=== PATIENT | male | born 1955 | race African-American/Black ===

== ENCOUNTER 2016-09-28 18:57 | Inpatient (IN) | payer OTHER ==
[~2016-09-28] VITALS: Ht 162.6 cm; Wt 55.2 kg
[~2016-09-28 18:57] MED LIST changes: -ACET-1047 PO; -AMLO10TA2 PO; -BUME1TAB PO; -CRG125 PO; -ELVI1TAB6 PO; -ESTR0.1D16 TOP; -FRRS300 PO; -GLC/500 PO; -INSDGIPEN SC; -INSHRIE SQ; -LEVO-366 PO; -LOSA50TA6 PO; -LSN40 PO; -METO50TA16 PO; -MULT-506 PO; -ONDA8TAB6 PO; -POTA10CA28 PO; -[UNRECOGNIZED DRUG - CODE] PO
[2016-09-28 19:09] VITALS: Ht 162.6 cm; Wt 55.2 kg
[2016-09-28] MEDS ORDERED: SODIUM CHLORIDE 0.9% 1000ML 1,000 ML IV STA (19:18)
--- NOTE | 2016-09-28 19:22 | EMERGENCY ROOM VISIT NOTE ---
History Report prepared by Alber: Devon Mcgee Under the Supervision of: Dr. Bruce Martin M.D. First contact with patient: 19:14 Chief Complaint: ABNORMAL LABS Stated Complaint: CRITICAL LABS History of Present Illness The patient is a 60 year old male who presents to the Emergency Room due to abnormal lab results. The patient was sent to the ED to evaluate her renal function. The patient has never had this before. She is experiencing some flank pain that began two weeks ago when she had her cold. She was placed onto antibiotics. Her cold symptoms are gone, but the pain is not. The patient is HIV positive. 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 A total of 10 systems reviewed and were otherwise negative. Past Medical & Surgical Medical Problems: (1) CKD (chronic kidney disease), stage III (2) CVA (cerebral vascular accident) (3) DM type 2 (diabetes mellitus, type 2) (4) G-6-PD deficiency (5) HIV (human immunodeficiency virus infection) (6) HTN (hypertension) (7) Rxur-kr-ufqrpr transgender person Family History No pertinent family history stated Social History Smoking Status: Never Smoker Smokeless Tobacco Use: Unknown Housing Status: other Occupation Status: unemployed Current/Historical Medications Scheduled Aspirin (Aspirin EC Low Dose), 81 MG PO QAM Atorvastatin (Atorvastatin Calcium), 40 MG PO QAM Darunavir Ethanolate (Prezista), 800 MG PO HS Rjltygtppphr-Ychtoiawrr-Yaaiwd (Genvoya [phone] mg), 1 TAB PO DAILY Estradiol (Estradiol), 1 MG PO DAILY Finasteride (Proscar), 5 MG PO DAILY Insulin Human Regular (Humulin R), 1 DOSE SQ SLIDING SCALE Latanoprost 0.005% Oph (Xalatan 0.005% Oph), 1 DROP OPB HS Levofloxacin (Levaquin), 500 MG PO DAILY Lisinopril (Lisinopril), 40 MG PO DAILY Losartan Potassium (Cozaar), 50 MG PO DAILY Metformin Hcl (Glucophage), 500 MG PO BID Allergies Coded Allergies: Penicillins (Verified Allergy, Intermediate, UNKNOWN, 03/20/16) Physical Exam Vital Signs Date Time Temp Pulse Resp B/P Pulse Ox O2 Delivery O2 Flow Rate FiO2 09/28/16 20:16 99 Room Air 09/28/16 20:16 61 18 135/70 99 Room Air 09/28/16 19:09 36.5 64 18 147/80 97 Room Air Physical Exam GENERAL: Patient is a healthy-appearing well-nourished HEAD: Normocephalic atraumatic EYES: Ocular movements intact pupils equal and react to light OROPHARYNX mucous membranes are moist no exudates present no erythema or edema present NECK: Supple no nuchal rigidity CHEST: Good equal expansion LUNGS: Clear and equal to auscultation CARDIAC: Normal S1 and S2 ABDOMEN: Soft nontender no guarding BACK: No CVA tenderness EXTREMITIES: No pain upon palpation normal muscle strength in all groups no clubbing cyanosis or edema NEURO: Patient is following commands is answering questions appropriately. Alert and oriented x3 Cranial Nerves 2-12 grossly intact Medical Decision & Procedures ER Provider Diagnostic Interpretation: Radiology results are stated below per my review and radiologist interpretation: CHEST ONE VIEW PORTABLE CLINICAL HISTORY: Pt c/o cough dyspnea COMPARISON STUDY: 03/20/2016 FINDINGS: The bones soft tissues and hemidiaphragms are normal. The cardiomediastinal silhouette is normal. The lungs are clear. The pulmonary vasculature is normal. IMPRESSION: Negative chest. Electronically signed by: Davion Lopez M.D. 09/28/2016 7:54 PM Dictated Date/Time: 09/28/2016 7:53 PM RENAL ULTRASOUND HISTORY: Renal insufficiency Pt c/o ARF COMPARISON: 12/20/2015 FINDINGS: Right kidney: Maximum dimension 9.2 cm. No evidence for hydronephrosis. Moderate increase in cortical echogenicity Left kidney: Maximum dimension 10.0 cm. No evidence for hydronephrosis. Mild increase in cortical echogenicity Bladder: No bladder wall thickening. The bilateral ureteral jets were identified. IMPRESSION: No evidence for renal hydronephrosis. Mild increase in cortical echogenicity consistent with a component of nonobstructive renal insufficiency. No major change from the prior study Electronically signed by: Davion Lopez M.D. 09/28/2016 8:54 PM Dictated Date/Time: 09/28/2016 8:53 PM Laboratory Results 09/28/16 19:50 Red Blood Count 3.18, Mean Corpuscular Volume 94.7, Mean Corpuscular Hemoglobin 32.4, Mean Corpuscular Hemoglobin Concent 34.2, Mean Platelet Volume 9.1, Neutrophils (%) (Auto) 75.2, Lymphocytes (%) (Auto) 17.2, Monocytes (%) (Auto) 6.0, Eosinophils (%) (Auto) 1.0, Basophils (%) (Auto) 0.1, Neutrophils # (Auto) 6.60, Lymphocytes # (Auto) 1.51, Monocytes # (Auto) 0.53, Eosinophils # (Auto) 0.09, Basophils # (Auto) 0.01 09/28/16 19:50 Test 09/28/16 19:50 White Blood Count 8.78 K/uL (4.8-10.8) Red Blood Count 3.18 M/uL (4.7-6.1) Hemoglobin 10.3 g/dL (14.0-18.0) Hematocrit 30.1 % (42-52) Mean Corpuscular Volume 94.7 fL (80-100) Mean Corpuscular Hemoglobin 32.4 pg (25-34) Mean Corpuscular Hemoglobin Concent 34.2 g/dl (32-36) Platelet Count 381 K/uL (130-400) Mean Platelet Volume 9.1 fL (7.4-10.4) Neutrophils (%) (Auto) 75.2 % Lymphocytes (%) (Auto) 17.2 % Monocytes (%) (Auto) 6.0 % Eosinophils (%) (Auto) 1.0 % Basophils (%) (Auto) 0.1 % Neutrophils # (Auto) 6.60 K/uL (1.4-6.5) Lymphocytes # (Auto) 1.51 K/uL (1.2-3.4) Monocytes # (Auto) 0.53 K/uL (0.11-0.59) Eosinophils # (Auto) 0.09 K/uL (0-0.5) Basophils # (Auto) 0.01 K/uL (0-0.2) RDW Standard Deviation 43.6 fL (36.4-46.3) RDW Coefficient of Variation 12.5 % (11.5-14.5) Immature Granulocyte % (Auto) 0.5 % Immature Granulocyte # (Auto) 0.04 K/uL (0.00-0.02) Anion Gap 11.0 mmol/L (3-11) Est Creatinine Clear Calc Drug Dose 15.3 ml/min Estimated GFR () 18.0 Estimated GFR (Non- 15.5 BUN/Creatinine Ratio 19.4 (10-20) Calcium Level 9.1 mg/dl (8.5-10.1) Total Bilirubin 0.4 mg/dl (0.2-1) Direct Bilirubin 0.2 mg/dl (0-0.2) Aspartate Amino Transf (AST/SGOT) 18 U/L (15-37) Alanine Aminotransferase (ALT/SGPT) 24 U/L (12-78) Alkaline Phosphatase 69 U/L (45-117) Total Protein 9.0 gm/dl (6.4-8.2) Albumin 2.7 gm/dl (3.4-5.0) Medications Administered Medications (Trade) Dose Ordered Sig/Carlin Route Start Time Stop Time Status Last Admin Dose Admin Sodium Chloride (Nss 1000ml) 1,000 ml @ 999 mls/hr Q1H1M STAT IV 09/28/16 19:18 09/28/16 20:18 DC 09/28/16 19:18 999 MLS/HR Calcium Gluconate (Calcium Gluconate 10%) 1,000 mg NOW STAT IV 09/28/16 20:46 09/28/16 20:48 DC 09/28/16 21:39 1,000 MG Dextrose (Dextrose 50% 50ML Syringe) 50 ml NOW STAT IV 09/28/16 20:46 09/28/16 20:48 DC 09/28/16 21:23 50 ML Insulin Human Regular (novoLIN-R U-100 PER UNIT) 10 units NOW STAT IV 09/28/16 20:46 09/28/16 20:48 DC 09/28/16 20:46 10 UNITS Sodium Bicarbonate 50 ml 50 ml NOW STAT IV 09/28/16 20:46 09/28/16 20:48 DC 09/28/16 21:23 50 ML Calcium Gluconate/ Sodium Chloride (Calcium Gluconate 10%/Nss 50ml) 60 ml @ 240 mls/hr NOW STAT IV 09/28/16 20:58 09/28/16 21:12 DC 09/28/16 21:24 240 MLS/HR ECG Indication: back/shoulder pain Rate (beats per minute): 57 Rhythm: sinus bradycardia Findings: RBBB, no acute ischemic change, no ectopy ED Course 1913: Past medical records reviewed. The patient was evaluated in room B7. A complete history and physical examination was performed. 1917: Sodium Chloride 1000 ml @ 999 mls/hr IV 2045: Sodium Bicarbonate 50 ml IV, Insulin Human Regular 10 units IV, Dextrose 50 ml IV, Calcium Gluconate 1000 mg IV. 2049: Upon reexamination the patient is resting. I discussed results and treatment plan with the patient. She verbalizes agreement and understanding. I spoke with Dr. Hernandez from the [facility] Hospitalist Service. The patient will be evaluated by him for further management. Medical Decision Etiologies such as metabolic, infection, hypo/hyperglycemia, electrolyte abnormalities, cardiac sources, intracerebral event, toxicologic, neurologic, as well as others were entertained. This is a 60-year-old patient that presents emergency department with HIV and is on the drug cocktail. He reports with acute renal failure. His potassium is also elevated. For this reason the patient was given normal saline bolus, bicarbonate, calcium, dextrose and insulin. Repeat examination revealed improvement patient's symptoms. Patient was sent for an ultrasound of his kidneys and I did discuss the case with the hospitalist service who agreed to admit the patient. Patient was in agreement with the treatment plan. Consults Time Called: 2044 Consulting Physician: Dr. Hernandez - [facility] Returned Call: 2049 He will be evaluating the patient for further management. Impression Primary Impression: Acute renal failure Critical Care I have personally spent greater than 30 minutes of critical care time in the direct management of this patient. This includes bedside care, interpretation of diagnostic studies, and testing, discussion with consultants, patient, and family members, and other required patient management activities. This 30 minutes is in excess of all separately billable procedures. Scribe Attestation The scribe's documentation has been prepared under my direction and personally reviewed by me in its entirety. I confirm that the note above accurately reflects all work, treatment, procedures, and medical decision making performed by me. Departure Information Dispostion Being Evaluated By Hospitalist Referrals Mike SIMMONS (PCP) Patient Instructions My [facility] Problem Qualifiers Primary Impression: Acute renal failure Acute renal failure type: unspecified Qualified Codes: N17.9 - Acute kidney failure, unspecified
--- NOTE | 2016-09-28 19:55 | DIAGNOSTIC IMAGING REPORT ---
CHEST ONE VIEW PORTABLE CLINICAL HISTORY: Pt c/o cough dyspnea COMPARISON STUDY: 03/20/2016 FINDINGS: The bones soft tissues and hemidiaphragms are normal. The cardiomediastinal silhouette is normal. The lungs are clear. The pulmonary vasculature is normal. IMPRESSION: Negative chest. Electronically signed by: Davion Lopez M.D. 09/28/2016 7:54 PM Dictated Date/Time: 09/28/2016 7:53 PM
[2016-09-28 19:57] LABS: HEMATOCRIT 30.1 % (42-52); MEAN CELL VOLUME 94.7 fL (80-100); MEAN CORPUSCULAR HEMOGLOBIN 32.4 pg (25-34); MEAN CORPUSCULAR HGB CONC 34.2 g/dl (32-36); MEAN PLATELET VOLUME 9.1 fL (7.4-10.4); PLATELET COUNT 381 K/uL (130-400); RED BLOOD COUNT 3.18 M/uL (4.7-6.1); WHITE BLOOD COUNT 8.78 K/uL (4.8-10.8)
[2016-09-28] MEDS ORDERED: ELVI1TAB6 PO (20:03)
[2016-09-28] MEDS ORDERED: INSHRIE SQ (20:03)
[2016-09-28] MEDS ORDERED: LSN40 PO (20:03)
[2016-09-28] MEDS ORDERED: LOSA50TA6 PO (20:03)
[2016-09-28] MEDS ORDERED: LEVO-366 PO (20:03)
[2016-09-28] MEDS ORDERED: GLC/500 PO (20:03)
[2016-09-28 20:14] LABS: BUN/CREATININE RATIO 19.4 (10-20); CALCIUM 9.1 mg/dl (8.5-10.1); CREATININE 3.9 mg/dl (0.60-1.40); POTASSIUM 5.9 mmol/L (3.5-5.1)
[2016-09-28 20:42] LABS: BASO % 0.1 %; BASO ABS # 0.01 K/uL (0-0.2); COMPLETE YES; IG% 0.5 %; LYMPH % 17.2 %; LYMPH ABS # 1.51 K/uL (1.2-3.4); NEUT % 75.2 %
[2016-09-28] MEDS ORDERED: CALCIUM GLUCONATE 10% 10 ML VIAL IV STA (20:46)
[2016-09-28] MEDS ORDERED: SODIUM BICARB 8.4% INJ 50 MEQ/50 ML SYR IV STA (20:46)
[2016-09-28] MEDS ORDERED: NovoLIN-R INSULIN PER UNIT CHARGE IV STA (20:46)
[2016-09-28] MEDS ORDERED: DEXTROSE 50% 50 ML SYR IV STA (20:46)
--- NOTE | 2016-09-28 20:55 | DIAGNOSTIC IMAGING REPORT ---
RENAL ULTRASOUND HISTORY: Renal insufficiency Pt c/o ARF COMPARISON: 12/20/2015 FINDINGS: Right kidney: Maximum dimension 9.2 cm. No evidence for hydronephrosis. Moderate increase in cortical echogenicity Left kidney: Maximum dimension 10.0 cm. No evidence for hydronephrosis. Mild increase in cortical echogenicity Bladder: No bladder wall thickening. The bilateral ureteral jets were identified. IMPRESSION: No evidence for renal hydronephrosis. Mild increase in cortical echogenicity consistent with a component of nonobstructive renal insufficiency. No major change from the prior study Electronically signed by: Davion Lopez M.D. 09/28/2016 8:54 PM Dictated Date/Time: 09/28/2016 8:53 PM
[2016-09-28] MEDS ORDERED: CALCIUM GLUCONATE 10% 1,000 MG in SODIUM CHLORIDE 0.9% 50ML 50 ML IV STA (20:58)
[2016-09-28] MEDS ORDERED: ACETAMINOPHEN 325 MG TAB PO PRN (21:30)
[2016-09-28] MEDS ORDERED: DiphenhydrAMINE HCL 50 MG/ML VIAL IV PRN (21:30)
[2016-09-28] MEDS ORDERED: ALUMINUM/MAGNESIUM/SIMETH (MAALOX MAX) 30 ML UDC PO PRN (21:30)
[2016-09-28] MEDS ORDERED: PROMETHAZINE HCL INJ 12.5 MG in SODIUM CHLORIDE 0.9% 50ML 50 ML IV PRN (21:30)
[2016-09-28] MEDS ORDERED: ZOLPIDEM TARTRATE 5 MG TAB PO PRN (21:30)
[2016-09-28] MEDS ORDERED: MAGNESIUM HYDROXIDE SUSP 30 ML UDC PO PRN (21:30)
[2016-09-28] MEDS ORDERED: ONDANSETRON INJ 2 MG/ML 2 ML VIAL IV PRN ×2 (21:30)
[2016-09-28] MEDS ORDERED: LORAZEPAM 2 MG/ML 1 ML VIAL IV PRN (21:30)
[2016-09-28 22:20] VITALS: BP 164/82; PULSE 69; TEMP 36.5; O2SAT 98
[2016-09-28] MEDS: SODIUM CHLORIDE 0.9% 1000ML 1,000 ML IV SCH (23:17)
--- NOTE | 2016-09-29 02:12 | History and Physical ---
History & Physical Date & Time of Service: Sep 29, 2016 at 01:59 Chief Complaint: Acute Renal Failure, Hyperalemia Primary Care Physician: Mike SIMMONS History of Present Illness Source: patient The patient is a 60-year-old transgender male resident of [facility], who presents to the emergency department due to abnormal kidney function tests performed at that facility. The patient had an upper respiratory infection a few weeks ago, those to with antibiotics, and did have resolution of the symptoms, however, the patient felt that dehydration was an issue. The patient is HIV positive on medication. Past Medical/Surgical History Medical Problems: (1) CKD (chronic kidney disease), stage III Status: Chronic (2) CVA (cerebral vascular accident) Status: Chronic (3) DM type 2 (diabetes mellitus, type 2) Status: Chronic (4) G-6-PD deficiency Status: Chronic (5) HIV (human immunodeficiency virus infection) Status: Chronic (6) HTN (hypertension) Status: Chronic (7) Vzbq-zu-rocgsn transgender person Status: Chronic Family History No pertinent family history stated Social History Smoking Status: Current Every Day Smoker Smokeless Tobacco Use: No Alcohol Use: none Drug Use: none Housing status: other ([facility] Occupational Status: unemployed Multi-Drug Resistant Organisms History of MDRO: No Allergies Coded Allergies: Penicillins (Verified Allergy, Intermediate, UNKNOWN, 03/20/16) Home Medications Scheduled Aspirin (Aspirin EC Low Dose), 81 MG PO QAM Atorvastatin (Atorvastatin Calcium), 40 MG PO QAM Darunavir Ethanolate (Prezista), 800 MG PO HS Ibahbfrvzflo-Ibdjtdcaid-Xpvtkz (Genvoya [phone] mg), 1 TAB PO DAILY Estradiol (Estradiol), 1 MG PO DAILY Finasteride (Proscar), 5 MG PO DAILY Insulin Human Regular (Humulin R), 1 DOSE SQ SLIDING SCALE Latanoprost 0.005% Oph (Xalatan 0.005% Oph), 1 DROP OPB HS Levofloxacin (Levaquin), 500 MG PO DAILY Lisinopril (Lisinopril), 40 MG PO DAILY Losartan Potassium (Cozaar), 50 MG PO DAILY Metformin Hcl (Glucophage), 500 MG PO BID Review of Systems The patient denies chest pain, palpitations, shortness of breath, cough, lower extremity swelling, vision change, hearing change, sore throat, fevers, chills, sweats, weight change, fatigue, nausea, vomiting, abdominal pain, pelvic pain, blood in urine or stool, dysuria, urinary frequency or urgency, lightheadedness , dizziness, headache, memory loss, rash, abnormal bruising or bleeding, imbalance, focal or generalized weakness, numbness or tingling in arms or legs, arthralgias or myalgias, back or neck pain, night sweats, or allergy symptoms. The review of systems is otherwise negative other than for that already noted above, and at least 10 systems have been reviewed. Physical Exam Vital Signs Date Time Temp Pulse Resp B/P Pulse Ox O2 Delivery O2 Flow Rate FiO2 09/29/16 00:00 Room Air 09/28/16 22:20 36.5 69 14 164/82 98 Room Air 09/28/16 21:58 68 16 143/80 97 Room Air 09/28/16 20:16 99 Room Air 09/28/16 20:16 61 18 135/70 99 Room Air 09/28/16 19:09 36.5 64 18 147/80 97 Room Air The patient is awake, well-developed and adequately nourished, alert and oriented 3, normocephalic and atraumatic, lying in bed and in no acute distress. HEENT--PERRL, EOMI, mucous membranes and oropharynx dry. Neck--supple, no JVD or bruits, thyroid normal, trachea midline, no adenopathy. Heart--normal S1 and S2, no extra beats, no murmurs, rubs or gallops. Lungs--clear bilaterally with good air movement, no respiratory distress, no accessory muscle use. Abdomen--normal bowel sounds and soft, nontender and nondistended, no hernias or masses, no organomegaly. Extremities--no cyanosis, clubbing or edema. There are good distal pulses b/l. Dermatologic--normal skin turgor, normal color, warm and dry, no abnormal lymph nodes, no rash. Neurologic--cranial nerves II through XII grossly intact, motor and sensory examination normal. Rheumatologic--normal range of motion, nontender, muscles and joints. Psychiatric--normal affect. Diagnostics Laboratory Results Results Past 24 Hours Test 09/28/16 19:50 2/21/17 00:15 Range/Units White Blood Count 8.78 4.8-10.8 K/uL Red Blood Count 3.18 4.7-6.1 M/uL Hemoglobin 10.3 14.0-18.0 g/dL Hematocrit 30.1 42-52 % Mean Corpuscular Volume 94.7 80-100 fL Mean Corpuscular Hemoglobin 32.4 25-34 pg Mean Corpuscular Hemoglobin Concent 34.2 32-36 g/dl Platelet Count 381 130-400 K/uL Mean Platelet Volume 9.1 7.4-10.4 fL Neutrophils (%) (Auto) 75.2 % Lymphocytes (%) (Auto) 17.2 % Monocytes (%) (Auto) 6.0 % Eosinophils (%) (Auto) 1.0 % Basophils (%) (Auto) 0.1 % Neutrophils # (Auto) 6.60 1.4-6.5 K/uL Lymphocytes # (Auto) 1.51 1.2-3.4 K/uL Monocytes # (Auto) 0.53 0.11-0.59 K/uL Eosinophils # (Auto) 0.09 0-0.5 K/uL Basophils # (Auto) 0.01 0-0.2 K/uL RDW Standard Deviation 43.6 36.4-46.3 fL RDW Coefficient of Variation 12.5 11.5-14.5 % Immature Granulocyte % (Auto) 0.5 % Immature Granulocyte # (Auto) 0.04 0.00-0.02 K/uL Sodium Level 137 136-145 mmol/L Potassium Level 5.9 3.5-5.1 mmol/L Chloride Level 109 98-107 mmol/L Carbon Dioxide Level 17 21-32 mmol/L Anion Gap 11.0 3-11 mmol/L Blood Urea Nitrogen 76 7-18 mg/dl Creatinine 3.90 0.60-1.40 mg/dl Est Creatinine Clear Calc Drug Dose 15.3 ml/min Estimated GFR () 18.0 Estimated GFR (Non- 15.5 BUN/Creatinine Ratio 19.4 10-20 Random Glucose 123 70-99 mg/dl Calcium Level 9.1 8.5-10.1 mg/dl Total Bilirubin 0.4 0.2-1 mg/dl Direct Bilirubin 0.2 0-0.2 mg/dl Aspartate Amino Transf (AST/SGOT) 18 15-37 U/L Alanine Aminotransferase (ALT/SGPT) 24 12-78 U/L Alkaline Phosphatase 69 45-117 U/L Total Protein 9.0 6.4-8.2 gm/dl Albumin 2.7 3.4-5.0 gm/dl Microbiology Results 09/29/16 MRSA DNA Surveillance Screen, Received Pending Diagnostic Radiology Patient Name: CHAUNCEY CHAU [id number] Unit Number: [id number] Dictated: 09/28/162052 Transcribed: 09/28/162052 MS Printed Date/Time: [~ rep prt dt]/[~ rep prt tm] [~ rep ct labl] - [~ rep ct ivnm] [facility] Radiology Department [place] [id number] Dictated: 09/28/162052 Transcribed: 09/28/162052 MS Printed Date/Time: [~ rep prt dt]/[~ rep prt tm] [~ rep ct labl] - [~ rep ct ivnm] RENAL ULTRASOUND HISTORY: Renal insufficiency Pt c/o ARF COMPARISON: 12/20/2015 FINDINGS: Right kidney: Maximum dimension 9.2 cm. No evidence for hydronephrosis. Moderate increase in cortical echogenicity Left kidney: Maximum dimension 10.0 cm. No evidence for hydronephrosis. Mild increase in cortical echogenicity Bladder: No bladder wall thickening. The bilateral ureteral jets were identified. IMPRESSION: No evidence for renal hydronephrosis. Mild increase in cortical echogenicity consistent with a component of nonobstructive renal insufficiency. No major change from the prior study Electronically signed by: Davion Lopez M.D. 09/28/2016 8:54 PM Dictated Date/Time: 09/28/2016 8:53 PM The status of this report is Signed. Draft = Not yet reviewed or approved by Radiologist. Signed = Reviewed and approved by Radiologist. <AttendingPhy></AttendingPhy> <FamilyPhy>Mike SIMMONS</FamilyPhy> <PrimaryPhy> Mike SIMMONS</PrimaryPhy> <UnitNumber>[id number]</UnitNumber> <VisitNumber> [id number]</VisitNumber> <PatientName>CHAUNCEY CHAU [id number]</PatientName> < DateOfBirth>1955</DateOfBirth> <Location>C[facility]B</Location> <ServiceDate></ServiceDate> <MNE>ESINDI</MNE> <OrderingPhy>Bruce Martin MD</ OrderingPhy> <OrderingPhyMNE>f rep ord dr murry</OrderingPhyMNE> <DictatingPhyMNE> f rep dict dr murry</DictatingPhyMNE> <CCListMNE>f rep ct mne</CCListMNE> < AdmittingPhyMNE>f pt admit dr murry</AdmittingPhyMNE> <AttendingPhyMNE>f pt attend dr murry</AttendingPhyMNE> <ConsultingPhyMNE>f pt consult dr murry</ConsultingPhyMNE> <FamilyPhyMNE>f pt fam dr murry</FamilyPhyMNE> <OtherPhyMNE>f pt other dr murry</OtherPhyMNE> < PrimaryPhyMNE>f pt prim care dr murry</PrimaryPhyMNE> <ReferringPhyMNE>f pt referring dr murry</ReferringPhyMNE> Patient Name: CHAUNCEY CHAU [id number] Unit Number: [id number] Dictated: 09/28/161952 Transcribed: 09/28/161952 MA Printed Date/Time: [~ rep prt dt]/[~ rep prt tm] [~ rep ct labl] - [~ rep ct ivnm] [facility] [place] [place] [address] Dictated: 09/28/161952 Transcribed: 09/28/161952 MS Printed Date/Time: [~ rep prt dt]/[~ rep prt tm] [~ rep ct labl] - [~ rep ct ivnm] [~ rep ct add3]] CHEST ONE VIEW PORTABLE CLINICAL HISTORY: Pt c/o cough dyspnea COMPARISON STUDY: 03/20/2016 FINDINGS: The bones soft tissues and hemidiaphragms are normal. The cardiomediastinal silhouette is normal. The lungs are clear. The pulmonary vasculature is normal. IMPRESSION: Negative chest. Electronically signed by: Davion Lopez M.D. 09/28/2016 7:54 PM Dictated Date/Time: 09/28/2016 7:53 PM The status of this report is Signed. Draft = Not yet reviewed or approved by Radiologist. Signed = Reviewed and approved by Radiologist. <AttendingPhy></AttendingPhy> <FamilyPhy>Mike SIMMONS</FamilyPhy> <PrimaryPhy> Mike SIMMONS</PrimaryPhy> <UnitNumber>[id number]</UnitNumber> <VisitNumber> [id number]</VisitNumber> <PatientName>CHAUNCEY CHAU [id number]</PatientName> < DateOfBirth>1955</DateOfBirth> <Location>C.EDB</Location> <ServiceDate></ServiceDate> <MNE>ESINDI</MNE> <OrderingPhy>Bruce Martin MD</ OrderingPhy> <OrderingPhyMNE>f rep ord dr murry</OrderingPhyMNE> <DictatingPhyMNE> f rep dict dr murry</DictatingPhyMNE> <CCListMNE>f rep ct mne</CCListMNE> < AdmittingPhyMNE>f pt admit dr murry</AdmittingPhyMNE> <AttendingPhyMNE>f pt attend dr murry</AttendingPhyMNE> <ConsultingPhyMNE>f pt consult dr murry</ConsultingPhyMNE> <FamilyPhyMNE>f pt fam dr murry</FamilyPhyMNE> <OtherPhyMNE>f pt other dr murry</OtherPhyMNE> < PrimaryPhyMNE>f pt prim care dr murry</PrimaryPhyMNE> <ReferringPhyMNE>f pt referring dr murry</ReferringPhyMNE> EKG EKG shows sinus bradycardia at 57 bpm, right bundle branch block, LVH. Right bundle branch block is new compared to last EKG of 03/21/2016 Impression Assessment and Plan Acute renal failure with mild hyperkalemia--the patient will be admitted to the medical floor. He did receive an amp of D50 followed by 10 units of regular insulin by emergency department personnel. He'll be placed on normal saline at 150 ML's per hour, will hold lisinopril 40 mg by mouth daily and losartan potassium 50 mg by mouth daily. We'll repeat BMP and magnesium levels in the a.m. His renal ultrasound showed mild cortical hypoechogenicity. Continue enteric-coated aspirin 81 mg by mouth every morning. Hypertension--hold lisinopril and losartan as noted above due to acute renal failure. We'll place on amlodipine 5 mg by mouth twice a day with hold parameters. HIV--continue all current medications: Prezista 800mg po hs,, Genvoya 150/150/ 200/10 one by mouth daily. 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 Diabetes mellitus--hold metformin until creatinine is less than 1.4. Hold regular insulin sliding scale. Place on Accu-Cheks before meals and at bedtime with NovoLog coverage. Hypercholesterolemia--continue atorvastatin 40 mg by mouth every morning. BPH--continue Proscar 5 mg by mouth daily. Glaucoma--continue Xalatan 0.005%, solution, 1 drop OPB at bedtime Level of Care Med/Surg Advanced Directives Existing Advance Directive: No Existing Living Will: No Existing Power of Literacy Education Professor: No Resuscitation Status FULL RESUSCITATION VTE Prophylaxis VTE Risk Assessment Done? Y/N: Yes Risk Level: Moderate Given or contraindicated: SCD's
[2016-09-29] MEDS: SODIUM CHLORIDE 0.9% 1000ML 1,000 ML IV SCH ×3 (05:14→21:31)
[2016-09-29 06:33] LABS: BASO % 0.1 %; BASO ABS # 0.01 K/uL (0-0.2); EOS % 1.3 %; HEMATOCRIT 25.8 % (42-52); IG% 0.3 %; LYMPH % 22.8 %; LYMPH ABS # 1.64 K/uL (1.2-3.4); MEAN CELL VOLUME 92.1 fL (80-100); MEAN CORPUSCULAR HEMOGLOBIN 31.4 pg (25-34); MEAN CORPUSCULAR HGB CONC 34.1 g/dl (32-36); MONO % 4.9 %; NEUT % 70.6 %; PLATELET COUNT 336 K/uL (130-400)
[2016-09-29 07:01] LABS: COMPLETE YES; HYPERSEGMENTED POLYS 1+
[2016-09-29 07:09] LABS: CALCIUM 8.5 mg/dl (8.5-10.1); CREATININE 2.8 mg/dl (0.60-1.40); MAGNESIUM 2.3 mg/dl (1.8-2.4); POTASSIUM 5.8 mmol/L (3.5-5.1)
[2016-09-29] MEDS: [UNRECOGNIZED DRUG - REMARK] SCH ×3 (07:36→16:00)
[2016-09-29 07:46] VITALS: BP 176/81; PULSE 69; TEMP 36.7; O2SAT 97
[2016-09-29] MEDS: ATORVASTATIN 40 MG TAB PO SCH (07:48)
[2016-09-29] MEDS: ESTRADIOL 1 MG TAB PO SCH (07:48)
[2016-09-29] MEDS: FINASTERIDE 5 MG TAB PO SCH (07:48)
[2016-09-29] MEDS: AMLODIPINE BESYLATE 5 MG TAB PO SCH ×2 (07:49→21:31)
[2016-09-29] MEDS ORDERED: SODIUM POLYST. SULF SUSP 15G/60ML PO ONE (08:00)
[2016-09-29] MEDS: ASPIRIN 81 MG ECTAB PO SCH (09:12)
[2016-09-29 16:00] VITALS: BP 136/75; PULSE 68; TEMP 36.9; O2SAT 98
[2016-09-29 16:25] VITALS: O2SAT 98
[2016-09-29] MEDS ORDERED: DEXTROSE 50% 50 ML SYR IV PRN (17:45)
[2016-09-29] MEDS ORDERED: GLUCOSE 10 TABS/TUBE PO PRN (17:45)
[2016-09-29] MEDS ORDERED: GLUCAGON FOR INJ 1 MG VIAL SQ PRN (17:45)
[2016-09-29] MEDS ORDERED: GLUCOSE 40% GEL 15 GM TUBE PO PRN (17:45)
[2016-09-29] MEDS ORDERED: LATANOPROST 0.005% OP SOLN 2.5 ML BTL OPB SCH (21:00)
[2016-09-29] MEDS: INSULIN ASPART 100 UNITS/ML 3 ML PEN SC SCH (21:00)
[2016-09-29 23:37] VITALS: BP 162/78; PULSE 71; TEMP 36.8; O2SAT 98
[2016-09-30] MEDS: SODIUM CHLORIDE 0.9% 1000ML 1,000 ML IV SCH ×2 (01:48→08:18)
[2016-09-30 06:54] LABS: BASO % 0.2 %; BASO ABS # 0.01 K/uL (0-0.2); EOS % 1.6 %; HEMATOCRIT 24.5 % (42-52); IG% 0.5 %; LYMPH % 22.4 %; LYMPH ABS # 1.44 K/uL (1.2-3.4); MEAN CORPUSCULAR HEMOGLOBIN 31.8 pg (25-34); MEAN CORPUSCULAR HGB CONC 33.5 g/dl (32-36); MEAN PLATELET VOLUME 9.2 fL (7.4-10.4); MONO % 7.3 %; PLATELET COUNT 346 K/uL (130-400); RED BLOOD COUNT 2.58 M/uL (4.7-6.1); WHITE BLOOD COUNT 6.43 K/uL (4.8-10.8)
[2016-09-30 07:22] LABS: COMPLETE YES; EOSINOPHIL % 0.9 %; HYPERSEGMENTED POLYS 1+; LYMPH ABS # 0.79 K/uL (1.2-3.4); LYMPHOCYTE % 12.3 %; NEUTROPHILS % 82.4 %
[2016-09-30 07:35] VITALS: BP 163/82; PULSE 68; TEMP 36.9; O2SAT 98
[2016-09-30 07:47] LABS: BUN/CREATININE RATIO 18.8 (10-20); CALCIUM 7.5 mg/dl (8.5-10.1); CREATININE 1.9 mg/dl (0.60-1.40); MAGNESIUM 1.8 mg/dl (1.8-2.4); POTASSIUM 5.1 mmol/L (3.5-5.1)
[2016-09-30] MEDS: [UNRECOGNIZED DRUG - REMARK] SCH ×2 (08:00)
[2016-09-30] MEDS: ESTRADIOL 1 MG TAB PO SCH (08:17)
[2016-09-30] MEDS: AMLODIPINE BESYLATE 5 MG TAB PO SCH (08:17)
[2016-09-30] MEDS: FINASTERIDE 5 MG TAB PO SCH (08:17)
[2016-09-30] MEDS: INSULIN ASPART 100 UNITS/ML 3 ML PEN SC SCH (08:17)
[2016-09-30] MEDS: ASPIRIN 81 MG ECTAB PO SCH (08:18)
[2016-09-30] MEDS: ATORVASTATIN 40 MG TAB PO SCH (08:18)
--- NOTE | 2016-09-30 11:06 | Discharge Instructions ---
Discharge Instructions Admission Reason for Admission: Acute Renal Failure, Hyperalemia Discharge Discharge Diagnosis / Problem: Acute kidney injury, hyperkalemia Discharge Goals Goal(s): Decrease discomfort, Improve function, Increase independence, Improve disease control, Diagnostic testing, Therapeutic intervention Activity Recommendations Activity Limitations: resume your previous activity Exercise/Sports Limitations: none Shower/Bathe: no limitations Driving or Machine Use: no limitations . Instructions / Follow-Up Instructions / Follow-Up Patient to be discharged back to correctional facility Please continue to hold lisinopril, losartan and metformin Can take norvasc 10 mg daily for blood pressure and please utilize sliding scale insulin or another replacement pill for hyperglycemia Will need repeat BMP in 2 days to assess kidney function Current Hospital Diet Patient's current hospital diet: Renal Diet, Diabetes Type 2 Diet Discharge Diet Recommended Diet: Diabetes Type 2 Diet Fluid Restriction: None Pending Studies Studies pending at discharge: no Medical Emergencies . Who to Call and When: Medical Emergencies: If at any time you feel your situation is an emergency, please call 911 immediately. . Non-Emergent Contact Non-Emergency issues call your: Primary Care Provider Call Non-Emergent contact if: you have a fever, your pain is worsening . . "Provider Documentation" section prepared by Guillermo Swanson. VTE Core Measure Inpt VTE Proph given/why not?: SCD's
[2016-09-30] MEDS ORDERED: AMLO10TA2 PO (11:07)
[2016-09-30 11:25] VITALS: BP 163/82; PULSE 68; TEMP 36.9; O2SAT 98
[2016-09-30] MEDS ORDERED: BENZONATATE 100MG CAP PO ONE (11:45)
--- NOTE | 2016-09-30 14:29 | Discharge Summary ---
Discharge Summary Date of Service Sep 30, 2016. Discharge Summary Admission Date: Sep 28, 2016 at 21:25 Discharge Date: Sep 30, 2016 Discharge Disposition: Home ([facility]rection[facility] facility) Principal Diagnosis: Acute kidney injury, hyperkalemia Medication Reconciliation New Medications: Amlodipine Besylate (Norvasc) 10 Mg Tab 1 TAB PO DAILY for 30 Days, #30 TAB 5 Refills Continued Medications: Aspirin (Aspirin EC Low Dose) 81 Mg Ectab 81 MG PO QAM for 30 Days Atorvastatin (Atorvastatin Calcium) 40 Mg Tab 40 MG PO QAM for 30 Days, #30 TAB Darunavir Ethanolate (Prezista) 800 Mg Tab 800 MG PO HS Kwqnmzekyutu-Gsqcupyptw-Dntxpv (Genvoya [phone] mg) 1 Tab Tab 1 TAB PO DAILY Estradiol (Estradiol) 2 Mg Tab 1 MG PO DAILY for 90 Days, #45 TAB 3 Refills Finasteride (Proscar) 5 Mg Tab 5 MG PO DAILY, TAB Insulin Human Regular (Humulin R) 100 Units/Ml Susp 1 DOSE SQ SLIDING SCALE 201-250= 2 UNITS 251-300= 4 UNITS 301-350= 6 UNITS 351-400= 8 UNITS 401-450= 10 UNITS 451-500= 12 UNITS Latanoprost 0.005% Oph (Xalatan 0.005% Oph) Soln 1 DROP OPB HS Discontinued Medications: Levofloxacin (Levaquin) 500 Mg Tab 500 MG PO DAILY for 7 Days, TAB Lisinopril (Lisinopril) 40 Mg Tab 40 MG PO DAILY Losartan Potassium (Cozaar) 50 Mg Tab 50 MG PO DAILY, TAB Metformin Hcl (Glucophage) 500 Mg Tab 500 MG PO BID, TAB Discharge Exam Review of Systems: Constitutional: No chills, No fever ENT: No nasal symptoms, No sore throat, No unusual epistaxis Respiratory: + cough, No sputum Cardiovascular: No chest pain, No claudication, No edema, No orthopnea Abdomen: No diarrhea, No nausea, No pain, No vomiting Musculoskeletal: No joint pain, No muscle pain Genitourinary - Female: No dysuria, No urinary frequency, No urinary incontinence, No urinary urgency Neurologic: No paralysis, No weakness Physical Exam: General Appearance: WD/WN, no apparent distress Neck: supple, thyroid normal Respiratory/Chest: chest non-tender, lungs clear Cardiovascular: no gallop, no JVD Abdomen / GI: non tender, soft Neurologic/Psychiatric: alert, oriented x 3 Hospital Course Acute renal failure with mild hyperkalemia--the patient was admitted to the medical floor. He did receive an amp of D50 followed by 10 units of regular insulin by emergency department personnel. He'll be placed on normal saline at 150 ML's per hour, will hold lisinopril 40 mg by mouth daily and losartan potassium 50 mg by mouth daily. Renal ultrasound showed mild cortical hypoechogenicity but no hydronephrosis. Cr 3.9 --> 2.8 --> 1.9. Will recheck in 2 more days on discharge. Cont to hold lisinopril, losartan and metformin till then. Hypertension--hold lisinopril and losartan as noted above due to acute renal failure. We'll place on amlodipine 10 mg PO daily and continue on discharge HIV--continue all current medications: Prezista 800mg PO HS, Genvoya 150/150/200 /10 one by mouth daily. 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 Diabetes mellitus--hold metformin until creatinine is less than 1.4. Hold regular insulin sliding scale. Place on Accu-Cheks before meals and at bedtime with NovoLog coverage. Hypercholesterolemia--continue atorvastatin 40 mg by mouth every morning. BPH--continue Proscar 5 mg by mouth daily. Glaucoma--continue Xalatan 0.005%, solution, 1 drop OPB at bedtime Total Time Spent: Greater than 30 minutes This includes examination of the patient, discharge planning, medication reconciliation, and communication with other providers. Discharge Instructions Please refer to the electronic Patient Visit Report (Discharge Instructions) for additional information.
[2017-04-25] MEDS ORDERED: FRRS300 PO (18:23)
[2017-04-25] MEDS ORDERED: INSDGIPEN SC (18:23)
[2017-04-25] MEDS ORDERED: BUME1TAB PO (18:23)
[2017-04-25] MEDS ORDERED: POTA10CA28 PO (18:23)
[2017-04-25] MEDS ORDERED: ACET-1047 PO (18:23)
[2017-04-25] MEDS ORDERED: CRG125 PO (18:23)
== END 2016-09-30 13:08 | disposition home or self-care (01) | DRG 684 ==
LOC: ENRESERVDT → ENRESERVTM → C.EDB 18:58 → C.4E 21:25
PROVIDERS: ADMIT Hospitalist; ATTEND Hospitalist
DX: N17.9 Acute kidney failure, unspecified (principal); E87.5 Hyperkalemia; N18.3 Chronic kidney disease, stage 3 (moderate); F17.210 Nicotine dependence, cigarettes, uncomplicated; N40.0 Benign prostatic hyperplasia without lower urinary tract symptoms; I12.9 Hypertensive chronic kidney disease with stage 1 through stage 4 chronic kidney disease, or unspecified chronic kidney disease; D55.0 Anemia due to glucose-6-phosphate dehydrogenase [G6PD] deficiency; H40.9 Unspecified glaucoma; E78.00 Pure hypercholesterolemia, unspecified; E11.22 Type 2 diabetes mellitus with diabetic chronic kidney disease; Z21 Asymptomatic human immunodeficiency virus [HIV] infection status; Z87.890 Personal history of sex reassignment; Z86.73 Personal history of transient ischemic attack (TIA), and cerebral infarction without residual deficits; Z79.899 Other long term (current) drug therapy; Z79.82 Long term (current) use of aspirin; Z79.4 Long term (current) use of insulin

== ENCOUNTER → 2016-09-28 | Outpatient (CLI) | payer OTHER ==
[~2016-09-28] MED LIST: ACET-1047 PO; AMLO10TA2 PO; APR25 PO; ASPEC81 PO; BUME1TAB PO; CRG125 PO; CYCL10TA6 PO; DARU1TAB5 PO; DOLU1TAB PO; ELVI1TAB6 PO; ESTR0.1D16 TOP; ESTR2TAB PO; FINA5TAB PO; FRRS300 PO; GLC/500 PO; INSDGIPEN SC; INSHRIE SQ; LATA0.009 OPB; LEVO-366 PO; LOSA50TA6 PO; LPT40 PO; LSN40 PO; METO50TA16 PO; MULT-477 PO; MULT-506 PO; NRV5 PO; ONDA8TAB6 PO; POTA10CA28 PO; RTN100 PO; [UNRECOGNIZED DRUG - CODE] PO; [UNRECOGNIZED DRUG - CODE] PO
[2016-09-28 16:06] LABS: BLOOD UREA NITROGEN 75 mg/dl (7-18); BUN/CREATININE RATIO 19.6 (10-20); CALCIUM 8.7 mg/dl (8.5-10.1); CARBON DIOXIDE 17 mmol/L (21-32); CHLORIDE 113 mmol/L (98-107); GLUCOSE 94 mg/dl (70-99); SODIUM 141 mmol/L (136-145)
[2016-09-28 16:08] LABS: POTASSIUM 6.4 mmol/L (3.5-5.1)
== END ==
LOC: C.LABSPEC 14:54
DX: N17.9 Acute kidney failure, unspecified (principal)

== ENCOUNTER 2017-04-16 10:00 | Inpatient (IN) | payer OTHER ==
[2017-04-16] VITALS (37 sets, daily range): BP systolic 74–154; BP diastolic 52–78; PULSE 33–71; TEMP 30.6–34.6; O2SAT 70–100; BMI 22.9
[~2017-04-16] VITALS: Ht 177.8 cm; Wt 66.5 kg
[~2017-04-16 10:00] MED LIST changes: +AMLO10TA2 PO; -APR25 PO; -CYCL10TA6 PO; -DOLU1TAB PO; +ELVI1TAB6 PO; +INSHRIE SQ; -MULT-477 PO; -NRV5 PO; -RTN100 PO; -[UNRECOGNIZED DRUG - CODE] PO
[2017-04-16] MEDS ORDERED: RAPID SEQUENCE INDUCTION BAG ONE (10:04)
[2017-04-16] MEDS ORDERED: ONDA8TAB6 PO (10:12)
[2017-04-16] MEDS ORDERED: BUME1TAB PO (10:12)
[2017-04-16] MEDS ORDERED: MULT-506 PO (10:12)
[2017-04-16] MEDS ORDERED: METO50TA16 PO (10:12)
[2017-04-16] MEDS ORDERED: ESTR0.1D16 TOP (10:12)
[2017-04-16] MEDS ORDERED: POTA10CA28 PO (10:12)
[2017-04-16] MEDS ORDERED: [UNRECOGNIZED DRUG - CODE] PO (10:12)
[2017-04-16] MEDS ORDERED: VECURONIUM BROMIDE 10 MG VIAL IV STA (10:13)
[2017-04-16] MEDS ORDERED: PROPOFOL IV EMULSION 10 MG/ML 100 ML VIAL IV ONE (10:15)
[2017-04-16] MEDS ORDERED: PROPOFOL IV EMULSION 10 MG/ML 100 ML VIAL IV PRN (10:15)
[2017-04-16] MEDS ORDERED: MAGNESIUM SULFATE 1GM / D5W 1 GM BAG IV STA (10:16)
[2017-04-16] MEDS ORDERED: METOPROLOL TARTRATE 1 MG/ML VIAL IV STA (10:17)
--- NOTE | 2017-04-16 10:26 | DIAGNOSTIC IMAGING REPORT ---
CHEST ONE VIEW PORTABLE HISTORY: 61 years-old Male CHEST PAIN acute atypical chest pain with CODE BLUE. COMPARISON: Chest radiograph 09/28/2016 TECHNIQUE: Portable supine AP view of the chest FINDINGS: Endotracheal tube is present terminating 3 mm superior to the mil coursing towards the right mainstem bronchus. Cardiac silhouette is moderately enlarged. Lungs are hypoinflated with bronchovascular crowding and pulmonary vascular congestion. No pneumothorax, pleural effusion or focal airspace consolidation. The bones are grossly intact. IMPRESSION: 1. Low-lying endotracheal tube. Recommend retraction of approximately 2.5 to 3 cm. 2. Cardiomegaly with hypoinflation, bronchovascular crowding and mild pulmonary vascular congestion. The above report was generated using voice recognition software. It may contain grammatical, syntax or spelling errors. Electronically signed by: Dickson Tate M.D. 04/16/2017 10:24 AM Dictated Date/Time: 04/16/2017 10:22 AM
--- NOTE | 2017-04-16 10:31 | EMERGENCY ROOM VISIT NOTE ---
History Report prepared by Alber: Eulalia Latham Under the Supervision of: Dr. Bruce Martin M.D. First contact with patient: 10:01 Stated Complaint: RESPIRATORY DIFFICULTY History of Present Illness The patient is a 61 year old male who presents to the Emergency Room for cardiac arrest. The patient is currently incarcerated at [facility]. Per EMS he has been short of breath for the past two days with bilateral leg swelling. The patient went asystolic in the ambulance and compressions were performed. A code blue was called in the ED prior to the patient's arrival. The history is limited secondary to cardiac arrest. Source of History: EMS History Limited By: cardiac arrest Onset: 2 days CLASSIFICATION CLERK Position: chest Timing: constant Associated Symptoms: + SOB Note: Pt has bilateral leg swelling. Review of Systems ROS is limited secondary to cardiac arrest. Past Medical & Surgical Medical Problems: (1) Cardiac arrest (2) CKD (chronic kidney disease), stage III (3) CVA (cerebral vascular accident) (4) DM type 2 (diabetes mellitus, type 2) (5) G-6-PD deficiency (6) HIV (human immunodeficiency virus infection) (7) HTN (hypertension) (8) Egus-ua-uqtahb transgender person Family History No pertinent family history stated Social History Smoking Status: Current Every Day Smoker Drug Use: none Housing Status: other Occupation Status: unemployed Current/Historical Medications Scheduled Amlodipine Besylate (Norvasc), 1 TAB PO DAILY Aspirin (Aspirin EC Low Dose), 81 MG PO QAM Atorvastatin (Atorvastatin Calcium), 40 MG PO QAM Bumetanide (Bumex), 1 MG PO DIRECTED Darunavir Ethanolate (Prezista), 800 MG PO HS Emsmrbwvaipo-Pcugzxoufu-Orojqz (Genvoya [phone] mg), 1 TAB PO DAILY Estradiol (Estradiol), 1 MG PO DAILY Estradiol (Climara), 0.1 MG TOP DAILY Finasteride (Proscar), 5 MG PO DAILY Insulin Human Regular (Humulin R), 1 DOSE SQ SLIDING SCALE Latanoprost 0.005% Oph (Xalatan 0.005% Oph), 1 DROP OPB HS Metoprolol Tartrate (Lopressor) (Lopressor), 50 MG PO BID Multivitamin (Multivitamin), 1 TAB PO DAILY Potassium Chloride (Micro-K Ext Rel), 10 MEQ PO DAILY Scheduled PRN Glucose (Bd Glucose), 4 MG PO QID PRN for PRN Ondansetron Hcl (Zofran), 8 MG PO BID PRN for Nausea Allergies Coded Allergies: Penicillins (Verified Allergy, Intermediate, UNKNOWN, 04/16/17) Physical Exam Vital Signs Date Time Temp Pulse Resp B/P (MAP) Pulse Ox O2 Delivery O2 Flow Rate FiO2 04/16/17 11:50 77 12 04/16/17 11:39 121/57 04/16/17 11:36 122/59 04/16/17 11:35 43 12 100 04/16/17 11:34 123/58 04/16/17 11:32 122/59 04/16/17 11:30 45 12 120/59 100 04/16/17 11:28 123/61 04/16/17 11:26 118/60 04/16/17 11:25 46 12 100 04/16/17 11:24 123/61 04/16/17 11:20 48 12 100 04/16/17 11:19 124/55 04/16/17 11:16 125/61 04/16/17 11:15 48 12 100 04/16/17 11:14 125/62 04/16/17 11:12 132/64 04/16/17 11:10 50 12 131/60 100 04/16/17 11:05 55 12 100 Mechanical Ventilator 100 04/16/17 11:04 149/68 04/16/17 11:02 177/75 04/16/17 11:01 223/91 04/16/17 11:00 88 12 100 04/16/17 10:58 122/85 04/16/17 10:56 117/62 04/16/17 10:55 40 12 130/63 100 04/16/17 10:54 129/59 04/16/17 10:52 126/61 04/16/17 10:50 40 12 128/61 100 04/16/17 10:48 127/61 04/16/17 10:46 130/61 04/16/17 10:45 43 12 100 04/16/17 10:44 140/64 04/16/17 10:42 126/65 04/16/17 10:40 43 7 120/71 100 04/16/17 10:35 0 04/16/17 10:30 0 04/16/17 10:25 0 04/16/17 10:22 141/63 04/16/17 10:20 48 12 100 04/16/17 10:19 47 04/16/17 10:15 59 100 04/16/17 10:12 227/90 04/16/17 10:11 88 04/16/17 10:10 94 200/113 88 04/16/17 10:08 89 04/16/17 10:08 200/113 04/16/17 10:07 104 04/16/17 10:06 82 04/16/17 10:04 36.4 0 0 137/116 94 Ambu-Bag 100 04/16/17 10:04 97 04/16/17 10:00 100 Physical Exam GENERAL: Patient is in acute distress. CPR is in progress. HEAD: Normocephalic atraumatic EYES: Pupils are fixed and dilated. OROPHARYNX mucous membranes are moist no exudates present no erythema or edema present NECK: Supple no nuchal rigidity CHEST: Good equal expansion LUNGS: Agonal respirations CARDIAC: Normal S1 and S2 ABDOMEN: Soft RECTAL: Heme negative BACK: No bruising noted EXTREMITIES: No pain upon palpation normal muscle strength in all groups no clubbing cyanosis or edema NEURO: GCS 3. Does not respond to painful stimuli. Medical Decision & Procedures ER Provider Diagnostic Interpretation: Radiology results as stated below per my review and radiologist interpretation: CHEST ONE VIEW PORTABLE HISTORY: 61 years-old Male CHEST PAIN acute atypical chest pain with CODE BLUE. COMPARISON: Chest radiograph 09/28/2016 TECHNIQUE: Portable supine AP view of the chest FINDINGS: Endotracheal tube is present terminating 3 mm superior to the mil coursing towards the right mainstem bronchus. Cardiac silhouette is moderately enlarged. Lungs are hypoinflated with bronchovascular crowding and pulmonary vascular congestion. No pneumothorax, pleural effusion or focal airspace consolidation. The bones are grossly intact. IMPRESSION: 1. Low-lying endotracheal tube. Recommend retraction of approximately 2.5 to 3 cm. 2. Cardiomegaly with hypoinflation, bronchovascular crowding and mild pulmonary vascular congestion. The above report was generated using voice recognition software. It may contain grammatical, syntax or spelling errors. Electronically signed by: Dickson Tate M.D. 04/16/2017 10:24 AM Dictated Date/Time: 04/16/2017 10:[address] HEAD WITHOUT CONTRAST (CT) CLINICAL HISTORY: Cardiac arrest COMPARISON STUDY: 03/20/2016 TECHNIQUE: Axial CT of the brain is performed from the vertex to the skull base. IV contrast was not administered for this examination. A dose lowering technique was utilized adhering to the principles of ALARA. CT DOSE: 638.56 mGycm FINDINGS: No intra or extra-axial mass lesions are visualized. There is no CT evidence of acute cortical infarction. There is no evidence of midline shift. There is no acute hemorrhage. No calvarial fractures are visualized. There are moderate white matter hypodensities likely on a small vessel basis. There is an old right thalamic lacunar infarct. There is no evidence of pathologic ventricular dilatation. There is no evidence of acute sinusitis IMPRESSION: 1. No acute intracranial findings 2. Moderate white matter disease likely on a small vessel basis. This appears slightly progressive 3. Old right thalamic infarct 4. Given the clinical history of a cardiac arrest, if the patient's neurological status does not improve then an MRI should be considered in follow-up. Electronically signed by: Barron Alonso M.D. 04/16/2017 10:41 AM Dictated Date/Time: 04/16/2017 10:[address] ANGIOGRAM OF THE CHEST CLINICAL HISTORY: Cardiac arrest COMPARISON STUDY: Chest x-ray dated 04/16/2017 TECHNIQUE: Following the IV administration of 94 mL of Optiray-320, CT angiogram of the thorax was performed from the thoracic inlet to the lung bases utilizing the pulmonary embolus protocol. Images are reviewed in the axial, sagittal, and coronal planes. IV contrast was administered without complication. MIP imaging was performed. A dose lowering technique was utilized adhering to the principles of ALARA. CT DOSE: 497.97 mGycm FINDINGS: No pathologically enlarged axillary mediastinal or hilar lymph nodes were visualized. The ascending thoracic aorta measures 37 mm in diameter. There is mild motion artifact. There are no pulmonary artery filling defects to indicate acute pulmonary embolism. There is a small right pleural effusion There are bilateral lower lobe pulmonary airspace opacities. There is mild septal edema. There is a 6 mm right upper lobe subsolid pulmonary nodule as visualized in image #[id number]. There is a 5.5 mm groundglass pulmonary nodule within the right middle lobe as visualized on image #[id number]. There is a small amount of venous air likely iatrogenic. There is an endotracheal tube, the tip of which extends into the proximal right mainstem bronchus. IMPRESSION: 1. Study mildly compromised due to patient motion artifact. No evidence of acute pulmonary embolism 2. Endotracheal tube positioned with its tip in the proximal right mainstem bronchus 3. Cardiomegaly, interstitial edema, and small right pleural effusion 4. Dependent bibasal airspace opacities. While likely atelectatic, aspiration or a bilateral pneumonia could appear similar 5. 5.5 mm right middle lobe groundglass pulmonary nodule, and 6 mm subsolid right upper lobe pulmonary nodule. 3-[address] follow-up is recommended. Please refer to below summary of Fleischner criteria recommendations for follow-up of incidental CT nodules (Mary Rose, Guidelines for management of small pulmonary nodules detected on CT scans: A statement from the Fleischner Society, Radiology 237: [phone].) SOLID NODULES Solitary nodule size: <6 mm * low risk patients: no follow-up needed * high risk patients: optional CT at 12 months Solitary nodule size: 6-8 mm * low risk patients: follow-up at 6-12 months, then consider further follow-up at 18-24 months * high risk patients: initial follow-up CT at 6-12 months and then at 18-24 months if no change Solitary nodule size: >8 mm * either low or high risk patients - consider follow-up CT at 3 months, and/or CT-PET, and/or biopsy Multiple nodules size: <6 mm * low risk patients: no routine follow-up * high risk patients: optional CT at 12 months Multiple nodules size: 6-8 mm * low risk patients: follow-up at 3-6 months, then consider further follow-up at 18-24 months * high risk patients: follow-up at 3-6 months, then at 18-24 months if no change Multiple nodules size: >8 mm * low risk patients: follow-up at 3-6 months, then consider further follow-up at 18-24 months * high risk patients: follow-up at 3-6 months, then at 18-24 months if no change Note: newly detected indeterminate nodule in persons 35 years of age or older. * low risk patients: minimal or absent history of smoking and/or other known risk factors * high risk patients: history of smoking or of other known risk factors (e.g. first degree relative with lung cancer, or exposure to asbestos, radon, uranium) * if a nodule up to 8 mm is partly solid or is ground glass further follow-up is required after 24 months to exclude possible slow growing adenocarcinoma (OSCAR) SUBSOLID NODULES Solitary pure ground-glass nodule * nodule size <6 mm - no CT follow-up required * nodule size >=6 mm - follow-up CT at 6-12 months, then every 2 years until 5 years Solitary part-solid nodule * nodule size <6 mm - no CT follow-up required * nodule size >=6 mm - follow-up CT at 3-6 months. If unchanged, and solid component remains <6 mm, then annual follow-up for 5 years Multiple subsolid nodules * nodule size <6 mm - follow-up CT at 3-6 months, consider further follow-up at 2 and 4 years if stable * nodule size >=6 mm - follow-up CT at 3-6 months, subsequent management based on the most suspicious nodule(s) Electronically signed by: Barron Alonso M.D. 04/16/2017 10:56 AM Dictated Date/Time: 04/16/2017 10:41 AM Laboratory Results Test 04/16/17 10:10 04/16/17 10:16 04/16/17 10:22 04/16/17 11:25 Pro-B-Type Natriuretic Peptide pg/ml (0-900) Bedside Hemoglobin 9.5 g/dl (14.0-18.0) Bedside Hematocrit 28 % (42-52) Bedside Sodium 141 mEq/L (135-144) Bedside Potassium 3.9 mEq/L (3.3-5.0) Bedside Chloride 115 mEq/L (101-112) Bedside Total CO2 14 mEq/l (24-31) Bedside Blood Urea Nitrogen 40 mg/dl (7-18) Bedside Creatinine 2.5 mg/dl (0.6-1.3) Bedside Glucose (other) 212 mg/dl (70-99) Bedside Ionized Calcium (Raffy) 0.96 mmol/l (1.12-1.32) Bedside Lactic Acid Venous 3.19 mmol/L (0.90-1.70) Immature Granulocyte % (Auto) 0.6 % White Blood Count 10.57 K/uL (4.8-10.8) Red Blood Count 3.28 M/uL (4.7-6.1) Hemoglobin 9.9 g/dL (14.0-18.0) Hematocrit 30.3 % (42-52) Mean Corpuscular Volume 92.4 fL (80-100) Mean Corpuscular Hemoglobin 30.2 pg (25-34) Mean Corpuscular Hemoglobin Concent 32.7 g/dl (32-36) Platelet Count 228 K/uL (130-400) Mean Platelet Volume 10.7 fL (7.4-10.4) Neutrophils (%) (Auto) 71.9 % Lymphocytes (%) (Auto) 21.6 % Monocytes (%) (Auto) 5.3 % Eosinophils (%) (Auto) 0.4 % Basophils (%) (Auto) 0.2 % Neutrophils # (Auto) 7.61 K/uL (1.4-6.5) Lymphocytes # (Auto) 2.28 K/uL (1.2-3.4) Monocytes # (Auto) 0.56 K/uL (0.11-0.59) Eosinophils # (Auto) 0.04 K/uL (0-0.5) Basophils # (Auto) 0.02 K/uL (0-0.2) Immature Granulocyte # (Auto) 0.06 K/uL (0.00-0.02) Direct Bilirubin 0.4 mg/dl (0-0.2) Total Creatine Kinase 96 U/L (39-308) Creatine Kinase MB 0.7 ng/ml (0.5-3.6) Creatine Kinase MB Ratio 0.7 (0-3.0) Lipase 600 U/L (73-393) Labs reviewed by ED physician. Medications Administered Medications (Trade) Dose Ordered Sig/Carlin Route Start Time Stop Time Status Last Admin Dose Admin Miscellaneous (Rapid Sequence Induction Bag) 1 ea STK-MED ONCE N/A 04/16/17 10:04 04/16/17 10:05 DC 04/16/17 11:40 1 EA Vecuronium Bly (Vecuronium Bly Inj) 10 mg NOW STAT IV 04/16/17 10:13 04/16/17 10:15 DC 04/16/17 10:15 10 MG Propofol (Diprivan Iv Emulsion 100ml Vial) 1 dose UD PRN IV 04/16/17 10:15 04/16/17 13:17 DC 04/16/17 11:37 1 DOSE Potassium Chloride 10 meq/ Prmx 100 ml @ 100 mls/hr NOW STAT IV 04/16/17 10:57 04/16/17 11:56 DC 04/16/17 11:38 100 MLS/HR Daptomycin 432 mg/ Sodium Chloride 58.64 ml @ 100 mls/hr NOW STAT IV 04/16/17 11:01 04/16/17 11:36 DC 04/16/17 11:38 100 MLS/HR Sodium Chloride 1,000 ml @ 0 mls/hr Q0M ONCE IV 04/16/17 11:03 04/16/17 11:06 DC 04/16/17 11:04 999 MLS/HR Pantoprazole Sodium 80 mg/ Dextrose 120 ml @ 480 mls/hr NOW ONCE IV 04/16/17 11:30 04/16/17 11:44 DC 04/16/17 11:36 480 MLS/HR Pantoprazole Sodium 40 mg/ Dextrose 100 ml @ 20 mls/hr Q5H IV 04/16/17 11:45 04/16/17 16:44 04/16/17 11:36 20 MLS/HR Procedure Endotracheal Intubation Indication cardiac arrest. The patient was on 100% oxygen via NRB prior to the procedure. Suction, airway equipment, RSI drugs, respiratory equipment, and appropriate personnel were prepared prior to the initiation of the procedure. A time out was taken. Induction was performed with succinylcholine. After observing the clinical benefit of the medications, the airway was easily visualized utilizing a 4 GlideScope. A 7.5 size ETT tube was placed atraumatically to 24 cm using standard technique. The cuff inflated without signs of malfunction. There were bilateral breath sounds, positive colormetric change, no gastric sounds, a good capnography waveform, and post procedure pulse oximetry was 100%. Post intubation sedation and paralysis was administered using vecuronium and propofol. There were no complications. ED Course 09: A code blue was called prior to the patient's arrival in the ED. 1001: Past medical records reviewed. The patient was evaluated in room B1. A complete history and physical examination was performed. The patient was intubated. Please see procedure note above for further details. 1013: Vecuronium bromide 10 mg IV 1015: Propofol 1 dose IV PRN 1016: Magnesium sulfate 2 gm IV 1057: Potassium Chloride 10 meq 100ml @ 100 mls/hr IV, Potassium Chloride 10 meq IV 1059: Potassium Chloride 80 meq PO 1101: Daptomycin 432 mg/Sodium Chloride 58.64 ml @ 100 mls/hr IV, Levofloxacin 750 mg IV, Rocephin 1 gm IV 1103: NSS 1000 ml IV 1106: Protonix IV bolus/drip 1109: I spoke with Dr. Skinner of GI. We discussed the patient's results and treatment plan. 1115: Octreotide Acetate 500 mcg/Sodium Chloride 105 ml @ 10 mls/hr IV, Octreotide Acetate 100 mcg 10 ml @ 3 mls/min IV, Ultram 50 mg NG PRN, Demerol 25 mg IV - PRN , Buspar 60 mg NG PRN 1123: I spoke with Dr. Saldaña. We discussed the patient's case. The patient will be evaluated by the [facility] for further management. 1130: Pantoprazole Sodium 80 mg/Dextrose 120 ml @ 480 mls/hr IV 1131: I spoke with Dr. Tobin, the tool lapper hand. We discussed the patient's case and the patient will be moved to the ICU for further management. 1145: Pantoprazole Sodium 40 mg/Dextrose 100 ml @ 20 mls/hr IV 1148: The patient coded again. A code blue was called in the ED. Compressions were performed. A pulse returned. The patient was immediately taken to the ICU for further care. Medical Decision Differential diagnosis: Etiologies such as cardiac ischemia, aortic dissection, pulmonary embolism, pneumonia, pneumothorax, musculoskeletal, infections, pericarditis, myocarditis , esophageal rupture, gastrointestinal, as well as others were entertained. This is a 61-year-old male who presents emergency department complaining of cardiac arrest. Upon arrival to emergency department the patient is in cardiac arrest and CPR is in progress. He had compressions for 5 minutes however had spontaneous return of circulation after epinephrine. The patient was then intubated as above. The patient appeared to be anemic according to blood work and after NG tube was placed a large amount of blood was aspirated out of the stomach. Based on this finding I was concerned that the patient had a GI bleed and started him on a Protonix bolus and drip along with a octreotide bolus and drip. In addition the patient also appears to have pneumonia on chest x-ray therefore he was pancultured and started on antibiotics. Repeat hemoglobin actually revealed the patient's hemoglobin a be stable. The patient again code in the emergency department however had a spontaneous return of circulation after receiving epi-. I did discuss the case with both gastroenterology as well as the hospitalist as well as the tool lapper hand service. The patient was transferred to the ICU. Medication Reconcilliation Current Medication List: was personally reviewed by me Consults Time Called: 1104 Consulting Physician: Dr. Skinner Returned Call: [phone] Skinner of GI. We discussed the patient's results and treatment plan. Additional Consults: Time Called: 1120 Consulted Physician: Dr. Saldaña Returned Call: [phone] Additional Comments: I spoke with Dr. Saldaña. We discussed the patient's case. The patient will be evaluated by the [facility] for further management. Time Called: 1120 Consulted Physician: Dr. Tobin Returned Call: [phone] Additional Comments: I spoke with Dr. Tobin, the tool lapper hand. We discussed the patient's case and the patient will be moved to the ICU for further management. Impression Primary Impression: GI bleed Additional Impression: Cardiac arrest Critical Care I have personally spent greater than 120 minutes of critical care time in the direct management of this patient. This includes bedside care, interpretation of diagnostic studies, and testing, discussion with consultants, patient, and family members, and other required patient management activities. This 120 minutes is in excess of all separately billable procedures. Scribe Attestation The scribe's documentation has been prepared under my direction and personally reviewed by me in its entirety. I confirm that the note above accurately reflects all work, treatment, procedures, and medical decision making performed by me. Departure Information Dispostion Being Evaluated By Hospitalist Referrals Mike SIMMONS (PCP) Problem Qualifiers Primary Impression: GI bleed GI bleed type/associated pathology: unspecified gastrointestinal hemorrhage type Qualified Codes: K92.2 - Gastrointestinal hemorrhage, unspecified
[2017-04-16 10:35] LABS: ISTAT CREATININE 2.5 mg/dl (0.6-1.3); ISTAT HEMOGLOBIN 9.5 g/dl (14.0-18.0); ISTAT IONIZED CALCIUM 0.96 mmol/l (1.12-1.32)
--- NOTE | 2017-04-16 10:42 | DIAGNOSTIC IMAGING REPORT ---
CT HEAD WITHOUT CONTRAST (CT) CLINICAL HISTORY: Cardiac arrest COMPARISON STUDY: 03/20/2016 TECHNIQUE: Axial CT of the brain is performed from the vertex to the skull base. IV contrast was not administered for this examination. A dose lowering technique was utilized adhering to the principles of ALARA. CT DOSE: 638.56 mGycm FINDINGS: No intra or extra-axial mass lesions are visualized. There is no CT evidence of acute cortical infarction. There is no evidence of midline shift. There is no acute hemorrhage. No calvarial fractures are visualized. There are moderate white matter hypodensities likely on a small vessel basis. There is an old right thalamic lacunar infarct. There is no evidence of pathologic ventricular dilatation. There is no evidence of acute sinusitis IMPRESSION: 1. No acute intracranial findings 2. Moderate white matter disease likely on a small vessel basis. This appears slightly progressive 3. Old right thalamic infarct 4. Given the clinical history of a cardiac arrest, if the patient's neurological status does not improve then an MRI should be considered in follow-up. Electronically signed by: Barron Alonso M.D. 04/16/2017 10:41 AM Dictated Date/Time: 04/16/2017 10:39 AM
[2017-04-16] MEDS ORDERED: POTASSIUM CHLORIDE 10 MEQ / 100ML WTR IV STA (10:57)
[2017-04-16] MEDS ORDERED: POTASSIUM CHLR 10 MEQ / WTR 10 MEQ in PREMIXED WATER 100 ML IV STA (10:57)
--- NOTE | 2017-04-16 10:58 | DIAGNOSTIC IMAGING REPORT ---
CT ANGIOGRAM OF THE CHEST CLINICAL HISTORY: Cardiac arrest COMPARISON STUDY: Chest x-ray dated 04/16/2017 TECHNIQUE: Following the IV administration of 94 mL of Optiray-320, CT angiogram of the thorax was performed from the thoracic inlet to the lung bases utilizing the pulmonary embolus protocol. Images are reviewed in the axial, sagittal, and coronal planes. IV contrast was administered without complication. MIP imaging was performed. A dose lowering technique was utilized adhering to the principles of ALARA. CT DOSE: 497.97 mGycm FINDINGS: No pathologically enlarged axillary mediastinal or hilar lymph nodes were visualized. The ascending thoracic aorta measures 37 mm in diameter. There is mild motion artifact. There are no pulmonary artery filling defects to indicate acute pulmonary embolism. There is a small right pleural effusion There are bilateral lower lobe pulmonary airspace opacities. There is mild septal edema. There is a 6 mm right upper lobe subsolid pulmonary nodule as visualized in image #[id number]. There is a 5.5 mm groundglass pulmonary nodule within the right middle lobe as visualized on image #[id number]. There is a small amount of venous air likely iatrogenic. There is an endotracheal tube, the tip of which extends into the proximal right mainstem bronchus. IMPRESSION: 1. Study mildly compromised due to patient motion artifact. No evidence of acute pulmonary embolism 2. Endotracheal tube positioned with its tip in the proximal right mainstem bronchus 3. Cardiomegaly, interstitial edema, and small right pleural effusion 4. Dependent bibasal airspace opacities. While likely atelectatic, aspiration or a bilateral pneumonia could appear similar 5. 5.5 mm right middle lobe groundglass pulmonary nodule, and 6 mm subsolid right upper lobe pulmonary nodule. 3-[address] follow-up is recommended. Please refer to below summary of Fleischner criteria recommendations for follow-up of incidental CT nodules (Mary Rose, Guidelines for management of small pulmonary nodules detected on CT scans: A statement from the Fleischner Society, Radiology 237: [phone].) SOLID NODULES Solitary nodule size: <6 mm * low risk patients: no follow-up needed * high risk patients: optional CT at 12 months Solitary nodule size: 6-8 mm * low risk patients: follow-up at 6-12 months, then consider further follow-up at 18-24 months * high risk patients: initial follow-up CT at 6-12 months and then at 18-24 months if no change Solitary nodule size: >8 mm * either low or high risk patients - consider follow-up CT at 3 months, and/or CT-PET, and/or biopsy Multiple nodules size: <6 mm * low risk patients: no routine follow-up * high risk patients: optional CT at 12 months Multiple nodules size: 6-8 mm * low risk patients: follow-up at 3-6 months, then consider further follow-up at 18-24 months * high risk patients: follow-up at 3-6 months, then at 18-24 months if no change Multiple nodules size: >8 mm * low risk patients: follow-up at 3-6 months, then consider further follow-up at 18-24 months * high risk patients: follow-up at 3-6 months, then at 18-24 months if no change Note: newly detected indeterminate nodule in persons 35 years of age or older. * low risk patients: minimal or absent history of smoking and/or other known risk factors * high risk patients: history of smoking or of other known risk factors (e.g. first degree relative with lung cancer, or exposure to asbestos, radon, uranium) * if a nodule up to 8 mm is partly solid or is ground glass further follow-up is required after 24 months to exclude possible slow growing adenocarcinoma (OSCAR) SUBSOLID NODULES Solitary pure ground-glass nodule * nodule size <6 mm - no CT follow-up required * nodule size >=6 mm - follow-up CT at 6-12 months, then every 2 years until 5 years Solitary part-solid nodule * nodule size <6 mm - no CT follow-up required * nodule size >=6 mm - follow-up CT at 3-6 months. If unchanged, and solid component remains <6 mm, then annual follow-up for 5 years Multiple subsolid nodules * nodule size <6 mm - follow-up CT at 3-6 months, consider further follow-up at 2 and 4 years if stable * nodule size >=6 mm - follow-up CT at 3-6 months, subsequent management based on the most suspicious nodule(s) Electronically signed by: Barron Alonso M.D. 04/16/2017 10:56 AM Dictated Date/Time: 04/16/2017 10:41 AM
[2017-04-16] MEDS ORDERED: POTASSIUM CHLORIDE 20 MEQ/15 ML UDC PO STA (10:59)
[2017-04-16] MEDS ORDERED: DAPTOMYCIN IV STA (11:01)
[2017-04-16] MEDS ORDERED: LEVAQUIN 750MG / 150ML D5W IV STA (11:01)
[2017-04-16] MEDS ORDERED: CEFTRIAXONE SOD INJ 1 GM ADDVIAL IV STA (11:01)
[2017-04-16] MEDS ORDERED: SODIUM CHLORIDE 0.9% IV STA (11:01)
[2017-04-16] MEDS ORDERED: SODIUM CHLORIDE 0.9% 1000ML 1,000 ML IV ONE (11:03)
[2017-04-16] MEDS ORDERED: MEPERIDINE HCL 25 MG/ML CARP IV PRN (11:15)
[2017-04-16] MEDS ORDERED: BusPIRone 15 MG TAB NG PRN (11:15)
[2017-04-16] MEDS ORDERED: OCTREOTIDE ACETATE INJ 500 MCG in NSS 100ML IV ONE (11:15)
[2017-04-16] MEDS ORDERED: OCTREOTIDE ACETATE INJ 100 MCG in SYRINGE 9 ML IV ONE (11:15)
[2017-04-16] MEDS ORDERED: TRAMADOL HCL 50 MG TAB NG PRN (11:15)
[2017-04-16] MEDS ORDERED: PANTOprazole INJ 80 MG in DEXTROSE 5% 100ML IV ONE (11:30)
[2017-04-16 11:38] LABS: BASO % 0.2 %; BASO ABS # 0.02 K/uL (0-0.2); COMPLETE YES; EOS % 0.4 %; HEMATOCRIT 30.3 % (42-52); IG% 0.6 %; LYMPH % 21.6 %; LYMPH ABS # 2.28 K/uL (1.2-3.4); MEAN CELL VOLUME 92.4 fL (80-100); MEAN CORPUSCULAR HEMOGLOBIN 30.2 pg (25-34); MEAN CORPUSCULAR HGB CONC 32.7 g/dl (32-36); MEAN PLATELET VOLUME 10.7 fL (7.4-10.4); MONO % 5.3 %; NEUT % 71.9 %; PLATELET COUNT 228 K/uL (130-400); RED BLOOD COUNT 3.28 M/uL (4.7-6.1); WHITE BLOOD COUNT 10.57 K/uL (4.8-10.8)
[2017-04-16] MEDS ORDERED: PANTOprazole INJ 40 MG in DEXTROSE 5% 100ML IV SCH (11:45)
[2017-04-16 11:56] LABS: ALT/SGPT 122 U/L (12-78); AST/SGOT 166 U/L (15-37); BLOOD UREA NITROGEN 55 mg/dl (7-18); BUN/CREATININE RATIO 17.2 (10-20); CALCIUM 7.4 mg/dl (8.5-10.1); CARBON DIOXIDE 18 mmol/L (21-32); CHLORIDE 107 mmol/L (98-107); GLUCOSE 263 mg/dl (70-99); POTASSIUM 5.2 mmol/L (3.5-5.1); SODIUM 133 mmol/L (136-145)
[2017-04-16 12:01] LABS: ALKALINE PHOSPHATASE 93 U/L (45-117); CKMB/CK RATIO 0.7 (0-3.0)
[2017-04-16] MEDS ORDERED: AZTREONAM IV 1,000 MG in DEXTROSE 5% 100ML 100 ML IV ONE (12:45)
[2017-04-16 13:33] LABS: COMPLETE YES
--- NOTE | 2017-04-16 14:02 | History and Physical ---
History & Physical Date & Time of Service: Apr 16, 2017 at 13:18 Chief Complaint: Cardiac Arrest Primary Care Physician: Mike SIMMONS History of Present Illness Source: hospital records 61 y/o M who was admitted after going into asystole en route from [facility] to [facility]. Compressions were started in the ambulance and there were multiple codes called during pt's time in the ED. He was given epi and started on a cooling protocol. Apparently pt had been complaining of SOB and b/l LE swelling for two days [employer] per ED physician note. Pt is currently intubated and sedated, therefore unable to gather further information. Unable to obtain full ROS due to above. Past Medical/Surgical History Medical Problems: (1) CKD (chronic kidney disease), stage III Status: Chronic (2) CVA (cerebral vascular accident) Status: Chronic (3) DM type 2 (diabetes mellitus, type 2) Status: Chronic (4) G-6-PD deficiency Status: Chronic (5) HIV (human immunodeficiency virus infection) Status: Chronic (6) HTN (hypertension) Status: Chronic (7) [id number]-uu-[id number] transgender person Status: Chronic Family History No pertinent family history stated Unable to obtain Social History Smoking Status: Current Every Day Smoker Alcohol Use: none Drug Use: none Housing status: other Occupational Status: unemployed Multi-Drug Resistant Organisms History of MDRO: No Allergies Coded Allergies: Penicillins (Verified Allergy, Intermediate, UNKNOWN, 04/16/17) Home Medications Scheduled Amlodipine Besylate (Norvasc), 1 TAB PO DAILY Aspirin (Aspirin EC Low Dose), 81 MG PO QAM Atorvastatin (Atorvastatin Calcium), 40 MG PO QAM Bumetanide (Bumex), 1 MG PO DIRECTED Darunavir Ethanolate (Prezista), 800 MG PO HS Xrahyuyrihhg-Hbqyauavfc-Uhsmpb (Genvoya [id number] mg), 1 TAB PO DAILY Estradiol (Estradiol), 1 MG PO DAILY Estradiol (Climara), 0.1 MG TOP DAILY Finasteride (Proscar), 5 MG PO DAILY Insulin Human Regular (Humulin R), 1 DOSE SQ SLIDING SCALE Latanoprost 0.005% Oph (Xalatan 0.005% Oph), 1 DROP OPB HS Metoprolol Tartrate (Lopressor) (Lopressor), 50 MG PO BID Multivitamin (Multivitamin), 1 TAB PO DAILY Potassium Chloride (Micro-K Ext Rel), 10 MEQ PO DAILY Scheduled PRN Glucose (Bd Glucose), 4 MG PO QID PRN for PRN Ondansetron Hcl (Zofran), 8 MG PO BID PRN for Nausea Physical Exam Vital Signs Date Time Temp Pulse Resp B/P (MAP) Pulse Ox O2 Delivery O2 Flow Rate FiO2 04/16/17 11:55 77 12 167/70 96 04/16/17 11:50 77 12 04/16/17 11:39 121/57 04/16/17 11:36 122/59 04/16/17 11:35 43 12 100 04/16/17 11:34 123/58 04/16/17 11:32 122/59 04/16/17 11:30 45 12 120/59 100 04/16/17 11:28 123/61 04/16/17 11:26 118/60 04/16/17 11:25 46 12 100 04/16/17 11:24 123/61 04/16/17 11:20 48 12 100 04/16/17 11:19 124/55 04/16/17 11:16 125/61 04/16/17 11:15 48 12 100 04/16/17 11:14 125/62 04/16/17 11:12 132/64 04/16/17 11:10 50 12 131/60 100 04/16/17 11:05 55 12 100 Mechanical Ventilator 100 04/16/17 11:04 149/68 04/16/17 11:02 177/75 04/16/17 11:01 223/91 04/16/17 11:00 88 12 100 04/16/17 10:58 122/85 04/16/17 10:56 117/62 04/16/17 10:55 40 12 130/63 100 04/16/17 10:54 129/59 04/16/17 10:52 126/61 04/16/17 10:50 40 12 128/61 100 04/16/17 10:48 127/61 04/16/17 10:46 130/61 04/16/17 10:45 43 12 100 04/16/17 10:44 140/64 04/16/17 10:42 126/65 04/16/17 10:40 43 7 120/71 100 04/16/17 10:35 0 04/16/17 10:30 0 04/16/17 10:25 0 04/16/17 10:22 141/63 04/16/17 10:20 48 12 100 04/16/17 10:19 47 04/16/17 10:15 59 100 04/16/17 10:12 227/90 04/16/17 10:11 88 04/16/17 10:10 94 200/113 88 04/16/17 10:08 89 04/16/17 10:08 200/113 04/16/17 10:07 104 04/16/17 10:06 82 04/16/17 10:04 36.4 0 0 137/116 94 Ambu-Bag 100 04/16/17 10:04 97 04/16/17 10:00 100 General Appearance: WD/WN, no apparent distress Head: normocephalic, atraumatic Eyes: normal inspection Respiratory/Chest: no respiratory distress, + pertinent finding (coarse lung sounds on vent) Cardiovascular: no edema, + bradycardia Abdomen/GI: non tender, soft Extremities/Musculoskelatal: no calf tenderness, no pedal edema Neurologic/Psych: + pertinent finding (intubated and sedated, no response to verbal or physical stimuli) Skin: normal color, warm/dry Diagnostics Laboratory Results Results Past 24 Hours Test 04/16/17 10:10 04/16/17 10:14 04/16/17 10:16 04/16/17 10:22 Range/Units White Blood Count 7.88 4.8-10.8 K/uL Red Blood Count 2.11 4.7-6.1 M/uL Hemoglobin 6.5 14.0-18.0 g/dL Hematocrit 19.4 42-52 % Mean Corpuscular Volume 91.9 80-100 fL Mean Corpuscular Hemoglobin 30.8 25-34 pg Mean Corpuscular Hemoglobin Concent 33.5 32-36 g/dl Platelet Count 144 130-400 K/uL Mean Platelet Volume 10.8 7.4-10.4 fL RDW Standard Deviation 38.6 36.4-46.3 fL RDW Coefficient of Variation 11.6 11.5-14.5 % Sodium Level 136-145 mmol/L Potassium Level 3.5-5.1 mmol/L Chloride Level 98-107 mmol/L Carbon Dioxide Level 21-32 mmol/L Anion Gap 18.0 16-25 mmol/L Blood Urea Nitrogen 7-18 mg/dl Creatinine 0.60-1.40 mg/dl Estimated GFR () Estimated GFR (Non- BUN/Creatinine Ratio 10-20 Random Glucose 70-99 mg/dl Calcium Level 8.5-10.1 mg/dl Total Bilirubin 0.2-1 mg/dl Direct Bilirubin 0-0.2 mg/dl Aspartate Amino Transf (AST/SGOT) 15-37 U/L Alanine Aminotransferase (ALT/SGPT) 12-78 U/L Alkaline Phosphatase 45-117 U/L Total Creatine Kinase 39-308 U/L Creatine Kinase MB 0.5-3.6 ng/ml Creatine Kinase MB Ratio 0-3.0 Troponin I 0-0.045 ng/ml Pro-B-Type Natriuretic Peptide 0-900 pg/ml Total Protein 6.4-8.2 gm/dl Albumin 3.4-5.0 gm/dl Lipase 73-393 U/L Bedside Glucose 215 70-99 mg/dl Bedside Hemoglobin 9.5 14.0-18.0 g/dl Bedside Hematocrit 28 42-52 % Bedside Sodium 141 135-144 mEq/L Bedside Potassium 3.9 3.3-5.0 mEq/L Bedside Chloride 115 101-112 mEq/L Bedside Total CO2 14 24-31 mEq/l Bedside Blood Urea Nitrogen 40 7-18 mg/dl Bedside Creatinine 2.5 0.6-1.3 mg/dl Bedside Glucose (other) 212 70-99 mg/dl Bedside Ionized Calcium (Raffy) 0.96 1.12-1.32 mmol/l Bedside Lactic Acid Venous 3.19 0.90-1.70 mmol/L Test 04/16/17 11:25 04/16/17 12:37 04/16/17 12:58 Range/Units White Blood Count 10.57 4.8-10.8 K/uL Red Blood Count 3.28 4.7-6.1 M/uL Hemoglobin 9.9 14.0-18.0 g/dL Hematocrit 30.3 42-52 % Mean Corpuscular Volume 92.4 80-100 fL Mean Corpuscular Hemoglobin 30.2 25-34 pg Mean Corpuscular Hemoglobin Concent 32.7 32-36 g/dl Platelet Count 228 130-400 K/uL Mean Platelet Volume 10.7 7.4-10.4 fL Neutrophils (%) (Auto) 71.9 % Lymphocytes (%) (Auto) 21.6 % Monocytes (%) (Auto) 5.3 % Eosinophils (%) (Auto) 0.4 % Basophils (%) (Auto) 0.2 % Neutrophils # (Auto) 7.61 1.4-6.5 K/uL Lymphocytes # (Auto) 2.28 1.2-3.4 K/uL Monocytes # (Auto) 0.56 0.11-0.59 K/uL Eosinophils # (Auto) 0.04 0-0.5 K/uL Basophils # (Auto) 0.02 0-0.2 K/uL RDW Standard Deviation 38.7 36.4-46.3 fL RDW Coefficient of Variation 11.5 11.5-14.5 % Immature Granulocyte % (Auto) 0.6 % Immature Granulocyte # (Auto) 0.06 0.00-0.02 K/uL Sodium Level 133 136-145 mmol/L Potassium Level 5.2 3.5-5.1 mmol/L Chloride Level 107 98-107 mmol/L Carbon Dioxide Level 18 21-32 mmol/L Anion Gap 8.0 3-11 mmol/L Blood Urea Nitrogen 55 7-18 mg/dl Creatinine 3.20 0.60-1.40 mg/dl Estimated GFR () 22.7 Estimated GFR (Non- 19.5 BUN/Creatinine Ratio 17.2 10-20 Random Glucose 263 70-99 mg/dl Calcium Level 7.4 8.5-10.1 mg/dl Total Bilirubin 0.7 0.2-1 mg/dl Direct Bilirubin 0.4 0-0.2 mg/dl Aspartate Amino Transf (AST/SGOT) 166 15-37 U/L Alanine Aminotransferase (ALT/SGPT) 122 12-78 U/L Alkaline Phosphatase 93 45-117 U/L Total Creatine Kinase 96 39-308 U/L Creatine Kinase MB 0.7 0.5-3.6 ng/ml Creatine Kinase MB Ratio 0.7 0-3.0 Troponin I 0.028 0-0.045 ng/ml Total Protein 6.4 6.4-8.2 gm/dl Albumin 2.7 3.4-5.0 gm/dl Lipase 600 73-393 U/L Stool Occult Blood NEGATIVE NEGATIVE Microbiology Results 04/16/17 Blood Culture, Ordered Pending 04/16/17 Blood Culture, Ordered Pending 04/16/17 MRSA DNA Surveillance Screen, Received Pending Diagnostic Radiology CTA: IMPRESSION: 1. Study mildly compromised due to patient motion artifact. No evidence of acute pulmonary embolism 2. Endotracheal tube positioned with its tip in the proximal right mainstem bronchus 3. Cardiomegaly, interstitial edema, and small right pleural effusion 4. Dependent bibasal airspace opacities. While likely atelectatic, aspiration or a bilateral pneumonia could appear similar 5. 5.5 mm right middle lobe groundglass pulmonary nodule, and 6 mm subsolid right upper lobe pulmonary nodule. 3-[address] follow-up is recommended. CT head neg for acute Impression Assessment and Plan 61 y/o M who was admitted to the ICU s/p asystolic and cardiac arrest with multiple rounds of compressions. Cardiac arrest: intubated and sedated Unclear etiology, however possible GIB given Hb on arrival PNA noted on CT chest Neg for PE Abx as per ICU Planning for lines CT head neg for acute Initial trop neg WBC WNL, blood cx pending Anemia: awaiting transfusion GI is aware of pt H/H serials Hemoccult pending ARF: in the setting of cardiac arrest Pt with hx of CKD III, baseline cr is around 1.8 Monitor Electrolyte WNL Elevated lipase: question of pancreatitis HIV: tx as per ICU team Hx of transgender with hormone use Other: Code status unknown NPO Intubated and sedated DVT proph as per ICU Level of Care Critical Care VTE Prophylaxis VTE Risk Assessment Done? Y/N: Yes Risk Level: Low
--- NOTE | 2017-04-16 14:04 | DIAGNOSTIC IMAGING REPORT ---
CHEST ONE VIEW PORTABLE CLINICAL HISTORY: Right central line/pacemaker placement. COMPARISON STUDY: Chest radiograph and chest CT performed earlier today. FINDINGS: The tip of the endotracheal tube is 3.1 cm above the mil. Tip of nasogastric tube is below lower aspect of this image but at least within the proximal stomach. Note is made of interval placement of a right internal jugular central line. Transvenous pacer lead is within the right atrium. There is no pneumothorax. There are trace bilateral pleural effusions. Bibasilar opacities persist. Interstitial thickening suggests pulmonary edema. The findings have slightly progressed. IMPRESSION: 1. Interval placement of a right internal jugular central line with transvenous pacer. Lead tip is within the right atrium. No pneumothorax. 2. Satisfactory positioning of the endotracheal tube. 3. Slight progression of pulmonary edema and bibasilar opacities. Electronically signed by: Gustavo Kathleen M.D. 04/16/2017 2:03 PM Dictated Date/Time: 04/16/2017 1:58 PM
[2017-04-16 14:11] LABS: HEMATOCRIT 29.9 % (42-52); MEAN CELL VOLUME 91.4 fL (80-100); MEAN CORPUSCULAR HEMOGLOBIN 31.8 pg (25-34); MEAN PLATELET VOLUME 11.2 fL (7.4-10.4); PLATELET COUNT 232 K/uL (130-400); RED BLOOD COUNT 3.27 M/uL (4.7-6.1); WHITE BLOOD COUNT 16.42 K/uL (4.8-10.8)
[2017-04-16 14:13] LABS: MEAN CORPUSCULAR HGB CONC 34.8 g/dl (32-36)
[2017-04-16 14:21] LABS: PARTIAL THROMBOPLASTIN RATIO 0.8; PROTHROMBIN TIME (PATIENT) 11.1 SECONDS (9.0-12.0)
--- NOTE | 2017-04-16 14:25 | Gastrointestinal Consultation ---
Gastrointestinal Consultation Date of Consultation: Apr 16, 2017 History of Present Illness Patient is a 61 year old male whom we were asked to see today for questionable GI bleed after he presented to the emergency room from a correctional institution today dyspnea and profound shortness of breath. Upon transport via EMS into the emergency room he was known to lose his pulse. He was resuscitated with 1 round of epinephrine the rhythm at that time was reportedly asystole. He was intubated in the emergency room and the placements of an oral gastric tube that was noted to have about 10-20 mL of red blood. Hemoglobin was noted to be less than 7, however repeat hemoglobin has been 9.9. There is no history of GI bleeding prior to presenting to the emergency room or previously. In review of his imaging and labs it does not appear that he has overt evidence of chronic liver disease and/or portal hypertension after reviewing the CT scan with radiology. Since his admission his he has had coded with bradycardic code another 2 times with flushing of his OG tube that does not reveal any evidence of bleeding. He' s had no bowel movements, and no melena. He has required the placement of transvenous pacing wires to help augment his heart rate. He cannot provide any history and/or review of systems given his status of intubation. Past Medical/Surgical History Medical Problems: (1) Acute renal failure Status: Acute (2) Bradycardia Status: Acute (3) Cardiopulmonary arrest Status: Acute (4) GI bleed Status: Acute (5) Heart block Status: Acute (6) Renal failure Status: Acute Family History No pertinent family history stated Social History Smoking Status: Current Every Day Smoker Drug Use: none Housing Status: other Occupation Status: unemployed Allergies Coded Allergies: Penicillins (Verified Allergy, Intermediate, UNKNOWN, 04/16/17) Current Medications Home Meds and Scripts Medications Dose Route/Sig Max Daily Dose Days Date Category Dose Instructions Climara (Estradiol) 0.1 Mg/24 Hr Dis 0.1 Mg TOP DAILY 04/16/17 Reported Multivitamin (Multivitamins) Tab 1 Tab PO DAILY 04/16/17 Reported Micro-K Ext Rel (Potassium Chloride) 10 Meq Capcr 10 Meq PO DAILY 04/16/17 Reported Zofran (Ondansetron HCl) 8 Mg Tab 8 Mg PO BID PRN 04/16/17 Reported Lopressor (Metoprolol Tartrate) 50 Mg Tab 50 Mg PO BID 04/16/17 Reported Bd Glucose (Glucose) 1 Tab Chew 4 Mg PO QID PRN 04/16/17 Reported Bumex (Bumetanide) 1 Mg Tab 1 Mg PO DIRECTED 04/16/17 Reported Norvasc (Amlodipine Besylate) 10 Mg Tab 1 Tab PO DAILY 30 09/30/16 Rx Humulin R (Insulin Human Regular) 100 Units/Ml Susp 1 Dose SQ SLIDING SCALE 09/28/16 Reported 201-250= 2 UNITS 251-300= 4 UNITS 301-350= 6 UNITS 351-400= 8 UNITS 401-450= 10 UNITS 451-500= 12 UNITS Genvoya [phone] mg (Yeqdsohqvivu-Pxmguzedsm-Rwuuhw) 1 Tab Tab 1 Tab PO DAILY 09/28/16 Reported Estradiol 2 Mg Tab 1 Mg PO DAILY 90 03/20/16 Reported Aspirin EC Low Dose (Aspirin) 81 Mg Ectab 81 Mg PO QAM 30 01/08/16 Rx Atorvastatin Calcium (Atorvastatin) 40 Mg Tab 40 Mg PO QAM 30 01/08/16 Rx Prezista (Darunavir Ethanolate) 800 Mg Tab 800 Mg PO HS 01/06/16 Reported Xalatan 0.005% Oph (Latanoprost) Soln 1 Drop OPB HS 01/06/16 Reported Proscar (Finasteride) 5 Mg Tab 5 Mg PO DAILY 01/06/16 Reported Physical Exam Date Time Temp Pulse Resp B/P (MAP) Pulse Ox O2 Delivery O2 Flow Rate FiO2 04/16/17 11:55 77 12 167/70 96 04/16/17 11:50 77 12 04/16/17 11:39 121/57 04/16/17 11:36 122/59 04/16/17 11:35 43 12 100 04/16/17 11:34 123/58 04/16/17 11:32 122/59 04/16/17 11:30 45 12 120/59 100 04/16/17 11:28 123/61 04/16/17 11:26 118/60 04/16/17 11:25 46 12 100 04/16/17 11:24 123/61 04/16/17 11:20 48 12 100 04/16/17 11:19 124/55 04/16/17 11:16 125/61 04/16/17 11:15 48 12 100 04/16/17 11:14 125/62 04/16/17 11:12 132/64 04/16/17 11:10 50 12 131/60 100 04/16/17 11:05 55 12 100 Mechanical Ventilator 100 04/16/17 11:04 149/68 04/16/17 11:02 177/75 04/16/17 11:01 223/91 04/16/17 11:00 88 12 100 04/16/17 10:58 122/85 04/16/17 10:56 117/62 04/16/17 10:55 40 12 130/63 100 04/16/17 10:54 129/59 04/16/17 10:52 126/61 04/16/17 10:50 40 12 128/61 100 04/16/17 10:48 127/61 04/16/17 10:46 130/61 04/16/17 10:45 43 12 100 04/16/17 10:44 140/64 04/16/17 10:42 126/65 04/16/17 10:40 43 7 120/71 100 04/16/17 10:35 0 04/16/17 10:30 0 04/16/17 10:25 0 04/16/17 10:22 141/63 04/16/17 10:20 48 12 100 04/16/17 10:19 47 04/16/17 10:15 59 100 04/16/17 10:12 227/90 04/16/17 10:11 88 04/16/17 10:10 94 200/113 88 04/16/17 10:08 89 04/16/17 10:08 200/113 04/16/17 10:07 104 04/16/17 10:06 82 04/16/17 10:04 36.4 0 0 137/116 94 Ambu-Bag 100 04/16/17 10:04 97 04/16/17 10:00 100 General Appearance: WD/WN, + pertinent finding (intubated and sedated) Eyes: normal inspection ENT: normal ENT inspection Respiratory/Chest: + pertinent finding (coarse rhonchi bilateral bases right greater than left. Diminished sounds left) Cardiovascular: regular rate, rhythm, no edema, + normal peripheral pulses ( bradycardic no murmur) Abdomen: normal bowel sounds, non tender, soft, no organomegaly, + pertinent finding (no cutaneous findings of liver disease) Extremities: normal range of motion Laboratory Results Last 24 Hours Test 04/16/17 10:10 04/16/17 10:14 04/16/17 10:16 04/16/17 10:22 White Blood Count K/uL Red Blood Count M/uL Hemoglobin g/dL Hematocrit % Mean Corpuscular Volume fL Mean Corpuscular Hemoglobin pg Mean Corpuscular Hemoglobin Concent g/dl Platelet Count K/uL Mean Platelet Volume fL RDW Standard Deviation fL RDW Coefficient of Variation % Sodium Level mmol/L Potassium Level mmol/L Chloride Level mmol/L Carbon Dioxide Level mmol/L Anion Gap mmol/L 18.0 mmol/L Blood Urea Nitrogen mg/dl Creatinine mg/dl Estimated GFR () Estimated GFR (Non- BUN/Creatinine Ratio Random Glucose mg/dl Calcium Level mg/dl Total Bilirubin mg/dl Direct Bilirubin mg/dl Aspartate Amino Transf (AST/SGOT) U/L Alanine Aminotransferase (ALT/SGPT) U/L Alkaline Phosphatase U/L Total Creatine Kinase U/L Creatine Kinase MB ng/ml Creatine Kinase MB Ratio Troponin I ng/ml Pro-B-Type Natriuretic Peptide pg/ml Total Protein gm/dl Albumin gm/dl Lipase U/L Bedside Glucose 215 mg/dl Bedside Hemoglobin 9.5 g/dl Bedside Hematocrit 28 % Bedside Sodium 141 mEq/L Bedside Potassium 3.9 mEq/L Bedside Chloride 115 mEq/L Bedside Total CO2 14 mEq/l Bedside Blood Urea Nitrogen 40 mg/dl Bedside Creatinine 2.5 mg/dl Bedside Glucose (other) 212 mg/dl Bedside Ionized Calcium (Raffy) 0.96 mmol/l Bedside Lactic Acid Venous 3.19 mmol/L Test 04/16/17 11:25 04/16/17 12:37 04/16/17 13:50 04/16/17 14:01 White Blood Count 10.57 K/uL Red Blood Count 3.28 M/uL Hemoglobin 9.9 g/dL Hematocrit 30.3 % Mean Corpuscular Volume 92.4 fL Mean Corpuscular Hemoglobin 30.2 pg Mean Corpuscular Hemoglobin Concent 32.7 g/dl Platelet Count 228 K/uL Mean Platelet Volume 10.7 fL Neutrophils (%) (Auto) 71.9 % Lymphocytes (%) (Auto) 21.6 % Monocytes (%) (Auto) 5.3 % Eosinophils (%) (Auto) 0.4 % Basophils (%) (Auto) 0.2 % Neutrophils # (Auto) 7.61 K/uL Lymphocytes # (Auto) 2.28 K/uL Monocytes # (Auto) 0.56 K/uL Eosinophils # (Auto) 0.04 K/uL Basophils # (Auto) 0.02 K/uL RDW Standard Deviation 38.7 fL RDW Coefficient of Variation 11.5 % Immature Granulocyte % (Auto) 0.6 % Immature Granulocyte # (Auto) 0.06 K/uL Sodium Level 133 mmol/L Potassium Level 5.2 mmol/L Chloride Level 107 mmol/L Carbon Dioxide Level 18 mmol/L Anion Gap 8.0 mmol/L Blood Urea Nitrogen 55 mg/dl Creatinine 3.20 mg/dl Estimated GFR () 22.7 Estimated GFR (Non- 19.5 BUN/Creatinine Ratio 17.2 Random Glucose 263 mg/dl Calcium Level 7.4 mg/dl Total Bilirubin 0.7 mg/dl Direct Bilirubin 0.4 mg/dl Aspartate Amino Transf (AST/SGOT) 166 U/L Alanine Aminotransferase (ALT/SGPT) 122 U/L Alkaline Phosphatase 93 U/L Total Creatine Kinase 96 U/L Creatine Kinase MB 0.7 ng/ml Creatine Kinase MB Ratio 0.7 Troponin I 0.028 ng/ml Total Protein 6.4 gm/dl Albumin 2.7 gm/dl Lipase 600 U/L Stool Occult Blood NEGATIVE Impression Patient is a 61 year old male presenting with cardiopulmonary arrest of an unknown etiology servings of GI bleed. He is no evidence of any chronic liver disease and/or pre-hospital presentation of GI bleeding. His repeat hemoglobin is 9.9. His platelets are normal. He has no evidence of ongoing active bleeding at this time. Agree with PPI PUD prophylaxis, Call with any change clinical status and/or evidence of GI bleeding.
[2017-04-16] MEDS ORDERED: SUCCINYLCHOLINE CHLORIDE 20 MG/ML 10 ML VIAL IV ONE (14:40)
[2017-04-16] MEDS ORDERED: VECURONIUM BROMIDE 10 MG VIAL IV ONE (14:40)
[2017-04-16 14:45] LABS: ALB/GLOB RATIO 0.7 (0.9-2); ALKALINE PHOSPHATASE 110 U/L (45-117); ALT/SGPT 184 U/L (12-78); AMYLASE 82 U/L (25-115); AST/SGOT 268 U/L (15-37); BLOOD UREA NITROGEN 57 mg/dl (7-18); BUN/CREATININE RATIO 17.3 (10-20); CALCIUM 8.1 mg/dl (8.5-10.1); CARBON DIOXIDE 21 mmol/L (21-32); CHLORIDE 107 mmol/L (98-107); GLUCOSE 356 mg/dl (70-99); MAGNESIUM 2.6 mg/dl (1.8-2.4); PHOSPHORUS 4.9 mg/dl (2.5-4.9); POTASSIUM 6.4 mmol/L (3.5-5.1); SODIUM 134 mmol/L (136-145)
[2017-04-16] MEDS ORDERED: SODIUM BICARB 8.4% INJ 50 MEQ/50 ML SYR IV ONE ×2 (14:52→15:32)
[2017-04-16] MEDS ORDERED: PHARMACY GLYCEMIC MGMT CONSULT PRN (15:00)
[2017-04-16] MEDS ORDERED: INSULIN IV INFUSION PROTOCOL SCH (15:00)
[2017-04-16] MEDS ORDERED: NovoLIN-R INSULIN PER UNIT CHARGE ONE (15:02)
[2017-04-16 15:03] LABS: BETA-HYDROXYBUTYRATE 2.29 mg/dL (0.2-2.81)
--- NOTE | 2017-04-16 15:11 | Pharmacy Progress Note ---
Glycemic Control Intl Consult Date of Service Apr 16, 2017. Scope Glycemic Pharmacist consulted by Dr Tobin on 04/16/17 for glycemic control and to write orders per [facility] ED inpatient glycemic control protocol Objective Weight (Kilograms): 72.400 Accuchecks BSG (last 24hrs): Test 04/16/17 10:10 04/16/17 10:14 04/16/17 11:25 04/16/17 12:44 Random Glucose mg/dl (70-99) 263 mg/dl (70-99) Bedside Glucose 215 mg/dl (70-99) 276 mg/dl (70-99) Test 04/16/17 14:01 Random Glucose 356 mg/dl (70-99) Laboratory Data (last 24hrs) Test 04/16/17 10:10 04/16/17 10:16 04/16/17 11:25 04/16/17 14:01 Anion Gap mmol/L 18.0 mmol/L 8.0 mmol/L 5.0 mmol/L BUN/Creatinine Ratio 17.2 17.3 Blood Urea Nitrogen mg/dl 55 mg/dl 57 mg/dl Creatinine mg/dl 3.20 mg/dl 3.30 mg/dl Potassium Level mmol/L 5.2 mmol/L 6.4 mmol/L Sodium Level mmol/L 133 mmol/L 134 mmol/L White Blood Count K/uL 10.57 K/uL 16.42 K/uL Red Blood Count M/uL 3.28 M/uL Hemoglobin g/dL 9.9 g/dL Hematocrit % 30.3 % Mean Corpuscular Volume fL 92.4 fL Mean Corpuscular Hemoglobin pg 30.2 pg Mean Corpuscular Hemoglobin Concent g/dl 32.7 g/dl Platelet Count K/uL 228 K/uL Mean Platelet Volume fL 10.7 fL Neutrophils (%) (Auto) 71.9 % Lymphocytes (%) (Auto) 21.6 % Monocytes (%) (Auto) 5.3 % Eosinophils (%) (Auto) 0.4 % Basophils (%) (Auto) 0.2 % Neutrophils # (Auto) 7.61 K/uL Lymphocytes # (Auto) 2.28 K/uL Monocytes # (Auto) 0.56 K/uL Eosinophils # (Auto) 0.04 K/uL Basophils # (Auto) 0.02 K/uL Recent Pertinent Medications Outpatient Anti-diabetic Regimen: * Humulin R sliding scale * A1c = 9.5 % 03/2016 Risk Factors for Insulin Resistance: * IV fluids: sandostatin, Protonix * Mechanical Ventilation: yes, s/p multiple codes Assessment & Plan ASSESSMENT: * ADA & AACE recommend a goal blood sugar range 140-180 mg/dl for the majority of critically ill & non-critically ill patients. However, more stringent targets may be selected in individual cases. * Mr Dash is a 61 y/o M with a PMH of CDK stage III, h/o CVA, and HIV admitted with multiple codes and asystole. He is admitted to the ICU and currently undergoing cooling protocol. He has a PMH of diabetes and insulin infusion begun. PLAN FOR INPATIENT GLYCEMIC CONTROL: * Starting IV insulin infusion per moderate (moderate/severe) stress protocol * Goal Range 140 - 180 mg/dl * In the critical care setting, continuous IV insulin infusion has been shown to be the best method for achieving glycemic targets. * Please note that the plan above was derived based on current level of insulin resistance and hospital stress. These recommendations are appropriate for inpatient admission only. Plan of care upon discharge will need to be reassessed to avoid potential outpatient hypo/hyperglycemia. Thank you.
[2017-04-16] MEDS ORDERED: DEXTROSE 5% 100 ML BAG IV ONE (15:32)
[2017-04-16] MEDS ORDERED: SODIUM CHLORIDE 0.9% 10ML FLUSH IV ONE ×2 (15:32→15:35)
[2017-04-16] MEDS ORDERED: AMIODARONE HCL INJ 50 MG/ML 3 ML VIAL IV ONE (15:32)
[2017-04-16] MEDS ORDERED: ATROPINE SULFATE 0.1 MG/ML 10 ML SYR IV ONE ×2 (15:32→15:35)
[2017-04-16] MEDS ORDERED: CALCIUM CHLORIDE 10% 10 ML SYR IV ONE (15:35)
[2017-04-16] MEDS: AZTREONAM IV 1,000 MG in DEXTROSE 5% 100ML 100 ML IV SCH ×2 (15:42→22:52)
[2017-04-16] MEDS ORDERED: GLUCAGON FOR INJ 1 MG VIAL SQ PRN (15:45)
[2017-04-16] MEDS ORDERED: GLUCOSE 40% GEL 15 GM TUBE PO PRN (15:45)
[2017-04-16] MEDS ORDERED: GLUCOSE 10 TABS/TUBE PO PRN (15:45)
[2017-04-16] MEDS ORDERED: INSULIN REGULAR 250 UNITS in SODIUM CHLORIDE 0.9% 250ML 250 ML IV SCH (16:00)
[2017-04-16] MEDS ORDERED: CONSULT PHARMACY STA (16:06)
--- NOTE | 2017-04-16 16:06 | Critical Care Consultation ---
Critical Care Consultation Date of Consultation: Apr 16, 2017. Attending Physician: Viji Saldaña DO Reason for Consultation: asystole cardiopulmonary arrest History of Present Illness This is a 61 yo transgender male to female patient who is known to have HIV disease on antiretrovirals. She is incarcerated at the [facility] and was complaining of SOB. EMS was called in route to the ED she had bradycardia and asystole. She went on to develop at least 2 such episodes where CPR would be started and she recieves epinephrine and there is return of circulation within minutes. She was intubated and an arctic protocol was started. The patient had no documented shockable rhythm V tach or V fib. She was brought to the ICU where she continued to have episodes of asystole. We placed in a cardiac pacemaker and it initially was capturing but then we lost capture. She was placed on a dopamine drip and that restarted HR. Given the arrhytmia and together with her K derangement (known side effects of cooling) and absence of shockable rhythm which is the established indication for arctic code I elected to end her arctic code. An A line was placed and cardiology was consulted when we lost the capture. Cardiology repositioned the catheter in the RV with good capture. The patient remains non responsive. Past Medical/Surgical History Medical Problems: (1) CKD (chronic kidney disease), stage III Status: Chronic (2) CVA (cerebral vascular accident) Status: Chronic (3) DM type 2 (diabetes mellitus, type 2) Status: Chronic (4) G-6-PD deficiency Status: Chronic (5) HIV (human immunodeficiency virus infection) Status: Chronic (6) HTN (hypertension) Status: Chronic (7) [id number]-[id number] transgender person Status: Chronic Family History No pertinent family history stated Unable to obtain Family History No pertinent family history stated non contributory at this point Social History Smoking Status: Current Every Day Smoker Alcohol Use: none Drug Use: none Housing Status: other Occupation Status: unemployed Allergies Coded Allergies: Penicillins (Verified Allergy, Intermediate, UNKNOWN, 04/16/17) Home Medications Scheduled Amlodipine Besylate (Norvasc), 1 TAB PO DAILY Aspirin (Aspirin EC Low Dose), 81 MG PO QAM Atorvastatin (Atorvastatin Calcium), 40 MG PO QAM Bumetanide (Bumex), 1 MG PO DIRECTED Darunavir Ethanolate (Prezista), 800 MG PO HS Afqitunaykol-Rgzpvwnxfq-Vgesvq (Genvoya [phone] mg), 1 TAB PO DAILY Estradiol (Estradiol), 1 MG PO DAILY Estradiol (Climara), 0.1 MG TOP DAILY Finasteride (Proscar), 5 MG PO DAILY Insulin Human Regular (Humulin R), 1 DOSE SQ SLIDING SCALE Latanoprost 0.005% Oph (Xalatan 0.005% Oph), 1 DROP OPB HS Metoprolol Tartrate (Lopressor) (Lopressor), 50 MG PO BID Multivitamin (Multivitamin), 1 TAB PO DAILY Potassium Chloride (Micro-K Ext Rel), 10 MEQ PO DAILY Scheduled PRN Glucose (Bd Glucose), 4 MG PO QID PRN for PRN Ondansetron Hcl (Zofran), 8 MG PO BID PRN for Nausea Current Inpatient Medications Current Inpatient Medications Medications (Trade) Dose Ordered Sig/Carlin Route Start Time Stop Time Status Last Admin Dose Admin Buspirone HCl (BusPAR TAB) 60 mg ONE PRN NG 04/16/17 11:15 05/16/17 11:14 Meperidine HCl (Demerol Inj) 25 mg Q2H PRN IV 04/16/17 11:15 04/30/17 11:14 Tramadol HCl (Ultram Tab) 50 mg Q6H PRN NG 04/16/17 11:15 05/16/17 11:14 Pantoprazole Sodium 40 mg/ Dextrose 100 ml @ 20 mls/hr Q5H IV 04/16/17 11:45 04/16/17 16:44 04/16/17 11:36 20 MLS/HR Octreotide Acetate 500 mcg/ Sodium Chloride 105 ml @ 10 mls/hr [id number] ONCE IV 04/16/17 11:15 04/16/17 21:44 Aztreonam 1000 mg/ Dextrose 110 ml @ 100 mls/hr Q8H IV 04/16/17 14:00 04/23/17 13:59 Insulin Human Regular (Insulin IV Infusion Protocol) 1 ea STOP! USE ORDER SET N/A 04/16/17 15:00 05/16/17 14:59 UNV Miscellaneous Information (Consult Glycemic Management Pharmacy) 1 ea UD PRN N/A 04/16/17 15:00 05/16/17 14:59 Review of Systems ROS is not obtainable from this patient. She is not responsive and intubated Physical Exam Date Time Temp Pulse Resp B/P (MAP) Pulse Ox O2 Delivery O2 Flow Rate FiO2 04/16/17 15:02 61 16 143/64 04/16/17 14:10 50 04/16/17 14:00 70 16 133/71 (87) 98 04/16/17 13:00 33 100 04/16/17 12:35 52 100 04/16/17 11:55 77 12 167/70 96 04/16/17 11:50 77 12 04/16/17 11:39 121/57 04/16/17 11:36 122/59 04/16/17 11:35 43 12 100 04/16/17 11:34 123/58 04/16/17 11:32 122/59 04/16/17 11:30 45 12 120/59 100 04/16/17 11:28 123/61 04/16/17 11:26 118/60 04/16/17 11:25 46 12 100 04/16/17 11:24 123/61 04/16/17 11:20 48 12 100 04/16/17 11:19 124/55 04/16/17 11:16 125/61 04/16/17 11:15 48 12 100 04/16/17 11:14 125/62 04/16/17 11:12 132/64 04/16/17 11:10 50 12 131/60 100 04/16/17 11:05 55 12 100 Mechanical Ventilator 100 04/16/17 11:04 149/68 04/16/17 11:02 177/75 04/16/17 11:01 223/91 04/16/17 11:00 88 12 100 04/16/17 10:58 122/85 04/16/17 10:56 117/62 04/16/17 10:55 40 12 130/63 100 04/16/17 10:54 129/59 04/16/17 10:52 126/61 04/16/17 10:50 40 12 128/61 100 04/16/17 10:48 127/61 04/16/17 10:46 130/61 04/16/17 10:45 43 12 100 04/16/17 10:44 140/64 04/16/17 10:42 126/65 04/16/17 10:40 43 7 120/71 100 04/16/17 10:35 0 04/16/17 10:30 0 04/16/17 10:25 0 04/16/17 10:22 141/63 04/16/17 10:20 48 12 100 04/16/17 10:19 47 04/16/17 10:15 59 100 04/16/17 10:12 227/90 04/16/17 10:11 88 04/16/17 10:10 94 200/113 88 04/16/17 10:08 89 04/16/17 10:08 200/113 04/16/17 10:07 104 04/16/17 10:06 82 04/16/17 10:04 36.4 0 0 137/116 94 Ambu-Bag 100 04/16/17 10:04 97 04/16/17 10:00 100 patient is intubated and non responsive T 33.1 when I examined her. She was not withdrawing to pain lungs bilateral air entry heart nl s1 s2 no murmurs. when not in asystole abdomen soft non tender BS are diminished ext + LE edema no UEE neurologic no response to pain and no spontaneous movement of extremities Laboratory Results Last 24 Hours Test 04/16/17 10:10 04/16/17 10:14 04/16/17 10:16 04/16/17 10:22 White Blood Count K/uL Red Blood Count M/uL Hemoglobin g/dL Hematocrit % Mean Corpuscular Volume fL Mean Corpuscular Hemoglobin pg Mean Corpuscular Hemoglobin Concent g/dl Platelet Count K/uL Mean Platelet Volume fL RDW Standard Deviation fL RDW Coefficient of Variation % Sodium Level mmol/L Potassium Level mmol/L Chloride Level mmol/L Carbon Dioxide Level mmol/L Anion Gap mmol/L 18.0 mmol/L Blood Urea Nitrogen mg/dl Creatinine mg/dl Estimated GFR () Estimated GFR (Non- BUN/Creatinine Ratio Random Glucose mg/dl Calcium Level mg/dl Total Bilirubin mg/dl Direct Bilirubin mg/dl Aspartate Amino Transf (AST/SGOT) U/L Alanine Aminotransferase (ALT/SGPT) U/L Alkaline Phosphatase U/L Total Creatine Kinase U/L Creatine Kinase MB ng/ml Creatine Kinase MB Ratio Troponin I ng/ml Pro-B-Type Natriuretic Peptide pg/ml Total Protein gm/dl Albumin gm/dl Lipase U/L Bedside Glucose 215 mg/dl Bedside Hemoglobin 9.5 g/dl Bedside Hematocrit 28 % Bedside Sodium 141 mEq/L Bedside Potassium 3.9 mEq/L Bedside Chloride 115 mEq/L Bedside Total CO2 14 mEq/l Bedside Blood Urea Nitrogen 40 mg/dl Bedside Creatinine 2.5 mg/dl Bedside Glucose (other) 212 mg/dl Bedside Ionized Calcium (Raffy) 0.96 mmol/l Bedside Lactic Acid Venous 3.19 mmol/L Test 04/16/17 11:25 04/16/17 12:37 04/16/17 12:44 04/16/17 13:50 White Blood Count 10.57 K/uL Red Blood Count 3.28 M/uL Hemoglobin 9.9 g/dL Hematocrit 30.3 % Mean Corpuscular Volume 92.4 fL Mean Corpuscular Hemoglobin 30.2 pg Mean Corpuscular Hemoglobin Concent 32.7 g/dl Platelet Count 228 K/uL Mean Platelet Volume 10.7 fL Neutrophils (%) (Auto) 71.9 % Lymphocytes (%) (Auto) 21.6 % Monocytes (%) (Auto) 5.3 % Eosinophils (%) (Auto) 0.4 % Basophils (%) (Auto) 0.2 % Neutrophils # (Auto) 7.61 K/uL Lymphocytes # (Auto) 2.28 K/uL Monocytes # (Auto) 0.56 K/uL Eosinophils # (Auto) 0.04 K/uL Basophils # (Auto) 0.02 K/uL RDW Standard Deviation 38.7 fL RDW Coefficient of Variation 11.5 % Immature Granulocyte % (Auto) 0.6 % Immature Granulocyte # (Auto) 0.06 K/uL Sodium Level 133 mmol/L Potassium Level 5.2 mmol/L Chloride Level 107 mmol/L Carbon Dioxide Level 18 mmol/L Anion Gap 8.0 mmol/L Blood Urea Nitrogen 55 mg/dl Creatinine 3.20 mg/dl Estimated GFR () 22.7 Estimated GFR (Non- 19.5 BUN/Creatinine Ratio 17.2 Random Glucose 263 mg/dl Calcium Level 7.4 mg/dl Total Bilirubin 0.7 mg/dl Direct Bilirubin 0.4 mg/dl Aspartate Amino Transf (AST/SGOT) 166 U/L Alanine Aminotransferase (ALT/SGPT) 122 U/L Alkaline Phosphatase 93 U/L Total Creatine Kinase 96 U/L Creatine Kinase MB 0.7 ng/ml Creatine Kinase MB Ratio 0.7 Troponin I 0.028 ng/ml Total Protein 6.4 gm/dl Albumin 2.7 gm/dl Lipase 600 U/L Stool Occult Blood NEGATIVE Bedside Glucose 276 mg/dl Prothrombin Time 11.1 SECONDS Prothromb Time International Ratio 1.0 Activated Partial Thromboplast Time 22.0 SECONDS Partial Thromboplastin Ratio 0.8 Ionized Calcium 1.19 mmol/l Test 04/16/17 14:01 04/16/17 14:21 White Blood Count 16.42 K/uL Red Blood Count 3.27 M/uL Hemoglobin 10.4 g/dL Hematocrit 29.9 % Mean Corpuscular Volume 91.4 fL Mean Corpuscular Hemoglobin 31.8 pg Mean Corpuscular Hemoglobin Concent 34.8 g/dl RDW Standard Deviation 38.2 fL RDW Coefficient of Variation 11.6 % Platelet Count 232 K/uL Mean Platelet Volume 11.2 fL Sodium Level 134 mmol/L Potassium Level 6.4 mmol/L Chloride Level 107 mmol/L Carbon Dioxide Level 21 mmol/L Anion Gap 5.0 mmol/L Blood Urea Nitrogen 57 mg/dl Creatinine 3.30 mg/dl Estimated GFR () 21.8 Estimated GFR (Non- 18.8 BUN/Creatinine Ratio 17.3 Random Glucose 356 mg/dl Calcium Level 8.1 mg/dl Phosphorus Level 4.9 mg/dl Magnesium Level 2.6 mg/dl Total Bilirubin 1.0 mg/dl Aspartate Amino Transf (AST/SGOT) 268 U/L Alanine Aminotransferase (ALT/SGPT) 184 U/L Alkaline Phosphatase 110 U/L Troponin I 0.078 ng/ml Total Protein 6.7 gm/dl Albumin 2.7 gm/dl Globulin 4.0 gm/dl Albumin/Globulin Ratio 0.7 Amylase Level 82 U/L Beta-Hydroxybutyric Acid 2.29 mg/dL Diagnostic Results ECG showed no ST-T changes It showed RBB configuration as she was capturing the pacer Assessment & Plan 61 yo transgender female patient who is admitted with recurrent asystole. known to have HIV, HTN and above medical comorbidities. The patient has had a similar episode in 2016 ma. Back then it was blamed on cardizem and the medication was stopped with resolution of symptoms. She was not given a permanent pacemaker no sedation warm up to 36 levophed for MAP >65 mmHg PPM 10 mA rate 70 appreciate cardiology input trend troponin daily ECG ventilator setting at 500 RR 16 PEEP 5 FIO2 70% FU ABG and adjust accordingly aztreonam vancomycin and levaquin for possible sepsis procalcitonin level Albumin and lasix to initiate UO FU and replete lytes use bicarbonate and insulin for K control insulin drip to control sugar 140-180 heparin SC 5000 DVT prophylaxis hold antiretrovirals FU lipase appreciate GI input. pantoprazole for GI prophylaxis patient is critically ill and I spent a total of 75 minutes of CC time managing her today exclusive of procedural time
[2017-04-16] MEDS ORDERED: ALBUMIN HUMAN 25% 12.5 GM/50 ML VIAL IV ONE (16:30)
[2017-04-16] MEDS ORDERED: FUROSEMIDE INJ 80 MG in SYRINGE 0 ML IV ONE (16:30)
[2017-04-16] MEDS ORDERED: NOREPINEPHRINE BIT INJ 8 MG in DEXTROSE 5% 500ML 500 ML IV PRN (16:30)
[2017-04-16 16:37] LABS: ACT87 HEP C IGG SCREEN** NEG (NEG)
[2017-04-16 16:48] LABS: ISTAT ARTERIAL BLOOD GAS HCO3 20 meq/L (19-24); ISTAT ARTERIAL BLOOD GAS PCO2 46 mmHg (35-46); ISTAT ARTERIAL BLOOD GAS PO2 155 mmHg (80-95); ISTAT ARTERIAL BLOOD GAS pH 7.21 (7.35-7.45); ISTAT CARBON DIOXIDE 22 mEq/l (24-31); ISTAT DELIVERY SYSTEM Ventilator; ISTAT FIO2 100 %; ISTAT PEEP 10; ISTAT RATE 12; ISTAT SITE Art Line; VE 5.3; Vt 500
[2017-04-16 16:48] LABS: ISTAT ARTERIAL BLOOD GAS HCO3 19 meq/L (19-24); ISTAT ARTERIAL BLOOD GAS PCO2 53 mmHg (35-46); ISTAT ARTERIAL BLOOD GAS PO2 209 mmHg (80-95); ISTAT ARTERIAL BLOOD GAS pH 7.16 (7.35-7.45); ISTAT CARBON DIOXIDE 20 mEq/l (24-31); ISTAT HEMATOCRIT 31 % (42-52); ISTAT HEMOGLOBIN 10.5 g/dl (14.0-18.0); ISTAT SODIUM 131 mEq/L (135-144)
[2017-04-16 16:48] LABS: ISTAT ARTERIAL BLOOD GAS HCO3 19 meq/L (19-24); ISTAT ARTERIAL BLOOD GAS PCO2 42 mmHg (35-46); ISTAT ARTERIAL BLOOD GAS PO2 187 mmHg (80-95); ISTAT ARTERIAL BLOOD GAS pH 7.23 (7.35-7.45); ISTAT CARBON DIOXIDE 20 mEq/l (24-31); ISTAT DELIVERY SYSTEM Ventilator; ISTAT FIO2 70 %; ISTAT PEEP 10; ISTAT RATE 16; ISTAT SITE Art Line; VE 7; Vt 500
[2017-04-16] MEDS ORDERED: VANCOMYCIN INJ 1,500 MG in SODIUM CHLORIDE 0.9% 500ML 500 ML IV ONE (17:00)
[2017-04-16] MEDS ORDERED: AZTREONAM CONSULT ACTIVE PRN ×2 (17:15)
[2017-04-16] MEDS ORDERED: VANCOMYCIN CONSULT ACTIVE PRN (17:15)
[2017-04-16] MEDS ORDERED: LEVOFLOXACIN CONSULT ACTIVE PRN (17:15)
[2017-04-16] MEDS: INSULIN ASPART 100 UNITS/ML 3 ML PEN SC SCH ×2 (17:15→19:17)
[2017-04-16] MEDS ORDERED: SODIUM BICARB 8.4% INJ 50 MEQ/50 ML SYR IV STA (17:23)
[2017-04-16] MEDS: PANTOprazole INJ 40 MG in SYRINGE 0 ML IV SCH (17:28)
[2017-04-16] MEDS ORDERED: LEVOFLOXACIN / D5W 500 MG in PREMIXED IN D5W 100 ML IV SCH (18:00)
[2017-04-16 18:08] LABS: INR 1.1 (0.9-1.1); PARTIAL THROMBOPLASTIN RATIO 0.9; PROTHROMBIN TIME (PATIENT) 11.4 SECONDS (9.0-12.0)
--- NOTE | 2017-04-16 18:25 | CARDIOLOGY CONSULTATION ---
DATE OF CONSULTATION: 04/16/2017 TIME: 17:15. CONSULTING PHYSICIAN: Dr. Tobin. REASON FOR CONSULTATION: Asystole/cardiac arrest, evaluate for pacemaker. HISTORY OF PRESENT ILLNESS: Ms. Dash is a 61-year-old transgendered male to female, with a history significant for hypertension, HIV and reported diet controlled diabetes, who presented to [facility] today as a cardiac arrest. History is limited due to the patient's intubated state and was obtained by talking the nursing staff, the ICU critical care team, and reviewing records. She apparently arrested en route to the hospital and chest compressions were started in the ambulance. According to report, asystole occurred en route to the hospital. Besides chest compressions, epinephrine and atropine were also reported as being given. She has undergone cardiac arrest 2-3 times during this hospitalization thus far according to other medical personnel caring for her. There was no ventricular arrhythmia reported, but rather asystole and long pauses. At the bedside, critical care team placed in the right internal jugular sheath and through the sheath, placed a temporary intravenous pacemaker. They stated that it was initially capturing, but then lost capture. Dopamine infusion was started and titrated upward and they were able to maintain a heart rate in the 40s. An arterial line was placed in the right radial artery and blood pressure monitoring was performed and systolic blood pressure was in the 80s-100s. It is not clear if she was having any symptoms at this time prior to presentation, but according to EMS, she was short of breath for the past 2 days with bilateral swelling in her lower extremities. Dr. Tobin following another code blue situation asked if her temporary intravenous pacemaker could be adjusted or replaced. REVIEW OF SYSTEMS: As above and review of systems are otherwise unobtainable due to patient's current mental status and intubated state. PAST MEDICAL HISTORY: 1. Hypertension. 2. HIV. 3. Reported diet controlled diabetes. 4. Stroke. 5. CKD. 6. G6PD deficiency. 7. Male to female transgender. 8. Brief temporary transvenous pacemaker for heart block in December of 2015 when she was profoundly bradycardic with reported transient cardiac arrest. Diltiazem was discontinued during that hospitalization and temporary venous pacemaker was discontinued without placement of a permanent pacemaker. CURRENT MEDICATIONS: Include aztreonam, levofloxacin, dopamine, Protonix 40 mg IV daily, and vancomycin. She also received a dose of daptomycin. Lasix 80 mg IV x1. ALLERGIES: PENICILLIN. SOCIAL HISTORY: As per prior records. No children. Incarcerated at [facility]. No tobacco, alcohol or drug abuse; however, this cannot be obtained due to the patient's current mental status. FAMILY HISTORY: Unobtainable. PHYSICAL EXAMINATION: VITAL SIGNS: Temperature 36.4 degrees, heart rate in the 40s, respiratory rate 14, blood pressure 110/55 mmHg, and oxygen saturation 100% on mechanical ventilation. GENERAL: She is intubated and unresponsive. NECK: Cannot assess JVD as the patient is lying flat with IJ sheath in place. CARDIAC EXAM: No ventricular heave. Regular, bradycardic in the 40s. Normal S1 and S2. There were no audible murmurs, rubs or gallops. LUNGS: Coarse breath sounds bilaterally. ABDOMEN: Soft and nondistended. EXTREMITIES: 1+ bilateral lower extremity edema. No cyanosis. No palpable cords. 1+ dorsalis pedis pulse bilaterally. Right radial arterial line in place. LABORATORY DATA: White blood cell count 16.42, hemoglobin 10.4, and platelets 232. Sodium 134, potassium 6.4, BUN 57, creatinine 3.3, glucose 356, and magnesium 2.6. AST 268 up from 166 and ALT 184. Troponin 0.078 up from 0.028. Albumin 2.7. Lipase 600. ABG, pH 7.23, pCO2 of 42, and pO2 of 187. The pH was 7.16 at one time. INR 1. Tox screen is pending. Stool occult blood negative. Hepatitis C negative. CTA of the chest, no evidence of acute pulmonary embolism per radiology. Cardiomegaly reported by radiology with interstitial edema and small right pleural effusion. Dependent bibasilar airspace opacities. A 5.5-mm right middle lobe ground-glass pulmonary nodule and a 6-mm upper lobe pulmonary nodule. Head CT report reviewed. No acute intracranial findings. Moderate white matter disease likely on a small vessel basis, slightly progressive per radiology. Old right thalamic infarct. ICU clinical course: I was called to the bedside and due to recurrent cardiac arrest and long pauses noted on telemetry, the decision was made to take her to the laboratory manager to evaluate her pacemaker placement with fluoroscopy, try to reposition, and possibly place a new transvenous temporary pacemaker. She was taken to the laboratory manager and under fluoroscopy, it was noted that the catheter tip was likely advanced into intrahepatic vein. It was withdrawn and repositioned within the right ventricle with good capture. It remains capturing well at 10 milliamps. There was no significant change in her blood pressure on the arterial line with improvement in heart rate. The transvenous pacemaker was left in place at approximately 30-35 cm and secured in typical fashion with loops of the catheter. The sheath was already secured in place by the critical care team. She was then returned to the ICU and Dr. Tobin was contacted to update the repositioning of the transvenous pacemaker. Also noted during the repositioning was the fact that she was more profoundly hyperkalemic. One amp of sodium bicarbonate was ordered and administered and 10 units of insulin were also given. Tan Funk PA-C of critical care team, also presented to the laboratory manager to inform us that an insulin drip was also being initiated due to hyperglycemia and hyperkalemia. ECGs personally reviewed. ECG 04/16/2017 at 10:21, sinus bradycardia at 48 beats per minute. Right bundle branch block. Inferolateral T-wave abnormality. ECG on 04/16/2017 at 13:38 demonstrated electronic atrial pacing with a right bundle branch block pattern. ASSESSMENT AND PLAN: 1. Cardiac arrest: She appeared to have asystole and then also sinus pauses noted on telemetry here. Because she was not capturing with the temporary transvenous pacer placed in the ICU setting by the critical care team, she was taken to the laboratory manager and fortunately, the temporary pacemaker was able to be repositioned into the right ventricle with capture. Continue temporary pacemaker for now. This is the second hospitalization where she required transvenous pacemaker. If she has any meaningful recovery, would consider a dual chamber pacemaker. Electrophysiology, Dr. Yañez, will follow her over the weekend and help assist with this over time. 2. Hyperkalemia: This was treated acutely in the laboratory manager setting and following bicarbonate administration and insulin, further treatment and followup will be performed by the critical care team, who will be started an insulin drip and is managing repeat labs. With correction of her potassium, hopefully, arrhythmia issues will improve; however, her potassium has significantly elevated upon presentation with an initial potassium recorded as 5.2. 3. Elevated troponins: Troponins are minimally elevated and not diagnostic of myocardial infarction. She apparently has been symptomatic for a couple days with shortness of breath, but no reported chest pain; however, full review systems is unobtainable due to the patient's mental status. Can trend troponins until peak. This is not likely represent acute coronary syndrome. Echocardiogram ordered and is currently pending. 4. Acute renal failure: She has a history of chronic kidney disease per report and does have elevated creatinine now as well as elevated transaminase levels. This is at least in part due to the fact that she has been hypoperfusing during the cardiac arrest, but she has also been hospitalized on more than one occasion with acute renal failure. Can consider nephrology consultation if no improvement with better blood pressure support and better perfusion. 5. Hypotension: As per critical care team. It appears as though they have since started Levophed. Overall etiology of her shortness of breath on presentation is not yet known; however, she is being covered with broad spectrum antibiotics for concern of infection. 6. Disposition: I will be away from the hospital for the next [address] Yañez will be covering from a cardiology standpoint and his expertise will be useful given the fact that from a cardiac perspective, her main issue appears to be electrical issues with what appears to be sinus node dysfunction. Her presentation and the patient's care will be discussed with him. The patient's care has been discussed with the critical care team, Dr. Tobin as well as Tan Funk, physician assistant professor of biochemistry as well as nursing staff. Greater than 60 minutes critical care time was spent managing her sinus node dysfunction and asystole issues including the repositioning of her transvenous pacemaker. There were no other billable services performed in regards to procedures by myself in regards to her transvenous pacemaker, but rather a repositioning and management of the temporary transvenous pacemaker. Thank you for allowing me to participate in care of Ms. Dash. Sincerely, GILSON
[2017-04-16 18:29] LABS: ISTAT ARTERIAL BLOOD GAS HCO3 18 meq/L (19-24); ISTAT ARTERIAL BLOOD GAS PCO2 32 mmHg (35-46); ISTAT ARTERIAL BLOOD GAS PO2 63 mmHg (80-95); ISTAT ARTERIAL BLOOD GAS pH 7.31 (7.35-7.45); ISTAT CARBON DIOXIDE 19 mEq/l (24-31); ISTAT DELIVERY SYSTEM Ventilator; ISTAT FIO2 50 %; ISTAT PEEP 18; ISTAT RATE 20; ISTAT SITE Art Line; VE 9.2; Vt 500
--- NOTE | 2017-04-16 19:10 | ECHOCARDIOGRAM REPORT ---
*NOTICE TO RECEIVING [employer] This information is strictly Confidential and protected under [place] law. [place] law prohibits you from making any further disclosure of this information unless further disclosure is expressly permitted by the written consent of the person to whom it pertains or is authorized by law. A general authorization for the release of medical or other information is not sufficient for this purpose. Hospital accepts no responsibility if the information is made available to any other person, INCLUDING THE PATIENT. Interpretation Summary * Name: CHAUNCEY CHAU [id number] Study Date: 04/16/2017 04:47 PM BP: 143/64 mmHg * Patient Location: .MSICU\S\E111\S\1 HR: 61 * : 1955 (M/d/yyyy) Gender: Male Height: 70 in * Age: 61 yrs Ethnicity: AA Weight: 160 lb * Ordering Physician: Hever Ward * Referring Physician: Mike SIMMONS * Performed By: Kimmy Archuleta RDCS * * Reason For Study: Cardiac arrest * BSA: 1.9 m2 * -- Conclusions -- * 1. Normal left ventricular size and systolic function. EF 60-65%. No regional wall motion abnormalities. Moderate concentric left ventricular hypertrophy. * 2. Mild biatrial dilation. * 3. Trace pericardial effusion without echocardiographic evidence of tamponade physiology. * 4. There is mild to moderate mitral regurgitation. * 5. Normal estimated right ventricular systolic pressure; 29mmHg. * 6. Compared to prior study on 03/20/2016, there now appears to be [id number] mitral regurgitation and there is a trace pericardial effusion. Procedure Details * A complete two-dimensional transthoracic echocardiogram was performed (2D, M-mode, Doppler and color flow Doppler). Left Ventricle * Normal left ventricular size and systolic function. EF 60-65%. No regional wall motion abnormalities. Moderate concentric left ventricular hypertrophy. Right Ventricle * The right ventricle is normal in size and function. * There is a pacemaker lead in the right ventricle. Atria * The left atrium is mildly dilated. * The right atrium is mildly dilated. * There is no evidence of atrial septal defect, but resolution does not allow assessment for a patent foramen ovale. Mitral Valve * The mitral valve is grossly normal. * There is no mitral valve stenosis. * There is mild to moderate mitral regurgitation. Tricuspid Valve * The tricuspid valve is not well visualized, but is grossly normal. * There is no tricuspid stenosis. * There is mild tricuspid regurgitation. Aortic Valve * The aortic valve is trileaflet. * Aortic valve sclerosis mild, without significant aortic valvular stenosis. * No hemodynamically significant valvular aortic stenosis. * There is no significant aortic regurgitation. Pulmonic Valve * The pulmonary valve is inadequately visualized, but the Doppler data is adequate for interpretation. * There is no pulmonic valvular stenosis. * There is no significant pulmonary regurgitation. Great Vessels * The aortic root is normal size. * Ascending aorta of normal dimension Pericardium/Pleural * Trace pericardial effusion without echocardiographic evidence of tamponade physiology. Great Vessels * Mildly dilated IVC. MMode 2D Measurements and Calculations IVSd 1.5 cm LVIDd 4.5 cm LVIDs 3.1 cm LVPWd 1.4 cm IVS/LVPW 1.1 FS 30.7 % EDV(Teich) 90.7 ml ESV(Teich) 37.7 ml EF(Teich) 58.4 % EDV(cubed) 88.9 ml ESV(cubed) 29.6 ml EF(cubed) 66.7 % LV mass(C)d 247.5 grams LV mass(C)dI 130.3 grams/m\S\2 SV(Teich) 53.0 ml SI(Teich) 27.9 ml/m\S\2 SV(cubed) 59.3 ml SI(cubed) 31.3 ml/m\S\2 Ao root diam 3.4 cm Ao root area 8.9 cm\S\2 ACS 2.4 cm LA dimension 3.2 cm asc Aorta Diam 3.2 cm LA/Ao 0.96 LVOT diam 2.1 cm LVOT area 3.4 cm\S\2 LVAd ap4 24.5 cm\S\2 LVLd ap4 7.0 cm EDV(MOD-sp4) 71.1 ml EDV(sp4-el) 73.5 ml LVAs ap4 15.1 cm\S\2 LVLs ap4 5.9 cm ESV(MOD-sp4) 33.5 ml ESV(sp4-el) 32.7 ml EF(MOD-sp4) 52.8 % EF(sp4-el) 55.4 % LVAd ap2 33.1 cm\S\2 LVLd ap2 8.3 cm EDV(MOD-sp2) 111.6 ml EDV(sp2-el) 111.7 ml LVAs ap2 16.7 cm\S\2 LVLs ap2 6.3 cm ESV(MOD-sp2) 37.5 ml ESV(sp2-el) 37.4 ml EF(MOD-sp2) 66.4 % EF(sp2-el) 66.5 % LVLd %diff 16.6 % EDV(MOD-bp) 97.0 ml LVLs %diff 5.8 % ESV(MOD-bp) 37.6 ml EF(MOD-bp) 61.2 % SV(MOD-sp4) 37.5 ml SI(MOD-sp4) 19.8 ml/m\S\2 SV(MOD-sp2) 74.1 ml SI(MOD-sp2) 39.1 ml/m\S\2 SV(MOD-bp) 59.4 ml SI(MOD-bp) 31.3 ml/m\S\2 SV(sp4-el) 40.7 ml SI(sp4-el) 21.5 ml/m\S\2 SV(sp2-el) 74.3 ml SI(sp2-el) 39.2 ml/m\S\2 Doppler Measurements and Calculations MV E max robert 74.7 cm/sec MV dec time 0.20 sec Ao V2 max 106.3 cm/sec Ao max PG 4.5 mmHg Ao max PG (full) 1.8 mmHg ANA(V,A) 2.6 cm\S\2 ANA(V,D) 2.6 cm\S\2 LV V1 max PG 2.7 mmHg LV V1 max 82.5 cm/sec TV E max robert 58.2 cm/sec PA V2 max 100.4 cm/sec PA max PG 4.0 mmHg PA acc slope 732.6 cm/sec\S\2 PA acc time 0.08 sec TR max robert 230.8 cm/sec RVSP(TR) 29.3 mmHg RAP systole 8.0 mmHg PA pr(Accel) 44.1 mmHg
[2017-04-16] MEDS: NITROGLYCERIN OINT 2% 1GM PACKET EXT SCH (20:16)
[2017-04-16 20:45] LABS: INR 1.1 (0.9-1.1); PROTHROMBIN TIME (PATIENT) 11.7 SECONDS (9.0-12.0)
[2017-04-16 21:00] LABS: BUN/CREATININE RATIO 17.3 (10-20); CALCIUM 8.2 mg/dl (8.5-10.1); CREATININE 3.6 mg/dl (0.60-1.40); MAGNESIUM 2.4 mg/dl (1.8-2.4); POTASSIUM 5.1 mmol/L (3.5-5.1)
[2017-04-16 21:16] LABS: BETA-HYDROXYBUTYRATE 1.35 mg/dL (0.2-2.81)
[2017-04-16] MEDS ORDERED: MIDAZOLAM HCL 1 MG/ML 2ML VIAL IV PRN (23:45)
[2017-04-16] MEDS ORDERED: NURSING VERBAL MED ORDER ONE (23:45)
[2017-04-16] MEDS ORDERED: PROPOFOL IV EMULSION 10 MG/ML 100 ML VIAL IV SCH (23:45)
[2017-04-17] VITALS (39 sets, daily range): BP systolic 98–183; BP diastolic 46–75; PULSE 69–85; TEMP 34.7–38; O2SAT 89–99
[2017-04-17 00:01] LABS: BENZODIAZEPINE, URINE NEG (NEG); COCAINE,URINE NEG (NEG); PHENCYCLIDINE, URINE NEG (NEG)
[2017-04-17] MEDS: DEXTROSE 50% 50 ML SYR IV PRN ×3 (00:17→03:25)
[2017-04-17 00:23] LABS: INR 1.1 (0.9-1.1); PROTHROMBIN TIME (PATIENT) 11.8 SECONDS (9.0-12.0)
[2017-04-17 00:34] LABS: BUN/CREATININE RATIO 16.6 (10-20); CALCIUM 8.1 mg/dl (8.5-10.1); CREATININE 3.6 mg/dl (0.60-1.40); MAGNESIUM 2.3 mg/dl (1.8-2.4); POTASSIUM 4.8 mmol/L (3.5-5.1)
--- NOTE | 2017-04-17 01:41 | Procedure Note ---
Procedure Note Procedure Date Apr 16, 2017. This was done around 1230 pm Procedure Description Procedure Name: pacemaker insertion through the R IJ Procedure time out: side/site verified, patient ID confirmed, correct procedure Consent obtained: emergent consent implied (she is incarcerated. Dr Saldaña and myself had to issue administrative conset due to the fact that the [facility]dc authority did not have POA over him and no other NOK listed) Performed by: attending Indications: therapeutic (The patient was in asystole and needed pacemaker insertion emergently) Description: The right aspect of the neck was draped and preped with chlorhexidine as is customary. The vascular ultrasound probe was ensheathed within the sterile jacket and used to identify the IJ vein on the right side. Local anesthesia with 1% lidocaine was applied. Introducer needle was then inserted under US guidance aiming to the R IJ. Blood flow back was achieved from the first stick. The guidewire was then inserted through the introducer needle. The tract was dilated then the pacemaker sheath was inserted over the guidewire in the usual sildinger technique. The sheath was then sutured to the skin. The pacemaker catheter was inserted through the sheath and ensheathed in the sterile jacket. It was advanced with 10 mA current VVI moder until there was capture. THe introducer sheath was then dressed in the usual sterile fashion Post procedure CXR confirmed the sheath in the IVC and pacemaker catheter in the RV next to lateral wall. about 45 minutes later the capture was lost. The patient was started on dopamine with adequate response of HR and cardiology was consulted. THey took the patient to the research laboratory technician and under fluoroscopy Dr Ward found the tip in the hepati vein and reintroduced it into the RV. patient was sent back with adequate capture at 70/min 10 mA. Complications: none
--- NOTE | 2017-04-17 01:50 | Procedure Note ---
Procedure Note Procedure Date Apr 16, 2017. Done about 2 pm Procedure Description Procedure Name: right radial arterial line Procedure time out: side/site verified, patient ID confirmed, correct procedure Consent obtained: emergent consent implied Performed by: attending Indications: diagnostic Contraindications: none Description: The patient was in asystole dependent on pacemaker and having an arctic protocol. The right wrist was prepared and draped in the usual sterile fashion using chlorhexidine prep. The right radial artery was palpated and the introducer needle inserted. It took 3 sticks to cannulate the artery but on the third time blood flashback was obtained and the guidewire was threaded. THen the catheter was inserted over the guidewire in the usual seldinger fashion. The catheter was then connected to the pressure transducer and proper arterial waveforms were identified. The line was then secured in place ad dressed in the usual sterile fashion. no complications EBL <5 ml
[2017-04-17] MEDS: NITROGLYCERIN OINT 2% 1GM PACKET EXT SCH ×4 (01:51→19:38)
[2017-04-17 03:48] LABS: HEMATOCRIT 23.5 % (42-52); IG% 0.4 %; LYMPH % 8.2 %; LYMPH ABS # 0.64 K/uL (1.2-3.4); MEAN CELL VOLUME 88.7 fL (80-100); MEAN CORPUSCULAR HEMOGLOBIN 31.7 pg (25-34); MEAN CORPUSCULAR HGB CONC 35.7 g/dl (32-36); MEAN PLATELET VOLUME 10.5 fL (7.4-10.4); MONO % 6.2 %; NEUT % 85.2 %; PLATELET COUNT 166 K/uL (130-400); RED BLOOD COUNT 2.65 M/uL (4.7-6.1); WHITE BLOOD COUNT 7.79 K/uL (4.8-10.8)
[2017-04-17 04:03] LABS: INR 1.1 (0.9-1.1); PARTIAL THROMBOPLASTIN RATIO 0.9
[2017-04-17 04:07] LABS: BUN/CREATININE RATIO 18.9 (10-20); CREATININE 3.3 mg/dl (0.60-1.40); POTASSIUM 4.9 mmol/L (3.5-5.1)
[2017-04-17 04:17] LABS: COMPLETE YES; PHOSPHORUS 3.4 mg/dl (2.5-4.9); POLYCHROMASIA 1+; TEAR DROP CELLS 1+
[2017-04-17] MEDS ORDERED: GLUCOSE 40% GEL 15 GM TUBE PO PRN (05:00)
[2017-04-17] MEDS ORDERED: DEXTROSE 50% 50 ML SYR IV PRN (05:00)
[2017-04-17] MEDS ORDERED: GLUCOSE 10 TABS/TUBE PO PRN (05:00)
[2017-04-17] MEDS ORDERED: GLUCAGON FOR INJ 1 MG VIAL SQ PRN (05:00)
[2017-04-17] MEDS: AZTREONAM IV 1,000 MG in DEXTROSE 5% 100ML 100 ML IV SCH ×3 (06:04→21:13)
[2017-04-17] MEDS: INSULIN ASPART 100 UNITS/ML 3 ML PEN SC SCH ×4 (06:40→21:05)
--- NOTE | 2017-04-17 07:13 | DIAGNOSTIC IMAGING REPORT ---
CHEST ONE VIEW PORTABLE CLINICAL HISTORY: intubated tube position. Dyspnea. COMPARISON STUDY: 04/16/2017 FINDINGS: Endotracheal tube 3.5 cm both mil. Central catheter remains this. Cava. This is been pulled back somewhat. Unchanging bibasilar parenchymal infiltrative change. Possible small left effusion. IMPRESSION: Tubes/lines positioned appropriately as noted. Slightly progressive components of congestive failure versus basilar infiltrates. The above report was generated using voice recognition software. It may contain grammatical, syntax or spelling errors. Electronically signed by: Davion Lopez M.D. 04/17/2017 7:11 AM Dictated Date/Time: 04/17/2017 7:10 AM
[2017-04-17 08:26] LABS: INR 1.1 (0.9-1.1); PARTIAL THROMBOPLASTIN RATIO 0.9
[2017-04-17 08:48] LABS: BUN/CREATININE RATIO 19.5 (10-20); CALCIUM 8.4 mg/dl (8.5-10.1); CREATININE 3.3 mg/dl (0.60-1.40); MAGNESIUM 1.9 mg/dl (1.8-2.4); POTASSIUM 5.2 mmol/L (3.5-5.1)
[2017-04-17] MEDS ORDERED: VANCOMYCIN INJ 1,000 MG in SODIUM CHLORIDE 0.9% 250ML 250 ML IV SCH (09:00)
--- NOTE | 2017-04-17 09:12 | Pharmacy Progress Note ---
Pharmacy Antibiotic Consult Date of Service: Apr 17, 2017. Pharmacy Dosing Scope Pharmacy is consulted to initiate vancomycin, levaquin, and aztreonam IV dosing therapy, order appropriate labs and adjust drug dose/frequency. Subjective The patient is a 61 year old male admitted on Apr 16, 2017 at 11:53. Objective Height (Feet): 5 Height (Inches): 10.00 Weight (Kilograms): 72.400 Lab Results (24hrs): Item Value Date Time Random Vancomycin Level 16.8 mcg/ml 04/17/17 0337 Test 04/16/17 10:10 04/16/17 10:16 04/16/17 10:22 04/16/17 11:25 Total Creatine Kinase U/L (39-308) 96 U/L (39-308) Creatine Kinase MB ng/ml (0.5-3.6) 0.7 ng/ml (0.5-3.6) Creatine Kinase MB Ratio (0-3.0) 0.7 (0-3.0) Pro-B-Type Natriuretic Peptide pg/ml (0-900) Lipase U/L (73-393) 600 U/L (73-393) Procalcitonin 0.10 ng/ml (0-0.5) Bedside Hemoglobin 9.5 g/dl (14.0-18.0) Bedside Hematocrit 28 % (42-52) Bedside Sodium 141 mEq/L (135-144) Bedside Potassium 3.9 mEq/L (3.3-5.0) Bedside Chloride 115 mEq/L (101-112) Bedside Total CO2 14 mEq/l (24-31) Bedside Blood Urea Nitrogen 40 mg/dl (7-18) Bedside Creatinine 2.5 mg/dl (0.6-1.3) Bedside Ionized Calcium (Raffy) 0.96 mmol/l (1.12-1.32) Bedside Lactic Acid Venous 3.19 mmol/L (0.90-1.70) Immature Granulocyte % (Auto) 0.6 % White Blood Count 10.57 K/uL (4.8-10.8) Red Blood Count 3.28 M/uL (4.7-6.1) Hemoglobin 9.9 g/dL (14.0-18.0) Hematocrit 30.3 % (42-52) Mean Corpuscular Volume 92.4 fL (80-100) Mean Corpuscular Hemoglobin 30.2 pg (25-34) Mean Corpuscular Hemoglobin Concent 32.7 g/dl (32-36) Platelet Count 228 K/uL (130-400) Mean Platelet Volume 10.7 fL (7.4-10.4) Neutrophils (%) (Auto) 71.9 % Lymphocytes (%) (Auto) 21.6 % Monocytes (%) (Auto) 5.3 % Eosinophils (%) (Auto) 0.4 % Basophils (%) (Auto) 0.2 % Neutrophils # (Auto) 7.61 K/uL (1.4-6.5) Lymphocytes # (Auto) 2.28 K/uL (1.2-3.4) Monocytes # (Auto) 0.56 K/uL (0.11-0.59) Eosinophils # (Auto) 0.04 K/uL (0-0.5) Basophils # (Auto) 0.02 K/uL (0-0.2) Immature Granulocyte # (Auto) 0.06 K/uL (0.00-0.02) Direct Bilirubin 0.4 mg/dl (0-0.2) Test 04/16/17 12:37 04/16/17 14:01 04/16/17 14:21 04/16/17 16:25 Stool Occult Blood NEGATIVE (NEGATIVE) White Blood Count 16.42 K/uL (4.8-10.8) Red Blood Count 3.27 M/uL (4.7-6.1) Hemoglobin 10.4 g/dL (14.0-18.0) Hematocrit 29.9 % (42-52) Mean Corpuscular Volume 91.4 fL (80-100) Mean Corpuscular Hemoglobin 31.8 pg (25-34) Mean Corpuscular Hemoglobin Concent 34.8 g/dl (32-36) RDW Standard Deviation 38.2 fL (36.4-46.3) RDW Coefficient of Variation 11.6 % (11.5-14.5) Platelet Count 232 K/uL (130-400) Mean Platelet Volume 11.2 fL (7.4-10.4) Phosphorus Level 4.9 mg/dl (2.5-4.9) Total Bilirubin 1.0 mg/dl (0.2-1) Aspartate Amino Transf (AST/SGOT) 268 U/L (15-37) Alanine Aminotransferase (ALT/SGPT) 184 U/L (12-78) Alkaline Phosphatase 110 U/L (45-117) Total Protein 6.7 gm/dl (6.4-8.2) Albumin 2.7 gm/dl (3.4-5.0) Globulin 4.0 gm/dl (2.5-4.0) Albumin/Globulin Ratio 0.7 (0.9-2) Amylase Level 82 U/L (25-115) Beta-Hydroxybutyric Acid 2.29 mg/dL (0.2-2.81) Hepatitis C Antibody Screen NEG (NEG) Hepatitis C Antibody NEG (NEG) Bedside Hemoglobin 10.5 g/dl (14.0-18.0) Bedside Hematocrit 31 % (42-52) Bedside Sodium 131 mEq/L (135-144) Bedside Potassium 6.7 mEq/L (3.3-5.0) Test 04/16/17 16:35 04/16/17 18:17 04/16/17 19:57 04/16/17 22:05 Blood Gas Sample Site Art Line Art Line Bedside Blood Gas pH (LAB) 7.23 (7.35-7.45) 7.31 (7.35-7.45) Bedside Blood Gas pCO2 (LAB) 42 mmHg (35-46) 32 mmHg (35-46) Bedside Blood Gas pO2 (LAB) 187 mmHg (80-95) 63 mmHg (80-95) Bedside Blood Gas HCO3 (LAB) 19 meq/L (19-24) 18 meq/L (19-24) Bedside Blood Gas Total CO2 20 mEq/l (24-31) 19 mEq/l (24-31) Bedside Blood Gas Base Excess (LAB) -10.0 meq/L (-9-1.8) -10.0 meq/L (-9-1.8) Bedside Blood Gas O2 Saturation 99.0 % (90-95) 95.0 % (90-95) Epi Test NA NA Oxygen Delivery Device Ventilator Ventilator Bedside Oxygen Rate (breaths/min) 16 20 Blood Gas Minute Ventilation 7 9.2 Bedside FiO2 70 % 50 % Blood Gas Tidal Volume 500 500 Blood Gas PEEP 10 18 Troponin I 0.169 ng/ml (0-0.045) Beta-Hydroxybutyric Acid 1.35 mg/dL (0.2-2.81) Urine Opiates Screen NEG (NEG) Urine Methadone, Qualitative NEG (NEG) Urine Barbiturates NEG (NEG) Urine Phencyclidine (PCP) Level NEG (NEG) Ur Amphetamine/Methamphetamine NEG (NEG) MDMA (Ecstasy) Screen NEG (NEG) Urine Benzodiazepines Screen NEG (NEG) Urine Cocaine Metabolite NEG (NEG) Urine Marijuana (THC) NEG (NEG) Test 04/17/17 00:02 04/17/17 00:37 04/17/17 03:37 04/17/17 04:39 Bedside Glucose (other) 104 mg/dl (70-99) 157 mg/dl (70-99) White Blood Count 7.79 K/uL (4.8-10.8) Red Blood Count 2.65 M/uL (4.7-6.1) Hemoglobin 8.4 g/dL (14.0-18.0) Hematocrit 23.5 % (42-52) Mean Corpuscular Volume 88.7 fL (80-100) Mean Corpuscular Hemoglobin 31.7 pg (25-34) Mean Corpuscular Hemoglobin Concent 35.7 g/dl (32-36) Platelet Count 166 K/uL (130-400) Mean Platelet Volume 10.5 fL (7.4-10.4) Neutrophils (%) (Auto) 85.2 % Lymphocytes (%) (Auto) 8.2 % Monocytes (%) (Auto) 6.2 % Eosinophils (%) (Auto) 0.0 % Basophils (%) (Auto) 0.0 % Neutrophils # (Auto) 6.64 K/uL (1.4-6.5) Lymphocytes # (Auto) 0.64 K/uL (1.2-3.4) Monocytes # (Auto) 0.48 K/uL (0.11-0.59) Eosinophils # (Auto) 0.00 K/uL (0-0.5) Basophils # (Auto) 0.00 K/uL (0-0.2) RDW Standard Deviation 37.6 fL (36.4-46.3) RDW Coefficient of Variation 11.6 % (11.5-14.5) Immature Granulocyte % (Auto) 0.4 % Immature Granulocyte # (Auto) 0.03 K/uL (0.00-0.02) Polychromasia 1+ Tear Drop Cells 1+ Prothrombin Time 12.0 SECONDS (9.0-12.0) Prothromb Time International Ratio 1.1 (0.9-1.1) Activated Partial Thromboplast Time 24.5 SECONDS (21.0-31.0) Partial Thromboplastin Ratio 0.9 Sodium Level 140 mmol/L (136-145) Potassium Level 4.9 mmol/L (3.5-5.1) Chloride Level 110 mmol/L (98-107) Carbon Dioxide Level 21 mmol/L (21-32) Anion Gap 9.0 mmol/L (3-11) Blood Urea Nitrogen 62 mg/dl (7-18) Creatinine 3.30 mg/dl (0.60-1.40) Est Creatinine Clear Calc Drug Dose 23.5 ml/min Estimated GFR () 21.8 Estimated GFR (Non- 18.8 BUN/Creatinine Ratio 18.9 (10-20) Random Glucose 132 mg/dl (70-99) Calcium Level 8.0 mg/dl (8.5-10.1) Ionized Calcium 1.08 mmol/l (1.12-1.32) Phosphorus Level 3.4 mg/dl (2.5-4.9) Magnesium Level 2.0 mg/dl (1.8-2.4) Total Bilirubin 0.4 mg/dl (0.2-1) Direct Bilirubin 0.2 mg/dl (0-0.2) Aspartate Amino Transf (AST/SGOT) 127 U/L (15-37) Alanine Aminotransferase (ALT/SGPT) 133 U/L (12-78) Alkaline Phosphatase 79 U/L (45-117) Troponin I 0.385 ng/ml (0-0.045) Total Protein 5.8 gm/dl (6.4-8.2) Albumin 2.5 gm/dl (3.4-5.0) Random Vancomycin Level 16.8 mcg/ml Bedside Glucose 80 mg/dl (70-99) Test 04/17/17 06:34 04/17/17 07:42 Bedside Glucose 106 mg/dl (70-99) Prothrombin Time 12.0 SECONDS (9.0-12.0) Prothromb Time International Ratio 1.1 (0.9-1.1) Activated Partial Thromboplast Time 24.3 SECONDS (21.0-31.0) Partial Thromboplastin Ratio 0.9 Sodium Level 137 mmol/L (136-145) Potassium Level 5.2 mmol/L (3.5-5.1) Chloride Level 108 mmol/L (98-107) Carbon Dioxide Level 20 mmol/L (21-32) Anion Gap 9.0 mmol/L (3-11) Blood Urea Nitrogen 65 mg/dl (7-18) Creatinine 3.30 mg/dl (0.60-1.40) Est Creatinine Clear Calc Drug Dose 23.5 ml/min Estimated GFR () 21.8 Estimated GFR (Non- 18.8 BUN/Creatinine Ratio 19.5 (10-20) Random Glucose 118 mg/dl (70-99) Calcium Level 8.4 mg/dl (8.5-10.1) Ionized Calcium 1.05 mmol/l (1.12-1.32) Magnesium Level 1.9 mg/dl (1.8-2.4) Micro Results: Item Value Date Time Blood Culture Received 04/16/17 1539 Blood Pending Blood Culture Received 04/16/17 1350 Blood Pending MRSA DNA Surveillance Screen - Final Complete 04/16/17 1237 Nasal Specimen Negative for MRSA by DNA Probe Assessment & Plan Patient started on vancomycin, aztreonam, and levaquin for possible pna/sepsis. BC x 2 are pending. Vancomycin: * LD of vancomycin 1500 mg (~21mg/kg) given last evening * Random level this am was ~16.8 mcg/ml (goal 15-20 mcg/ml for pna/sepsis) * Will start MD of vancomycin 1000 mg (~14mg/kg) q24 hr ; anticipate Scr to improve * Estimated kinetics: t1/2~28 hrs, ke~0.024, CrCl ~23 ml/min * Will order a trough prior to the 1000 dose on 04/19 to ensure therapeutic ( note this will be before steady state) Levaquin: * 750 mg iv q 48 hrs - appropriate for CrCl 20-49 ml/min Azactam: * 1 gm iv q 8 hrs - CrCl 10-30 ml/min, recommended to reduce dose by 50% ( target dose 2 gm iv q 8 hr) Pharmacy will continue to follow and will adjust dose/frequency as necessary. Thank you
--- NOTE | 2017-04-17 10:13 | Critical Care Progress Note ---
Critical Care Progress Note Date of Service Apr 17, 2017. Attending Dr. Tobin Subjective 61 yo female to male transgender with HIV on HAART admitted with complete heart block. We placed a temporary transvenous pacemaker while administering dopamine and atropine until the pacemaker captured. This was complicated with some extravasation and skin necrosis on the right forearm. finance manager, Dr Ward, took the patient to lab scientist and repositioned her pacer with good capture. 2 D echo showed trace pericardial effusion. Will repeat limited echo today. troponin rising 0.36 but considering multiple ACLS protocols run and Cr 3.3 it is unlikely this is NSTEMI but rather due to CPR and demand ischemia with decreased renal clearance. At bedside she is awake responds adequately to verbal stimuli. Moves all 4 extremities and cooperated with attempts of SBT which is ongoing. Denies complaints of pain or SOB but is tender in the right forearm. Urine output picked up AND Is out of the oliguric range. (0.53 ml/hr-Kg BW so far) Objective HENT no JVD no LN ET tube in place but she is ready to be extubated. Temporary pacemaker in the R IJ lungs b/l CTA heart reg S1 S2 no murmurs. She is at 72/min abdomen soft non tender BS heard extremities 7x5 cm area of skin necrosis on the dorsum of the right hand. Nitropaste on top. no pedal edema; shackles on 2 limbs; A line in right radial area no hematoma. neurologic no focal motor deficits A A Ox3. answers appropriately Current SOFA Score SOFA Score Response (Comments) Value PaO2/FiO2 (mmHg) < 400 1 SaO2 / FIO2 221 - 301 1 Platelets (x10) > 150 0 Bilirubin (mg/dL) < 1.2 0 Selene Coma Score 15 0 Level of Hypotension No Hypotension 0 Creatinine (mg/dL) 2.0 - 3.4 2 Total 4 Previous SOFA Scores NA Assessment & Plan 61 yo transgender female patient who is admitted with recurrent asystole. known to have HIV, HTN and above medical comorbidities. The patient has had a similar episode in 2016 ma. Back then it was blamed on cardizem and the medication was stopped with resolution of symptoms. She was not given a permanent pacemaker. At this time it may very well be a sick sinus syndrome She received a pacemaker and is now having salamatof NSR >70/min. Tox screen so far negative no sedatives no pressors on board PPM 10 mA rate 70/min VVI in place appreciate cardiology input trend troponin until it peaks daily ECG Pacemaker implantation in am Respiratory Off MV on O2 NC Will get ABG Will get CXR GI pantoprazole for GI prophylaxis advanced diet to heart healthy 2 gm Na and DM lipase increased. ID No foci of infection hold vancomycin and levaquin for possible sepsis. doses adjusted by pharmacy for renal clearance procalcitonin level 0.11. Since she is going for a pacemaker implantation Will keep vancomycin and will complete a levaquin course renal She has a UO of 1.49 ml/Kg BW This may be the polyuric phase of ATN recovery. Will check urine Na and I creatinine to decide on fluid resuscitation or not FU and replete lytes K slightly elevated at 5.2 insulin drip to control sugar 140-180 heparin SC 5000 DVT prophylaxis hold antiretrovirals until awake and lipase normalized. COnsider ID consult FU lipase appreciate GI input. appreciate cardiology help needs velazquez catheter pacemaker patient is critically ill and I spent a total of 50 minutes of CC time managing her today exclusive of procedural time Consults & Procedures Consultants: cardiology Procedures: pacemaker insertion R IJ VVI transvenoue intubated arctic protocol R Radial A line velazquez Data Medications: Current Inpatient Medications Medications (Trade) Dose Ordered Sig/Carlin Route Start Time Stop Time Status Last Admin Dose Admin Aztreonam 1000 mg/ Dextrose 110 ml @ 100 mls/hr Q8H IV 04/16/17 14:00 04/23/17 13:59 04/17/17 06:04 100 MLS/HR Miscellaneous Information (Consult Glycemic Management Pharmacy) 1 ea UD PRN N/A 04/16/17 15:00 05/16/17 14:59 Norepinephrine Bitartrate 8 mg/ Dextrose 508 ml @ 0 mls/hr Q0M PRN IV 04/16/17 16:30 05/16/17 16:29 04/16/17 17:07 2.7 MLS/HR Pantoprazole Sodium 40 mg/ Syringe 10 ml @ 5 mls/min DAILY@11 IV 04/16/17 18:00 05/16/17 17:59 04/16/17 17:28 5 MLS/MIN Vancomycin HCl (Consult) 1 ea UD PRN N/A 04/16/17 17:15 05/16/17 17:14 Aztreonam (Consult) 1 ea UD PRN N/A 04/16/17 17:15 05/16/17 17:14 Levofloxacin (Consult) 1 ea UD PRN N/A 04/16/17 17:15 05/16/17 17:14 Nitroglycerin (Nitroglycerin 2% Oint) 2 inch Q6H EXT 04/16/17 19:30 05/16/17 19:29 04/17/17 07:53 2 INCH Midazolam HCl (Versed Inj) 2 mg Q1H PRN IV 04/16/17 23:45 05/16/17 23:44 Propofol (Diprivan Iv Emulsion 100ml Vial) 1 dose UD IV 04/16/17 23:45 04/19/17 23:44 04/17/17 00:06 1 DOSE Heparin Sodium (Porcine) (Heparin 10 Unit/ ml 5 ml Flush) 5 ml PRN PRN FLUSH 04/17/17 00:30 05/17/17 00:29 Insulin Aspart (novoLOG ASPART) SLIDING SCALE If C... ACHS SC 04/17/17 06:45 05/17/17 06:44 Glucose (Glucose 40% Gel) UD PRN PO 04/17/17 05:00 05/17/17 04:59 Glucose (Glucose Chew Tab) 1 tabs UD PRN PO 04/17/17 05:00 05/17/17 04:59 Dextrose (Dextrose 50% 50ML Syringe) 50 ml UD PRN IV 04/17/17 05:00 05/17/17 04:59 Glucagon (Glucagon Inj) 1 mg UD PRN SQ 04/17/17 05:00 05/17/17 04:59 Levofloxacin 750 mg/Prmx 100 ml @ 100 mls/hr Q2D@1800 IV 04/18/17 18:00 04/23/17 17:59 Vancomycin HCl 1000 mg/Sodium Chloride 270 ml @ 125 mls/hr Q24H IV 04/17/17 10:00 04/23/17 09:59 Vital Signs: Date Time Temp Pulse Resp B/P (MAP) Pulse Ox O2 Delivery O2 Flow Rate FiO2 04/17/17 08:00 50 04/17/17 08:00 97 Mechanical Ventilator 50 04/17/17 08:00 37.4 70 20 108/70 (83) 98 137/53 (81) 04/17/17 07:20 50 04/17/17 06:15 37.0 70 20 124/64 (79) 97 129/54 (73) 04/17/17 06:00 36.9 70 24 128/68 (75) 98 132/56 (75) 04/17/17 05:45 36.8 70 18 115/70 (79) 97 126/53 (67) 04/17/17 05:30 36.7 70 19 124/75 (87) 97 129/59 (78) 04/17/17 05:17 50 04/17/17 05:15 36.7 71 22 121/69 (76) 98 129/57 (74) 04/17/17 05:00 36.7 70 25 121/63 (86) 97 132/58 (77) 04/17/17 04:52 36.7 70 14 137/67 (85) 97 138/65 (88) 04/17/17 04:30 36.6 70 16 120/68 (80) 99 138/60 (81) 04/17/17 04:15 36.5 70 24 125/75 (82) 99 143/62 (81) 04/17/17 04:00 36.4 70 25 123/74 (85) 98 150/65 (84) 04/17/17 04:00 99 Mechanical Ventilator 50 04/17/17 04:00 50 04/17/17 03:45 36.3 70 22 112/67 (74) 99 125/58 (74) 04/17/17 03:30 36.3 72 20 98/70 (76) 97 118/55 (72) 04/17/17 03:15 36.3 70 22 114/65 (70) 98 119/54 (72) 04/17/17 03:00 36.2 70 23 121/72 (77) 98 132/58 (73) 04/17/17 02:45 36.1 71 21 107/68 (73) 98 122/55 (72) 04/17/17 02:30 36.0 70 24 124/67 (75) 99 127/57 (79) 04/17/17 02:15 35.9 70 21 118/74 (78) 98 133/59 (78) 04/17/17 02:00 35.8 70 17 139/69 (69) 95 99/58 (65) 04/17/17 01:50 50 04/17/17 01:45 35.7 70 23 121/72 (82) 95 139/61 (82) 04/17/17 01:30 35.5 70 22 122/69 (78) 131/59 (78) 04/17/17 01:15 35.4 70 26 122/71 (82) 97 142/61 (83) 04/17/17 01:00 35.2 69 24 119/72 (79) 98 135/60 (80) 04/17/17 00:45 35.1 70 20 126/71 (81) 98 142/60 (82) 04/17/17 00:30 35.0 70 22 125/71 (85) 168/61 (82) 04/17/17 00:15 34.8 69 36 138/66 (75) 94 132/57 (78) 04/17/17 00:01 99 Mechanical Ventilator 50 04/17/17 00:01 50 04/17/17 00:00 34.7 70 18 131/71 (80) 139/59 (81) 04/16/17 23:45 34.6 69 16 131/73 (81) 97 143/59 (81) 04/16/17 23:30 34.4 70 23 126/72 (81) 98 146/60 (82) 04/16/17 23:15 34.2 70 14 124/70 (78) 97 142/57 (80) 04/16/17 23:00 33.9 70 16 132/74 (91) 146/59 (81) 04/16/17 22:45 33.5 69 23 121/68 (78) 96 133/57 (78) 04/16/17 22:30 33.2 70 13 118/73 (74) 97 124/55 (76) 04/16/17 22:15 32.9 69 22 125/66 (75) 97 123/55 (75) 04/16/17 22:10 50 04/16/17 22:01 32.5 70 29 127/61 (73) 96 113/54 (75) 04/16/17 21:45 32.2 70 25 114/68 (76) 98 108/57 (73) 04/16/17 21:30 31.9 70 23 115/66 (93) 103/56 (72) 04/16/17 21:15 31.6 70 24 127/74 (76) 94 108/56 (82) 04/16/17 21:10 31.5 70 27 116/66 (88) 120/56 (72) 04/16/17 21:00 31.3 69 24 130/70 (91) 89 109/59 (77) 04/16/17 20:45 31.1 70 23 130/71 (81) 96 111/61 (82) 04/16/17 20:36 50 04/16/17 20:30 31.0 70 20 116/66 (77) 99 111/57 (77) 04/16/17 20:15 30.9 69 21 116/67 (78) 97 112/58 (78) 04/16/17 20:00 50 04/16/17 20:00 99 Mechanical Ventilator 50 04/16/17 20:00 30.8 70 21 118/68 (76) 99 103/56 (75) 04/16/17 19:45 30.8 69 21 126/71 (82) 100 106/64 (83) 04/16/17 19:30 30.7 69 36 117/69 (82) 100 113/62 (82) 04/16/17 19:15 30.7 66 32 116/70 (83) 100 114/63 (83) 04/16/17 19:00 30.6 70 22 127/70 (85) 100 119/65 (86) 04/16/17 18:30 30.6 69 20 124/74 (86) 98 123/65 04/16/17 18:20 50 04/16/17 18:00 30.6 70 20 128/73 (86) 132/64 04/16/17 17:45 30.7 70 22 144/78 (85) 97 110/66 04/16/17 17:15 30.8 70 20 127/73 (84) 04/16/17 16:47 50 04/16/17 16:45 30.9 70 20 (64) 95 74/55 04/16/17 16:15 31.0 71 16 (72) 90 85/63 04/16/17 16:00 100 Mechanical Ventilator 70 04/16/17 15:50 70 04/16/17 15:50 31.2 70 18 (62) 99 75/52 04/16/17 15:30 100 04/16/17 15:02 61 16 143/64 70 Mechanical Ventilator 94 04/16/17 14:10 50 04/16/17 14:00 70 16 133/71 (87) 98 04/16/17 13:06 110/55 (73) 04/16/17 13:00 33 100 04/16/17 12:54 45 143/64 (90) 04/16/17 12:35 52 100 04/16/17 12:34 53 154/68 (96) 04/16/17 12:32 42 14 135/64 (87) 100 Mechanical Ventilator 40 04/16/17 11:55 77 12 167/70 96 04/16/17 11:50 77 12 04/16/17 11:39 121/57 04/16/17 11:36 122/59 04/16/17 11:35 43 12 100 04/16/17 11:34 123/58 04/16/17 11:32 122/59 04/16/17 11:30 45 12 120/59 100 04/16/17 11:28 123/61 04/16/17 11:26 118/60 04/16/17 11:25 46 12 100 04/16/17 11:24 123/61 04/16/17 11:20 48 12 100 04/16/17 11:19 124/55 04/16/17 11:16 125/61 04/16/17 11:15 48 12 100 04/16/17 11:14 125/62 04/16/17 11:12 132/64 04/16/17 11:10 50 12 131/60 100 04/16/17 11:05 55 12 100 Mechanical Ventilator 100 04/16/17 11:04 149/68 04/16/17 11:02 177/75 04/16/17 11:01 223/91 04/16/17 11:00 88 12 100 04/16/17 10:58 122/85 04/16/17 10:56 117/62 04/16/17 10:55 40 12 130/63 100 04/16/17 10:54 129/59 04/16/17 10:52 126/61 04/16/17 10:50 40 12 128/61 100 04/16/17 10:48 127/61 04/16/17 10:46 130/61 04/16/17 10:45 43 12 100 04/16/17 10:44 140/64 04/16/17 10:42 126/65 04/16/17 10:40 43 7 120/71 100 04/16/17 10:35 0 04/16/17 10:30 0 04/16/17 10:25 0 04/16/17 10:22 141/63 04/16/17 10:20 48 12 100 04/16/17 10:19 47 04/16/17 10:15 59 100 04/16/17 10:12 227/90 04/16/17 10:11 88 04/16/17 10:10 94 200/113 88 04/16/17 10:08 89 04/16/17 10:08 200/113 04/16/17 10:07 104 04/16/17 10:06 82 04/16/17 10:04 36.4 0 0 137/116 94 Ambu-Bag 100 04/16/17 10:04 97 04/16/17 10:00 100 Laboratory Results: Last 24 Hours Test 04/16/17 10:10 04/16/17 10:14 04/16/17 10:16 04/16/17 10:22 White Blood Count K/uL Red Blood Count M/uL Hemoglobin g/dL Hematocrit % Mean Corpuscular Volume fL Mean Corpuscular Hemoglobin pg Mean Corpuscular Hemoglobin Concent g/dl Platelet Count K/uL Mean Platelet Volume fL RDW Standard Deviation fL RDW Coefficient of Variation % Sodium Level mmol/L Potassium Level mmol/L Chloride Level mmol/L Carbon Dioxide Level mmol/L Anion Gap mmol/L 18.0 mmol/L Blood Urea Nitrogen mg/dl Creatinine mg/dl Estimated GFR () Estimated GFR (Non- BUN/Creatinine Ratio Random Glucose mg/dl Calcium Level mg/dl Total Bilirubin mg/dl Direct Bilirubin mg/dl Aspartate Amino Transf (AST/SGOT) U/L Alanine Aminotransferase (ALT/SGPT) U/L Alkaline Phosphatase U/L Total Creatine Kinase U/L Creatine Kinase MB ng/ml Creatine Kinase MB Ratio Troponin I ng/ml Pro-B-Type Natriuretic Peptide pg/ml Total Protein gm/dl Albumin gm/dl Lipase U/L Procalcitonin 0.10 ng/ml Bedside Glucose 215 mg/dl Bedside Hemoglobin 9.5 g/dl Bedside Hematocrit 28 % Bedside Sodium 141 mEq/L Bedside Potassium 3.9 mEq/L Bedside Chloride 115 mEq/L Bedside Total CO2 14 mEq/l Bedside Blood Urea Nitrogen 40 mg/dl Bedside Creatinine 2.5 mg/dl Bedside Glucose (other) 212 mg/dl Bedside Ionized Calcium (Raffy) 0.96 mmol/l Bedside Lactic Acid Venous 3.19 mmol/L Test 04/16/17 11:25 04/16/17 12:37 04/16/17 12:44 04/16/17 13:50 White Blood Count 10.57 K/uL Red Blood Count 3.28 M/uL Hemoglobin 9.9 g/dL Hematocrit 30.3 % Mean Corpuscular Volume 92.4 fL Mean Corpuscular Hemoglobin 30.2 pg Mean Corpuscular Hemoglobin Concent 32.7 g/dl Platelet Count 228 K/uL Mean Platelet Volume 10.7 fL Neutrophils (%) (Auto) 71.9 % Lymphocytes (%) (Auto) 21.6 % Monocytes (%) (Auto) 5.3 % Eosinophils (%) (Auto) 0.4 % Basophils (%) (Auto) 0.2 % Neutrophils # (Auto) 7.61 K/uL Lymphocytes # (Auto) 2.28 K/uL Monocytes # (Auto) 0.56 K/uL Eosinophils # (Auto) 0.04 K/uL Basophils # (Auto) 0.02 K/uL RDW Standard Deviation 38.7 fL RDW Coefficient of Variation 11.5 % Immature Granulocyte % (Auto) 0.6 % Immature Granulocyte # (Auto) 0.06 K/uL Prothrombin Time 11.4 SECONDS 11.1 SECONDS Prothromb Time International Ratio 1.1 1.0 Activated Partial Thromboplast Time 24.0 SECONDS 22.0 SECONDS Partial Thromboplastin Ratio 0.9 0.8 Sodium Level 133 mmol/L Potassium Level 5.2 mmol/L Chloride Level 107 mmol/L Carbon Dioxide Level 18 mmol/L Anion Gap 8.0 mmol/L Blood Urea Nitrogen 55 mg/dl Creatinine 3.20 mg/dl Estimated GFR () 22.7 Estimated GFR (Non- 19.5 BUN/Creatinine Ratio 17.2 Random Glucose 263 mg/dl Calcium Level 7.4 mg/dl Total Bilirubin 0.7 mg/dl Direct Bilirubin 0.4 mg/dl Aspartate Amino Transf (AST/SGOT) 166 U/L Alanine Aminotransferase (ALT/SGPT) 122 U/L Alkaline Phosphatase 93 U/L Total Creatine Kinase 96 U/L Creatine Kinase MB 0.7 ng/ml Creatine Kinase MB Ratio 0.7 Troponin I 0.028 ng/ml Total Protein 6.4 gm/dl Albumin 2.7 gm/dl Lipase 600 U/L Stool Occult Blood NEGATIVE Bedside Glucose 276 mg/dl Ionized Calcium 1.19 mmol/l Test 04/16/17 14:01 04/16/17 14:21 04/16/17 15:43 04/16/17 15:51 White Blood Count 16.42 K/uL Red Blood Count 3.27 M/uL Hemoglobin 10.4 g/dL Hematocrit 29.9 % Mean Corpuscular Volume 91.4 fL Mean Corpuscular Hemoglobin 31.8 pg Mean Corpuscular Hemoglobin Concent 34.8 g/dl RDW Standard Deviation 38.2 fL RDW Coefficient of Variation 11.6 % Platelet Count 232 K/uL Mean Platelet Volume 11.2 fL Sodium Level 134 mmol/L Potassium Level 6.4 mmol/L Chloride Level 107 mmol/L Carbon Dioxide Level 21 mmol/L Anion Gap 5.0 mmol/L Blood Urea Nitrogen 57 mg/dl Creatinine 3.30 mg/dl Estimated GFR () 21.8 Estimated GFR (Non- 18.8 BUN/Creatinine Ratio 17.3 Random Glucose 356 mg/dl Calcium Level 8.1 mg/dl Phosphorus Level 4.9 mg/dl Magnesium Level 2.6 mg/dl Total Bilirubin 1.0 mg/dl Aspartate Amino Transf (AST/SGOT) 268 U/L Alanine Aminotransferase (ALT/SGPT) 184 U/L Alkaline Phosphatase 110 U/L Troponin I 0.078 ng/ml Total Protein 6.7 gm/dl Albumin 2.7 gm/dl Globulin 4.0 gm/dl Albumin/Globulin Ratio 0.7 Amylase Level 82 U/L Beta-Hydroxybutyric Acid 2.29 mg/dL Hepatitis C Antibody Screen NEG Hepatitis C Antibody NEG Blood Gas Sample Site Art Line Bedside Blood Gas pH (LAB) 7.21 Bedside Blood Gas pCO2 (LAB) 46 mmHg Bedside Blood Gas pO2 (LAB) 155 mmHg Bedside Blood Gas HCO3 (LAB) 20 meq/L Bedside Blood Gas Total CO2 22 mEq/l Bedside Blood Gas Base Excess (LAB) -9.0 meq/L Bedside Blood Gas O2 Saturation 99.0 % Epi Test NA Oxygen Delivery Device Ventilator Bedside Oxygen Rate (breaths/min) 12 Blood Gas Minute Ventilation 5.3 Bedside FiO2 100 % Blood Gas Tidal Volume 500 Blood Gas PEEP 10 Bedside Glucose (other) 393 mg/dl Test 04/16/17 16:25 04/16/17 16:35 04/16/17 17:19 04/16/17 17:52 Bedside Hemoglobin 10.5 g/dl Bedside Hematocrit 31 % Bedside Blood Gas pH (LAB) 7.16 7.23 Bedside Blood Gas pCO2 (LAB) 53 mmHg 42 mmHg Bedside Blood Gas pO2 (LAB) 209 mmHg 187 mmHg Bedside Blood Gas HCO3 (LAB) 19 meq/L 19 meq/L Bedside Blood Gas Total CO2 20 mEq/l 20 mEq/l Bedside Blood Gas Base Excess (LAB) -10.0 meq/L -10.0 meq/L Bedside Blood Gas O2 Saturation 99.0 % 99.0 % Bedside Sodium 131 mEq/L Bedside Potassium 6.7 mEq/L Blood Gas Sample Site Art Line Epi Test NA Oxygen Delivery Device Ventilator Bedside Oxygen Rate (breaths/min) 16 Blood Gas Minute Ventilation 7 Bedside FiO2 70 % Blood Gas Tidal Volume 500 Blood Gas PEEP 10 Bedside Glucose (other) 379 mg/dl Potassium Level 5.7 mmol/L Ionized Calcium 1.03 mmol/l Test 04/16/17 18:03 04/16/17 18:17 04/16/17 19:07 04/16/17 19:57 Bedside Glucose 345 mg/dl Blood Gas Sample Site Art Line Bedside Blood Gas pH (LAB) 7.31 Bedside Blood Gas pCO2 (LAB) 32 mmHg Bedside Blood Gas pO2 (LAB) 63 mmHg Bedside Blood Gas HCO3 (LAB) 18 meq/L Bedside Blood Gas Total CO2 19 mEq/l Bedside Blood Gas Base Excess (LAB) -10.0 meq/L Bedside Blood Gas O2 Saturation 95.0 % Epi Test NA Oxygen Delivery Device Ventilator Bedside Oxygen Rate (breaths/min) 20 Blood Gas Minute Ventilation 9.2 Bedside FiO2 50 % Blood Gas Tidal Volume 500 Blood Gas PEEP 18 Bedside Glucose (other) 361 mg/dl Prothrombin Time 11.7 SECONDS Prothromb Time International Ratio 1.1 Activated Partial Thromboplast Time 25.0 SECONDS Partial Thromboplastin Ratio 1.0 Sodium Level 135 mmol/L Potassium Level 5.1 mmol/L Chloride Level 106 mmol/L Carbon Dioxide Level 17 mmol/L Anion Gap 12.0 mmol/L Blood Urea Nitrogen 62 mg/dl Creatinine 3.60 mg/dl Est Creatinine Clear Calc Drug Dose 21.5 ml/min Estimated GFR () 19.6 Estimated GFR (Non- 16.9 BUN/Creatinine Ratio 17.3 Random Glucose 321 mg/dl Calcium Level 8.2 mg/dl Ionized Calcium 1.07 mmol/l Magnesium Level 2.4 mg/dl Troponin I 0.169 ng/ml Beta-Hydroxybutyric Acid 1.35 mg/dL Test 04/16/17 20:16 04/16/17 21:14 04/16/17 22:05 04/16/17 22:07 Bedside Glucose (other) 317 mg/dl 279 mg/dl 227 mg/dl Urine Opiates Screen NEG Urine Methadone, Qualitative NEG Urine Barbiturates NEG Urine Phencyclidine (PCP) Level NEG Ur Amphetamine/Methamphetamine NEG MDMA (Ecstasy) Screen NEG Urine Benzodiazepines Screen NEG Urine Cocaine Metabolite NEG Urine Marijuana (THC) NEG Test 04/16/17 23:02 04/16/17 23:53 04/17/17 00:02 04/17/17 00:37 Bedside Glucose (other) 147 mg/dl 104 mg/dl 157 mg/dl Prothrombin Time 11.8 SECONDS Prothromb Time International Ratio 1.1 Activated Partial Thromboplast Time 24.7 SECONDS Partial Thromboplastin Ratio 1.0 Sodium Level 140 mmol/L Potassium Level 4.8 mmol/L Chloride Level 110 mmol/L Carbon Dioxide Level 19 mmol/L Anion Gap 11.0 mmol/L Blood Urea Nitrogen 60 mg/dl Creatinine 3.60 mg/dl Est Creatinine Clear Calc Drug Dose 21.5 ml/min Estimated GFR () 19.6 Estimated GFR (Non- 16.9 BUN/Creatinine Ratio 16.6 Random Glucose 105 mg/dl Calcium Level 8.1 mg/dl Ionized Calcium 1.07 mmol/l Magnesium Level 2.3 mg/dl Test 04/17/17 01:22 04/17/17 01:46 04/17/17 02:13 04/17/17 03:19 Bedside Glucose 108 mg/dl 83 mg/dl 198 mg/dl 88 mg/dl Test 04/17/17 03:37 04/17/17 03:38 04/17/17 04:39 04/17/17 06:34 White Blood Count 7.79 K/uL Red Blood Count 2.65 M/uL Hemoglobin 8.4 g/dL Hematocrit 23.5 % Mean Corpuscular Volume 88.7 fL Mean Corpuscular Hemoglobin 31.7 pg Mean Corpuscular Hemoglobin Concent 35.7 g/dl Platelet Count 166 K/uL Mean Platelet Volume 10.5 fL Neutrophils (%) (Auto) 85.2 % Lymphocytes (%) (Auto) 8.2 % Monocytes (%) (Auto) 6.2 % Eosinophils (%) (Auto) 0.0 % Basophils (%) (Auto) 0.0 % Neutrophils # (Auto) 6.64 K/uL Lymphocytes # (Auto) 0.64 K/uL Monocytes # (Auto) 0.48 K/uL Eosinophils # (Auto) 0.00 K/uL Basophils # (Auto) 0.00 K/uL RDW Standard Deviation 37.6 fL RDW Coefficient of Variation 11.6 % Immature Granulocyte % (Auto) 0.4 % Immature Granulocyte # (Auto) 0.03 K/uL Polychromasia 1+ Tear Drop Cells 1+ Prothrombin Time 12.0 SECONDS Prothromb Time International Ratio 1.1 Activated Partial Thromboplast Time 24.5 SECONDS Partial Thromboplastin Ratio 0.9 Sodium Level 140 mmol/L Potassium Level 4.9 mmol/L Chloride Level 110 mmol/L Carbon Dioxide Level 21 mmol/L Anion Gap 9.0 mmol/L Blood Urea Nitrogen 62 mg/dl Creatinine 3.30 mg/dl Est Creatinine Clear Calc Drug Dose 23.5 ml/min Estimated GFR () 21.8 Estimated GFR (Non- 18.8 BUN/Creatinine Ratio 18.9 Random Glucose 132 mg/dl Calcium Level 8.0 mg/dl Ionized Calcium 1.08 mmol/l Phosphorus Level 3.4 mg/dl Magnesium Level 2.0 mg/dl Total Bilirubin 0.4 mg/dl Direct Bilirubin 0.2 mg/dl Aspartate Amino Transf (AST/SGOT) 127 U/L Alanine Aminotransferase (ALT/SGPT) 133 U/L Alkaline Phosphatase 79 U/L Troponin I 0.385 ng/ml Total Protein 5.8 gm/dl Albumin 2.5 gm/dl Random Vancomycin Level 16.8 mcg/ml Bedside Glucose 145 mg/dl 80 mg/dl 106 mg/dl Test 04/17/17 07:42 Prothrombin Time 12.0 SECONDS Prothromb Time International Ratio 1.1 Activated Partial Thromboplast Time 24.3 SECONDS Partial Thromboplastin Ratio 0.9 Sodium Level 137 mmol/L Potassium Level 5.2 mmol/L Chloride Level 108 mmol/L Carbon Dioxide Level 20 mmol/L Anion Gap 9.0 mmol/L Blood Urea Nitrogen 65 mg/dl Creatinine 3.30 mg/dl Est Creatinine Clear Calc Drug Dose 23.5 ml/min Estimated GFR () 21.8 Estimated GFR (Non- 18.8 BUN/Creatinine Ratio 19.5 Random Glucose 118 mg/dl Calcium Level 8.4 mg/dl Ionized Calcium 1.05 mmol/l Magnesium Level 1.9 mg/dl
[2017-04-17] MEDS: VANCOMYCIN INJ 1,000 MG in SODIUM CHLORIDE 0.9% 250ML 250 ML IV SCH (10:29)
[2017-04-17] MEDS: PANTOprazole INJ 40 MG in SYRINGE 0 ML IV SCH ×2 (10:30→10:32)
[2017-04-17] MEDS ORDERED: MAGNESIUM SULFATE 1GM / D5W 1 GM in PREMIXED IN D5W 100 ML IV ONE (10:30)
[2017-04-17] MEDS ORDERED: CALCIUM GLUCONATE 10% 1,000 MG in SODIUM CHLORIDE 0.9% 50ML 50 ML IV ONE (10:30)
[2017-04-17 10:42] LABS: ISTAT ARTERIAL BLOOD GAS HCO3 19 meq/L (19-24); ISTAT ARTERIAL BLOOD GAS PCO2 29 mmHg (35-46); ISTAT ARTERIAL BLOOD GAS PO2 67 mmHg (80-95); ISTAT ARTERIAL BLOOD GAS pH 7.44 (7.35-7.45); ISTAT CARBON DIOXIDE 20 mEq/l (24-31); ISTAT DELIVERY SYSTEM Ventilator; ISTAT FIO2 40 %; ISTAT PEEP 5; ISTAT SITE Art Line
[2017-04-17 11:18] LABS: INR 1.1 (0.9-1.1)
[2017-04-17 11:33] LABS: BUN/CREATININE RATIO 17.9 (10-20); CREATININE 3.4 mg/dl (0.60-1.40); MAGNESIUM 1.9 mg/dl (1.8-2.4); POTASSIUM 4.8 mmol/L (3.5-5.1)
[2017-04-17] MEDS ORDERED: HydrALAZINE HCL 20 MG/ML VIAL IV. PRN (11:45)
--- NOTE | 2017-04-17 11:53 | Cardiology Follow-Up ---
Subjective Date of Service: Apr 17, 2017. Pt evaluation today including: conversation w/ patient, physical exam, lab review, review of studies, review of inpatient medication list, conversation w/ attending History of Present Illness Events of her presentation reviewed. She had clear documentation of atrial asystole, no evidence of heart block although she does have conduction abnormalities. She is now extubated and conversational, with no specific cardiovascular complaints. Social History Smoking Status: Current Every Day Smoker History of Alcohol Use: No Review of Systems Respiratory: No shortness of breath Cardiac: No chest pain Objective Vital Signs Past 12 Hours Date Time Temp Pulse Resp B/P (MAP) Pulse Ox O2 Delivery O2 Flow Rate FiO2 04/17/17 10:45 37.4 70 20 147/63 (91) 98 155/52 (86) 04/17/17 08:00 50 04/17/17 08:00 97 Mechanical Ventilator 50 04/17/17 08:00 37.4 70 20 108/70 (83) 98 137/53 (81) 04/17/17 07:20 50 04/17/17 06:15 37.0 70 20 124/64 (79) 97 129/54 (73) 04/17/17 06:00 36.9 70 24 128/68 (75) 98 132/56 (75) 04/17/17 05:45 36.8 70 18 115/70 (79) 97 126/53 (67) 04/17/17 05:30 36.7 70 19 124/75 (87) 97 129/59 (78) 04/17/17 05:17 50 04/17/17 05:15 36.7 71 22 121/69 (76) 98 129/57 (74) 04/17/17 05:00 36.7 70 25 121/63 (86) 97 132/58 (77) 04/17/17 04:52 36.7 70 14 137/67 (85) 97 138/65 (88) 04/17/17 04:30 36.6 70 16 120/68 (80) 99 138/60 (81) 04/17/17 04:15 36.5 70 24 125/75 (82) 99 143/62 (81) 04/17/17 04:00 36.4 70 25 123/74 (85) 98 150/65 (84) 04/17/17 04:00 99 Mechanical Ventilator 50 04/17/17 04:00 50 04/17/17 03:45 36.3 70 22 112/67 (74) 99 125/58 (74) 04/17/17 03:30 36.3 72 20 98/70 (76) 97 118/55 (72) 04/17/17 03:15 36.3 70 22 114/65 (70) 98 119/54 (72) 04/17/17 03:00 36.2 70 23 121/72 (77) 98 132/58 (73) 04/17/17 02:45 36.1 71 21 107/68 (73) 98 122/55 (72) 04/17/17 02:30 36.0 70 24 124/67 (75) 99 127/57 (79) 04/17/17 02:15 35.9 70 21 118/74 (78) 98 133/59 (78) 04/17/17 02:00 35.8 70 17 139/69 (69) 95 99/58 (65) 04/17/17 01:50 50 04/17/17 01:45 35.7 70 23 121/72 (82) 95 139/61 (82) 04/17/17 01:30 35.5 70 22 122/69 (78) 131/59 (78) 04/17/17 01:15 35.4 70 26 122/71 (82) 97 142/61 (83) 04/17/17 01:00 35.2 69 24 119/72 (79) 98 135/60 (80) 04/17/17 00:45 35.1 70 20 126/71 (81) 98 142/60 (82) 04/17/17 00:30 35.0 70 22 125/71 (85) 168/61 (82) 04/17/17 00:15 34.8 69 36 138/66 (75) 94 132/57 (78) 04/17/17 00:01 99 Mechanical Ventilator 50 04/17/17 00:01 50 04/17/17 00:00 34.7 70 18 131/71 (80) 139/59 (81) Last Recorded Weight-Kilograms: 72.400 Physical Exam Constitutional: Level of Distress: NAD Lungs: Auscultation: breath sounds normal Cardiovascular: Heart Auscultation: RRR, no murmurs, no rubs Extremities: no edema Data Laboratory Results: Last 24 Hours Test 04/16/17 12:37 04/16/17 12:44 04/16/17 13:50 04/16/17 14:01 Stool Occult Blood NEGATIVE Bedside Glucose 276 mg/dl Prothrombin Time 11.1 SECONDS Prothromb Time International Ratio 1.0 Activated Partial Thromboplast Time 22.0 SECONDS Partial Thromboplastin Ratio 0.8 Ionized Calcium 1.19 mmol/l White Blood Count 16.42 K/uL Red Blood Count 3.27 M/uL Hemoglobin 10.4 g/dL Hematocrit 29.9 % Mean Corpuscular Volume 91.4 fL Mean Corpuscular Hemoglobin 31.8 pg Mean Corpuscular Hemoglobin Concent 34.8 g/dl RDW Standard Deviation 38.2 fL RDW Coefficient of Variation 11.6 % Platelet Count 232 K/uL Mean Platelet Volume 11.2 fL Sodium Level 134 mmol/L Potassium Level 6.4 mmol/L Chloride Level 107 mmol/L Carbon Dioxide Level 21 mmol/L Anion Gap 5.0 mmol/L Blood Urea Nitrogen 57 mg/dl Creatinine 3.30 mg/dl Estimated GFR () 21.8 Estimated GFR (Non- 18.8 BUN/Creatinine Ratio 17.3 Random Glucose 356 mg/dl Calcium Level 8.1 mg/dl Phosphorus Level 4.9 mg/dl Magnesium Level 2.6 mg/dl Total Bilirubin 1.0 mg/dl Aspartate Amino Transf (AST/SGOT) 268 U/L Alanine Aminotransferase (ALT/SGPT) 184 U/L Alkaline Phosphatase 110 U/L Troponin I 0.078 ng/ml Total Protein 6.7 gm/dl Albumin 2.7 gm/dl Globulin 4.0 gm/dl Albumin/Globulin Ratio 0.7 Amylase Level 82 U/L Beta-Hydroxybutyric Acid 2.29 mg/dL Hepatitis C Antibody Screen NEG Hepatitis C Antibody NEG Test 04/16/17 14:21 04/16/17 15:43 04/16/17 15:51 04/16/17 16:25 Blood Gas Sample Site Art Line Bedside Blood Gas pH (LAB) 7.21 7.16 Bedside Blood Gas pCO2 (LAB) 46 mmHg 53 mmHg Bedside Blood Gas pO2 (LAB) 155 mmHg 209 mmHg Bedside Blood Gas HCO3 (LAB) 20 meq/L 19 meq/L Bedside Blood Gas Total CO2 22 mEq/l 20 mEq/l Bedside Blood Gas Base Excess (LAB) -9.0 meq/L -10.0 meq/L Bedside Blood Gas O2 Saturation 99.0 % 99.0 % Epi Test NA Oxygen Delivery Device Ventilator Bedside Oxygen Rate (breaths/min) 12 Blood Gas Minute Ventilation 5.3 Bedside FiO2 100 % Blood Gas Tidal Volume 500 Blood Gas PEEP 10 Bedside Glucose (other) 393 mg/dl Bedside Hemoglobin 10.5 g/dl Bedside Hematocrit 31 % Bedside Sodium 131 mEq/L Bedside Potassium 6.7 mEq/L Test 04/16/17 16:35 04/16/17 17:19 04/16/17 17:52 04/16/17 18:03 Blood Gas Sample Site Art Line Bedside Blood Gas pH (LAB) 7.23 Bedside Blood Gas pCO2 (LAB) 42 mmHg Bedside Blood Gas pO2 (LAB) 187 mmHg Bedside Blood Gas HCO3 (LAB) 19 meq/L Bedside Blood Gas Total CO2 20 mEq/l Bedside Blood Gas Base Excess (LAB) -10.0 meq/L Bedside Blood Gas O2 Saturation 99.0 % Epi Test NA Oxygen Delivery Device Ventilator Bedside Oxygen Rate (breaths/min) 16 Blood Gas Minute Ventilation 7 Bedside FiO2 70 % Blood Gas Tidal Volume 500 Blood Gas PEEP 10 Bedside Glucose (other) 379 mg/dl Potassium Level 5.7 mmol/L Ionized Calcium 1.03 mmol/l Bedside Glucose 345 mg/dl Test 04/16/17 18:17 04/16/17 19:07 04/16/17 19:57 04/16/17 20:16 Blood Gas Sample Site Art Line Bedside Blood Gas pH (LAB) 7.31 Bedside Blood Gas pCO2 (LAB) 32 mmHg Bedside Blood Gas pO2 (LAB) 63 mmHg Bedside Blood Gas HCO3 (LAB) 18 meq/L Bedside Blood Gas Total CO2 19 mEq/l Bedside Blood Gas Base Excess (LAB) -10.0 meq/L Bedside Blood Gas O2 Saturation 95.0 % Epi Test NA Oxygen Delivery Device Ventilator Bedside Oxygen Rate (breaths/min) 20 Blood Gas Minute Ventilation 9.2 Bedside FiO2 50 % Blood Gas Tidal Volume 500 Blood Gas PEEP 18 Bedside Glucose (other) 361 mg/dl 317 mg/dl Prothrombin Time 11.7 SECONDS Prothromb Time International Ratio 1.1 Activated Partial Thromboplast Time 25.0 SECONDS Partial Thromboplastin Ratio 1.0 Sodium Level 135 mmol/L Potassium Level 5.1 mmol/L Chloride Level 106 mmol/L Carbon Dioxide Level 17 mmol/L Anion Gap 12.0 mmol/L Blood Urea Nitrogen 62 mg/dl Creatinine 3.60 mg/dl Est Creatinine Clear Calc Drug Dose 21.5 ml/min Estimated GFR () 19.6 Estimated GFR (Non- 16.9 BUN/Creatinine Ratio 17.3 Random Glucose 321 mg/dl Calcium Level 8.2 mg/dl Ionized Calcium 1.07 mmol/l Magnesium Level 2.4 mg/dl Troponin I 0.169 ng/ml Beta-Hydroxybutyric Acid 1.35 mg/dL Test 04/16/17 21:14 04/16/17 22:05 04/16/17 22:07 04/16/17 23:02 Bedside Glucose (other) 279 mg/dl 227 mg/dl 147 mg/dl Urine Opiates Screen NEG Urine Methadone, Qualitative NEG Urine Barbiturates NEG Urine Phencyclidine (PCP) Level NEG Ur Amphetamine/Methamphetamine NEG MDMA (Ecstasy) Screen NEG Urine Benzodiazepines Screen NEG Urine Cocaine Metabolite NEG Urine Marijuana (THC) NEG Test 04/16/17 23:53 04/17/17 00:02 04/17/17 00:37 04/17/17 01:22 Prothrombin Time 11.8 SECONDS Prothromb Time International Ratio 1.1 Activated Partial Thromboplast Time 24.7 SECONDS Partial Thromboplastin Ratio 1.0 Sodium Level 140 mmol/L Potassium Level 4.8 mmol/L Chloride Level 110 mmol/L Carbon Dioxide Level 19 mmol/L Anion Gap 11.0 mmol/L Blood Urea Nitrogen 60 mg/dl Creatinine 3.60 mg/dl Est Creatinine Clear Calc Drug Dose 21.5 ml/min Estimated GFR () 19.6 Estimated GFR (Non- 16.9 BUN/Creatinine Ratio 16.6 Random Glucose 105 mg/dl Calcium Level 8.1 mg/dl Ionized Calcium 1.07 mmol/l Magnesium Level 2.3 mg/dl Bedside Glucose (other) 104 mg/dl 157 mg/dl Bedside Glucose 108 mg/dl Test 04/17/17 01:46 04/17/17 02:13 04/17/17 03:19 04/17/17 03:37 Bedside Glucose 83 mg/dl 198 mg/dl 88 mg/dl White Blood Count 7.79 K/uL Red Blood Count 2.65 M/uL Hemoglobin 8.4 g/dL Hematocrit 23.5 % Mean Corpuscular Volume 88.7 fL Mean Corpuscular Hemoglobin 31.7 pg Mean Corpuscular Hemoglobin Concent 35.7 g/dl Platelet Count 166 K/uL Mean Platelet Volume 10.5 fL Neutrophils (%) (Auto) 85.2 % Lymphocytes (%) (Auto) 8.2 % Monocytes (%) (Auto) 6.2 % Eosinophils (%) (Auto) 0.0 % Basophils (%) (Auto) 0.0 % Neutrophils # (Auto) 6.64 K/uL Lymphocytes # (Auto) 0.64 K/uL Monocytes # (Auto) 0.48 K/uL Eosinophils # (Auto) 0.00 K/uL Basophils # (Auto) 0.00 K/uL RDW Standard Deviation 37.6 fL RDW Coefficient of Variation 11.6 % Immature Granulocyte % (Auto) 0.4 % Immature Granulocyte # (Auto) 0.03 K/uL Polychromasia 1+ Tear Drop Cells 1+ Prothrombin Time 12.0 SECONDS Prothromb Time International Ratio 1.1 Activated Partial Thromboplast Time 24.5 SECONDS Partial Thromboplastin Ratio 0.9 Sodium Level 140 mmol/L Potassium Level 4.9 mmol/L Chloride Level 110 mmol/L Carbon Dioxide Level 21 mmol/L Anion Gap 9.0 mmol/L Blood Urea Nitrogen 62 mg/dl Creatinine 3.30 mg/dl Est Creatinine Clear Calc Drug Dose 23.5 ml/min Estimated GFR () 21.8 Estimated GFR (Non- 18.8 BUN/Creatinine Ratio 18.9 Random Glucose 132 mg/dl Calcium Level 8.0 mg/dl Ionized Calcium 1.08 mmol/l Phosphorus Level 3.4 mg/dl Magnesium Level 2.0 mg/dl Total Bilirubin 0.4 mg/dl Direct Bilirubin 0.2 mg/dl Aspartate Amino Transf (AST/SGOT) 127 U/L Alanine Aminotransferase (ALT/SGPT) 133 U/L Alkaline Phosphatase 79 U/L Troponin I 0.385 ng/ml Total Protein 5.8 gm/dl Albumin 2.5 gm/dl Random Vancomycin Level 16.8 mcg/ml Test 04/17/17 03:38 04/17/17 04:39 04/17/17 06:34 04/17/17 07:42 Bedside Glucose 145 mg/dl 80 mg/dl 106 mg/dl Prothrombin Time 12.0 SECONDS Prothromb Time International Ratio 1.1 Activated Partial Thromboplast Time 24.3 SECONDS Partial Thromboplastin Ratio 0.9 Sodium Level 137 mmol/L Potassium Level 5.2 mmol/L Chloride Level 108 mmol/L Carbon Dioxide Level 20 mmol/L Anion Gap 9.0 mmol/L Blood Urea Nitrogen 65 mg/dl Creatinine 3.30 mg/dl Est Creatinine Clear Calc Drug Dose 23.5 ml/min Estimated GFR () 21.8 Estimated GFR (Non- 18.8 BUN/Creatinine Ratio 19.5 Random Glucose 118 mg/dl Calcium Level 8.4 mg/dl Ionized Calcium 1.05 mmol/l Magnesium Level 1.9 mg/dl Test 04/17/17 10:30 04/17/17 10:38 Blood Gas Sample Site Art Line Bedside Blood Gas pH (LAB) 7.44 Bedside Blood Gas pCO2 (LAB) 29 mmHg Bedside Blood Gas pO2 (LAB) 67 mmHg Bedside Blood Gas HCO3 (LAB) 19 meq/L Bedside Blood Gas Total CO2 20 mEq/l Bedside Blood Gas Base Excess (LAB) -5.0 meq/L Bedside Blood Gas O2 Saturation 94.0 % Epi Test NA Oxygen Delivery Device Ventilator Bedside FiO2 40 % Blood Gas PEEP 5 Prothrombin Time 12.0 SECONDS Prothromb Time International Ratio 1.1 Activated Partial Thromboplast Time 25.1 SECONDS Partial Thromboplastin Ratio 1.0 Sodium Level 140 mmol/L Potassium Level 4.8 mmol/L Chloride Level 110 mmol/L Carbon Dioxide Level 20 mmol/L Anion Gap 10.0 mmol/L Blood Urea Nitrogen 61 mg/dl Creatinine 3.40 mg/dl Est Creatinine Clear Calc Drug Dose 22.8 ml/min Estimated GFR () 21.0 Estimated GFR (Non- 18.2 BUN/Creatinine Ratio 17.9 Random Glucose 122 mg/dl Calcium Level 8.0 mg/dl Ionized Calcium 0.98 mmol/l Magnesium Level 1.9 mg/dl Troponin I 0.395 ng/ml Lipase 957 U/L Telemetry reviewed: This morning she is in sinus rhythm with intact AV conduction. Assessment and Plan #1. Asystole: She had documentation of sinus arrest, although I cannot identify a specific cause it may simply be sinus node dysfunction. Whether other issues relate to this or not is uncertain but at this point she will need a pacemaker. I will tentatively plan on arranging that for 04/19/2017. I discussed it with her briefly, however she was just extubated and I will go into more detail tomorrow. Thank you for allowing me to participate in her care.
[2017-04-17] MEDS: HydrALAZINE HCL 20 MG/ML VIAL IV. PRN ×2 (12:16→19:38)
--- NOTE | 2017-04-17 12:51 | ECHOCARDIOGRAM REPORT ---
*NOTICE TO RECEIVING LIBERTARIAN AGENCY This information is strictly Confidential and protected under [place] law. [place] law prohibits you from making any further disclosure of this information unless further disclosure is expressly permitted by the written consent of the person to whom it pertains or is authorized by law. A general authorization for the release of medical or other information is not sufficient for this purpose. Hospital accepts no responsibility if the information is made available to any other person, INCLUDING THE PATIENT. Interpretation Summary * Name: CHAUNCEY CHAU [id number] Study Date: 04/17/2017 07:50 AM BP: 132/58 mmHg * [facility] HR: 72 * : 1955 (M/d/yyyy) Gender: Male Height: 70 in * Age: 61 yrs Ethnicity: AA Weight: 159 lb * Ordering Physician: Hever Ward * Ref[facility] Phys[facility] * Performed By: Rodríguez Lee RCS * * Reason For Study: Pericardial Eff following temp pacer and chest compressions * BSA: 1.9 m2 * -- Conclusions -- * Limted study to assess pericardial effusion. * 1. Normal LV function. LVEF 65-70%. No regional wall motion abnormalities. * 2. Normal RV size and function. * 3. Trace pericardial effusion. No evidence of tamponade. * 4. Pericardial effusion not significantly changed from 04/16/2017. Procedure Details * Left Ventricle The left ventricle is grossly normal size. There is moderate concentric left ventricular hypertrophy. Ejection Fraction = 65-70%. * Right Ventricle The right ventricle is grossly normal size. There is a pacemaker lead in the right ventricle. The right ventricular systolic function is normal as assessed by tricuspid annular plane systolic excursion (TAPSE) (normal >1.5 cm). * Atria The left atrium is severely dilated. The right atrium is moderately dilated. * Mitral Valve The mitral valve is grossly normal. There is no mitral valve stenosis. * Tricuspid Valve The tricuspid valve is not well visualized, but is grossly normal. * Aortic Valve The aortic valve opens well. No hemodynamically significant valvular aortic stenosis. * Great Vessels The aortic root and proximal ascending aorta are normal sized. * Pericardium/Pleural There are no echocardiographic indications of cardiac tamponade. Trace pericardial effusion * Left Ventricular Diastolic Function Diastolic dysfunction, Grade III (restrictive pattern), consistent with markedly increased left atrial pressure. *
--- NOTE | 2017-04-17 13:28 | Pharmacy Progress Note ---
Glycemic Control Progress Note Date of Service Apr 17, 2017. Scope Glycemic Pharmacist consulted for glycemic control to write orders per formerly [facility] inpatient glycemic control protocol. Objective Accuchecks BSG (last 24hrs): Test 04/16/17 14:01 04/16/17 18:03 04/16/17 19:57 04/16/17 23:53 Random Glucose 356 mg/dl (70-99) 321 mg/dl (70-99) 105 mg/dl (70-99) Bedside Glucose 345 mg/dl (70-99) Test 04/17/17 01:22 04/17/17 01:46 04/17/17 02:13 04/17/17 03:19 Bedside Glucose 108 mg/dl (70-99) 83 mg/dl (70-99) 198 mg/dl (70-99) 88 mg/dl (70-99) Test 04/17/17 03:37 04/17/17 03:38 04/17/17 04:39 04/17/17 06:34 Random Glucose 132 mg/dl (70-99) Bedside Glucose 145 mg/dl (70-99) 80 mg/dl (70-99) 106 mg/dl (70-99) Test 04/17/17 07:42 04/17/17 10:38 Random Glucose 118 mg/dl (70-99) 122 mg/dl (70-99) Recent Pertinent Medications The patient is currently receiving: * Correctional Insulin: Novolog Correction per scale ACHS Goal Range: Low 100 mg/dL - High 150 mg/dL Correction Factor: 30 mg/dL/unit * Prandial insulin: Per carb ratio of 1 unit per 10 grams CHO consumed Outpatient Anti-Diabetic Meds Humulin-R per sliding scale Assessment & Plan ASSESSMENT: * See progress note from 04/16 for more background info, in short: * Pt initially receiving IV insulin infusion for hyperglycemia secondary to baseline DM (outpatient regimen on hold),stress/infection, [facility]; now on SQ bolus dosing only * Insulin drip was d/c'd ~0500 this AM and BSGs have remained below goal range without further insulin * Recent A1c unavailable so I'm not sure how well controlled he is at home * Patient now extubated and most stressors are removed so will plan to continue with SQ bolus dosing as per CF/CR order. Will plan to add an overnight accucheck should BSGs become elevated. Will also adjust goal range to appropriate goal range for critically ill ICU patient. PLAN FOR INPATIENT GLYCEMIC CONTROL: * Continue Novolog ACHS, add 0200 accucheck * Change goal range to 140-180 * Continue CF 30 * Continue CR 10 * A1c w/ AM labs * Please note that the plan above was derived based on current level of insulin resistance and hospital stress. These recommendations are appropriate for inpatient admission only. Plan of care upon discharge will need to be reassessed to avoid potential outpatient hypo/hyperglycemia. Thank you.
[2017-04-17] MEDS ORDERED: AMLODIPINE BESYLATE 5 MG TAB PO ONE (13:30)
[2017-04-17] MEDS ORDERED: FUROSEMIDE 40 MG/4 ML VIAL ONE (13:44)
[2017-04-17] MEDS ORDERED: FUROSEMIDE INJ 40 MG in SYRINGE 0 ML IV ONE (13:45)
[2017-04-17] MEDS: HEPARIN SOD 5000 UNIT/0.5 ML CARP SQ SCH ×2 (13:50→21:06)
[2017-04-17 16:14] LABS: INR 1.1 (0.9-1.1)
[2017-04-17 16:19] LABS: BUN/CREATININE RATIO 18.2 (10-20); CALCIUM 8.3 mg/dl (8.5-10.1); CREATININE 3.5 mg/dl (0.60-1.40); MAGNESIUM 2.4 mg/dl (1.8-2.4); POTASSIUM 4.6 mmol/L (3.5-5.1)
--- NOTE | 2017-04-17 16:22 | Progress Note ---
Subjective Date of Service: Apr 17, 2017. Subjective Pt evaluation today including: conversation w/ patient, physical exam, lab review, conversation w/ application support consultant, review of inpatient medication list Pain: denies pain PO Intake: NPO Voiding: velazquez catheter in place patient extubated this AM, stable on NC denies pain discussed the case with Dr. Vo and Dr. Yañez reviewed lab work plan for pacemaker on Thursday 04/19 Problem List Medical Problems: (1) Acute renal failure Status: Acute (2) Bradycardia Status: Acute (3) Cardiopulmonary arrest Status: Acute (4) GI bleed Status: Acute (5) Heart block Status: Acute (6) Renal failure Status: Acute Review of Systems Constitutional: + weakness, + fatigue All Other Systems: Reviewed and Negative Medications Current Inpatient Medications Medications (Trade) Dose Ordered Sig/Carlin Route Start Time Stop Time Status Last Admin Dose Admin Aztreonam 1000 mg/ Dextrose 110 ml @ 100 mls/hr Q8H IV 04/16/17 14:00 04/23/17 13:59 04/17/17 13:45 100 MLS/HR Miscellaneous Information (Consult Glycemic Management Pharmacy) 1 UD PRN N/A 04/16/17 15:00 05/16/17 14:59 Norepinephrine Bitartrate 8 mg/ Dextrose 508 ml @ 0 mls/hr Q0M PRN IV 04/16/17 16:30 05/16/17 16:29 04/16/17 17:07 2.7 MLS/HR Pantoprazole Sodium 40 mg/ Syringe 10 ml @ 5 mls/min DAILY@11 IV 04/16/17 18:00 05/16/17 17:59 04/17/17 10:32 5 MLS/MIN Vancomycin HCl (Consult) 1 UD PRN N/A 04/16/17 17:15 05/16/17 17:14 Aztreonam (Consult) 1 UD PRN N/A 04/16/17 17:15 05/16/17 17:14 Levofloxacin (Consult) 1 UD PRN N/A 04/16/17 17:15 05/16/17 17:14 Nitroglycerin (Nitroglycerin 2% Oint) 2 inch Q6H EXT 04/16/17 19:30 05/16/17 19:29 04/17/17 13:48 2 INCH Midazolam HCl (Versed Inj) 2 mg Q1H PRN IV 04/16/17 23:45 05/16/17 23:44 Propofol (Diprivan Iv Emulsion 100ml Vial) 1 dose UD IV 04/16/17 23:45 04/19/17 23:44 04/17/17 00:06 1 DOSE Heparin Sodium (Porcine) (Heparin 10 Unit/ ml 5 ml Flush) 5 ml PRN PRN FLUSH 04/17/17 00:30 05/17/17 00:29 Insulin Aspart (novoLOG ASPART) SLIDING SCALE If C... ACHS SC 04/17/17 06:45 05/17/17 06:44 Glucose (Glucose 40% Gel) UD PRN PO 04/17/17 05:00 05/17/17 04:59 Glucose (Glucose Chew Tab) 1 tabs UD PRN PO 04/17/17 05:00 05/17/17 04:59 Dextrose (Dextrose 50% 50ML Syringe) 50 ml UD PRN IV 04/17/17 05:00 05/17/17 04:59 Glucagon (Glucagon Inj) 1 mg UD PRN SQ 04/17/17 05:00 05/17/17 04:59 Levofloxacin 750 mg/Prmx 100 ml @ 100 mls/hr Q2D@1800 IV 04/18/17 18:00 04/23/17 17:59 Vancomycin HCl 1000 mg/Sodium Chloride 270 ml @ 125 mls/hr Q24H IV 04/17/17 10:00 04/23/17 09:59 04/17/17 10:29 125 MLS/HR Heparin Sodium (Porcine) (Heparin Sq 5000 Unit/0.5ml) 5,000 unit Q8 SQ 04/17/17 14:00 05/17/17 13:59 04/17/17 13:50 5,000 UNIT Hydralazine HCl (HydrALAZINE INJ) 20 mg Q4 PRN IV. 04/17/17 12:15 05/17/17 12:14 04/17/17 12:16 20 MG Amlodipine Besylate (Norvasc Tab) 10 mg QAM PO 04/18/17 09:00 05/18/17 08:59 Insulin Aspart (novoLOG ASPART) SLIDING SCALE If C... 0200 ONCE SC 04/18/17 02:00 04/18/17 02:01 Objective Vital Signs Date Time Temp Pulse Resp B/P (MAP) Pulse Ox O2 Delivery O2 Flow Rate FiO2 04/17/17 14:00 37.0 79 18 168/65 (99) 94 Nasal Cannula 4.0 158/54 (88) 04/17/17 12:00 94 Oxymask 5.0 04/17/17 12:00 37.4 82 18 135/60 (85) 93 Oxymask 5.0 159/54 (89) 04/17/17 10:45 37.4 70 20 147/63 (91) 98 155/52 (86) 04/17/17 08:00 50 04/17/17 08:00 97 Mechanical Ventilator 50 04/17/17 08:00 37.4 70 20 108/70 (83) 98 137/53 (81) 04/17/17 07:20 50 04/17/17 06:15 37.0 70 20 124/64 (79) 97 129/54 (73) 04/17/17 06:00 36.9 70 24 128/68 (75) 98 132/56 (75) 04/17/17 05:45 36.8 70 18 115/70 (79) 97 126/53 (67) 04/17/17 05:30 36.7 70 19 124/75 (87) 97 129/59 (78) 04/17/17 05:17 50 04/17/17 05:15 36.7 71 22 121/69 (76) 98 129/57 (74) 04/17/17 05:00 36.7 70 25 121/63 (86) 97 132/58 (77) 04/17/17 04:52 36.7 70 14 137/67 (85) 97 138/65 (88) 04/17/17 04:30 36.6 70 16 120/68 (80) 99 138/60 (81) 04/17/17 04:15 36.5 70 24 125/75 (82) 99 143/62 (81) 04/17/17 04:00 36.4 70 25 123/74 (85) 98 150/65 (84) 04/17/17 04:00 99 Mechanical Ventilator 50 04/17/17 04:00 50 04/17/17 03:45 36.3 70 22 112/67 (74) 99 125/58 (74) 04/17/17 03:30 36.3 72 20 98/70 (76) 97 118/55 (72) 04/17/17 03:15 36.3 70 22 114/65 (70) 98 119/54 (72) 04/17/17 03:00 36.2 70 23 121/72 (77) 98 132/58 (73) 04/17/17 02:45 36.1 71 21 107/68 (73) 98 122/55 (72) 04/17/17 02:30 36.0 70 24 124/67 (75) 99 127/57 (79) 04/17/17 02:15 35.9 70 21 118/74 (78) 98 133/59 (78) 04/17/17 02:00 35.8 70 17 139/69 (69) 95 99/58 (65) 04/17/17 01:50 50 04/17/17 01:45 35.7 70 23 121/72 (82) 95 139/61 (82) 04/17/17 01:30 35.5 70 22 122/69 (78) 131/59 (78) 04/17/17 01:15 35.4 70 26 122/71 (82) 97 142/61 (83) 04/17/17 01:00 35.2 69 24 119/72 (79) 98 135/60 (80) 04/17/17 00:45 35.1 70 20 126/71 (81) 98 142/60 (82) 04/17/17 00:30 35.0 70 22 125/71 (85) 168/61 (82) 04/17/17 00:15 34.8 69 36 138/66 (75) 94 132/57 (78) 04/17/17 00:01 99 Mechanical Ventilator 50 04/17/17 00:01 50 04/17/17 00:00 34.7 70 18 131/71 (80) 139/59 (81) 04/16/17 23:45 34.6 69 16 131/73 (81) 97 143/59 (81) 04/16/17 23:30 34.4 70 23 126/72 (81) 98 146/60 (82) 04/16/17 23:15 34.2 70 14 124/70 (78) 97 142/57 (80) 04/16/17 23:00 33.9 70 16 132/74 (91) 146/59 (81) 04/16/17 22:45 33.5 69 23 121/68 (78) 96 133/57 (78) 04/16/17 22:30 33.2 70 13 118/73 (74) 97 124/55 (76) 04/16/17 22:15 32.9 69 22 125/66 (75) 97 123/55 (75) 04/16/17 22:10 50 04/16/17 22:01 32.5 70 29 127/61 (73) 96 113/54 (75) 04/16/17 21:45 32.2 70 25 114/68 (76) 98 108/57 (73) 04/16/17 21:30 31.9 70 23 115/66 (93) 103/56 (72) 04/16/17 21:15 31.6 70 24 127/74 (76) 94 108/56 (82) 04/16/17 21:10 31.5 70 27 116/66 (88) 120/56 (72) 04/16/17 21:00 31.3 69 24 130/70 (91) 89 109/59 (77) 04/16/17 20:45 31.1 70 23 130/71 (81) 96 111/61 (82) 04/16/17 20:36 50 04/16/17 20:30 31.0 70 20 116/66 (77) 99 111/57 (77) 04/16/17 20:15 30.9 69 21 116/67 (78) 97 112/58 (78) 04/16/17 20:00 50 04/16/17 20:00 99 Mechanical Ventilator 50 04/16/17 20:00 30.8 70 21 118/68 (76) 99 103/56 (75) 04/16/17 19:45 30.8 69 21 126/71 (82) 100 106/64 (83) 04/16/17 19:30 30.7 69 36 117/69 (82) 100 113/62 (82) 04/16/17 19:15 30.7 66 32 116/70 (83) 100 114/63 (83) 04/16/17 19:00 30.6 70 22 127/70 (85) 100 119/65 (86) 04/16/17 18:30 30.6 69 20 124/74 (86) 98 123/65 04/16/17 18:20 50 04/16/17 18:00 30.6 70 20 128/73 (86) 132/64 04/16/17 17:45 30.7 70 22 144/78 (85) 97 110/66 04/16/17 17:15 30.8 70 20 127/73 (84) 04/16/17 16:47 50 04/16/17 16:45 30.9 70 20 (64) 95 74/55 04/16/17 16:15 31.0 71 16 (72) 90 85/63 Physical Exam General Appearance: WD/WN, no apparent distress Eyes: normal inspection, EOMI, sclerae normal Neck: supple, no adenopathy, no JVD, trachea midline Respiratory/Chest: chest non-tender, lungs clear, normal breath sounds, no respiratory distress, no accessory muscle use Cardiovascular: regular rate, rhythm, no edema, no gallop, no JVD, no murmur, + pertinent finding (paced) Abdomen: normal bowel sounds, non tender, soft, no organomegaly Extremities: normal range of motion, non-tender, normal inspection, no pedal edema, no calf tenderness, pelvis stable Neurologic/Psychiatric: 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, no motor/sensory deficits, alert, normal mood/affect, oriented x 3 Skin: normal color, warm/dry, no rash Laboratory Results Last 24 Hours Test 04/16/17 16:25 04/16/17 16:35 04/16/17 17:19 04/16/17 17:52 Bedside Hemoglobin 10.5 g/dl Bedside Hematocrit 31 % Bedside Blood Gas pH (LAB) 7.16 7.23 Bedside Blood Gas pCO2 (LAB) 53 mmHg 42 mmHg Bedside Blood Gas pO2 (LAB) 209 mmHg 187 mmHg Bedside Blood Gas HCO3 (LAB) 19 meq/L 19 meq/L Bedside Blood Gas Total CO2 20 mEq/l 20 mEq/l Bedside Blood Gas Base Excess (LAB) -10.0 meq/L -10.0 meq/L Bedside Blood Gas O2 Saturation 99.0 % 99.0 % Bedside Sodium 131 mEq/L Bedside Potassium 6.7 mEq/L Blood Gas Sample Site Art Line Epi Test NA Oxygen Delivery Device Ventilator Bedside Oxygen Rate (breaths/min) 16 Blood Gas Minute Ventilation 7 Bedside FiO2 70 % Blood Gas Tidal Volume 500 Blood Gas PEEP 10 Bedside Glucose (other) 379 mg/dl Potassium Level 5.7 mmol/L Ionized Calcium 1.03 mmol/l Test 04/16/17 18:03 04/16/17 18:17 04/16/17 19:07 04/16/17 19:57 Bedside Glucose 345 mg/dl Blood Gas Sample Site Art Line Bedside Blood Gas pH (LAB) 7.31 Bedside Blood Gas pCO2 (LAB) 32 mmHg Bedside Blood Gas pO2 (LAB) 63 mmHg Bedside Blood Gas HCO3 (LAB) 18 meq/L Bedside Blood Gas Total CO2 19 mEq/l Bedside Blood Gas Base Excess (LAB) -10.0 meq/L Bedside Blood Gas O2 Saturation 95.0 % Epi Test NA Oxygen Delivery Device Ventilator Bedside Oxygen Rate (breaths/min) 20 Blood Gas Minute Ventilation 9.2 Bedside FiO2 50 % Blood Gas Tidal Volume 500 Blood Gas PEEP 18 Bedside Glucose (other) 361 mg/dl Prothrombin Time 11.7 SECONDS Prothromb Time International Ratio 1.1 Activated Partial Thromboplast Time 25.0 SECONDS Partial Thromboplastin Ratio 1.0 Sodium Level 135 mmol/L Potassium Level 5.1 mmol/L Chloride Level 106 mmol/L Carbon Dioxide Level 17 mmol/L Anion Gap 12.0 mmol/L Blood Urea Nitrogen 62 mg/dl Creatinine 3.60 mg/dl Est Creatinine Clear Calc Drug Dose 21.5 ml/min Estimated GFR () 19.6 Estimated GFR (Non- 16.9 BUN/Creatinine Ratio 17.3 Random Glucose 321 mg/dl Calcium Level 8.2 mg/dl Ionized Calcium 1.07 mmol/l Magnesium Level 2.4 mg/dl Troponin I 0.169 ng/ml Beta-Hydroxybutyric Acid 1.35 mg/dL Test 04/16/17 20:16 04/16/17 21:14 04/16/17 22:05 04/16/17 22:07 Bedside Glucose (other) 317 mg/dl 279 mg/dl 227 mg/dl Urine Opiates Screen NEG Urine Methadone, Qualitative NEG Urine Barbiturates NEG Urine Phencyclidine (PCP) Level NEG Ur Amphetamine/Methamphetamine NEG MDMA (Ecstasy) Screen NEG Urine Benzodiazepines Screen NEG Urine Cocaine Metabolite NEG Urine Marijuana (THC) NEG Test 04/16/17 23:02 04/16/17 23:53 04/17/17 00:02 04/17/17 00:37 Bedside Glucose (other) 147 mg/dl 104 mg/dl 157 mg/dl Prothrombin Time 11.8 SECONDS Prothromb Time International Ratio 1.1 Activated Partial Thromboplast Time 24.7 SECONDS Partial Thromboplastin Ratio 1.0 Sodium Level 140 mmol/L Potassium Level 4.8 mmol/L Chloride Level 110 mmol/L Carbon Dioxide Level 19 mmol/L Anion Gap 11.0 mmol/L Blood Urea Nitrogen 60 mg/dl Creatinine 3.60 mg/dl Est Creatinine Clear Calc Drug Dose 21.5 ml/min Estimated GFR () 19.6 Estimated GFR (Non- 16.9 BUN/Creatinine Ratio 16.6 Random Glucose 105 mg/dl Calcium Level 8.1 mg/dl Ionized Calcium 1.07 mmol/l Magnesium Level 2.3 mg/dl Test 04/17/17 01:22 04/17/17 01:46 04/17/17 02:13 04/17/17 03:19 Bedside Glucose 108 mg/dl 83 mg/dl 198 mg/dl 88 mg/dl Test 04/17/17 03:37 04/17/17 03:38 04/17/17 04:39 04/17/17 06:34 White Blood Count 7.79 K/uL Red Blood Count 2.65 M/uL Hemoglobin 8.4 g/dL Hematocrit 23.5 % Mean Corpuscular Volume 88.7 fL Mean Corpuscular Hemoglobin 31.7 pg Mean Corpuscular Hemoglobin Concent 35.7 g/dl Platelet Count 166 K/uL Mean Platelet Volume 10.5 fL Neutrophils (%) (Auto) 85.2 % Lymphocytes (%) (Auto) 8.2 % Monocytes (%) (Auto) 6.2 % Eosinophils (%) (Auto) 0.0 % Basophils (%) (Auto) 0.0 % Neutrophils # (Auto) 6.64 K/uL Lymphocytes # (Auto) 0.64 K/uL Monocytes # (Auto) 0.48 K/uL Eosinophils # (Auto) 0.00 K/uL Basophils # (Auto) 0.00 K/uL RDW Standard Deviation 37.6 fL RDW Coefficient of Variation 11.6 % Immature Granulocyte % (Auto) 0.4 % Immature Granulocyte # (Auto) 0.03 K/uL Polychromasia 1+ Tear Drop Cells 1+ Prothrombin Time 12.0 SECONDS Prothromb Time International Ratio 1.1 Activated Partial Thromboplast Time 24.5 SECONDS Partial Thromboplastin Ratio 0.9 Sodium Level 140 mmol/L Potassium Level 4.9 mmol/L Chloride Level 110 mmol/L Carbon Dioxide Level 21 mmol/L Anion Gap 9.0 mmol/L Blood Urea Nitrogen 62 mg/dl Creatinine 3.30 mg/dl Est Creatinine Clear Calc Drug Dose 23.5 ml/min Estimated GFR () 21.8 Estimated GFR (Non- 18.8 BUN/Creatinine Ratio 18.9 Random Glucose 132 mg/dl Calcium Level 8.0 mg/dl Ionized Calcium 1.08 mmol/l Phosphorus Level 3.4 mg/dl Magnesium Level 2.0 mg/dl Total Bilirubin 0.4 mg/dl Direct Bilirubin 0.2 mg/dl Aspartate Amino Transf (AST/SGOT) 127 U/L Alanine Aminotransferase (ALT/SGPT) 133 U/L Alkaline Phosphatase 79 U/L Troponin I 0.385 ng/ml Total Protein 5.8 gm/dl Albumin 2.5 gm/dl Random Vancomycin Level 16.8 mcg/ml Bedside Glucose 145 mg/dl 80 mg/dl 106 mg/dl Test 04/17/17 07:42 04/17/17 10:30 04/17/17 10:38 04/17/17 15:51 Prothrombin Time 12.0 SECONDS 12.0 SECONDS Prothromb Time International Ratio 1.1 1.1 Activated Partial Thromboplast Time 24.3 SECONDS 25.1 SECONDS Partial Thromboplastin Ratio 0.9 1.0 Sodium Level 137 mmol/L 140 mmol/L Potassium Level 5.2 mmol/L 4.8 mmol/L Chloride Level 108 mmol/L 110 mmol/L Carbon Dioxide Level 20 mmol/L 20 mmol/L Anion Gap 9.0 mmol/L 10.0 mmol/L Blood Urea Nitrogen 65 mg/dl 61 mg/dl Creatinine 3.30 mg/dl 3.40 mg/dl Est Creatinine Clear Calc Drug Dose 23.5 ml/min 22.8 ml/min Estimated GFR () 21.8 21.0 Estimated GFR (Non- 18.8 18.2 BUN/Creatinine Ratio 19.5 17.9 Random Glucose 118 mg/dl 122 mg/dl Calcium Level 8.4 mg/dl 8.0 mg/dl Ionized Calcium 1.05 mmol/l 0.98 mmol/l Magnesium Level 1.9 mg/dl 1.9 mg/dl Blood Gas Sample Site Art Line Bedside Blood Gas pH (LAB) 7.44 Bedside Blood Gas pCO2 (LAB) 29 mmHg Bedside Blood Gas pO2 (LAB) 67 mmHg Bedside Blood Gas HCO3 (LAB) 19 meq/L Bedside Blood Gas Total CO2 20 mEq/l Bedside Blood Gas Base Excess (LAB) -5.0 meq/L Bedside Blood Gas O2 Saturation 94.0 % Epi Test NA Oxygen Delivery Device Ventilator Bedside FiO2 40 % Blood Gas PEEP 5 Troponin I 0.395 ng/ml Lipase 957 U/L Test 04/17/17 15:52 Assessment and Plan 61 y/o M who was admitted to the ICU s/p asystolic and cardiac arrest with multiple rounds of compressions. - Cardiac arrest due to sinus arrest currently paced with temporary pacer plan for permanent pacemaker on Thursday 04/19 echo with preserved EF of 65-70% keep in ICU - Acute respiratory failure/arrest secondary to cardiac arrest extubated 04/17, breathing well today on 4L - LEEROY on CKD stage III: Cr remains high at 3.3-3.4 likely ATN from cardiac arrest and poor kidney perfusion K 4.8, will continue to monitor - Anemia: H/H stable, no signs of bleeding, hold on transfusion - HIV: tx as per ICU team - Hx of transgender with hormone use full code, remain in ICU appreciate management per supervisor assembly room
[2017-04-17] MEDS ORDERED: ACETAMINOPHEN 325 MG TAB ONE (19:42)
[2017-04-17] MEDS ORDERED: NURSING VERBAL MED ORDER ONE (19:45)
[2017-04-17 20:33] LABS: INR 1.1 (0.9-1.1); PROTHROMBIN TIME (PATIENT) 11.9 SECONDS (9.0-12.0)
[2017-04-17 20:38] LABS: BUN/CREATININE RATIO 18.7 (10-20); CALCIUM 8.5 mg/dl (8.5-10.1); CREATININE 3.5 mg/dl (0.60-1.40); MAGNESIUM 2.3 mg/dl (1.8-2.4); POTASSIUM 4.5 mmol/L (3.5-5.1)
[2017-04-18] VITALS (29 sets, daily range): BP systolic 122–175; BP diastolic 49–82; PULSE 86–105; TEMP 36.9–37.6; O2SAT 90–96
[2017-04-18 00:16] LABS: INR 1.2 (0.9-1.1); PARTIAL THROMBOPLASTIN RATIO 1.2; PROTHROMBIN TIME (PATIENT) 13.4 SECONDS (9.0-12.0)
[2017-04-18] MEDS: HydrALAZINE HCL 20 MG/ML VIAL IV. PRN (00:40)
[2017-04-18 01:13] LABS: BUN/CREATININE RATIO 17.7 (10-20); CALCIUM 8.2 mg/dl (8.5-10.1); CREATININE 3.4 mg/dl (0.60-1.40); MAGNESIUM 2.3 mg/dl (1.8-2.4); POTASSIUM 4.3 mmol/L (3.5-5.1)
[2017-04-18] MEDS: NITROGLYCERIN OINT 2% 1GM PACKET EXT SCH ×4 (01:45→19:40)
[2017-04-18] MEDS ORDERED: INSULIN ASPART 100 UNITS/ML 3 ML PEN SC ONE (02:00)
[2017-04-18 02:59] LABS: URCREATININE 94.4 MG/DL (>/= 20)
[2017-04-18 04:00] LABS: BASO % 0.1 %; BASO ABS # 0.01 K/uL (0-0.2); EOS % 0.1 %; HEMATOCRIT 23.1 % (42-52); IG% 0.4 %; LYMPH % 11.3 %; LYMPH ABS # 1.25 K/uL (1.2-3.4); MEAN CELL VOLUME 89.2 fL (80-100); MEAN CORPUSCULAR HEMOGLOBIN 31.3 pg (25-34); MEAN CORPUSCULAR HGB CONC 35.1 g/dl (32-36); MEAN PLATELET VOLUME 11.1 fL (7.4-10.4); MONO % 7.7 %; NEUT % 80.4 %; PLATELET COUNT 157 K/uL (130-400); RED BLOOD COUNT 2.59 M/uL (4.7-6.1); WHITE BLOOD COUNT 11.04 K/uL (4.8-10.8)
[2017-04-18 04:25] LABS: COMPLETE YES
[2017-04-18 04:29] LABS: BUN/CREATININE RATIO 17.7 (10-20); CALCIUM 7.7 mg/dl (8.5-10.1); CREATININE 3.4 mg/dl (0.60-1.40); MAGNESIUM 2.2 mg/dl (1.8-2.4); PHOSPHORUS 3.8 mg/dl (2.5-4.9); POTASSIUM 4.1 mmol/L (3.5-5.1)
[2017-04-18] MEDS: HEPARIN SOD 5000 UNIT/0.5 ML CARP SQ SCH (06:13)
[2017-04-18] MEDS: AZTREONAM IV 1,000 MG in DEXTROSE 5% 100ML 100 ML IV SCH (06:14)
--- NOTE | 2017-04-18 07:23 | DIAGNOSTIC IMAGING REPORT ---
CHEST ONE VIEW PORTABLE CLINICAL HISTORY: intubated tube position COMPARISON STUDY: 04/17/2017 FINDINGS: Interval extubation. Persistent moderate cardiomegaly. Basilar parenchymal infiltrates and/or effusions are similar compared to the prior study. Pulmonary vasculature is prominent. IMPRESSION: Unchanging basilar infiltrates and/or effusions. Interval extubation. The above report was generated using voice recognition software. It may contain grammatical, syntax or spelling errors. Electronically signed by: Davion Lopez M.D. 04/18/2017 7:21 AM Dictated Date/Time: 04/18/2017 7:20 AM
[2017-04-18] MEDS: AMLODIPINE BESYLATE 5 MG TAB PO SCH (08:13)
[2017-04-18] MEDS ORDERED: LANTUS PER UNIT CHARGE SQ ONE (08:15)
--- NOTE | 2017-04-18 09:25 | Pharmacy Progress Note ---
Glycemic Control Progress Note Date of Service Apr 18, 2017. Scope Glycemic Pharmacist consulted for glycemic control to write orders per [facility] inpatient glycemic control protocol. Objective Accuchecks BSG (last 24hrs): Test 04/17/17 10:38 04/17/17 15:52 04/17/17 16:03 04/17/17 16:05 Random Glucose 122 mg/dl (70-99) 230 mg/dl (70-99) Bedside Glucose 255 mg/dl (70-99) 245 mg/dl (70-99) Test 04/17/17 19:53 04/17/17 20:14 04/17/17 20:17 04/18/17 00:41 Random Glucose 174 mg/dl (70-99) 159 mg/dl (70-99) Bedside Glucose 205 mg/dl (70-99) 182 mg/dl (70-99) Test 04/18/17 01:59 04/18/17 03:45 04/18/17 06:16 Bedside Glucose 167 mg/dl (70-99) 193 mg/dl (70-99) Random Glucose 164 mg/dl (70-99) HbA1c: Test 04/18/17 03:45 Recent Pertinent Medications The patient is currently receiving: * Correctional Insulin: Novolog Correction per scale ACHS Goal Range: Low 140 mg/dL - High 180 mg/dL Correction Factor: 30 mg/dL/unit * Prandial insulin: Per carb ratio of 1 unit per 10 grams CHO consumed Outpatient Anti-Diabetic Meds Humulin-R per sliding scale Assessment & Plan ASSESSMENT: * See progress note from 04/17 for more background info, in short: * Pt receiving SQ bolus insulin for hyperglycemia secondary to baseline DM ( outpatient regimen on hold),stress/infection * Patient received 4 units of insulin yesterday with BSGs ranging from 122-245 mg/dL in the past 24 hours * Diet has been advanced and BSG is starting to rise, fasting of 193 mg/dL this AM * Will plan to give a one time dose of Lantus this AM - based on insulin calculator estimates using wt and stress level of ~1 * Further dosing will be dependent upon BSGs * Will continue current CF/CR as ordered PLAN FOR INPATIENT GLYCEMIC CONTROL: * Lantus 8 units x 1 this AM - further dosing will be assessed tomorrow * Continue Novolog ACHS * Goal range 140-180 * CF 30 * CR 10 * A1c still pending * Please note that the plan above was derived based on current level of insulin resistance and hospital stress. These recommendations are appropriate for inpatient admission only. Plan of care upon discharge will need to be reassessed to avoid potential outpatient hypo/hyperglycemia. Thank you.
[2017-04-18] MEDS ORDERED: METOPROLOL TARTRATE 1 MG/ML VIAL IV STA (09:37)
[2017-04-18] MEDS: VANCOMYCIN INJ 1,000 MG in SODIUM CHLORIDE 0.9% 250ML 250 ML IV SCH (09:59)
[2017-04-18] MEDS: INSULIN ASPART 100 UNITS/ML 3 ML PEN SC SCH ×4 (10:01→21:00)
--- NOTE | 2017-04-18 10:26 | Cardiology Follow-Up ---
Subjective Date of Service: Apr 18, 2017. Pt evaluation today including: conversation w/ patient, physical exam, lab review, review of studies, review of inpatient medication list History of Present Illness Today she developed atrial fibrillation with a rapid heart rate, this is not an arrhythmia that we have been aware of. She feels well, has no complaints. Her temporary pacemaker remains in place. Social History Smoking Status: Current Every Day Smoker History of Alcohol Use: No Review of Systems Respiratory: No shortness of breath Cardiac: No chest pain Objective Vital Signs Past 12 Hours Date Time Temp Pulse Resp B/P (MAP) Pulse Ox O2 Delivery O2 Flow Rate FiO2 04/18/17 10:00 37.0 105 16 151/73 (99) 91 Oxymask 6.0 151/68 (95) Nasal Cannula 04/18/17 09:57 106 04/18/17 08:00 37.0 96 16 160/71 (100) 93 Oxymask 6.0 158/55 (89) 04/18/17 08:00 Nasal Cannula 6.0 04/18/17 06:00 96 6 149/63 (97) 91 122/56 (82) 04/18/17 05:30 102 18 158/63 (105) 91 137/57 04/18/17 05:00 97 17 157/60 (81) 95 142/52 (75) 04/18/17 04:30 98 17 139/60 (81) 94 125/49 (71) 04/18/17 04:00 Nasal Cannula 6.0 04/18/17 04:00 37.2 88 18 148/68 (102) 92 149/55 (79) 04/18/17 03:30 86 15 153/63 (89) 90 157/56 (79) 04/18/17 03:00 105 19 152/64 (96) 95 151/55 (78) 04/18/17 02:30 95 13 165/65 (90) 95 153/56 (81) 04/18/17 02:00 96 14 157/66 (100) 93 153/55 (81) 04/18/17 01:30 100 18 156/81 (80) 91 154/55 (81) 04/18/17 01:00 96 19 161/67 (107) 94 166/55 (80) 04/18/17 00:30 98 18 165/82 (95) 95 175/67 (91) 04/18/17 00:01 Nasal Cannula 6.0 04/18/17 00:00 36.9 91 15 160/70 (99) 96 163/55 (83) 04/17/17 23:30 84 14 166/72 (88) 94 183/57 (87) 04/17/17 23:00 83 16 141/57 (79) 95 127/46 (70) Last Recorded Weight-Kilograms: 68.800 Physical Exam Constitutional: Level of Distress: NAD Lungs: Auscultation: breath sounds normal Cardiovascular: Heart Auscultation: no murmurs, no rubs, tachycardia, irregular rate rhythm Extremities: no edema Data Laboratory Results: Last 24 Hours Test 04/17/17 10:30 04/17/17 10:38 04/17/17 15:51 04/17/17 15:52 Blood Gas Sample Site Art Line Bedside Blood Gas pH (LAB) 7.44 Bedside Blood Gas pCO2 (LAB) 29 mmHg Bedside Blood Gas pO2 (LAB) 67 mmHg Bedside Blood Gas HCO3 (LAB) 19 meq/L Bedside Blood Gas Total CO2 20 mEq/l Bedside Blood Gas Base Excess (LAB) -5.0 meq/L Bedside Blood Gas O2 Saturation 94.0 % Epi Test NA Oxygen Delivery Device Ventilator Bedside FiO2 40 % Blood Gas PEEP 5 Prothrombin Time 12.0 SECONDS 12.0 SECONDS Prothromb Time International Ratio 1.1 1.1 Activated Partial Thromboplast Time 25.1 SECONDS 27.1 SECONDS Partial Thromboplastin Ratio 1.0 1.0 Sodium Level 140 mmol/L 137 mmol/L Potassium Level 4.8 mmol/L 4.6 mmol/L Chloride Level 110 mmol/L 108 mmol/L Carbon Dioxide Level 20 mmol/L 22 mmol/L Anion Gap 10.0 mmol/L 7.0 mmol/L Blood Urea Nitrogen 61 mg/dl 64 mg/dl Creatinine 3.40 mg/dl 3.50 mg/dl Est Creatinine Clear Calc Drug Dose 22.8 ml/min 22.1 ml/min Estimated GFR () 21.0 20.3 Estimated GFR (Non- 18.2 17.5 BUN/Creatinine Ratio 17.9 18.2 Random Glucose 122 mg/dl 230 mg/dl Calcium Level 8.0 mg/dl 8.3 mg/dl Ionized Calcium 0.98 mmol/l 1.06 mmol/l Magnesium Level 1.9 mg/dl 2.4 mg/dl Troponin I 0.395 ng/ml Lipase 957 U/L Test 04/17/17 16:03 04/17/17 16:05 04/17/17 19:53 04/17/17 20:14 Bedside Glucose 255 mg/dl 245 mg/dl 205 mg/dl Prothrombin Time 11.9 SECONDS Prothromb Time International Ratio 1.1 Activated Partial Thromboplast Time 26.5 SECONDS Partial Thromboplastin Ratio 1.0 Sodium Level 138 mmol/L Potassium Level 4.5 mmol/L Chloride Level 107 mmol/L Carbon Dioxide Level 20 mmol/L Anion Gap 11.0 mmol/L Blood Urea Nitrogen 65 mg/dl Creatinine 3.50 mg/dl Est Creatinine Clear Calc Drug Dose 22.1 ml/min Estimated GFR () 20.3 Estimated GFR (Non- 17.5 BUN/Creatinine Ratio 18.7 Random Glucose 174 mg/dl Calcium Level 8.5 mg/dl Ionized Calcium 1.06 mmol/l Magnesium Level 2.3 mg/dl Troponin I 0.349 ng/ml Test 04/17/17 20:17 04/17/17 23:49 04/18/17 00:41 04/18/17 01:59 Bedside Glucose 182 mg/dl 167 mg/dl Prothrombin Time 13.4 SECONDS Prothromb Time International Ratio 1.2 Activated Partial Thromboplast Time 30.1 SECONDS Partial Thromboplastin Ratio 1.2 Ionized Calcium 0.93 mmol/l Sodium Level 141 mmol/L Potassium Level 4.3 mmol/L Chloride Level 109 mmol/L Carbon Dioxide Level 21 mmol/L Anion Gap 11.0 mmol/L Blood Urea Nitrogen 60 mg/dl Creatinine 3.40 mg/dl Est Creatinine Clear Calc Drug Dose 22.8 ml/min Estimated GFR () 21.0 Estimated GFR (Non- 18.2 BUN/Creatinine Ratio 17.7 Random Glucose 159 mg/dl Calcium Level 8.2 mg/dl Magnesium Level 2.3 mg/dl Test 04/18/17 03:45 04/18/17 06:16 White Blood Count 11.04 K/uL Red Blood Count 2.59 M/uL Hemoglobin 8.1 g/dL Hematocrit 23.1 % Mean Corpuscular Volume 89.2 fL Mean Corpuscular Hemoglobin 31.3 pg Mean Corpuscular Hemoglobin Concent 35.1 g/dl Platelet Count 157 K/uL Mean Platelet Volume 11.1 fL Neutrophils (%) (Auto) 80.4 % Lymphocytes (%) (Auto) 11.3 % Monocytes (%) (Auto) 7.7 % Eosinophils (%) (Auto) 0.1 % Basophils (%) (Auto) 0.1 % Neutrophils # (Auto) 8.88 K/uL Lymphocytes # (Auto) 1.25 K/uL Monocytes # (Auto) 0.85 K/uL Eosinophils # (Auto) 0.01 K/uL Basophils # (Auto) 0.01 K/uL RDW Standard Deviation 39.2 fL RDW Coefficient of Variation 12.1 % Immature Granulocyte % (Auto) 0.4 % Immature Granulocyte # (Auto) 0.04 K/uL Red Blood Cell Morphology Unremarkable Sodium Level 140 mmol/L Potassium Level 4.1 mmol/L Chloride Level 109 mmol/L Carbon Dioxide Level 22 mmol/L Anion Gap 9.0 mmol/L Blood Urea Nitrogen 60 mg/dl Creatinine 3.40 mg/dl Est Creatinine Clear Calc Drug Dose 22.8 ml/min Estimated GFR () 21.0 Estimated GFR (Non- 18.2 BUN/Creatinine Ratio 17.7 Random Glucose 164 mg/dl Calcium Level 7.7 mg/dl Phosphorus Level 3.8 mg/dl Magnesium Level 2.2 mg/dl Total Bilirubin 0.6 mg/dl Direct Bilirubin 0.1 mg/dl Aspartate Amino Transf (AST/SGOT) 65 U/L Alanine Aminotransferase (ALT/SGPT) 115 U/L Alkaline Phosphatase 81 U/L Total Protein 6.2 gm/dl Albumin 2.7 gm/dl Bedside Glucose 193 mg/dl EKG: An electrocardiogram from 950 this a.m. shows atrial fibrillation with a heart rate of 107 bpm. Telemetry reviewed: She developed atrial fibrillation this morning with a rapid heart rate. She is now being treated with intravenous diltiazem and intravenous heparin. Assessment and Plan #1. Asystole: She had documentation of sinus arrest, although I cannot identify a specific cause now that she has documentation of atrial fibrillation is likely she has sick sinus syndrome. She has not had any significant bradycardia over the past 24 hours however she will need a pacemaker. I will tentatively plan on arranging that for 04/19/2017. I discussed pacemaker implantation with her in detail including the indications, procedure, risks and alternatives and she understands and agrees to proceed. Consent obtained. #2. Atrial fibrillation: Possibly a component of sick sinus syndrome. This should not change our approach to plan pacemaker implantation tomorrow, I would still implant a dual-chamber pacemaker although we can't test atrial capture if she remains in atrial fibrillation. She may not however. I agree with diltiazem for heart rate control (her pacemaker is functioning well), and she is going to be started on heparin. We need to be careful with heparin due to her known pericardial effusion of unknown cause. 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 #3. Temporary pacemaker: I tested the threshold and it is very good, 0.7 V. It is set for a demand mode at 50 bpm but has not been required since before yesterday morning. Thank you for allowing me to participate in her care.
[2017-04-18] MEDS: PANTOprazole INJ 40 MG in SYRINGE 0 ML IV SCH (11:27)
[2017-04-18] MEDS: HEPARIN 25,000 UNIT/500ML D5W 500 ML IV PRN ×2 (11:29→18:41)
--- NOTE | 2017-04-18 13:09 | Critical Care Progress Note ---
Critical Care Progress Note Date of Service Apr 18, 2017. ICU Day ICU Day Number: [address] Tobin Subjective 61 yo transgender male to female with multiple medical comorbidities notably HIV admitted with asystole. She was given a temporary pacemaker and yesterday the rate was decreased to 72, the patient is at higher rate than the pacer. She was extubated yesterday but kidney function remains poor Cr 3.4 despite UO 1.43 ml/Kg BW-hr She is sitting up in bed with no complaints. She wanted to O2 off but her saturation is around 91-89%. Will remove A line. She complains of no pain. I explained what is going on and she had no questions. She has tolerated O2 via NC for 24 hours Objective General Sitting p in bed no distress HENT no JVD no LN IJ pacemaker is in place no bleed or discharge at site lungs b/l CTA heart irreg irreg no murmurs abdomen soft non tender ext minimal edema LE, RUE has a line and has 7x5 cm skin necrosis with nitropaste on there. neurologic A A Ox 3no focal motor deficits Current SOFA Score SOFA Score Response (Comments) Value PaO2/FiO2 (mmHg) < 400 1 SaO2 / FIO2 221 - 301 1 Platelets (x10) > 150 0 Bilirubin (mg/dL) < 1.2 0 Dixon Coma Score 15 0 Level of Hypotension No Hypotension 0 Creatinine (mg/dL) 2.0 - 3.4 2 Total 4 Previous SOFA Scores 8 Assessment & Plan 61 yo transgender female patient who is admitted with recurrent asystole. known to have HIV, HTN and above medical comorbidities. The patient has had a similar episode in 2016 ma. Back then it was blamed on cardizem and the medication was stopped with resolution of symptoms. She was not given a permanent pacemaker. At this time it may very well be a sick sinus syndrome She received a pacemaker and is now having [place] NSR >70/min. Tox screen so far negative no sedatives no pressors on board developed A fib PPM 10 mA rate 70/min VVI in place appreciate cardiology input trend troponin until it peaks daily ECG Pacemaker implantation in am Respiratory Off MV on O2 NC Will get ABG Will get CXR GI pantoprazole for GI prophylaxis advanced diet to heart healthy 2 gm Na and DM lipase increased. Will get US of abdomen to check pancreas and cholelithiasis. ID No foci of infection Will stop aztreonam hold vancomycin and levaquin for possible sepsis. doses adjusted by pharmacy for renal clearance procalcitonin level 0.11. Since she is going for a pacemaker implantation Will keep vancomycin and will complete a levaquin course renal She has a UO of 1.49 ml/Kg BW This may be the polyuric phase of ATN recovery. Will check urine Na and I creatinine to decide on fluid resuscitation or not FU and replete lytes K slightly elevated at 5.2 insulin drip to control sugar 140-180 heparin SC 5000 DVT prophylaxis changed to heparin drip given A fib hold antiretrovirals until awake and lipase normalized. COnsider ID consult tomorrow FU lipase Will get US abdomen appreciate GI input. appreciate cardiology help needs velazquez catheter pacemaker will remove A line now. patient is critically ill and I spent a total of 45 minutes of CC time managing her today exclusive of procedural time Consults & Procedures Consultants: cardiology Procedures: pacemaker insertion R IJ VVI transvenoue intubated arctic protocol R Radial A line velzaquez Data Medications: Current Inpatient Medications Medications (Trade) Dose Ordered Sig/Carlin Route Start Time Stop Time Status Last Admin Dose Admin Miscellaneous Information (Consult Glycemic Management Pharmacy) 1 ea UD PRN N/A 04/16/17 15:00 05/16/17 14:59 Norepinephrine Bitartrate 8 mg/ Dextrose 508 ml @ 0 mls/hr Q0M PRN IV 04/16/17 16:30 05/16/17 16:29 04/16/17 17:07 2.7 MLS/HR Pantoprazole Sodium 40 mg/ Syringe 10 ml @ 5 mls/min DAILY@11 IV 04/16/17 18:00 05/16/17 17:59 04/18/17 11:27 5 MLS/MIN Vancomycin HCl (Consult) 1 ea UD PRN N/A 04/16/17 17:15 05/16/17 17:14 Aztreonam (Consult) 1 ea UD PRN N/A 04/16/17 17:15 05/16/17 17:14 Levofloxacin (Consult) 1 ea UD PRN N/A 04/16/17 17:15 05/16/17 17:14 Nitroglycerin (Nitroglycerin 2% Oint) 2 inch Q6H EXT 04/16/17 19:30 05/16/17 19:29 04/18/17 08:13 2 INCH Midazolam HCl (Versed Inj) 2 mg Q1H PRN IV 04/16/17 23:45 05/16/17 23:44 Heparin Sodium (Porcine) (Heparin 10 Unit/ ml 5 ml Flush) 5 ml PRN PRN FLUSH 04/17/17 00:30 05/17/17 00:29 Insulin Aspart (novoLOG ASPART) SLIDING SCALE If C... ACHS SC 04/17/17 06:45 05/17/17 06:44 04/18/17 10:01 1 UNITS Glucose (Glucose 40% Gel) UD PRN PO 04/17/17 05:00 05/17/17 04:59 Glucose (Glucose Chew Tab) 1 tabs UD PRN PO 04/17/17 05:00 05/17/17 04:59 Dextrose (Dextrose 50% 50ML Syringe) 50 ml UD PRN IV 04/17/17 05:00 05/17/17 04:59 Glucagon (Glucagon Inj) 1 mg UD PRN SQ 04/17/17 05:00 05/17/17 04:59 Levofloxacin 750 mg/Prmx 100 ml @ 100 mls/hr Q2D@1800 IV 04/18/17 18:00 04/23/17 17:59 Vancomycin HCl 1000 mg/Sodium Chloride 270 ml @ 125 mls/hr Q24H IV 04/17/17 10:00 04/23/17 09:59 Future Hold 04/18/17 09:59 125 MLS/HR Hydralazine HCl (HydrALAZINE INJ) 20 mg Q4 PRN IV. 04/17/17 12:15 05/17/17 12:14 04/18/17 00:40 20 MG Amlodipine Besylate (Norvasc Tab) 10 mg QAM PO 04/18/17 09:00 05/18/17 08:59 04/18/17 08:13 10 MG Acetaminophen (Tylenol Tab) 650 mg Q6H PRN PO 04/17/17 20:00 05/17/17 19:59 Heparin Sodium/ Dextrose 500 ml @ 9 mls/hr Q24H PRN IV 04/18/17 10:45 04/19/17 04:00 04/18/17 11:29 16 MLS/HR Lactated Ringer's 1,000 ml @ 15 mls/hr Q24H ONCE IV 04/19/17 06:00 04/20/17 05:59 Miscellaneous (Stop Order) 1 ea TODAY@0400 ONCE N/A 04/19/17 04:00 04/19/17 04:01 Vancomycin HCl 1000 mg/Sodium Chloride 270 ml @ 125 mls/hr TODAY@0700 ONCE IV 04/19/17 07:00 04/19/17 09:09 Vital Signs: Date Time Temp Pulse Resp B/P (MAP) Pulse Ox O2 Delivery O2 Flow Rate FiO2 04/18/17 10:00 37.0 105 16 151/73 (99) 91 Oxymask 6.0 151/68 (95) Nasal Cannula 04/18/17 09:57 106 04/18/17 08:00 37.0 96 16 160/71 (100) 93 Oxymask 6.0 158/55 (89) 04/18/17 08:00 Nasal Cannula 6.0 04/18/17 06:00 96 6 149/63 (97) 91 122/56 (82) 04/18/17 05:30 102 18 158/63 (105) 91 137/57 04/18/17 05:00 97 17 157/60 (81) 95 142/52 (75) 04/18/17 04:30 98 17 139/60 (81) 94 125/49 (71) 04/18/17 04:00 Nasal Cannula 6.0 04/18/17 04:00 37.2 88 18 148/68 (102) 92 149/55 (79) 04/18/17 03:30 86 15 153/63 (89) 90 157/56 (79) 04/18/17 03:00 105 19 152/64 (96) 95 151/55 (78) 04/18/17 02:30 95 13 165/65 (90) 95 153/56 (81) 04/18/17 02:00 96 14 157/66 (100) 93 153/55 (81) 04/18/17 01:30 100 18 156/81 (80) 91 154/55 (81) 04/18/17 01:00 96 19 161/67 (107) 94 166/55 (80) 04/18/17 00:30 98 18 165/82 (95) 95 175/67 (91) 04/18/17 00:01 Nasal Cannula 6.0 04/18/17 00:00 36.9 91 15 160/70 (99) 96 163/55 (83) 04/17/17 23:30 84 14 166/72 (88) 94 183/57 (87) 04/17/17 23:00 83 16 141/57 (79) 95 127/46 (70) 04/17/17 22:00 85 20 153/66 (113) 89 133/46 (73) 04/17/17 21:00 84 6 140/59 (72) 94 136/49 (69) 04/17/17 20:00 37.1 81 20 155/71 (92) 90 168/58 (84) 04/17/17 20:00 Nasal Cannula 4.0 04/17/17 19:00 79 21 156/64 (97) 91 161/55 (80) 04/17/17 18:00 38.0 81 23 159/70 (99) 93 Oxymask 5.0 121/57 (78) 04/17/17 16:00 37.9 82 18 147/75 (99) 96 Oxymask 5.0 144/58 (86) 04/17/17 16:00 96 Oxymask 5.0 04/17/17 14:00 37.0 79 18 168/65 (99) 94 Nasal Cannula 4.0 158/54 (88) Laboratory Results: Last 24 Hours Test 04/17/17 15:51 04/17/17 15:52 04/17/17 16:03 04/17/17 16:05 Prothrombin Time 12.0 SECONDS Prothromb Time International Ratio 1.1 Activated Partial Thromboplast Time 27.1 SECONDS Partial Thromboplastin Ratio 1.0 Sodium Level 137 mmol/L Potassium Level 4.6 mmol/L Chloride Level 108 mmol/L Carbon Dioxide Level 22 mmol/L Anion Gap 7.0 mmol/L Blood Urea Nitrogen 64 mg/dl Creatinine 3.50 mg/dl Est Creatinine Clear Calc Drug Dose 22.1 ml/min Estimated GFR () 20.3 Estimated GFR (Non- 17.5 BUN/Creatinine Ratio 18.2 Random Glucose 230 mg/dl Calcium Level 8.3 mg/dl Ionized Calcium 1.06 mmol/l Magnesium Level 2.4 mg/dl Bedside Glucose 255 mg/dl 245 mg/dl Test 04/17/17 19:53 04/17/17 20:14 04/17/17 20:17 04/17/17 23:49 Prothrombin Time 11.9 SECONDS 13.4 SECONDS Prothromb Time International Ratio 1.1 1.2 Activated Partial Thromboplast Time 26.5 SECONDS 30.1 SECONDS Partial Thromboplastin Ratio 1.0 1.2 Sodium Level 138 mmol/L Potassium Level 4.5 mmol/L Chloride Level 107 mmol/L Carbon Dioxide Level 20 mmol/L Anion Gap 11.0 mmol/L Blood Urea Nitrogen 65 mg/dl Creatinine 3.50 mg/dl Est Creatinine Clear Calc Drug Dose 22.1 ml/min Estimated GFR () 20.3 Estimated GFR (Non- 17.5 BUN/Creatinine Ratio 18.7 Random Glucose 174 mg/dl Calcium Level 8.5 mg/dl Ionized Calcium 1.06 mmol/l 0.93 mmol/l Magnesium Level 2.3 mg/dl Troponin I 0.349 ng/ml Bedside Glucose 205 mg/dl 182 mg/dl Test 04/18/17 00:41 04/18/17 01:59 04/18/17 03:45 04/18/17 06:16 Sodium Level 141 mmol/L 140 mmol/L Potassium Level 4.3 mmol/L 4.1 mmol/L Chloride Level 109 mmol/L 109 mmol/L Carbon Dioxide Level 21 mmol/L 22 mmol/L Anion Gap 11.0 mmol/L 9.0 mmol/L Blood Urea Nitrogen 60 mg/dl 60 mg/dl Creatinine 3.40 mg/dl 3.40 mg/dl Est Creatinine Clear Calc Drug Dose 22.8 ml/min 22.8 ml/min Estimated GFR () 21.0 21.0 Estimated GFR (Non- 18.2 18.2 BUN/Creatinine Ratio 17.7 17.7 Random Glucose 159 mg/dl 164 mg/dl Calcium Level 8.2 mg/dl 7.7 mg/dl Magnesium Level 2.3 mg/dl 2.2 mg/dl Bedside Glucose 167 mg/dl 193 mg/dl White Blood Count 11.04 K/uL Red Blood Count 2.59 M/uL Hemoglobin 8.1 g/dL Hematocrit 23.1 % Mean Corpuscular Volume 89.2 fL Mean Corpuscular Hemoglobin 31.3 pg Mean Corpuscular Hemoglobin Concent 35.1 g/dl Platelet Count 157 K/uL Mean Platelet Volume 11.1 fL Neutrophils (%) (Auto) 80.4 % Lymphocytes (%) (Auto) 11.3 % Monocytes (%) (Auto) 7.7 % Eosinophils (%) (Auto) 0.1 % Basophils (%) (Auto) 0.1 % Neutrophils # (Auto) 8.88 K/uL Lymphocytes # (Auto) 1.25 K/uL Monocytes # (Auto) 0.85 K/uL Eosinophils # (Auto) 0.01 K/uL Basophils # (Auto) 0.01 K/uL RDW Standard Deviation 39.2 fL RDW Coefficient of Variation 12.1 % Immature Granulocyte % (Auto) 0.4 % Immature Granulocyte # (Auto) 0.04 K/uL Red Blood Cell Morphology Unremarkable Phosphorus Level 3.8 mg/dl Total Bilirubin 0.6 mg/dl Direct Bilirubin 0.1 mg/dl Aspartate Amino Transf (AST/SGOT) 65 U/L Alanine Aminotransferase (ALT/SGPT) 115 U/L Alkaline Phosphatase 81 U/L Total Protein 6.2 gm/dl Albumin 2.7 gm/dl Test 04/18/17 11:19 Activated Partial Thromboplast Time 26.4 SECONDS Partial Thromboplastin Ratio 1.0 Bedside Glucose 212 mg/dl
[2017-04-18 13:21] LABS: ISTAT ARTERIAL BLOOD GAS HCO3 18 meq/L (19-24); ISTAT ARTERIAL BLOOD GAS PCO2 24 mmHg (35-46); ISTAT ARTERIAL BLOOD GAS PO2 53 mmHg (80-95); ISTAT ARTERIAL BLOOD GAS pH 7.48 (7.35-7.45); ISTAT CARBON DIOXIDE 19 mEq/l (24-31); ISTAT DELIVERY SYSTEM Cannula; ISTAT SITE Art Line
--- NOTE | 2017-04-18 13:53 | DIAGNOSTIC IMAGING REPORT ---
CHEST ONE VIEW PORTABLE CLINICAL HISTORY: hypoxia dyspnea COMPARISON STUDY: 04/18/2017 FINDINGS: Moderate stable cardia megaly. Persistent prominence of pulmonary vasculature perhaps slightly diminished. Consolidative change versus effusion left lung base unaltered. Temporary cardiac pacer in good position. IMPRESSION: 1. Congestive failure slightly improved from the prior study. 2. Slight increase in volume of a left basilar effusion. The above report was generated using voice recognition software. It may contain grammatical, syntax or spelling errors. Electronically signed by: Davion Lopez M.D. 04/18/2017 1:51 PM Dictated Date/Time: 04/18/2017 1:50 PM
--- NOTE | 2017-04-18 16:18 | Progress Note ---
Subjective Date of Service: Apr 18, 2017. Subjective Pt evaluation today including: conversation w/ patient, physical exam, lab review, review of inpatient medication list Pain: no pain PO Intake: adequate Voiding: velazquez catheter in place patient breathing comfortably after being extubated yesterday reviewed labs, Cr remains elevated but non-oliguric UO plan for pacemaker tomorrow Problem List Medical Problems: (1) Acute renal failure Status: Acute (2) Bradycardia Status: Acute (3) Cardiopulmonary arrest Status: Acute (4) GI bleed Status: Acute (5) Heart block Status: Acute (6) Renal failure Status: Acute Review of Systems Constitutional: + weakness, + fatigue Cardiac: + chest pain (from compressions) All Other Systems: Reviewed and Negative Medications Current Inpatient Medications Medications (Trade) Dose Ordered Sig/Carlin Route Start Time Stop Time Status Last Admin Dose Admin Miscellaneous Information (Consult Glycemic Management Pharmacy) 1 UD PRN N/A 04/16/17 15:00 05/16/17 14:59 Norepinephrine Bitartrate 8 mg/ Dextrose 508 ml @ 0 mls/hr Q0M PRN IV 04/16/17 16:30 05/16/17 16:29 04/16/17 17:07 2.7 MLS/HR Pantoprazole Sodium 40 mg/ Syringe 10 ml @ 5 mls/min DAILY@11 IV 04/16/17 18:00 05/16/17 17:59 04/18/17 11:27 5 MLS/MIN Vancomycin HCl (Consult) 1 UD PRN N/A 04/16/17 17:15 05/16/17 17:14 Levofloxacin (Consult) 1 UD PRN N/A 04/16/17 17:15 05/16/17 17:14 Nitroglycerin (Nitroglycerin 2% Oint) 2 inch Q6H EXT 04/16/17 19:30 05/16/17 19:29 04/18/17 14:15 2 INCH Midazolam HCl (Versed Inj) 2 mg Q1H PRN IV 04/16/17 23:45 05/16/17 23:44 Heparin Sodium (Porcine) (Heparin 10 Unit/ ml 5 ml Flush) 5 ml PRN PRN FLUSH 04/17/17 00:30 05/17/17 00:29 Insulin Aspart (novoLOG ASPART) SLIDING SCALE If C... ACHS SC 04/17/17 06:45 05/17/17 06:44 04/18/17 12:32 2 UNITS Glucose (Glucose 40% Gel) UD PRN PO 04/17/17 05:00 05/17/17 04:59 Glucose (Glucose Chew Tab) 1 tabs UD PRN PO 04/17/17 05:00 05/17/17 04:59 Dextrose (Dextrose 50% 50ML Syringe) 50 ml UD PRN IV 04/17/17 05:00 05/17/17 04:59 Glucagon (Glucagon Inj) 1 mg UD PRN SQ 04/17/17 05:00 05/17/17 04:59 Levofloxacin 750 mg/Prmx 100 ml @ 100 mls/hr Q2D@1800 IV 04/18/17 18:00 04/23/17 17:59 Vancomycin HCl 1000 mg/Sodium Chloride 270 ml @ 125 mls/hr Q24H IV 04/17/17 10:00 04/23/17 09:59 Future Hold 04/18/17 09:59 125 MLS/HR Hydralazine HCl (HydrALAZINE INJ) 20 mg Q4 PRN IV. 04/17/17 12:15 05/17/17 12:14 04/18/17 00:40 20 MG Amlodipine Besylate (Norvasc Tab) 10 mg QAM PO 04/18/17 09:00 05/18/17 08:59 04/18/17 08:13 10 MG Acetaminophen (Tylenol Tab) 650 mg Q6H PRN PO 04/17/17 20:00 05/17/17 19:59 Heparin Sodium/ Dextrose 500 ml @ 9 mls/hr Q24H PRN IV 04/18/17 10:45 04/19/17 04:00 04/18/17 11:29 16 MLS/HR Lactated Ringer's 1,000 ml @ 15 mls/hr Q24H ONCE IV 04/19/17 06:00 04/20/17 05:59 Miscellaneous (Stop Order) 1 ea TODAY@0400 ONCE N/A 04/19/17 04:00 04/19/17 04:01 Vancomycin HCl 1000 mg/Sodium Chloride 270 ml @ 125 mls/hr TODAY@0700 ONCE IV 04/19/17 07:00 04/19/17 09:09 Insulin Glargine (Lantus Solostar Pen) SEE PROTOCOL TEXT BID SC 04/18/17 21:00 05/18/17 20:59 Objective Vital Signs Date Time Temp Pulse Resp B/P (MAP) Pulse Ox O2 Delivery O2 Flow Rate FiO2 04/18/17 14:00 37.0 97 20 144/69 (94) 90 Nasal Cannula 6.0 04/18/17 12:00 37.0 96 16 155/73 (100) 94 Nasal Cannula 6.0 123/70 (87) 04/18/17 12:00 Nasal Cannula 6.0 04/18/17 10:00 37.0 105 16 151/73 (99) 91 Oxymask 6.0 151/68 (95) Nasal Cannula 04/18/17 09:57 106 04/18/17 08:00 37.0 96 16 160/71 (100) 93 Oxymask 6.0 158/55 (89) 04/18/17 08:00 Nasal Cannula 6.0 04/18/17 06:00 96 6 149/63 (97) 91 122/56 (82) 04/18/17 05:30 102 18 158/63 (105) 91 137/57 04/18/17 05:00 97 17 157/60 (81) 95 142/52 (75) 04/18/17 04:30 98 17 139/60 (81) 94 125/49 (71) 04/18/17 04:00 Nasal Cannula 6.0 04/18/17 04:00 37.2 88 18 148/68 (102) 92 149/55 (79) 04/18/17 03:30 86 15 153/63 (89) 90 157/56 (79) 04/18/17 03:00 105 19 152/64 (96) 95 151/55 (78) 04/18/17 02:30 95 13 165/65 (90) 95 153/56 (81) 04/18/17 02:00 96 14 157/66 (100) 93 153/55 (81) 04/18/17 01:30 100 18 156/81 (80) 91 154/55 (81) 04/18/17 01:00 96 19 161/67 (107) 94 166/55 (80) 04/18/17 00:30 98 18 165/82 (95) 95 175/67 (91) 04/18/17 00:01 Nasal Cannula 6.0 04/18/17 00:00 36.9 91 15 160/70 (99) 96 163/55 (83) 04/17/17 23:30 84 14 166/72 (88) 94 183/57 (87) 04/17/17 23:00 83 16 141/57 (79) 95 127/46 (70) 04/17/17 22:00 85 20 153/66 (113) 89 133/46 (73) 04/17/17 21:00 84 6 140/59 (72) 94 136/49 (69) 04/17/17 20:00 37.1 81 20 155/71 (92) 90 168/58 (84) 04/17/17 20:00 Nasal Cannula 4.0 04/17/17 19:00 79 21 156/64 (97) 91 161/55 (80) 04/17/17 18:00 38.0 81 23 159/70 (99) 93 Oxymask 5.0 121/57 (78) Physical Exam General Appearance: WD/WN, no apparent distress Neck: supple, no adenopathy, no JVD, trachea midline Respiratory/Chest: chest non-tender, lungs clear, normal breath sounds, no respiratory distress, no accessory muscle use Cardiovascular: regular rate, rhythm, no edema, no gallop, no JVD, no murmur Abdomen: normal bowel sounds, non tender, soft, no organomegaly Extremities: normal range of motion, non-tender, normal inspection, no pedal edema, no calf tenderness, pelvis stable Neurologic/Psychiatric: block feeder II-XII nml as tested, no motor/sensory deficits, alert, normal mood/affect, oriented x 3 Skin: normal color, warm/dry, no rash Laboratory Results Last 24 Hours Test 04/17/17 19:53 04/17/17 20:14 04/17/17 20:17 04/17/17 23:49 Prothrombin Time 11.9 SECONDS 13.4 SECONDS Prothromb Time International Ratio 1.1 1.2 Activated Partial Thromboplast Time 26.5 SECONDS 30.1 SECONDS Partial Thromboplastin Ratio 1.0 1.2 Sodium Level 138 mmol/L Potassium Level 4.5 mmol/L Chloride Level 107 mmol/L Carbon Dioxide Level 20 mmol/L Anion Gap 11.0 mmol/L Blood Urea Nitrogen 65 mg/dl Creatinine 3.50 mg/dl Est Creatinine Clear Calc Drug Dose 22.1 ml/min Estimated GFR () 20.3 Estimated GFR (Non- 17.5 BUN/Creatinine Ratio 18.7 Random Glucose 174 mg/dl Calcium Level 8.5 mg/dl Ionized Calcium 1.06 mmol/l 0.93 mmol/l Magnesium Level 2.3 mg/dl Troponin I 0.349 ng/ml Bedside Glucose 205 mg/dl 182 mg/dl Test 04/18/17 00:41 04/18/17 01:59 04/18/17 03:45 04/18/17 06:16 Sodium Level 141 mmol/L 140 mmol/L Potassium Level 4.3 mmol/L 4.1 mmol/L Chloride Level 109 mmol/L 109 mmol/L Carbon Dioxide Level 21 mmol/L 22 mmol/L Anion Gap 11.0 mmol/L 9.0 mmol/L Blood Urea Nitrogen 60 mg/dl 60 mg/dl Creatinine 3.40 mg/dl 3.40 mg/dl Est Creatinine Clear Calc Drug Dose 22.8 ml/min 22.8 ml/min Estimated GFR () 21.0 21.0 Estimated GFR (Non- 18.2 18.2 BUN/Creatinine Ratio 17.7 17.7 Random Glucose 159 mg/dl 164 mg/dl Calcium Level 8.2 mg/dl 7.7 mg/dl Magnesium Level 2.3 mg/dl 2.2 mg/dl Bedside Glucose 167 mg/dl 193 mg/dl White Blood Count 11.04 K/uL Red Blood Count 2.59 M/uL Hemoglobin 8.1 g/dL Hematocrit 23.1 % Mean Corpuscular Volume 89.2 fL Mean Corpuscular Hemoglobin 31.3 pg Mean Corpuscular Hemoglobin Concent 35.1 g/dl Platelet Count 157 K/uL Mean Platelet Volume 11.1 fL Neutrophils (%) (Auto) 80.4 % Lymphocytes (%) (Auto) 11.3 % Monocytes (%) (Auto) 7.7 % Eosinophils (%) (Auto) 0.1 % Basophils (%) (Auto) 0.1 % Neutrophils # (Auto) 8.88 K/uL Lymphocytes # (Auto) 1.25 K/uL Monocytes # (Auto) 0.85 K/uL Eosinophils # (Auto) 0.01 K/uL Basophils # (Auto) 0.01 K/uL RDW Standard Deviation 39.2 fL RDW Coefficient of Variation 12.1 % Immature Granulocyte % (Auto) 0.4 % Immature Granulocyte # (Auto) 0.04 K/uL Red Blood Cell Morphology Unremarkable Phosphorus Level 3.8 mg/dl Total Bilirubin 0.6 mg/dl Direct Bilirubin 0.1 mg/dl Aspartate Amino Transf (AST/SGOT) 65 U/L Alanine Aminotransferase (ALT/SGPT) 115 U/L Alkaline Phosphatase 81 U/L Total Protein 6.2 gm/dl Albumin 2.7 gm/dl Test 04/18/17 11:19 04/18/17 12:45 04/18/17 13:08 04/18/17 14:20 Activated Partial Thromboplast Time 26.4 SECONDS Partial Thromboplastin Ratio 1.0 Bedside Glucose 212 mg/dl Urine Random Creatinine 88.0 mg/dl Urine Random Sodium 37 mEq/L Blood Gas Sample Site Art Line Bedside Blood Gas pH (LAB) 7.48 Bedside Blood Gas pCO2 (LAB) 24 mmHg Bedside Blood Gas pO2 (LAB) 53 mmHg Bedside Blood Gas HCO3 (LAB) 18 meq/L Bedside Blood Gas Total CO2 19 mEq/l Bedside Blood Gas Base Excess (LAB) -5.0 meq/L Bedside Blood Gas O2 Saturation 91.0 % Epi Test NA Oxygen Delivery Device Cannula Lipase 882 U/L Assessment and Plan 61 y/o M who was admitted to the ICU s/p asystolic and cardiac arrest with multiple rounds of compressions. - Cardiac arrest due to sinus arrest currently paced with temporary pacer, vitals stable plan for permanent pacemaker on Thursday 04/19 echo with preserved EF of 65-70% keep in ICU due to pacing - Acute respiratory failure/arrest secondary to cardiac arrest extubated 04/17, breathing well today on 6L - LEEROY on CKD stage III: Cr remains high at 3.3-3.4 likely ATN from cardiac arrest and poor kidney perfusion adequate UO, non-oliguric look for renal function to improve over next several days as ATN resolves K stable at 4.1 - Anemia: H/H stable, no signs of bleeding, hold on transfusion - HIV: tx as per ICU team - Hx of transgender with hormone use full code, remain in ICU appreciate management per physician office secretary
[2017-04-18] MEDS ORDERED: LEVOFLOXACIN / D5W 750 MG in PREMIXED IN D5W 100 ML IV SCH (18:00)
[2017-04-18 18:01] LABS: PARTIAL THROMBOPLASTIN RATIO 1.1
[2017-04-18] MEDS ORDERED: HEPARIN IV BOLUS 6,000 UNIT in SYRINGE 0 ML IV ONE (19:00)
[2017-04-18] MEDS: INSULIN GLARGINE SOLOSTAR 100 UNITS/ML 3 ML PEN SC SCH (21:00)
[2017-04-19] VITALS (41 sets, daily range): BP systolic 141–185; BP diastolic 63–84; PULSE 78–106; TEMP 36.8–37.4; O2SAT 88–98; Ht 177.8 cm; Wt 66.5 kg
[2017-04-19 01:14] LABS: PARTIAL THROMBOPLASTIN RATIO 3.4
[2017-04-19] MEDS: NITROGLYCERIN OINT 2% 1GM PACKET EXT SCH ×3 (01:38→13:30)
[2017-04-19] MEDS ORDERED: [UNRECOGNIZED DRUG - REMARK] ONE (04:00)
[2017-04-19 05:11] LABS: BASO % 0.1 %; BASO ABS # 0.01 K/uL (0-0.2); EOS % 0.4 %; HEMATOCRIT 22.5 % (42-52); IG% 0.2 %; LYMPH % 14.6 %; LYMPH ABS # 1.48 K/uL (1.2-3.4); MEAN CELL VOLUME 91.8 fL (80-100); MEAN CORPUSCULAR HEMOGLOBIN 31.4 pg (25-34); MEAN CORPUSCULAR HGB CONC 34.2 g/dl (32-36); MEAN PLATELET VOLUME 10.9 fL (7.4-10.4); MONO % 8.5 %; NEUT % 76.2 %; PLATELET COUNT 151 K/uL (130-400); RED BLOOD COUNT 2.45 M/uL (4.7-6.1); WHITE BLOOD COUNT 10.11 K/uL (4.8-10.8)
[2017-04-19 05:25] LABS: PARTIAL THROMBOPLASTIN RATIO 1.8
[2017-04-19 05:41] LABS: BUN/CREATININE RATIO 19.7 (10-20); CALCIUM 7.7 mg/dl (8.5-10.1); CREATININE 3.3 mg/dl (0.60-1.40); MAGNESIUM 2.3 mg/dl (1.8-2.4); POTASSIUM 3.9 mmol/L (3.5-5.1)
[2017-04-19 05:51] LABS: PHOSPHORUS 3.1 mg/dl (2.5-4.9)
[2017-04-19 05:59] LABS: COMPLETE YES
[2017-04-19] MEDS ORDERED: VANCOMYCIN INJ 1,000 MG in SODIUM CHLORIDE 0.9% 250ML 250 ML IV ONE ×2 (06:00→07:00)
[2017-04-19] MEDS ORDERED: VANCOMYCIN 1GM/270ML NSS IV ONE (06:00)
[2017-04-19] MEDS ORDERED: LACTATED RINGER'S 1000ML 1,000 ML IV ONE (06:00)
[2017-04-19] MEDS: INSULIN ASPART 100 UNITS/ML 3 ML PEN SC SCH ×4 (06:17→21:00)
[2017-04-19 06:52] LABS: ESTIMATED AVERAGE GLUCOSE 126 mg/dl; HA1C FLAG Normal (Normal)
--- NOTE | 2017-04-19 06:55 | DIAGNOSTIC IMAGING REPORT ---
ABDOMINAL ULTRASOUND, RIGHT UPPER QUADRANT HISTORY: Elevated lipase. COMPARISON: None. FINDINGS: Exam was mildly compromised due to difficulty positioning. No hepatic lesions were identified and there was no biliary ductal dilatation. No common bile duct calculi were identified although the distal common bile duct was obscured by bowel gas. No gallbladder wall thickening was present. Small gallstones were noted within the gallbladder neck. No pericholecystic fluid was evident. There was no right hydronephrosis. The pancreas body was normal. The head and tail were partially obscured. The pancreas is suboptimally assessed by sonography. No peripancreatic fluid collection was identified. IMPRESSION: 1. Cholelithiasis. No gallbladder wall thickening. 2. Partially obscured pancreas. No peripancreatic fluid collections. Pancreas suboptimally assessed sonography. 3. No biliary ductal dilatation. Electronically signed by: Gustavo Kathleen M.D. 04/19/2017 6:54 AM Dictated Date/Time: 04/19/2017 6:51 AM
[2017-04-19] MEDS: AMLODIPINE BESYLATE 5 MG TAB PO SCH (07:24)
[2017-04-19] MEDS: INSULIN GLARGINE SOLOSTAR 100 UNITS/ML 3 ML PEN SC SCH ×2 (07:56→21:41)
[2017-04-19] MEDS ORDERED: BACITRACIN 50000 UNIT VIAL ONE (08:42)
[2017-04-19] MEDS ORDERED: BUPIVACAINE 0.5 % 5 MG/1 ML MPF 30ML VIAL ONE (08:42)
[2017-04-19] MEDS ORDERED: LIDOCAINE HCL 1% 20 ML VIAL ONE (08:42)
[2017-04-19] MEDS ORDERED: FENTANYL CITRATE INJ 50 MCG/1 ML 2 ML VIAL ONE (09:09)
[2017-04-19] MEDS ORDERED: MIDAZOLAM HCL 5 MG/ML 1 ML VIAL ONE (09:09)
[2017-04-19] MEDS ORDERED: VANCOMYCIN TROUGH ONE (09:30)
--- NOTE | 2017-04-19 13:33 | Critical Care Progress Note ---
Critical Care Progress Note Date of Service Apr 19, 2017. ICU Day ICU Day Number: [address] Guerra Subjective Patient denies any chest pain or shortness of breath this morning. No acute events overnight. Denies any abdominal pain, nausea, or vomiting. Objective GENERAL: Awake, alert, well-appearing, in no distress HENT: Normocephalic, atraumatic. EYES: Normal conjunctiva. Sclera non-icteric. NECK: Supple. IJ pacemaker in place, no bleeding or discharge RESPIRATORY: Clear to auscultation CARDIAC: Regular rate, normal rhythm. Extremities warm and well perfused. Pulses equal. ABDOMEN: Soft, non-distended. No tenderness to palpation. No rebound or guarding. No masses. RECTAL: Deferred. MUSCULOSKELETAL: Chest examination reveals no tenderness. EXTREMITIES: Calves are equal size bilaterally and non-tender. Skin necrosis over RUE measuring 7x5cm NEURO: Normal sensorium. A&O x 3 Current SOFA Score SOFA Score Response (Comments) Value PaO2/FiO2 (mmHg) < 400 1 SaO2 / FIO2 221 - 301 1 Platelets (x10) > 150 0 Bilirubin (mg/dL) < 1.2 0 Selene Coma Score 15 0 Level of Hypotension No Hypotension 0 Creatinine (mg/dL) 2.0 - 3.4 2 Total 4 Previous SOFA Scores 8 Assessment & Plan The patient is a 61 year old transgender female patient who presented to [facility] while in Asystole. The patient has a history of HIV on HAART, G6PD, and CKD Stage 3. The patient was placed on a cardiac pacemaker and Dopamine drop and her heart rate restarted. The patient was taken this morning to the cleaner laboratory equipment for permanent pacemaker placement. The patient previously had a similar episode in 2016 that was blamed on Cardizem and the medication was subsequently stopped. Neuro - A&O x 3 - CAM negative - No sedatives - No pressors on board CV - Successful permanent pacemaker placed in label machine operator at 9am - Heart in NSR this morning --> developed intermittent A fib and subsequently started on heparin drip - Cardiology on board - Troponin peaked on 04/17 at 0.395, now leveled off Resp - Initially intubated on admission, then extubated on Wednesday - NC 6L --> Titrate O2 to SpO2 > 90 via NC - ABG: pH 7.48, pCO2 24, HCO3 18 - CXR:Congestive failure slightly improved from the prior study, Slight increase in volume of a left basilar effusion. GI - Discontinue Protonix (initially placed because blood drawn from OG) - Resume heart healthy 2 gm Na and DM after pacemaker placement - Lipase improved from 957-882 - US Abdomen: Technically difficult exam due to positioning difficulty - Small gallstones in gallbladder neck but otherwise no acute findings ID - No foci of infection - D/C Aztreonam - Last dose of Levaquin tomorrow (5 days of total treatment) - 1 post op dose of Vancomycin and then discontinue (4 days total) - Procalcitonin 0.11 - Resume home Elvitegravir- Cobicistat - Emtricitabine - Tenofovir - Consult ID regarding HIV medications Renal/ - Creatinine of 3.3 (3.4 yesterday) - UO of 1.15 ml/kg/hr - Continue to monitor I/Os - Currently ordered regular diet so will not start fluids at this time - Hyperkalemia resolved - K+ 3.9 today Endo - Discontinued heparin drip, currently on Lantus with ISS Derm - Area of skin necrosis over the dorsum of the right hand measuring 7cm x 5cm - Nitropaste covering - Wound Care managing Heme - Heparin SC 5000 units TID Resident Physician Supervision Note: Dr. Mary was resident physician during care of patient. I separately evaluated patient and did history and exam. I discussed the case with the resident and generally agree with the findings and plan. We will restart HIV medication, successful pacer placement stable for downgraded to telemetry status. Reviewed elevated lipase, no abdominal pain, continue to trend. Documented By: Evens Guerra DO Consults & Procedures Consultants: cardiology Procedures: pacemaker insertion R IJ VVI transvenoue intubated [facility] protocol R Radial A line velazquez Data Medications: Current Inpatient Medications Medications (Trade) Dose Ordered Sig/Carlin Route Start Time Stop Time Status Last Admin Dose Admin Miscellaneous Information (Consult Glycemic Management Pharmacy) 1 ea UD PRN N/A 04/16/17 15:00 05/16/17 14:59 Vancomycin HCl (Consult) 1 ea UD PRN N/A 04/16/17 17:15 05/16/17 17:14 Levofloxacin (Consult) 1 ea UD PRN N/A 04/16/17 17:15 05/16/17 17:14 Nitroglycerin (Nitroglycerin 2% Oint) 2 inch Q6H EXT 04/16/17 19:30 05/16/17 19:29 04/19/17 07:24 2 INCH Heparin Sodium (Porcine) (Heparin 10 Unit/ ml 5 ml Flush) 5 ml PRN PRN FLUSH 04/17/17 00:30 05/17/17 00:29 Insulin Aspart (novoLOG ASPART) SLIDING SCALE If C... ACHS SC 04/17/17 06:45 05/17/17 06:44 04/18/17 18:09 12 UNITS Glucose (Glucose 40% Gel) UD PRN PO 04/17/17 05:00 05/17/17 04:59 Glucose (Glucose Chew Tab) 1 tabs UD PRN PO 04/17/17 05:00 05/17/17 04:59 Dextrose (Dextrose 50% 50ML Syringe) 50 ml UD PRN IV 04/17/17 05:00 05/17/17 04:59 Glucagon (Glucagon Inj) 1 mg UD PRN SQ 04/17/17 05:00 05/17/17 04:59 Levofloxacin 750 mg/Prmx 100 ml @ 100 mls/hr Q2D@1800 IV 04/18/17 18:00 04/23/17 17:59 04/18/17 18:05 100 MLS/HR Vancomycin HCl 1000 mg/Sodium Chloride 270 ml @ 125 mls/hr Q24H IV 04/17/17 10:00 04/23/17 09:59 Future Hold 04/18/17 09:59 125 MLS/HR Hydralazine HCl (HydrALAZINE INJ) 20 mg Q4 PRN IV. 04/17/17 12:15 05/17/17 12:14 04/18/17 00:40 20 MG Amlodipine Besylate (Norvasc Tab) 10 mg QAM PO 04/18/17 09:00 05/18/17 08:59 04/19/17 07:24 10 MG Acetaminophen (Tylenol Tab) 650 mg Q6H PRN PO 04/17/17 20:00 05/17/17 19:59 Lactated Ringer's 1,000 ml @ 15 mls/hr Q24H ONCE IV 04/19/17 06:00 04/20/17 05:59 04/19/17 06:02 15 MLS/HR Insulin Glargine (Lantus Solostar Pen) SEE PROTOCOL TEXT BID SC 04/18/17 21:00 05/18/17 20:59 Oxycodone HCl (Roxicodone Immediate Rel Tab) 5 mg Q4RWA PRN PO 04/19/17 10:15 05/03/17 10:14 Heparin Sodium (Porcine) (Heparin Sq 5000 Unit/0.5ml) 5,000 unit Q8 SQ 04/19/17 14:00 05/19/17 13:59 UNV Vital Signs: Date Time Temp Pulse Resp B/P (MAP) Pulse Ox O2 Delivery O2 Flow Rate FiO2 04/19/17 10:20 89 18 183/84 (117) 92 Room Air 04/19/17 10:15 87 18 185/86 (119) 93 Room Air 04/19/17 10:10 93 18 184/87 (119) 92 Room Air 04/19/17 10:00 87 18 165/80 (108) 98 Mask 6 04/19/17 07:30 Nasal Cannula 5.0 04/19/17 06:30 91 16 151/66 (94) 95 Nasal Cannula 6.0 04/19/17 06:00 91 19 152/66 (94) 96 Nasal Cannula 6.0 04/19/17 05:30 91 17 146/68 (94) 96 Nasal Cannula 6.0 04/19/17 05:00 92 20 160/69 (99) 98 Nasal Cannula 6.0 04/19/17 04:30 92 19 157/64 (95) 95 Nasal Cannula 6.0 04/19/17 04:00 36.8 96 22 156/69 (98) 95 Nasal Cannula 6.0 04/19/17 04:00 Nasal Cannula 6.0 04/19/17 03:30 90 17 160/73 (102) 97 Nasal Cannula 6.0 04/19/17 03:00 93 19 155/67 (96) 98 Nasal Cannula 6.0 04/19/17 02:30 98 23 154/67 (96) 91 Nasal Cannula 6.0 04/19/17 02:00 96 18 155/65 (95) 91 Nasal Cannula 6.0 04/19/17 01:30 97 19 150/71 (97) 92 Nasal Cannula 6.0 04/19/17 01:00 100 19 155/67 (96) 90 Nasal Cannula 6.0 04/19/17 00:30 98 20 154/65 (94) 93 Nasal Cannula 6.0 04/19/17 00:01 Nasal Cannula 6.0 04/19/17 00:00 37.4 95 15 151/64 (93) 95 Nasal Cannula 6.0 04/18/17 23:30 96 18 144/61 (88) 94 Nasal Cannula 6.0 04/18/17 23:00 96 17 166/62 (96) 95 Nasal Cannula 6.0 04/18/17 22:30 95 20 144/59 (87) 95 Nasal Cannula 6.0 04/18/17 22:00 98 19 156/68 (97) 93 Nasal Cannula 6.0 04/18/17 21:30 101 25 158/61 (93) 91 Nasal Cannula 6.0 04/18/17 21:00 105 21 169/66 (100) 93 Nasal Cannula 6.0 04/18/17 20:30 101 28 168/72 (104) 96 Nasal Cannula 6.0 04/18/17 20:00 Nasal Cannula 6.0 04/18/17 20:00 37.6 98 24 158/66 (96) 96 Nasal Cannula 6.0 04/18/17 19:30 101 15 164/67 (99) 94 Nasal Cannula 6.0 04/18/17 19:00 100 13 169/64 (99) 91 Nasal Cannula 6.0 04/18/17 18:00 37.0 105 16 155/70 (98) 90 Nasal Cannula 6.0 04/18/17 16:00 Nasal Cannula 6.0 04/18/17 16:00 37.0 100 16 161/67 (98) 92 Oxymask 6.0 04/18/17 14:00 37.0 97 20 144/69 (94) 90 Nasal Cannula 6.0 04/18/17 12:00 37.0 96 16 155/73 (100) 94 Nasal Cannula 6.0 123/70 (87) 04/18/17 12:00 Nasal Cannula 6.0 Laboratory Results: Last 24 Hours Test 04/18/17 12:45 04/18/17 13:08 04/18/17 14:20 04/18/17 17:30 Urine Random Creatinine 88.0 mg/dl Urine Random Sodium 37 mEq/L Blood Gas Sample Site Art Line Bedside Blood Gas pH (LAB) 7.48 Bedside Blood Gas pCO2 (LAB) 24 mmHg Bedside Blood Gas pO2 (LAB) 53 mmHg Bedside Blood Gas HCO3 (LAB) 18 meq/L Bedside Blood Gas Total CO2 19 mEq/l Bedside Blood Gas Base Excess (LAB) -5.0 meq/L Bedside Blood Gas O2 Saturation 91.0 % Epi Test NA Oxygen Delivery Device Cannula Lipase 882 U/L Activated Partial Thromboplast Time 28.5 SECONDS Partial Thromboplastin Ratio 1.1 Test 04/18/17 17:38 04/18/17 21:06 04/19/17 00:46 04/19/17 04:36 Bedside Glucose 319 mg/dl 104 mg/dl Activated Partial Thromboplast Time 87.7 SECONDS 47.6 SECONDS Partial Thromboplastin Ratio 3.4 1.8 White Blood Count 10.11 K/uL Red Blood Count 2.45 M/uL Hemoglobin 7.7 g/dL Hematocrit 22.5 % Mean Corpuscular Volume 91.8 fL Mean Corpuscular Hemoglobin 31.4 pg Mean Corpuscular Hemoglobin Concent 34.2 g/dl Platelet Count 151 K/uL Mean Platelet Volume 10.9 fL Neutrophils (%) (Auto) 76.2 % Lymphocytes (%) (Auto) 14.6 % Monocytes (%) (Auto) 8.5 % Eosinophils (%) (Auto) 0.4 % Basophils (%) (Auto) 0.1 % Neutrophils # (Auto) 7.70 K/uL Lymphocytes # (Auto) 1.48 K/uL Monocytes # (Auto) 0.86 K/uL Eosinophils # (Auto) 0.04 K/uL Basophils # (Auto) 0.01 K/uL RDW Standard Deviation 41.0 fL RDW Coefficient of Variation 12.3 % Immature Granulocyte % (Auto) 0.2 % Immature Granulocyte # (Auto) 0.02 K/uL Red Blood Cell Morphology Unremarkable Sodium Level 142 mmol/L Potassium Level 3.9 mmol/L Chloride Level 112 mmol/L Carbon Dioxide Level 23 mmol/L Anion Gap 7.0 mmol/L Blood Urea Nitrogen 65 mg/dl Creatinine 3.30 mg/dl Est Creatinine Clear Calc Drug Dose 22.3 ml/min Estimated GFR () 21.8 Estimated GFR (Non- 18.8 BUN/Creatinine Ratio 19.7 Random Glucose 119 mg/dl Calcium Level 7.7 mg/dl Phosphorus Level 3.1 mg/dl Magnesium Level 2.3 mg/dl Total Bilirubin 0.9 mg/dl Direct Bilirubin 0.3 mg/dl Aspartate Amino Transf (AST/SGOT) 35 U/L Alanine Aminotransferase (ALT/SGPT) 78 U/L Alkaline Phosphatase 74 U/L Total Protein 6.2 gm/dl Albumin 2.5 gm/dl Resident Tracking Resident Involvement: Resident Care Provided Care Provided: Adult [facility]
[2017-04-19] MEDS: HEPARIN SOD 5000 UNIT/0.5 ML CARP SQ SCH ×2 (14:17→21:40)
--- NOTE | 2017-04-19 14:22 | DIAGNOSTIC IMAGING REPORT ---
CHEST ONE VIEW PORTABLE CLINICAL HISTORY: dyspnea dyspnea COMPARISON STUDY: 04/18/2017 FINDINGS: Moderate stable cardiomegaly. Placement of a permanent bipolar cardiac pacemaker. Leads in good position. Stable findings of congestive failure. No evidence pneumothorax. IMPRESSION: Bipolar cardiac pacemaker placed with leads in good position. No evidence pneumothorax. Stable components of congestive failure The above report was generated using voice recognition software. It may contain grammatical, syntax or spelling errors. Electronically signed by: Davion Lopez M.D. 04/19/2017 2:21 PM Dictated Date/Time: 04/19/2017 2:20 PM
--- NOTE | 2017-04-19 15:41 | Medical Consult ---
Consultation Date of Consultation: Apr 19, 2017. Attending Physician: Lissa Johnson MD Reason for Consultation: HIV treatment History of Present Illness 61-year-old transgender female who has long history of HIV infection, maintained on combination of Prezista and Genvoya, but with unknown CD4 count and viral load, was admitted to the hospital with episode of asystole. She is now status post permanent pacemaker insertion. HIV medication has not been restarted as awaiting supply from assisted. No report of new HIV related complaints. Past Medical/Surgical History Medical Problems: (1) Acute renal failure Status: Acute (2) Bradycardia Status: Acute (3) Cardiopulmonary arrest Status: Acute (4) GI bleed Status: Acute (5) Heart block Status: Acute (6) Renal failure Status: Acute Medical Problems: (1) Cardiac arrest (2) CKD (chronic kidney disease), stage III (3) CVA (cerebral vascular accident) (4) DM type 2 (diabetes mellitus, type 2) (5) G-6-PD deficiency (6) HIV (human immunodeficiency virus infection) (7) HTN (hypertension) (8) Mkck-ua-hsedvn transgender person Family History No pertinent family history stated Social History Smoking Status: Current Every Day Smoker Alcohol Use: none Drug Use: none Housing Status: other Occupation Status: unemployed Allergies Coded Allergies: Penicillins (Verified Allergy, Intermediate, UNKNOWN, 04/16/17) Current Inpatient Medications Current Inpatient Medications Medications (Trade) Dose Ordered Sig/Carlin Route Start Time Stop Time Status Last Admin Dose Admin Miscellaneous Information (Consult Glycemic Management Pharmacy) 1 ea UD PRN N/A 04/16/17 15:00 05/16/17 14:59 Nitroglycerin (Nitroglycerin 2% Oint) 2 inch Q6H EXT 04/16/17 19:30 05/16/17 19:29 04/19/17 07:24 2 INCH Heparin Sodium (Porcine) (Heparin 10 Unit/ ml 5 ml Flush) 5 ml PRN PRN FLUSH 04/17/17 00:30 05/17/17 00:29 Insulin Aspart (novoLOG ASPART) SLIDING SCALE If C... ACHS SC 04/17/17 06:45 05/17/17 06:44 04/19/17 12:04 3 UNITS Glucose (Glucose 40% Gel) UD PRN PO 04/17/17 05:00 05/17/17 04:59 Glucose (Glucose Chew Tab) 1 tabs UD PRN PO 04/17/17 05:00 05/17/17 04:59 Dextrose (Dextrose 50% 50ML Syringe) 50 ml UD PRN IV 04/17/17 05:00 05/17/17 04:59 Glucagon (Glucagon Inj) 1 mg UD PRN SQ 04/17/17 05:00 05/17/17 04:59 Hydralazine HCl (HydrALAZINE INJ) 20 mg Q4 PRN IV. 04/17/17 12:15 05/17/17 12:14 04/18/17 00:40 20 MG Amlodipine Besylate (Norvasc Tab) 10 mg QAM PO 04/18/17 09:00 05/18/17 08:59 04/19/17 07:24 10 MG Acetaminophen (Tylenol Tab) 650 mg Q6H PRN PO 04/17/17 20:00 05/17/17 19:59 Lactated Ringer's 1,000 ml @ 15 mls/hr Q24H ONCE IV 04/19/17 06:00 04/20/17 05:59 04/19/17 06:02 15 MLS/HR Insulin Glargine (Lantus Solostar Pen) SEE PROTOCOL TEXT BID SC 04/18/17 21:00 05/18/17 20:59 Oxycodone HCl (Roxicodone Immediate Rel Tab) 5 mg Q4RWA PRN PO 04/19/17 10:15 05/03/17 10:14 Heparin Sodium (Porcine) (Heparin Sq 5000 Unit/0.5ml) 5,000 unit Q8 SQ 04/19/17 14:00 05/19/17 13:59 04/19/17 14:17 5,000 UNIT Vancomycin HCl 500 mg/Sodium Chloride 260 ml @ 125 mls/hr TODAY@2100 IV 04/19/17 21:00 04/19/17 23:05 Levofloxacin 750 mg/Prmx 150 ml @ 100 mls/hr TODAY@1800 IV 04/20/17 18:00 04/20/17 19:29 Review of Systems All systems were reviewed and are negative except as per HPI Physical Exam Date Time Temp Pulse Resp B/P (MAP) Pulse Ox O2 Delivery O2 Flow Rate FiO2 04/19/17 14:45 93 18 160/84 (109) 95 04/19/17 14:30 93 20 174/72 (106) 94 04/19/17 14:15 94 20 173/75 (107) 93 04/19/17 14:01 94 23 179/72 (107) 94 04/19/17 14:00 94 20 94 04/19/17 13:46 95 23 150/80 (103) 93 04/19/17 13:30 90 16 171/71 (104) 97 04/19/17 13:15 93 18 167/71 (103) 96 04/19/17 13:00 95 20 163/74 (103) 95 04/19/17 12:45 98 20 178/72 (107) 92 04/19/17 12:30 97 23 173/73 (106) 92 04/19/17 12:15 94 22 161/82 (108) 92 04/19/17 12:01 92 20 168/66 (100) 94 04/19/17 12:00 99 22 94 04/19/17 11:31 36.8 04/19/17 11:30 Nasal Cannula 5.0 04/19/17 10:45 95 20 175/71 (105) 95 Nasal Cannula 5.0 04/19/17 10:30 171/76 (107) 04/19/17 10:20 89 18 183/84 (117) 92 Room Air 04/19/17 10:15 87 18 185/86 (119) 93 Room Air 04/19/17 10:10 93 18 184/87 (119) 92 Room Air 04/19/17 10:00 87 18 165/80 (108) 98 Mask 6 04/19/17 08:30 90 19 162/67 (98) 95 Nasal Cannula 5.0 04/19/17 08:00 93 20 159/67 (97) 94 Nasal Cannula 5.0 04/19/17 07:30 36.9 96 22 147/66 (93) 88 Room Air 04/19/17 07:30 Nasal Cannula 5.0 04/19/17 07:00 95 21 151/72 (98) 91 Room Air 04/19/17 06:30 91 16 151/66 (94) 95 Nasal Cannula 6.0 04/19/17 06:00 91 19 152/66 (94) 96 Nasal Cannula 6.0 04/19/17 05:30 91 17 146/68 (94) 96 Nasal Cannula 6.0 04/19/17 05:00 92 20 160/69 (99) 98 Nasal Cannula 6.0 04/19/17 04:30 92 19 157/64 (95) 95 Nasal Cannula 6.0 04/19/17 04:00 36.8 96 22 156/69 (98) 95 Nasal Cannula 6.0 04/19/17 04:00 Nasal Cannula 6.0 04/19/17 03:30 90 17 160/73 (102) 97 Nasal Cannula 6.0 04/19/17 03:00 93 19 155/67 (96) 98 Nasal Cannula 6.0 04/19/17 02:30 98 23 154/67 (96) 91 Nasal Cannula 6.0 04/19/17 02:00 96 18 155/65 (95) 91 Nasal Cannula 6.0 04/19/17 01:30 97 19 150/71 (97) 92 Nasal Cannula 6.0 04/19/17 01:00 100 19 155/67 (96) 90 Nasal Cannula 6.0 04/19/17 00:30 98 20 154/65 (94) 93 Nasal Cannula 6.0 04/19/17 00:01 Nasal Cannula 6.0 04/19/17 00:00 37.4 95 15 151/64 (93) 95 Nasal Cannula 6.0 04/18/17 23:30 96 18 144/61 (88) 94 Nasal Cannula 6.0 04/18/17 23:00 96 17 166/62 (96) 95 Nasal Cannula 6.0 04/18/17 22:30 95 20 144/59 (87) 95 Nasal Cannula 6.0 04/18/17 22:00 98 19 156/68 (97) 93 Nasal Cannula 6.0 04/18/17 21:30 101 25 158/61 (93) 91 Nasal Cannula 6.0 04/18/17 21:00 105 21 169/66 (100) 93 Nasal Cannula 6.0 04/18/17 20:30 101 28 168/72 (104) 96 Nasal Cannula 6.0 04/18/17 20:00 Nasal Cannula 6.0 04/18/17 20:00 37.6 98 24 158/66 (96) 96 Nasal Cannula 6.0 9/10/17 19:30 101 15 164/67 (99) 94 Nasal Cannula 6.0 04/18/17 19:00 100 13 169/64 (99) 91 Nasal Cannula 6.0 04/18/17 18:00 37.0 105 16 155/70 (98) 90 Nasal Cannula 6.0 04/18/17 16:00 Nasal Cannula 6.0 04/18/17 16:00 37.0 100 16 161/67 (98) 92 Oxymask 6.0 General Appearance: WD/WN, no apparent distress Head: normocephalic, atraumatic Eyes: normal inspection, EOMI, sclerae normal ENT: normal ENT inspection, hearing grossly normal, pharynx normal Neck: supple, no adenopathy, thyroid normal, trachea midline Respiratory/Chest: chest non-tender, lungs clear, normal breath sounds, no respiratory distress Cardiovascular: regular rate, rhythm, no gallop, no murmur Abdomen/GI: normal bowel sounds, non tender, soft, no organomegaly Back: normal inspection, no CVA tenderness Extremities/Musculoskelatal: no calf tenderness, non-tender Neurologic/Psych: alert, oriented x 3 Skin: normal color, no rash Lymphatic: no adenopathy Laboratory Results RUN DATE: 04/18/17 [facility] LAB PAGE 1 RUN TIME: 712 Specimen Inquiry PATIENT: CHAUNCEY CHAU [id number] [facility] # : [id number] AGE/SX: 61/M ROOM: E106 REG : 04/16/[address]: Lamine Drew D.O. : 1955 BED: 1 DIS : STATUS: ADM IN TLOC: SPEC #: [id number] ANTONIO: 04/16/17 STATUS: RES REQ #: [id number] RECD: 04/16/17-[address]: Bruce Martin MD SOURCE: BLOOD ENTR: 04/16/17-[address]: Lil[facility] Tobin [facility] Rajendra Ort[facility] M.[facility]. [facility] ORDERED: BLOOD CULTURE COMMENTS: PT IS @HAVING LINES PUT IN/JABCJE 1230 Procedure Result Verified Site BLD CULT Preliminary 04/18/17 NO GROWTH TO DATE. Last 24 Hours Test 04/18/17 17:30 04/18/17 17:38 04/18/17 21:06 04/19/17 00:46 Activated Partial Thromboplast Time 28.5 SECONDS 87.7 SECONDS Partial Thromboplastin Ratio 1.1 3.4 Bedside Glucose 319 mg/dl 104 mg/dl Test 04/19/17 04:36 04/19/17 11:26 White Blood Count 10.11 K/uL Red Blood Count 2.45 M/uL Hemoglobin 7.7 g/dL Hematocrit 22.5 % Mean Corpuscular Volume 91.8 fL Mean Corpuscular Hemoglobin 31.4 pg Mean Corpuscular Hemoglobin Concent 34.2 g/dl Platelet Count 151 K/uL Mean Platelet Volume 10.9 fL Neutrophils (%) (Auto) 76.2 % Lymphocytes (%) (Auto) 14.6 % Monocytes (%) (Auto) 8.5 % Eosinophils (%) (Auto) 0.4 % Basophils (%) (Auto) 0.1 % Neutrophils # (Auto) 7.70 K/uL Lymphocytes # (Auto) 1.48 K/uL Monocytes # (Auto) 0.86 K/uL Eosinophils # (Auto) 0.04 K/uL Basophils # (Auto) 0.01 K/uL RDW Standard Deviation 41.0 fL RDW Coefficient of Variation 12.3 % Immature Granulocyte % (Auto) 0.2 % Immature Granulocyte # (Auto) 0.02 K/uL Red Blood Cell Morphology Unremarkable Activated Partial Thromboplast Time 47.6 SECONDS Partial Thromboplastin Ratio 1.8 Sodium Level 142 mmol/L Potassium Level 3.9 mmol/L Chloride Level 112 mmol/L Carbon Dioxide Level 23 mmol/L Anion Gap 7.0 mmol/L Blood Urea Nitrogen 65 mg/dl Creatinine 3.30 mg/dl Est Creatinine Clear Calc Drug Dose 22.3 ml/min Estimated GFR () 21.8 Estimated GFR (Non- 18.8 BUN/Creatinine Ratio 19.7 Random Glucose 119 mg/dl Calcium Level 7.7 mg/dl Phosphorus Level 3.1 mg/dl Magnesium Level 2.3 mg/dl Total Bilirubin 0.9 mg/dl Direct Bilirubin 0.3 mg/dl Aspartate Amino Transf (AST/SGOT) 35 U/L Alanine Aminotransferase (ALT/SGPT) 78 U/L Alkaline Phosphatase 74 U/L Total Protein 6.2 gm/dl Albumin 2.5 gm/dl Bedside Glucose 118 mg/dl CHEST ONE VIEW PORTABLE CLINICAL HISTORY: dyspnea dyspnea COMPARISON STUDY: 04/18/2017 FINDINGS: Moderate stable cardiomegaly. Placement of a permanent bipolar cardiac pacemaker. Leads in good position. Stable findings of congestive failure. No evidence pneumothorax. IMPRESSION: Bipolar cardiac pacemaker placed with leads in good position. No evidence pneumothorax. Stable components of congestive failure The above report was generated using voice recognition software. It may contain grammatical, syntax or spelling errors. Electronically signed by: Davion Lopez M.D. 04/19/2017 2:21 PM Assessment & Plan 61-year-old transgender female with longstanding HIV infection admitted after episode of asystole now status post pacemaker insertion. Patient should be continued on her current anti-retroviral regimen, and I have ordered repeat viral load and CD4 count to ensure efficacy. Will follow.
--- NOTE | 2017-04-19 15:50 | Medical Student: [facility] ---
Med Student Progress Note Date of Service Apr 19, 2017. Subjective Pt evaluation today including: conversation w/ patient, chart review, lab review Voiding: velazquez catheter in place 61 year old male to female transgender woman who presented to the ED in asystole , requiring chest compressions for resuscitation. Today she is scheduled for a placement of a permanent pacemaker. She had no acute events overnight. Patient states that she was able to rest comfortably and has not had any shortness of breath, heart palpitations, or chest pain. She does admit to some chest soreness from the compressions and some swelling in her arms. She denies any nausea, vomiting, abdominal pain, diarrhea, constipation, headaches or trouble breathing. She has a Velazquez catheter and has had adequate amount of urine output. Review of Systems Constitutional: No fever, No chills, No sweats Eyes: No worsening of vision ENT: No hearing loss Respiratory: No cough, No shortness of breath, No dyspnea at rest Cardiac: No chest pain, No edema, No palpitations Abdomen: No pain, No nausea, No vomiting, No diarrhea, No constipation Objective Vital Signs Date Time Temp Pulse Resp B/P (MAP) Pulse Ox O2 Delivery O2 Flow Rate FiO2 04/19/17 14:45 93 18 160/84 (109) 95 04/19/17 14:30 93 20 174/72 (106) 94 04/19/17 14:15 94 20 173/75 (107) 93 04/19/17 14:01 94 23 179/72 (107) 94 04/19/17 14:00 94 20 94 04/19/17 13:46 95 23 150/80 (103) 93 04/19/17 13:30 90 16 171/71 (104) 97 04/19/17 13:15 93 18 167/71 (103) 96 04/19/17 13:00 95 20 163/74 (103) 95 04/19/17 12:45 98 20 178/72 (107) 92 04/19/17 12:30 97 23 173/73 (106) 92 04/19/17 12:15 94 22 161/82 (108) 92 04/19/17 12:01 92 20 168/66 (100) 94 04/19/17 12:00 99 22 94 04/19/17 11:31 36.8 04/19/17 11:30 Nasal Cannula 5.0 04/19/17 10:45 95 20 175/71 (105) 95 Nasal Cannula 5.0 04/19/17 10:30 171/76 (107) 04/19/17 10:20 89 18 183/84 (117) 92 Room Air 04/19/17 10:15 87 18 185/86 (119) 93 Room Air 04/19/17 10:10 93 18 184/87 (119) 92 Room Air 04/19/17 10:00 87 18 165/80 (108) 98 Mask 6 04/19/17 08:30 90 19 162/67 (98) 95 Nasal Cannula 5.0 04/19/17 08:00 93 20 159/67 (97) 94 Nasal Cannula 5.0 04/19/17 07:30 36.9 96 22 147/66 (93) 88 Room Air 04/19/17 07:30 Nasal Cannula 5.0 04/19/17 07:00 95 21 151/72 (98) 91 Room Air 04/19/17 06:30 91 16 151/66 (94) 95 Nasal Cannula 6.0 04/19/17 06:00 91 19 152/66 (94) 96 Nasal Cannula 6.0 04/19/17 05:30 91 17 146/68 (94) 96 Nasal Cannula 6.0 04/19/17 05:00 92 20 160/69 (99) 98 Nasal Cannula 6.0 04/19/17 04:30 92 19 157/64 (95) 95 Nasal Cannula 6.0 04/19/17 04:00 36.8 96 22 156/69 (98) 95 Nasal Cannula 6.0 04/19/17 04:00 Nasal Cannula 6.0 04/19/17 03:30 90 17 160/73 (102) 97 Nasal Cannula 6.0 04/19/17 03:00 93 19 155/67 (96) 98 Nasal Cannula 6.0 04/19/17 02:30 98 23 154/67 (96) 91 Nasal Cannula 6.0 04/19/17 02:00 96 18 155/65 (95) 91 Nasal Cannula 6.0 04/19/17 01:30 97 19 150/71 (97) 92 Nasal Cannula 6.0 04/19/17 01:00 100 19 155/67 (96) 90 Nasal Cannula 6.0 04/19/17 00:30 98 20 154/65 (94) 93 Nasal Cannula 6.0 04/19/17 00:01 Nasal Cannula 6.0 04/19/17 00:00 37.4 95 15 151/64 (93) 95 Nasal Cannula 6.0 04/18/17 23:30 96 18 144/61 (88) 94 Nasal Cannula 6.0 04/18/17 23:00 96 17 166/62 (96) 95 Nasal Cannula 6.0 04/18/17 22:30 95 20 144/59 (87) 95 Nasal Cannula 6.0 04/18/17 22:00 98 19 156/68 (97) 93 Nasal Cannula 6.0 04/18/17 21:30 101 25 158/61 (93) 91 Nasal Cannula 6.0 04/18/17 21:00 105 21 169/66 (100) 93 Nasal Cannula 6.0 04/18/17 20:30 101 28 168/72 (104) 96 Nasal Cannula 6.0 04/18/17 20:00 Nasal Cannula 6.0 04/18/17 20:00 37.6 98 24 158/66 (96) 96 Nasal Cannula 6.0 04/18/17 19:30 101 15 164/67 (99) 94 Nasal Cannula 6.0 04/18/17 19:00 100 13 169/64 (99) 91 Nasal Cannula 6.0 04/18/17 18:00 37.0 105 16 155/70 (98) 90 Nasal Cannula 6.0 04/18/17 16:00 Nasal Cannula 6.0 04/18/17 16:00 37.0 100 16 161/67 (98) 92 Oxymask 6.0 Physical Exam General Appearance: WD/WN, no apparent distress Eyes: bilateral eyes PERRL Respiratory/Chest: lungs clear Cardiovascular: regular rate, rhythm, no edema, no gallop, no JVD Abdomen: normal bowel sounds, non tender, soft Neurologic/Psychiatric: alert, oriented x 3 Lymphatic: no adenopathy Laboratory Results Last 24 Hours Test 04/18/17 17:30 04/18/17 17:38 04/18/17 21:06 04/19/17 00:46 Activated Partial Thromboplast Time 28.5 SECONDS 87.7 SECONDS Partial Thromboplastin Ratio 1.1 3.4 Bedside Glucose 319 mg/dl 104 mg/dl Test 04/19/17 04:36 04/19/17 11:26 White Blood Count 10.11 K/uL Red Blood Count 2.45 M/uL Hemoglobin 7.7 g/dL Hematocrit 22.5 % Mean Corpuscular Volume 91.8 fL Mean Corpuscular Hemoglobin 31.4 pg Mean Corpuscular Hemoglobin Concent 34.2 g/dl Platelet Count 151 K/uL Mean Platelet Volume 10.9 fL Neutrophils (%) (Auto) 76.2 % Lymphocytes (%) (Auto) 14.6 % Monocytes (%) (Auto) 8.5 % Eosinophils (%) (Auto) 0.4 % Basophils (%) (Auto) 0.1 % Neutrophils # (Auto) 7.70 K/uL Lymphocytes # (Auto) 1.48 K/uL Monocytes # (Auto) 0.86 K/uL Eosinophils # (Auto) 0.04 K/uL Basophils # (Auto) 0.01 K/uL RDW Standard Deviation 41.0 fL RDW Coefficient of Variation 12.3 % Immature Granulocyte % (Auto) 0.2 % Immature Granulocyte # (Auto) 0.02 K/uL Red Blood Cell Morphology Unremarkable Activated Partial Thromboplast Time 47.6 SECONDS Partial Thromboplastin Ratio 1.8 Sodium Level 142 mmol/L Potassium Level 3.9 mmol/L Chloride Level 112 mmol/L Carbon Dioxide Level 23 mmol/L Anion Gap 7.0 mmol/L Blood Urea Nitrogen 65 mg/dl Creatinine 3.30 mg/dl Est Creatinine Clear Calc Drug Dose 22.3 ml/min Estimated GFR () 21.8 Estimated GFR (Non- 18.8 BUN/Creatinine Ratio 19.7 Random Glucose 119 mg/dl Calcium Level 7.7 mg/dl Phosphorus Level 3.1 mg/dl Magnesium Level 2.3 mg/dl Total Bilirubin 0.9 mg/dl Direct Bilirubin 0.3 mg/dl Aspartate Amino Transf (AST/SGOT) 35 U/L Alanine Aminotransferase (ALT/SGPT) 78 U/L Alkaline Phosphatase 74 U/L Total Protein 6.2 gm/dl Albumin 2.5 gm/dl Bedside Glucose 118 mg/dl Medications Medications (Trade) Dose Ordered Sig/Carlin Route Start Time Stop Time Status Last Admin Dose Admin Levofloxacin 750 mg/Prmx 100 ml @ 100 mls/hr Q2D@1800 IV 04/18/17 18:00 9/11/17 12:19 DC 04/18/17 18:05 100 MLS/HR Lactated Ringer's 1,000 ml @ 15 mls/hr Q24H ONCE IV 04/19/17 06:00 04/20/17 05:59 04/19/17 06:02 15 MLS/HR Miscellaneous (Stop Order) 1 ea TODAY@0400 ONCE N/A 04/19/17 04:00 04/19/17 04:01 DC 04/19/17 04:00 1 EA Vancomycin HCl 1000 mg/Sodium Chloride 270 ml @ 125 mls/hr TODAY@0700 ONCE IV 04/19/17 07:00 04/19/17 09:09 DC 04/19/17 07:57 125 MLS/HR Heparin Sodium (Porcine) 6000 unit/Syringe 6 ml @ 10 mls/min NOW ONCE IV 04/18/17 19:00 04/18/17 19:01 DC 04/18/17 18:41 10 MLS/MIN Fentanyl Citrate (Fentanyl Inj) 100 mcg STK-MED ONCE .ROUTE 04/19/17 09:09 04/19/17 09:10 DC 04/19/17 09:09 75 MCG Midazolam HCl (Versed Inj) 5 mg STK-MED ONCE .ROUTE 04/19/17 09:09 04/19/17 09:10 DC 04/19/17 09:09 3 MG Heparin Sodium (Porcine) (Heparin Sq 5000 Unit/0.5ml) 5,000 unit Q8 SQ 04/19/17 14:00 05/19/17 13:59 04/19/17 14:17 5,000 UNIT Assessment and Plan Problems Acute renal failure Cardiopulmonary arrest CKD (chronic kidney disease), stage III DM type 2 (diabetes mellitus, type 2) G-6-PD deficiency HIV (human immunodeficiency virus infection) HTN (hypertension) Uegz-at-odjrdi transgender person Assessment and Plan: 61 year old male to female transgender woman who presented to the ED in asystole and has since also had documented atrial fibrillation. She states that she felt some shortness of breath and bilateral leg swelling for 2 days prior to arrival. Past medical history includes HIV, HTN, Stroke, Diabetes Type II, G6PD, and Stage III CKD. She also had a similar cardiac arrest episode in the summer of 2015 and has a temporary pacemaker. Upon admission, she developed acute respiratory failure secondary to the cardiac arrest and required immediate intubation. She was extubated 2 days ago and has slowly improved with her breathing and is currently breathing on room air. In addition to her CKD, an acute renal injury, most likely due to hypoperfusion was also documented. CT Scan showed: cardiomegaly, right pleural effusion, 2 nodules (one in the right upper lobe and the other in the right middle lobe). Abdominal x-ray: asymptomatic cholelithiasis EKG: most recent EKG shows NSR, RBBB, and Right axis deviation Echo: small pericardial effusion was documented. No structural wall or valvular defects. Atrial Fibrillation and Asystole Upon admission, the cause of her asystole was unknown but thought to likely be due to sinus node dysfunction. However, after her documented episode of atrial fibrillation, it is hypothesized that she might have Sick Sinus Syndrome. As per cardiology consultation, this does not change the course of treatment and it is still recommended to move forward with a permanent pacemaker implantation: -place permanent pacemaker -Diltazem for rate control -Heparin was used for anticoagulation but stopped before procedure.Consult cardiology to see if it should be restarted. Due to the pericardial effusion seen on echo, heparin must be monitored carefully. Anemia Patient does not present with signs or symptoms of hemolytic anemia that could be attributed to G6PD. Furthermore, she has not had any triggering medications that would cause hemolysis. Further evaluation of her anemia should be done: -Order Iron studies: Serum Fe, TIBC, Serum Ferritin. -Order B12 and Folate levels Acute Renal Injury w/ CKD Stage III Patient has chronic kidney disease with a baseline creatinine around 1.8. Her current increase in BUN and Cr levels show evidence of LEEROY, most likely prerenal azotemia from hypoperfusion secondary to her cardiac arrest. -Continue to encourage fluid intake and monitor Cr, BUN, and Na. HIV ID was consulted and recommended continuation of HAART Therapy. HIV viral studies and CD4 counts were ordered. Diabetes Type II Most recent HbA1c was 6.0 showing good control of blood sugars. -Continue Basal and Bolus Insulin Hypertension -Continue Amlodipine -Consult Cardiology about restarting Metoprolol Cholesterol -Restart atorvastatin Pulmonary Nodules found on CT Recommend follow up and repeat CT in 3-6 months. Encourage patient to consider smoking cessation DVT Prophylaxis -Continue SQ Heparin injections Continued [facility] stay due to: multiple IV medications needed, other
--- NOTE | 2017-04-19 16:26 | Procedure Note ---
Procedure Note Date of Service Apr 19, 2017. Procedure Note Procedure performed: Implantation of dual-chamber permanent pacemaker Staff community ambassador:Pieter Paz MD Indication: The patient is a 61-year-old woman with a history of sinus arrest. This happened on multiple occasions and resulted in several episodes of resuscitation. She also required recent placement of temporary transvenous pacemaker. Based on the severity recurrent nature of her episodes she was felt to be a good candidate for permanent pacing due to symptomatic non reversible sinus node dysfunction. Dual-chamber device was selected as she is currently in sinus rhythm which to maintain AV synchrony. Procedure in detail: The patient was informed of the risks benefits and alternatives to the intended procedure and she wished to proceed. She was taken to the electrophysiology suite in a fasting state. A preoperative antibiotic had been administered. The patient was monitored electrocardiographically throughout today's procedure and conscious sedation was administered per protocol. The left upper pectoral area is prepped and draped in usual sterile fashion. This area was anesthetized using subcutaneous menstruation of a xylocaine solution. An incision was made at this site and carried down to the prepectoralis fascia using sharp dissection. Electrocautery was also employed for dissection as well as for hemostasis. A device pocket was fashioned tissues above the pectoralis muscle. Subsequent to this maneuver the left axillary vein was accessed using modified Seldinger technique. Sheaths were placed over guidewires at this site use salt a passage of the pacing leads to the respective chambers under fluoroscopic guidance. This included right atrial and right ventricular leads. Adequate sensing and threshold parameters were obtained prior to Active fixation of the leads to the endocardial surface. The proximal portion leads were then sutured the prepectoral fascia using nonabsorbable suture. The device pocket was irrigated with antibiotic solution. The leads were then attached to the device. The device and leads were then placed in the pocket and pocket was closed in 3 layers of absorbable suture. Steri-Strips and sterile dressing were applied. The device was tested not have a sleep prior to occlusion the procedure. The patient tolerated procedure well there no immediate complications. Equipment used: New pulse generator: Manager Trainee: [employer] model number A2DR01, serial number: [id number] Right atrial lead: Manager Trainee [employer] model 4076, serial number [id number] Right ventricular lead: Manager Trainee [employer], model 4076, serial number [id number] Measured data: Right atrial lead: P-waves measured 1.5 millivolts, pacing threshold was 0.75 volts at 0.4 milliseconds, pacing impedance was 342 Ohms Right ventricular lead: R-waves measure 6.3 millivolts, pacing threshold was 0.5 volts at 0.4 milliseconds with a pacing impedance of 513 Ohms Impression, Successful implantation of dual-chamber permanent pacemaker
[2017-04-19] MEDS ORDERED: NURSING VERBAL MED ORDER ONE (16:30)
[2017-04-19] MEDS ORDERED: GLUCAGON FOR INJ 1 MG VIAL SQ PRN (16:45)
[2017-04-19] MEDS ORDERED: GLUCOSE 40% GEL 15 GM TUBE PO PRN (16:45)
[2017-04-19] MEDS ORDERED: GLUCOSE 10 TABS/TUBE PO PRN (16:45)
[2017-04-19] MEDS ORDERED: DEXTROSE 50% 50 ML SYR IV PRN (16:45)
[2017-04-19] MEDS: HydrALAZINE HCL 20 MG/ML VIAL IV. PRN (17:37)
[2017-04-19] MEDS: OXYCODONE HCL IR 5 MG TAB (IMMEDIATE RELEASE) PO PRN (19:40)
[2017-04-19] MEDS ORDERED: VANCOMYCIN INJ 500 MG in SODIUM CHLORIDE 0.9% 250ML 250 ML IV SCH (21:00)
[2017-04-19] MEDS ORDERED: DARUNAVIR ETHANOLATE 800 MG TAB PO SCH (21:00)
[2017-04-19] MEDS ORDERED: VANCOMYCIN INJ 1,000 MG in SODIUM CHLORIDE 0.9% 250ML 250 ML IV SCH (21:00)
--- NOTE | 2017-04-19 21:23 | INFECT. DISEASE CONSULTATION ---
DATE OF CONSULTATION: 04/19/2017 REQUESTING PHYSICIAN: Dr. Saldaña. HISTORY OF PRESENT ILLNESS: This is a 61-year-old transgender female, who was admitted from [facility] after asystole cardiac arrest. The patient was intubated since the time of admission, and was just extubated yesterday. She was treated with medication and received a pacemaker earlier this morning. She does carry a diagnosis of HIV, for which she has most recently been on Genvoya and Prezista. She states she has been on these medications for some months, but has been on medication for HIV dating back to 2007. She denies any history with kidney damage or injury; however, she has had an elevated creatinine in the mid 3 since admission to the hospital. This is being attributed to ATN from her cardiac arrest. She initially was receiving a hypothermic protocol, but this was discontinued. On the , she did have a temperature of 38, which was isolated. On the , she had a T-max of 37.6. She has otherwise been afebrile. Currently, she is on empiric vancomycin and Zosyn. Blood cultures were obtained in the Emergency Room and are negative today. Her white blood cell count is 10.1. REVIEW OF SYSTEMS: On my examination today, the patient is eating lunch. She denies any nausea, vomiting, diarrhea or abdominal pain. She has no pain at the pacemaker site which was placed earlier today. She denies any fevers or chills. She denies any difficulty with her previous HIV medications. She is not all clear of her most recent laboratory studies. All remaining review of systems are reviewed and are unremarkable. PAST MEDICAL HISTORY: Significant for reported chronic kidney disease; however, she denies any difficulty with her kidneys prior to this admission. I do not know a baseline creatinine. History of CVA, type 2 diabetes, G6PD deficiency, HIV for which she has been medicated reportedly since 2007, and hypertension. PAST SURGICAL HISTORY: Significant for pacemaker placed earlier today. FAMILY HISTORY: Noncontributory. SOCIAL HISTORY: Significant for daily tobacco use. There is no alcohol or drug use. She is an inmate at [facility]. ALLERGIES: TO PENICILLIN. CURRENT MEDICATIONS: Include, subQ heparin, oxycodone, insulin, levofloxacin, Norvasc, Tylenol, hydralazine, vancomycin. PHYSICAL EXAMINATION: VITAL SIGNS: T-max of 37.6 overnight, otherwise afebrile, pulse 89, respiratory rate 18, blood pressure 183/84, oxygen saturation is 92% on room air. GENERAL: She is awake, alert and oriented x3. She is in no acute distress. HEENT: Mucous membranes are moist. Extraocular muscles are intact. HEART: Regular, pacemaker dressing is clean, dry and intact. LUNGS: Clear bilaterally. ABDOMEN: Soft and nondistended. EXTREMITIES: There is no lower extremity edema. SKIN: Without rash. LABORATORY STUDIES: CBC today reveals a white blood cell count of 10.1, hemoglobin 7.7, platelets are 151. Chemistry panel reveals a sodium of 142, potassium 3.9, chloride 112, bicarbonate 23, BUN 65, creatinine 3.3, glucose 119. LFTs are within normal limits, hep C screening is negative. Blood cultures from the are no growth to date x2 sets. IMAGING DATA: Abdominal ultrasound done yesterday shows no gallbladder wall thickening. Most recent chest x-ray was done on the , which shows improved congestion, and no infiltration. CT of the chest was done on , no PE was noted. ASSESSMENT AND PLAN: 1. HIV disease, on medication. I am unclear of the patient's baseline creatinine although she denies any history of kidney disease, she does carry a diagnosis of chronic kidney disease. I suspect that there is some acute worsening with her cardiac arrest. The last chemistry panel are done here was in September 2016. At that time, there was a creatinine of 1.9. I would continue to hold HIV medications until acute tubular necrosis has resolved and at that time, she can be replaced back on her existing regimen and follow up with her HIV provider upon discharge from the hospital. Thank you for this consultation.
[2017-04-19] MEDS: CARVEDILOL 6.25 MG TAB PO SCH (21:38)
--- NOTE | 2017-04-19 22:19 | Hospitalist Progress Note ---
Hospitalist Progress Note Date of Service Apr 19, 2017. Subjective Pt evaluation today including: conversation w/ patient No concerns, feeling well today. Is brock po. All Other Systems: Reviewed and Negative Objective Vital Signs Date Time Temp Pulse Resp B/P (MAP) Pulse Ox O2 Delivery O2 Flow Rate FiO2 04/19/17 20:10 37.4 105 20 176/69 (104) 91 Nasal Cannula 4.0 04/19/17 18:40 106 171/68 (102) 04/19/17 17:16 105 185/79 (114) 04/19/17 17:06 37.1 100 20 182/78 (112) 92 Nasal Cannula 2.0 04/19/17 16:00 95 Nasal Cannula 5.0 04/19/17 16:00 36.8 92 18 173/75 (107) 95 Nasal Cannula 5.0 04/19/17 14:45 93 18 160/84 (109) 95 04/19/17 14:30 93 20 174/72 (106) 94 04/19/17 14:15 94 20 173/75 (107) 93 04/19/17 14:01 94 23 179/72 (107) 94 04/19/17 14:00 94 20 94 04/19/17 13:46 95 23 150/80 (103) 93 04/19/17 13:30 90 16 171/71 (104) 97 04/19/17 13:15 93 18 167/71 (103) 96 04/19/17 13:00 95 20 163/74 (103) 95 04/19/17 12:45 98 20 178/72 (107) 92 04/19/17 12:30 97 23 173/73 (106) 92 04/19/17 12:15 94 22 161/82 (108) 92 04/19/17 12:01 92 20 168/66 (100) 94 04/19/17 12:00 99 22 94 04/19/17 11:31 36.8 04/19/17 11:30 Nasal Cannula 5.0 04/19/17 10:45 95 20 175/71 (105) 95 Nasal Cannula 5.0 04/19/17 10:30 171/76 (107) 04/19/17 10:20 89 18 183/84 (117) 92 Room Air 04/19/17 10:15 87 18 185/86 (119) 93 Room Air 04/19/17 10:10 93 18 184/87 (119) 92 Room Air 04/19/17 10:00 87 18 165/80 (108) 98 Mask 6 04/19/17 08:30 90 19 162/67 (98) 95 Nasal Cannula 5.0 04/19/17 08:00 93 20 159/67 (97) 94 Nasal Cannula 5.0 04/19/17 07:30 36.9 96 22 147/66 (93) 88 Room Air 04/19/17 07:30 Nasal Cannula 5.0 04/19/17 07:00 95 21 151/72 (98) 91 Room Air 04/19/17 06:30 91 16 151/66 (94) 95 Nasal Cannula 6.0 04/19/17 06:00 91 19 152/66 (94) 96 Nasal Cannula 6.0 04/19/17 05:30 91 17 146/68 (94) 96 Nasal Cannula 6.0 04/19/17 05:00 92 20 160/69 (99) 98 Nasal Cannula 6.0 04/19/17 04:30 92 19 157/64 (95) 95 Nasal Cannula 6.0 04/19/17 04:00 36.8 96 22 156/69 (98) 95 Nasal Cannula 6.0 04/19/17 04:00 Nasal Cannula 6.0 04/19/17 03:30 90 17 160/73 (102) 97 Nasal Cannula 6.0 04/19/17 03:00 93 19 155/67 (96) 98 Nasal Cannula 6.0 04/19/17 02:30 98 23 154/67 (96) 91 Nasal Cannula 6.0 04/19/17 02:00 96 18 155/65 (95) 91 Nasal Cannula 6.0 04/19/17 01:30 97 19 150/71 (97) 92 Nasal Cannula 6.0 04/19/17 01:00 100 19 155/67 (96) 90 Nasal Cannula 6.0 04/19/17 00:30 98 20 154/65 (94) 93 Nasal Cannula 6.0 04/19/17 00:01 Nasal Cannula 6.0 04/19/17 00:00 37.4 95 15 151/64 (93) 95 Nasal Cannula 6.0 04/18/17 23:30 96 18 144/61 (88) 94 Nasal Cannula 6.0 04/18/17 23:00 96 17 166/62 (96) 95 Nasal Cannula 6.0 04/18/17 22:30 95 20 144/59 (87) 95 Nasal Cannula 6.0 Physical Exam General Appearance: WD/WN, no apparent distress Eyes: normal inspection, sclerae normal ENT: hearing grossly normal Neck: trachea midline Respiratory/Chest: lungs clear (except mild crackles at bases), normal breath sounds, no respiratory distress, no accessory muscle use Cardiovascular: regular rate, rhythm, no edema, no gallop, no murmur Abdomen: normal bowel sounds, soft Extremities: non-tender, normal inspection, no pedal edema, no calf tenderness Neurologic/Psychiatric: alert, normal mood/affect, oriented x 3 Skin: normal color, warm/dry, no rash Laboratory Results Last 24 Hours Test 04/19/17 00:46 04/19/17 04:36 04/19/17 11:26 04/19/17 15:41 Activated Partial Thromboplast Time 87.7 SECONDS 47.6 SECONDS Partial Thromboplastin Ratio 3.4 1.8 White Blood Count 10.11 K/uL Red Blood Count 2.45 M/uL Hemoglobin 7.7 g/dL Hematocrit 22.5 % Mean Corpuscular Volume 91.8 fL Mean Corpuscular Hemoglobin 31.4 pg Mean Corpuscular Hemoglobin Concent 34.2 g/dl Platelet Count 151 K/uL Mean Platelet Volume 10.9 fL Neutrophils (%) (Auto) 76.2 % Lymphocytes (%) (Auto) 14.6 % Monocytes (%) (Auto) 8.5 % Eosinophils (%) (Auto) 0.4 % Basophils (%) (Auto) 0.1 % Neutrophils # (Auto) 7.70 K/uL Lymphocytes # (Auto) 1.48 K/uL Monocytes # (Auto) 0.86 K/uL Eosinophils # (Auto) 0.04 K/uL Basophils # (Auto) 0.01 K/uL RDW Standard Deviation 41.0 fL RDW Coefficient of Variation 12.3 % Immature Granulocyte % (Auto) 0.2 % Immature Granulocyte # (Auto) 0.02 K/uL Red Blood Cell Morphology Unremarkable Sodium Level 142 mmol/L Potassium Level 3.9 mmol/L Chloride Level 112 mmol/L Carbon Dioxide Level 23 mmol/L Anion Gap 7.0 mmol/L Blood Urea Nitrogen 65 mg/dl Creatinine 3.30 mg/dl Est Creatinine Clear Calc Drug Dose 22.3 ml/min Estimated GFR () 21.8 Estimated GFR (Non- 18.8 BUN/Creatinine Ratio 19.7 Random Glucose 119 mg/dl Calcium Level 7.7 mg/dl Phosphorus Level 3.1 mg/dl Magnesium Level 2.3 mg/dl Total Bilirubin 0.9 mg/dl Direct Bilirubin 0.3 mg/dl Aspartate Amino Transf (AST/SGOT) 35 U/L Alanine Aminotransferase (ALT/SGPT) 78 U/L Alkaline Phosphatase 74 U/L Total Protein 6.2 gm/dl Albumin 2.5 gm/dl Bedside Glucose 118 mg/dl Test 04/19/17 15:56 04/19/17 20:25 Bedside Glucose 229 mg/dl 157 mg/dl Assessment and Plan 61 y/o transgender female with recurrent asystole, known to have HIV, HTN, who was admitted to the ICU s/p asystolic and cardiac arrest with multiple rounds of compressions.Had Arctic cooling protocol in ICU afterwards with transcutaneous pacing wire placed. The patient has had a similar episode in 2016. Back then it was blamed on cardizem and the medication was stopped with resolution of symptoms. She was not given a permanent pacemaker at that time. - Cardiac arrest due to sinus arrest, sinus node dysfunction, PAF in ICU. Mildly elevated troponin from CPR, HTN-uncontrolled currently paced with temporary pacer, vitals stable Had permanent pacemaker on Thursday 04/19 echo with preserved EF of 65-70%, no WMA -transferred to PCU today -heparin gtt stopped for PPM and not yet restarted--> will discuss AC with Cardio tomorrow -continue Vanco for prophylaxis -was on metoprolol at home, now started on Coreg by Cardio, continue amlodipine - Acute respiratory failure/arrest secondary to cardiac arrest. Initially suspected PNA on CT Chest. Repeat CXR 04/19 no infiltrate extubated 04/17, breathing well today on 4L-wean O2 as tolerated -finish out 5 day course Levaquin, then dc - LEEROY on CKD stage III: Cr remains high at 3.3-3.4, baseline medical education manager 1.8 likely ATN from cardiac arrest and poor kidney perfusion adequate UO, non-oliguric look for renal function to improve over next several days as ATN resolves K stable at 3.9 -Consult Nephrology if not improving or worsening - Anemia: H/H stable, no signs of bleeding any further after 20-30 mL from OGT in ER, hold on transfusion -follow CBC -check Fe studies as seems to be a chronic issue - HIV:Appreciate ID consultation and recommendations Checking CD4 count and HIV RNA quant -Holding all HAART therapy for LEEROY Lipase increased-no abd pain, US of abdomen shows cholelithiasis but nothing abnl on pancreas although limited views. Lipase trending downward. Could be medication effect from HAART? -follow lipase Prediabetes with hyperglycemia- HgbA1C 6.0% on labs c/w prediabetes -continue basal bolus insulin, glucose checks -Appreciate Pharmacy management Pulm nodules-seen on CT Chest -NEEDS f/u CT Chest in 3-6 months - Hx of transgender with hormone use-stable -restart Estradiol on dc full code insulin drip to control sugar 140-180 heparin SC 5000 DVT prophylaxis changed to heparin drip given A fib hold antiretrovirals until awake and lipase normalized. COnsider ID consult tomorrow FU lipase Will get US abdomen appreciate GI input. appreciate cardiology help
[2017-04-19] MEDS ORDERED: DOCUSATE SODIUM/SENNA 50/8.6MG TAB PO ONE (23:00)
[2017-04-19] MEDS ORDERED: DOCUSATE SODIUM 100 MG CAP ONE (23:10)
[2017-04-20 03:24] VITALS: BP 154/72; PULSE 89; TEMP 37.2; O2SAT 94
[2017-04-20] MEDS: HEPARIN SOD 5000 UNIT/0.5 ML CARP SQ SCH ×3 (05:40→21:35)
[2017-04-20 06:01] LABS: BASO % 0.1 %; BASO ABS # 0.01 K/uL (0-0.2); EOS % 1.4 %; HEMATOCRIT 24.6 % (42-52); IG% 0.4 %; LYMPH ABS # 1.29 K/uL (1.2-3.4); MEAN CELL VOLUME 92.5 fL (80-100); MEAN CORPUSCULAR HEMOGLOBIN 30.8 pg (25-34); MEAN CORPUSCULAR HGB CONC 33.3 g/dl (32-36); MEAN PLATELET VOLUME 10.4 fL (7.4-10.4); MONO % 8.1 %; PLATELET COUNT 152 K/uL (130-400); RED BLOOD COUNT 2.66 M/uL (4.7-6.1); WHITE BLOOD COUNT 9.19 K/uL (4.8-10.8)
[2017-04-20 06:16] LABS: PARTIAL THROMBOPLASTIN RATIO 1.1
[2017-04-20 06:27] LABS: COMPLETE YES
[2017-04-20 06:37] LABS: BUN/CREATININE RATIO 18.9 (10-20); CALCIUM 7.7 mg/dl (8.5-10.1); CREATININE 2.6 mg/dl (0.60-1.40); MAGNESIUM 2.2 mg/dl (1.8-2.4); POTASSIUM 4.1 mmol/L (3.5-5.1)
[2017-04-20 06:40] LABS: FERRITIN 135.9 ng/ml (8.0-388.0); PHOSPHORUS 3.1 mg/dl (2.5-4.9)
--- NOTE | 2017-04-20 06:42 | DIAGNOSTIC IMAGING REPORT ---
CHEST 2 VIEWS ROUTINE CLINICAL HISTORY: Chest x-ray status post pacemaker placement CONGESTIVE FAILURE COMPARISON STUDY: 04/19/2017 FINDINGS: The cardiac and mediastinal contours remain stable. There is a left subclavian dual-chamber central venous pacemaker present. There is no pneumothorax. There are small bilateral pleural effusions. There are nonspecific bilateral pulmonary airspace opacities which appear slightly progressive. There are left lower lobe air bronchograms.[ IMPRESSION: Slight progression in the bilateral pulmonary airspace opacities. This could be secondary to pulmonary edema or a multifocal pneumonia. Clinical and radiographic follow-up is recommended. Electronically signed by: Barron Alonso M.D. 04/20/2017 6:41 AM Dictated Date/Time: 04/20/2017 6:39 AM
[2017-04-20] MEDS: INSULIN ASPART 100 UNITS/ML 3 ML PEN SC SCH ×4 (08:16→21:33)
[2017-04-20 08:18] VITALS: BP 174/71; PULSE 92; TEMP 37.1; O2SAT 93
[2017-04-20] MEDS: INSULIN GLARGINE SOLOSTAR 100 UNITS/ML 3 ML PEN SC SCH ×2 (08:19→21:34)
[2017-04-20] MEDS: CARVEDILOL 6.25 MG TAB PO SCH ×2 (08:23→21:30)
[2017-04-20] MEDS: AMLODIPINE BESYLATE 5 MG TAB PO SCH (08:24)
--- NOTE | 2017-04-20 09:20 | Cardiology Follow-Up ---
Subjective Date of Service: Apr 20, 2017. Pt evaluation today including: conversation w/ patient, physical exam, chart review, lab review, review of studies History of Present Illness Patient had minimal pain at the implant site over the course of the evening. No pain this morning. She claims to be breathing well. Social History Smoking Status: Current Every Day Smoker History of Alcohol Use: No Review of Systems Respiratory: No cough, No shortness of breath, No dyspnea at rest Cardiac: No chest pain, No edema, No palpitations Objective Vital Signs Past 12 Hours Date Time Temp Pulse Resp B/P (MAP) Pulse Ox O2 Delivery O2 Flow Rate FiO2 04/20/17 08:18 37.1 92 20 174/71 (105) 93 Room Air 04/20/17 08:00 Nasal Cannula 4.0 04/20/17 04:00 Nasal Cannula 4.0 04/20/17 03:24 37.2 89 22 154/72 (99) 94 Nasal Cannula 5.0 04/20/17 00:00 Nasal Cannula 4.0 04/19/17 23:54 37.4 78 23 141/63 (89) 94 Nasal Cannula 5.0 Last Recorded Weight-Kilograms: 69.300 Physical Exam Constitutional: Level of Distress: NAD Lungs: Auscultation: breath sounds normal Cardiovascular: Heart Auscultation: no murmurs, no rubs, tachycardia, irregular rate rhythm Extremities: no edema Pacemaker implant site appears normal. No significant swelling or evidence of hematoma. No drainage. No significant ecchymosis or erythema. Data Laboratory Results: Last 24 Hours Test 04/19/17 11:26 04/19/17 15:56 04/19/17 20:25 04/20/17 05:33 Bedside Glucose 118 mg/dl 229 mg/dl 157 mg/dl White Blood Count 9.19 K/uL Red Blood Count 2.66 M/uL Hemoglobin 8.2 g/dL Hematocrit 24.6 % Mean Corpuscular Volume 92.5 fL Mean Corpuscular Hemoglobin 30.8 pg Mean Corpuscular Hemoglobin Concent 33.3 g/dl Platelet Count 152 K/uL Mean Platelet Volume 10.4 fL Neutrophils (%) (Auto) 76.0 % Lymphocytes (%) (Auto) 14.0 % Monocytes (%) (Auto) 8.1 % Eosinophils (%) (Auto) 1.4 % Basophils (%) (Auto) 0.1 % Neutrophils # (Auto) 6.98 K/uL Lymphocytes # (Auto) 1.29 K/uL Monocytes # (Auto) 0.74 K/uL Eosinophils # (Auto) 0.13 K/uL Basophils # (Auto) 0.01 K/uL RDW Standard Deviation 42.0 fL RDW Coefficient of Variation 12.5 % Immature Granulocyte % (Auto) 0.4 % Immature Granulocyte # (Auto) 0.04 K/uL Activated Partial Thromboplast Time 27.3 SECONDS Partial Thromboplastin Ratio 1.1 Sodium Level 138 mmol/L Potassium Level 4.1 mmol/L Chloride Level 109 mmol/L Carbon Dioxide Level 21 mmol/L Anion Gap 8.0 mmol/L Blood Urea Nitrogen 49 mg/dl Creatinine 2.60 mg/dl Est Creatinine Clear Calc Drug Dose 28.5 ml/min Estimated GFR () 29.1 Estimated GFR (Non- 25.1 BUN/Creatinine Ratio 18.9 Random Glucose 169 mg/dl Calcium Level 7.7 mg/dl Phosphorus Level 3.1 mg/dl Magnesium Level 2.2 mg/dl Iron Level 54 mcg/dl Ferritin 135.9 ng/ml Total Bilirubin 1.0 mg/dl Direct Bilirubin 0.3 mg/dl Aspartate Amino Transf (AST/SGOT) 25 U/L Alanine Aminotransferase (ALT/SGPT) 56 U/L Alkaline Phosphatase 75 U/L Total Protein 6.5 gm/dl Albumin 2.5 gm/dl Vitamin B12 Level 363 pg/mL Folate 10.12 ng/mL Test 04/20/17 07:09 Bedside Glucose 222 mg/dl Imaging: Single-view chest x-ray obtained yesterday as well as two view x-ray obtained this morning were reviewed. This reveals adequate lead placement. No evidence of pneumothorax or other complication. Telemetry reviewed: Sinus rhythm Complete device interrogation was performed. The patient has normal sensing and thresholds on both leads. No arrhythmias detected. Normal device function. Assessment and Plan Sinus arrest: Patient underwent successful implantation of dual-chamber permanent pacemaker yesterday. The not appear to be any complications. She was advised to keep the wound dry and Steri-Strips intact for 1 week at which point she will follow up for wound check. I would recommend no lifting of the left arm above the shoulder or behind the neck for period of 6 weeks time. Atrial fibrillation: No recurrent events. This was likely related to her hospitalization and acute illness. I would not recommend systemic anticoagulation based on the isolated episode seen in the hospital. I do not believe she needs return to heparinization. We can continue to monitor for additional episodes of atrial fibrillation with her device and decide on anticoagulation should she have recurrences.
[2017-04-20] MEDS ORDERED: MAGNESIUM HYDROXIDE SUSP 30 ML UDC PO ONE (11:30)
--- NOTE | 2017-04-20 11:45 | Pharmacy Progress Note ---
Glycemic: Assessment & Plan Date of Service Apr 20, 2017. Assessment & Plan ASSESSMENT: * See progress note from 04/17 for more background info, in short: * Pt receiving SQ bolus insulin for hyperglycemia secondary to baseline DM ( outpatient regimen on hold),stress/infection * Patient received 17 units of insulin yesterday with BSGs ranging from 119 - 229mg/dL in the past 24 hours * Only one BSG out of goal range * Plan to continue current regimen with Novolog based on wt/stress of 2 and Lantus dosing based on BSG trend PLAN FOR INPATIENT GLYCEMIC CONTROL: * Lantus based on BSG trend * IF BSG <140: 0 units * If BSG 140-180: 6 units * If BSG >180: 12 units * Continue Novolog ACHS * Goal range 140-180 * CF 30 * CR 10 * Please note that the plan above was derived based on current level of insulin resistance and hospital stress. These recommendations are appropriate for inpatient admission only. Plan of care upon discharge will need to be reassessed to avoid potential outpatient hypo/hyperglycemia. Thank you.
[2017-04-20 12:13] VITALS: BP 163/83; PULSE 87; TEMP 37.6; O2SAT 2
--- NOTE | 2017-04-20 12:31 | Medical Student: [facility] ---
Med Student Progress Note Date of Service Apr 20, 2017. Subjective Pt evaluation today including: conversation w/ patient, chart review, review of studies 61 year old male to female transgender woman with a history of HIV, CKD, DM type II, HTN, presented in cardiac arrest (asystole) with an episode of atrial fibrillation during his stay. She had a permanent pacemaker inserted yesterday where she is still experiencing some soreness at the site as well as some tenderness from the chest compressions done during her cardiac arrest. Overall she feels better and denies any chest pain, shortness of breath, heart palpitations, or lightheadedness. She has some constipation and was given prune juice last night but it has not helped. She states that it made her "gas-y". Today she feels like she has to go to the bathroom but nothing will come out. She denies any abdominal pain, nausea , or vomiting. She has no problems urinating. She has some drainage coming from blisters on her right forearm. This is where she had dopamine infiltration during her cardiac arrest. Review of Systems Constitutional: No fever, No chills, No sweats, No weakness Respiratory: No cough, No shortness of breath, No dyspnea at rest Cardiac: No chest pain, No palpitations Abdomen: + constipation, No pain, No nausea, No vomiting Male : No dysuria, No urinary frequency, No incontinence Objective Vital Signs Date Time Temp Pulse Resp B/P (MAP) Pulse Ox O2 Delivery O2 Flow Rate FiO2 04/20/17 08:18 37.1 92 20 174/71 (105) 93 Room Air 04/20/17 08:00 Nasal Cannula 4.0 04/20/17 04:00 Nasal Cannula 4.0 04/20/17 03:24 37.2 89 22 154/72 (99) 94 Nasal Cannula 5.0 04/20/17 00:00 Nasal Cannula 4.0 04/19/17 23:54 37.4 78 23 141/63 (89) 94 Nasal Cannula 5.0 04/19/17 20:10 37.4 105 20 176/69 (104) 91 Nasal Cannula 4.0 04/19/17 20:00 Room Air 04/19/17 18:40 106 171/68 (102) 04/19/17 17:16 105 185/79 (114) 04/19/17 17:06 37.1 100 20 182/78 (112) 92 Nasal Cannula 2.0 04/19/17 16:00 95 Nasal Cannula 5.0 04/19/17 16:00 36.8 92 18 173/75 (107) 95 Nasal Cannula 5.0 04/19/17 14:45 93 18 160/84 (109) 95 04/19/17 14:30 93 20 174/72 (106) 94 04/19/17 14:15 94 20 173/75 (107) 93 04/19/17 14:01 94 23 179/72 (107) 94 04/19/17 14:00 94 20 94 04/19/17 13:46 95 23 150/80 (103) 93 04/19/17 13:30 90 16 171/71 (104) 97 04/19/17 13:15 93 18 167/71 (103) 96 04/19/17 13:00 95 20 163/74 (103) 95 04/19/17 12:45 98 20 178/72 (107) 92 04/19/17 12:30 97 23 173/73 (106) 92 04/19/17 12:15 94 22 161/82 (108) 92 Physical Exam General Appearance: WD/WN, no apparent distress Eyes: bilateral eyes PERRL Neck: no carotid bruits Respiratory/Chest: lungs clear, normal breath sounds, no respiratory distress, + pertinent finding (Mild sternal tenderness) Cardiovascular: regular rate, rhythm, no edema, no gallop, no JVD, no murmur Abdomen: normal bowel sounds, non tender, soft Neurologic/Psychiatric: alert, oriented x 3 Lymphatic: no adenopathy Laboratory Results Last 24 Hours Test 04/19/17 15:56 04/19/17 20:25 04/20/17 05:33 04/20/17 07:09 Bedside Glucose 229 mg/dl 157 mg/dl 222 mg/dl White Blood Count 9.19 K/uL Red Blood Count 2.66 M/uL Hemoglobin 8.2 g/dL Hematocrit 24.6 % Mean Corpuscular Volume 92.5 fL Mean Corpuscular Hemoglobin 30.8 pg Mean Corpuscular Hemoglobin Concent 33.3 g/dl Platelet Count 152 K/uL Mean Platelet Volume 10.4 fL Neutrophils (%) (Auto) 76.0 % Lymphocytes (%) (Auto) 14.0 % Monocytes (%) (Auto) 8.1 % Eosinophils (%) (Auto) 1.4 % Basophils (%) (Auto) 0.1 % Neutrophils # (Auto) 6.98 K/uL Lymphocytes # (Auto) 1.29 K/uL Monocytes # (Auto) 0.74 K/uL Eosinophils # (Auto) 0.13 K/uL Basophils # (Auto) 0.01 K/uL RDW Standard Deviation 42.0 fL RDW Coefficient of Variation 12.5 % Immature Granulocyte % (Auto) 0.4 % Immature Granulocyte # (Auto) 0.04 K/uL Activated Partial Thromboplast Time 27.3 SECONDS Partial Thromboplastin Ratio 1.1 Sodium Level 138 mmol/L Potassium Level 4.1 mmol/L Chloride Level 109 mmol/L Carbon Dioxide Level 21 mmol/L Anion Gap 8.0 mmol/L Blood Urea Nitrogen 49 mg/dl Creatinine 2.60 mg/dl Est Creatinine Clear Calc Drug Dose 28.5 ml/min Estimated GFR () 29.1 Estimated GFR (Non- 25.1 BUN/Creatinine Ratio 18.9 Random Glucose 169 mg/dl Calcium Level 7.7 mg/dl Phosphorus Level 3.1 mg/dl Magnesium Level 2.2 mg/dl Iron Level 54 mcg/dl Ferritin 135.9 ng/ml Total Bilirubin 1.0 mg/dl Direct Bilirubin 0.3 mg/dl Aspartate Amino Transf (AST/SGOT) 25 U/L Alanine Aminotransferase (ALT/SGPT) 56 U/L Alkaline Phosphatase 75 U/L Total Protein 6.5 gm/dl Albumin 2.5 gm/dl Vitamin B12 Level 363 pg/mL Folate 10.12 ng/mL Test 04/20/17 11:07 Bedside Glucose 171 mg/dl Medications Medications (Trade) Dose Ordered Sig/Carlin Route Start Time Stop Time Status Last Admin Dose Admin Heparin Sodium (Porcine) (Heparin Sq 5000 Unit/0.5ml) 5,000 unit Q8 SQ 04/19/17 14:00 05/19/17 13:59 04/20/17 05:40 5,000 UNIT Vancomycin HCl 500 mg/Sodium Chloride 260 ml @ 125 mls/hr TODAY@2100 IV 04/19/17 21:00 04/19/17 23:05 DC 04/19/17 21:38 125 MLS/HR Carvedilol (Coreg Tab) 6.25 mg BID PO 04/19/17 19:00 05/19/17 18:59 04/20/17 08:23 6.25 MG Senna/Docusate Sodium (Senokot S Tab) 1 tab NOW ONCE PO 04/19/17 23:00 04/19/17 23:01 DC 04/19/17 23:13 1 TAB Assessment and Plan Problems Acute renal failure Cardiopulmonary arrest CKD (chronic kidney disease), stage III DM type 2 (diabetes mellitus, type 2) G-6-PD deficiency HIV (human immunodeficiency virus infection) HTN (hypertension) [id number] transgender person Assessment and Plan: 61 year old male to female transgender woman who presented to the ED in asystole and has since also had documented atrial fibrillation. She states that she felt some shortness of breath and bilateral leg swelling for 2 days prior to arrival. Past medical history includes HIV, HTN, Stroke, Diabetes Type II, G6PD, and Stage III CKD. Upon admission, she developed acute respiratory failure secondary to the cardiac arrest and required immediate intubation. She was extubated 2 days ago and has slowly improved with her breathing and is currently breathing on room air. In addition to her CKD, an acute renal injury, most likely due to hypoperfusion was also documented. Yesterday she had a permanent pacemaker successfully put in and is recovering well from that. She has had some tachycardia since then. Her blood pressure readings continue to be elevated. Her imaging and procedures during this hospital course also include: CT Scan showed: cardiomegaly, right pleural effusion, 2 nodules (one in the right upper lobe and the other in the right middle lobe). Abdominal x-ray: asymptomatic cholelithiasis EKG: most recent EKG shows NSR, RBBB, and Right axis deviation Echo: small pericardial effusion was documented. No structural wall or valvular defects. Atrial Fibrillation and Asystole Well managed by the successful insertion of a pacemaker. As per lasting machine operator recommendation, continue to hold heparin. It is likely that this episode of atrial fibrillation was due to acute illness and hospitalization so anticoagulation is not recommended at this time. If another episode recurs, we can reassess her anticoagulation status. -follow up in 1 week. Hypertension and Tachycardia -Continue Amlodipine for hypertension -Cardiology was consulted and recommended carvedilol, both for tachycardia and for the hypertension. Since starting the carvedilol yesterday, her blood pressures have continued to be high although her heart rate has stabilized to < 100. If her BP does not come down by tomorrow, consider titrating up on the carvedilol dose. Pulmonary edema v. PNA on CXR Today's chest x-ray showed evidence for either bilateral pulmonary edema or PNA. It is possible that it is pulmonary edema secondary to decreased renal function. Unfortunately, we can't start diuretics until kidney function returns to baseline. -She has been on Levofloxacin for 5 days and should continue it for at least 2 more days to cover for Community acquired Pneumonia -Follow up with CXR Anemia She continues to have low hgb counts, although it is slightly elevated compared to yesterday. Serum Fe and Ferritin levels were within normal limits but we are waiting on TIBC levels. If TIBC levels are normal, consider work-up for anemia as an outpatient. Given her history, she may need to have a hemoglobin electrophoresis. Acute Renal Injury w/ CKD Stage III Based on her Cr and BUN, which are still high but lower than yesterday, her kidney function seems to be improving back to baseline. -Continue to encourage fluid intake and monitor Cr, BUN, and Na. HIV ID was consulted and recommended to continue to hold HAART therapy until kidney function resumes back to baseline. Diabetes Type II Her recent glucose levels have been high but this may be attributed to stress of the recent surgery and hospitalization. -Continue to monitor her glucose levels 4x daily -Continue Basal and Bolus Insulin Pulmonary Nodules found on CT Recommend follow up and repeat CT in 3-6 months. Encourage patient to consider smoking cessation DVT Prophylaxis -Continue SQ Heparin injections Continued [facility] stay due to: multiple IV medications needed, other
--- NOTE | 2017-04-20 14:02 | Wound Consultation: Inpatient ---
Wound Consultation Date of Consultation: Apr 20, 2017. Attending Physician: Lissa Johnson MD Reason for Consultation: Traumatic wound right upper extremity History of Present Illness Patient had a cardiac arrest 3 Wednesday and was admitted to [facility]. During this time the patient had an infiltration of dopamine in the right forearm. The site was then managed with a nitroglycerin glycerin patch. Patient has a blister formation that has occurred at this area. Opti foam dressings have been applied. Patient denies any significant pain swelling or redness in the area. Patient denies any other systemic complaints at this time. Family History No pertinent family history stated Social History Smoking Status: Current Every Day Smoker Alcohol Use: none Drug Use: none Housing Status: other Occupation Status: unemployed Allergies Coded Allergies: Penicillins (Verified Allergy, Intermediate, UNKNOWN, 04/16/17) Home Medications Scheduled Amlodipine Besylate (Norvasc), 1 TAB PO DAILY Aspirin (Aspirin EC Low Dose), 81 MG PO QAM Atorvastatin (Atorvastatin Calcium), 40 MG PO QAM Bumetanide (Bumex), 1 MG PO DIRECTED Darunavir Ethanolate (Prezista), 800 MG PO HS Zojjqdwbeabs-Olaupleewz-Lwgehr (Genvoya [phone] mg), 1 TAB PO DAILY Estradiol (Estradiol), 1 MG PO DAILY Estradiol (Climara), 0.1 MG TOP DAILY Finasteride (Proscar), 5 MG PO DAILY Insulin Human Regular (Humulin R), 1 DOSE SQ SLIDING SCALE Latanoprost 0.005% Oph (Xalatan 0.005% Oph), 1 DROP OPB HS Metoprolol Tartrate (Lopressor) (Lopressor), 50 MG PO BID Multivitamin (Multivitamin), 1 TAB PO DAILY Potassium Chloride (Micro-K Ext Rel), 10 MEQ PO DAILY Scheduled PRN Glucose (Bd Glucose), 4 MG PO QID PRN for PRN Ondansetron Hcl (Zofran), 8 MG PO BID PRN for Nausea Inpatient Medications Current Inpatient Medications Medications (Trade) Dose Ordered Sig/Carlin Route Start Time Stop Time Status Last Admin Dose Admin Miscellaneous Information (Consult Glycemic Management Pharmacy) 1 ea UD PRN N/A 04/16/17 15:00 05/16/17 14:59 Heparin Sodium (Porcine) (Heparin 10 Unit/ ml 5 ml Flush) 5 ml PRN PRN FLUSH 04/17/17 00:30 05/17/17 00:29 Insulin Aspart (novoLOG ASPART) SLIDING SCALE If C... ACHS SC 04/17/17 06:45 05/17/17 06:44 04/20/17 12:51 10 UNITS Glucose (Glucose 40% Gel) UD PRN PO 04/17/17 05:00 05/17/17 04:59 Glucose (Glucose Chew Tab) 1 tabs UD PRN PO 04/17/17 05:00 05/17/17 04:59 Dextrose (Dextrose 50% 50ML Syringe) 50 ml UD PRN IV 04/17/17 05:00 05/17/17 04:59 Glucagon (Glucagon Inj) 1 mg UD PRN SQ 04/17/17 05:00 05/17/17 04:59 Hydralazine HCl (HydrALAZINE INJ) 20 mg Q4 PRN IV. 04/17/17 12:15 05/17/17 12:14 04/19/17 17:37 20 MG Amlodipine Besylate (Norvasc Tab) 10 mg QAM PO 04/18/17 09:00 05/18/17 08:59 04/20/17 08:24 10 MG Acetaminophen (Tylenol Tab) 650 mg Q6H PRN PO 04/17/17 20:00 05/17/17 19:59 Insulin Glargine (Lantus Solostar Pen) SEE PROTOCOL TEXT BID SC 04/18/17 21:00 05/18/17 20:59 04/20/17 08:19 6 UNITS Oxycodone HCl (Roxicodone Immediate Rel Tab) 5 mg Q4RWA PRN PO 04/19/17 10:15 05/03/17 10:14 04/19/17 19:40 5 MG Heparin Sodium (Porcine) (Heparin Sq 5000 Unit/0.5ml) 5,000 unit Q8 SQ 04/19/17 14:00 05/19/17 13:59 04/20/17 12:49 5,000 UNIT Levofloxacin 750 mg/Prmx 150 ml @ 100 mls/hr TODAY@1800 IV 04/20/17 18:00 04/20/17 19:29 Glucose (Glucose 40% Gel) 15-30 GRAMS 15 GRAMS... UD PRN PO 04/19/17 16:45 05/19/17 16:44 Glucose (Glucose Chew Tab) 4-8 Tablets 4 Tabl... UD PRN PO 04/19/17 16:45 05/19/17 16:44 Dextrose (Dextrose 50% 50ML Syringe) 25-50ML OF 50% DW IV FOR... UD PRN IV 04/19/17 16:45 05/19/17 16:44 Glucagon (Glucagon Inj) 1 mg UD PRN SQ 04/19/17 16:45 05/19/17 16:44 Carvedilol (Coreg Tab) 6.25 mg BID PO 04/19/17 19:00 05/19/17 18:59 04/20/17 08:23 6.25 MG Physical Exam Date Time Temp Pulse Resp B/P (MAP) Pulse Ox O2 Delivery O2 Flow Rate FiO2 04/20/17 12:13 37.6 87 18 163/83 (109) 2 Room Air 2.0 04/20/17 08:18 37.1 92 20 174/71 (105) 93 Room Air 04/20/17 08:00 Nasal Cannula 4.0 04/20/17 04:00 Nasal Cannula 4.0 04/20/17 03:24 37.2 89 22 154/72 (99) 94 Nasal Cannula 5.0 04/20/17 00:00 Nasal Cannula 4.0 04/19/17 23:54 37.4 78 23 141/63 (89) 94 Nasal Cannula 5.0 04/19/17 20:10 37.4 105 20 176/69 (104) 91 Nasal Cannula 4.0 04/19/17 20:00 Room Air 04/19/17 18:40 106 171/68 (102) 04/19/17 17:16 105 185/79 (114) 04/19/17 17:06 37.1 100 20 182/78 (112) 92 Nasal Cannula 2.0 04/19/17 16:00 95 Nasal Cannula 5.0 04/19/17 16:00 36.8 92 18 173/75 (107) 95 Nasal Cannula 5.0 04/19/17 14:45 93 18 160/84 (109) 95 04/19/17 14:30 93 20 174/72 (106) 94 04/19/17 14:15 94 20 173/75 (107) 93 04/19/17 14:01 94 23 179/72 (107) 94 04/19/17 14:00 94 20 94 General: The patient is lying in a hospital bed in no distress. Alert, cooperative and appropriate to all questions. HEENT: Pupils equal and reactive to light. Sclera clear, EOM intact. Neck: Supple, No JVD noted Chest: CTA in all purcell. No deformity Heart: RRR without murmurs, S3, S4, thrills, rubs or heaves Extremities: Traumatic wound is noted in the right upper extremity forearm volar surface with blister formation. Following debridement the area measured 10 x 8 x 0.1 cm. No central slough is noted. No periwound erythema edema pain or fluctuance noted. Full range of motion is present in the forearm hand and digits. Neurological: Alert and oriented x3. No focal deficits. Laboratory Results Last 24 Hours Test 04/19/17 15:56 04/19/17 20:25 04/20/17 05:33 04/20/17 07:09 Bedside Glucose 229 mg/dl 157 mg/dl 222 mg/dl White Blood Count 9.19 K/uL Red Blood Count 2.66 M/uL Hemoglobin 8.2 g/dL Hematocrit 24.6 % Mean Corpuscular Volume 92.5 fL Mean Corpuscular Hemoglobin 30.8 pg Mean Corpuscular Hemoglobin Concent 33.3 g/dl Platelet Count 152 K/uL Mean Platelet Volume 10.4 fL Neutrophils (%) (Auto) 76.0 % Lymphocytes (%) (Auto) 14.0 % Monocytes (%) (Auto) 8.1 % Eosinophils (%) (Auto) 1.4 % Basophils (%) (Auto) 0.1 % Neutrophils # (Auto) 6.98 K/uL Lymphocytes # (Auto) 1.29 K/uL Monocytes # (Auto) 0.74 K/uL Eosinophils # (Auto) 0.13 K/uL Basophils # (Auto) 0.01 K/uL RDW Standard Deviation 42.0 fL RDW Coefficient of Variation 12.5 % Immature Granulocyte % (Auto) 0.4 % Immature Granulocyte # (Auto) 0.04 K/uL Activated Partial Thromboplast Time 27.3 SECONDS Partial Thromboplastin Ratio 1.1 Sodium Level 138 mmol/L Potassium Level 4.1 mmol/L Chloride Level 109 mmol/L Carbon Dioxide Level 21 mmol/L Anion Gap 8.0 mmol/L Blood Urea Nitrogen 49 mg/dl Creatinine 2.60 mg/dl Est Creatinine Clear Calc Drug Dose 28.5 ml/min Estimated GFR () 29.1 Estimated GFR (Non- 25.1 BUN/Creatinine Ratio 18.9 Random Glucose 169 mg/dl Calcium Level 7.7 mg/dl Phosphorus Level 3.1 mg/dl Magnesium Level 2.2 mg/dl Iron Level 54 mcg/dl Ferritin 135.9 ng/ml Total Bilirubin 1.0 mg/dl Direct Bilirubin 0.3 mg/dl Aspartate Amino Transf (AST/SGOT) 25 U/L Alanine Aminotransferase (ALT/SGPT) 56 U/L Alkaline Phosphatase 75 U/L Total Protein 6.5 gm/dl Albumin 2.5 gm/dl Vitamin B12 Level 363 pg/mL Folate 10.12 ng/mL Test 04/20/17 11:07 Bedside Glucose 171 mg/dl Assessment & Plan Assessment: Traumatic wound right upper extremity Plan: At this time the site did require debridement. With the patient's permission after the application of topical Xylocaine 4% the blisters would be removed in removed with scissors and forceps. No significant bleeding occurred patient tolerated the procedure well. The site will be dressed today with Xeroform and gauze dressings changed daily patient will continue to be monitored during the hospital course and followed up in the outpatient clinic as needed upon discharge. Non-excisional debridement of approximately 80 cm.
[2017-04-20 15:52] VITALS: BP 187/74; PULSE 92; TEMP 37.2; O2SAT 92
[2017-04-20] MEDS: LEVOFLOXACIN / D5W 750 MG in PREMIXED IN D5W 150 ML IV SCH (17:08)
[2017-04-20] MEDS ORDERED: LEVOFLOXACIN / D5W 750 MG in PREMIXED IN D5W 150 ML IV SCH (18:00)
[2017-04-20 19:53] VITALS: BP 163/75; PULSE 97; TEMP 37.4; O2SAT 92
[2017-04-20 23:40] VITALS: BP 156/70; PULSE 84; TEMP 37.6; O2SAT 95
--- NOTE | 2017-04-20 23:40 | Hospitalist Progress Note ---
Hospitalist Progress Note Date of Service Apr 20, 2017. Subjective Pt evaluation today including: conversation w/ patient C/o some soreness at pacer site, no CP or SOB. Has c/o constipation. All Other Systems: Reviewed and Negative Objective Vital Signs Date Time Temp Pulse Resp B/P (MAP) Pulse Ox O2 Delivery O2 Flow Rate FiO2 04/20/17 12:13 37.6 87 18 163/83 (109) 2 Room Air 2.0 04/20/17 08:18 37.1 92 20 174/71 (105) 93 Room Air 04/20/17 08:00 Nasal Cannula 4.0 04/20/17 04:00 Nasal Cannula 4.0 04/20/17 03:24 37.2 89 22 154/72 (99) 94 Nasal Cannula 5.0 04/20/17 00:00 Nasal Cannula 4.0 04/19/17 23:54 37.4 78 23 141/63 (89) 94 Nasal Cannula 5.0 04/19/17 20:10 37.4 105 20 176/69 (104) 91 Nasal Cannula 4.0 04/19/17 20:00 Room Air 04/19/17 18:40 106 171/68 (102) 04/19/17 17:16 105 185/79 (114) 04/19/17 17:06 37.1 100 20 182/78 (112) 92 Nasal Cannula 2.0 04/19/17 16:00 95 Nasal Cannula 5.0 04/19/17 16:00 36.8 92 18 173/75 (107) 95 Nasal Cannula 5.0 04/19/17 14:45 93 18 160/84 (109) 95 04/19/17 14:30 93 20 174/72 (106) 94 04/19/17 14:15 94 20 173/75 (107) 93 04/19/17 14:01 94 23 179/72 (107) 94 04/19/17 14:00 94 20 94 04/19/17 13:46 95 23 150/80 (103) 93 Physical Exam General Appearance: WD/WN, no apparent distress Eyes: normal inspection, sclerae normal ENT: hearing grossly normal Neck: trachea midline Respiratory/Chest: no respiratory distress, no accessory muscle use, + crackles (at the bases) Cardiovascular: regular rate, rhythm, no edema, no gallop, no murmur Abdomen: normal bowel sounds, non tender, soft Extremities: no pedal edema, no calf tenderness Neurologic/Psychiatric: alert Skin: normal color, warm/dry, + pertinent finding (Optifoam in place in the right arm) Laboratory Results Last 24 Hours Test 04/19/17 15:56 04/19/17 20:25 04/20/17 05:33 04/20/17 07:09 Bedside Glucose 229 mg/dl 157 mg/dl 222 mg/dl White Blood Count 9.19 K/uL Red Blood Count 2.66 M/uL Hemoglobin 8.2 g/dL Hematocrit 24.6 % Mean Corpuscular Volume 92.5 fL Mean Corpuscular Hemoglobin 30.8 pg Mean Corpuscular Hemoglobin Concent 33.3 g/dl Platelet Count 152 K/uL Mean Platelet Volume 10.4 fL Neutrophils (%) (Auto) 76.0 % Lymphocytes (%) (Auto) 14.0 % Monocytes (%) (Auto) 8.1 % Eosinophils (%) (Auto) 1.4 % Basophils (%) (Auto) 0.1 % Neutrophils # (Auto) 6.98 K/uL Lymphocytes # (Auto) 1.29 K/uL Monocytes # (Auto) 0.74 K/uL Eosinophils # (Auto) 0.13 K/uL Basophils # (Auto) 0.01 K/uL RDW Standard Deviation 42.0 fL RDW Coefficient of Variation 12.5 % Immature Granulocyte % (Auto) 0.4 % Immature Granulocyte # (Auto) 0.04 K/uL Activated Partial Thromboplast Time 27.3 SECONDS Partial Thromboplastin Ratio 1.1 Sodium Level 138 mmol/L Potassium Level 4.1 mmol/L Chloride Level 109 mmol/L Carbon Dioxide Level 21 mmol/L Anion Gap 8.0 mmol/L Blood Urea Nitrogen 49 mg/dl Creatinine 2.60 mg/dl Est Creatinine Clear Calc Drug Dose 28.5 ml/min Estimated GFR () 29.1 Estimated GFR (Non- 25.1 BUN/Creatinine Ratio 18.9 Random Glucose 169 mg/dl Calcium Level 7.7 mg/dl Phosphorus Level 3.1 mg/dl Magnesium Level 2.2 mg/dl Iron Level 54 mcg/dl Ferritin 135.9 ng/ml Total Bilirubin 1.0 mg/dl Direct Bilirubin 0.3 mg/dl Aspartate Amino Transf (AST/SGOT) 25 U/L Alanine Aminotransferase (ALT/SGPT) 56 U/L Alkaline Phosphatase 75 U/L Total Protein 6.5 gm/dl Albumin 2.5 gm/dl Vitamin B12 Level 363 pg/mL Folate 10.12 ng/mL Test 04/20/17 11:07 Bedside Glucose 171 mg/dl Assessment and Plan 61 y/o transgender female with recurrent asystole, known to have HIV, HTN, who was admitted to the ICU s/p asystolic and cardiac arrest with multiple rounds of compressions.Had Arctic cooling protocol in ICU afterwards with transcutaneous pacing wire placed. The patient has had a similar episode in 2016. Back then it was blamed on cardizem and the medication was stopped with resolution of symptoms. She was not given a permanent pacemaker at that time. - Cardiac arrest due to sinus arrest, sinus node dysfunction, PAF in ICU. Mildly elevated troponin from CPR, HTN-uncontrolled but improved after starting Coreg. Pacemaker is functioning properly. I discussed the case with cardiology at length today. There is a possibility of pulmonary edema on his chest x-ray versus multifocal pneumonia status post resuscitation. His acute kidney injury prevents adequate diuresis at this time. Had permanent pacemaker on Thursday 04/19 echo with preserved EF of 65-70%, no WMA -Continue telemetry monitoring -heparin gtt for atrial fibrillation stopped as this is likely an isolated event due to acute events-if has increased burden of atrial fibrillation as per his pacemaker interrogations in the future, can consider restarting anticoagulation at that time -was on metoprolol at home, now started on Coreg by Cardio-we will increase the dose today for uncontrolled hypertension, continue amlodipine - Acute hypoxemic respiratory failure/arrest secondary to cardiac arrest. Initially suspected PNA on CT Chest. Repeat CXR 04/20 with persistent by basilar opacities which could be pulmonary edema or pneumonia. No other signs or symptoms of pneumonia. 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 Iron studies consistent with Anemia of Chronic disease, likely o f renal disease. B12 and folate normal. -follow CBC - HIV:Appreciate ID consultation and recommendations Checking CD4 count and HIV RNA quant -Holding all HAART therapy for LEEROY until renal function improves Lipase increased-no abd pain, US of abdomen shows cholelithiasis but nothing abnl on pancreas although limited views. Lipase trending downward. Could be medication effect from HAART? -follow lipase Prediabetes with hyperglycemia- HgbA1C 6.0% on labs c/w prediabetes -continue basal bolus insulin, glucose checks -Appreciate Pharmacy management Pulm nodules-seen on CT Chest -NEEDS f/u CT Chest in 3-6 months - Hx of transgender with hormone use-stable -restart Estradiol on dc full code insulin drip to control sugar 140-180 heparin SC 5000 DVT prophylaxis changed to heparin drip given A fib hold antiretrovirals until awake and lipase normalized. COnsider ID consult tomorrow FU lipase Will get US abdomen appreciate GI input. appreciate cardiology help
[2017-04-21 04:12] VITALS: BP 160/72; PULSE 87; TEMP 37.8; O2SAT 94
[2017-04-21] MEDS: HEPARIN SOD 5000 UNIT/0.5 ML CARP SQ SCH ×3 (05:45→21:22)
[2017-04-21 07:10] LABS: BASO % 0.1 %; BASO ABS # 0.01 K/uL (0-0.2); EOS % 2.4 %; HEMATOCRIT 25.9 % (42-52); IG% 0.5 %; LYMPH % 15.1 %; LYMPH ABS # 1.26 K/uL (1.2-3.4); MEAN CELL VOLUME 93.2 fL (80-100); MEAN CORPUSCULAR HEMOGLOBIN 29.9 pg (25-34); MEAN PLATELET VOLUME 10.7 fL (7.4-10.4); MONO % 10.7 %; NEUT % 71.2 %; PLATELET COUNT 179 K/uL (130-400); RED BLOOD COUNT 2.78 M/uL (4.7-6.1); WHITE BLOOD COUNT 8.33 K/uL (4.8-10.8)
[2017-04-21 07:40] LABS: BUN/CREATININE RATIO 19.3 (10-20); CREATININE 2.1 mg/dl (0.60-1.40); MAGNESIUM 2.1 mg/dl (1.8-2.4); POTASSIUM 4.1 mmol/L (3.5-5.1)
[2017-04-21 07:45] LABS: PHOSPHORUS 2.2 mg/dl (2.5-4.9)
[2017-04-21 07:52] VITALS: BP 157/70; PULSE 86; TEMP 37.4; O2SAT 94
[2017-04-21 07:55] LABS: COMPLETE YES
[2017-04-21] MEDS: INSULIN ASPART 100 UNITS/ML 3 ML PEN SC SCH ×4 (08:20→20:34)
[2017-04-21] MEDS: AMLODIPINE BESYLATE 5 MG TAB PO SCH (08:30)
[2017-04-21] MEDS: CARVEDILOL 6.25 MG TAB PO SCH ×2 (08:30→19:58)
[2017-04-21] MEDS ORDERED: INSULIN GLARGINE SOLOSTAR 100 UNITS/ML 3 ML PEN SC SCH (09:00)
--- NOTE | 2017-04-21 10:59 | Medical Student: [facility] ---
Med Student Progress Note Date of Service Apr 21, 2017. Subjective Pt evaluation today including: conversation w/ patient, chart review Voiding: velazquez catheter in place 61 year old male to female transgender woman with a history of HIV, CKD, DM type II, HTN, presented in cardiac arrest (asystole) with an episode of atrial fibrillation during her stay. She had a permanent pacemaker inserted and has been doing well since then. She is still feeling some pain and soreness at the pacemaker sight. It does not radiate anywhere and is localized around the pacemaker. She denies any chest pain, shortness of breath, heart palpitations, or lightheadedness. She also complains of a significant increase in her cough. She has started to cough up sputum and the frequency of the cough has increased in the last 24 hours. She can't go more than 10 min without coughing. She had a slight fever last night. She has been able to move her bowels and urinate, however she has been having a lot of pain with urination and discomfort which she attributes to her Velazquez catheter. Wound care has been working with her on her dopamine infiltration wound. She has been having a significant amount of pain and some swelling in her left arm. She states that she also has some swelling in her right arm but it has reduced significantly. She is also hoping to be taken off the nasal cannula and see if she can take some Iron. Review of Systems Constitutional: + fever (low grade fever overnight), No chills, No sweats Respiratory: + cough, + sputum, + shortness of breath (only with cough) Cardiac: + edema (swelling in arms, left worse than right), No chest pain, No orthopnea, No palpitations Abdomen: No pain, No nausea, No vomiting, No diarrhea, No constipation Male : + dysuria (States pain with urination because of the catheter) Skin: No rash, No new/changing skin lesions Objective Vital Signs Date Time Temp Pulse Resp B/P (MAP) Pulse Ox O2 Delivery O2 Flow Rate FiO2 04/21/17 07:52 37.4 86 18 157/70 (99) 94 Room Air 04/21/17 07:15 Nasal Cannula 2.0 04/21/17 04:12 37.8 87 20 160/72 (101) 94 Nasal Cannula 2.0 04/21/17 04:00 Room Air 2.0 04/20/17 23:59 Room Air 2.0 04/20/17 23:40 37.6 84 20 156/70 (98) 95 Nasal Cannula 2.0 04/20/17 20:00 Room Air 2.0 04/20/17 19:53 37.4 97 20 163/75 (104) 92 Oxymask 04/20/17 15:52 37.2 92 18 187/74 (111) 92 Nasal Cannula 4.0 04/20/17 12:13 37.6 87 18 163/83 (109) 2 Room Air 2.0 04/20/17 12:00 Nasal Cannula 4.0 Physical Exam General Appearance: WD/WN, no apparent distress Eyes: bilateral eyes normal inspection Neck: no carotid bruits Respiratory/Chest: lungs clear, normal breath sounds Cardiovascular: regular rate, rhythm, no gallop, no JVD, no murmur Abdomen: normal bowel sounds, non tender, soft Neurologic/Psychiatric: alert, normal mood/affect, oriented x 3 Laboratory Results Last 24 Hours Test 04/20/17 11:07 04/20/17 13:58 04/20/17 16:15 04/20/17 16:16 Bedside Glucose 171 mg/dl 62 mg/dl 69 mg/dl Transferrin % Saturation % Test 04/20/17 17:05 04/20/17 20:09 04/21/17 06:08 04/21/17 07:17 Bedside Glucose 92 mg/dl 203 mg/dl 127 mg/dl White Blood Count 8.33 K/uL Red Blood Count 2.78 M/uL Hemoglobin 8.3 g/dL Hematocrit 25.9 % Mean Corpuscular Volume 93.2 fL Mean Corpuscular Hemoglobin 29.9 pg Mean Corpuscular Hemoglobin Concent 32.0 g/dl Platelet Count 179 K/uL Mean Platelet Volume 10.7 fL Neutrophils (%) (Auto) 71.2 % Lymphocytes (%) (Auto) 15.1 % Monocytes (%) (Auto) 10.7 % Eosinophils (%) (Auto) 2.4 % Basophils (%) (Auto) 0.1 % Neutrophils # (Auto) 5.93 K/uL Lymphocytes # (Auto) 1.26 K/uL Monocytes # (Auto) 0.89 K/uL Eosinophils # (Auto) 0.20 K/uL Basophils # (Auto) 0.01 K/uL RDW Standard Deviation 41.5 fL RDW Coefficient of Variation 12.3 % Immature Granulocyte % (Auto) 0.5 % Immature Granulocyte # (Auto) 0.04 K/uL Red Blood Cell Morphology Unremarkable Sodium Level 139 mmol/L Potassium Level 4.1 mmol/L Chloride Level 110 mmol/L Carbon Dioxide Level 21 mmol/L Anion Gap 8.0 mmol/L Blood Urea Nitrogen 41 mg/dl Creatinine 2.10 mg/dl Est Creatinine Clear Calc Drug Dose 35.1 ml/min Estimated GFR () 37.7 Estimated GFR (Non- 32.5 BUN/Creatinine Ratio 19.3 Random Glucose 93 mg/dl Calcium Level 8.0 mg/dl Phosphorus Level 2.2 mg/dl Magnesium Level 2.1 mg/dl Total Bilirubin 0.8 mg/dl Direct Bilirubin 0.2 mg/dl Aspartate Amino Transf (AST/SGOT) 27 U/L Alanine Aminotransferase (ALT/SGPT) 42 U/L Alkaline Phosphatase 70 U/L Total Protein 6.2 gm/dl Albumin 2.3 gm/dl Lipase 338 U/L Medications Medications Administered Medications (Trade) Dose Ordered Sig/Carlin Route Start Time Stop Time Status Last Admin Dose Admin Miscellaneous (Rapid Sequence Induction Bag) 1 ea STK-MED ONCE N/A 04/16/17 10:04 04/16/17 10:05 DC 04/16/17 11:40 1 EA Vecuronium [place]estead (Vecuronium [place]estead Inj) 10 mg NOW STAT IV 04/16/17 10:13 04/16/17 10:15 DC 04/16/17 10:15 10 MG Propofol (Diprivan Iv Emulsion 100ml Vial) 1 dose UD PRN IV 04/16/17 10:15 04/16/17 13:17 DC 04/16/17 11:37 1 DOSE Potassium Chloride 10 meq/ Prmx 100 ml @ 100 mls/hr NOW STAT IV 04/16/17 10:57 04/16/17 11:56 DC 04/16/17 11:38 100 MLS/HR Daptomycin 432 mg/ Sodium Chloride 58.64 ml @ 100 mls/hr NOW STAT IV 04/16/17 11:01 04/16/17 11:36 DC 04/16/17 11:38 100 MLS/HR Sodium Chloride 1,000 ml @ 0 mls/hr Q0M ONCE IV 04/16/17 11:03 04/16/17 11:06 DC 04/16/17 11:04 999 MLS/HR Pantoprazole Sodium 80 mg/ Dextrose 120 ml @ 480 mls/hr NOW ONCE IV 04/16/17 11:30 04/16/17 16:53 DC 04/16/17 11:36 480 MLS/HR Pantoprazole Sodium 40 mg/ Dextrose 100 ml @ 20 mls/hr Q5H IV 04/16/17 11:45 04/16/17 16:44 DC 04/16/17 11:36 20 MLS/HR Aztreonam 1000 mg/ Dextrose 110 ml @ 100 mls/hr Q8H IV 04/16/17 14:00 04/18/17 12:15 DC 04/18/17 06:14 100 MLS/HR Sodium Bicarbonate (Sodium Bicarbonate 8.4% Inj) 50 ml STK-MED ONCE IV 04/16/17 14:52 04/16/17 14:53 DC 04/16/17 14:52 50 ML Insulin Human Regular (novoLIN-R U-100 PER UNIT) 1 units STK-MED ONCE .ROUTE 04/16/17 15:02 04/16/17 15:03 DC 04/16/17 15:02 10 UNITS Insulin Human Regular 250 units/ Sodium Chloride 252.5 ml @ 0 mls/hr DAILY@1130 IV 04/16/17 16:00 04/17/17 05:02 DC 04/16/17 16:02 2.7 MLS/HR Dextrose (Dextrose 50% 50ML Syringe) 50 ml UD PRN IV 04/16/17 15:45 04/17/17 05:02 DC 04/17/17 03:25 25 ML Levofloxacin 500 mg/Prmx 100 ml @ 100 mls/hr Q2D@1800 IV 04/16/17 18:00 04/17/17 08:58 DC 04/16/17 17:28 100 MLS/HR Furosemide 80 mg/ Syringe 8 ml @ 4 mls/min TODAY@1630 ONCE IV 04/16/17 16:30 04/16/17 16:31 DC 04/16/17 17:07 4 MLS/MIN Albumin Human (Albumin 25%) 25 gm TODAY@1630 ONCE IV 04/16/17 16:30 04/16/17 16:31 DC 04/16/17 17:25 25 GM Norepinephrine Bitartrate 8 mg/ Dextrose 508 ml @ 0 mls/hr Q0M PRN IV 04/16/17 16:30 04/19/17 08:16 DC 04/16/17 17:07 2.7 MLS/HR Vancomycin HCl 1500 mg/Sodium Chloride 530 ml @ 200 mls/hr TODAY@1700 ONCE IV 04/16/17 17:00 04/16/17 19:38 DC 04/16/17 17:25 200 MLS/HR Pantoprazole Sodium 40 mg/ Syringe 10 ml @ 5 mls/min DAILY@11 IV 04/16/17 18:00 04/19/17 11:14 DC 04/18/17 11:27 5 MLS/MIN Sodium Bicarbonate (Sodium Bicarbonate 8.4% Inj) 100 ml NOW STAT IV 04/16/17 17:23 04/16/17 17:37 DC 04/16/17 17:53 100 ML Nitroglycerin (Nitroglycerin 2% Oint) 2 inch Q6H EXT 04/16/17 19:30 04/19/17 16:35 DC 04/19/17 07:24 2 INCH Propofol (Diprivan Iv Emulsion 100ml Vial) 1 dose UD IV 04/16/17 23:45 04/18/17 07:14 DC 04/17/17 00:06 1 DOSE Insulin Aspart (novoLOG ASPART) SLIDING SCALE If C... ACHS SC 04/17/17 06:45 05/17/17 06:44 04/21/17 08:20 8 UNITS Levofloxacin 750 mg/Prmx 100 ml @ 100 mls/hr Q2D@1800 IV 04/18/17 18:00 04/19/17 12:19 DC 04/18/17 18:05 100 MLS/HR Vancomycin HCl 1000 mg/Sodium Chloride 270 ml @ 125 mls/hr Q24H IV 04/17/17 10:00 04/19/17 12:16 DC 04/18/17 09:59 125 MLS/HR Magnesium Sulfate 1 gm/Prmx 100 ml @ 100 mls/hr ONE ONCE IV 04/17/17 10:30 04/17/17 11:29 DC 04/17/17 10:35 100 MLS/HR Calcium Gluconate 1000 mg/Sodium Chloride 60 ml @ 240 mls/hr ONE ONCE IV 04/17/17 10:30 04/17/17 10:44 DC 04/17/17 10:35 240 MLS/HR Heparin Sodium (Porcine) (Heparin Sq 5000 Unit/0.5ml) 5,000 unit Q8 SQ 04/17/17 14:00 04/18/17 11:02 DC 04/18/17 06:13 5,000 UNIT Hydralazine HCl (HydrALAZINE INJ) 20 mg Q4 PRN IV. 04/17/17 12:15 05/17/17 12:14 04/19/17 17:37 20 MG Amlodipine Besylate (Norvasc Tab) 10 mg QAM PO 04/18/17 09:00 05/18/17 08:59 04/21/17 08:30 10 MG Amlodipine Besylate (Norvasc Tab) 10 mg NOW ONCE PO 04/17/17 13:30 04/17/17 13:31 DC 04/17/17 13:45 10 MG Furosemide 40 mg/ Syringe 4 ml @ 4 mls/min ONE ONCE IV 04/17/17 13:45 04/17/17 13:46 DC 04/17/17 13:42 4 MLS/MIN Acetaminophen (Tylenol Tab) 650 mg STK-MED ONCE .ROUTE 04/17/17 19:42 04/17/17 19:43 DC 04/17/17 19:44 650 MG Insulin Glargine (Lantus Per Unit) 8 units ONE ONCE SQ 04/18/17 08:15 04/18/17 08:16 DC 04/18/17 08:28 8 UNITS Metoprolol Tartrate (Lopressor Iv) 5 mg NOW STAT IV 04/18/17 09:37 04/18/17 09:48 DC 04/18/17 09:57 5 MG Heparin Sodium/ Dextrose 500 ml @ 19 mls/hr Q24H PRN IV 04/18/17 10:45 04/19/17 04:00 DC 04/18/17 18:41 22 MLS/HR Lactated Ringer's 1,000 ml @ 15 mls/hr Q24H ONCE IV 04/19/17 06:00 04/20/17 05:59 DC 04/19/17 06:02 15 MLS/HR Miscellaneous (Stop Order) 1 ea TODAY@0400 ONCE N/A 04/19/17 04:00 04/19/17 04:01 DC 04/19/17 04:00 1 EA Vancomycin HCl 1000 mg/Sodium Chloride 270 ml @ 125 mls/hr TODAY@0700 ONCE IV 04/19/17 07:00 04/19/17 09:09 DC 04/19/17 07:57 125 MLS/HR Insulin Glargine (Lantus Solostar Pen) SEE PROTOCOL TEXT BID SC 04/18/17 21:00 05/18/17 20:59 Future hold 04/20/17 21:34 12 UNITS Heparin Sodium (Porcine) 6000 unit/Syringe 6 ml @ 10 mls/min NOW ONCE IV 04/18/17 19:00 04/18/17 19:01 DC 04/18/17 18:41 10 MLS/MIN Fentanyl Citrate (Fentanyl Inj) 100 mcg STK-MED ONCE .ROUTE 04/19/17 09:09 04/19/17 09:10 DC 04/19/17 09:09 75 MCG Midazolam HCl (Versed Inj) 5 mg STK-MED ONCE .ROUTE 04/19/17 09:09 04/19/17 09:10 DC 04/19/17 09:09 3 MG Oxycodone HCl (Roxicodone Immediate Rel Tab) 5 mg Q4RWA PRN PO 04/19/17 10:15 05/03/17 10:14 04/19/17 19:40 5 MG Heparin Sodium (Porcine) (Heparin Sq 5000 Unit/0.5ml) 5,000 unit Q8 SQ 04/19/17 14:00 05/19/17 13:59 04/21/17 05:45 5,000 UNIT Vancomycin HCl 500 mg/Sodium Chloride 260 ml @ 125 mls/hr TODAY@2100 IV 04/19/17 21:00 04/19/17 23:05 DC 04/19/17 21:38 125 MLS/HR Carvedilol (Coreg Tab) 6.25 mg BID PO 04/19/17 19:00 04/20/17 14:34 DC 04/20/17 08:23 6.25 MG Senna/Docusate Sodium (Senokot S Tab) 1 tab NOW ONCE PO 04/19/17 23:00 04/19/17 23:01 DC 04/19/17 23:13 1 TAB Magnesium Hydroxide (Milk Of Magnesia Susp) 30 ml NOW ONCE PO 04/20/17 11:30 04/20/17 12:09 DC 04/20/17 11:30 30 ML Levofloxacin 750 mg/Prmx 150 ml @ 100 mls/hr Q2D@1800 IV 04/20/17 18:00 04/22/17 19:29 04/20/17 17:08 100 MLS/HR Carvedilol (Coreg Tab) 9.375 mg BID PO 04/20/17 21:00 05/19/17 18:59 04/21/17 08:30 9.375 MG Insulin Glargine (Lantus Solostar Pen) 12 units QAM SC 04/21/17 09:00 04/21/17 09:01 DC 04/21/17 08:32 12 UNITS Assessment and Plan Assessment and Plan: 61 year old male to female transgender woman who presented to the ED in asystole and has since also had documented atrial fibrillation. She states that she felt some shortness of breath and bilateral leg swelling for 2 days prior to arrival. Past medical history includes HIV, HTN, Stroke, Diabetes Type II, G6PD, and Stage III CKD. Upon admission, she developed acute respiratory failure secondary to the cardiac arrest and required immediate intubation. She was extubated 2 days ago and has slowly improved with her breathing and is currently breathing on room air. In addition to her CKD, an acute renal injury, most likely due to hypoperfusion was also documented. Yesterday she had a permanent pacemaker successfully put in and is recovering well from that. She has had some tachycardia since then. Her blood pressure readings continue to be elevated. Her imaging and procedures during this hospital course also include: CT Scan showed: cardiomegaly, right pleural effusion, 2 nodules (one in the right upper lobe and the other in the right middle lobe). Abdominal x-ray: asymptomatic cholelithiasis EKG: most recent EKG shows NSR, RBBB, and Right axis deviation Echo: small pericardial effusion was documented. No structural wall or valvular defects. CXR: Showed evidence for either bilateral pulmonary edema or PNA. Hospital acquired Pneumonia Over night, the patient developed a slight fever and a worsening productive cough. After yesterday's CXR which showed fluid in the lungs, it is possible that this is a pneumonia. Due to her hospital stay and her history with HIV, she should be treated for a hospital aquired pneumonia. Even though she is already on Levofloxacin, antibiotic coverage should be broadened. Pharmacy and ID was consulted and the following recommendations should be followed: -Restart patient on IV Vancomycin -Patient is allergic to Penicillins, so instead of IV Zosyn, start her on cefepime. -Extend her Levofloxacin coverage for 1 week. -Obtain sputum culture to confirm and assess for cause of pneumonia Hypertension and Tachycardia In the last 24 hours, her tachycardia has largely resolved. She still has some elevated blood pressures, although systolic is slightly lower than earlier in the week. We should continue with current therapy and reassess in about 1-2 days if blood pressure has not decreased. -Continue Amlodipine for hypertension -Continue current dose of Carvedilol Atrial Fibrillation and Asystole Well managed by the successful insertion of a pacemaker with no recurrence of episodes.She is having pain and soreness around her insertion site. -Give patient Tylenol or oxycodone as needed -Follow up in 1 week. Upper Extremity swelling Her right arm, where the dopamine infiltration wound is located, is swollen and tender most likely secondary to the wound. Her left arm is not as swollen as the right arm and has decreased in swelling. Possible causes of the right arm swelling can include thrombosis or secondary to renal failure. Thrombosis must be ruled out, especially given that she has having pain around the insertion site which is under her right clavicle, mid clavicular. -Upper extremity venous Doppler to rule out thrombosis. Anemia She continues to have low hgb counts, although it is the same as yesterday. TIBC , and transferrin were low, indicating a possible anemia of chronic disease. It may be secondary to her CKD. Furthermore, with her long standing history of anemia, it is possible that she has an underlying genetic cause for anemia. Her baseline Hgb levels in the past have been 10 g/dL or greater, thus this drop in Hgb is likely caused by recent surgery and hospitalization. At this time EPO is not recommended. - Start Iron tablet PO Acute Renal Injury w/ CKD Stage III Her BUN and Cr continue to improve back to baseline. -Continue to encourage fluid intake and monitor Cr, BUN, and Na. Chronic HIV Infection ID was consulted and recommended to continue to hold HAART therapy until kidney function resumes back to baseline. Diabetes Type II Her recent glucose levels have been high, although she has had some fluctuations throughout the last 24 hours.This may be attributed to stress of the recent surgery and hospitalization. -Continue to monitor her glucose levels 4x daily -Continue Basal and Bolus Insulin Pulmonary Nodules found on CT Recommend follow up and repeat CT in 3-6 months. Encourage patient to consider smoking cessation DVT Prophylaxis -Continue SQ Heparin injections Continued [facility] stay due to: abnormal vital signs, multiple IV medications needed, other (Monitor vitals, possible PNA)
[2017-04-21] MEDS: ACETAMINOPHEN 325 MG TAB PO PRN ×2 (11:10→19:56)
[2017-04-21] MEDS ORDERED: CEFEPIME IV 2000 MG in DEXTROSE 5% 100ML IV ONE (11:15)
[2017-04-21] MEDS ORDERED: CEFEPIME CONSULT ACTIVE PRN ×2 (11:15)
[2017-04-21] MEDS ORDERED: FERROUS SULFATE 325 MG TAB PO ONE (11:15)
[2017-04-21] MEDS ORDERED: LEVOFLOXACIN CONSULT ACTIVE PRN (11:15)
[2017-04-21] MEDS ORDERED: VANCOMYCIN CONSULT ACTIVE PRN (11:15)
[2017-04-21 11:39] VITALS: BP 151/67; PULSE 77; TEMP 37.4; O2SAT 92
--- NOTE | 2017-04-21 12:05 | Pharmacy Progress Note ---
Glycemic Control Progress Note Date of Service Apr 21, 2017. Scope Glycemic Pharmacist consulted for glycemic control to write orders per [facility] inpatient glycemic control protocol. Objective Accuchecks BSG (last 24hrs): Test 04/20/17 16:15 04/20/17 16:16 04/20/17 17:05 04/20/17 20:09 Bedside Glucose 62 mg/dl (70-99) 69 mg/dl (70-99) 92 mg/dl (70-99) 203 mg/dl (70-99) Test 04/21/17 06:08 04/21/17 07:17 04/21/17 11:19 Random Glucose 93 mg/dl (70-99) Bedside Glucose 127 mg/dl (70-99) 101 mg/dl (70-99) HbA1c: Test 04/18/17 03:45 Hemoglobin A1c 6.0 % (4.5-5.6) H Recent Pertinent Medications Outpatient Anti-diabetic Regimen: * Humulin R sliding scale Risk Factors for Insulin Resistance: * Diet: type 2 diabetic diet Outpatient Anti-Diabetic Meds see above Assessment & Plan ASSESSMENT: * ADA & AACE recommend a goal blood sugar range 140-180 mg/dl for the majority of critically ill & non-critically ill patients. However, more stringent targets may be selected in individual cases. Will utilize more stringent goal of 110-140mg/dl based on patient age & comorbidities. Additionally, tighter glycemic control is warranted to facilitate wound healing. * Mr Dash is a 61 y/o M with a PMH of CDK stage III, h/o CVA, and HIV admitted with multiple codes and asystole. He was initially admitted to the ICU and started on an insulin infusion. Since then, the patient has been started on basal bolus insulin with a Lantus sliding scale. * Patient's fasting blood sugar this morning was 127 mg/dL with Lantus 18 units yesterday. In order to have patient start on once daily Lantus dosing, Lantus 12 units was ordered this morning and then 15 units tomorrow as the patient's true needs is likely between 12-18 units of Lantus per day. * Novolog parameters appear to be overaggressive as patient was overcorrected at lunch yesterday and then today at breakfast. Believe total daily dose to be around 30-35 units/day. PLAN FOR INPATIENT GLYCEMIC CONTROL: * Lantus 12 units SQ x 1 today then 15 units SQ qAM * Novolog correctional insulin ACHS * Correction Factor: LOOSENED to 45 mg/dL/unit * Carbohydrate Ratio: LOOSENED to 1 unit per 15 grams of carbohydrates consumed OUTPATIENT Recommendations * Patient's HbA1C is very well controlled. As long as patient is not having hypoglycemia it is reasonable to continue current regimen. Thank you.
--- NOTE | 2017-04-21 13:42 | DIAGNOSTIC IMAGING REPORT ---
LEFT UPPER EXTREMITY VENOUS DOPPLER HISTORY: Left arm swelling. COMPARISON STUDY: None. FINDINGS: The left internal jugular vein is patent. There is normal flow within the left subclavian vein. There is normal flow and compressibility within the left axillary, basilic, brachial, radial, ulnar, and visualized cephalic veins. IMPRESSION: No DVT within the left upper extremity. Electronically signed by: Virgilio Corbett M.D. 04/21/2017 1:41 PM Dictated Date/Time: 04/21/2017 1:40 PM
[2017-04-21] MEDS ORDERED: VANCOMYCIN INJ 1,000 MG in SODIUM CHLORIDE 0.9% 250ML 250 ML IV SCH (14:00)
--- NOTE | 2017-04-21 14:53 | Progress Note ---
Subjective Date of Service: Apr 21, 2017. Subjective Pt evaluation today including: conversation w/ patient, physical exam, chart review, lab review Asked to re evaluate patient for cough and pna. cxr 04/19 with improving chf, cxr 04/20 with edema vs pna. some increased cough with sputum production x 2-3 days. intermittent fever as well. tmax 37.8. was previously on zosyn for ? aspiration event at time of cardiac arrest, broadened to vanco, levaquin and cefepime, tolerating well. feels well on my exam O2 sats improving, now on RA. no cp, no wheeze, no hemoptysis. no abd pain, no n/v/d. denies fever currently. blood cultures from 04/16 negative to date. wbc nml. sputum specimen collected prior to my exam. all remaining ros reviewed and are negative. Problem List Medical Problems: (1) Acute renal failure Status: Acute (2) Bradycardia Status: Acute (3) Cardiopulmonary arrest Status: Acute (4) GI bleed Status: Acute (5) Heart block Status: Acute (6) Renal failure Status: Acute Objective Vital Signs Date Time Temp Pulse Resp B/P (MAP) Pulse Ox O2 Delivery O2 Flow Rate FiO2 04/21/17 14:15 Room Air 04/21/17 11:39 37.4 77 18 151/67 (95) 92 Room Air 04/21/17 07:52 37.4 86 18 157/70 (99) 94 Room Air 04/21/17 07:15 Nasal Cannula 2.0 04/21/17 04:12 37.8 87 20 160/72 (101) 94 Nasal Cannula 2.0 04/21/17 04:00 Room Air 2.0 04/20/17 23:59 Room Air 2.0 04/20/17 23:40 37.6 84 20 156/70 (98) 95 Nasal Cannula 2.0 04/20/17 20:00 Room Air 2.0 04/20/17 19:53 37.4 97 20 163/75 (104) 92 Oxymask 04/20/17 15:52 37.2 92 18 187/74 (111) 92 Nasal Cannula 4.0 Physical Exam General Appearance: no apparent distress Eyes: normal inspection, EOMI Neck: supple Respiratory/Chest: lungs clear, normal breath sounds, no respiratory distress Cardiovascular: regular rate, rhythm, no edema Abdomen: non tender, soft Extremities: non-tender, normal inspection, no pedal edema Neurologic/Psychiatric: alert, oriented x 3 Skin: normal color, warm/dry, no rash Laboratory Results Item Value Date Time Blood Culture - Preliminary Resulted 04/16/17 1539 Blood NO GROWTH TO DATE. Blood Culture - Preliminary Resulted 04/16/17 1350 Blood NO GROWTH TO DATE. Last 24 Hours Test 04/20/17 16:16 04/20/17 17:05 04/20/17 20:09 04/21/17 06:08 Bedside Glucose 69 mg/dl 92 mg/dl 203 mg/dl White Blood Count 8.33 K/uL Red Blood Count 2.78 M/uL Hemoglobin 8.3 g/dL Hematocrit 25.9 % Mean Corpuscular Volume 93.2 fL Mean Corpuscular Hemoglobin 29.9 pg Mean Corpuscular Hemoglobin Concent 32.0 g/dl Platelet Count 179 K/uL Mean Platelet Volume 10.7 fL Neutrophils (%) (Auto) 71.2 % Lymphocytes (%) (Auto) 15.1 % Monocytes (%) (Auto) 10.7 % Eosinophils (%) (Auto) 2.4 % Basophils (%) (Auto) 0.1 % Neutrophils # (Auto) 5.93 K/uL Lymphocytes # (Auto) 1.26 K/uL Monocytes # (Auto) 0.89 K/uL Eosinophils # (Auto) 0.20 K/uL Basophils # (Auto) 0.01 K/uL RDW Standard Deviation 41.5 fL RDW Coefficient of Variation 12.3 % Immature Granulocyte % (Auto) 0.5 % Immature Granulocyte # (Auto) 0.04 K/uL Red Blood Cell Morphology Unremarkable Sodium Level 139 mmol/L Potassium Level 4.1 mmol/L Chloride Level 110 mmol/L Carbon Dioxide Level 21 mmol/L Anion Gap 8.0 mmol/L Blood Urea Nitrogen 41 mg/dl Creatinine 2.10 mg/dl Est Creatinine Clear Calc Drug Dose 35.1 ml/min Estimated GFR () 37.7 Estimated GFR (Non- 32.5 BUN/Creatinine Ratio 19.3 Random Glucose 93 mg/dl Calcium Level 8.0 mg/dl Phosphorus Level 2.2 mg/dl Magnesium Level 2.1 mg/dl Total Bilirubin 0.8 mg/dl Direct Bilirubin 0.2 mg/dl Aspartate Amino Transf (AST/SGOT) 27 U/L Alanine Aminotransferase (ALT/SGPT) 42 U/L Alkaline Phosphatase 70 U/L Total Protein 6.2 gm/dl Albumin 2.3 gm/dl Lipase 338 U/L Test 04/21/17 07:17 04/21/17 11:19 04/21/17 13:04 Bedside Glucose 127 mg/dl 101 mg/dl Assessment and Plan (1) Pneumonia Assessment & Plan: agree with abx pending sputum culture results. blood cultures remain negative. (2) HIV (human immunodeficiency virus infection) Continued [facility] stay due to: abnormal vital signs, multiple IV medications needed, other (Monitor vitals, possible PNA)
[2017-04-21 15:30] VITALS: BP 152/64; PULSE 80; TEMP 37.1; O2SAT 90
--- NOTE | 2017-04-21 16:31 | Pharmacy Progress Note ---
Pharmacy Antibiotic Consult Date of Service: Apr 21, 2017. Pharmacy Dosing Scope Pharmacy is consulted to initiate vancomycin, cefepime, and levofloxacin IV dosing therapy, order appropriate labs and adjust drug dose/frequency. Subjective The patient is a 61 year old male admitted on Apr 16, 2017 at 11:53. History of DM2, HIV pos.,S/P cardiac arrest. Received vancomycin 04/16- 04/19/17. Now concern for possible HCAP. Objective Height (Feet): 5 Height (Inches): 10.00 Weight (Kilograms): 69.000 Lab Results (24hrs): Test 04/21/17 06:08 04/21/17 07:17 04/21/17 11:19 04/21/17 15:13 White Blood Count 8.33 K/uL (4.8-10.8) Red Blood Count 2.78 M/uL (4.7-6.1) Hemoglobin 8.3 g/dL (14.0-18.0) Hematocrit 25.9 % (42-52) Mean Corpuscular Volume 93.2 fL (80-100) Mean Corpuscular Hemoglobin 29.9 pg (25-34) Mean Corpuscular Hemoglobin Concent 32.0 g/dl (32-36) Platelet Count 179 K/uL (130-400) Mean Platelet Volume 10.7 fL (7.4-10.4) Neutrophils (%) (Auto) 71.2 % Lymphocytes (%) (Auto) 15.1 % Monocytes (%) (Auto) 10.7 % Eosinophils (%) (Auto) 2.4 % Basophils (%) (Auto) 0.1 % Neutrophils # (Auto) 5.93 K/uL (1.4-6.5) Lymphocytes # (Auto) 1.26 K/uL (1.2-3.4) Monocytes # (Auto) 0.89 K/uL (0.11-0.59) Eosinophils # (Auto) 0.20 K/uL (0-0.5) Basophils # (Auto) 0.01 K/uL (0-0.2) RDW Standard Deviation 41.5 fL (36.4-46.3) RDW Coefficient of Variation 12.3 % (11.5-14.5) Immature Granulocyte % (Auto) 0.5 % Immature Granulocyte # (Auto) 0.04 K/uL (0.00-0.02) Red Blood Cell Morphology Unremarkable Sodium Level 139 mmol/L (136-145) Potassium Level 4.1 mmol/L (3.5-5.1) Chloride Level 110 mmol/L (98-107) Carbon Dioxide Level 21 mmol/L (21-32) Anion Gap 8.0 mmol/L (3-11) Blood Urea Nitrogen 41 mg/dl (7-18) Creatinine 2.10 mg/dl (0.60-1.40) Est Creatinine Clear Calc Drug Dose 35.1 ml/min Estimated GFR () 37.7 Estimated GFR (Non- 32.5 BUN/Creatinine Ratio 19.3 (10-20) Random Glucose 93 mg/dl (70-99) Calcium Level 8.0 mg/dl (8.5-10.1) Phosphorus Level 2.2 mg/dl (2.5-4.9) Magnesium Level 2.1 mg/dl (1.8-2.4) Total Bilirubin 0.8 mg/dl (0.2-1) Direct Bilirubin 0.2 mg/dl (0-0.2) Aspartate Amino Transf (AST/SGOT) 27 U/L (15-37) Alanine Aminotransferase (ALT/SGPT) 42 U/L (12-78) Alkaline Phosphatase 70 U/L (45-117) Total Protein 6.2 gm/dl (6.4-8.2) Albumin 2.3 gm/dl (3.4-5.0) Lipase 338 U/L (73-393) Bedside Glucose 127 mg/dl (70-99) 101 mg/dl (70-99) Micro Results: 04/16 blood x2 NGTD 04/16 nasal swab neg. MRSA 04/21 sputum pending Recent Pertinent Medications Item Value Date Time Vancomycin HCl 270 ml @ 125 mls/hr 04/22/17 1600 1000 mg/Sodium Q24H/IV Chloride Cefepime HCl 2000 112.5 ml @ 225 mls/hr 04/22/17 0000 mg/Dextrose Q12@0000,1200/IV Vancomycin HCl 270 ml @ 125 mls/hr 04/21/17 1400 1000 mg/Sodium Q24H/IV 04/21/17 1553 Chloride Cefepime HCl 2000 112.5 ml @ 225 mls/hr 9/13/17 1115 mg/Dextrose NOW ONCE/IV 04/21/17 1244 Levofloxacin 750 150 ml @ 100 mls/hr 04/20/17 1800 mg/Prmx TODAY@1800/IV Levofloxacin 750 150 ml @ 100 mls/hr 04/20/17 1800 mg/Prmx Q2D@1800/IV 04/20/17 1708 Assessment & Plan Loading dose: vancomycin 1000 mg IV X 1 dose. Due to patient's renal impairment and previous vanco therapy, will check random vanco level and give additional loading dose if needed; then: vancomycin 1000 mg IV every 24 hours. Goal trough level estimate: between 15-20 mcg/mL. Trough will be ordered for: 3rd or 4th dose. Cefepime 2 Gm IV x1, then 2 Gm q12h for CrCl 30-60 ml/min. Levofloxacin 750 mg IV x1, then 750 mg q48h for CrCl 20-49 ml/min. Pharmacy will continue to follow and will adjust dose/frequency as necessary. Thank you
[2017-04-21] MEDS: OXYCODONE HCL IR 5 MG TAB (IMMEDIATE RELEASE) PO PRN ×2 (16:46→21:23)
[2017-04-21] MEDS: FERROUS SULFATE 325 MG TAB PO SCH (16:47)
[2017-04-21 19:53] VITALS: BP 164/74; PULSE 84; TEMP 37.2; O2SAT 90
[2017-04-22] VITALS (7 sets, daily range): BP systolic 147–166; BP diastolic 67–76; PULSE 75–87; TEMP 36.8–37.5; O2SAT 91–96
[2017-04-22] MEDS: CEFEPIME IV 2000 MG in DEXTROSE 5% 100ML IV SCH ×3 (00:04→23:42)
--- NOTE | 2017-04-22 00:42 | Hospitalist Progress Note ---
Hospitalist Progress Note Date of Service Apr 21, 2017. Subjective Pt evaluation today including: conversation w/ patient Pt requesting Mathis to come out, is having LUE swelling and left shoulder pain near site of pacer. She was coughing up mucus all last night and had difficulty sleeping due to cough Also had some low grade temps all night. All Other Systems: Reviewed and Negative Objective Vital Signs Date Time Temp Pulse Resp B/P (MAP) Pulse Ox O2 Delivery O2 Flow Rate FiO2 04/22/17 00:02 37.2 77 20 147/67 (93) 91 Room Air 04/21/17 20:00 Room Air 04/21/17 19:53 37.2 84 20 164/74 (104) 90 Room Air 04/21/17 16:00 Room Air 04/21/17 15:30 37.1 80 22 152/64 (93) 90 Room Air 04/21/17 14:15 Room Air 04/21/17 11:39 37.4 77 18 151/67 (95) 92 Room Air 04/21/17 07:52 37.4 86 18 157/70 (99) 94 Room Air 04/21/17 07:15 Nasal Cannula 2.0 04/21/17 04:12 37.8 87 20 160/72 (101) 94 Nasal Cannula 2.0 04/21/17 04:00 Room Air 2.0 Physical Exam General Appearance: WD/WN, no apparent distress Eyes: normal inspection, sclerae normal ENT: hearing grossly normal Neck: trachea midline Respiratory/Chest: no respiratory distress, no accessory muscle use, + decreased breath sounds (with tubular breath sounds at left middle lung field and right lower lung field) Cardiovascular: regular rate, rhythm, no edema, no murmur Abdomen: normal bowel sounds, non tender, soft Extremities: no pedal edema, no calf tenderness, + pertinent finding (right forearm with edema and kerlix wrap in place, LUE with trace edema, no tenderness , Pacer site with steri strips in place and no erythema) Neurologic/Psychiatric: alert, normal mood/affect Skin: normal color, warm/dry, no rash Laboratory Results Last 24 Hours Test 04/21/17 06:08 04/21/17 07:17 04/21/17 11:19 04/21/17 15:13 White Blood Count 8.33 K/uL Red Blood Count 2.78 M/uL Hemoglobin 8.3 g/dL Hematocrit 25.9 % Mean Corpuscular Volume 93.2 fL Mean Corpuscular Hemoglobin 29.9 pg Mean Corpuscular Hemoglobin Concent 32.0 g/dl Platelet Count 179 K/uL Mean Platelet Volume 10.7 fL Neutrophils (%) (Auto) 71.2 % Lymphocytes (%) (Auto) 15.1 % Monocytes (%) (Auto) 10.7 % Eosinophils (%) (Auto) 2.4 % Basophils (%) (Auto) 0.1 % Neutrophils # (Auto) 5.93 K/uL Lymphocytes # (Auto) 1.26 K/uL Monocytes # (Auto) 0.89 K/uL Eosinophils # (Auto) 0.20 K/uL Basophils # (Auto) 0.01 K/uL RDW Standard Deviation 41.5 fL RDW Coefficient of Variation 12.3 % Immature Granulocyte % (Auto) 0.5 % Immature Granulocyte # (Auto) 0.04 K/uL Red Blood Cell Morphology Unremarkable Sodium Level 139 mmol/L Potassium Level 4.1 mmol/L Chloride Level 110 mmol/L Carbon Dioxide Level 21 mmol/L Anion Gap 8.0 mmol/L Blood Urea Nitrogen 41 mg/dl Creatinine 2.10 mg/dl Est Creatinine Clear Calc Drug Dose 35.1 ml/min Estimated GFR () 37.7 Estimated GFR (Non- 32.5 BUN/Creatinine Ratio 19.3 Random Glucose 93 mg/dl Calcium Level 8.0 mg/dl Phosphorus Level 2.2 mg/dl Magnesium Level 2.1 mg/dl Total Bilirubin 0.8 mg/dl Direct Bilirubin 0.2 mg/dl Aspartate Amino Transf (AST/SGOT) 27 U/L Alanine Aminotransferase (ALT/SGPT) 42 U/L Alkaline Phosphatase 70 U/L Total Protein 6.2 gm/dl Albumin 2.3 gm/dl Lipase 338 U/L Bedside Glucose 127 mg/dl 101 mg/dl Random Vancomycin Level 10.8 mcg/ml Test 04/21/17 16:32 04/21/17 20:30 Bedside Glucose 156 mg/dl 107 mg/dl Assessment and Plan 61 y/o transgender female with recurrent asystole, known to have HIV, HTN, who was admitted to the ICU s/p asystolic and cardiac arrest with multiple rounds of compressions.Had Arctic cooling protocol in ICU afterwards with transcutaneous pacing wire placed. The patient has had a similar episode in 2016. Back then it was blamed on cardizem and the medication was stopped with resolution of symptoms. She was not given a permanent pacemaker at that time. - Cardiac arrest due to sinus arrest, sinus node dysfunction, PAF in ICU. Mildly elevated troponin from CPR, HTN-uncontrolled but improved after starting Coreg. Pacemaker is functioning properly. There is a possibility of pulmonary edema on his chest x-ray versus multifocal pneumonia status post resuscitation. His acute kidney injury prevents adequate diuresis at this time. Had permanent pacemaker on Thursday 04/19 echo with preserved EF of 65-70%, no WMA -Continue telemetry monitoring -heparin gtt for atrial fibrillation stopped as this is likely an isolated event due to acute events-if has increased burden of atrial fibrillation as per his pacemaker interrogations in the future, can consider restarting anticoagulation at that time -was on metoprolol at home, now started on Coreg by Cardio-titrate up the dose for uncontrolled hypertension, continue amlodipine - Acute hypoxemic respiratory failure/arrest secondary to cardiac arrest. Initially suspected PNA on CT Chest. Repeat CXR 04/20 with persistent by basilar opacities which could be pulmonary edema or pneumonia. Now with worsening cough and productive sputum , low grade temps. 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 Iron studies consistent with Anemia of Chronic disease, likely of renal disease. B12 and folate normal. -follow CBC LUE pain and edema, recent pacer placement--> checked Doppler with was negative for DVT - HIV:Appreciate ID consultation and recommendations Checking CD4 count and HIV RNA quant-still pending -Holding all HAART therapy for LEEROY until renal function improves Lipase increased-no abd pain, US of abdomen shows cholelithiasis but nothing abnl on pancreas although limited views. Lipase trending downward and now normal. Prediabetes with hyperglycemia- HgbA1C 6.0% on labs c/w prediabetes -continue basal bolus insulin, glucose checks -Appreciate Pharmacy management Pulm nodules-seen on CT Chest -NEEDS f/u CT Chest in 3-6 months - Hx of transgender with hormone use-stable -restart Estradiol on dc full code insulin drip to control sugar 140-180 heparin SC 5000 DVT prophylaxis changed to heparin drip given A fib hold antiretrovirals until awake and lipase normalized. COnsider ID consult tomorrow FU lipase Will get US abdomen appreciate GI input. appreciate cardiology help
[2017-04-22] MEDS: HEPARIN SOD 5000 UNIT/0.5 ML CARP SQ SCH ×3 (05:55→21:48)
[2017-04-22] MEDS: AMLODIPINE BESYLATE 5 MG TAB PO SCH (08:03)
[2017-04-22] MEDS: CARVEDILOL 6.25 MG TAB PO SCH (08:04)
[2017-04-22] MEDS: FERROUS SULFATE 325 MG TAB PO SCH ×2 (08:04→18:59)
--- NOTE | 2017-04-22 08:07 | DIAGNOSTIC IMAGING REPORT ---
CHEST ONE VIEW PORTABLE HISTORY: Short of breath. Pulmonary edema. COMPARISON: Chest 04/20/2017. FINDINGS: No change in the interstitial and vascular thickening with patchy bilateral airspace opacities consistent with pulmonary edema. Small bilateral pleural effusions and mild cardiomegaly persist. Left-sided dual-chamber pacemaker. No pneumothorax. IMPRESSION: Pulmonary edema and small bilateral pleural effusions which are not significantly changed. Electronically signed by: Virgilio Corbett M.D. 04/22/2017 8:06 AM Dictated Date/Time: 04/22/2017 8:05 AM
[2017-04-22] MEDS: INSULIN ASPART 100 UNITS/ML 3 ML PEN SC SCH ×4 (08:10→20:52)
[2017-04-22] MEDS: INSULIN GLARGINE SOLOSTAR 100 UNITS/ML 3 ML PEN SC SCH (08:13)
[2017-04-22 08:37] LABS: BASO % 0.2 %; BASO ABS # 0.01 K/uL (0-0.2); EOS % 3.2 %; HEMATOCRIT 26.3 % (42-52); IG% 0.5 %; LYMPH % 12.8 %; MEAN CELL VOLUME 92.9 fL (80-100); MEAN CORPUSCULAR HEMOGLOBIN 30.4 pg (25-34); MEAN CORPUSCULAR HGB CONC 32.7 g/dl (32-36); MONO % 13.1 %; NEUT % 70.2 %; PLATELET COUNT 181 K/uL (130-400); RED BLOOD COUNT 2.83 M/uL (4.7-6.1); WHITE BLOOD COUNT 6.27 K/uL (4.8-10.8)
[2017-04-22 09:06] LABS: COMPLETE YES
[2017-04-22 09:10] LABS: BUN/CREATININE RATIO 17.7 (10-20); CALCIUM 8.2 mg/dl (8.5-10.1); CREATININE 1.9 mg/dl (0.60-1.40); MAGNESIUM 2.2 mg/dl (1.8-2.4); POTASSIUM 4.5 mmol/L (3.5-5.1)
--- NOTE | 2017-04-22 11:26 | Medical Student: [facility] ---
Med Student Progress Note Date of Service Apr 22, 2017. Subjective Pt evaluation today including: conversation w/ patient, chart review, lab review Voiding: no voiding problems 61 year old male to female transgender woman with a history of HIV, CKD, DM type II, HTN, presented in cardiac arrest (asystole) with an episode of atrial fibrillation during her stay. She had a permanent pacemaker inserted and has been doing well since then. She denies any chest pain, shortness of breath, heart palpitations, or lightheadedness. She states that her cough has gotten better since yesterday but she is still coughing up a lot of sputum. Her pacemaker site is still sore but less than before. She does not think she has had any fevers overnight. Of note, last night she went for a short lap around the floor and her oxygen levels dropped so she was put back on oxygen. She is able to urinate normally and has been moving her bowels. Wound care has been working with her on her dopamine infiltration wound and she is still complaining of significant pain and swelling in her right arm where the wound is. The pain is localized to the wound and the area around it. Swelling is in the forearm and in the upper arm. Her left arm swelling has gone down. She feels some chest tightness & shortness of breath with the SQ Heparin Injection Review of Systems Constitutional: No fever, No chills Respiratory: + cough, + sputum, No shortness of breath Cardiac: No chest pain, No orthopnea Abdomen: No pain, No nausea, No vomiting, No diarrhea, No constipation Objective Vital Signs Date Time Temp Pulse Resp B/P (MAP) Pulse Ox O2 Delivery O2 Flow Rate FiO2 04/22/17 08:00 Room Air 04/22/17 07:43 36.8 75 18 166/76 (106) 96 2.0 04/22/17 04:02 37.1 87 18 161/74 (103) 91 2.0 04/22/17 04:00 Room Air 04/22/17 00:02 37.2 77 20 147/67 (93) 91 Room Air 04/22/17 00:00 Room Air 04/21/17 20:00 Room Air 04/21/17 19:53 37.2 84 20 164/74 (104) 90 Room Air 04/21/17 16:00 Room Air 9/13/17 15:30 37.1 80 22 152/64 (93) 90 Room Air 04/21/17 14:15 Room Air 04/21/17 11:39 37.4 77 18 151/67 (95) 92 Room Air Physical Exam General Appearance: WD/WN, no apparent distress Eyes: bilateral eyes normal inspection Neck: no JVD Respiratory/Chest: lungs clear, normal breath sounds, no respiratory distress Cardiovascular: regular rate, rhythm, no edema, no gallop, no JVD Abdomen: normal bowel sounds, non tender, soft Neurologic/Psychiatric: alert, normal mood/affect, oriented x 3 Laboratory Results Last 24 Hours Test 04/21/17 15:13 04/21/17 16:32 04/21/17 20:30 04/22/17 08:09 Random Vancomycin Level 10.8 mcg/ml Bedside Glucose 156 mg/dl 107 mg/dl White Blood Count 6.27 K/uL Red Blood Count 2.83 M/uL Hemoglobin 8.6 g/dL Hematocrit 26.3 % Mean Corpuscular Volume 92.9 fL Mean Corpuscular Hemoglobin 30.4 pg Mean Corpuscular Hemoglobin Concent 32.7 g/dl Platelet Count 181 K/uL Mean Platelet Volume 10.0 fL Neutrophils (%) (Auto) 70.2 % Lymphocytes (%) (Auto) 12.8 % Monocytes (%) (Auto) 13.1 % Eosinophils (%) (Auto) 3.2 % Basophils (%) (Auto) 0.2 % Neutrophils # (Auto) 4.41 K/uL Lymphocytes # (Auto) 0.80 K/uL Monocytes # (Auto) 0.82 K/uL Eosinophils # (Auto) 0.20 K/uL Basophils # (Auto) 0.01 K/uL RDW Standard Deviation 41.9 fL RDW Coefficient of Variation 12.4 % Immature Granulocyte % (Auto) 0.5 % Immature Granulocyte # (Auto) 0.03 K/uL Red Blood Cell Morphology Unremarkable Sodium Level 135 mmol/L Potassium Level 4.5 mmol/L Chloride Level 107 mmol/L Carbon Dioxide Level 21 mmol/L Anion Gap 7.0 mmol/L Blood Urea Nitrogen 34 mg/dl Creatinine 1.90 mg/dl Est Creatinine Clear Calc Drug Dose 38.4 ml/min Estimated GFR () 42.5 Estimated GFR (Non- 36.7 BUN/Creatinine Ratio 17.7 Random Glucose 165 mg/dl Calcium Level 8.2 mg/dl Magnesium Level 2.2 mg/dl Total Bilirubin 0.6 mg/dl Direct Bilirubin 0.2 mg/dl Aspartate Amino Transf (AST/SGOT) 23 U/L Alanine Aminotransferase (ALT/SGPT) 36 U/L Alkaline Phosphatase 64 U/L Total Protein 6.5 gm/dl Albumin 2.2 gm/dl Medications Medications (Trade) Dose Ordered Sig/Carlin Route Start Time Stop Time Status Last Admin Dose Admin Ferrous Sulfate (Feosol Tab) 325 mg BIDM PO 04/21/17 16:45 05/21/17 16:44 04/22/17 08:04 325 MG Insulin Glargine (Lantus Solostar Pen) 15 units QAM SC 04/22/17 09:00 05/22/17 08:59 04/22/17 08:13 15 UNITS Cefepime HCl 2000 mg/Dextrose 112.5 ml @ 225 mls/hr Q12@0000,1200 IV 04/22/17 00:00 04/29/17 11:59 04/22/17 12:09 225 MLS/HR Assessment and Plan Assessment and Plan: 61 year old male to female transgender woman who presented to the ED in asystole and has since also had documented atrial fibrillation. She states that she felt some shortness of breath and bilateral leg swelling for 2 days prior to arrival. Past medical history includes HIV, HTN, Stroke, Diabetes Type II, G6PD, and Stage III CKD. Upon admission, she developed acute respiratory failure secondary to the cardiac arrest and required immediate intubation. She was extubated 2 days ago and has slowly improved with her breathing and is currently breathing on room air. In addition to her CKD, an acute renal injury, most likely due to hypoperfusion was also documented. Yesterday she had a permanent pacemaker successfully put in and is recovering well from that. She has had some tachycardia since then. Her blood pressure readings continue to be elevated. Her imaging and procedures during this hospital course also include: CT Scan showed: cardiomegaly, right pleural effusion, 2 nodules (one in the right upper lobe and the other in the right middle lobe). Abdominal x-ray: asymptomatic cholelithiasis EKG: most recent EKG shows NSR, RBBB, and Right axis deviation Echo: small pericardial effusion was documented. No structural wall or valvular defects. CXR: Showed evidence for either bilateral pulmonary edema or PNA. Hospital acquired Pneumonia Although still there, her symptoms seem to be improving. Today's CXR showed possible pulmonary edema and small bilateral pleural effusions that are the same as before. Blood cultures came back negative and preliminary sputum cultures show only moderate amounts of normal shavonne. If they come back negative , consult with ID to consider altering her antibiotic regimen. Due to her prophylactic use of vancomycin and levofloxacin, it is possible that these may be falsely sterile sputum culture. Alternative etiologies would include pulmonary edema secondary to pulmonary vascular congestion or renal failure. Although her kidney function seems to have returned to baseline today, she seems to be diuresing on her own. Wait 2-3 days before considering diuretic use. -Continue current antibiotic regimen of IV vancomycin, Cefepime, and Levofloxacin. -Continue with 2.0L of O2 due to SOB with ambulation Hypertension and Tachycardia Her tachycardic symptoms have largely resolved but her blood pressure is still elevated. -Increase dose of Carvedilol to 12.5mg BID PO -Continue Amlodipine at current dose Asystole Well managed by the successful insertion of a pacemaker with no recurrence of episodes. She has less soreness around her insertion site today than yesterday. Her arrhythmias and tachycardia have been very stable for the past 48 hours. She has been in NSR without any pacing. -Consult cardiology about transfer from telemetry to medical floor. -Give patient Tylenol or oxycodone as needed for soreness -Follow up w/ cardiology in 1 week. Upper Extremity swelling Her right arm, where the dopamine infiltration wound is located, is swollen and tender most likely secondary to the wound. There is significant swelling of the forearm and part of the arm. Left arm swelling has decreased considerably and upper extremity Doppler ultrasound showed no DVT in the left upper extremity. -Elevate right arm -Continue with wound care -Tylenol for pain and inflammation Anemia She continues to have low hgb counts, although it is the same as yesterday. - Continue with 1 TAB Fe PO BID Acute Renal Injury w/ CKD Stage III Her BUN and Cr show improvement back to baseline levels. No Electrolyte abnormalities seen. -Continue to hold of on diuretics and consult ID about restarting HIV medications tomorrow -Continue to encourage fluid intake and monitor Cr, BUN, and Na. Chronic HIV Infection Consult ID about restarting HAART therapy tomorrow since kidney function was at baseline today. Diabetes Type II Her recent glucose levels were better today. Considering that her HbA1c was 6.0 % she falls in the "prediabetic category" -consider altering home medications to a sulfonylurea (glipizide) at low dose. -Continue to monitor her glucose levels 4x daily -Continue Basal and Bolus Insulin Glaucoma Patient states that she has glaucoma and uses eye drops at home -start Latanoprost ophthalmic solution Hormone therapy She can restart her estradiol upon discharge Pulmonary Nodules found on CT Recommend follow up and repeat CT in 3-6 months. Encourage patient to consider smoking cessation DVT Prophylaxis -Continue SQ Heparin injections Continued [facility] stay due to: abnormal vital signs, multiple IV medications needed, other (Monitor vitals, possible PNA)
--- NOTE | 2017-04-22 13:36 | Progress Note ---
Subjective Date of Service: Apr 22, 2017. Subjective Pt evaluation today including: conversation w/ patient, physical exam, lab review sputum culture pending, tolerating abx. states she is feeling better today, less cough, no cp, no f/c eating well. creat improving. some pain lue, unchanged. no overnight events. all remaining ros reviewed and are negative. Problem List Medical Problems: (1) Acute renal failure Status: Acute (2) Bradycardia Status: Acute (3) Cardiopulmonary arrest Status: Acute (4) GI bleed Status: Acute (5) Heart block Status: Acute (6) Renal failure Status: Acute Objective Vital Signs Date Time Temp Pulse Resp B/P (MAP) Pulse Ox O2 Delivery O2 Flow Rate FiO2 04/22/17 12:00 Nasal Cannula 04/22/17 11:32 36.8 83 18 151/70 (97) 93 2.0 04/22/17 08:00 Room Air 04/22/17 07:43 36.8 75 18 166/76 (106) 96 2.0 04/22/17 04:02 37.1 87 18 161/74 (103) 91 2.0 04/22/17 04:00 Room Air 04/22/17 00:02 37.2 77 20 147/67 (93) 91 Room Air 04/22/17 00:00 Room Air 04/21/17 20:00 Room Air 04/21/17 19:53 37.2 84 20 164/74 (104) 90 Room Air 04/21/17 16:00 Room Air 04/21/17 15:30 37.1 80 22 152/64 (93) 90 Room Air 04/21/17 14:15 Room Air Physical Exam General Appearance: WD/WN, no apparent distress Eyes: normal inspection, EOMI Neck: supple Respiratory/Chest: lungs clear, normal breath sounds, no respiratory distress Cardiovascular: regular rate, rhythm, no edema Abdomen: non tender, soft Extremities: non-tender, normal inspection, no pedal edema Neurologic/Psychiatric: alert, oriented x 3 Skin: normal color, warm/dry, no rash Laboratory Results Item Value Date Time Gram Stain - Final Resulted 04/21/17 1420 Sputum Expectorated Sputum Blood Culture - Final Complete 04/16/17 1539 Blood NO GROWTH Blood Culture - Final Complete 04/16/17 1350 Blood NO GROWTH Last 24 Hours Test 04/21/17 15:13 04/21/17 16:32 04/21/17 20:30 04/22/17 08:09 Random Vancomycin Level 10.8 mcg/ml Bedside Glucose 156 mg/dl 107 mg/dl White Blood Count 6.27 K/uL Red Blood Count 2.83 M/uL Hemoglobin 8.6 g/dL Hematocrit 26.3 % Mean Corpuscular Volume 92.9 fL Mean Corpuscular Hemoglobin 30.4 pg Mean Corpuscular Hemoglobin Concent 32.7 g/dl Platelet Count 181 K/uL Mean Platelet Volume 10.0 fL Neutrophils (%) (Auto) 70.2 % Lymphocytes (%) (Auto) 12.8 % Monocytes (%) (Auto) 13.1 % Eosinophils (%) (Auto) 3.2 % Basophils (%) (Auto) 0.2 % Neutrophils # (Auto) 4.41 K/uL Lymphocytes # (Auto) 0.80 K/uL Monocytes # (Auto) 0.82 K/uL Eosinophils # (Auto) 0.20 K/uL Basophils # (Auto) 0.01 K/uL RDW Standard Deviation 41.9 fL RDW Coefficient of Variation 12.4 % Immature Granulocyte % (Auto) 0.5 % Immature Granulocyte # (Auto) 0.03 K/uL Red Blood Cell Morphology Unremarkable Sodium Level 135 mmol/L Potassium Level 4.5 mmol/L Chloride Level 107 mmol/L Carbon Dioxide Level 21 mmol/L Anion Gap 7.0 mmol/L Blood Urea Nitrogen 34 mg/dl Creatinine 1.90 mg/dl Est Creatinine Clear Calc Drug Dose 38.4 ml/min Estimated GFR () 42.5 Estimated GFR (Non- 36.7 BUN/Creatinine Ratio 17.7 Random Glucose 165 mg/dl Calcium Level 8.2 mg/dl Magnesium Level 2.2 mg/dl Total Bilirubin 0.6 mg/dl Direct Bilirubin 0.2 mg/dl Aspartate Amino Transf (AST/SGOT) 23 U/L Alanine Aminotransferase (ALT/SGPT) 36 U/L Alkaline Phosphatase 64 U/L Total Protein 6.5 gm/dl Albumin 2.2 gm/dl Test 04/22/17 11:19 Bedside Glucose 155 mg/dl Assessment and Plan (1) Pneumonia Assessment & Plan: agree with abx pending sputum culture results. blood cultures remain negative. (2) HIV (human immunodeficiency virus infection) Continued [facility] stay due to: abnormal vital signs, multiple IV medications needed, other (Monitor vitals, possible PNA)
[2017-04-22] MEDS ORDERED: VANCOMYCIN INJ 1,000 MG in SODIUM CHLORIDE 0.9% 250ML 250 ML IV SCH (16:00)
[2017-04-22] MEDS: LEVOFLOXACIN / D5W 750 MG in PREMIXED IN D5W 150 ML IV SCH (18:59)
[2017-04-22] MEDS: LATANOPROST 0.005% OP SOLN 2.5 ML BTL OPB SCH (20:51)
[2017-04-22] MEDS: CARVEDILOL 12.5 MG TAB PO SCH (20:52)
[2017-04-23] VITALS (8 sets, daily range): BP systolic 147–165; BP diastolic 66–75; PULSE 74–81; TEMP 36.8–37.6; O2SAT 91–97
--- NOTE | 2017-04-23 00:34 | Hospitalist Progress Note ---
Hospitalist Progress Note Date of Service Apr 22, 2017. Subjective Pt evaluation today including: conversation w/ patient having a lot of pain in right arm at site of dopamine infiltration soft tissue injury, cough is much improved today, afebrile, no events on tele, not pacing All Other Systems: Reviewed and Negative Objective Vital Signs Date Time Temp Pulse Resp B/P (MAP) Pulse Ox O2 Delivery O2 Flow Rate FiO2 04/22/17 15:44 37.5 84 161/72 (101) 92 Nasal Cannula 2.0 04/22/17 12:00 Nasal Cannula 04/22/17 11:32 36.8 83 18 151/70 (97) 93 2.0 04/22/17 08:00 Room Air 04/22/17 07:43 36.8 75 18 166/76 (106) 96 2.0 04/22/17 04:02 37.1 87 18 161/74 (103) 91 2.0 04/22/17 04:00 Room Air 04/22/17 00:02 37.2 77 20 147/67 (93) 91 Room Air 04/22/17 00:00 Room Air 04/21/17 20:00 Room Air 04/21/17 19:53 37.2 84 20 164/74 (104) 90 Room Air Physical Exam General Appearance: WD/WN, no apparent distress Eyes: normal inspection, sclerae normal ENT: hearing grossly normal Neck: trachea midline Respiratory/Chest: no respiratory distress, no accessory muscle use, + decreased breath sounds (at left base) Cardiovascular: regular rate, rhythm, no edema, no murmur Abdomen: normal bowel sounds, non tender, soft Extremities: no pedal edema, no calf tenderness, + pertinent finding (right forearm with edema and 5x7cm area of burn with debrided skin very tender to the touch) Neurologic/Psychiatric: alert, normal mood/affect Skin: normal color, warm/dry, no rash Laboratory Results Last 24 Hours Test 04/21/17 20:30 04/22/17 08:09 04/22/17 11:19 Bedside Glucose 107 mg/dl 155 mg/dl White Blood Count 6.27 K/uL Red Blood Count 2.83 M/uL Hemoglobin 8.6 g/dL Hematocrit 26.3 % Mean Corpuscular Volume 92.9 fL Mean Corpuscular Hemoglobin 30.4 pg Mean Corpuscular Hemoglobin Concent 32.7 g/dl Platelet Count 181 K/uL Mean Platelet Volume 10.0 fL Neutrophils (%) (Auto) 70.2 % Lymphocytes (%) (Auto) 12.8 % Monocytes (%) (Auto) 13.1 % Eosinophils (%) (Auto) 3.2 % Basophils (%) (Auto) 0.2 % Neutrophils # (Auto) 4.41 K/uL Lymphocytes # (Auto) 0.80 K/uL Monocytes # (Auto) 0.82 K/uL Eosinophils # (Auto) 0.20 K/uL Basophils # (Auto) 0.01 K/uL RDW Standard Deviation 41.9 fL RDW Coefficient of Variation 12.4 % Immature Granulocyte % (Auto) 0.5 % Immature Granulocyte # (Auto) 0.03 K/uL Red Blood Cell Morphology Unremarkable Sodium Level 135 mmol/L Potassium Level 4.5 mmol/L Chloride Level 107 mmol/L Carbon Dioxide Level 21 mmol/L Anion Gap 7.0 mmol/L Blood Urea Nitrogen 34 mg/dl Creatinine 1.90 mg/dl Est Creatinine Clear Calc Drug Dose 38.4 ml/min Estimated GFR () 42.5 Estimated GFR (Non- 36.7 BUN/Creatinine Ratio 17.7 Random Glucose 165 mg/dl Calcium Level 8.2 mg/dl Magnesium Level 2.2 mg/dl Total Bilirubin 0.6 mg/dl Direct Bilirubin 0.2 mg/dl Aspartate Amino Transf (AST/SGOT) 23 U/L Alanine Aminotransferase (ALT/SGPT) 36 U/L Alkaline Phosphatase 64 U/L Total Protein 6.5 gm/dl Albumin 2.2 gm/dl Assessment and Plan 61 y/o transgender female with recurrent asystole, known to have HIV, HTN, who was admitted to the ICU s/p asystolic and cardiac arrest with multiple rounds of compressions.Had Arctic cooling protocol in ICU afterwards with transcutaneous pacing wire placed. The patient has had a similar episode in 2016. Back then it was blamed on cardizem and the medication was stopped with resolution of symptoms. She was not given a permanent pacemaker at that time. - Cardiac arrest due to sinus arrest, sinus node dysfunction, PAF in ICU. Mildly elevated troponin from CPR, HTN-remains uncontrolled but improved after starting Coreg. Pacemaker is functioning properly. There is a possibility of pulmonary edema on his chest x-ray versus multifocal pneumonia status post resuscitation-more likely to be PNA. Had permanent pacemaker on Thursday 04/19 echo with preserved EF of 65-70%, no WMA -Continue telemetry monitoring -heparin gtt for atrial fibrillation stopped as this is likely an isolated event due to acute events-if has increased burden of atrial fibrillation as per his pacemaker interrogations in the future, can consider restarting anticoagulation at that time -was on metoprolol at home, now started on Coreg by Cardio-titrate up the dose for uncontrolled hypertension today to 9.5mg bid, continue amlodipine - Acute hypoxemic respiratory failure/arrest secondary to cardiac arrest. Initially suspected PNA on CT Chest. Repeat CXR 04/20 with persistent by basilar opacities which could be pulmonary edema or pneumonia. Then 04/21 with worsening cough and productive sputum , low grade temps. Discussed with ID--> need to treat for HCAP to treat for GNR PNA and MRSA PNA extubated 04/17, but remains on oxygen-wean O2 as tolerated -continue on Vanco and Cefepime (due to PCN allergy, cannot use Zosyn, low risk of reaction to Cefepime with allergy to PCN), continue Levaquin, all for 7 days-today day#2 - LEEROY on CKD stage III: Cr peaked at 3.6 and is continuing to improve today again to 1.9 which is at his baseline likely ATN from cardiac arrest and poor kidney perfusion adequate UO, non-oliguric K stable Continue to follow PRP - Anemia: H/H stable, no signs of bleeding any further after 20-30 mL from OGT in ER, hold on transfusion. Iron studies consistent with Anemia of Chronic disease, likely of renal disease. B12 and folate normal. -follow CBC LUE pain and edema, recent pacer placement--> checked Doppler with was negative for DVT--> pain resolved Right forearm dopamine extravasation soft tissue injury with necrosis and tissue debrided by Wound MD -continue Xeroform dressing changes daily wrapped in kerlix -continue pain control -elevate limb - HIV:Appreciate ID consultation and recommendations Checking CD4 count and HIV RNA quant-still pending -Holding all HAART therapy for LEEROY until renal function improves-consider restarting tomorrow Lipase increased-no abd pain, US of abdomen shows cholelithiasis but nothing abnl on pancreas although limited views. Lipase trending downward and now normal. Diabetes mellitus II with hyperglycemia- HgbA1C 6.0% here very well controlled -continue basal bolus insulin, glucose checks -Appreciate Pharmacy management -is only on SSI as outpt--> consider just glipizide or Januvia po instead Pulm nodules-seen on CT Chest -NEEDS f/u CT Chest in 3-6 months - Hx of transgender with hormone use-stable -restart Estradiol on dc full code
[2017-04-23 00:39] LABS: LSP % CELLS ANALYZED CD4 21 % (30-61); LSP ABSOLUTE CT CD4 217 cells/uL (490-1740); LSP LYMPHOCYTES ABSOLUTE 1010 cells/uL (850-3900)
[2017-04-23] MEDS: HEPARIN SOD 5000 UNIT/0.5 ML CARP SQ SCH ×3 (06:09→20:31)
[2017-04-23] MEDS: FERROUS SULFATE 325 MG TAB PO SCH ×2 (08:10→17:05)
[2017-04-23] MEDS: AMLODIPINE BESYLATE 5 MG TAB PO SCH (08:10)
[2017-04-23] MEDS: CARVEDILOL 12.5 MG TAB PO SCH ×2 (08:11→20:20)
[2017-04-23] MEDS: INSULIN GLARGINE SOLOSTAR 100 UNITS/ML 3 ML PEN SC SCH (08:19)
[2017-04-23] MEDS: INSULIN ASPART 100 UNITS/ML 3 ML PEN SC SCH ×4 (08:20→20:27)
[2017-04-23 08:29] LABS: BASO % 0.3 %; BASO ABS # 0.02 K/uL (0-0.2); COMPLETE YES; EOS % 3.5 %; HEMATOCRIT 27.1 % (42-52); IG% 0.5 %; LYMPH % 15.6 %; LYMPH ABS # 0.94 K/uL (1.2-3.4); MEAN CELL VOLUME 91.9 fL (80-100); MEAN CORPUSCULAR HEMOGLOBIN 30.8 pg (25-34); MEAN CORPUSCULAR HGB CONC 33.6 g/dl (32-36); MEAN PLATELET VOLUME 9.8 fL (7.4-10.4); MONO % 11.9 %; NEUT % 68.2 %; PLATELET COUNT 211 K/uL (130-400); RED BLOOD COUNT 2.95 M/uL (4.7-6.1); WHITE BLOOD COUNT 6.04 K/uL (4.8-10.8)
[2017-04-23 08:59] LABS: BUN/CREATININE RATIO 17.4 (10-20); CALCIUM 8.6 mg/dl (8.5-10.1); MAGNESIUM 2.1 mg/dl (1.8-2.4); POTASSIUM 4.4 mmol/L (3.5-5.1)
--- NOTE | 2017-04-23 10:26 | Progress Note ---
Subjective Date of Service: Apr 23, 2017. Subjective Pt evaluation today including: conversation w/ patient, physical exam, chart review, lab review pt feeling much better, cough almost completely resolved. no f/c. no cp, no sob. tolerating abx. no abd pain, no n/v/d. Blood cultures negative and final. sputum culture with nml shavonne. final. all remaining ros reviewed and are negative. Problem List Medical Problems: (1) Acute renal failure Status: Acute (2) Bradycardia Status: Acute (3) Cardiopulmonary arrest Status: Acute (4) GI bleed Status: Acute (5) Heart block Status: Acute (6) Renal failure Status: Acute Objective Vital Signs Date Time Temp Pulse Resp B/P (MAP) Pulse Ox O2 Delivery O2 Flow Rate FiO2 04/23/17 08:13 36.8 75 16 165/75 (105) 97 Nasal Cannula 2.0 04/23/17 08:07 74 162/66 (98) 04/23/17 08:00 Nasal Cannula 2.0 04/23/17 04:26 37.3 75 19 147/66 (93) 97 Nasal Cannula 2.0 04/23/17 04:00 Nasal Cannula 2.0 04/23/17 00:00 Nasal Cannula 2.0 04/22/17 23:57 37.2 81 18 151/72 (98) 96 Nasal Cannula 2.0 04/22/17 20:00 Nasal Cannula 2.0 04/22/17 19:11 37.1 84 20 162/70 (100) 94 Nasal Cannula 2.0 04/22/17 15:44 37.5 84 161/72 (101) 92 Nasal Cannula 2.0 04/22/17 12:00 Nasal Cannula 04/22/17 11:32 36.8 83 18 151/70 (97) 93 2.0 Physical Exam General Appearance: WD/WN, no apparent distress Eyes: normal inspection, EOMI Neck: supple Respiratory/Chest: lungs clear, normal breath sounds, no respiratory distress Cardiovascular: regular rate, rhythm, no edema Abdomen: non tender, soft Extremities: non-tender, normal inspection, no pedal edema Neurologic/Psychiatric: alert, oriented x 3 Skin: normal color, warm/dry, no rash Comments: min edema rue, dressing c/d/i Laboratory Results Item Value Date Time Gram Stain - Final Resulted 04/21/17 1420 Sputum Expectorated Sputum Blood Culture - Final Complete 04/16/17 1350 Blood NO GROWTH Blood Culture - Final Complete 04/16/17 1539 Blood NO GROWTH Gram Stain - Final Complete 04/21/17 1420 Sputum Expectorated Sputum Last 24 Hours Test 04/22/17 11:19 04/22/17 16:39 04/22/17 20:19 04/23/17 06:43 Bedside Glucose 155 mg/dl 105 mg/dl 136 mg/dl 89 mg/dl Test 04/23/17 07:58 White Blood Count 6.04 K/uL Red Blood Count 2.95 M/uL Hemoglobin 9.1 g/dL Hematocrit 27.1 % Mean Corpuscular Volume 91.9 fL Mean Corpuscular Hemoglobin 30.8 pg Mean Corpuscular Hemoglobin Concent 33.6 g/dl Platelet Count 211 K/uL Mean Platelet Volume 9.8 fL Neutrophils (%) (Auto) 68.2 % Lymphocytes (%) (Auto) 15.6 % Monocytes (%) (Auto) 11.9 % Eosinophils (%) (Auto) 3.5 % Basophils (%) (Auto) 0.3 % Neutrophils # (Auto) 4.12 K/uL Lymphocytes # (Auto) 0.94 K/uL Monocytes # (Auto) 0.72 K/uL Eosinophils # (Auto) 0.21 K/uL Basophils # (Auto) 0.02 K/uL RDW Standard Deviation 41.2 fL RDW Coefficient of Variation 12.4 % Immature Granulocyte % (Auto) 0.5 % Immature Granulocyte # (Auto) 0.03 K/uL Sodium Level 138 mmol/L Potassium Level 4.4 mmol/L Chloride Level 110 mmol/L Carbon Dioxide Level 22 mmol/L Anion Gap 6.0 mmol/L Blood Urea Nitrogen 35 mg/dl Creatinine 2.00 mg/dl Est Creatinine Clear Calc Drug Dose 36.1 ml/min Estimated GFR () 40.0 Estimated GFR (Non- 34.5 BUN/Creatinine Ratio 17.4 Random Glucose 101 mg/dl Calcium Level 8.6 mg/dl Magnesium Level 2.1 mg/dl Assessment and Plan (1) Pneumonia Assessment & Plan: will change to levaquin po, would give 2 more days. then d/ c. ok for d/c when otherwise stable. (2) HIV (human immunodeficiency virus infection) Assessment & Plan: creat improving, to re start HAART. pt with undetectable viral load, cd4 low at 217 but likely due to acute illness. will need continue follow up with HIV provider post d/c. Continued [facility] stay due to: abnormal vital signs, multiple IV medications needed, other (Monitor vitals, possible PNA)
[2017-04-23] MEDS: CEFEPIME IV 2000 MG in DEXTROSE 5% 100ML IV SCH (11:24)
--- NOTE | 2017-04-23 14:42 | Medical Student: [facility] ---
Med Student Progress Note Date of Service Apr 23, 2017. Subjective Pt evaluation today including: conversation w/ patient, chart review Voiding: no voiding problems 61 year old male to female transgender woman with a history of HIV, CKD, DM type II, HTN, presented in cardiac arrest (asystole) with an episode of atrial fibrillation during her stay. She is doing well on her pacemaker and has no concerns. She states that the soreness has decreased and she does not feel much pain at her insertion site. She has no chest pain, shortness of breath, heart palpitations, or lightheadedness. She states that her cough has gotten better much better since yesterday and now she is only having episodes of productive cough occasionally. She has not attempted to try to walk around since yesterday but is able to ambulate without shortness of breath when going to the bathroom. She is urinating and moving her bowls without any concerns. She denies any abdominal pain or bloating. Today her dopamine infiltration wound on her right arm is much less painful than yesterday. She did have to take some Tylenol earlier in the morning. She still has inflammation in her forearm and upper arm but feels that it is getting better. Review of Systems Constitutional: No fever, No chills Respiratory: No cough, No sputum, No shortness of breath Cardiac: No chest pain, No orthopnea, No edema Abdomen: No pain, No nausea, No vomiting, No diarrhea, No constipation Male : No dysuria, No urinary frequency Objective Vital Signs Date Time Temp Pulse Resp B/P (MAP) Pulse Ox O2 Delivery O2 Flow Rate FiO2 04/23/17 12:00 Room Air 04/23/17 11:46 37.1 74 20 161/72 (101) 95 Room Air 04/23/17 10:36 95 Room Air 04/23/17 08:13 36.8 75 16 165/75 (105) 97 Nasal Cannula 2.0 04/23/17 08:07 74 162/66 (98) 04/23/17 08:00 Nasal Cannula 2.0 04/23/17 04:26 37.3 75 19 147/66 (93) 97 Nasal Cannula 2.0 04/23/17 04:00 Nasal Cannula 2.0 04/23/17 00:00 Nasal Cannula 2.0 04/22/17 23:57 37.2 81 18 151/72 (98) 96 Nasal Cannula 2.0 04/22/17 20:00 Nasal Cannula 2.0 04/22/17 19:11 37.1 84 20 162/70 (100) 94 Nasal Cannula 2.0 04/22/17 15:44 37.5 84 161/72 (101) 92 Nasal Cannula 2.0 Physical Exam General Appearance: WD/WN, no apparent distress Eyes: bilateral eyes normal inspection Respiratory/Chest: lungs clear, normal breath sounds, no respiratory distress Cardiovascular: regular rate, rhythm, no edema, no gallop, no JVD, no murmur Abdomen: normal bowel sounds, soft, + tenderness (Right and Left lower quadrant tenderness with palpation) Neurologic/Psychiatric: alert, normal mood/affect, oriented x 3 Laboratory Results Last 24 Hours Test 04/22/17 16:39 04/22/17 20:19 04/23/17 06:43 04/23/17 07:58 Bedside Glucose 105 mg/dl 136 mg/dl 89 mg/dl White Blood Count 6.04 K/uL Red Blood Count 2.95 M/uL Hemoglobin 9.1 g/dL Hematocrit 27.1 % Mean Corpuscular Volume 91.9 fL Mean Corpuscular Hemoglobin 30.8 pg Mean Corpuscular Hemoglobin Concent 33.6 g/dl Platelet Count 211 K/uL Mean Platelet Volume 9.8 fL Neutrophils (%) (Auto) 68.2 % Lymphocytes (%) (Auto) 15.6 % Monocytes (%) (Auto) 11.9 % Eosinophils (%) (Auto) 3.5 % Basophils (%) (Auto) 0.3 % Neutrophils # (Auto) 4.12 K/uL Lymphocytes # (Auto) 0.94 K/uL Monocytes # (Auto) 0.72 K/uL Eosinophils # (Auto) 0.21 K/uL Basophils # (Auto) 0.02 K/uL RDW Standard Deviation 41.2 fL RDW Coefficient of Variation 12.4 % Immature Granulocyte % (Auto) 0.5 % Immature Granulocyte # (Auto) 0.03 K/uL Sodium Level 138 mmol/L Potassium Level 4.4 mmol/L Chloride Level 110 mmol/L Carbon Dioxide Level 22 mmol/L Anion Gap 6.0 mmol/L Blood Urea Nitrogen 35 mg/dl Creatinine 2.00 mg/dl Est Creatinine Clear Calc Drug Dose 36.1 ml/min Estimated GFR () 40.0 Estimated GFR (Non- 34.5 BUN/Creatinine Ratio 17.4 Random Glucose 101 mg/dl Calcium Level 8.6 mg/dl Magnesium Level 2.1 mg/dl Test 04/23/17 11:03 Bedside Glucose 149 mg/dl Medications Medications Administered Medications (Trade) Dose Ordered Sig/Carlin Route Start Time Stop Time Status Last Admin Dose Admin Miscellaneous (Rapid Sequence Induction Bag) 1 ea STK-MED ONCE N/A 04/16/17 10:04 04/16/17 10:05 DC 04/16/17 11:40 1 EA Vecuronium [place] (Vecuronium [place] Inj) 10 mg NOW STAT IV 04/16/17 10:13 04/16/17 10:15 DC 04/16/17 10:15 10 MG Propofol (Diprivan Iv Emulsion 100ml Vial) 1 dose UD PRN IV 04/16/17 10:15 04/16/17 13:17 DC 04/16/17 11:37 1 DOSE Potassium Chloride 10 meq/ Prmx 100 ml @ 100 mls/hr NOW STAT IV 04/16/17 10:57 04/16/17 11:56 DC 04/16/17 11:38 100 MLS/HR Daptomycin 432 mg/ Sodium Chloride 58.64 ml @ 100 mls/hr NOW STAT IV 04/16/17 11:01 04/16/17 11:36 DC 04/16/17 11:38 100 MLS/HR Sodium Chloride 1,000 ml @ 0 mls/hr Q0M ONCE IV 04/16/17 11:03 04/16/17 11:06 DC 04/16/17 11:04 999 MLS/HR Pantoprazole Sodium 80 mg/ Dextrose 120 ml @ 480 mls/hr NOW ONCE IV 04/16/17 11:30 04/16/17 16:53 DC 04/16/17 11:36 480 MLS/HR Pantoprazole Sodium 40 mg/ Dextrose 100 ml @ 20 mls/hr Q5H IV 04/16/17 11:45 04/16/17 16:44 DC 04/16/17 11:36 20 MLS/HR Aztreonam 1000 mg/ Dextrose 110 ml @ 100 mls/hr Q8H IV 04/16/17 14:00 04/18/17 12:15 DC 04/18/17 06:14 100 MLS/HR Sodium Bicarbonate (Sodium Bicarbonate 8.4% Inj) 50 ml STK-MED ONCE IV 04/16/17 14:52 04/16/17 14:53 DC 04/16/17 14:52 50 ML Insulin Human Regular (novoLIN-R U-100 PER UNIT) 1 units STK-MED ONCE .ROUTE 04/16/17 15:02 04/16/17 15:03 DC 04/16/17 15:02 10 UNITS Insulin Human Regular 250 units/ Sodium Chloride 252.5 ml @ 0 mls/hr DAILY@1130 IV 04/16/17 16:00 04/17/17 05:02 DC 04/16/17 16:02 2.7 MLS/HR Dextrose (Dextrose 50% 50ML Syringe) 50 ml UD PRN IV 04/16/17 15:45 04/17/17 05:02 DC 04/17/17 03:25 25 ML Levofloxacin 500 mg/Prmx 100 ml @ 100 mls/hr Q2D@1800 IV 04/16/17 18:00 04/17/17 08:58 DC 04/16/17 17:28 100 MLS/HR Furosemide 80 mg/ Syringe 8 ml @ 4 mls/min TODAY@1630 ONCE IV 04/16/17 16:30 04/16/17 16:31 DC 04/16/17 17:07 4 MLS/MIN Albumin Human (Albumin 25%) 25 gm TODAY@1630 ONCE IV 04/16/17 16:30 04/16/17 16:31 DC 04/16/17 17:25 25 GM Norepinephrine Bitartrate 8 mg/ Dextrose 508 ml @ 0 mls/hr Q0M PRN IV 04/16/17 16:30 04/19/17 08:16 DC 04/16/17 17:07 2.7 MLS/HR Vancomycin HCl 1500 mg/Sodium Chloride 530 ml @ 200 mls/hr TODAY@1700 ONCE IV 04/16/17 17:00 04/16/17 19:38 DC 04/16/17 17:25 200 MLS/HR Pantoprazole Sodium 40 mg/ Syringe 10 ml @ 5 mls/min DAILY@11 IV 04/16/17 18:00 04/19/17 11:14 DC 04/18/17 11:27 5 MLS/MIN Sodium Bicarbonate (Sodium Bicarbonate 8.4% Inj) 100 ml NOW STAT IV 04/16/17 17:23 04/16/17 17:37 DC 04/16/17 17:53 100 ML Nitroglycerin (Nitroglycerin 2% Oint) 2 inch Q6H EXT 04/16/17 19:30 04/19/17 16:35 DC 04/19/17 07:24 2 INCH Propofol (Diprivan Iv Emulsion 100ml Vial) 1 dose UD IV 04/16/17 23:45 04/18/17 07:14 DC 04/17/17 00:06 1 DOSE Insulin Aspart (novoLOG ASPART) SLIDING SCALE If C... ACHS SC 04/17/17 06:45 05/17/17 06:44 04/23/17 12:28 4 UNITS Levofloxacin 750 mg/Prmx 100 ml @ 100 mls/hr Q2D@1800 IV 04/18/17 18:00 04/19/17 12:19 DC 04/18/17 18:05 100 MLS/HR Vancomycin HCl 1000 mg/Sodium Chloride 270 ml @ 125 mls/hr Q24H IV 04/17/17 10:00 04/19/17 12:16 DC 04/18/17 09:59 125 MLS/HR Magnesium Sulfate 1 gm/Prmx 100 ml @ 100 mls/hr ONE ONCE IV 04/17/17 10:30 04/17/17 11:29 DC 04/17/17 10:35 100 MLS/HR Calcium Gluconate 1000 mg/Sodium Chloride 60 ml @ 240 mls/hr ONE ONCE IV 04/17/17 10:30 04/17/17 10:44 DC 04/17/17 10:35 240 MLS/HR Heparin Sodium (Porcine) (Heparin Sq 5000 Unit/0.5ml) 5,000 unit Q8 SQ 04/17/17 14:00 04/18/17 11:02 DC 04/18/17 06:13 5,000 UNIT Hydralazine HCl (HydrALAZINE INJ) 20 mg Q4 PRN IV. 04/17/17 12:15 05/17/17 12:14 04/19/17 17:37 20 MG Amlodipine Besylate (Norvasc Tab) 10 mg QAM PO 04/18/17 09:00 05/18/17 08:59 04/23/17 08:10 10 MG Amlodipine Besylate (Norvasc Tab) 10 mg NOW ONCE PO 04/17/17 13:30 04/17/17 13:31 DC 04/17/17 13:45 10 MG Furosemide 40 mg/ Syringe 4 ml @ 4 mls/min ONE ONCE IV 04/17/17 13:45 04/17/17 13:46 DC 04/17/17 13:42 4 MLS/MIN Acetaminophen (Tylenol Tab) 650 mg STK-MED ONCE .ROUTE 04/17/17 19:42 04/17/17 19:43 DC 04/17/17 19:44 650 MG Acetaminophen (Tylenol Tab) 650 mg Q6H PRN PO 04/17/17 20:00 05/17/17 19:59 04/21/17 19:56 650 MG Insulin Glargine (Lantus Per Unit) 8 units ONE ONCE SQ 04/18/17 08:15 04/18/17 08:16 DC 04/18/17 08:28 8 UNITS Metoprolol Tartrate (Lopressor Iv) 5 mg NOW STAT IV 04/18/17 09:37 04/18/17 09:48 DC 04/18/17 09:57 5 MG Heparin Sodium/ Dextrose 500 ml @ 19 mls/hr Q24H PRN IV 04/18/17 10:45 04/19/17 04:00 DC 04/18/17 18:41 22 MLS/HR Lactated Ringer's 1,000 ml @ 15 mls/hr Q24H ONCE IV 04/19/17 06:00 04/20/17 05:59 DC 04/19/17 06:02 15 MLS/HR Miscellaneous (Stop Order) 1 ea TODAY@0400 ONCE N/A 04/19/17 04:00 04/19/17 04:01 DC 04/19/17 04:00 1 EA Vancomycin HCl 1000 mg/Sodium Chloride 270 ml @ 125 mls/hr TODAY@0700 ONCE IV 04/19/17 07:00 04/19/17 09:09 DC 04/19/17 07:57 125 MLS/HR Insulin Glargine (Lantus Solostar Pen) SEE PROTOCOL TEXT BID SC 04/18/17 21:00 04/21/17 11:41 DC 04/20/17 21:34 12 UNITS Heparin Sodium (Porcine) 6000 unit/Syringe 6 ml @ 10 mls/min NOW ONCE IV 04/18/17 19:00 04/18/17 19:01 DC 04/18/17 18:41 10 MLS/MIN Fentanyl Citrate (Fentanyl Inj) 100 mcg STK-MED ONCE .ROUTE 04/19/17 09:09 04/19/17 09:10 DC 04/19/17 09:09 75 MCG Midazolam HCl (Versed Inj) 5 mg STK-MED ONCE .ROUTE 04/19/17 09:09 04/19/17 09:10 DC 04/19/17 09:09 3 MG Oxycodone HCl (Roxicodone Immediate Rel Tab) 5 mg Q4RWA PRN PO 04/19/17 10:15 05/03/17 10:14 04/21/17 21:23 5 MG Heparin Sodium (Porcine) (Heparin Sq 5000 Unit/0.5ml) 5,000 unit Q8 SQ 04/19/17 14:00 05/19/17 13:59 04/23/17 13:56 5,000 UNIT Vancomycin HCl 500 mg/Sodium Chloride 260 ml @ 125 mls/hr TODAY@2100 IV 04/19/17 21:00 04/19/17 23:05 DC 04/19/17 21:38 125 MLS/HR Carvedilol (Coreg Tab) 6.25 mg BID PO 04/19/17 19:00 04/20/17 14:34 DC 04/20/17 08:23 6.25 MG Senna/Docusate Sodium (Senokot S Tab) 1 tab NOW ONCE PO 04/19/17 23:00 04/19/17 23:01 DC 04/19/17 23:13 1 TAB Magnesium Hydroxide (Milk Of Magnesia Susp) 30 ml NOW ONCE PO 04/20/17 11:30 04/20/17 12:09 DC 04/20/17 11:30 30 ML Levofloxacin 750 mg/Prmx 150 ml @ 100 mls/hr Q2D@1800 IV 04/20/17 18:00 04/27/17 23:59 04/22/17 18:59 100 MLS/HR Carvedilol (Coreg Tab) 9.375 mg BID PO 04/20/17 21:00 04/22/17 16:51 DC 04/22/17 08:04 9.375 MG Insulin Glargine (Lantus Solostar Pen) 12 units QAM SC 04/21/17 09:00 04/21/17 09:01 DC 04/21/17 08:32 12 UNITS Ferrous Sulfate (Feosol Tab) 325 mg BIDM PO 04/21/17 16:45 05/21/17 16:44 04/23/17 08:10 325 MG Ferrous Sulfate (Feosol Tab) 325 mg 1115 ONCE PO 04/21/17 11:15 04/21/17 11:16 DC 04/21/17 11:10 325 MG Vancomycin HCl 1000 mg/Sodium Chloride 270 ml @ 125 mls/hr Q24H IV 04/21/17 14:00 04/21/17 16:18 DC 04/21/17 15:53 125 MLS/HR Cefepime HCl 2000 mg/Dextrose 112.5 ml @ 225 mls/hr NOW ONCE IV 04/21/17 11:15 04/21/17 11:44 DC 04/21/17 12:44 225 MLS/HR Insulin Glargine (Lantus Solostar Pen) 15 units QAM SC 04/22/17 09:00 05/22/17 08:59 04/23/17 08:19 15 UNITS Cefepime HCl 2000 mg/Dextrose 112.5 ml @ 225 mls/hr Q12@0000,1200 IV 04/22/17 00:00 04/29/17 11:59 04/23/17 11:24 225 MLS/HR Vancomycin HCl 1000 mg/Sodium Chloride 270 ml @ 125 mls/hr Q24H IV 04/22/17 16:00 04/28/17 15:59 04/22/17 16:36 125 MLS/HR Carvedilol (Coreg Tab) 12.5 mg BID PO 04/22/17 21:00 05/19/17 18:59 04/23/17 08:11 12.5 MG Latanoprost (Xalatan Oph Soln) 1 drops HS OPB 04/22/17 21:00 05/22/17 20:59 04/22/17 20:51 1 DROPS Assessment and Plan Assessment and Plan: 61 year old male to female transgender woman who presented to the ED in asystole and has since also had documented atrial fibrillation. She states that she felt some shortness of breath and bilateral leg swelling for 2 days prior to arrival. Past medical history includes HIV, HTN, Stroke, Diabetes Type II, G6PD, and Stage III CKD. Upon admission, she developed acute respiratory failure secondary to the cardiac arrest and required immediate intubation. She was extubated 2 days ago and has slowly improved with her breathing and is currently breathing on room air. In addition to her CKD, an acute renal injury, most likely due to hypoperfusion was also documented. Yesterday she had a permanent pacemaker successfully put in and is recovering well from that. She has had some tachycardia since then. Her blood pressure readings continue to be elevated. Her imaging and procedures during this hospital course also include: CT Scan showed: cardiomegaly, right pleural effusion, 2 nodules (one in the right upper lobe and the other in the right middle lobe). Abdominal x-ray: asymptomatic cholelithiasis EKG: most recent EKG shows NSR, RBBB, and Right axis deviation Echo: small pericardial effusion was documented. No structural wall or valvular defects. CXR: 2 most recent studies showed evidence for either bilateral pulmonary edema or PNA. Hospital acquired Pneumonia She is feeling much better today. Her symptoms seems to have largely resolved and she has not had any fevers in over 24 hours. Her final sputum culture was only grew moderate amounts of normal shavonne. ID saw her this morning and recommended narrowing her antibiotic coverage. She is breathing comfortably on her current oxygen amount but unknown how she does with ambulation. -Stop IV Vancomycin, Cefepime -Continue Levofloxacin (Levaquin) PO for 2 days. -Continue with 2.0L of O2 due to SOB with ambulation Hypertension Blood pressure is still similar to what it has been these past couple of days. Continue to monitor on current therapy for 1-2 days. -Continue current dose of Carvedilol at 12.5mg BID PO -Continue Amlodipine at current dose Asystole Well managed by the successful insertion of a pacemaker with no recurrence of episodes. She has been in NSR in the 70s and 80s with only some occasional pacing. Her insertion site is doing much better today. Due to her episode of atrial fibrillation, it is recommended that she stay on telemetry to monitor for repeat episodes of a. fib. -Give patient Tylenol or oxycodone as needed for soreness -Follow up w/ cardiology in 1 week. Dopamine Infiltration Wound Her right arm, where the dopamine infiltration wound is located, continues to be swollen but it is much less painful today than previously. -Continue elevation of right arm and with wound care -Tylenol for pain and inflammation as needed Anemia She continues to have low hgb counts, although it is slightly higher than yesterday. It is not quite back to what her previous admission hgb levels were. - Continue with 1 TAB Fe PO BID Acute Renal Injury w/ CKD Stage III Her BUN and Cr show improvement back to baseline levels. No Electrolyte abnormalities seen. -Continue to encourage fluid intake and monitor Cr, BUN, and Na. Chronic HIV Infection Her CD4 counts came back at 217 cells/uL but as per ID's consultation this may be due to acute illness. -Based on current return to normal kidney function, ID has recommended that it is ok to restart HAART Therapy -No prophylactic therapy recommended at this CD4 level -Follow up with ID doc about HIV. Diabetes Type II Her recent glucose levels were better today. -Continue current insulin therapy Glaucoma -continue Latanoprost ophthalmic solution Hormone therapy -Restart her estradiol upon discharge Pulmonary Nodules found on CT Recommend follow up and repeat CT in 3-6 months. Encourage patient to consider smoking cessation DVT Prophylaxis -Continue SQ Heparin injections We are slowly transitioning her medications to PO and she may be ready for discharge tomorrow. Continued [facility] stay due to: abnormal vital signs, multiple IV medications needed, other (Monitor vitals, possible PNA)
[2017-04-23] MEDS ORDERED: VANCOMYCIN TROUGH SCH (15:30)
[2017-04-23] MEDS: LATANOPROST 0.005% OP SOLN 2.5 ML BTL OPB SCH (20:21)
[2017-04-23] MEDS: DARUNAVIR ETHANOLATE 800 MG TAB PO SCH (21:30)
--- NOTE | 2017-04-23 23:53 | Hospitalist Progress Note ---
Hospitalist Progress Note Date of Service Apr 23, 2017. Subjective Pt evaluation today including: conversation w/ patient feeling much better today, less right arm pain and swelling, cough very minimal , afebrile, having some sternal pain with coughing likely from CPR All Other Systems: Reviewed and Negative Objective Vital Signs Date Time Temp Pulse Resp B/P (MAP) Pulse Ox O2 Delivery O2 Flow Rate FiO2 04/23/17 20:12 Room Air 04/23/17 19:02 36.9 81 18 161/69 (99) 96 Room Air 04/23/17 16:04 Room Air 04/23/17 15:26 37.2 80 18 155/69 (97) 93 Room Air 04/23/17 12:00 Room Air 04/23/17 11:46 37.1 74 20 161/72 (101) 95 Room Air 04/23/17 10:36 95 Room Air 04/23/17 08:13 36.8 75 16 165/75 (105) 97 Nasal Cannula 2.0 04/23/17 08:07 74 162/66 (98) 04/23/17 08:00 Nasal Cannula 2.0 04/23/17 04:26 37.3 75 19 147/66 (93) 97 Nasal Cannula 2.0 04/23/17 04:00 Nasal Cannula 2.0 04/23/17 00:00 Nasal Cannula 2.0 04/22/17 23:57 37.2 81 18 151/72 (98) 96 Nasal Cannula 2.0 Physical Exam General Appearance: WD/WN, no apparent distress Eyes: normal inspection, sclerae normal ENT: hearing grossly normal Neck: trachea midline Respiratory/Chest: no respiratory distress, no accessory muscle use, + decreased breath sounds (at bases bilat) Cardiovascular: regular rate, rhythm, no edema, no murmur Abdomen: normal bowel sounds, non tender, soft Extremities: non-tender, normal inspection, no pedal edema Neurologic/Psychiatric: alert, normal mood/affect, oriented x 3 Skin: normal color, warm/dry, no rash, + pertinent finding (right arm in kerlix dressing) Laboratory Results Last 24 Hours Test 04/23/17 06:43 04/23/17 07:58 04/23/17 11:03 04/23/17 16:36 Bedside Glucose 89 mg/dl 149 mg/dl 252 mg/dl White Blood Count 6.04 K/uL Red Blood Count 2.95 M/uL Hemoglobin 9.1 g/dL Hematocrit 27.1 % Mean Corpuscular Volume 91.9 fL Mean Corpuscular Hemoglobin 30.8 pg Mean Corpuscular Hemoglobin Concent 33.6 g/dl Platelet Count 211 K/uL Mean Platelet Volume 9.8 fL Neutrophils (%) (Auto) 68.2 % Lymphocytes (%) (Auto) 15.6 % Monocytes (%) (Auto) 11.9 % Eosinophils (%) (Auto) 3.5 % Basophils (%) (Auto) 0.3 % Neutrophils # (Auto) 4.12 K/uL Lymphocytes # (Auto) 0.94 K/uL Monocytes # (Auto) 0.72 K/uL Eosinophils # (Auto) 0.21 K/uL Basophils # (Auto) 0.02 K/uL RDW Standard Deviation 41.2 fL RDW Coefficient of Variation 12.4 % Immature Granulocyte % (Auto) 0.5 % Immature Granulocyte # (Auto) 0.03 K/uL Sodium Level 138 mmol/L Potassium Level 4.4 mmol/L Chloride Level 110 mmol/L Carbon Dioxide Level 22 mmol/L Anion Gap 6.0 mmol/L Blood Urea Nitrogen 35 mg/dl Creatinine 2.00 mg/dl Est Creatinine Clear Calc Drug Dose 36.1 ml/min Estimated GFR () 40.0 Estimated GFR (Non- 34.5 BUN/Creatinine Ratio 17.4 Random Glucose 101 mg/dl Calcium Level 8.6 mg/dl Magnesium Level 2.1 mg/dl Test 04/23/17 20:25 Bedside Glucose 101 mg/dl Assessment and Plan 61 y/o transgender female with recurrent asystole, known to have HIV, HTN, who was admitted to the ICU s/p asystolic and cardiac arrest with multiple rounds of compressions.Had Arctic cooling protocol in ICU afterwards with transcutaneous pacing wire placed. The patient has had a similar episode in 2016. Back then it was blamed on cardizem and the medication was stopped with resolution of symptoms. She was not given a permanent pacemaker at that time. - Cardiac arrest due to sinus arrest, sinus node dysfunction, PAF in ICU. Mildly elevated troponin from CPR, HTN-remains uncontrolled but improving after starting Coreg. Pacemaker is functioning properly, paced on tele occasionally. There is a possibility of pulmonary edema on his chest x-ray versus multifocal pneumonia status post resuscitation-more likely to be PNA. Had permanent pacemaker on Thursday 04/19 echo with preserved EF of 65-70%, no WMA -Continue telemetry monitoring -heparin gtt for atrial fibrillation stopped as this is likely an isolated event due to acute events-if has increased burden of atrial fibrillation as per his pacemaker interrogations in the future, can consider restarting anticoagulation at that time-no recurrent A-fib so far -was on metoprolol at home, now started on Coreg by Cardio-continue 9.5mg bid and increase as needed, continue amlodipine -will need Cardio outpt f/u on Wednesday for wound check, She was advised to keep the wound dry and no lifting of the left arm above the shoulder or behind the neck for period of 6 weeks time. - Acute hypoxemic respiratory failure/arrest secondary to cardiac arrest. Initially suspected PNA on CT Chest. Repeat CXR 04/20 with persistent by basilar opacities which could be pulmonary edema or pneumonia. Then 04/21 with worsening cough and productive sputum , low grade temps. Discussed with ID--> need to treat for HCAP to treat for GNR PNA and MRSA PNA. ID following. SPutum culture normal shavonne extubated 04/17, but remains on oxygen-wean O2 as tolerated -ID recommends discontinuing Vanco and Cefepime,and continue po Levaquin for 2 more days -f/u CXR in 3-4 weeks to ensure resolution - LEEROY on CKD stage III: Cr peaked at 3.6 and is continuing to stable today at 2.0 which is at his baseline likely ATN from cardiac arrest and poor kidney perfusion adequate UO, non-oliguric K stable Continue to follow PRP - Anemia: H/H stable/improved, no signs of bleeding any further after 20-30 mL from OGT in ER, hold on transfusion. Iron studies consistent with Anemia of Chronic disease, likely of renal disease. B12 and folate normal. -follow CBC LUE pain and edema, recent pacer placement--> checked Doppler with was negative for DVT--> pain resolved Right forearm dopamine extravasation soft tissue injury with necrosis and tissue debrided by Wound MD-improved edema and pain -continue Xeroform dressing changes daily wrapped in kerlix until healed -continue pain control -elevate limb - HIV:Appreciate ID consultation and recommendations CD4 count low at 217-ID thinks low due to acute illness HIV RNA quant <20 -ok to restart HAART therapy as LEEROY resolved -no PCP prophylaxis needed -f/u with HIV MD at long-term Lipase increased-no abd pain, US of abdomen shows cholelithiasis but nothing abnl on pancreas although limited views. Lipase trending downward and now normal. Diabetes mellitus II with hyperglycemia- HgbA1C 6.0% here very well controlled -continue basal bolus insulin, glucose checks -Appreciate Pharmacy management -is only on SSI as outpt--> consider either Lantus adding or adding another po med Pulm nodules-seen on CT Chest -NEEDS f/u CT Chest in 3-6 months - Hx of transgender with hormone use-stable -restart Estradiol on dc full code Dispo- to long-term perhaps tomorrow
[2017-04-24 04:16] VITALS: BP 165/83; PULSE 76; TEMP 37; O2SAT 97
[2017-04-24 06:00] LABS: HEMATOCRIT 28.5 % (42-52); MEAN CELL VOLUME 92.2 fL (80-100); MEAN CORPUSCULAR HEMOGLOBIN 30.4 pg (25-34); MEAN PLATELET VOLUME 9.6 fL (7.4-10.4); PLATELET COUNT 242 K/uL (130-400); RED BLOOD COUNT 3.09 M/uL (4.7-6.1); WHITE BLOOD COUNT 5.09 K/uL (4.8-10.8)
[2017-04-24] MEDS: HEPARIN SOD 5000 UNIT/0.5 ML CARP SQ SCH ×3 (06:00→23:01)
[2017-04-24 08:04] VITALS: BP 129/67; PULSE 78; TEMP 36.9; O2SAT 95
[2017-04-24] MEDS: CARVEDILOL 12.5 MG TAB PO SCH ×2 (08:49→22:59)
[2017-04-24] MEDS: AMLODIPINE BESYLATE 5 MG TAB PO SCH (08:49)
[2017-04-24] MEDS: FERROUS SULFATE 325 MG TAB PO SCH ×2 (08:49→17:20)
[2017-04-24] MEDS: ACETAMINOPHEN 325 MG TAB PO PRN (08:51)
[2017-04-24] MEDS: INSULIN GLARGINE SOLOSTAR 100 UNITS/ML 3 ML PEN SC SCH (08:55)
[2017-04-24] MEDS: INSULIN ASPART 100 UNITS/ML 3 ML PEN SC SCH ×4 (08:55→21:00)
[2017-04-24] MEDS ORDERED: ELVITEGRAVIR COBICISTAT EMTRIC PO SCH (09:00)
[2017-04-24 09:29] LABS: BUN/CREATININE RATIO 18.3 (10-20); CALCIUM 8.9 mg/dl (8.5-10.1); CREATININE 1.9 mg/dl (0.60-1.40); POTASSIUM 4.6 mmol/L (3.5-5.1)
[2017-04-24 10:54] VITALS: BP 158/76; PULSE 72; TEMP 36.9; O2SAT 95
[2017-04-24] MEDS ORDERED: CYCLOBENZAPRINE HCL 5 MG TAB PO PRN (13:15)
[2017-04-24 13:37] VITALS: TEMP 36.8
[2017-04-24] MEDS ORDERED: CARVEDILOL 12.5 MG TAB PO ONE (13:45)
[2017-04-24] MEDS ORDERED: CYCLOBENZAPRINE HCL 5 MG TAB PO ONE (14:15)
--- NOTE | 2017-04-24 14:54 | DIAGNOSTIC IMAGING REPORT ---
CHEST ONE VIEW PORTABLE CLINICAL HISTORY: Pneumonia, cough, fever. COMPARISON STUDY: 04/22/2017 FINDINGS: The heart is mildly enlarged. There is a left subclavian dual-chamber central venous pacemaker. There are bilateral lower lung zone airspace opacities. There are small bilateral pleural effusions. There is improving mild interstitial edema.[ IMPRESSION: 1. Slight improvement in the interstitial pulmonary edema 2. Persistent bilateral pleural effusions with associated bilateral lower lobe airspace opacities. These could be atelectatic, inflammatory, or secondary to focal edema. Electronically signed by: Barron Alonso M.D. 04/24/2017 2:53 PM Dictated Date/Time: 04/24/2017 2:52 PM
[2017-04-24 16:00] VITALS: BP 145/69; PULSE 66; TEMP 37.3; O2SAT 98
[2017-04-24] MEDS ORDERED: LEVOFLOXACIN 750 MG TAB PO SCH (18:00)
[2017-04-24] MEDS: LATANOPROST 0.005% OP SOLN 2.5 ML BTL OPB SCH (22:58)
--- NOTE | 2017-04-24 23:05 | Hospitalist Progress Note ---
Hospitalist Progress Note Date of Service Apr 24, 2017. Subjective Pt evaluation today including: conversation w/ patient Pt feeling weaker today, lightheaded, having chills and sweats but temps are normal. Feels like maybe her cough is getting worse again. Having left sided neck pain that hurts worse with turning head to the left. Also withtingling in her fingertips on left. Also became tearful saying she was scared that the assisted won't take good care of her right forearm wound once she returns. All Other Systems: Reviewed and Negative Objective Vital Signs Date Time Temp Pulse Resp B/P (MAP) Pulse Ox O2 Delivery O2 Flow Rate FiO2 04/24/17 16:02 Room Air 04/24/17 16:00 37.3 66 18 145/69 (94) 98 Room Air 04/24/17 13:37 36.8 04/24/17 12:07 Room Air 04/24/17 10:54 36.9 72 18 158/76 (103) 95 Room Air 04/24/17 08:04 36.9 78 18 129/67 (87) 95 04/24/17 08:01 Room Air 04/24/17 04:16 37.0 76 17 165/83 (110) 97 Room Air 04/24/17 04:00 Room Air 04/24/17 00:00 Room Air 04/23/17 23:37 37.6 75 18 156/73 (100) 91 Room Air Physical Exam General Appearance: WD/WN, no apparent distress Eyes: normal inspection, sclerae normal ENT: hearing grossly normal Neck: supple, no adenopathy, trachea midline, + pertinent finding (+TTP over left paraspinous muscles, FROM of neck, pain with turning head to left) Respiratory/Chest: lungs clear, normal breath sounds, no respiratory distress, no accessory muscle use Cardiovascular: regular rate, rhythm, no edema, no gallop, no murmur Abdomen: normal bowel sounds, non tender, soft Extremities: no pedal edema, no calf tenderness, + pertinent finding (Rt forearm edema much improved, wound covered with kerlix dressing) Neurologic/Psychiatric: alert, + pertinent finding (tearful, anxious) Skin: no rash, + pertinent finding (left anterior chest with steri strips in place over pacer site, no erythema or drainage) Laboratory Results Last 24 Hours Test 04/24/17 05:46 04/24/17 06:45 04/24/17 10:37 04/24/17 16:33 White Blood Count 5.09 K/uL Red Blood Count 3.09 M/uL Hemoglobin 9.4 g/dL Hematocrit 28.5 % Mean Corpuscular Volume 92.2 fL Mean Corpuscular Hemoglobin 30.4 pg Mean Corpuscular Hemoglobin Concent 33.0 g/dl RDW Standard Deviation 41.5 fL RDW Coefficient of Variation 12.4 % Platelet Count 242 K/uL Mean Platelet Volume 9.6 fL Sodium Level 138 mmol/L Potassium Level 4.6 mmol/L Chloride Level 108 mmol/L Carbon Dioxide Level 21 mmol/L Anion Gap 9.0 mmol/L Blood Urea Nitrogen 35 mg/dl Creatinine 1.90 mg/dl Est Creatinine Clear Calc Drug Dose 37.4 ml/min Estimated GFR () 42.5 Estimated GFR (Non- 36.7 BUN/Creatinine Ratio 18.3 Random Glucose 114 mg/dl Calcium Level 8.9 mg/dl Magnesium Level 2.0 mg/dl Bedside Glucose 138 mg/dl 177 mg/dl 127 mg/dl Test 04/24/17 20:55 Bedside Glucose 123 mg/dl Assessment and Plan 61 y/o transgender female with recurrent asystole, known to have HIV, HTN, who was admitted to the ICU s/p asystolic and cardiac arrest with multiple rounds of compressions.Had Arctic cooling protocol in ICU afterwards with transcutaneous pacing wire placed. The patient has had a similar episode in 2016. Back then it was blamed on cardizem and the medication was stopped with resolution of symptoms. She was not given a permanent pacemaker at that time. - Cardiac arrest due to sinus arrest, sinus node dysfunction, PAF in ICU. Mildly elevated troponin from CPR, HTN-remains uncontrolled but improving after starting Coreg. Pacemaker is functioning properly, paced on tele occasionally. There is a possibility of pulmonary edema on his chest x-ray versus multifocal pneumonia status post resuscitation-more likely to be PNA. Had permanent pacemaker on Thursday 04/19 echo with preserved EF of 65-70%, no WMA -Continue telemetry monitoring -heparin gtt for atrial fibrillation stopped as this is likely an isolated event due to acute events-if has increased burden of atrial fibrillation as per his pacemaker interrogations in the future, can consider restarting anticoagulation at that time-no recurrent A-fib so far -was on metoprolol at home, now started on Coreg by Cardio-increase to 18.75mg bid, continue amlodipine -will need Cardio outpt f/u on Wednesday for wound check, She was advised to keep the wound dry and no lifting of the left arm above the shoulder or behind the neck for period of 6 weeks time. - Acute hypoxemic respiratory failure/arrest secondary to cardiac arrest. Initially suspected PNA on CT Chest. Repeat CXR 04/20 with persistent by basilar opacities which could be pulmonary edema or pneumonia. Then 04/21 with worsening cough and productive sputum , low grade temps. Discussed with ID--> need to treat for HCAP to treat for GNR PNA and MRSA PNA. ID following. SPutum culture normal shavonne. Today with subjectively worsening cough, sweats/chills but no fever, no leukocytosis--> could be Estradiol withdrawal. Repeat CXR today actually slightly improved. extubated 04/17, but remains on oxygen-wean O2 as tolerated, check POx with ambulation prior to dc -ID recommends discontinuing Vanco and Cefepime,and continue po Levaquin for 1 more day -f/u CXR in 3-4 weeks to ensure resolution -restart Estradiol patch-to be brought by guards from assisted Left sided neck pain-MSK in nature. -flexeril prn tylenol prn pain -stretches - LEEROY on CKD stage III: Cr peaked at 3.6 and is continuing to stable today at 1.9 which is at his baseline likely ATN from cardiac arrest and poor kidney perfusion adequate UO, non-oliguric K stable Continue to follow PRP - Anemia: H/H stable/improved, no signs of bleeding any further after 20-30 mL from OGT in ER, hold on transfusion. Iron studies consistent with Anemia of Chronic disease, likely of renal disease. B12 and folate normal. -follow CBC LUE pain and edema, recent pacer placement--> checked Doppler with was negative for DVT--> pain resolved Right forearm dopamine extravasation soft tissue injury with necrosis and tissue debrided by Wound MD-improved edema and pain -continue Xeroform dressing changes daily wrapped in kerlix until healed -continue pain control -elevate limb - HIV:Appreciate ID consultation and recommendations CD4 count low at 217-ID thinks low due to acute illness HIV RNA quant <20 -ok to restart HAART therapy as LEEROY resolved -no PCP prophylaxis needed -f/u with HIV MD at assisted Lipase increased-no abd pain, US of abdomen shows cholelithiasis but nothing abnl on pancreas although limited views. Lipase trending downward and now normal. Diabetes mellitus II with hyperglycemia- HgbA1C 6.0% here very well controlled -continue basal bolus insulin, glucose checks -Appreciate Pharmacy management -is only on SSI as outpt--> consider either adding Lantus at assisted or adding another po med Pulm nodules-seen on CT Chest -NEEDS f/u CT Chest in 3-6 months - Hx of transgender with hormone use-stable -restart Estradiol today/when guard brings from assisted full code Dispo- to assisted in 1-2 days
[2017-04-24] MEDS: DARUNAVIR ETHANOLATE 800 MG TAB PO SCH (23:21)
[2017-04-24 23:43] VITALS: BP 159/70; PULSE 72; TEMP 36.2; O2SAT 94
[2017-04-25 04:43] VITALS: BP 159/77; PULSE 67; TEMP 37.2; O2SAT 97
[2017-04-25] MEDS: HEPARIN SOD 5000 UNIT/0.5 ML CARP SQ SCH ×2 (06:39→13:19)
[2017-04-25 07:21] LABS: BASO % 0.2 %; BASO ABS # 0.01 K/uL (0-0.2); EOS % 3.1 %; HEMATOCRIT 26.8 % (42-52); IG% 0.4 %; LYMPH % 27.9 %; LYMPH ABS # 1.24 K/uL (1.2-3.4); MEAN CELL VOLUME 91.5 fL (80-100); MEAN CORPUSCULAR HEMOGLOBIN 30.4 pg (25-34); MEAN CORPUSCULAR HGB CONC 33.2 g/dl (32-36); MEAN PLATELET VOLUME 9.6 fL (7.4-10.4); MONO % 13.5 %; NEUT % 54.9 %; PLATELET COUNT 257 K/uL (130-400); RED BLOOD COUNT 2.93 M/uL (4.7-6.1); WHITE BLOOD COUNT 4.45 K/uL (4.8-10.8)
[2017-04-25 07:46] LABS: COMPLETE YES; POLYCHROMASIA 1+
[2017-04-25 07:53] LABS: BUN/CREATININE RATIO 16.7 (10-20); CALCIUM 8.8 mg/dl (8.5-10.1); CREATININE 1.8 mg/dl (0.60-1.40); POTASSIUM 4.3 mmol/L (3.5-5.1)
[2017-04-25 08:06] VITALS: BP 159/77; PULSE 63; TEMP 36.8; O2SAT 98
[2017-04-25] MEDS: AMLODIPINE BESYLATE 5 MG TAB PO SCH (08:55)
[2017-04-25] MEDS: FERROUS SULFATE 325 MG TAB PO SCH ×2 (08:55→16:17)
[2017-04-25] MEDS: INSULIN ASPART 100 UNITS/ML 3 ML PEN SC SCH ×3 (08:57→17:43)
[2017-04-25] MEDS: INSULIN GLARGINE SOLOSTAR 100 UNITS/ML 3 ML PEN SC SCH (08:57)
[2017-04-25 09:26] VITALS: BP 170/80; PULSE 70; O2SAT 96
[2017-04-25] MEDS: CARVEDILOL 12.5 MG TAB PO SCH (10:28)
[2017-04-25 10:57] VITALS: BP 156/73; PULSE 66; TEMP 36.6; O2SAT 98
--- NOTE | 2017-04-25 15:10 | Pharmacy Progress Note ---
Glycemic Control Progress Note Date of Service Apr 25, 2017. Scope Glycemic Pharmacist consulted for glycemic control to write orders per [facility] inpatient glycemic control protocol. Objective Accuchecks BSG (last 24hrs): Test 04/24/17 16:33 04/24/17 20:55 04/25/17 06:42 04/25/17 07:01 Bedside Glucose 127 mg/dl (70-99) 123 mg/dl (70-99) 132 mg/dl (70-99) Random Glucose 109 mg/dl (70-99) Test 04/25/17 11:40 Bedside Glucose 111 mg/dl (70-99) HbA1c: Test 04/18/17 03:45 Hemoglobin A1c 6.0 % (4.5-5.6) H Recent Pertinent Medications The patient is currently receiving: * Basal insulin: Lantus 15 units every 24 hours * Correctional Insulin: Novolog Correction per scale ACHS Goal Range: Low 110 mg/dL - High 140 mg/dL Correction Factor: 45 mg/dL/unit * Prandial insulin: Per carb ratio of 1 unit per 15 grams CHO consumed Outpatient Anti-Diabetic Meds Humulin R sliding scale Assessment & Plan ASSESSMENT: * See progress note from 04/21/17 for more background info, in short: * Pt receiving SQ basal bolus insulin regimen for hyperglycemia secondary to baseline DM (outpatient regimen on hold),stress/infection (PO Levaquin for MRSA HCAP * Patient is currently receiving an average of 28 units of insulin per day * 15 units of basal insulin * 13 units of prandial/correctional insulin * BSGs ranging 109 - 127 mg/dl over the past 24hrs * No changes needed to insulin regimen PLAN FOR INPATIENT GLYCEMIC CONTROL: * Basal insulin * Lantus 15 units SQ QAM * Bolus insulin * NovoLog per scale ACHS or Q6hrs while NPO * Goal Range: Low 110 mg/dL - High 140 mg/dL * Correction Factor: 45 mg/dL/unit * Nutritional / Prandial insulin per carb ratio of 1 unit per 15 grams CHO consumed RECOMMENDATIONS FOR DISCHARGE: * Patient's HbA1C is very well controlled. As long as patient is not having hypoglycemia it is reasonable to continue current regimen. * IF pt experiencing hypoglycemia as outpatient - consider changing patient to Lantus 20 units SQ daily * Please note that the plan above was derived based on current level of insulin resistance and hospital stress. These recommendations are appropriate for inpatient admission only. Plan of care upon discharge will need to be reassessed to avoid potential outpatient hypo/hyperglycemia. Thank you.
[2017-04-25 15:32] VITALS: BP 146/75; PULSE 84; TEMP 37.1; O2SAT 95
[2017-04-25] MEDS ORDERED: BUME1TAB PO (18:23)
[2017-04-25] MEDS ORDERED: INSDGIPEN SC (18:23)
[2017-04-25] MEDS ORDERED: CRG125 PO (18:23)
[2017-04-25] MEDS ORDERED: FRRS300 PO (18:23)
[2017-04-25] MEDS ORDERED: ACET-1047 PO (18:23)
[2017-04-25] MEDS ORDERED: POTA10CA28 PO (18:23)
--- NOTE | 2017-04-25 18:40 | Discharge Instructions ---
Discharge Instructions Date of Service Apr 25, 2017. Admission Reason for Admission: Cardiac Arrest Discharge Discharge Diagnosis / Problem: Cardiac arrest,Sinus node dysfunction,Pneumonia, Pacemaker placement Discharge Goals Goal(s): Improve disease control, Diagnostic testing, Therapeutic intervention Activity Recommendations Activity Level: Up Ad Gema Pacemaker insertion site: keep the wound dry and no lifting of the left arm above the shoulder or behind the neck for period of 6 weeks from the time of admission . Additional Information Patient informed of condition: Yes Advance Directives: No DNR: No Level of Care: Other ([facility]) Communicable Disease: Yes (HIV) Prognosis: Improving Oxygen at (LPM): N/A Mathis Catheter: No Instructions / Follow-Up Instructions / Follow-Up 61 y/o transgender female with recurrent asystole, known to have HIV, HTN, who was admitted to the ICU s/p asystolic and cardiac arrest with multiple rounds of compressions.Had Arctic cooling protocol in ICU afterwards with transcutaneous pacing wire placed. The patient had a similar episode in 2015. Back then it was thought to be from taking cardizem and the medication was stopped with resolution of symptoms. She was not given a permanent pacemaker at that time. - Cardiac arrest due to sinus arrest, sinus node dysfunction, brief PAF in ICU during recovery. Mildly elevated troponin from CPR, HTN- BPs were uncontrolled but improving after starting Coreg and titrating up on dose to 18.75mg bid . Had permanent pacemaker on Thursday 04/19 Pacemaker is functioning properly, paced on tele occasionally. There is a possibility of pulmonary edema on his chest x-ray versus multifocal pneumonia status post resuscitation-more likely to be PNA. ECHO with preserved EF of 65-70%, no WMA -Initially on heparin gtt for atrial fibrillation but no further anticoagulation needed as this is likely an isolated event due to acute events- if has increased burden of atrial fibrillation as per her pacemaker interrogations in the future, can consider restarting anticoagulation at that time -was on metoprolol at home, now started on Coreg by Cardio-increase to 18.75mg bid, continue amlodipine -will need Cardio outpt f/u within 1 week for wound check - Acute hypoxemic respiratory failure/arrest secondary to cardiac arrest. Initially suspected PNA on CT Chest. Repeat CXR 04/20 with persistent by basilar opacities which could be pulmonary edema or pneumonia. Then 04/21 with worsening cough and productive sputum , low grade temps. Discussed with ID--> need to treat for HCAP to treat for GNR PNA and MRSA PNA. ID was following. Sputum culture grew normal shavonne and broad spectrum antibiotics (Cefepime and Vancomycin) discontinued except Levaquin for a full course-completed Repeat CXR today actually slightly improved but would not expect radiographical resolution of infiltrates for 3-4 weeks at least Was not requiring oxygen even with ambulation on day of discharge -f/u CXR in 3-4 weeks to ensure resolution Left sided neck pain-MSK in nature.Improved with stretching and flexeril tylenol prn pain -stretches - LEEROY on CKD stage III: Cr peaked at 3.6 and is continuing to be stable for many days at 1.8 which is at his baseline likely ATN from cardiac arrest and poor kidney perfusion adequate UO, non-oliguric K stable Continue to follow renal function periodically as outpatient Ok to restart torsemide every other day along with KCl supplementation - Anemia: H/H stable/improved at 8.8, no signs of bleeding any further after initial 20-30 mL from OGT in ER s/p CPR. Iron studies consistent with Anemia of Chronic disease, likely of renal disease. B12 and folate normal. -follow CBC as outpatient LUE pain and edema, recent pacer placement--> checked Doppler with was negative for DVT--> pain resolved Right forearm dopamine extravasation soft tissue injury with necrosis and tissue debrided by Wound MD-improved edema and pain -continue Xeroform dressing changes daily wrapped in kerlix until healed -continue pain control -elevate limb - HIV:Appreciate ID consultation and recommendations CD4 count low at 217-ID thinks low due to acute illness HIV RNA quant <20 -ok to restart HAART therapy as LEEROY resolved -no PCP prophylaxis needed -f/u with HIV MD at [facility] Lipase increased-no abd pain, US of abdomen shows cholelithiasis but nothing abnl on pancreas although limited views. Lipase trending downward and now normal. Diabetes mellitus II with hyperglycemia- HgbA1C 6.0% here very well controlled -continue basal bolus insulin, glucose checks -Appreciate Pharmacy management -is only on SSI as outpt--> consider either adding Lantus at [facility] or adding another po med Pulm nodules-seen on CT Chest -NEEDS f/u CT Chest in 3-6 months - Hx of transgender with hormone use-stable -restart Estradiol upon discharge Full code Dispo- to [facility] today Current Hospital Diet Patient's current hospital diet: AHA Diet (Heart Healthy), Low Sodium Diet (2gm Na), Diabetes Type 2 Diet Discharge Diet Recommended Diet: AHA Diet (Heart Healthy) Procedures Procedures Performed: Permanent pacemaker placement Echocardiogram x 2 Chest xrays LUE Doppler US Abdominal US Head CT CTA Chest Pending Studies Studies pending at discharge: no Physician Orders On Transfer Special Precautions: Pacemaker site with left upper extremity restrictions as above Dressing Changes: Right forearm wound--> Xeroform dressing changes daily wrapped in kerlix until healed Left anterior chest wall pacemaker site-steri strips in place until fall off on own, keep wound dry IV Therapy: None Vital Signs: Routin Weigh: Routine Additional Orders: Cardiology follow up with Dr. Taras Paz at [facility] within 1 week POL Discussion: Not Applicable Laboratory Results Last 24 Hours Test 04/24/17 20:55 04/25/17 06:42 04/25/17 07:01 04/25/17 11:40 Bedside Glucose 123 mg/dl 132 mg/dl 111 mg/dl White Blood Count 4.45 K/uL Red Blood Count 2.93 M/uL Hemoglobin 8.9 g/dL Hematocrit 26.8 % Mean Corpuscular Volume 91.5 fL Mean Corpuscular Hemoglobin 30.4 pg Mean Corpuscular Hemoglobin Concent 33.2 g/dl Platelet Count 257 K/uL Mean Platelet Volume 9.6 fL Neutrophils (%) (Auto) 54.9 % Lymphocytes (%) (Auto) 27.9 % Monocytes (%) (Auto) 13.5 % Eosinophils (%) (Auto) 3.1 % Basophils (%) (Auto) 0.2 % Neutrophils # (Auto) 2.44 K/uL Lymphocytes # (Auto) 1.24 K/uL Monocytes # (Auto) 0.60 K/uL Eosinophils # (Auto) 0.14 K/uL Basophils # (Auto) 0.01 K/uL RDW Standard Deviation 41.6 fL RDW Coefficient of Variation 12.5 % Immature Granulocyte % (Auto) 0.4 % Immature Granulocyte # (Auto) 0.02 K/uL Polychromasia 1+ Sodium Level 139 mmol/L Potassium Level 4.3 mmol/L Chloride Level 110 mmol/L Carbon Dioxide Level 22 mmol/L Anion Gap 7.0 mmol/L Blood Urea Nitrogen 30 mg/dl Creatinine 1.80 mg/dl Est Creatinine Clear Calc Drug Dose 39.5 ml/min Estimated GFR () 45.4 Estimated GFR (Non- 39.2 BUN/Creatinine Ratio 16.7 Random Glucose 109 mg/dl Calcium Level 8.8 mg/dl Magnesium Level 2.0 mg/dl Test 04/25/17 16:08 Bedside Glucose 80 mg/dl Hemoglobin A1c Test 04/18/17 03:45 Range/Units Estimated Average Glucose 126 mg/dl Hemoglobin A1c 6.0 H 4.5-5.6 % Medical Emergencies . Who to Call and When: Medical Emergencies: If at any time you feel your situation is an emergency, please call 911 immediately. . Non-Emergent Contact Non-Emergency issues call your: Primary Care Provider, Retail Product Demo Specialist Call Non-Emergent contact if: you have a fever, your pain is not controlled, your pain is worsening, your pain is unusual for you, your pain is concerning you, you have any medication questions . . "Provider Documentation" section prepared by Lissa Johnson. . Core Measure Problem Core Measures: None
[2017-04-25 18:44] VITALS: BP 146/75; PULSE 84; TEMP 37.1; O2SAT 95
--- NOTE | 2017-04-25 18:48 | Discharge Summary ---
Discharge Summary Date of Service Apr 25, 2017. Discharge Summary Admission Date: Apr 16, 2017 at 11:53 Discharge Date: Apr 25, 2017 Discharge Disposition: Home Principal Diagnosis: Cardiac arrest,Sinus node dysfunction Problems/Secondary Diagnoses: Asystole HIV HTN PAF Elevated troponin from CPR Permanent pacemaker placement Pulmonary edema Pneumonia/HCAP Acute hypoxemic respiratory failure Left sided neck pain LEEROY on CKD stage III secondary to ATN Anemia of Chronic disease Right forearm dopamine extravasation soft tissue injury with necrosis Asymptomatic cholelithiasis Diabetes mellitus II with hyperglycemia Pulmonary nodules Transgender with hormone use Procedures: Permanent pacemaker placement Echocardiogram x 2 Chest xrays LUE Doppler US Abdominal US Head CT CTA Chest Consultations: Cardiology Critical Care Medicine Infectious Disease Gastroenterology Wound Care Medication Reconciliation New Medications: Acetaminophen (Mapap) 325 Mg Tab 650 MG PO Q6H PRN for FEVER/PAIN for 30 Days Carvedilol (Carvedilol) 12.5 Mg Tab 18.75 MG PO BID for 30 Days Ferrous Sulfate (Ferrous Sulfate) 325 Mg Tab 325 MG PO BIDM for 30 Days, TAB Insulin Glargine (Lantus Solostar) 100 Unit/Ml Inj 15 UNITS SC QAM for 30 Days Changed Medications: Bumetanide (Bumex) 1 Mg Tab 1 MG PO Q2D for 30 Days, TAB (Changed from: DIRECTED) Potassium Chloride (Micro-K Ext Rel) 10 Meq Capcr 10 MEQ PO Q2D for 30 Days, CAP (Changed from: DAILY) on same days as Bumex Continued Medications: Amlodipine Besylate (Norvasc) 10 Mg Tab 1 TAB PO DAILY for 30 Days, #30 TAB 5 Refills Aspirin (Aspirin EC Low Dose) 81 Mg Ectab 81 MG PO QAM for 30 Days Atorvastatin (Atorvastatin Calcium) 40 Mg Tab 40 MG PO QAM for 30 Days, #30 TAB Darunavir Ethanolate (Prezista) 800 Mg Tab 800 MG PO HS Uriipnbplcup-Aavipuelmq-Yqigfi (Genvoya [phone] mg) 1 Tab Tab 1 TAB PO DAILY Estradiol (Climara) 0.1 Mg/24 Hr Dis 0.1 MG TOP DAILY Finasteride (Proscar) 5 Mg Tab 5 MG PO DAILY, TAB Glucose (Bd Glucose) 1 Tab Chew 4 MG PO QID PRN for PRN Insulin Human Regular (Humulin R) 100 Units/Ml Susp 1 DOSE SQ SLIDING SCALE 201-250= 2 UNITS 251-300= 4 UNITS 301-350= 6 UNITS 351-400= 8 UNITS 401-450= 10 UNITS 451-500= 12 UNITS Latanoprost 0.005% Oph (Xalatan 0.005% Oph) Soln 1 DROP OPB HS Multivitamin (Multivitamin) Tab 1 TAB PO DAILY, TAB Discontinued Medications: Estradiol (Estradiol) 2 Mg Tab 1 MG PO DAILY for 90 Days, #45 TAB 3 Refills Metoprolol Tartrate (Lopressor) (Lopressor) 50 Mg Tab 50 MG PO BID, TAB Ondansetron Hcl (Zofran) 8 Mg Tab 8 MG PO BID PRN for Nausea, TAB Discharge Exam Doing very well on day of discharge, ambulating without assistance,no need for O2. Cough very minimal, still some residual left trapezius pain. Physical Exam General Appearance: WD/WN, no apparent distress Eyes: normal inspection, sclerae normal ENT: hearing grossly normal Neck: supple, no adenopathy, trachea midline, + pertinent finding (+TTP over left paraspinous muscles, FROM of neck, pain with turning head to left) Respiratory/Chest: lungs clear, normal breath sounds, no respiratory distress, no accessory muscle use Cardiovascular: regular rate, rhythm, no edema, no gallop, no murmur Abdomen: normal bowel sounds, non tender, soft Extremities: no pedal edema, no calf tenderness, + pertinent finding (Rt forearm edema much improved, wound covered with kerlix dressing) Neurologic/Psychiatric: alert, normal mood and affect Skin: no rash, + pertinent finding (left anterior chest with steri strips in place over pacer site, no erythema or drainage) Review of Systems: Constitutional: No fever, No chills Eyes: No problem reported ENT: No problem reported Respiratory: No problem reported Cardiovascular: No problem reported Abdomen: No problem reported Musculoskeletal: + problem reported (as per HPI) Genitourinary - Male: No problem reported Neurologic: No problem reported Psychiatric: No problem reported Endocrine: No problem reported Hematologic / Lymphatic: No problem reported Integumentary: No problem reported Hospital Course 61 y/o transgender female with recurrent asystole, known to have HIV, HTN, who was admitted to the ICU s/p asystolic and cardiac arrest with multiple rounds of compressions.Had Arctic cooling protocol in ICU afterwards with transcutaneous pacing wire placed. The patient had a similar episode in 2016. Back then it was thought to be from taking cardizem and the medication was stopped with resolution of symptoms. She was not given a permanent pacemaker at that time. - Cardiac arrest due to sinus arrest, sinus node dysfunction, brief PAF in ICU during recovery. Mildly elevated troponin from CPR, HTN- BPs were uncontrolled but improving after starting Coreg and titrating up on dose to 18.75mg bid . Had permanent pacemaker on Thursday 04/19 Pacemaker is functioning properly, paced on tele occasionally. There is a possibility of pulmonary edema on his chest x-ray versus multifocal pneumonia status post resuscitation-more likely to be PNA. ECHO with preserved EF of 65-70%, no WMA -Initially on heparin gtt for atrial fibrillation but no further anticoagulation needed as this is likely an isolated event due to acute events- if has increased burden of atrial fibrillation as per her pacemaker interrogations in the future, can consider restarting anticoagulation at that time -was on metoprolol at home, now started on Coreg by Cardio-increase to 18.75mg bid, continue amlodipine -will need Cardio outpt f/u within 1 week for wound check - Acute hypoxemic respiratory failure/arrest secondary to cardiac arrest. Initially suspected PNA on CT Chest. Repeat CXR 04/20 with persistent by basilar opacities which could be pulmonary edema or pneumonia. Then 04/21 with worsening cough and productive sputum , low grade temps. Discussed with ID--> need to treat for HCAP to treat for GNR PNA and MRSA PNA. ID was following. Sputum culture grew normal shavonne and broad spectrum antibiotics (Cefepime and Vancomycin) discontinued except Levaquin for a full course-completed Repeat CXR today actually slightly improved but would not expect radiographical resolution of infiltrates for 3-4 weeks at least Was not requiring oxygen even with ambulation on day of discharge -f/u CXR in 3-4 weeks to ensure resolution Left sided neck pain-MSK in nature.Improved with stretching and flexeril tylenol prn pain -stretches - LEEROY on CKD stage III: Cr peaked at 3.6 and is continuing to be stable for many days at 1.8 which is at his baseline likely ATN from cardiac arrest and poor kidney perfusion adequate UO, non-oliguric K stable Continue to follow renal function periodically as outpatient Ok to restart torsemide every other day along with KCl supplementation - Anemia: H/H stable/improved at 8.8, no signs of bleeding any further after initial 20-30 mL from OGT in ER s/p CPR. Iron studies consistent with Anemia of Chronic disease, likely of renal disease. B12 and folate normal. -follow CBC as outpatient LUE pain and edema, recent pacer placement--> checked Doppler with was negative for DVT--> pain resolved Right forearm dopamine extravasation soft tissue injury with necrosis and tissue debrided by Wound MD-improved edema and pain -continue Xeroform dressing changes daily wrapped in kerlix until healed -continue pain control -elevate limb - HIV:Appreciate ID consultation and recommendations CD4 count low at 217-ID thinks low due to acute illness HIV RNA quant <20 -ok to restart HAART therapy as LEEROY resolved -no PCP prophylaxis needed -f/u with HIV MD at [facility] Lipase increased-no abd pain, US of abdomen shows cholelithiasis but nothing abnl on pancreas although limited views. Lipase trending downward and now normal. Diabetes mellitus II with hyperglycemia- HgbA1C 6.0% here very well controlled -continue basal bolus insulin, glucose checks -Appreciate Pharmacy management -is only on SSI as outpt--> consider either adding Lantus at [facility] or adding another po med Pulm nodules-seen on CT Chest -NEEDS f/u CT Chest in 3-6 months - Hx of transgender with hormone use-stable -restart Estradiol upon discharge Full code Dispo- to [facility] today Total Time Spent: Greater than 30 minutes This includes examination of the patient, discharge planning, medication reconciliation, and communication with other providers. Discharge Instructions Please refer to the electronic Patient Visit Report (Discharge Instructions) for additional information. Additional Copies To [facility]
== END 2017-04-25 19:55 | disposition home or self-care (01) | DRG 242 ==
LOC: EDBD 10:00 → C.EDB 10:01 → C.MSICU 11:53 → EDBEDREQ 11:56 → ENRESERV 11:57 → C.MSICU 04-17 16:18 → ENRESERV 04-19 15:53 → C.2T 04-19 16:25
PROVIDERS: ADMIT Family Medicine; ATTEND Family Medicine
PROC: 0BH13EZ Insertion of Endotracheal Airway into Trachea, Percutaneous Approach (ICD-10-PCS; principal; 2017-04-16 14:28)
PROC: 02HK0JZ Insertion of Pacemaker Lead into Right Ventricle, Open Approach (ICD-10-PCS; 2017-04-19)
PROC: 0JH606Z Insertion of Pacemaker, Dual Chamber into Chest Subcutaneous Tissue and Fascia, Open Approach (ICD-10-PCS; 2017-04-19)
DX: I46.9 Cardiac arrest, cause unspecified (principal); B20 Human immunodeficiency virus [HIV] disease; J18.9 Pneumonia, unspecified organism; K92.2 Gastrointestinal hemorrhage, unspecified; N17.9 Acute kidney failure, unspecified; I12.9 Hypertensive chronic kidney disease with stage 1 through stage 4 chronic kidney disease, or unspecified chronic kidney disease; F17.200 Nicotine dependence, unspecified, uncomplicated; N18.3 Chronic kidney disease, stage 3 (moderate); Z86.73 Personal history of transient ischemic attack (TIA), and cerebral infarction without residual deficits; E11.9 Type 2 diabetes mellitus without complications; F64.9 Gender identity disorder, unspecified; D64.9 Anemia, unspecified; E87.5 Hyperkalemia; I95.9 Hypotension, unspecified; Z79.82 Long term (current) use of aspirin; Z95.0 Presence of cardiac pacemaker

== ENCOUNTER → 2017-07-20 | Outpatient (CLI) | payer OTHER ==
[~2017-07-20] MED LIST changes: +ACET-1047 PO; +BUME1TAB PO; +CRG125 PO; +ESTR0.1D16 TOP; -ESTR2TAB PO; +FRRS300 PO; +INSDGIPEN SC; +MULT-506 PO; +OPTIRAY 320 IV PRN; +POTA10CA28 PO; +[UNRECOGNIZED DRUG - CODE] PO
--- NOTE | 2017-07-20 09:08 | DIAGNOSTIC IMAGING REPORT ---
(CHEST) THORAX WITHOUT CT DOSE: 198.54 mGycm CLINICAL HISTORY: 61 years-old Male with SCAN WITHOUT CONTRAST PER PBS(KF)-ELEVATED LABS. Follow-up study in a patient with sub-solid lung nodules TECHNIQUE: Multiaxial CT images of the chest were performed without contrast. A dose lowering technique was utilized adhering to the principles of ALARA. COMPARISON: CTA of the chest 04/16/2017. FINDINGS: Thyroid appears heterogeneous without dominant nodule identified. No pathologic adenopathy by CT size criteria identified. Left pectoral pacer is noted with leads overlying the right atrium and right ventricle. There is a moderate pleural effusion measuring up to 1.3 cm posteriorly which has increased in size from comparison study 04/16/2017. Mild to moderate multichamber cardiac enlargement with coronary arterial disease. No aortic aneurysm identified. Mild to moderate plaquing of the thoracic aorta. No pneumothorax or pleural effusion. Linear subsegmental left greater than right basilar opacities suggest atelectasis or scarring. There is improved aeration of the lung bases from comparison study. There are no new suspicious nodules of the lungs identified. Thin-walled cyst of the right upper lobe measuring 7 mm is noted on image 98 series 4 with minimal adjacent pleural parenchymal scarring likely reflecting a pneumatocele, unchanged. Central airways are patent with only minimal layering mucosal secretions noted. The previously seen groundglass 5.5 mm nodule of the right middle lobe is no longer identified. The previously noted 6 mm nodule of the right upper lobe has also resolved. 3 mm groundglass nodule of the right upper lobe is seen on image 86 series 4. No acute abnormality of the imaged upper abdomen layering gallstones seen within the gallbladder lumen. Extensive bilateral gynecomastia. Bones appear intact. Multilevel endplate spurring of the spine. There is a subacute appearing nondisplaced fracture of the mid sternum as seen on image 132 series 4 with surrounding healing callus formation. This appears new from comparison 04/16/2017. IMPRESSION: 1. No acute intrathoracic abnormality identified. Resolution of the previously described sub-solid nodules of the right upper and right middle lobes . 2. 3 mm groundglass nodule of the right upper lobe is likely benign. 3. Cardiomegaly with moderate sized pericardial effusion, new from comparison. 4. Subacute nondisplaced healing fracture of the mid sternum with healing callus formation is new from comparison study 04/16/2017. Please refer to below summary of Fleischner criteria recommendations for follow-up of incidental CT nodules (Mary Rose, Guidelines for management of small pulmonary nodules detected on CT scans: A statement from the Fleischner Society, Radiology 237: [id number].) Note: newly detected indeterminate nodule in persons 35 years of age or older. * Low risk patients: minimal or absent history of smoking and/or other known risk factors * high risk patients: history of smoking or of other known risk factors (e.g. first degree relative with lung cancer, or exposure to asbestos, radon, uranium) * if a nodule up to 8 mm is partly solid or is ground glass further follow-up is required after 24 months to exclude possible slow growing adenocarcinoma (OSCAR) SUBSOLID NODULES Solitary pure ground-glass nodule * nodule size <6 mm - no CT follow-up required * nodule size >=6 mm - follow-up CT at 6-12 months, then every 2 years until 5 years The above report was generated using voice recognition software. It may contain grammatical, syntax or spelling errors. Electronically signed by: Dickson Tate M.D. 07/20/2017 9:07 AM Dictated Date/Time: 07/20/2017 8:52 AM
== END ==
LOC: C.CTS 08:26
PROVIDERS: ATTEND Family Medicine
DX: R91.8 Other nonspecific abnormal finding of lung field (principal); R91.1 Solitary pulmonary nodule; I51.7 Cardiomegaly; S22.20XD Unspecified fracture of sternum, subsequent encounter for fracture with routine healing; X58.XXXD Exposure to other specified factors, subsequent encounter

== ENCOUNTER 2017-08-17 08:59 | Inpatient (IN) | payer OTHER ==
[~2017-08-17] VITALS: Ht 162.6 cm; Wt 59.6 kg
[~2017-08-17 08:59] MED LIST changes: -OPTIRAY 320 IV PRN
[2017-08-17] MEDS ORDERED: BUME1TAB42 PO (09:15)
[2017-08-17] MEDS ORDERED: GLIP10TA3 PO (09:15)
[2017-08-17] MEDS ORDERED: MoRPHine SULFATE 10 MG/ML CARP/VIAL IV STA ×2 (09:34→11:37)
[2017-08-17] MEDS ORDERED: SODIUM CHLORIDE 0.9% 500ML 500 ML IV STA (09:34)
[2017-08-17] MEDS ORDERED: ONDANSETRON INJ 2 MG/ML 2 ML VIAL IV STA (09:34)
[2017-08-17] MEDS ORDERED: OPTIRAY 320 IV PRN (09:45)
[2017-08-17 10:00] LABS: EOS % 0.2 %; EOS ABS # 0.01 K/uL (0-0.5); HEMATOCRIT 38.1 % (42-52); HEMOGLOBIN 13.4 g/dL (14.0-18.0); LYMPH % 9.3 %; LYMPH ABS # 0.49 K/uL (1.2-3.4); MEAN CELL VOLUME 93.8 fL (80-100); MEAN CORPUSCULAR HGB CONC 35.2 g/dl (32-36); MEAN PLATELET VOLUME 10.7 fL (7.4-10.4); MONO % 4.2 %; MONO ABS # 0.22 K/uL (0.11-0.59); NEUT % 86.3 %; NEUT ABS # 4.53 K/uL (1.4-6.5); PLATELET COUNT 163 K/uL (130-400); RED CELL DISTRIBUTION WIDTH CV 11.6 % (11.5-14.5); RED CELL DISTRIBUTION WIDTH SD 39.3 fL (36.4-46.3); WHITE BLOOD COUNT 5.25 K/uL (4.8-10.8)
--- NOTE | 2017-08-17 10:05 | DIAGNOSTIC IMAGING REPORT ---
CHEST ONE VIEW PORTABLE CLINICAL HISTORY: Cough. COMPARISON STUDY: Chest CT July 20, 2017. FINDINGS: A dual lead left subclavian pacemaker is in place. There is no pneumothorax or pleural effusion. There is moderate enlargement of the cardiac silhouette. There is mild interstitial thickening. No lobar consolidation is present. IMPRESSION: 1. Mild interstitial thickening which could reflect pulmonary vascular congestion or an infectious process. 2. Moderate enlargement of the cardiac silhouette. 3. Mild left lower opacity which could reflect atelectasis or consolidation. Electronically signed by: Gustavo Kathleen M.D. 08/17/2017 10:04 AM Dictated Date/Time: 08/17/2017 10:00 AM
[2017-08-17 10:41] LABS: ALBUMIN 3.2 gm/dl (3.4-5.0); CALCIUM 8.3 mg/dl (8.5-10.1); CREATININE 2.5 mg/dl (0.60-1.40); POTASSIUM 4.3 mmol/L (3.5-5.1)
[2017-08-17 10:43] LABS: TOTAL PROTEIN 8.1 gm/dl (6.4-8.2)
--- NOTE | 2017-08-17 11:55 | DIAGNOSTIC IMAGING REPORT ---
ABD/PELVIS NO IV OR ORAL CONT CT DOSE: 266.28 mGy.cm HISTORY: Pain abd pain TECHNIQUE: Multiaxial CT images of the abdomen and pelvis were performed without contrast. A dose lowering technique was utilized adhering to the principles of ALARA. COMPARISON STUDY: None. FINDINGS: Bibasilar parenchymal infiltrative change. Cardiomegaly. Pericardial effusion with maximum thickness of 11 mm. Bipolar cardiac pacemaker. Liver spleen and pancreas are uniform. Multiple fluid-filled loops of distended small bowel. Gallstones within a nondistended gallbladder lumen. No significant colonic distention. 6 mm appendicolith near the base of the appendix. Diameter of the appendix is difficult to ascertain given the complete absence of oral contrast. Small amount of free fluid within the right and to a lesser extent left paracolic gutter. It is impossible to entirely exclude the possibility of appendicitis versus reactive inflammatory change of the appendix. Bladder is midline. Minimal degenerative changes of the thoracolumbar spine. IMPRESSION: 1. Bibasilar parenchymal infiltrates with a pericardial effusion having a maximum thickness of 11 mm. 2. Findings consistent with distal small bowel obstructive change with potential underlying primary or reactive inflammatory change of the appendix with a 6 mm associated appendicolith. 3. Small amount of free fluid within the right and to a lesser extent left paracolic gutter. 4. No evidence for well-defined abscess or collection within limitations of a completely unenhanced study. The above report was generated using voice recognition software. It may contain grammatical, syntax or spelling errors. Electronically signed by: Davion Lopez M.D. 08/17/2017 11:53 AM Dictated Date/Time: 08/17/2017 11:36 AM
[2017-08-17] MEDS ORDERED: CEFEPIME IV 1,000 MG in DEXTROSE 5% 100ML 100 ML IV STA (12:01)
[2017-08-17] MEDS ORDERED: LEVAQUIN 750MG / 150ML D5W IV STA (12:01)
[2017-08-17] MEDS ORDERED: SULFAMETHOXAZOLE/TRIMETHOPRIM DS 800/160MG TAB PO STA (12:03)
--- NOTE | 2017-08-17 12:28 | Medical Consult ---
Consultation Date of Consultation: Aug 17, 2017. Attending Physician: History of Present Illness 61 y/o male inmate with abdominal pain, bloating for 2 days. Had N/V x1 this AM. Hasn't eaten or had much to drink in past two days. Normal BM this AM. No previous abdominal surgery or obstruction. Past Medical/Surgical History Medical Problems: HIV HTN PAF Acute hypoxemic respiratory failure Left sided neck pain LEEROY on CKD stage III secondary to ATN Anemia of Chronic disease Diabetes mellitus II with hyperglycemia Pulmonary nodules Transgender with hormone use Surgical: Permanent pacemaker placement Family History No pertinent family history stated Social History Smoking Status: Unknown if Ever Smoked Drug Use: none Housing Status: other Occupation Status: unemployed Allergies Coded Allergies: Penicillins (Verified Allergy, Intermediate, UNKNOWN, 08/17/17) Current Inpatient Medications Current Inpatient Medications Medications (Trade) Dose Ordered Sig/Carlin Route Start Time Stop Time Status Last Admin Dose Admin Ioversol (Optiray 320) 100 ml UD PRN IV 08/17/17 09:45 08/21/17 09:44 Cefepime HCl 1000 mg/Dextrose 111 ml @ 200 mls/hr NOW STAT IV 08/17/17 12:01 08/17/17 12:34 Review of Systems Constitutional: No fever, No chills Abdomen: + pain, + nausea, + vomiting, No diarrhea, No constipation Physical Exam Date Time Temp Pulse Resp B/P (MAP) Pulse Ox O2 Delivery O2 Flow Rate FiO2 08/17/17 10:43 67 20 180/81 93 Nasal Cannula 2.0 08/17/17 10:09 85 Nasal Cannula 2.0 08/17/17 10:07 67 20 172/78 90 Room Air 08/17/17 09:08 37.6 70 24 182/83 90 Room Air 08/17/17 09:08 67 General Appearance: WD/WN, no apparent distress Abdomen/GI: + tenderness (generalized), + distended (minimal), + guarding Neurologic/Psych: alert, oriented x 3 Skin: normal color, warm/dry Laboratory Results Last 24 Hours Test 08/17/17 09:00 08/17/17 09:50 08/17/17 09:55 White Blood Count 5.25 K/uL Red Blood Count 4.06 M/uL Hemoglobin 13.4 g/dL Hematocrit 38.1 % Mean Corpuscular Volume 93.8 fL Mean Corpuscular Hemoglobin 33.0 pg Mean Corpuscular Hemoglobin Concent 35.2 g/dl Platelet Count 163 K/uL Mean Platelet Volume 10.7 fL Neutrophils (%) (Auto) 86.3 % Lymphocytes (%) (Auto) 9.3 % Monocytes (%) (Auto) 4.2 % Eosinophils (%) (Auto) 0.2 % Basophils (%) (Auto) 0.0 % Neutrophils # (Auto) 4.53 K/uL Lymphocytes # (Auto) 0.49 K/uL Monocytes # (Auto) 0.22 K/uL Eosinophils # (Auto) 0.01 K/uL Basophils # (Auto) 0.00 K/uL RDW Standard Deviation 39.3 fL RDW Coefficient of Variation 11.6 % Immature Granulocyte % (Auto) 0.0 % Immature Granulocyte # (Auto) 0.00 K/uL Sodium Level 136 mmol/L Potassium Level 4.3 mmol/L Chloride Level 105 mmol/L Carbon Dioxide Level 22 mmol/L Anion Gap 9.0 mmol/L Blood Urea Nitrogen 31 mg/dl Creatinine 2.50 mg/dl Est Creatinine Clear Calc Drug Dose 25.3 ml/min Estimated GFR () 30.5 Estimated GFR (Non- 26.3 BUN/Creatinine Ratio 12.3 Random Glucose 180 mg/dl Calcium Level 8.3 mg/dl Total Bilirubin 1.3 mg/dl Direct Bilirubin 0.4 mg/dl Aspartate Amino Transf (AST/SGOT) 39 U/L Alanine Aminotransferase (ALT/SGPT) 30 U/L Alkaline Phosphatase 105 U/L Total Protein 8.1 gm/dl Albumin 3.2 gm/dl Lipase 241 U/L Bedside Lactic Acid Venous 2.15 mmol/L ABD/PELVIS NO IV OR ORAL CONT CT DOSE: 266.28 mGy.cm HISTORY: Pain abd pain TECHNIQUE: Multiaxial CT images of the abdomen and pelvis were performed without contrast. A dose lowering technique was utilized adhering to the principles of ALARA. COMPARISON STUDY: None. FINDINGS: Bibasilar parenchymal infiltrative change. Cardiomegaly. Pericardial effusion with maximum thickness of 11 mm. Bipolar cardiac pacemaker. Liver spleen and pancreas are uniform. Multiple fluid-filled loops of distended small bowel. Gallstones within a nondistended gallbladder lumen. No significant colonic distention. 6 mm appendicolith near the base of the appendix. Diameter of the appendix is difficult to ascertain given the complete absence of oral contrast. Small amount of free fluid within the right and to a lesser extent left paracolic gutter. It is impossible to entirely exclude the possibility of appendicitis versus reactive inflammatory change of the appendix. Bladder is midline. Minimal degenerative changes of the thoracolumbar spine. IMPRESSION: 1. Bibasilar parenchymal infiltrates with a pericardial effusion having a maximum thickness of 11 mm. 2. Findings consistent with distal small bowel obstructive change with potential underlying primary or reactive inflammatory change of the appendix with a 6 mm associated appendicolith. 3. Small amount of free fluid within the right and to a lesser extent left paracolic gutter. 4. No evidence for well-defined abscess or collection within limitations of a completely unenhanced study. The above report was generated using voice recognition software. It may contain grammatical, syntax or spelling errors. Electronically signed by: Davion Lopez M.D. 08/17/2017 11:53 AM Assessment & Plan enteritis vs PSBO doubt appendicitis, will continue to follow during admission for possible SBO consider contrast CT depending on clinical progress 08/17/17- agree with notes above- pt examined- h/o abd pain, nausea/vomiting , dehydration. CT shows mildly dilated ( 3cm ) fluid filled loops of small bowel and appendolith. doubt mechanical obstr or appendocitis. Rehydrate , check Mg, Phos- replace lytes. depending on progress- ?CT with contrast +/- GI eval. H/O chronic renal insufficiency. Dr Elizabeth
[2017-08-17] MEDS ORDERED: METRONIDAZOLE 500MG / 100ML NSS IV STA (12:29)
[2017-08-17] MEDS ORDERED: DEXTROSE 5% IV ONE (12:45)
[2017-08-17] MEDS ORDERED: SULFA IV ONE (12:45)
[2017-08-17] MEDS ORDERED: TRIMETH IV ONE (12:45)
[2017-08-17] MEDS ORDERED: DEXTROSE 50% 50 ML SYR IV PRN (13:45)
[2017-08-17] MEDS ORDERED: MAGNESIUM HYDROXIDE SUSP 30 ML UDC PO PRN (13:45)
[2017-08-17] MEDS ORDERED: GLUCAGON FOR INJ 1 MG VIAL SQ PRN (13:45)
[2017-08-17] MEDS ORDERED: GLUCOSE 10 TABS/TUBE PO PRN (13:45)
[2017-08-17] MEDS ORDERED: GLUCOSE 40% GEL 15 GM TUBE PO PRN (13:45)
[2017-08-17 14:19] LABS: PHOSPHORUS 3.9 mg/dl (2.5-4.9)
--- NOTE | 2017-08-17 14:22 | History and Physical ---
History & Physical Date & Time of Service: Aug 17, 2017 at 13:59 Chief Complaint: Abdominal Pain Primary Care Physician: Mike SIMMONS History of Present Illness Source: patient, hospital records, other ([facility] records) This is a 61 y/o transgender female with a history of HTN, HLD, sick sinus syndrome s/p pacemaker 04/26/17, DM II, CKD stage III, anemia of chronic disease , and HIV who presented to the ED on 08/16 from [facility] with abdominal pain, nausea and vomiting. The patient first started experiencing cramping abdominal pain around 3 or 4 yesterday afternoon, and her pain became increasingly worse until it reached a severe 10/10 that night. The patient states that she could not find a comfortable position and nothing made the pain better. She developed nausea and vomiting this morning. She did have a small bowel movement this morning prior to arrival. She reports feeling dry and dehydrated. She denies any history of abdominal surgeries. The patient also reports a sometimes productive cough that is resolving from a recent cold, and she did notice some wheezing last night. The patient denies fevers, chills, sweats, chest pain, palpitations, claudication, shortness of breath, dysuria, hematuria, urinary retention, paralysis, weakness, numbness and tingling. Past Medical/Surgical History Medical Problems: (1) CKD (chronic kidney disease), stage III Status: Chronic (2) CVA (cerebral vascular accident) Status: Chronic (3) DM type 2 (diabetes mellitus, type 2) Status: Chronic (4) G-6-PD deficiency Status: Chronic (5) HIV (human immunodeficiency virus infection) Status: Chronic (6) HTN (hypertension) Status: Chronic (7) Erxp-dg-pijdjk transgender person Status: Chronic HLD Sick sinus syndrome s/p pacemaker in Apr 2017 Anemia of chronic disease Family History Diabetes mellitus Hypertension Social History Smoking Status: Never Smoker Smokeless Tobacco Use: No Alcohol Use: none Drug Use: none Marital Status: single Housing status: other ([facility]) Occupational Status: other (inmate) Multi-Drug Resistant Organisms History of MDRO: No Allergies Coded Allergies: Penicillins (Verified Allergy, Intermediate, UNKNOWN, 08/17/17) Home Medications Scheduled Amlodipine Besylate (Norvasc), 1 TAB PO DAILY Atorvastatin (Atorvastatin Calcium), 40 MG PO QAM Bumetanide (Bumex), 0.5 MG PO DAILY Carvedilol (Carvedilol), 18.75 MG PO BID Darunavir Ethanolate (Prezista), 800 MG PO HS Idddhegfvhaa-Hthatcmucx-Hacbjn (Genvoya [id number] mg), 1 TAB PO DAILY Estradiol (Climara), 0.1 MG TOP DAILY Ferrous Sulfate (Ferrous Sulfate), 325 MG PO BIDM Finasteride (Proscar), 5 MG PO DAILY Glipizide (Glucotrol), 10 MG PO BID Latanoprost 0.005% Oph (Xalatan 0.005% Oph), 1 DROP OPB HS Multivitamin (Multivitamin), 1 TAB PO DAILY Scheduled PRN Glucose (Bd Glucose), 4 MG PO QID PRN for PRN Review of Systems Constitutional: No fever, No chills, No sweats Eyes: No worsening of vision, No eye pain, No diplopia ENT: No hearing loss, No nasal symptoms, No trouble swallowing Respiratory: +Cough, sometimes productive with thin mucus. Wheezing last night. No shortness of breath Cardiovascular: No chest pain, No claudication, No palpitations Abdomen: +10/10 cramping abdominal pain, nausea, vomiting. Musculoskeletal: No joint pain, No muscle pain, No swelling Genitourinary - Male: No dysuria, No urinary retention, No hematuria Neurologic: No paralysis, No weakness, No numbness/tingling Integumentary: No rash, No itch, No color change Physical Exam Vital Signs Date Time Temp Pulse Resp B/P (MAP) Pulse Ox O2 Delivery O2 Flow Rate FiO2 08/17/17 13:35 37.6 66 19 166/79 93 Nasal Cannula 2.0 08/17/17 13:20 68 08/17/17 12:36 37.6 69 20 179/81 93 Nasal Cannula 2.0 08/17/17 10:43 67 20 180/81 93 Nasal Cannula 2.0 08/17/17 10:09 85 Nasal Cannula 2.0 08/17/17 10:07 67 20 172/78 90 Room Air 08/17/17 09:08 37.6 70 24 182/83 90 Room Air 08/17/17 09:08 67 General appearance: Well-developed, well-nourished, no apparent distress Head: Normocephalic, atraumatic Eyes: Normal inspection, PERRL, EOMI ENT: +Dry oral mucosa. Normal ENT inspection, hearing grossly normal, pharynx normal Neck: Supple, no JVD, trachea midline Respiratory/Chest: Lungs clear to auscultation, normal breath sounds, no respiratory distress Cardiovascular: +Pacemaker left chest. Regular rate & rhythm, no gallop, no murmur Abdomen/GI: +Diffusely TTP w/guarding. Mild distention. Hypoactive bowel sounds. Extremities/Musculoskeletal: Normal inspection, no calf tenderness, no pedal edema Neurological/Psych: Alert, normal mood/affect, oriented x 3 Skin: Normal color, warm/dry, no rash Diagnostics Laboratory Results Results Past 24 Hours Test 08/17/17 09:00 08/17/17 09:50 08/17/17 09:55 Range/Units White Blood Count 5.25 4.8-10.8 K/uL Red Blood Count 4.06 4.7-6.1 M/uL Hemoglobin 13.4 14.0-18.0 g/dL Hematocrit 38.1 42-52 % Mean Corpuscular Volume 93.8 80-100 fL Mean Corpuscular Hemoglobin 33.0 25-34 pg Mean Corpuscular Hemoglobin Concent 35.2 32-36 g/dl Platelet Count 163 130-400 K/uL Mean Platelet Volume 10.7 7.4-10.4 fL Neutrophils (%) (Auto) 86.3 % Lymphocytes (%) (Auto) 9.3 % Monocytes (%) (Auto) 4.2 % Eosinophils (%) (Auto) 0.2 % Basophils (%) (Auto) 0.0 % Neutrophils # (Auto) 4.53 1.4-6.5 K/uL Lymphocytes # (Auto) 0.49 1.2-3.4 K/uL Monocytes # (Auto) 0.22 0.11-0.59 K/uL Eosinophils # (Auto) 0.01 0-0.5 K/uL Basophils # (Auto) 0.00 0-0.2 K/uL RDW Standard Deviation 39.3 36.4-46.3 fL RDW Coefficient of Variation 11.6 11.5-14.5 % Immature Granulocyte % (Auto) 0.0 % Immature Granulocyte # (Auto) 0.00 0.00-0.02 K/uL Sodium Level 136 136-145 mmol/L Potassium Level 4.3 3.5-5.1 mmol/L Chloride Level 105 98-107 mmol/L Carbon Dioxide Level 22 21-32 mmol/L Anion Gap 9.0 3-11 mmol/L Blood Urea Nitrogen 31 7-18 mg/dl Creatinine 2.50 0.60-1.40 mg/dl Est Creatinine Clear Calc Drug Dose 25.3 ml/min Estimated GFR () 30.5 Estimated GFR (Non- 26.3 BUN/Creatinine Ratio 12.3 10-20 Random Glucose 180 70-99 mg/dl Calcium Level 8.3 8.5-10.1 mg/dl Total Bilirubin 1.3 0.2-1 mg/dl Direct Bilirubin 0.4 0-0.2 mg/dl Aspartate Amino Transf (AST/SGOT) 39 15-37 U/L Alanine Aminotransferase (ALT/SGPT) 30 12-78 U/L Alkaline Phosphatase 105 45-117 U/L Total Protein 8.1 6.4-8.2 gm/dl Albumin 3.2 3.4-5.0 gm/dl Lipase 241 73-393 U/L Bedside Lactic Acid Venous 2.15 0.90-1.70 mmol/L Diagnostic Radiology Reviewed the following studies and agree with interpretation as follows: CHEST ONE VIEW PORTABLE CLINICAL HISTORY: Cough. COMPARISON STUDY: Chest CT July 20, 2017. FINDINGS: A dual lead left subclavian pacemaker is in place. There is no pneumothorax or pleural effusion. There is moderate enlargement of the cardiac silhouette. There is mild interstitial thickening. No lobar consolidation is present. IMPRESSION: 1. Mild interstitial thickening which could reflect pulmonary vascular congestion or an infectious process. 2. Moderate enlargement of the cardiac silhouette. 3. Mild left lower opacity which could reflect atelectasis or consolidation. ABD/PELVIS NO IV OR ORAL CONT CT DOSE: 266.28 mGy.cm HISTORY: Pain abd pain TECHNIQUE: Multiaxial CT images of the abdomen and pelvis were performed without contrast. A dose lowering technique was utilized adhering to the principles of ALARA. COMPARISON STUDY: None. FINDINGS: Bibasilar parenchymal infiltrative change. Cardiomegaly. Pericardial effusion with maximum thickness of 11 mm. Bipolar cardiac pacemaker. Liver spleen and pancreas are uniform. Multiple fluid-filled loops of distended small bowel. Gallstones within a nondistended gallbladder lumen. No significant colonic distention. 6 mm appendicolith near the base of the appendix. Diameter of the appendix is difficult to ascertain given the complete absence of oral contrast. Small amount of free fluid within the right and to a lesser extent left paracolic gutter. It is impossible to entirely exclude the possibility of appendicitis versus reactive inflammatory change of the appendix. Bladder is midline. Minimal degenerative changes of the thoracolumbar spine. IMPRESSION: 1. Bibasilar parenchymal infiltrates with a pericardial effusion having a maximum thickness of 11 mm. 2. Findings consistent with distal small bowel obstructive change with potential underlying primary or reactive inflammatory change of the appendix with a 6 mm associated appendicolith. 3. Small amount of free fluid within the right and to a lesser extent left paracolic gutter. 4. No evidence for well-defined abscess or collection within limitations of a completely unenhanced study. Impression Assessment and Plan 61 y/o transgender female with a history of HTN, HLD, sick sinus syndrome s/p pacemaker 04/26/17, DM II, CKD stage III, anemia of chronic disease, and HIV who presented to the ED on 08/16 from [facility] with abdominal pain, nausea and vomiting. Pt afebrile, VSS on arrival. O2 sat did drop to 85%, placed on 2L NC. CXR with possible left base consolidation vs atelectasis. CT abdomen/ pelvis with distal small bowel obstructive change and inflammatory change of the appendix with associated appendicolith. Creatinine 2.50, elevated above baseline. POC lactic acid 2.15. LFTs elevated. Partial SBO -Admit to med/surg -General surgery consulted, appreciate recs: Doubt there is appendicitis. Enteritis vs pSBO. Consider contrast CT and GI evaluation depending on clinical progress. -NPO except meds -NSS at 100 cc/hr -Morphine 4 mg IV q4h prn pain -Recheck lactic acid now LEEROY on CKD stage III -Creatinine 2.5 on admission, had been 1.8 in Apr 2017 -IVF as above -Check urine random sodium and creatinine HTN, HLD--stable -Continue Norvasc 10 mg PO qd, Coreg 18.75 mg PO BID, and Lipitor 40 mg PO qd DM II--last HgbA1c was 6.0 on 04/18/17 -Hold glipizide -Insulin sliding scale -Check BSGs q ac and qhs, q6h while NPO -Recheck HgbA1c HIV -Continue Genvoya 1 tab PO qd and Prezista 800 mg PO hs BPH -Continue Proscar 5 mg PO qd Glaucoma -Continue latanoprost drops DVT prophylaxis -Heparin 5000 units SC q12h -CELSO hose and SCDs Code Status -Level I, FULL RESUSCITATION STATUS Resident Physician Supervision Note: Pt evaluated independently. I discussed the case with the PA and agree with the findings and plan as documented in the note. Any exceptions or clarifications are listed here: 61 y/o F HTN, HPL, HIV, CKD, SSS - pacer - presenting with abdominal pain - CT is suspicious for SBO OE AAO x 3 S1,2 R CTAB nondistended abdomen - tender @ lower quadrants No CCE P: Pt evaluated by surgery - appendicitis is not suspected which was initial concern SBO vs enteritis is working Dx Pt has brought own HIV meds - can resume when taking PO placed on SS for DM Documented By: Rio Damian Level of Care Med/Surg Resuscitation Status FULL RESUSCITATION VTE Prophylaxis VTE Risk Assessment Done? Y/N: Yes Risk Level: Moderate Given or contraindicated: Unfractionated heparin SQ, T.E.D. Stockings, SCD's
[2017-08-17] MEDS ORDERED: POLYETHYLENE (MIRALAX) 17 GM PACK PO PRN (15:00)
[2017-08-17 15:15] VITALS: BP 157/84; PULSE 68; TEMP 37.8; O2SAT 92
[2017-08-17 15:30] VITALS: BP 157/84; PULSE 68; TEMP 37.5; O2SAT 92; BMI 24.0
[2017-08-17] MEDS: SODIUM CHLORIDE 0.9% 1000ML 1,000 ML IV SCH (15:36)
[2017-08-17] MEDS: ACETAMINOPHEN 325 MG TAB PO PRN (15:36)
[2017-08-17 15:57] VITALS: TEMP 37.5
[2017-08-17 16:00] VITALS: O2SAT 92
[2017-08-17] MEDS ORDERED: INSULIN ASPART 100 UNITS/ML 3 ML PEN SC SCH (16:00)
--- NOTE | 2017-08-17 16:04 | EMERGENCY ROOM VISIT NOTE ---
History Report prepared by Alber: Gordon Eagle Under the Supervision of: Dr. Simba Franklin D.O. First contact with patient: 09:25 Chief Complaint: ABDOMINAL PAIN Stated Complaint: ABDOMINAL PAIN Nursing Triage Summary: c/o acute bilateral lower abdominal pain that started last evening. Tenderness with guarding. Pt states vomiting prior to EMS arrival. Pacemaker noted in left upper chest with atrial pacing. Hx HIV, HTN. History of Present Illness The patient is a 61 year old male with a history of HIV and hypertension who [facility] with complaints of persistent abdominal pain that started last evening. He states that she has been nauseous as well, and per the correction officers, the patient vomited just prior to arrival. The patient notes that she has had a dry cough. He denies any runny nose or pain or burning with urination. He still has her gallbladder and appendix. The patient states that her last bowel movement was this morning. He adds that he is taking retrovirals. The patient has a pacemaker in the left upper chest. Source of History: patient, other (correction officers) Onset: Last evening Position: abdomen Quality: other (pain) Timing: other (persistent) Associated Symptoms: + cough, + nausea, + vomiting, No urinary symptoms Note: Denies runny nose. Review of Systems See HPI for pertinent positives & negatives. A total of 10 systems reviewed and were otherwise negative. 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 Family History No pertinent family history stated Social History Smoking Status: Unknown if Ever Smoked Drug Use: none Housing Status: other Occupation Status: unemployed Current/Historical Medications Scheduled Amlodipine Besylate (Norvasc), 1 TAB PO DAILY Atorvastatin (Atorvastatin Calcium), 40 MG PO QAM Bumetanide (Bumex), 0.5 MG PO DAILY Carvedilol (Carvedilol), 18.75 MG PO BID Darunavir Ethanolate (Prezista), 800 MG PO HS Gpyenkdljqtb-Vzkftrcntw-Qgfrcm (Genvoya [id number] mg), 1 TAB PO DAILY Estradiol (Climara), 0.1 MG TOP DAILY Ferrous Sulfate (Ferrous Sulfate), 325 MG PO BIDM Finasteride (Proscar), 5 MG PO DAILY Glipizide (Glucotrol), 10 MG PO BID Latanoprost 0.005% Oph (Xalatan 0.005% Oph), 1 DROP OPB HS Multivitamin (Multivitamin), 1 TAB PO DAILY Scheduled PRN Glucose (Bd Glucose), 4 MG PO QID PRN for PRN Allergies Coded Allergies: Penicillins (Verified Allergy, Intermediate, UNKNOWN, 08/17/17) Physical Exam Vital Signs Date Time Temp Pulse Resp B/P (MAP) Pulse Ox O2 Delivery O2 Flow Rate FiO2 08/17/17 13:35 37.6 66 19 166/79 93 Nasal Cannula 2.0 08/17/17 13:20 68 08/17/17 12:36 37.6 69 20 179/81 93 Nasal Cannula 2.0 08/17/17 10:43 67 20 180/81 93 Nasal Cannula 2.0 08/17/17 10:09 85 Nasal Cannula 2.0 08/17/17 10:07 67 20 172/78 90 Room Air 08/17/17 09:08 37.6 70 24 182/83 90 Room Air 08/17/17 09:08 67 Physical Exam GENERAL: Sitting up in bed, in moderate distress holding abdomen. EYE EXAM: normal conjunctiva. OROPHARYNX: no exudate, no erythema, lips, buccal mucosa, and tongue normal and mucous membranes are moist NECK: supple, no nuchal rigidity, no adenopathy, non-tender LUNGS: Rhonchi bilaterally. Normal chest wall mechanics HEART: no murmurs, S1 normal and S2 normal ABDOMEN: abdomen is firm and tender to palpation diffusely. Diminished bowel sounds. BACK: Back is symmetrical on inspection and there is no deformity, no midline tenderness, no CVA tenderness. SKIN: no rashes and no bruising UPPER EXTREMITIES: upper extremities are grossly normal. LOWER EXTREMITIES: No pitting edema. NEURO EXAM: Normal sensorium, cranial nerves II-XII grossly intact, normal speech, no gross weakness of arms, no gross weakness of legs. Medical Decision & Procedures ER Provider Diagnostic Interpretation: Radiology results as stated below per my review and the radiologist's interpretation: CHEST ONE VIEW PORTABLE CLINICAL HISTORY: Cough. COMPARISON STUDY: Chest CT July 20, 2017. FINDINGS: A dual lead left subclavian pacemaker is in place. There is no pneumothorax or pleural effusion. There is moderate enlargement of the cardiac silhouette. There is mild interstitial thickening. No lobar consolidation is present. IMPRESSION: 1. Mild interstitial thickening which could reflect pulmonary vascular congestion or an infectious process. 2. Moderate enlargement of the cardiac silhouette. 3. Mild left lower opacity which could reflect atelectasis or consolidation. Electronically signed by: Gustavo Kathleen M.D. 08/17/2017 10:04 AM Dictated Date/Time: 08/17/2017 10:00 AM ABD/PELVIS NO IV OR ORAL CONT CT DOSE: 266.28 mGy.cm HISTORY: Pain abd pain TECHNIQUE: Multiaxial CT images of the abdomen and pelvis were performed without contrast. A dose lowering technique was utilized adhering to the principles of ALARA. COMPARISON STUDY: None. FINDINGS: Bibasilar parenchymal infiltrative change. Cardiomegaly. Pericardial effusion with maximum thickness of 11 mm. Bipolar cardiac pacemaker. Liver spleen and pancreas are uniform. Multiple fluid-filled loops of distended small bowel. Gallstones within a nondistended gallbladder lumen. No significant colonic distention. 6 mm appendicolith near the base of the appendix. Diameter of the appendix is difficult to ascertain given the complete absence of oral contrast. Small amount of free fluid within the right and to a lesser extent left paracolic gutter. It is impossible to entirely exclude the possibility of appendicitis versus reactive inflammatory change of the appendix. Bladder is midline. Minimal degenerative changes of the thoracolumbar spine. IMPRESSION: 1. Bibasilar parenchymal infiltrates with a pericardial effusion having a maximum thickness of 11 mm. 2. Findings consistent with distal small bowel obstructive change with potential underlying primary or reactive inflammatory change of the appendix with a 6 mm associated appendicolith. 3. Small amount of free fluid within the right and to a lesser extent left paracolic gutter. 4. No evidence for well-defined abscess or collection within limitations of a completely unenhanced study. The above report was generated using voice recognition software. It may contain grammatical, syntax or spelling errors. Electronically signed by: Davion Lopez M.D. 08/17/2017 11:53 AM Dictated Date/Time: 08/17/2017 11:36 AM Laboratory Results 08/17/17 09:00 Red Blood Count 4.06, Mean Corpuscular Volume 93.8, Mean Corpuscular Hemoglobin 33.0, Mean Corpuscular Hemoglobin Concent 35.2, Mean Platelet Volume 10.7, Neutrophils (%) (Auto) 86.3, Lymphocytes (%) (Auto) 9.3, Monocytes (%) (Auto) 4.2, Eosinophils (%) (Auto) 0.2, Basophils (%) (Auto) 0.0, Neutrophils # (Auto) 4.53, Lymphocytes # (Auto) 0.49, Monocytes # (Auto) 0.22, Eosinophils # (Auto) 0.01, Basophils # (Auto) 0.00 08/17/17 09:50 Test 08/17/17 09:00 08/17/17 09:50 08/17/17 09:55 White Blood Count 5.25 K/uL (4.8-10.8) Red Blood Count 4.06 M/uL (4.7-6.1) Hemoglobin 13.4 g/dL (14.0-18.0) Hematocrit 38.1 % (42-52) Mean Corpuscular Volume 93.8 fL (80-100) Mean Corpuscular Hemoglobin 33.0 pg (25-34) Mean Corpuscular Hemoglobin Concent 35.2 g/dl (32-36) Platelet Count 163 K/uL (130-400) Mean Platelet Volume 10.7 fL (7.4-10.4) Neutrophils (%) (Auto) 86.3 % Lymphocytes (%) (Auto) 9.3 % Monocytes (%) (Auto) 4.2 % Eosinophils (%) (Auto) 0.2 % Basophils (%) (Auto) 0.0 % Neutrophils # (Auto) 4.53 K/uL (1.4-6.5) Lymphocytes # (Auto) 0.49 K/uL (1.2-3.4) Monocytes # (Auto) 0.22 K/uL (0.11-0.59) Eosinophils # (Auto) 0.01 K/uL (0-0.5) Basophils # (Auto) 0.00 K/uL (0-0.2) RDW Standard Deviation 39.3 fL (36.4-46.3) RDW Coefficient of Variation 11.6 % (11.5-14.5) Immature Granulocyte % (Auto) 0.0 % Immature Granulocyte # (Auto) 0.00 K/uL (0.00-0.02) Prothrombin Time 10.5 SECONDS (9.0-12.0) Prothromb Time International Ratio 1.0 (0.9-1.1) Anion Gap 9.0 mmol/L (3-11) Est Creatinine Clear Calc Drug Dose 25.3 ml/min Estimated GFR () 30.5 Estimated GFR (Non- 26.3 BUN/Creatinine Ratio 12.3 (10-20) Calcium Level 8.3 mg/dl (8.5-10.1) Phosphorus Level 3.9 mg/dl (2.5-4.9) Magnesium Level 1.9 mg/dl (1.8-2.4) Total Bilirubin 1.3 mg/dl (0.2-1) Direct Bilirubin 0.4 mg/dl (0-0.2) Aspartate Amino Transf (AST/SGOT) 39 U/L (15-37) Alanine Aminotransferase (ALT/SGPT) 30 U/L (12-78) Alkaline Phosphatase 105 U/L (45-117) Total Protein 8.1 gm/dl (6.4-8.2) Albumin 3.2 gm/dl (3.4-5.0) Lipase 241 U/L (73-393) Bedside Lactic Acid Venous 2.15 mmol/L (0.90-1.70) Laboratory results per my review. Medications Administered Medications (Trade) Dose Ordered Sig/Carlin Route Start Time Stop Time Status Last Admin Dose Admin Sodium Chloride 500 ml @ 999 mls/hr Q31M STAT IV 08/17/17 09:34 08/17/17 10:04 DC 08/17/17 10:05 999 MLS/HR Ondansetron HCl (Zofran Inj) 4 mg NOW STAT IV 08/17/17 09:34 08/17/17 09:35 DC 08/17/17 10:03 4 MG Morphine Sulfate (MoRPHine SULFATE INJ) 6 mg NOW STAT IV 08/17/17 09:34 08/17/17 09:35 DC 08/17/17 10:03 6 MG Morphine Sulfate (MoRPHine SULFATE INJ) 6 mg NOW STAT IV 08/17/17 11:37 08/17/17 11:38 DC 08/17/17 11:47 6 MG Cefepime HCl 1000 mg/Dextrose 111 ml @ 200 mls/hr NOW STAT IV 08/17/17 12:01 08/17/17 12:40 DC 08/17/17 12:28 200 MLS/HR Levofloxacin (Levaquin / D5W) 750 mg NOW STAT IV 08/17/17 12:01 08/17/17 12:03 DC 08/17/17 12:28 750 MG Trimethoprim/ Sulfamethoxazole (Septra Ds 800/ 160MG Tab) 1 tab NOW STAT PO 08/17/17 12:03 08/17/17 12:04 DC 08/17/17 13:16 1 TAB Metronidazole (Flagyl / Nss) 500 mg NOW STAT IV 08/17/17 12:29 08/17/17 12:30 DC 08/17/17 14:03 500 MG Acetaminophen (Tylenol Tab) 650 mg Q4H PRN PO 08/17/17 13:45 09/16/17 13:44 08/17/17 15:36 650 MG ED Course ED COURSE: Vital signs were reviewed and showed hypertensive situational vitals. The patients medical record was reviewed The above diagnostic studies were performed and reviewed. ED treatments and interventions as stated above. 0929: The patient was evaluated in room B8. A complete history and physical examination was performed. 0934: Ordered Morphine Sulfate Inj 6 mg IV, Zofran Inj 4 mg IV, NSS 500 ml @ 999 mls/hr IV. 1137: Ordered Morphine Sulfate Inj 6 mg IV. 1201: Ordered Levaquin / D5W 750 mg IV, Cefepime HCl 1000 mg/Dextrose 111 ml @ 200 mls/hr IV. 1203: Ordered Septra Ds 800/1600MG Tab 1 tab PO. 1205: I discussed the patient with John De León PA-C [facility] [place] surgery - we will have the patient hospitalized. 1207: Upon reevaluation, the patient is resting. I discussed my findings with the patient and he understands and agrees with the treatment plan. Based on the patients age, coexisting illnesses, exam and lab findings the decision to treat as an inpatient was made. The patient remained stable while under my care. The patient will be evaluated for further management. 1217: I reevaluated the patient and John Donaldson is in the room. 1230: I reviewed the patient's case with Dr. Rickie STRAUSS bogger operator. He will evaluate the patient for further management. Medical Decision Differential diagnoses includes but is not limited to gastritis, peptic ulcer disease, GERD, gallbladder disease, pancreatitis, small bowel obstruction, acute coronary syndrome, pericarditis, ischemic bowel, irritable bowel disease, irritable bowel syndrome, appendicitis, diverticulitis, malignancy, hernia, urinary tract infection, torsion, perforation, trauma, infectious. Patient is a 60-year-old male who presents to ER for diffuse abdominal pain associated with vomiting, cough, runny nose and shortness of breath. On exam patient is currently ill appearing. CBC was unremarkable. BMP shows a doubling of his creatinine. Bilirubin was unremarkable. Lipase is normal. Lactic acid was 2.1. INR was normal. CT of the abdomen and pelvis confirms a pneumonia which was supported on chest x-ray in combination with a small bowel obstruction and possible thickening of the appendix. Discussed with general surgery. They evaluated the patient bedside. Discussed patient with internal medicine. Patient was admitted for bilateral pneumonia in an immune compromised patient with HIV and a small bowel obstruction. Medication Reconcilliation Current Medication List: was personally reviewed by me Blood Pressure Screening Patient's blood pressure: Elevated blood pressure Blood pressure disposition: Elevated BP felt to be situational Consults Time Called: 1200 Consulting Physician: John STRAUSS surgery Returned Call: 1205 I discussed the patient with John STRAUSS surgery - we will have the patient hospitalized. Additional Consults: Time Called: 1225 Consulted Physician: Dr. Rickie STRAUSS bogger operator Returned Call: 1230 Additional Comments: I reviewed the patient's case with Dr. Rickie STRAUSS bogger operator. He will evaluate the patient for further management. Impression Primary Impression: Sepsis Additional Impressions: PNA (pneumonia) SBO (small bowel obstruction) Scribe Attestation The scribe's documentation has been prepared under my direction and personally reviewed by me in its entirety. I confirm that the note above accurately reflects all work, treatment, procedures, and medical decision making performed by me. Departure Information Dispostion Being Evaluated By Hospitalist [facility] Patient Instructions My [facility] Problem Qualifiers Primary Impression: Sepsis Sepsis type: sepsis due to unspecified organism Qualified Codes: A41.9 - Sepsis, unspecified organism Additional Impressions: PNA (pneumonia) Pneumonia type: due to unspecified organism Laterality: unspecified laterality Lung location: unspecified part of lung Qualified Codes: J18.9 - Pneumonia, unspecified organism
[2017-08-17] MEDS: MoRPHine SULFATE 4 MG/ML 1 ML CARP\\VIAL IV PRN ×2 (16:42→22:40)
[2017-08-17] MEDS ORDERED: NURSING DECISION MEDICATION ORDER SCH (18:00)
[2017-08-17 18:19] LABS: CREATININE RANDOM URINE 94.6 mg/dl
[2017-08-17] MEDS: HEPARIN SOD 5000 UNIT/0.5 ML CARP SQ SCH (20:39)
[2017-08-17] MEDS: LATANOPROST 0.005% OP SOLN 2.5 ML BTL OPB SCH (20:39)
[2017-08-17] MEDS: CARVEDILOL 12.5 MG TAB PO SCH (20:40)
[2017-08-17] MEDS: DARUNAVIR ETHANOLATE 800 MG TAB PO SCH (20:40)
[2017-08-17 20:45] VITALS: BP 170/80; PULSE 69
[2017-08-17] MEDS ORDERED: DARUNAVIR ETHANOLATE 800 MG TAB PO SCH (21:00)
[2017-08-17] MEDS: ONDANSETRON INJ 2 MG/ML 2 ML VIAL IV PRN (22:45)
[2017-08-17 23:30] VITALS: BP 139/78; PULSE 66; TEMP 37.2; O2SAT 95
[2017-08-18] MEDS: SODIUM CHLORIDE 0.9% 1000ML 1,000 ML IV SCH ×3 (01:22→21:12)
[2017-08-18] MEDS: INSULIN ASPART 100 UNITS/ML 3 ML PEN SC SCH ×5 (05:52→20:49)
[2017-08-18 06:54] LABS: HEMATOCRIT 32.2 % (42-52); HEMOGLOBIN 10.9 g/dL (14.0-18.0); MEAN CELL VOLUME 94.4 fL (80-100); MEAN CORPUSCULAR HGB CONC 33.9 g/dl (32-36); MEAN PLATELET VOLUME 10.6 fL (7.4-10.4); PLATELET COUNT 142 K/uL (130-400); RED CELL DISTRIBUTION WIDTH CV 11.7 % (11.5-14.5); RED CELL DISTRIBUTION WIDTH SD 39.9 fL (36.4-46.3); WHITE BLOOD COUNT 8.84 K/uL (4.8-10.8)
[2017-08-18 07:02] VITALS: BP 153/73; PULSE 59; TEMP 36.9; O2SAT 95
[2017-08-18 07:20] LABS: CALCIUM 7.6 mg/dl (8.5-10.1); CREATININE 3.41 mg/dl (0.60-1.40); POTASSIUM 4.6 mmol/L (3.5-5.1)
[2017-08-18] MEDS ORDERED: ELVITEGRAVIR COBICISTAT EMTRIC PO SCH (09:00)
[2017-08-18] MEDS ORDERED: AMLODIPINE BESYLATE 5 MG TAB PO SCH (09:00)
[2017-08-18 09:02] VITALS: BP 143/78; PULSE 60; O2SAT 92
[2017-08-18] MEDS: FINASTERIDE 5 MG TAB PO SCH (09:03)
[2017-08-18] MEDS: ATORVASTATIN 40 MG TAB PO SCH (09:03)
[2017-08-18] MEDS: CARVEDILOL 12.5 MG TAB PO SCH ×2 (09:04→20:55)
[2017-08-18] MEDS: HEPARIN SOD 5000 UNIT/0.5 ML CARP SQ SCH ×2 (09:11→21:07)
[2017-08-18] MEDS: ELVITEGRAVIR COBICISTAT EMTRIC PO SCH (09:17)
[2017-08-18] MEDS: ACETAMINOPHEN 325 MG TAB PO PRN (09:17)
--- NOTE | 2017-08-18 10:36 | Surgery Progress Note ---
Surgery Progress Note Date of Service Aug 18, 2017. Subjective minimal bowel function- she is hungry renal insufficiency worse Objective Vital Signs: Date Time Temp Pulse Resp B/P (MAP) Pulse Ox O2 Delivery O2 Flow Rate FiO2 08/18/17 09:02 60 143/78 (99) 92 Room Air 08/18/17 07:45 Room Air 08/18/17 07:02 36.9 59 16 153/73 (99) 95 Nasal Cannula 2.0 08/18/17 00:12 Room Air 08/17/17 23:30 37.2 66 18 139/78 (98) 95 Nasal Cannula 2.0 08/17/17 20:45 69 170/80 (110) 08/17/17 16:00 92 Room Air 08/17/17 15:57 37.5 08/17/17 15:30 37.5 68 18 157/84 92 Room Air 08/17/17 15:15 37.8 68 18 157/84 (108) 92 Room Air 08/17/17 14:26 37.6 66 19 194/91 96 08/17/17 14:17 37.6 66 19 194/91 96 Nasal Cannula 2.0 08/17/17 13:35 37.6 66 19 166/79 93 Nasal Cannula 2.0 08/17/17 13:20 68 08/17/17 12:36 37.6 69 20 179/81 93 Nasal Cannula 2.0 08/17/17 10:43 67 20 180/81 93 Nasal Cannula 2.0 General Appearance: no apparent distress Respiratory/Chest: no respiratory distress Abdomen: non tender (decreased bowel sounds) Laboratory Results: Results Past 24 Hours Test 08/17/17 14:21 08/17/17 17:37 08/17/17 18:06 08/18/17 00:06 Range/Units Estimated Average Glucose 97 mg/dl Hemoglobin A1c 5.0 4.5-5.6 % Lactic Acid Level 0.9 0.4-2.0 mmol/L Urine Color YELLOW Urine Appearance CLEAR CLEAR Urine pH 6.5 4.5-7.5 Urine Specific [place] 1.015 1.000-1.030 Urine Protein 3+ NEG Urine Glucose (UA) TRACE NEG Urine Ketones NEG NEG Urine Occult Blood 2+ NEG Urine Nitrite NEG NEG Urine Bilirubin NEG NEG Urine Urobilinogen NEG NEG Urine Leukocyte Esterase NEG NEG Urine RBC 0-4 0-4 /hpf Urine WBC 1-5 0-5 /hpf Urine Epithelial Cells >30 0-5 /lpf Urine Bacteria NEG NEG Urine Hyaline Casts 1-5 0-5 /lpf Urine Granular Casts 1-5 0 /lpf Urine Random Creatinine 94.6 mg/dl Urine Random Sodium 43 mEq/L Bedside Glucose 140 137 70-99 mg/dl Test 08/18/17 05:48 08/18/17 06:37 Range/Units Bedside Glucose 165 70-99 mg/dl White Blood Count 8.84 4.8-10.8 K/uL Red Blood Count 3.41 4.7-6.1 M/uL Hemoglobin 10.9 14.0-18.0 g/dL Hematocrit 32.2 42-52 % Mean Corpuscular Volume 94.4 80-100 fL Mean Corpuscular Hemoglobin 32.0 25-34 pg Mean Corpuscular Hemoglobin Concent 33.9 32-36 g/dl RDW Standard Deviation 39.9 36.4-46.3 fL RDW Coefficient of Variation 11.7 11.5-14.5 % Platelet Count 142 130-400 K/uL Mean Platelet Volume 10.6 7.4-10.4 fL Sodium Level 138 136-145 mmol/L Potassium Level 4.6 3.5-5.1 mmol/L Chloride Level 109 98-107 mmol/L Carbon Dioxide Level 21 21-32 mmol/L Anion Gap 8.0 3-11 mmol/L Blood Urea Nitrogen 48 7-18 mg/dl Creatinine 3.41 0.60-1.40 mg/dl Est Creatinine Clear Calc Drug Dose 18.6 ml/min Estimated GFR () 21.0 Estimated GFR (Non- 18.1 BUN/Creatinine Ratio 14.1 10-20 Random Glucose 172 70-99 mg/dl Calcium Level 7.6 8.5-10.1 mg/dl Assessment & Plan 08/18/17- will try full liquids- nephrology checking on pt will cont to follow progress
--- NOTE | 2017-08-18 11:36 | Nephrology Consultation ---
Nephrology Consultation Date & Providers Date of Consultation: Aug 18, 2017. Primary Care Provider: Mike SIMMONS Referring Provider: Reason for Consultation Evaluation management for acute kidney injury with history of chronic kidney disease. History of Present Illness Stacey is a 60-year-old transgender female admitted to the hospital with partial small-bowel obstruction. nephrologic consult was requested as she developed acute kidney injury with history of chronic kidney disease. Electronic medical records including labs and imaging are reviewed in detail during patient's visit. Stacey presented to the hospital yesterday with 2 days history of abdominal pain , cramps and nausea vomiting. She was getting better from a recent upper respiratory infection but did not take any antibiotic. She reports decreased p.o. intake for 2 days. Denies NSAID use. Has been voiding normally. Denies any fever or chills. On admission CT scan of abdomen and pelvis without contrast showed questionable partial small-bowel obstruction. No hydronephrosis. She was evaluated by surgical team and currently being managed conservatively with NPO, IV fluid and antibiotic. She received almost 5 liters of IV fluid and currently on NS running at 100 mL/hour Currently she still feels thirsty but abdominal discomfort for and cramp improve significantly She has history of chronic kidney disease for several years and she has been following with a recycling attendant before. Baseline creatinine has been around 2- 2.5. On admission her creatinine was 2. 5 which worsened to 3.4 this morning. Unclear etiology for chronic kidney disease, she has history of hypertension and HIV and has been on anti-retroviral therapy. She does have high grade proteinuria, HIV nephropathy or nephropathy related to anti-retroviral therapy cannot be excluded. Renal ultrasound showed otherwise normal size kidney but increased cortical echogenicity and thinning of cortex suggestive of chronic kidney disease. She has been non-oliguric since admission and denies any voiding symptoms. She has been avoiding NSAIDs. Has family history of chronic kidney disease and she mentioned her mom was on dialysis before. Allergies Coded Allergies: Penicillins (Verified Allergy, Intermediate, UNKNOWN, 08/17/17) Inpatient Medications Current Inpatient Medications Medications (Trade) Dose Ordered Sig/Carlin Route Start Time Stop Time Status Last Admin Dose Admin Ioversol (Optiray 320) 100 ml UD PRN IV 08/17/17 09:45 08/21/17 09:44 Acetaminophen (Tylenol Tab) 650 mg Q4H PRN PO 08/17/17 13:45 09/16/17 13:44 08/18/17 09:17 650 MG Al Hydrox/Mg Hydrox/Simethicone (Maalox Max Susp) 15 ml Q4H PRN PO 08/17/17 13:45 09/16/17 13:44 Magnesium Hydroxide (Milk Of Magnesia Susp) 30 ml Q6H PRN PO 08/17/17 13:45 09/16/17 13:44 Polyethylene (Miralax Powder Packet) 17 gm DAILY PRN PO 08/17/17 15:00 09/16/17 14:59 Ondansetron HCl (Zofran Inj) 4 mg Q6H PRN IV 08/17/17 13:45 09/16/17 13:44 08/17/17 22:45 4 MG Heparin Sodium (Porcine) (Heparin Sq 5000 Unit/0.5ml) 5,000 unit Q12H SQ 08/17/17 21:00 09/16/17 20:59 08/18/17 09:11 5,000 UNIT Glucose (Glucose 40% Gel) 15-30 GRAMS 15 GRAMS... UD PRN PO 08/17/17 13:45 09/16/17 13:44 Glucose (Glucose Chew Tab) 4-8 Tablets 4 Tabl... UD PRN PO 08/17/17 13:45 09/16/17 13:44 Dextrose (Dextrose 50% 50ML Syringe) 25-50ML OF 50% DW IV FOR... UD PRN IV 08/17/17 13:45 09/16/17 13:44 Glucagon (Glucagon Inj) 1 mg UD PRN SQ 08/17/17 13:45 09/16/17 13:44 Latanoprost (Xalatan Oph Soln) 1 drops HS OPB 08/17/17 21:00 09/16/17 20:59 08/17/17 20:39 1 DROPS Sodium Chloride 1,000 ml @ 100 mls/hr Q10H IV 08/17/17 15:30 09/16/17 15:29 08/18/17 01:22 100 MLS/HR Amlodipine Besylate (Norvasc Tab) 10 mg DAILY PO 08/18/17 09:00 09/17/17 08:59 08/18/17 09:03 10 MG Atorvastatin Calcium (Lipitor Tab) 40 mg QAM PO 08/18/17 09:00 09/17/17 08:59 08/18/17 09:03 40 MG Carvedilol (Coreg Tab) 18.75 mg BID PO 08/17/17 21:00 09/16/17 20:59 08/18/17 09:04 18.75 MG Finasteride (Proscar Tab) 5 mg DAILY PO 08/18/17 09:00 09/17/17 08:59 08/18/17 09:03 5 MG Non-Formulary Medication (Darunavir Ethanolate (Prezista)) 800 mg HS PO 08/17/17 21:00 09/16/17 20:59 UNV Elvitegravir/ Cobicis/Emtricit/ Tenof (Genvoya 320-414-204-10 Mg) 1 tab DAILY PO 08/18/17 09:00 09/17/17 08:59 08/18/17 09:17 1 TAB Morphine Sulfate (MoRPHine SULFATE INJ) 4 mg Q4H PRN IV 08/17/17 14:15 08/31/17 14:14 08/17/17 22:40 4 MG Insulin Aspart (novoLOG ASPART) SLIDING SCALE If C... Q6 SC 08/18/17 00:00 09/16/17 15:59 Family History Diabetes mellitus Hypertension Social History Smoking Status: Unknown if Ever Smoked Smokeless Tobacco Use: No Alcohol Use: none Drug Use: none Marital Status: single Housing Status: other ([facility]) Occupation: unemployed Review of Systems A complete review of systems was performed. Pertinent positives are noted above. All other systems are negative. Physical Exam Date Time Temp Pulse Resp B/P (MAP) Pulse Ox O2 Delivery O2 Flow Rate FiO2 08/18/17 09:02 60 143/78 (99) 92 Room Air 08/18/17 07:45 Room Air 08/18/17 07:02 36.9 59 16 153/73 (99) 95 Nasal Cannula 2.0 08/18/17 00:12 Room Air 08/17/17 23:30 37.2 66 18 139/78 (98) 95 Nasal Cannula 2.0 08/17/17 20:45 69 170/80 (110) 08/17/17 16:00 92 Room Air 08/17/17 15:57 37.5 08/17/17 15:30 37.5 68 18 157/84 92 Room Air 08/17/17 15:15 37.8 68 18 157/84 (108) 92 Room Air 08/17/17 14:26 37.6 66 19 194/91 96 08/17/17 14:17 37.6 66 19 194/91 96 Nasal Cannula 2.0 08/17/17 13:35 37.6 66 19 166/79 93 Nasal Cannula 2.0 08/17/17 13:20 68 08/17/17 12:36 37.6 69 20 179/81 93 Nasal Cannula 2.0 08/17/17 10:43 67 20 180/81 93 Nasal Cannula 2.0 08/17/17 10:09 85 Nasal Cannula 2.0 08/17/17 10:07 67 20 172/78 90 Room Air GENERAL: Middle-aged female, AAA x 3, pleasant, thin built, not in any distress. HEENT: Atraumatic, normocephalic. NECK: Supple, no JVD, no carotid bruit appreciated. ENT: No sinus tenderness MOUTH and THROAT: Moist oral mucosa, no oral ulcer or pharyngeal erythema RESPIRATORY: Normal breathing efforts, no accessory muscle use, clear to auscultation bilaterally, no wheezes or rales. CARDIOVASCULAR: S1, S2 normal, rate rhythm regular. ABDOMEN: Distended, mild diffuse tenderness, decreased bowel sound MUSCULOSKELETAL: No CVA tenderness. No joint swelling, erythema or tenderness. Normal range of motion. SKIN: No skin rash EXTREMITY: No lower extremity edema NEURO: No gross focal neurological deficit, speech fluent. PSYCHIATRY: Normal mood and judgment Laboratory Results Last 24 Hours Test 08/17/17 09:50 08/17/17 09:55 08/17/17 14:21 08/17/17 17:37 Prothrombin Time 10.5 SECONDS Prothromb Time International Ratio 1.0 Sodium Level 136 mmol/L Potassium Level 4.3 mmol/L Chloride Level 105 mmol/L Carbon Dioxide Level 22 mmol/L Anion Gap 9.0 mmol/L Blood Urea Nitrogen 31 mg/dl Creatinine 2.50 mg/dl Est Creatinine Clear Calc Drug Dose 25.3 ml/min Estimated GFR () 30.5 Estimated GFR (Non- 26.3 BUN/Creatinine Ratio 12.3 Random Glucose 180 mg/dl Calcium Level 8.3 mg/dl Phosphorus Level 3.9 mg/dl Magnesium Level 1.9 mg/dl Total Bilirubin 1.3 mg/dl Direct Bilirubin 0.4 mg/dl Aspartate Amino Transf (AST/SGOT) 39 U/L Alanine Aminotransferase (ALT/SGPT) 30 U/L Alkaline Phosphatase 105 U/L Total Protein 8.1 gm/dl Albumin 3.2 gm/dl Lipase 241 U/L Bedside Lactic Acid Venous 2.15 mmol/L Estimated Average Glucose 97 mg/dl Hemoglobin A1c 5.0 % Lactic Acid Level 0.9 mmol/L Urine Color YELLOW Urine Appearance CLEAR Urine pH 6.5 Urine Specific [place] 1.015 Urine Protein 3+ Urine Glucose (UA) TRACE Urine Ketones NEG Urine Occult Blood 2+ Urine Nitrite NEG Urine Bilirubin NEG Urine Urobilinogen NEG Urine Leukocyte Esterase NEG Urine RBC 0-4 /hpf Urine WBC 1-5 /hpf Urine Epithelial Cells >30 /lpf Urine Bacteria NEG Urine Hyaline Casts 1-5 /lpf Urine Granular Casts 1-5 /lpf Urine Random Creatinine 94.6 mg/dl Urine Random Sodium 43 mEq/L Test 08/17/17 18:06 08/18/17 00:06 08/18/17 05:48 08/18/17 06:37 Bedside Glucose 140 mg/dl 137 mg/dl 165 mg/dl White Blood Count 8.84 K/uL Red Blood Count 3.41 M/uL Hemoglobin 10.9 g/dL Hematocrit 32.2 % Mean Corpuscular Volume 94.4 fL Mean Corpuscular Hemoglobin 32.0 pg Mean Corpuscular Hemoglobin Concent 33.9 g/dl RDW Standard Deviation 39.9 fL RDW Coefficient of Variation 11.7 % Platelet Count 142 K/uL Mean Platelet Volume 10.6 fL Sodium Level 138 mmol/L Potassium Level 4.6 mmol/L Chloride Level 109 mmol/L Carbon Dioxide Level 21 mmol/L Anion Gap 8.0 mmol/L Blood Urea Nitrogen 48 mg/dl Creatinine 3.41 mg/dl Est Creatinine Clear Calc Drug Dose 18.6 ml/min Estimated GFR () 21.0 Estimated GFR (Non- 18.1 BUN/Creatinine Ratio 14.1 Random Glucose 172 mg/dl Calcium Level 7.6 mg/dl Impression (1) Acute kidney injury (2) CKD (chronic kidney disease), stage III (3) SBO (small bowel obstruction) (4) Proteinuria (5) Anemia (6) HTN (hypertension) (7) HIV (human immunodeficiency virus infection) Stacey Is a 60-year-old female with past medical history significant for hypertension, chronic kidney disease, HIV admitted to the hospital with SBO. She has stage III chronic kidney disease, baseline creatinine around 2-2.5. On admission creatinine was 2.5 which is close to her baseline however this morning creatinine worsened further to 3.4. Acute kidney injury most likely secondary to ATN with history of significantly decreased p.o. intake with small- bowel obstruction and clinically she was clearly volume depleted. CT abdomen pelvis without any evidence hydronephrosis. She has been voiding normally. Chronic kidney disease could be secondary to hypertensive/diabetic nephropathy but possibility for intrinsic glomerular disease such as FSGS with HIV or nephropathy from anti-retroviral medication remains. She has been non-oliguric , blood pressure seems to be running high. Recommendations --Agree with continuing with IV hydration as patient still clearly seems volume depleted --would hold nephrotoxic medication including TATE-inhibitor/ARB spell --monitor intake and output --with her underlying advanced CKD and high grade proteinuria she is at risk for progressive worsening of renal function, needs to be monitored closely, specially if small-bowel obstruction progress with conservative approach and she need surgical intervention --will check iron study and phosphate Thank you for allowing me to participate in your patient's care. It was a pleasure to see Stacey
[2017-08-18] MEDS ORDERED: NURSING VERBAL MED ORDER ONE ×2 (12:00→21:45)
--- NOTE | 2017-08-18 12:29 | Hospitalist Progress Note ---
Hospitalist Progress Note Date of Service Aug 18, 2017. (Madelyn Buckley ., PAGenetC) Subjective Pt evaluation today including: conversation w/ patient, physical exam, lab review, review of studies, review of inpatient medication list Voiding: no voiding problems Patient resting in bed. Currently NPO. States she is hungry and requesting to advance diet. Notes abdominal pain is significantly improved since admission. No BM today. +flatus. No urinary issues. Patient denies any fever, chills, sweats, lightheadedness, dizziness, vision changes, CP, palpitations, edema, SOB, wheezing, cough, nausea, vomiting, diarrhea, urinary symptoms, melena, numbness/tingling, weakness, muscle/joint pain, anxiety/depression, active bleeding, or new skin discoloration/changes. (Madelyn Buckley ., DAO-C) Medications Current Inpatient Medications Medications (Trade) Dose Ordered Sig/Carlin Route Start Time Stop Time Status Last Admin Dose Admin Ioversol (Optiray 320) 100 ml UD PRN IV 08/17/17 09:45 08/21/17 09:44 Acetaminophen (Tylenol Tab) 650 mg Q4H PRN PO 08/17/17 13:45 09/16/17 13:44 08/18/17 09:17 650 MG Al Hydrox/Mg Hydrox/Simethicone (Maalox Max Susp) 15 ml Q4H PRN PO 08/17/17 13:45 09/16/17 13:44 Magnesium Hydroxide (Milk Of Magnesia Susp) 30 ml Q6H PRN PO 08/17/17 13:45 09/16/17 13:44 Polyethylene (Miralax Powder Packet) 17 gm DAILY PRN PO 08/17/17 15:00 09/16/17 14:59 Ondansetron HCl (Zofran Inj) 4 mg Q6H PRN IV 08/17/17 13:45 09/16/17 13:44 08/17/17 22:45 4 MG Heparin Sodium (Porcine) (Heparin Sq 5000 Unit/0.5ml) 5,000 unit Q12H SQ 08/17/17 21:00 09/16/17 20:59 08/18/17 09:11 5,000 UNIT Glucose (Glucose 40% Gel) 15-30 GRAMS 15 GRAMS... UD PRN PO 08/17/17 13:45 09/16/17 13:44 Glucose (Glucose Chew Tab) 4-8 Tablets 4 Tabl... UD PRN PO 08/17/17 13:45 09/16/17 13:44 Dextrose (Dextrose 50% 50ML Syringe) 25-50ML OF 50% DW IV FOR... UD PRN IV 08/17/17 13:45 09/16/17 13:44 Glucagon (Glucagon Inj) 1 mg UD PRN SQ 08/17/17 13:45 09/16/17 13:44 Latanoprost (Xalatan Oph Soln) 1 drops HS OPB 08/17/17 21:00 09/16/17 20:59 08/17/17 20:39 1 DROPS Sodium Chloride 1,000 ml @ 100 mls/hr Q10H IV 08/17/17 15:30 09/16/17 15:29 08/18/17 11:45 100 MLS/HR Amlodipine Besylate (Norvasc Tab) 10 mg DAILY PO 08/18/17 09:00 09/17/17 08:59 08/18/17 09:03 10 MG Atorvastatin Calcium (Lipitor Tab) 40 mg QAM PO 08/18/17 09:00 09/17/17 08:59 08/18/17 09:03 40 MG Carvedilol (Coreg Tab) 18.75 mg BID PO 08/17/17 21:00 09/16/17 20:59 08/18/17 09:04 18.75 MG Finasteride (Proscar Tab) 5 mg DAILY PO 08/18/17 09:00 09/17/17 08:59 08/18/17 09:03 5 MG Non-Formulary Medication (Darunavir Ethanolate (Prezista)) 800 mg HS PO 08/17/17 21:00 09/16/17 20:59 UNV Elvitegravir/ Cobicis/Emtricit/ Tenof (Genvoya 500-817-383-10 Mg) 1 tab DAILY PO 08/18/17 09:00 09/17/17 08:59 08/18/17 09:17 1 TAB Morphine Sulfate (MoRPHine SULFATE INJ) 4 mg Q4H PRN IV 08/17/17 14:15 08/31/17 14:14 08/17/17 22:40 4 MG Insulin Aspart (novoLOG ASPART) SLIDING SCALE If C... ACHS SC 08/18/17 12:00 09/17/17 11:59 (Madelyn Buckley PA-C) Objective Vital Signs Date Time Temp Pulse Resp B/P (MAP) Pulse Ox O2 Delivery O2 Flow Rate FiO2 08/18/17 09:02 60 143/78 (99) 92 Room Air 08/18/17 07:45 Room Air 08/18/17 07:02 36.9 59 16 153/73 (99) 95 Nasal Cannula 2.0 08/18/17 00:12 Room Air 08/17/17 23:30 37.2 66 18 139/78 (98) 95 Nasal Cannula 2.0 08/17/17 20:45 69 170/80 (110) 08/17/17 16:00 92 Room Air 08/17/17 15:57 37.5 08/17/17 15:30 37.5 68 18 157/84 92 Room Air 08/17/17 15:15 37.8 68 18 157/84 (108) 92 Room Air 08/17/17 14:26 37.6 66 19 194/91 96 08/17/17 14:17 37.6 66 19 194/91 96 Nasal Cannula 2.0 08/17/17 13:35 37.6 66 19 166/79 93 Nasal Cannula 2.0 08/17/17 13:20 68 08/17/17 12:36 37.6 69 20 179/81 93 Nasal Cannula 2.0 (Madelyn Buckley PA-C) Physical Exam General Appearance: no apparent distress Eyes: normal inspection, PERRL ENT: hearing grossly normal Neck: supple Respiratory/Chest: lungs clear, no respiratory distress, no accessory muscle use, + decreased breath sounds (throughout ) Cardiovascular: regular rate, rhythm Abdomen: normal bowel sounds, + distended, + tenderness (mild ttp of diffuse lower abdominal region ) Extremities: no pedal edema, no calf tenderness Neurologic/Psychiatric: alert, normal mood/affect, oriented x 3 Skin: normal color, warm/dry, no rash (Madelyn Buckley, DAO-C) Laboratory Results Last 24 Hours Test 08/17/17 14:21 08/17/17 17:37 08/17/17 18:06 08/18/17 00:06 Estimated Average Glucose 97 mg/dl Hemoglobin A1c 5.0 % Lactic Acid Level 0.9 mmol/L Urine Color YELLOW Urine Appearance CLEAR Urine pH 6.5 Urine Specific [place] 1.015 Urine Protein 3+ Urine Glucose (UA) TRACE Urine Ketones NEG Urine Occult Blood 2+ Urine Nitrite NEG Urine Bilirubin NEG Urine Urobilinogen NEG Urine Leukocyte Esterase NEG Urine RBC 0-4 /hpf Urine WBC 1-5 /hpf Urine Epithelial Cells >30 /lpf Urine Bacteria NEG Urine Hyaline Casts 1-5 /lpf Urine Granular Casts 1-5 /lpf Urine Random Creatinine 94.6 mg/dl Urine Random Sodium 43 mEq/L Bedside Glucose 140 mg/dl 137 mg/dl Test 08/18/17 05:48 08/18/17 06:37 08/18/17 11:36 08/18/17 11:52 Bedside Glucose 165 mg/dl White Blood Count 8.84 K/uL Red Blood Count 3.41 M/uL Hemoglobin 10.9 g/dL Hematocrit 32.2 % Mean Corpuscular Volume 94.4 fL Mean Corpuscular Hemoglobin 32.0 pg Mean Corpuscular Hemoglobin Concent 33.9 g/dl RDW Standard Deviation 39.9 fL RDW Coefficient of Variation 11.7 % Platelet Count 142 K/uL Mean Platelet Volume 10.6 fL Sodium Level 138 mmol/L Potassium Level 4.6 mmol/L Chloride Level 109 mmol/L Carbon Dioxide Level 21 mmol/L Anion Gap 8.0 mmol/L Blood Urea Nitrogen 48 mg/dl Creatinine 3.41 mg/dl Est Creatinine Clear Calc Drug Dose 18.6 ml/min Estimated GFR () 21.0 Estimated GFR (Non- 18.1 BUN/Creatinine Ratio 14.1 Random Glucose 172 mg/dl Calcium Level 7.6 mg/dl Transferrin % Saturation % (Madelyn Buckley, PA-C) Assessment and Plan 61 y/o transgender female with a history of HTN, HLD, sick sinus syndrome s/p pacemaker 04/26/17, DM II, CKD stage III, anemia of chronic disease, and HIV who presented to the ED on 08/16 from [facility] with abdominal pain, nausea and vomiting. Pt afebrile, VSS on arrival. O2 sat did drop to 85%, placed on 2L NC. CXR with possible left base consolidation vs atelectasis. CT abdomen/ pelvis with distal small bowel obstructive change and inflammatory change of the appendix with associated appendicolith. Creatinine 2.50, elevated above baseline. POC lactic acid 2.15. LFTs elevated. ?pSBO vs appendicitis: - Admitted to med/surg - Advancing diet as per surgical recommendations - IV NSS @ 100 ml/hr - Morphine 4 mg IV q4h PRN for pain management - General surgery consulted, appreciate recommendations -- Conservation management at this time -- Slowing advancing diet -- Encouraged ambulation LEEROY on CKD stage III- baseline side piece coverer 2.0-2.5- side piece coverer 3.4 today, anemia of chronic disease- baseline hgb 10: - IVF as above - Avoid nephrotoxic agents and renally dose medications as appropriate - Follow PRP - Nephrology consulted, appreciate recommendations -- Iron study and phosphate pending HTN, HLD, sick sinus syndrome s/p pacemaker 04/26/17: Continue Norvasc 10 mg PO qd, Coreg 18.75 mg PO BID, and Lipitor 40 mg PO qd T2DM- last HgbA1c 5.0%: - Hold Glipizide while inpatient - BSG ACHS and ISS HIV: Continue Genvoya 1 tab PO qd and Prezista 800 mg PO HS BPH: Continue Proscar 5 mg PO qd Glaucoma: Continue Latanoprost drops DVT prophylaxis: Heparin SQ BID Code Status: LEVEL I, FULL Dispo: From [facility] (Madelyn Buckley, MARGE) Reviewed: Pt Seen/Exam by Me (Lissa Johnson MD) History Physician Drop Wire Builder Supervision Note: I interviewed and examined the patient. Discussed with DAO Buckley and agree with findings and plan as documented in the note. Any exceptions or clarifications are listed here: Pt reports feeling like she has to belch but can't get it to come out, feels indigestion this afternoon and evening. Maalox did make it go away for a brief time, but then it returned. SHe did have one episode of N/V with mucus emesis this afternoon, but now no nausea. No hematemesis. Moved bowels a small amount this AM. Denies any further abdominal pain. Not SOB, not coughing, but reports she recently had cold symptoms and was getting over that prior to developing the abd pain. Vitals reviewed, mildly hypoxic but on RA now AAOx3, NAD RRR no mgr Dec BS at bases but otherwise CTAB Abd +BS soft NT ND Ext no edema 61 yo transgender female with a h/o HIV, sinus arrest requiring pacer placement , CKD stage III, anemia of CKD, HTN, HL, glaucoma, BPH, here with PSBO vs enteritis, N/V/abd pain, and LEEROY on CKD stage III. -abd pain resolved, likely viral GE -for GERD symptoms--> start Pepcid 20mg IV bid -continue IVFs and appreciate Nephrology management of LEEROY secondary to ATN from hypovolemia, follow renal function and lytes -infiltrate seen on CXR and at lung bases on CT abd--> no current symptoms of PNA, did have recent "cold symptoms" and maybe resolving PNA, but no need for antibiotics at this time--> suggest repeat CXR in 3-4 weeks to ensure resolution Documented By: Lissa Johnson (Lissa Johnson MD)
[2017-08-18] MEDS: ALUMINUM/MAGNESIUM/SIMETH (MAALOX MAX) 30 ML UDC PO PRN ×2 (14:48→21:37)
[2017-08-18 15:01] VITALS: BP 137/71; PULSE 61; TEMP 36.8; O2SAT 90
[2017-08-18] MEDS ORDERED: FAMOTIDINE IV INJ 20 MG in DEXTROSE 5% 100ML 100 ML IV SCH (18:45)
[2017-08-18] MEDS: FAMOTIDINE IV INJ 20 MG in SYRINGE 3 ML IV SCH (18:55)
[2017-08-18] MEDS: DARUNAVIR ETHANOLATE 800 MG TAB PO SCH (20:49)
[2017-08-18] MEDS: LATANOPROST 0.005% OP SOLN 2.5 ML BTL OPB SCH (20:50)
[2017-08-18 21:00] VITALS: BP 128/76; PULSE 61
[2017-08-18] MEDS: MoRPHine SULFATE 4 MG/ML 1 ML CARP\\VIAL IV PRN (21:41)
[2017-08-18] MEDS ORDERED: ZOLPIDEM TARTRATE 5 MG TAB PO PRN (22:00)
[2017-08-18 23:05] VITALS: BP 119/73; PULSE 60; TEMP 36.5; O2SAT 91
[2017-08-19] VITALS (9 sets, daily range): BP systolic 137–162; BP diastolic 67–82; PULSE 60–85; TEMP 36.3–36.9; O2SAT 91–97
[2017-08-19] MEDS: FAMOTIDINE IV INJ 20 MG in SYRINGE 3 ML IV SCH ×2 (06:27→18:52)
[2017-08-19] MEDS: SODIUM CHLORIDE 0.9% 1000ML 1,000 ML IV SCH ×2 (06:56→17:52)
[2017-08-19 07:12] LABS: HEMOGLOBIN 10.1 g/dL (14.0-18.0); MEAN CELL VOLUME 94.2 fL (80-100); MEAN CORPUSCULAR HEMOGLOBIN 32.8 pg (25-34); MEAN CORPUSCULAR HGB CONC 34.8 g/dl (32-36); MEAN PLATELET VOLUME 10.9 fL (7.4-10.4); PLATELET COUNT 147 K/uL (130-400); RED CELL DISTRIBUTION WIDTH CV 12.4 % (11.5-14.5); RED CELL DISTRIBUTION WIDTH SD 41.4 fL (36.4-46.3); WHITE BLOOD COUNT 9.92 K/uL (4.8-10.8)
--- NOTE | 2017-08-19 07:35 | Surgery Progress Note ---
Surgery Progress Note Date of Service Aug 19, 2017. Subjective afeb, vitals stable small emesis last pm- no bm or significant flatus no emesis otherwise since adm and no significant pain Objective Vital Signs: Date Time Temp Pulse Resp B/P (MAP) Pulse Ox O2 Delivery O2 Flow Rate FiO2 08/18/17 23:20 Nasal Cannula 2.0 08/18/17 23:05 36.5 60 18 119/73 (88) 91 Nasal Cannula 2.0 08/18/17 21:00 61 128/76 (93) 08/18/17 15:35 Room Air 08/18/17 15:01 36.8 61 18 137/71 (93) 90 Room Air 08/18/17 09:02 60 143/78 (99) 92 Room Air 08/18/17 07:45 Room Air General Appearance: no apparent distress Respiratory/Chest: no respiratory distress Abdomen: non tender, + distended, + pertinent finding (minimal bowel sounds) Laboratory Results: Results Past 24 Hours Test 08/18/17 11:52 08/18/17 12:07 08/18/17 16:59 08/18/17 20:29 Range/Units Iron Level 15 35-175 mcg/dl Total Iron Binding Capacity 296 250-450 mcg/dl Transferrin 129 200-360 mg/dl Transferrin % Saturation 8 20-50 % Ferritin 312.1 8.0-388.0 ng/ml Parathyroid Hormone (Intact) 256.6 11.1-79.5 pg/mL Bedside Glucose 123 147 206 70-99 mg/dl Test 08/19/17 06:43 08/19/17 07:20 Range/Units White Blood Count 9.92 4.8-10.8 K/uL Red Blood Count 3.08 4.7-6.1 M/uL Hemoglobin 10.1 14.0-18.0 g/dL Hematocrit 29.0 42-52 % Mean Corpuscular Volume 94.2 80-100 fL Mean Corpuscular Hemoglobin 32.8 25-34 pg Mean Corpuscular Hemoglobin Concent 34.8 32-36 g/dl RDW Standard Deviation 41.4 36.4-46.3 fL RDW Coefficient of Variation 12.4 11.5-14.5 % Platelet Count 147 130-400 K/uL Mean Platelet Volume 10.9 7.4-10.4 fL Assessment & Plan 08/19/17- Persistent distention- ? gastric, ? bowel- atypical for mechanical sbo - will have NG placed, check labs, will possibly need contrast study but will not tolerate po- ask GI to see . may come explor lap if does not resolve 08/18/17- will try full liquids- nephrology checking on pt will cont to follow progress 08/18/17- will try full liquids- nephrology checking on pt will cont to follow progress
[2017-08-19 08:03] LABS: CREATININE 4.61 mg/dl (0.60-1.40); POTASSIUM 4.4 mmol/L (3.5-5.1)
[2017-08-19 08:04] LABS: CALCIUM 7.6 mg/dl (8.5-10.1); PHOSPHORUS 4.3 mg/dl (2.5-4.9)
--- NOTE | 2017-08-19 08:48 | DIAGNOSTIC IMAGING REPORT ---
ABDOMEN 2 VIEWS HISTORY: Abdominal distention. COMPARISON: Abdomen and pelvis CT 08/17/2017. FINDINGS: Nasogastric tube terminates in the stomach. Pacemaker wires are noted. No definite pneumoperitoneum or pneumatosis. Mildly dilated gas-filled loops of small bowel are seen within the midabdomen. There is gas within the nondistended right colon. Small bowel loops measure up to 3.5 cm in diameter. This is similar to the prior study. Small fluid level seen within the distended loops of small bowel. Small left pleural effusion and left basilar densities. IMPRESSION: No change in the small bowel obstruction. Nasogastric tube terminates in the proximal stomach. Electronically signed by: Virgilio Corbett M.D. 08/19/2017 8:47 AM Dictated Date/Time: 08/19/2017 8:45 AM
[2017-08-19] MEDS: INSULIN ASPART 100 UNITS/ML 3 ML PEN SC SCH ×4 (09:16→23:54)
[2017-08-19] MEDS: HEPARIN SOD 5000 UNIT/0.5 ML CARP SQ SCH ×2 (09:16→20:45)
[2017-08-19] MEDS ORDERED: NURSING VERBAL MED ORDER ONE ×2 (11:00→18:30)
--- NOTE | 2017-08-19 11:38 | Hospitalist Progress Note ---
Hospitalist Progress Note Date of Service Aug 19, 2017. Subjective Pt evaluation today including: conversation w/ patient, physical exam, lab review, review of studies, conversation w/ edi consultant, review of inpatient medication list Voiding: no voiding problems Patient resting in bed. NG tube placed this AM. +nausea/vomiting. +abdominal distention/discomfort. Patient denies any fever, chills, sweats, lightheadedness, dizziness, vision changes, CP, palpitations, edema, SOB, wheezing, cough, diarrhea, urinary symptoms, melena, numbness/tingling, weakness, muscle/joint pain, anxiety/ depression, active bleeding, or new skin discoloration/changes. Medications Current Inpatient Medications Medications (Trade) Dose Ordered Sig/Carlin Route Start Time Stop Time Status Last Admin Dose Admin Ioversol (Optiray 320) 100 ml UD PRN IV 08/17/17 09:45 08/21/17 09:44 Acetaminophen (Tylenol Tab) 650 mg Q4H PRN PO 08/17/17 13:45 09/16/17 13:44 08/18/17 09:17 650 MG Al Hydrox/Mg Hydrox/Simethicone (Maalox Max Susp) 15 ml Q4H PRN PO 08/17/17 13:45 09/16/17 13:44 08/18/17 21:37 15 ML Magnesium Hydroxide (Milk Of Magnesia Susp) 30 ml Q6H PRN PO 08/17/17 13:45 09/16/17 13:44 Polyethylene (Miralax Powder Packet) 17 gm DAILY PRN PO 08/17/17 15:00 09/16/17 14:59 Ondansetron HCl (Zofran Inj) 4 mg Q6H PRN IV 08/17/17 13:45 09/16/17 13:44 08/17/17 22:45 4 MG Heparin Sodium (Porcine) (Heparin Sq 5000 Unit/0.5ml) 5,000 unit Q12H SQ 08/17/17 21:00 09/16/17 20:59 08/19/17 09:16 5,000 UNIT Glucose (Glucose 40% Gel) 15-30 GRAMS 15 GRAMS... UD PRN PO 08/17/17 13:45 09/16/17 13:44 Glucose (Glucose Chew Tab) 4-8 Tablets 4 Tabl... UD PRN PO 08/17/17 13:45 09/16/17 13:44 Dextrose (Dextrose 50% 50ML Syringe) 25-50ML OF 50% DW IV FOR... UD PRN IV 08/17/17 13:45 09/16/17 13:44 Glucagon (Glucagon Inj) 1 mg UD PRN SQ 08/17/17 13:45 09/16/17 13:44 Latanoprost (Xalatan Oph Soln) 1 drops HS OPB 08/17/17 21:00 09/16/17 20:59 08/18/17 20:50 1 DROPS Sodium Chloride 1,000 ml @ 100 mls/hr Q10H IV 08/17/17 15:30 09/16/17 15:29 08/19/17 06:56 100 MLS/HR Amlodipine Besylate (Norvasc Tab) 10 mg DAILY PO 08/18/17 09:00 09/17/17 08:59 Future Hold 08/18/17 09:03 10 MG Atorvastatin Calcium (Lipitor Tab) 40 mg QAM PO 08/18/17 09:00 09/17/17 08:59 Future Hold 08/18/17 09:03 40 MG Carvedilol (Coreg Tab) 18.75 mg BID PO 08/17/17 21:00 09/16/17 20:59 08/18/17 20:55 18.75 MG Finasteride (Proscar Tab) 5 mg DAILY PO 08/18/17 09:00 09/17/17 08:59 Future Hold 08/18/17 09:03 5 MG Non-Formulary Medication (Darunavir Ethanolate (Prezista)) 800 mg HS PO 08/17/17 21:00 09/16/17 20:59 UNV Elvitegravir/ Cobicis/Emtricit/ Tenof (Genvoya [id number] Mg) 1 tab DAILY PO 08/18/17 09:00 09/17/17 08:59 08/18/17 09:17 1 TAB Morphine Sulfate (MoRPHine SULFATE INJ) 4 mg Q4H PRN IV 08/17/17 14:15 08/31/17 14:14 08/18/17 21:41 4 MG Famotidine 20 mg/ Syringe 5 ml @ 2.5 mls/min Q12H IV 08/18/17 19:00 09/17/17 18:59 08/19/17 06:27 2.5 MLS/MIN Zolpidem Tartrate (Ambien Tab) 5 mg HS PRN PO 08/18/17 22:00 09/17/17 21:59 Future Hold 08/18/17 23:16 5 MG Hydralazine HCl (HydrALAZINE INJ) 10 mg Q6H PRN IV. 08/19/17 10:30 09/18/17 10:29 Insulin Aspart (novoLOG ASPART) SLIDING SCALE If C... Q6 SC 08/19/17 12:00 09/18/17 11:59 Objective Vital Signs Date Time Temp Pulse Resp B/P (MAP) Pulse Ox O2 Delivery O2 Flow Rate FiO2 08/19/17 07:20 Nasal Cannula 2.0 08/19/17 07:01 36.3 61 18 137/69 (91) 97 Nasal Cannula 2.0 08/18/17 23:20 Nasal Cannula 2.0 08/18/17 23:05 36.5 60 18 119/73 (88) 91 Nasal Cannula 2.0 08/18/17 21:00 61 128/76 (93) 08/18/17 15:35 Room Air 08/18/17 15:01 36.8 61 18 137/71 (93) 90 Room Air Physical Exam General Appearance: no apparent distress Eyes: normal inspection, PERRL ENT: hearing grossly normal, + pertinent finding (NG tube- dark green drainage ) Neck: supple Respiratory/Chest: no respiratory distress, no accessory muscle use, + decreased breath sounds (throughout ), + wheezing (diffuse expiratory wheeze ), + pertinent finding (coarse throughout ) Cardiovascular: regular rate, rhythm Abdomen: + abnormal bowel sounds (hypoactive), + distended, + tenderness ( diffuse ) Extremities: no pedal edema, no calf tenderness Neurologic/Psychiatric: alert, normal mood/affect, oriented x 3 Skin: normal color, warm/dry, no rash Laboratory Results Last 24 Hours Test 08/18/17 11:52 08/18/17 12:07 08/18/17 16:59 08/18/17 20:29 Iron Level 15 mcg/dl Total Iron Binding Capacity 296 mcg/dl Transferrin 129 mg/dl Transferrin % Saturation 8 % Ferritin 312.1 ng/ml Parathyroid Hormone (Intact) 256.6 pg/mL Bedside Glucose 123 mg/dl 147 mg/dl 206 mg/dl Test 08/19/17 06:43 White Blood Count 9.92 K/uL Red Blood Count 3.08 M/uL Hemoglobin 10.1 g/dL Hematocrit 29.0 % Mean Corpuscular Volume 94.2 fL Mean Corpuscular Hemoglobin 32.8 pg Mean Corpuscular Hemoglobin Concent 34.8 g/dl RDW Standard Deviation 41.4 fL RDW Coefficient of Variation 12.4 % Platelet Count 147 K/uL Mean Platelet Volume 10.9 fL Sodium Level 136 mmol/L Potassium Level 4.4 mmol/L Chloride Level 108 mmol/L Carbon Dioxide Level 19 mmol/L Anion Gap 9.0 mmol/L Blood Urea Nitrogen 68 mg/dl Creatinine 4.61 mg/dl Est Creatinine Clear Calc Drug Dose 13.7 ml/min Estimated GFR () 14.6 Estimated GFR (Non- 12.6 BUN/Creatinine Ratio 14.9 Random Glucose 202 mg/dl Calcium Level 7.6 mg/dl Phosphorus Level 4.3 mg/dl Magnesium Level 2.5 mg/dl Assessment and Plan 61 y/o transgender female with a history of HTN, HLD, sick sinus syndrome s/p pacemaker 04/26/17, DM II, CKD stage III, anemia of chronic disease, and HIV who presented to the ED on 08/16 from [facility] with abdominal pain, nausea and vomiting. Pt afebrile, VSS on arrival. O2 sat did drop to 85%, placed on 2L NC. CXR with possible left base consolidation vs atelectasis. CT abdomen/ pelvis with distal small bowel obstructive change and inflammatory change of the appendix with associated appendicolith. Creatinine 2.50, elevated above baseline. POC lactic acid 2.15. LFTs elevated. ?pSBO vs ileus vs appendicitis: - Admitted to med/surg - NPO- NG tube placed on 08/19 - IV NSS @ 100 ml/hr- ECHO from 04/2017 w/ preserved EF - Morphine 4 mg IV q4h PRN for pain management - General surgery consulted, appreciate recommendations- may need exploratory lap if does not improve - GI consulted, appreciate recommendations LEEROY on CKD stage II, likely secondary to ATN- baseline program director cable television 2.0-2.5- program director cable television 4.6 today, anemia of chronic disease- baseline hgb 10: - IVF as above - Avoid nephrotoxic agents and renally dose medications as appropriate - Follow PRP - Nephrology consulted, appreciate recommendations Wheezing: - DuoNebs QID and PRN - O2 protocol- currently on 2L - Continue ambulation throughout halls - CXR on 08/17- ?pulmonary edema vs PNA- afebrile, minimal O2 requirement, no WBC - will continue to follow clinically and repeat CXR/treat PRN HTN, HLD, sick sinus syndrome s/p pacemaker 04/26/17: - Hold Norvasc 10 mg PO qd, and Lipitor 40 mg PO qd due to NPO status - Continue Coreg 18.75 mg PO BID - IV Hydralazine PRN T2DM- last HgbA1c 5.0%: - Hold Glipizide while inpatient - BSG ACHS and ISS HIV: Continue Genvoya 1 tab PO qd and Prezista 800 mg PO HS BPH: Hold Proscar 5 mg PO qd while NPO Glaucoma: Continue Latanoprost drops GI prophylaxis: IV Pepcid DVT prophylaxis: Heparin SQ BID Code Status: LEVEL I, FULL Dispo: From [facility]
--- NOTE | 2017-08-19 11:51 | Nephrology Progress Note ---
Nephrology Progress Note Date of Service Aug 19, 2017. Chief Complaint Evaluation management for acute kidney injury with history of chronic kidney disease. Review of Systems A complete review of systems was performed. Pertinent positives are noted above. All other systems are negative. Vital Signs Last 8 Hrs Date Time Temp Pulse Resp B/P (MAP) Pulse Ox O2 Delivery O2 Flow Rate FiO2 08/19/17 07:01 36.3 61 18 137/69 (91) 97 Nasal Cannula 2.0 Last Recorded Weight Weight (Kilograms): 63.300 Physical Exam GENERAL: middle aged female, AAA x 3, ill -appearing, in mild distress. NECK: Supple, no JVD. RESPIRATORY: Normal breathing efforts, no accessory muscle use, clear to auscultation bilaterally, no wheezes or rales. CARDIOVASCULAR: S1, S2 normal, rate rhythm regular. ABDOMEN: distended, tense, NT, decreased BS EXTREMITY: No lower extremity edema NEURO: speech fluent. PSYCHIATRY: Normal mood and judgment Family History Diabetes mellitus Hypertension Social History Smokeless Tobacco Use: No Alcohol Use: none Drug Use: none Marital Status: single Housing Status: other ([facility]) Occupation: unemployed Laboratory Results Past 24 Hours 08/19/17 06:43 08/19/17 06:43 Test 08/18/17 11:52 08/18/17 12:07 08/18/17 16:59 08/18/17 20:29 Iron Level 15 mcg/dl (35-175) Total Iron Binding Capacity 296 mcg/dl (250-450) Transferrin 129 mg/dl (200-360) Transferrin % Saturation 8 % (20-50) Ferritin 312.1 ng/ml (8.0-388.0) Parathyroid Hormone (Intact) 256.6 pg/mL (11.1-79.5) Bedside Glucose 123 mg/dl (70-99) 147 mg/dl (70-99) 206 mg/dl (70-99) Test 08/19/17 06:43 Red Blood Count 3.08 M/uL (4.7-6.1) Mean Corpuscular Volume 94.2 fL (80-100) Mean Corpuscular Hemoglobin 32.8 pg (25-34) Mean Corpuscular Hemoglobin Concent 34.8 g/dl (32-36) RDW Standard Deviation 41.4 fL (36.4-46.3) RDW Coefficient of Variation 12.4 % (11.5-14.5) Mean Platelet Volume 10.9 fL (7.4-10.4) Anion Gap 9.0 mmol/L (3-11) Est Creatinine Clear Calc Drug Dose 13.7 ml/min Estimated GFR () 14.6 Estimated GFR (Non- 12.6 BUN/Creatinine Ratio 14.9 (10-20) Calcium Level 7.6 mg/dl (8.5-10.1) Phosphorus Level 4.3 mg/dl (2.5-4.9) Magnesium Level 2.5 mg/dl (1.8-2.4) Allergies Coded Allergies: Penicillins (Verified Allergy, Intermediate, UNKNOWN, 08/17/17) Medications Current Inpatient Medications Medications (Trade) Dose Ordered Sig/Carlin Route Start Time Stop Time Status Last Admin Dose Admin Ioversol (Optiray 320) 100 ml UD PRN IV 08/17/17 09:45 08/21/17 09:44 Acetaminophen (Tylenol Tab) 650 mg Q4H PRN PO 08/17/17 13:45 09/16/17 13:44 08/18/17 09:17 650 MG Al Hydrox/Mg Hydrox/Simethicone (Maalox Max Susp) 15 ml Q4H PRN PO 08/17/17 13:45 09/16/17 13:44 08/18/17 21:37 15 ML Magnesium Hydroxide (Milk Of Magnesia Susp) 30 ml Q6H PRN PO 08/17/17 13:45 09/16/17 13:44 Polyethylene (Miralax Powder Packet) 17 gm DAILY PRN PO 08/17/17 15:00 09/16/17 14:59 Ondansetron HCl (Zofran Inj) 4 mg Q6H PRN IV 08/17/17 13:45 09/16/17 13:44 08/17/17 22:45 4 MG Heparin Sodium (Porcine) (Heparin Sq 5000 Unit/0.5ml) 5,000 unit Q12H SQ 08/17/17 21:00 09/16/17 20:59 08/18/17 21:07 5,000 UNIT Glucose (Glucose 40% Gel) 15-30 GRAMS 15 GRAMS... UD PRN PO 08/17/17 13:45 09/16/17 13:44 Glucose (Glucose Chew Tab) 4-8 Tablets 4 Tabl... UD PRN PO 08/17/17 13:45 09/16/17 13:44 Dextrose (Dextrose 50% 50ML Syringe) 25-50ML OF 50% DW IV FOR... UD PRN IV 08/17/17 13:45 09/16/17 13:44 Glucagon (Glucagon Inj) 1 mg UD PRN SQ 08/17/17 13:45 09/16/17 13:44 Latanoprost (Xalatan Oph Soln) 1 drops HS OPB 08/17/17 21:00 09/16/17 20:59 08/18/17 20:50 1 DROPS Sodium Chloride 1,000 ml @ 100 mls/hr Q10H IV 08/17/17 15:30 09/16/17 15:29 08/19/17 06:56 100 MLS/HR Amlodipine Besylate (Norvasc Tab) 10 mg DAILY PO 08/18/17 09:00 09/17/17 08:59 08/18/17 09:03 10 MG Atorvastatin Calcium (Lipitor Tab) 40 mg QAM PO 08/18/17 09:00 09/17/17 08:59 08/18/17 09:03 40 MG Carvedilol (Coreg Tab) 18.75 mg BID PO 08/17/17 21:00 09/16/17 20:59 08/18/17 20:55 18.75 MG Finasteride (Proscar Tab) 5 mg DAILY PO 08/18/17 09:00 09/17/17 08:59 08/18/17 09:03 5 MG Non-Formulary Medication (Darunavir Ethanolate (Prezista)) 800 mg HS PO 08/17/17 21:00 09/16/17 20:59 UNV Elvitegravir/ Cobicis/Emtricit/ Tenof (Genvoya [id number] Mg) 1 tab DAILY PO 08/18/17 09:00 09/17/17 08:59 08/18/17 09:17 1 TAB Morphine Sulfate (MoRPHine SULFATE INJ) 4 mg Q4H PRN IV 08/17/17 14:15 08/31/17 14:14 08/18/17 21:41 4 MG Insulin Aspart (novoLOG ASPART) SLIDING SCALE If C... ACHS SC 08/18/17 12:00 09/17/17 11:59 08/18/17 20:49 1 UNITS Famotidine 20 mg/ Syringe 5 ml @ 2.5 mls/min Q12H IV 08/18/17 19:00 09/17/17 18:59 08/19/17 06:27 2.5 MLS/MIN Zolpidem Tartrate (Ambien Tab) 5 mg HS PRN PO 08/18/17 22:00 09/17/17 21:59 08/18/17 23:16 5 MG Impression (1) Acute kidney injury (2) CKD (chronic kidney disease), stage III (3) SBO (small bowel obstruction) (4) Proteinuria (5) Anemia (6) HTN (hypertension) (7) HIV (human immunodeficiency virus infection) Stacey Is a 60-year-old female with past medical history significant for hypertension, chronic kidney disease, HIV admitted to the hospital with SBO. She has stage III chronic kidney disease, baseline creatinine around 2-2.5. On admission creatinine was 2.5 which is close to her baseline however this morning creatinine worsened further to 3.4. Acute kidney injury most likely secondary to ATN with history of significantly decreased p.o. intake with small- bowel obstruction and clinically she was clearly volume depleted. CT abdomen pelvis without any evidence hydronephrosis. She has been voiding normally. Chronic kidney disease could be secondary to hypertensive/diabetic nephropathy but possibility for intrinsic glomerular disease such as FSGS with HIV or nephropathy from anti-retroviral medication remains. She has been non-oliguric , blood pressure seems to be running high. Recommendations --Renal function continues to decline rapidly suggestive of dense ATN, has decent UO and electrolytes and BP acceptable --Agree with continuing with IV hydration --would hold nephrotoxic medication including TATE-inhibitor/ARB spell --monitor intake and output --may need emergency [employer] if renal function continues to decline or develop significant electrolyte abnormality as no improvement in SBO and may need ex lap --discussed with pt and pt agreeable. will follow
[2017-08-19] MEDS: ALBUT/IPRATROP 3MG/0.5MG NEB 3 ML VIAL INH SCH ×3 (12:00→19:55)
--- NOTE | 2017-08-19 12:22 | Gastrointestinal Consultation ---
Gastrointestinal Consultation Date of Consultation: Aug 19, 2017 Attending Physician: Dr. Elizabeth Consulting Physician: Dr. Ybarra Reason for Consultation: Ileus vs. SBO History of Present Illness Patient is a 61 year transgender female patient who is an inmate at [facility]. She carries a hx of HIV, HTN, SSS S/P pacemaker insertion, DM-2, CKD 3 , chronic anemia. He was admitted yesterday for abdominal pain. Surgery has been asked GI to evaluate SBO vs. ileus. The pt reports that pain began at 4PM on Wednesday, that it steadily increased through that night and he was evaluated the next morning by the medical team at [facility] and was brought to [facility]. She had some nausea and vomiting. His most recent BM was early on 08/16/17, small and formed. She does not recall having fevers, chills or sweats. She denies any episodes of similar pain or abdominal distention. No family hx of IBD. On arrival, non contrast CT abd/pelvis with suggestion of inflammation and the appendix and partial distal small bowel obstruction. Additionally, he has LANNY with Cr increasing to 4.61. She has had mild fevers, max 37.8 but has not had leukocytosis. An NG was placed this morning with 700cc drainage of bilious fluid thus far. No evidence of GI bleeding. Past Medical/Surgical History Medical Problems: (1) Acute renal failure Status: Acute (2) Bradycardia Status: Acute (3) Cardiopulmonary arrest Status: Acute (4) GI bleed Status: Acute (5) Heart block Status: Acute (6) PNA (pneumonia) Status: Acute (7) Renal failure Status: Acute (8) SBO (small bowel obstruction) Status: Acute (9) Sepsis Status: Acute Past Medical History: (1) Abdominal pain (2) Cardiac arrest (3) CKD (chronic kidney disease), stage III (4) CVA (cerebral vascular accident) (5) DM type 2 (diabetes mellitus, type 2) (6) G-6-PD deficiency (7) HIV (human immunodeficiency virus infection) (8) HTN (hypertension) (9) [id number] transgender person Past Surgical History: 1. Cardiac pacemaker 2. No prior abdominal surgeries. Family History Diabetes mellitus Hypertension Social History Smoking Status: Unknown if Ever Smoked Drug Use: none Marital Status: single Housing Status: other Occupation Status: unemployed Allergies Coded Allergies: Penicillins (Verified Allergy, Intermediate, UNKNOWN, 08/17/17) Current Medications Home Meds and Scripts Medications Dose Route/Sig Max Daily Dose Days Date Category Glucotrol (Glipizide) 10 Mg Tab 10 Mg PO BID 08/17/17 Reported Bumex (Bumetanide) 0.5 Mg Tab 0.5 Mg PO DAILY 08/17/17 Reported Carvedilol 12.5 Mg Tab 18.75 Mg PO BID 30 04/25/17 Rx Ferrous Sulfate 325 Mg Tab 325 Mg PO BIDM 30 04/25/17 Rx Climara (Estradiol) 0.1 Mg/24 Hr Dis 0.1 Mg TOP DAILY 04/16/17 Reported Multivitamin (Multivitamins) Tab 1 Tab PO DAILY 04/16/17 Reported Bd Glucose (Glucose) 1 Tab Chew 4 Mg PO QID PRN 04/16/17 Reported Norvasc (Amlodipine Besylate) 10 Mg Tab 1 Tab PO DAILY 30 09/30/16 Rx Genvoya [id number] mg (Nhaqhawtzydy-Zvrwhxlfml-Sddtda) 1 Tab Tab 1 Tab PO DAILY 09/28/16 Reported Atorvastatin Calcium (Atorvastatin) 40 Mg Tab 40 Mg PO QAM 30 01/08/16 Rx Prezista (Darunavir Ethanolate) 800 Mg Tab 800 Mg PO HS 01/06/16 Reported Xalatan 0.005% Oph (Latanoprost) Soln 1 Drop OPB HS 01/06/16 Reported Proscar (Finasteride) 5 Mg Tab 5 Mg PO DAILY 01/06/16 Reported Review of Systems Constitutional: No fever, No chills, No sweats, No weight loss, No weakness Eyes: No eye pain, No redness ENT: No sore throat, No trouble swallowing, No pain on swallowing Respiratory: + cough, + problem reported (yellow nasal discharge), No wheezing , No shortness of breath, No dyspnea on exertion Cardiac: No chest pain, No edema, No palpitations Abdomen: + see HPI, + pain, + nausea, + vomiting, + problem reported ( distention) Neuro: No memory loss, No weakness, No numbness/tingling, No vertigo, No balance problems Psych: No depression symptoms, No anxiety, No insomnia Heme: No abnormal bleeding/bruising, No night sweats Endo: No excessive thirst, No excessive urination Skin: No rash, No itch, No new/changing skin lesions, No jaundice Physical Exam Date Time Temp Pulse Resp B/P (MAP) Pulse Ox O2 Delivery O2 Flow Rate FiO2 08/19/17 07:20 Nasal Cannula 2.0 08/19/17 07:01 36.3 61 18 137/69 (91) 97 Nasal Cannula 2.0 08/18/17 23:20 Nasal Cannula 2.0 08/18/17 23:05 36.5 60 18 119/73 (88) 91 Nasal Cannula 2.0 08/18/17 21:00 61 128/76 (93) 08/18/17 15:35 Room Air 08/18/17 15:01 36.8 61 18 137/71 (93) 90 Room Air General Appearance: no apparent distress Eyes: normal inspection, EOMI ENT: + pertinent finding (NG tube draining bilious fluid) Neck: supple, no adenopathy, thyroid normal Respiratory/Chest: chest non-tender, lungs clear, normal breath sounds, no accessory muscle use Cardiovascular: regular rate, rhythm, no JVD, no murmur Abdomen: no organomegaly, + abnormal bowel sounds (hypoactive, but present), + distended (moderate, but not taunt), + tenderness (throughout the entire abdomen ) Extremities: normal inspection, no pedal edema, normal capillary refill Neurologic/Psych: alert, normal mood/affect, oriented x 3 Skin: normal color, no jaundice, warm/dry, no rash Laboratory Results Last 24 Hours Test 08/18/17 11:52 08/18/17 12:07 08/18/17 16:59 08/18/17 20:29 Iron Level 15 mcg/dl Total Iron Binding Capacity 296 mcg/dl Transferrin 129 mg/dl Transferrin % Saturation 8 % Ferritin 312.1 ng/ml Parathyroid Hormone (Intact) 256.6 pg/mL Bedside Glucose 123 mg/dl 147 mg/dl 206 mg/dl Test 08/19/17 06:43 White Blood Count 9.92 K/uL Red Blood Count 3.08 M/uL Hemoglobin 10.1 g/dL Hematocrit 29.0 % Mean Corpuscular Volume 94.2 fL Mean Corpuscular Hemoglobin 32.8 pg Mean Corpuscular Hemoglobin Concent 34.8 g/dl RDW Standard Deviation 41.4 fL RDW Coefficient of Variation 12.4 % Platelet Count 147 K/uL Mean Platelet Volume 10.9 fL Sodium Level 136 mmol/L Potassium Level 4.4 mmol/L Chloride Level 108 mmol/L Carbon Dioxide Level 19 mmol/L Anion Gap 9.0 mmol/L Blood Urea Nitrogen 68 mg/dl Creatinine 4.61 mg/dl Est Creatinine Clear Calc Drug Dose 13.7 ml/min Estimated GFR () 14.6 Estimated GFR (Non- 12.6 BUN/Creatinine Ratio 14.9 Random Glucose 202 mg/dl Calcium Level 7.6 mg/dl Phosphorus Level 4.3 mg/dl Magnesium Level 2.5 mg/dl Non contrast CT abd/pelvis on 08/18: 1. Bibasilar parenchymal infiltrates with a pericardial effusion having a maximum thickness of 11 mm. 2. Findings consistent with distal small bowel obstructive change with potential underlying primary or reactive inflammatory change of the appendix with a 6 mm associated appendicolith. 3. Small amount of free fluid within the right and to a lesser extent left paracolic gutter. 4. No evidence for well-defined abscess or collection within limitations of a completely unenhanced study. Impression Patient is a 61 year old male with abdominal distention. On imaging, there is suggestion of a partial SBO and terminal ileum wall thickening. He may have an ileus related to current illness though a URI rarely causes ileus. If this is not an ileus but is a partial small bowel obstruction. Differentials included are likely infectious vs. inflammatory or adhesive disease. Her lack of prior similar symptoms argues against IBD. Normal WBC and no diarrhea argues against diarrhea. She has never had prior abdominal surgeries, thus adhesive disease in possible but less likely. Plan 1. Will review CT images. 2. Pt would likely benefit from a colonoscopy to r/o Crohn's, but not during this acute episode of illness. 3. For now, agree with NG tube for decompression and NPO. Addendum after Dr. Ybarra reviewed CT films with radiology: images appear most like infection such as yersinia. With his hx of HIV, he is at increased risk for infection/colitis. Will check stool studies (pending). Recommend broad spectrum antibiotics: Cipro, Flagyl IV. ATTESTATION: I have performed a history and physical examination of this patient and reviewed the electronic record. Specifically, on physical examination there is an NG tube in place, abdomen is soft with mild distention and normal bowel sounds. I have discussed the case with LUCIEN Mcwilliams. The above note reflects my findings, conclusions, and recommendations. Forest Ybarra MD
[2017-08-19] MEDS: CARVEDILOL 12.5 MG TAB PO SCH ×2 (12:31→20:46)
[2017-08-19] MEDS ORDERED: CIPROFLOXACIN CONSULT ACTIVE PRN (14:15)
[2017-08-19] MEDS: METRONIDAZOLE / NSS 500 MG in PREMIXED NSS 100 ML IV SCH ×2 (14:49→21:56)
[2017-08-19] MEDS: CIPROFLOXACIN / D5W 400 MG in PREMIXED IN D5W 200 ML IV SCH (16:23)
[2017-08-19] MEDS ORDERED: COUGH DROP (SUGAR FREE) LOZ 24 LOZ/1 BOX PO PRN (18:45)
[2017-08-19] MEDS: LATANOPROST 0.005% OP SOLN 2.5 ML BTL OPB SCH (20:45)
[2017-08-20] VITALS (20 sets, daily range): BP systolic 116–163; BP diastolic 57–78; PULSE 60–68; TEMP 36.5–37; O2SAT 91–99
[2017-08-20] MEDS: SODIUM CHLORIDE 0.9% 1000ML 1,000 ML IV SCH ×3 (04:05→16:21)
[2017-08-20] MEDS: INSULIN ASPART 100 UNITS/ML 3 ML PEN SC SCH ×4 (05:58→23:29)
[2017-08-20] MEDS: FAMOTIDINE IV INJ 20 MG in SYRINGE 3 ML IV SCH ×2 (06:18→18:33)
[2017-08-20] MEDS: METRONIDAZOLE / NSS 500 MG in PREMIXED NSS 100 ML IV SCH ×3 (06:18→22:26)
--- NOTE | 2017-08-20 07:02 | Surgery Progress Note ---
Surgery Progress Note Date of Service Aug 20, 2017. Subjective NG bothering him- said she passed flatus- no bm distended, NG- 230/sh bilious output Objective Vital Signs: Date Time Temp Pulse Resp B/P (MAP) Pulse Ox O2 Delivery O2 Flow Rate FiO2 08/19/17 23:01 36.9 67 18 157/77 (103) 91 Nasal Cannula 1.0 08/19/17 20:47 69 162/76 (104) 08/19/17 20:00 91 Nasal Cannula 2.0 08/19/17 19:55 81 16 96 Nasal Cannula 2.0 08/19/17 19:02 144/67 (92) 08/19/17 16:00 92 Nasal Cannula 2.0 08/19/17 15:34 36.5 68 18 161/78 (105) 91 Nasal Cannula 2.0 08/19/17 15:34 85 16 95 Nasal Cannula 2.0 08/19/17 12:30 60 153/82 (105) 08/19/17 07:20 Nasal Cannula 2.0 08/19/17 07:01 36.3 61 18 137/69 (91) 97 Nasal Cannula 2.0 General Appearance: no apparent distress Respiratory/Chest: no respiratory distress Abdomen: non tender, + distended, + pertinent finding (decreased bowel sounds) Laboratory Results: Results Past 24 Hours Test 08/19/17 08:29 08/19/17 12:08 08/19/17 18:01 08/19/17 23:51 Range/Units Bedside Glucose 185 152 154 154 70-99 mg/dl Test 08/20/17 04:44 08/20/17 05:56 Range/Units Bedside Glucose 163 70-99 mg/dl Assessment & Plan 08/20/17- GI evaluation noted- on IV atbx- distention of abd same or worse will try to give some contrast via NG and rescan pt- no IV contrast considering abd exploration- will also discuss with GI 08/19/17- Persistent distention- ? gastric, ? bowel- atypical for mechanical sbo - will have NG placed, check labs, will possibly need contrast study but will not tolerate po- ask GI to see . may come explor lap if does not resolve 08/18/17- will try full liquids- nephrology checking on pt will cont to follow progress 08/19/17- Persistent distention- ? gastric, ? bowel- atypical for mechanical sbo - will have NG placed, check labs, will possibly need contrast study but will not tolerate po- ask GI to see . may come explor lap if does not resolve 08/18/17- will try full liquids- nephrology checking on pt will cont to follow progress
[2017-08-20] MEDS: ALBUT/IPRATROP 3MG/0.5MG NEB 3 ML VIAL INH SCH (07:36)
[2017-08-20 07:44] LABS: HEMATOCRIT 29.1 % (42-52); HEMOGLOBIN 10.2 g/dL (14.0-18.0); MEAN CELL VOLUME 92.7 fL (80-100); MEAN CORPUSCULAR HEMOGLOBIN 32.5 pg (25-34); MEAN CORPUSCULAR HGB CONC 35.1 g/dl (32-36); MEAN PLATELET VOLUME 10.6 fL (7.4-10.4); PLATELET COUNT 186 K/uL (130-400); RED CELL DISTRIBUTION WIDTH CV 12.4 % (11.5-14.5); WHITE BLOOD COUNT 9.34 K/uL (4.8-10.8)
[2017-08-20 08:31] LABS: CALCIUM 8.2 mg/dl (8.5-10.1); CREATININE 4.99 mg/dl (0.60-1.40); POTASSIUM 4.2 mmol/L (3.5-5.1)
[2017-08-20] MEDS ORDERED: PROPOFOL IV EMULSION 10 MG/ML 20 ML VIAL IV ONE (08:40)
[2017-08-20] MEDS ORDERED: ROCURONIUM BROMID 50MG/5ML SYR ONE (08:40)
[2017-08-20] MEDS ORDERED: SUCCINYLCHOLINE CHLORIDE 20 MG/ML 10 ML VIAL IV ONE (08:40)
[2017-08-20] MEDS ORDERED: GLYCOPYRROLATE INJ 0.2 MG/ML VIAL ONE (08:40)
[2017-08-20] MEDS ORDERED: NEOSTIGMINE METHYLSULFATE 5 MG/5 ML SYR ONE ×2 (08:40→13:54)
[2017-08-20] MEDS ORDERED: DEXAMETHASONE SOD INJ 4 MG/ML VIAL ONE (08:40)
[2017-08-20] MEDS ORDERED: FENTANYL CITRATE INJ 50 MCG/1 ML 2 ML VIAL ONE ×2 (08:40→08:41)
[2017-08-20] MEDS ORDERED: LIDOCAINE HCL 2% 2 ML VIAL (20MG/ML) ONE (08:40)
[2017-08-20] MEDS ORDERED: MIDAZOLAM HCL 1 MG/ML 2ML VIAL ONE (08:40)
[2017-08-20] MEDS ORDERED: ONDANSETRON INJ 2 MG/ML 2 ML VIAL ONE (08:40)
--- NOTE | 2017-08-20 09:36 | Nephrology Progress Note ---
Nephrology Progress Note Date of Service Aug 20, 2017. Chief Complaint Follow-up for acute kidney injury with history of chronic kidney disease. Princess Ibarra was seen and examined in her room this morning. Awake and alert, denies any specific symptoms. Abdominal distension and discomfort seems to have worsened somewhat. Did not have bowel movement, but passing gas. No fever or chills. Continues to have decent urine output but renal function continues to decline, creatinine 5.0. Review of Systems A complete review of systems was performed. Pertinent positives are noted above. All other systems are negative. Vital Signs Last 8 Hrs Date Time Temp Pulse Resp B/P (MAP) Pulse Ox O2 Delivery O2 Flow Rate FiO2 08/20/17 07:36 63 16 93 Nasal Cannula 1.0 08/20/17 07:05 36.5 68 18 163/73 (103) 91 Nasal Cannula 2.0 Last Recorded Weight Weight (Kilograms): 63.300 Physical Exam GENERAL: middle aged female, AAA x 3, ill -appearing, in mild distress. NECK: Supple, no JVD. RESPIRATORY: Normal breathing efforts, no accessory muscle use, clear to auscultation bilaterally, no wheezes or rales. CARDIOVASCULAR: S1, S2 normal, rate rhythm regular. ABDOMEN: distended, tense, NT, decreased BS EXTREMITY: No lower extremity edema NEURO: speech fluent. PSYCHIATRY: Normal mood and judgment Family History Diabetes mellitus Hypertension Social History Smokeless Tobacco Use: No Alcohol Use: none Drug Use: none Marital Status: single Housing Status: other ([facility]) Occupation: unemployed Laboratory Results Past 24 Hours 08/20/17 07:25 Test 08/19/17 08:29 08/19/17 12:08 08/19/17 18:01 08/19/17 23:51 Bedside Glucose 185 mg/dl (70-99) 152 mg/dl (70-99) 154 mg/dl (70-99) 154 mg/dl (70-99) Test 08/20/17 05:56 08/20/17 07:25 Bedside Glucose 163 mg/dl (70-99) Red Blood Count 3.14 M/uL (4.7-6.1) Mean Corpuscular Volume 92.7 fL (80-100) Mean Corpuscular Hemoglobin 32.5 pg (25-34) Mean Corpuscular Hemoglobin Concent 35.1 g/dl (32-36) RDW Standard Deviation 42.0 fL (36.4-46.3) RDW Coefficient of Variation 12.4 % (11.5-14.5) Mean Platelet Volume 10.6 fL (7.4-10.4) Allergies Coded Allergies: Penicillins (Verified Allergy, Intermediate, UNKNOWN, 08/17/17) Medications Current Inpatient Medications Medications (Trade) Dose Ordered Sig/Carlin Route Start Time Stop Time Status Last Admin Dose Admin Ioversol (Optiray 320) 100 ml UD PRN IV 08/17/17 09:45 08/21/17 09:44 Acetaminophen (Tylenol Tab) 650 mg Q4H PRN PO 08/17/17 13:45 09/16/17 13:44 08/18/17 09:17 650 MG Al Hydrox/Mg Hydrox/Simethicone (Maalox Max Susp) 15 ml Q4H PRN PO 08/17/17 13:45 09/16/17 13:44 08/18/17 21:37 15 ML Magnesium Hydroxide (Milk Of Magnesia Susp) 30 ml Q6H PRN PO 08/17/17 13:45 09/16/17 13:44 Polyethylene (Miralax Powder Packet) 17 gm DAILY PRN PO 08/17/17 15:00 09/16/17 14:59 Ondansetron HCl (Zofran Inj) 4 mg Q6H PRN IV 08/17/17 13:45 09/16/17 13:44 08/17/17 22:45 4 MG Heparin Sodium (Porcine) (Heparin Sq 5000 Unit/0.5ml) 5,000 unit Q12H SQ 08/17/17 21:00 09/16/17 20:59 08/19/17 20:45 5,000 UNIT Glucose (Glucose 40% Gel) 15-30 GRAMS 15 GRAMS... UD PRN PO 08/17/17 13:45 09/16/17 13:44 Glucose (Glucose Chew Tab) 4-8 Tablets 4 Tabl... UD PRN PO 08/17/17 13:45 09/16/17 13:44 Dextrose (Dextrose 50% 50ML Syringe) 25-50ML OF 50% DW IV FOR... UD PRN IV 08/17/17 13:45 09/16/17 13:44 Glucagon (Glucagon Inj) 1 mg UD PRN SQ 08/17/17 13:45 09/16/17 13:44 Latanoprost (Xalatan Oph Soln) 1 drops HS OPB 08/17/17 21:00 09/16/17 20:59 08/19/17 20:45 1 DROPS Sodium Chloride 1,000 ml @ 100 mls/hr Q10H IV 08/17/17 15:30 09/16/17 15:29 08/20/17 04:05 100 MLS/HR Amlodipine Besylate (Norvasc Tab) 10 mg DAILY PO 08/18/17 09:00 09/17/17 08:59 Future Hold 08/18/17 09:03 10 MG Atorvastatin Calcium (Lipitor Tab) 40 mg QAM PO 08/18/17 09:00 09/17/17 08:59 Future Hold 08/18/17 09:03 40 MG Carvedilol (Coreg Tab) 18.75 mg BID PO 08/17/17 21:00 09/16/17 20:59 08/19/17 20:46 18.75 MG Finasteride (Proscar Tab) 5 mg DAILY PO 08/18/17 09:00 09/17/17 08:59 Future Hold 08/18/17 09:03 5 MG Non-Formulary Medication (Darunavir Ethanolate (Prezista)) 800 mg HS PO 08/17/17 21:00 09/16/17 20:59 UNV Elvitegravir/ Cobicis/Emtricit/ Tenof (Genvoya [phone] Mg) 1 tab DAILY PO 08/18/17 09:00 09/17/17 08:59 Future Hold 08/18/17 09:17 1 TAB Morphine Sulfate (MoRPHine SULFATE INJ) 4 mg Q4H PRN IV 08/17/17 14:15 08/31/17 14:14 08/18/17 21:41 4 MG Famotidine 20 mg/ Syringe 5 ml @ 2.5 mls/min Q12H IV 08/18/17 19:00 09/17/17 18:59 08/20/17 06:18 2.5 MLS/MIN Zolpidem Tartrate (Ambien Tab) 5 mg HS PRN PO 08/18/17 22:00 2/9/18 21:59 Future Hold 08/18/17 23:16 5 MG Hydralazine HCl (HydrALAZINE INJ) 10 mg Q6H PRN IV. 08/19/17 10:30 09/18/17 10:29 Insulin Aspart (novoLOG ASPART) SLIDING SCALE If C... Q6 SC 08/19/17 12:00 09/18/17 11:59 Albuterol/ Ipratropium (Duoneb) 3 ml QIDR INH 08/19/17 12:00 09/18/17 11:59 08/20/17 07:36 3 ML Ciprofloxacin/ Dextrose 400 mg/ Prmx 200 ml @ 100 mls/hr Q24H IV 08/19/17 16:00 08/29/17 15:59 08/19/17 16:23 100 MLS/HR Metronidazole 500 mg/Prmx 100 ml @ 100 mls/hr Q8H IV 08/19/17 14:30 08/29/17 14:29 08/20/17 06:18 100 MLS/HR Ciprofloxacin (Consult) 1 ea UD PRN N/A 08/19/17 14:15 09/18/17 14:14 Menthol (Nice Nory) 1 nory Q1H PRN PO 08/19/17 18:45 09/18/17 18:44 08/19/17 18:53 1 NORY Impression (1) Acute kidney injury (2) CKD (chronic kidney disease), stage III (3) SBO (small bowel obstruction) (4) Proteinuria (5) Anemia (6) HTN (hypertension) (7) HIV (human immunodeficiency virus infection) Stacey Is a 60-year-old female with past medical history significant for hypertension, chronic kidney disease, HIV admitted to the hospital with SBO. She has stage III chronic kidney disease, baseline creatinine around 2-2.5. On admission creatinine was 2.5 which is close to her baseline however this morning creatinine worsened further to 3.4. Acute kidney injury most likely secondary to ATN with history of significantly decreased p.o. intake with small- bowel obstruction and clinically she was clearly volume depleted. CT abdomen pelvis without any evidence hydronephrosis. She has been voiding normally. Chronic kidney disease could be secondary to hypertensive/diabetic nephropathy but possibility for intrinsic glomerular disease such as FSGS with HIV or nephropathy from anti-retroviral medication remains. She has been non-oliguric , blood pressure seems to be running high. Recommendations --renal function continues to decline however volume status seems stable and electrolytes are reasonablly acceptable --Agree with continuing with IV hydration as patient has been NPO although IV fluid may not be as helpful as urine output decreasing and we may need to be careful with volume status --would hold nephrotoxic medication including TATE-inhibitor/ARB spell --monitor intake and output --will decide on need for renal replacement therapy depending on CT abdomen and need for exploratory laparotomy, there is no emergency need right now however will monitor closely. --discussed with pt and pt agreeable. will follow
--- NOTE | 2017-08-20 09:38 | DIAGNOSTIC IMAGING REPORT ---
CT SCAN OF THE ABDOMEN AND PELVIS WITHOUT CONTRAST CLINICAL HISTORY: Small bowel obstruction. Possible enteritis. COMPARISON STUDY: CT scan dated 08/17/2017 TECHNIQUE: CT scan of the abdomen and pelvis was performed from the lung bases to the proximal femurs. Images are reviewed in the axial, sagittal, and coronal planes. IV contrast was not administered for this examination. A dose lowering technique was utilized adhering to the principles of ALARA. CT DOSE: 314.11 mGycm FINDINGS: Lower chest: There is bibasal atelectasis/consolidation. The heart is enlarged with a [id number] pericardial effusion. Liver: The unenhanced liver is normal in size, contour, and attenuation. There is no intrahepatic biliary ductal dilatation. Gallbladder: Cholelithiasis Spleen: Normal in size and attenuation. Pancreas: Unremarkable. Adrenal glands: Unremarkable. Kidneys: The unenhanced kidneys are normal in size without hydronephrosis. There is no contour deforming renal mass lesion. No renal calculi are identified. Bowel: There is progressive small bowel dilatation with fluid-filled small bowel loops. The distal small bowel and colon are normal caliber. The findings are indicative of a high-grade small bowel obstruction. No pneumatosis is visualized. No portal venous gas is visualized. This should be noted that bowel evaluation is difficult due to the lack of intravenously administered contrast, as well as given the paucity of intra-abdominal fat. Peritoneum: There is no intraperitoneal free air or abdominal ascites. Vasculature: The abdominal aorta is normal in course and caliber. Adenopathy: None. Pelvic viscera: The bladder, and pelvic viscera are unremarkable. Skeletal structures: No destructive osseous lesions are seen. IMPRESSION: 1. Worsening high grade small bowel obstruction with progressive small bowel dilatation. 2. Persistent pericardial effusion 3. Worsening bibasilar atelectasis/consolidation. 4. Cholelithiasis Electronically signed by: Barron Alonso M.D. 08/20/2017 9:37 AM Dictated Date/Time: 08/20/2017 9:30 AM
[2017-08-20] MEDS: CARVEDILOL 12.5 MG TAB PO SCH ×2 (09:46→20:35)
[2017-08-20] MEDS: HEPARIN SOD 5000 UNIT/0.5 ML CARP SQ SCH ×2 (09:48→20:36)
[2017-08-20] MEDS ORDERED: CEFOXITIN SOD 1 GM VIAL ONE ×3 (10:47→12:00)
[2017-08-20] MEDS ORDERED: ALBUMIN HUMAN 5% 12.5 GM/250 ML VIAL IV ONE (11:32)
[2017-08-20] MEDS ORDERED: ALBUT/IPRATROP 3MG/0.5MG NEB 3 ML VIAL INH PRN (12:00)
--- NOTE | 2017-08-20 13:04 | Gastroenterology Progress Note ---
Progress Note Date of Service: Aug 20, 2017 Subjective Pt evaluation today including: conversation w/ patient, physical exam, chart review, lab review, review of studies, review of inpatient medication list Stacey is a 61 yr old transgender female from [facility] admitted on 08/[address] with terminal ileitis, question partial SBO. Today's CT with worsening of the small bowel dilation. Review of Systems Constitutional: No fever ENT: No hearing loss Respiratory: + cough Cardiac: No chest pain Abdomen: + pain, + constipation (no BM x 2 days), No nausea, No vomiting, No diarrhea Male : No dysuria Neuro: No memory loss Psych: No depression symptoms Heme: No abnormal bleeding/bruising Skin: No rash Medications Current Inpatient Medications Medications (Trade) Dose Ordered Sig/Carlin Route Start Time Stop Time Status Last Admin Dose Admin Ioversol (Optiray 320) 100 ml UD PRN IV 08/17/17 09:45 08/21/17 09:44 Acetaminophen (Tylenol Tab) 650 mg Q4H PRN PO 08/17/17 13:45 09/16/17 13:44 08/18/17 09:17 650 MG Al Hydrox/Mg Hydrox/Simethicone (Maalox Max Susp) 15 ml Q4H PRN PO 08/17/17 13:45 09/16/17 13:44 08/18/17 21:37 15 ML Magnesium Hydroxide (Milk Of Magnesia Susp) 30 ml Q6H PRN PO 08/17/17 13:45 09/16/17 13:44 Polyethylene (Miralax Powder Packet) 17 gm DAILY PRN PO 08/17/17 15:00 09/16/17 14:59 Ondansetron HCl (Zofran Inj) 4 mg Q6H PRN IV 08/17/17 13:45 09/16/17 13:44 08/17/17 22:45 4 MG Heparin Sodium (Porcine) (Heparin Sq 5000 Unit/0.5ml) 5,000 unit Q12H SQ 08/17/17 21:00 09/16/17 20:59 08/20/17 09:48 5,000 UNIT Glucose (Glucose 40% Gel) 15-30 GRAMS 15 GRAMS... UD PRN PO 08/17/17 13:45 09/16/17 13:44 Glucose (Glucose Chew Tab) 4-8 Tablets 4 Tabl... UD PRN PO 08/17/17 13:45 09/16/17 13:44 Dextrose (Dextrose 50% 50ML Syringe) 25-50ML OF 50% DW IV FOR... UD PRN IV 08/17/17 13:45 09/16/17 13:44 Glucagon (Glucagon Inj) 1 mg UD PRN SQ 08/17/17 13:45 09/16/17 13:44 Latanoprost (Xalatan Oph Soln) 1 drops HS OPB 08/17/17 21:00 09/16/17 20:59 08/19/17 20:45 1 DROPS Sodium Chloride 1,000 ml @ 100 mls/hr Q10H IV 08/17/17 15:30 09/16/17 15:29 08/20/17 04:05 100 MLS/HR Amlodipine Besylate (Norvasc Tab) 10 mg DAILY PO 08/18/17 09:00 09/17/17 08:59 Future Hold 08/18/17 09:03 10 MG Atorvastatin Calcium (Lipitor Tab) 40 mg QAM PO 08/18/17 09:00 09/17/17 08:59 Future Hold 08/18/17 09:03 40 MG Carvedilol (Coreg Tab) 18.75 mg BID PO 08/17/17 21:00 09/16/17 20:59 08/20/17 09:46 18.75 MG Finasteride (Proscar Tab) 5 mg DAILY PO 08/18/17 09:00 09/17/17 08:59 Future Hold 08/18/17 09:03 5 MG Non-Formulary Medication (Darunavir Ethanolate (Prezista)) 800 mg HS PO 08/17/17 21:00 09/16/17 20:59 UNV Elvitegravir/ Cobicis/Emtricit/ Tenof (Genvoya [id number] Mg) 1 tab DAILY PO 08/18/17 09:00 09/17/17 08:59 Future Hold 08/18/17 09:17 1 TAB Morphine Sulfate (MoRPHine SULFATE INJ) 4 mg Q4H PRN IV 08/17/17 14:15 08/31/17 14:14 08/18/17 21:41 4 MG Famotidine 20 mg/ Syringe 5 ml @ 2.5 mls/min Q12H IV 08/18/17 19:00 09/17/17 18:59 08/20/17 06:18 2.5 MLS/MIN Zolpidem Tartrate (Ambien Tab) 5 mg HS PRN PO 08/18/17 22:00 09/17/17 21:59 Future Hold 08/18/17 23:16 5 MG Hydralazine HCl (HydrALAZINE INJ) 10 mg Q6H PRN IV. 08/19/17 10:30 09/18/17 10:29 Insulin Aspart (novoLOG ASPART) SLIDING SCALE If C... Q6 SC 08/19/17 12:00 09/18/17 11:59 Ciprofloxacin/ Dextrose 400 mg/ Prmx 200 ml @ 100 mls/hr Q24H IV 08/19/17 16:00 08/29/17 15:59 08/19/17 16:23 100 MLS/HR Metronidazole 500 mg/Prmx 100 ml @ 100 mls/hr Q8H IV 08/19/17 14:30 08/29/17 14:29 08/20/17 06:18 100 MLS/HR Ciprofloxacin (Consult) 1 ea UD PRN N/A 08/19/17 14:15 09/18/17 14:14 Menthol (Nice Nory) 1 nory Q1H PRN PO 08/19/17 18:45 09/18/17 18:44 08/19/17 18:53 1 NORY Albuterol/ Ipratropium (Duoneb) 3 ml Q6H PRN INH 08/20/17 12:00 09/18/17 11:59 Objective Vital Signs Date Time Temp Pulse Resp B/P (MAP) Pulse Ox O2 Delivery O2 Flow Rate FiO2 08/20/17 09:40 61 161/78 (105) 08/20/17 07:45 92 Nasal Cannula 2.0 08/20/17 07:36 63 16 93 Nasal Cannula 1.0 08/20/17 07:05 36.5 68 18 163/73 (103) 91 Nasal Cannula 2.0 08/19/17 23:01 36.9 67 18 157/77 (103) 91 Nasal Cannula 1.0 08/19/17 20:47 69 162/76 (104) 08/19/17 20:00 91 Nasal Cannula 2.0 08/19/17 19:55 81 16 96 Nasal Cannula 2.0 08/19/17 19:02 144/67 (92) 08/19/17 16:00 92 Nasal Cannula 2.0 08/19/17 15:34 36.5 68 18 161/78 (105) 91 Nasal Cannula 2.0 08/19/17 15:34 85 16 95 Nasal Cannula 2.0 Physical Exam General Appearance: no apparent distress Neck: thyroid normal, no JVD Respiratory/Chest: lungs clear Cardiovascular: regular rate, rhythm, no murmur Abdomen: normal bowel sounds, + distended, + tenderness (mild, diffuse), + pertinent finding (NG in place draining bile then the CT oral contrast) Extremities: no pedal edema Neurologic/Psych: alert, normal mood/affect, oriented x 3 Skin: normal color, no jaundice Laboratory Results Last 24 Hours Test 08/19/17 18:01 08/19/17 23:51 08/20/17 05:56 08/20/17 07:25 Bedside Glucose 154 mg/dl 154 mg/dl 163 mg/dl White Blood Count 9.34 K/uL Red Blood Count 3.14 M/uL Hemoglobin 10.2 g/dL Hematocrit 29.1 % Mean Corpuscular Volume 92.7 fL Mean Corpuscular Hemoglobin 32.5 pg Mean Corpuscular Hemoglobin Concent 35.1 g/dl RDW Standard Deviation 42.0 fL RDW Coefficient of Variation 12.4 % Platelet Count 186 K/uL Mean Platelet Volume 10.6 fL Sodium Level 141 mmol/L Potassium Level 4.2 mmol/L Chloride Level 112 mmol/L Carbon Dioxide Level 18 mmol/L Anion Gap 11.0 mmol/L Blood Urea Nitrogen 80 mg/dl Creatinine 4.99 mg/dl Est Creatinine Clear Calc Drug Dose 12.7 ml/min Estimated GFR () 13.2 Estimated GFR (Non- 11.4 BUN/Creatinine Ratio 16.1 Random Glucose 160 mg/dl Calcium Level 8.2 mg/dl Repeat CT this mornin. Worsening high grade small bowel obstruction with progressive small bowel dilatation. 2. Persistent pericardial effusion 3. Worsening bibasilar atelectasis/consolidation. 4. Cholelithiasis Assessment and Plan SBO with suggestion of inflammation either infectious or inflammatory on imaging. Appreciate surgical management of this case and will watch for surgery and path results.
--- NOTE | 2017-08-20 13:16 | [facility] Operative Report ---
Operative Report Operative Date Aug 20, 2017. Pre-Operative Diagnosis Small bowel obstruction Post-Operative Diagnosis Same, ruptured appendix Procedure(s) Performed Laparotomy, Drainage of Intra-Abdominal Abcess, Appendectomy Surgeon Dr Elizabeth [employer] Dispatcher Surgeon(s) John Donaldson PA-C Estimated Blood Loss 10cc Findings ruptured appendix w/ localized abscess, adhesions causing sbo Specimens Routine culture and anaerobic culture of intra-abdominal fluid sent at 1220 Permanent: A: Appendix Drains #[address] JAKOB to pelvis/ RLQ Anesthesia gen Complication(s) None Disposition Recovery Room / PACU I attest to the content of the Intraoperative Record and any orders documented therein. Any exceptions are noted below.
[2017-08-20] MEDS ORDERED: NALOXONE HCL 0.4 MG/1 ML VIAL/CARP ONE (13:34)
--- NOTE | 2017-08-20 13:53 | OPERATIVE REPORT ---
DATE OF OPERATION: 08/20/2017 PREOPERATIVE DIAGNOSIS: Small-bowel obstruction. POSTOPERATIVE DIAGNOSIS: Same from ruptured appendix and adhesions as well as intra-abdominal abscess. NAME OF OPERATION: Exploratory laparotomy with drainage of intra-abdominal abscess and appendectomy. STAFF SURGEON: Dr. Elizabeth. MINE SUPERVISOR: Roshan Donaldson PA-C. ANESTHESIA: General. FINDINGS: The patient had cloudy intra-abdominal fluid with adhesions of the small bowel within the pelvis and right lower quadrant from contained abscess from a ruptured appendix causing a small-bowel obstruction. OPERATION AND FINDINGS: PROCEDURE: The patient was brought in the operating room and placed on the operating table in supine position. Mathis catheter was placed. Pneumatic stockings and the patient had nasogastric tube in place. The abdomen was prepped and draped in usual fashion. Midline incision was made from just above the umbilicus down to just above the pubis carrying dissection down into the abdomen encountering a dilated small bowel and some mildly cloudy fluid which was cultured. Upon exploration from the ligament of Treitz distally we were able to find the area of the obstruction which was from adhesions in an acute nature in the pelvis and right lower quadrant from an intraabdominal abscess from ruptured appendix. Small bowel was mobilized, there was some fibrinous exudate on the small bowel which was debrided. Small bowel was completely viable. We did not require resection. The cloudy fluid and abscess were drained and then the appendectomy performed, transecting and ligating the mesoappendix and base using 0 chromic catgut suture. The abdomen was then irrigated with saline solution then Mefoxin saline solution. A 19 round David-López drain placed through the right lower abdominal wall down into the right lower quadrant and the pelvis, secured using 3-0 nylon suture. The abdomen was irrigated with antibiotic solution and then the small bowel was decompressed milking the contents back into the stomach with recovery of 1500 mL of fluid. At this point, the abdomen was closed, reapproximating the fascia and peritoneum using both running #1 chromic catgut suture and running #1 PDS suture. The skin was loosely reapproximated with spaces where half inch Betadine gauze was placed intermittently within the incision. Dressing applied and patient transferred to recovery room in stable condition. I attest to the content of the Intraoperative Record and any orders documented therein. Any exception s are noted below.
[2017-08-20] MEDS ORDERED: ONDANSETRON INJ 2 MG/ML 2 ML VIAL IV PRN (14:30)
[2017-08-20] MEDS ORDERED: EpHEDrine SULFATE INJ 50 MG/ML AMP IV PRN (14:30)
[2017-08-20] MEDS ORDERED: ATROPINE SULFATE 0.1 MG/ML 5ML SYR IV PRN (14:30)
--- NOTE | 2017-08-20 16:05 | Anesthesiology Progress Note ---
Anesthesia Post Op Note Date & Time Aug 20, 2017 at 16:05 Vital Signs Pain Intensity: 0 Vital Signs Past 12 Hours Date Time Temp Pulse Resp B/P (MAP) Pulse Ox O2 Delivery O2 Flow Rate FiO2 08/20/17 15:40 129/65 08/20/17 15:38 60 21 08/20/17 15:38 60 21 97 08/20/17 15:35 128/68 08/20/17 15:33 60 25 08/20/17 15:33 60 25 94 08/20/17 15:32 60 18 96 08/20/17 15:32 60 18 08/20/17 15:30 137/67 08/20/17 15:27 60 25 08/20/17 15:27 60 25 96 08/20/17 15:25 128/66 08/20/17 15:22 60 16 96 08/20/17 15:22 60 16 08/20/17 15:21 60 27 96 08/20/17 15:21 60 27 08/20/17 15:20 129/69 08/20/17 15:16 60 21 96 08/20/17 15:16 60 21 08/20/17 15:15 129/67 08/20/17 15:11 60 27 08/20/17 15:11 60 27 97 08/20/17 15:10 128/67 08/20/17 15:07 36.4 08/20/17 15:06 60 20 97 08/20/17 15:06 60 20 08/20/17 15:05 130/69 08/20/17 15:02 61 19 96 08/20/17 15:02 60 19 08/20/17 15:00 132/69 08/20/17 14:57 60 19 96 08/20/17 14:57 60 19 08/20/17 14:56 60 20 08/20/17 14:56 60 20 96 08/20/17 14:55 133/66 08/20/17 14:51 60 20 08/20/17 14:51 60 20 94 08/20/17 14:50 135/69 08/20/17 14:46 60 23 08/20/17 14:46 60 23 95 08/20/17 14:45 133/68 08/20/17 14:41 60 32 93 08/20/17 14:41 60 32 08/20/17 14:40 136/71 08/20/17 14:37 36.2 08/20/17 14:36 60 27 08/20/17 14:36 60 27 93 08/20/17 14:35 137/67 08/20/17 14:31 60 23 95 08/20/17 14:31 60 23 08/20/17 14:30 136/70 08/20/17 14:26 60 26 08/20/17 14:26 60 26 96 08/20/17 14:25 137/74 08/20/17 14:21 61 22 97 08/20/17 14:21 61 22 08/20/17 14:20 142/72 08/20/17 14:17 62 21 08/20/17 14:17 62 21 98 08/20/17 14:15 144/75 08/20/17 14:12 65 20 08/20/17 14:12 65 20 98 08/20/17 14:10 142/79 08/20/17 14:07 65 23 08/20/17 14:07 65 23 98 08/20/17 14:06 65 21 08/20/17 14:06 65 21 98 08/20/17 14:05 139/75 08/20/17 14:01 67 24 99 08/20/17 14:01 67 24 08/20/17 14:00 141/72 08/20/17 13:56 60 18 99 08/20/17 13:56 60 18 08/20/17 13:55 60 20 08/20/17 13:55 60 20 146/74 99 08/20/17 13:50 61 23 08/20/17 13:50 61 23 145/75 99 08/20/17 13:45 65 25 08/20/17 13:45 65 25 147/75 98 08/20/17 13:40 67 13 08/20/17 13:40 67 13 160/81 89 08/20/17 13:40 36.0 66 21 160/81 98 Oxymask 15 08/20/17 09:40 61 161/78 (105) 08/20/17 07:45 92 Nasal Cannula 2.0 08/20/17 07:36 63 16 93 Nasal Cannula 1.0 08/20/17 07:05 36.5 68 18 163/73 (103) 91 Nasal Cannula 2.0 Notes Mental Status: alert / awake / arousable, participated in evaluation Pt Amnestic to Procedure: Yes Nausea / Vomiting: adequately controlled Pain: adequately controlled Airway Patency, RR, SpO2: stable & adequate BP & HR: stable & adequate Hydration State: stable & adequate Anesthetic Complications: no major complications apparent
--- NOTE | 2017-08-20 16:15 | Anesthesiology Progress Note ---
Anesthesia Progress Note Date of Service Aug 20, 2017. Progress Notes Stacey Dash is s/p exploratory laparotomy with appendectomy and small bowel obstruction. She had a smooth intraoperative course without complications , but after extubation she was noted to be very somnolent with shallow respirations. She was given narcan intraop with a resulting increase in respiratory rate, but respirations remained shallow. Testing via nerve stimulator showed 4/4 twitches, but with fade and she was given additional reversal in PACU. After this time, she had 4/4 twitches with sustained tetany, but continued to exhibit shallow respirations. Blood gas testing was significant for a mixed acidosis. Narcotics were withheld and the patient was given additional time in PACU to recover. At the end of her stay in PACU, she awoke to voice, answered questions appropriately, denied pain and SOB, but continued to have shallow respirations. A repeat ABG showed a mixed acidosis, but with less of a respiratory component (pCO2 = 48). Due to her continued acidosis and respiratory pattern, the decision was made to upgrade her status from telemetry to ICU in order to watch her more closely overnight. I spoke with Dr. Elizabeth and notified him of the change. I consulted with her hospitalist Dr. Drew and provided the ICU attending with direct physician to physician sign out prior to transferring the patient to the ICU. Margarita Simental MD, PhD
[2017-08-20] MEDS: CIPROFLOXACIN / D5W 400 MG in PREMIXED IN D5W 200 ML IV SCH (16:35)
--- NOTE | 2017-08-20 16:53 | Progress Note ---
Subjective Date of Service: Aug 20, 2017. Subjective Pt evaluation today including: conversation w/ patient, physical exam, lab review, review of studies, conversation w/ transformation consultant, review of inpatient medication list Pain: moderate pain after surgery PO Intake: NPO Voiding: no voiding problems patient went to OR for ex lap this afternoon after CT with PO contrast showed high grade SBO surgical findings included SBO due to ruptured appendix with contained abdominal abscess appendix removed, abscess drained, ELISA, drain placed in the PACU, patient was taking shallow breaths, would wake up and talk but was lethargic ABG showed mixed respiratory and metabolic acidosis labs today showed a Cr of 4.99, up from yesterday and HCO3 trending down to 18 Problem List Medical Problems: (1) Acute renal failure Status: Acute (2) Bradycardia Status: Acute (3) Cardiopulmonary arrest Status: Acute (4) GI bleed Status: Acute (5) Heart block Status: Acute (6) PNA (pneumonia) Status: Acute (7) Renal failure Status: Acute (8) SBO (small bowel obstruction) Status: Acute (9) Sepsis Status: Acute Review of Systems Constitutional: + weakness, + fatigue Abdomen: + pain All Other Systems: Reviewed and Negative Medications Current Inpatient Medications Medications (Trade) Dose Ordered Sig/Carlin Route Start Time Stop Time Status Last Admin Dose Admin Ioversol (Optiray 320) 100 ml UD PRN IV 08/17/17 09:45 08/21/17 09:44 Acetaminophen (Tylenol Tab) 650 mg Q4H PRN PO 08/17/17 13:45 09/16/17 13:44 08/18/17 09:17 650 MG Al Hydrox/Mg Hydrox/Simethicone (Maalox Max Susp) 15 ml Q4H PRN PO 08/17/17 13:45 09/16/17 13:44 08/18/17 21:37 15 ML Magnesium Hydroxide (Milk Of Magnesia Susp) 30 ml Q6H PRN PO 08/17/17 13:45 09/16/17 13:44 Polyethylene (Miralax Powder Packet) 17 gm DAILY PRN PO 08/17/17 15:00 09/16/17 14:59 Ondansetron HCl (Zofran Inj) 4 mg Q6H PRN IV 08/17/17 13:45 09/16/17 13:44 08/17/17 22:45 4 MG Heparin Sodium (Porcine) (Heparin Sq 5000 Unit/0.5ml) 5,000 unit Q12H SQ 08/17/17 21:00 09/16/17 20:59 08/20/17 09:48 5,000 UNIT Glucose (Glucose 40% Gel) 15-30 GRAMS 15 GRAMS... UD PRN PO 08/17/17 13:45 09/16/17 13:44 Glucose (Glucose Chew Tab) 4-8 Tablets 4 Tabl... UD PRN PO 08/17/17 13:45 09/16/17 13:44 Dextrose (Dextrose 50% 50ML Syringe) 25-50ML OF 50% DW IV FOR... UD PRN IV 08/17/17 13:45 09/16/17 13:44 Glucagon (Glucagon Inj) 1 mg UD PRN SQ 08/17/17 13:45 09/16/17 13:44 Latanoprost (Xalatan Oph Soln) 1 drops HS OPB 08/17/17 21:00 09/16/17 20:59 08/19/17 20:45 1 DROPS Sodium Chloride 1,000 ml @ 100 mls/hr Q10H IV 08/17/17 15:30 09/16/17 15:29 08/20/17 16:21 100 MLS/HR Amlodipine Besylate (Norvasc Tab) 10 mg DAILY PO 08/18/17 09:00 09/17/17 08:59 Future Hold 08/18/17 09:03 10 MG Atorvastatin Calcium (Lipitor Tab) 40 mg QAM PO 08/18/17 09:00 09/17/17 08:59 Future Hold 08/18/17 09:03 40 MG Carvedilol (Coreg Tab) 18.75 mg BID PO 08/17/17 21:00 09/16/17 20:59 08/20/17 09:46 18.75 MG Finasteride (Proscar Tab) 5 mg DAILY PO 08/18/17 09:00 09/17/17 08:59 Future Hold 08/18/17 09:03 5 MG Non-Formulary Medication (Darunavir Ethanolate (Prezista)) 800 mg HS PO 08/17/17 21:00 09/16/17 20:59 UNV Elvitegravir/ Cobicis/Emtricit/ Tenof (Genvoya [phone] Mg) 1 tab DAILY PO 08/18/17 09:00 09/17/17 08:59 Future Hold 08/18/17 09:17 1 TAB Morphine Sulfate (MoRPHine SULFATE INJ) 4 mg Q4H PRN IV 08/17/17 14:15 08/31/17 14:14 08/18/17 21:41 4 MG Famotidine 20 mg/ Syringe 5 ml @ 2.5 mls/min Q12H IV 08/18/17 19:00 09/17/17 18:59 08/20/17 06:18 2.5 MLS/MIN Zolpidem Tartrate (Ambien Tab) 5 mg HS PRN PO 08/18/17 22:00 09/17/17 21:59 Future Hold 08/18/17 23:16 5 MG Hydralazine HCl (HydrALAZINE INJ) 10 mg Q6H PRN IV. 08/19/17 10:30 09/18/17 10:29 Insulin Aspart (novoLOG ASPART) SLIDING SCALE If C... Q6 SC 08/19/17 12:00 09/18/17 11:59 Ciprofloxacin/ Dextrose 400 mg/ Prmx 200 ml @ 100 mls/hr Q24H IV 08/19/17 16:00 08/29/17 15:59 08/20/17 16:35 100 MLS/HR Metronidazole 500 mg/Prmx 100 ml @ 100 mls/hr Q8H IV 08/19/17 14:30 08/29/17 14:29 08/20/17 16:35 100 MLS/HR Ciprofloxacin (Consult) 1 ea UD PRN N/A 08/19/17 14:15 09/18/17 14:14 Menthol (Nice Nory) 1 nory Q1H PRN PO 08/19/17 18:45 09/18/17 18:44 08/19/17 18:53 1 NORY Albuterol/ Ipratropium (Duoneb) 3 ml Q6H PRN INH 08/20/17 12:00 09/18/17 11:59 Hydromorphone HCl (Dilaudid Inj) 0.5 mg Q3H PRN IV 08/20/17 13:30 09/03/17 13:29 Hydromorphone HCl (Dilaudid Inj) 1 mg Q3H PRN IV 08/20/17 13:30 09/03/17 13:29 Ondansetron HCl (Zofran Inj) 4 mg ONE PRN IV 08/20/17 14:30 08/20/17 19:30 Ephedrine Sulfate (EpHEDrine SULFATE INJ) 5 mg Q5M PRN IV 08/20/17 14:30 08/20/17 19:30 Atropine Sulfate (Atropine Sulfate 0.1mg/ml Inj) 0.5 mg Q1M PRN IV 08/20/17 14:30 08/20/17 19:30 Objective Vital Signs Date Time Temp Pulse Resp B/P (MAP) Pulse Ox O2 Delivery O2 Flow Rate FiO2 08/20/17 16:00 97 Oxymask 10.0 08/20/17 15:40 129/65 08/20/17 15:38 60 21 08/20/17 15:38 60 21 97 08/20/17 15:35 128/68 08/20/17 15:33 60 25 08/20/17 15:33 60 25 94 08/20/17 15:32 60 18 96 08/20/17 15:32 60 18 08/20/17 15:30 137/67 08/20/17 15:27 60 25 08/20/17 15:27 60 25 96 08/20/17 15:25 128/66 08/20/17 15:22 60 16 96 08/20/17 15:22 60 16 08/20/17 15:21 60 27 96 08/20/17 15:21 60 27 08/20/17 15:20 129/69 08/20/17 15:16 60 21 96 08/20/17 15:16 60 21 08/20/17 15:15 129/67 08/20/17 15:11 60 27 08/20/17 15:11 60 27 97 08/20/17 15:10 128/67 08/20/17 15:07 36.4 08/20/17 15:06 60 20 97 08/20/17 15:06 60 20 08/20/17 15:05 130/69 08/20/17 15:02 61 19 96 08/20/17 15:02 60 19 08/20/17 15:00 132/69 08/20/17 14:57 60 19 96 18 14:57 60 19 08/20/17 14:56 60 20 08/20/17 14:56 60 20 96 18 14:55 133/66 18 14:51 60 20 08/20/17 14:51 60 20 94 08/20/17 14:50 135/69 08/20/17 14:46 60 23 08/20/17 14:46 60 23 95 08/20/17 14:45 133/68 08/20/17 14:41 60 32 93 08/20/17 14:41 60 32 08/20/17 14:40 136/71 08/20/17 14:37 36.2 08/20/17 14:36 60 27 08/20/17 14:36 60 27 93 08/20/17 14:35 137/67 08/20/17 14:31 60 23 95 08/20/17 14:31 60 23 08/20/17 14:30 136/70 08/20/17 14:26 60 26 08/20/17 14:26 60 26 96 08/20/17 14:25 137/74 08/20/17 14:21 61 22 97 08/20/17 14:21 61 22 08/20/17 14:20 142/72 08/20/17 14:17 62 21 08/20/17 14:17 62 21 98 08/20/17 14:15 144/75 08/20/17 14:12 65 20 08/20/17 14:12 65 20 98 08/20/17 14:10 142/79 08/20/17 14:07 65 23 08/20/17 14:07 65 23 98 08/20/17 14:06 65 21 08/20/17 14:06 65 21 98 08/20/17 14:05 139/75 08/20/17 14:01 67 24 99 08/20/17 14:01 67 24 08/20/17 14:00 141/72 08/20/17 13:56 60 18 99 08/20/17 13:56 60 18 08/20/17 13:55 60 20 08/20/17 13:55 60 20 146/74 99 08/20/17 13:50 61 23 08/20/17 13:50 61 23 145/75 99 08/20/17 13:45 65 25 08/20/17 13:45 65 25 147/75 98 08/20/17 13:40 67 13 08/20/17 13:40 67 13 160/81 89 08/20/17 13:40 36.0 66 21 160/81 98 Oxymask 15 08/20/17 09:40 61 161/78 (105) 08/20/17 07:45 92 Nasal Cannula 2.0 08/20/17 07:36 63 16 93 Nasal Cannula 1.0 08/20/17 07:05 36.5 68 18 163/73 (103) 91 Nasal Cannula 2.0 08/19/17 23:01 36.9 67 18 157/77 (103) 91 Nasal Cannula 1.0 08/19/17 20:47 69 162/76 (104) 08/19/17 20:00 91 Nasal Cannula 2.0 08/19/17 19:55 81 16 96 Nasal Cannula 2.0 08/19/17 19:02 144/67 (92) Physical Exam General Appearance: WD/WN, no apparent distress Neck: supple, no adenopathy, no JVD, trachea midline Respiratory/Chest: chest non-tender, no respiratory distress, no accessory muscle use, + decreased breath sounds, + pertinent finding (shallow breaths) Cardiovascular: regular rate, rhythm (paced), no edema, no gallop, no JVD, no murmur Abdomen: no organomegaly, + abnormal bowel sounds (hypoactive), + distended, + tenderness Extremities: normal range of motion, non-tender, normal inspection, no pedal edema, no calf tenderness, pelvis stable Neurologic/Psychiatric: director script II-XII nml as tested, normal mood/affect, oriented x 3, + motor weakness, + pertinent finding (lethargic) Skin: normal color, warm/dry, no rash Lymphatic: no adenopathy Laboratory Results Last 24 Hours Test 08/19/17 18:01 08/19/17 23:51 08/20/17 05:56 08/20/17 07:25 Bedside Glucose 154 mg/dl 154 mg/dl 163 mg/dl White Blood Count 9.34 K/uL Red Blood Count 3.14 M/uL Hemoglobin 10.2 g/dL Hematocrit 29.1 % Mean Corpuscular Volume 92.7 fL Mean Corpuscular Hemoglobin 32.5 pg Mean Corpuscular Hemoglobin Concent 35.1 g/dl RDW Standard Deviation 42.0 fL RDW Coefficient of Variation 12.4 % Platelet Count 186 K/uL Mean Platelet Volume 10.6 fL Sodium Level 141 mmol/L Potassium Level 4.2 mmol/L Chloride Level 112 mmol/L Carbon Dioxide Level 18 mmol/L Anion Gap 11.0 mmol/L Blood Urea Nitrogen 80 mg/dl Creatinine 4.99 mg/dl Est Creatinine Clear Calc Drug Dose 12.7 ml/min Estimated GFR () 13.2 Estimated GFR (Non- 11.4 BUN/Creatinine Ratio 16.1 Random Glucose 160 mg/dl Calcium Level 8.2 mg/dl Test 08/20/17 14:00 08/20/17 14:07 08/20/17 14:58 Bedside Blood Gas pH (LAB) 7.10 7.16 Bedside Blood Gas pCO2 (LAB) 59 mmHg 50 mmHg Bedside Blood Gas pO2 (LAB) 139 mmHg 84 mmHg Bedside Blood Gas HCO3 (LAB) 18 meq/L 18 meq/L Bedside Blood Gas Total CO2 20 mEq/l 19 mEq/l Bedside Blood Gas Base Excess (LAB) -11.0 meq/L -11.0 meq/L Bedside Blood Gas O2 Saturation 98.0 % 93.0 % Bedside Glucose 158 mg/dl Assessment and Plan 61 y/o transgender female with a history of HTN, HLD, sick sinus syndrome s/p pacemaker 04/26/17, DM II, CKD stage III, anemia of chronic disease, and HIV who presented to the ED on 08/[facility] from [facility] with abdominal pain, nausea and vomiting. Pt afebrile, VSS on arrival. O2 sat did drop to 85%, placed on 2L NC. CXR with possible left base consolidation vs atelectasis. CT abdomen/ pelvis with distal small bowel obstructive change and inflammatory change of the appendix with associated appendicolith. Creatinine 2.50, elevated above baseline. POC lactic acid 2.15. LFTs elevated. SBO due to rupture appendix, abdominal abscess to OR on 08/20/17, appendectomy, abscess drained, ELISA, drain placed to ICU afterwards continue NGT, NPO management per surgery for the abdomen Acute respiratory and metabolic acidosis due to poor ventilation post op and renal failure management per ICU, may need NIPPV if she does not wake up more and take deeper breaths LEEROY on CKD stage II, likely secondary to ATN- baseline anesthesiologist physician 2.0-2.5- anesthesiologist physician 4.9 today, anemia of chronic disease- baseline hgb 10: management per nephrology Avoid nephrotoxic agents and renally dose medications as appropriate Follow PRP urine output decreased, may need to consider HD if needed HTN, HLD, sick sinus syndrome s/p pacemaker 04/26/17: - Hold Norvasc 10 mg PO qd, and Lipitor 40 mg PO qd due to NPO status - may need Lopressor IV now that in ICU - IV Hydralazine PRN T2DM- last HgbA1c 5.0%: - Hold Glipizide while inpatient - BSG ACHS and ISS HIV: Continue Genvoya 1 tab PO qd and Prezista 800 mg PO HS once taking PO BPH: Hold Proscar 5 mg PO qd while NPO Glaucoma: Continue Latanoprost drops GI prophylaxis: IV Pepcid DVT prophylaxis: Heparin SQ BID Code Status: LEVEL I, FULL Dispo: From [facility] transfer to ICU post op, appreciate management of ventilatory failure
--- NOTE | 2017-08-20 18:03 | Critical Care Consultation ---
Critical Care Consultation Date of Consultation: Aug 20, 2017. Attending Physician: Lamine Drew D.O. Reason for Consultation: Respiratory failure History of Present Illness This is a 61 year-old female, transgender [id number], h/o HIV, recent PPM, POD#0 s/p ex-lap for SBO, finding ruptured appendicitis with abscess formation. Appendectomy performed, abdominal washing performed, JAKOB drain left in place. Post-op the patient was extubated, found to have shallow breathing, ABG showing respiratory and metabolic acidosis, was lethargic. Also, the patient was found to have significant acute kidney injury on this admission. In the ICU, the patient appears comfortable, mildly lethargic, but wakes up easily to verbal commands and interacts appropriately. Denies abdominal pain, denies shortness of breath Past Medical/Surgical History HIV+ CKD PPM Transgender Family History Diabetes mellitus Hypertension Social History Smoking Status: Unknown if Ever Smoked Smokeless Tobacco Use: No Alcohol Use: none Drug Use: none Marital Status: single Housing Status: other Occupation Status: unemployed Allergies Coded Allergies: Penicillins (Verified Allergy, Intermediate, UNKNOWN, 08/17/17) Home Medications Scheduled Amlodipine Besylate (Norvasc), 1 TAB PO DAILY Atorvastatin (Lipitor), 40 MG PO QAM Bumetanide (Bumex), 0.5 MG PO DAILY Carvedilol (Carvedilol), 18.75 MG PO BID Darunavir Ethanolate (Prezista), 800 MG PO HS Dbbrpgdwagpm-Rcckowgdii-Qneivu (Genvoya [phone] mg), 1 TAB PO DAILY Estradiol (Climara), 0.1 MG TOP DAILY Ferrous Sulfate (Ferrous Sulfate), 325 MG PO BIDM Finasteride (Proscar), 5 MG PO DAILY Glipizide (Glucotrol), 10 MG PO BID Latanoprost 0.005% Oph (Xalatan 0.005% Oph), 1 DROP OPB HS Multivitamin (Multivitamin), 1 TAB PO DAILY Scheduled PRN Glucose (Bd Glucose), 4 MG PO QID PRN for PRN Current Inpatient Medications Current Inpatient Medications Medications (Trade) Dose Ordered Sig/Carlin Route Start Time Stop Time Status Last Admin Dose Admin Ioversol (Optiray 320) 100 ml UD PRN IV 08/17/17 09:45 08/21/17 09:44 Acetaminophen (Tylenol Tab) 650 mg Q4H PRN PO 08/17/17 13:45 09/16/17 13:44 08/18/17 09:17 650 MG Al Hydrox/Mg Hydrox/Simethicone (Maalox Max Susp) 15 ml Q4H PRN PO 08/17/17 13:45 09/16/17 13:44 08/18/17 21:37 15 ML Magnesium Hydroxide (Milk Of Magnesia Susp) 30 ml Q6H PRN PO 08/17/17 13:45 09/16/17 13:44 Polyethylene (Miralax Powder Packet) 17 gm DAILY PRN PO 08/17/17 15:00 09/16/17 14:59 Ondansetron HCl (Zofran Inj) 4 mg Q6H PRN IV 08/17/17 13:45 09/16/17 13:44 08/17/17 22:45 4 MG Heparin Sodium (Porcine) (Heparin Sq 5000 Unit/0.5ml) 5,000 unit Q12H SQ 08/17/17 21:00 09/16/17 20:59 08/20/17 09:48 5,000 UNIT Glucose (Glucose 40% Gel) 15-30 GRAMS 15 GRAMS... UD PRN PO 08/17/17 13:45 09/16/17 13:44 Glucose (Glucose Chew Tab) 4-8 Tablets 4 Tabl... UD PRN PO 08/17/17 13:45 09/16/17 13:44 Dextrose (Dextrose 50% 50ML Syringe) 25-50ML OF 50% DW IV FOR... UD PRN IV 08/17/17 13:45 09/16/17 13:44 Glucagon (Glucagon Inj) 1 mg UD PRN SQ 08/17/17 13:45 09/16/17 13:44 Latanoprost (Xalatan Oph Soln) 1 drops HS OPB 08/17/17 21:00 09/16/17 20:59 08/19/17 20:45 1 DROPS Sodium Chloride 1,000 ml @ 100 mls/hr Q10H IV 08/17/17 15:30 09/16/17 15:29 08/20/17 16:21 100 MLS/HR Amlodipine Besylate (Norvasc Tab) 10 mg DAILY PO 08/18/17 09:00 09/17/17 08:59 Future Hold 08/18/17 09:03 10 MG Atorvastatin Calcium (Lipitor Tab) 40 mg QAM PO 08/18/17 09:00 09/17/17 08:59 Future Hold 08/18/17 09:03 40 MG Carvedilol (Coreg Tab) 18.75 mg BID PO 08/17/17 21:00 09/16/17 20:59 08/20/17 09:46 18.75 MG Finasteride (Proscar Tab) 5 mg DAILY PO 08/18/17 09:00 09/17/17 08:59 Future Hold 08/18/17 09:03 5 MG Non-Formulary Medication (Darunavir Ethanolate (Prezista)) 800 mg HS PO 08/17/17 21:00 09/16/17 20:59 UNV Elvitegravir/ Cobicis/Emtricit/ Tenof (Genvoya [phone] Mg) 1 tab DAILY PO 08/18/17 09:00 09/17/17 08:59 Future Hold 08/18/17 09:17 1 TAB Morphine Sulfate (MoRPHine SULFATE INJ) 4 mg Q4H PRN IV 08/17/17 14:15 08/31/17 14:14 08/18/17 21:41 4 MG Famotidine 20 mg/ Syringe 5 ml @ 2.5 mls/min Q12H IV 08/18/17 19:00 09/17/17 18:59 08/20/17 06:18 2.5 MLS/MIN Zolpidem Tartrate (Ambien Tab) 5 mg HS PRN PO 08/18/17 22:00 09/17/17 21:59 Future Hold 08/18/17 23:16 5 MG Hydralazine HCl (HydrALAZINE INJ) 10 mg Q6H PRN IV. 08/19/17 10:30 09/18/17 10:29 Insulin Aspart (novoLOG ASPART) SLIDING SCALE If C... Q6 SC 08/19/17 12:00 09/18/17 11:59 Ciprofloxacin/ Dextrose 400 mg/ Prmx 200 ml @ 100 mls/hr Q24H IV 08/19/17 16:00 08/29/17 15:59 08/20/17 16:35 100 MLS/HR Metronidazole 500 mg/Prmx 100 ml @ 100 mls/hr Q8H IV 08/19/17 14:30 08/29/17 14:29 08/20/17 16:35 100 MLS/HR Ciprofloxacin (Consult) 1 ea UD PRN N/A 08/19/17 14:15 09/18/17 14:14 Menthol (Nice Nory) 1 nory Q1H PRN PO 08/19/17 18:45 09/18/17 18:44 08/19/17 18:53 1 NORY Albuterol/ Ipratropium (Duoneb) 3 ml Q6H PRN INH 08/20/17 12:00 09/18/17 11:59 Hydromorphone HCl (Dilaudid Inj) 0.5 mg Q3H PRN IV 08/20/17 13:30 09/03/17 13:29 Hydromorphone HCl (Dilaudid Inj) 1 mg Q3H PRN IV 08/20/17 13:30 09/03/17 13:29 Ondansetron HCl (Zofran Inj) 4 mg ONE PRN IV 08/20/17 14:30 08/20/17 19:30 Ephedrine Sulfate (EpHEDrine SULFATE INJ) 5 mg Q5M PRN IV 08/20/17 14:30 08/20/17 19:30 Atropine Sulfate (Atropine Sulfate 0.1mg/ml Inj) 0.5 mg Q1M PRN IV 08/20/17 14:30 08/20/17 19:30 Review of Systems Per HPI, all other systems reviewed and negative Physical Exam Date Time Temp Pulse Resp B/P (MAP) Pulse Ox O2 Delivery O2 Flow Rate FiO2 08/20/17 17:00 60 18 135/65 (88) 98 Oxymask 6.0 08/20/17 16:45 60 21 133/71 (91) 99 Oxymask 8.0 08/20/17 16:30 60 19 130/63 (85) 98 Oxymask 8.0 08/20/17 16:15 60 20 125/62 (83) 97 Oxymask 10.0 08/20/17 16:00 97 Oxymask 10.0 08/20/17 16:00 37.0 65 18 133/67 (89) 97 Oxymask 10.0 18 16:00 97 Oxymask 10.0 18 15:40 129/65 18 15:38 60 21 18 15:38 60 21 97 18 15:35 128/68 18 15:33 60 25 18 15:33 60 25 94 18 15:32 60 18 96 18 15:32 60 18 18 15:30 137/67 18 15:27 60 25 18 15:27 60 25 96 18 15:25 128/66 18 15:22 60 16 96 08/20/17 15:22 60 16 08/20/17 15:21 60 27 96 18 15:21 60 27 18 15:20 129/69 18 15:16 60 21 96 18 15:16 60 21 18 15:15 129/67 18 15:11 60 27 18 15:11 60 27 97 18 15:10 128/67 18 15:07 36.4 08/20/17 15:06 60 20 97 18 15:06 60 20 18 15:05 130/69 18 15:02 61 19 96 18 15:02 60 19 18 15:00 132/69 18 14:57 60 19 96 18 14:57 60 19 18 14:56 60 20 18 14:56 60 20 96 18 14:55 133/66 18 14:51 60 20 18 14:51 60 20 94 18 14:50 135/69 18 14:46 60 23 18 14:46 60 23 95 18 14:45 133/68 08/20/17 14:41 60 32 93 08/20/17 14:41 60 32 08/20/17 14:40 136/71 08/20/17 14:37 36.2 08/20/17 14:36 60 27 08/20/17 14:36 60 27 93 08/20/17 14:35 137/67 08/20/17 14:31 60 23 95 08/20/17 14:31 60 23 08/20/17 14:30 136/70 08/20/17 14:26 60 26 08/20/17 14:26 60 26 96 08/20/17 14:25 137/74 08/20/17 14:21 61 22 97 08/20/17 14:21 61 22 08/20/17 14:20 142/72 08/20/17 14:17 62 21 08/20/17 14:17 62 21 98 08/20/17 14:15 144/75 08/20/17 14:12 65 20 08/20/17 14:12 65 20 98 08/20/17 14:10 142/79 08/20/17 14:07 65 23 08/20/17 14:07 65 23 98 08/20/17 14:06 65 21 08/20/17 14:06 65 21 98 08/20/17 14:05 139/75 08/20/17 14:01 67 24 99 08/20/17 14:01 67 24 08/20/17 14:00 141/72 08/20/17 13:56 60 18 99 08/20/17 13:56 60 18 08/20/17 13:55 60 20 08/20/17 13:55 60 20 146/74 99 08/20/17 13:50 61 23 08/20/17 13:50 61 23 145/75 99 08/20/17 13:45 65 25 08/20/17 13:45 65 25 147/75 98 08/20/17 13:40 67 13 08/20/17 13:40 67 13 160/81 89 08/20/17 13:40 36.0 66 21 160/81 98 Oxymask 15 08/20/17 09:40 61 161/78 (105) 08/20/17 07:45 92 Nasal Cannula 2.0 08/20/17 07:36 63 16 93 Nasal Cannula 1.0 08/20/17 07:05 36.5 68 18 163/73 (103) 91 Nasal Cannula 2.0 08/19/17 23:01 36.9 67 18 157/77 (103) 91 Nasal Cannula 1.0 08/19/17 20:47 69 162/76 (104) 08/19/17 20:00 91 Nasal Cannula 2.0 08/19/17 19:55 81 16 96 Nasal Cannula 2.0 08/19/17 19:02 144/67 (92) General: no acute distress Heent: NC/AT Lungs: Coarse wheezing b/l CVS: S1S2 regular Abdomen: Large dressing, JAKOB draining serous fluid Ext: no edema 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: mildly lethargic, but no focal deficit, AAO x 3 Laboratory Results Last 24 Hours Test 08/19/17 18:01 08/19/17 23:51 08/20/17 05:56 08/20/17 07:25 Bedside Glucose 154 mg/dl 154 mg/dl 163 mg/dl White Blood Count 9.34 K/uL Red Blood Count 3.14 M/uL Hemoglobin 10.2 g/dL Hematocrit 29.1 % Mean Corpuscular Volume 92.7 fL Mean Corpuscular Hemoglobin 32.5 pg Mean Corpuscular Hemoglobin Concent 35.1 g/dl RDW Standard Deviation 42.0 fL RDW Coefficient of Variation 12.4 % Platelet Count 186 K/uL Mean Platelet Volume 10.6 fL Sodium Level 141 mmol/L Potassium Level 4.2 mmol/L Chloride Level 112 mmol/L Carbon Dioxide Level 18 mmol/L Anion Gap 11.0 mmol/L Blood Urea Nitrogen 80 mg/dl Creatinine 4.99 mg/dl Est Creatinine Clear Calc Drug Dose 12.7 ml/min Estimated GFR () 13.2 Estimated GFR (Non- 11.4 BUN/Creatinine Ratio 16.1 Random Glucose 160 mg/dl Calcium Level 8.2 mg/dl Test 08/20/17 14:00 08/20/17 14:07 08/20/17 14:58 Bedside Blood Gas pH (LAB) 7.10 7.16 Bedside Blood Gas pCO2 (LAB) 59 mmHg 50 mmHg Bedside Blood Gas pO2 (LAB) 139 mmHg 84 mmHg Bedside Blood Gas HCO3 (LAB) 18 meq/L 18 meq/L Bedside Blood Gas Total CO2 20 mEq/l 19 mEq/l Bedside Blood Gas Base Excess (LAB) -11.0 meq/L -11.0 meq/L Bedside Blood Gas O2 Saturation 98.0 % 93.0 % Bedside Glucose 158 mg/dl Diagnostic Results CT abdomen today: IMPRESSION: 1. Worsening high grade small bowel obstruction with progressive small bowel dilatation. 2. Persistent pericardial effusion 3. Worsening bibasilar atelectasis/consolidation. 4. Cholelithiasis Assessment & Plan POD#0 s/p exlap with appendectomy Small bowel obstruction Acute kidney injury HIV+ G6PD deficiency DM2 Transgender Plan: [employer] CHECKING: Avoid sedating agents Likely has decreased clearance secondary to kidney failure Pulmonary: Supplemental O2 Repeat ABG later, she seems to improve slowly, may hold off on bi-level NIV for now Bronchodilators CVS: HD stable Continue IV fluids Continue antihypertensives Renal/metabolic: Continue IV fluids For the time being there is no need for hemodialysis Keep Mathis in, monitor I/O ID: On Cipro/Flagyl eventually resume antiretroviral therapy once able to take PO F/u peritoneal washings culture GI: NPO Maintain NGT Monitor for BM Wound care Monitor drain output Endo: Q6 fingerstic, insulin coverage DVT prophylaxis: SC heparin Critical care time spent with patient, reviewing the chart, discussing with consultants, greater than 30 minutes
[2017-08-20] MEDS: HYDROmorphone INJ 0.5 MG/0.5 ML SYR IV PRN ×2 (19:59→23:28)
[2017-08-20] MEDS: LATANOPROST 0.005% OP SOLN 2.5 ML BTL OPB SCH (21:32)
[2017-08-21] VITALS (26 sets, daily range): BP systolic 115–166; BP diastolic 56–82; PULSE 59–62; TEMP 36.4–36.8; O2SAT 90–100; BMI 24.1
[2017-08-21] MEDS: SODIUM CHLORIDE 0.9% 1000ML 1,000 ML IV SCH ×2 (03:44→16:05)
[2017-08-21] MEDS: HYDROmorphone INJ 0.5 MG/0.5 ML SYR IV PRN ×2 (03:44→08:16)
[2017-08-21 04:59] LABS: BASO % 0.1 %; BASO ABS # 0.01 K/uL (0-0.2); IG# 0.01 K/uL (0.00-0.02); LYMPH ABS # 0.41 K/uL (1.2-3.4); MEAN CELL VOLUME 94.2 fL (80-100); MEAN CORPUSCULAR HEMOGLOBIN 32.5 pg (25-34); MEAN CORPUSCULAR HGB CONC 34.5 g/dl (32-36); MEAN PLATELET VOLUME 10.4 fL (7.4-10.4); MONO % 2.3 %; MONO ABS # 0.19 K/uL (0.11-0.59); NEUT % 92.5 %; NEUT ABS # 7.63 K/uL (1.4-6.5); PLATELET COUNT 192 K/uL (130-400); RED CELL DISTRIBUTION WIDTH CV 12.2 % (11.5-14.5); RED CELL DISTRIBUTION WIDTH SD 41.3 fL (36.4-46.3); WHITE BLOOD COUNT 8.25 K/uL (4.8-10.8)
[2017-08-21 05:34] LABS: CALCIUM 7.7 mg/dl (8.5-10.1); CREATININE 5.36 mg/dl (0.60-1.40); POTASSIUM 4.9 mmol/L (3.5-5.1)
[2017-08-21 05:36] LABS: PHOSPHORUS 6.1 mg/dl (2.5-4.9)
[2017-08-21] MEDS: INSULIN ASPART 100 UNITS/ML 3 ML PEN SC SCH ×3 (06:00→16:11)
[2017-08-21] MEDS: METRONIDAZOLE / NSS 500 MG in PREMIXED NSS 100 ML IV SCH ×3 (06:02→22:18)
[2017-08-21] MEDS: FAMOTIDINE IV INJ 20 MG in SYRINGE 3 ML IV SCH ×2 (06:03→17:18)
[2017-08-21] MEDS ORDERED: HEPARIN SOD 5000 UNIT/0.5 ML CARP SQ SCH (08:00)
[2017-08-21] MEDS: CARVEDILOL 12.5 MG TAB PO SCH ×2 (08:04→21:30)
[2017-08-21] MEDS: HEPARIN SOD 5000 UNIT/0.5 ML CARP SQ SCH ×2 (08:06→21:35)
--- NOTE | 2017-08-21 12:04 | Surgery Progress Note ---
Surgery Progress Note Date of Service Aug 21, 2017. Subjective Post OP Day: 1 + feeling well pt feels better, she denies abdominal pain, no nausea, no vomiting, no BM yet. BUN 84, Cr 5.3 Objective Vital Signs: Date Time Temp Pulse Resp B/P (MAP) Pulse Ox O2 Delivery O2 Flow Rate FiO2 08/21/17 09:00 60 12 153/73 (99) 90 Room Air 08/21/17 08:00 36.4 61 14 161/73 (102) 92 Room Air 08/21/17 08:00 Room Air 08/21/17 07:00 60 16 150/75 (100) 91 Room Air 08/21/17 06:00 60 14 160/82 (111) 94 08/21/17 05:00 60 14 141/71 (87) 98 08/21/17 04:48 60 13 144/76 (98) 97 08/21/17 04:09 60 13 146/78 (98) 95 08/21/17 04:00 99 Oxymask 4.0 08/21/17 04:00 36.5 08/21/17 03:36 61 13 147/73 (93) 99 08/21/17 03:30 60 14 130/64 (88) 100 08/21/17 03:00 60 12 129/62 (80) 99 08/21/17 02:30 60 13 127/63 (84) 99 08/21/17 02:00 60 13 131/64 (83) 100 08/21/17 01:30 60 14 122/63 (79) 99 08/21/17 01:00 60 13 126/64 (81) 99 08/21/17 00:30 60 13 120/58 (74) 99 08/21/17 00:01 36.7 08/21/17 00:00 60 14 115/56 (73) 98 08/20/17 23:59 99 Oxymask 6.0 08/20/17 23:30 60 10 137/67 (81) 98 08/20/17 23:01 60 16 132/66 (78) 99 08/20/17 22:30 60 15 117/58 (79) 99 08/20/17 22:00 60 15 117/58 (74) 99 08/20/17 21:30 60 15 117/57 (72) 98 08/20/17 21:00 60 15 116/57 (78) 97 08/20/17 20:30 60 18 134/64 (92) 98 08/20/17 20:00 61 16 97 Mask 6.0 08/20/17 20:00 97 Oxymask 6.0 08/20/17 20:00 61 19 134/77 (101) 98 08/20/17 20:00 36.7 08/20/17 19:30 60 15 129/61 (74) 99 08/20/17 19:00 60 17 119/57 (72) 99 08/20/17 17:00 60 18 135/65 (88) 98 Oxymask 6.0 08/20/17 16:45 60 21 133/71 (91) 99 Oxymask 8.0 08/20/17 16:30 60 19 130/63 (85) 98 Oxymask 8.0 08/20/17 16:15 60 20 125/62 (83) 97 Oxymask 10.0 08/20/17 16:00 97 Oxymask 10.0 08/20/17 16:00 37.0 65 18 133/67 (89) 97 Oxymask 10.0 08/20/17 16:00 97 Oxymask 10.0 08/20/17 15:40 129/65 08/20/17 15:38 60 21 08/20/17 15:38 60 21 97 08/20/17 15:35 128/68 08/20/17 15:33 60 25 08/20/17 15:33 60 25 94 08/20/17 15:32 60 18 96 08/20/17 15:32 60 18 08/20/17 15:30 137/67 08/20/17 15:27 60 25 08/20/17 15:27 60 25 96 18 15:25 128/66 08/20/17 15:22 60 16 96 08/20/17 15:22 60 16 08/20/17 15:21 60 27 96 08/20/17 15:21 60 27 08/20/17 15:20 129/69 08/20/17 15:16 60 21 96 18 15:16 60 21 08/20/17 15:15 129/67 08/20/17 15:11 60 27 08/20/17 15:11 60 27 97 1/12/18 15:10 128/67 08/20/17 15:07 36.4 08/20/17 15:06 60 20 97 08/20/17 15:06 60 20 08/20/17 15:05 130/69 08/20/17 15:02 61 19 96 08/20/17 15:02 60 19 08/20/17 15:00 132/69 08/20/17 14:57 60 19 96 08/20/17 14:57 60 19 08/20/17 14:56 60 20 08/20/17 14:56 60 20 96 08/20/17 14:55 133/66 08/20/17 14:51 60 20 08/20/17 14:51 60 20 94 08/20/17 14:50 135/69 08/20/17 14:46 60 23 08/20/17 14:46 60 23 95 08/20/17 14:45 133/68 08/20/17 14:41 60 32 93 08/20/17 14:41 60 32 08/20/17 14:40 136/71 08/20/17 14:37 36.2 08/20/17 14:36 60 27 08/20/17 14:36 60 27 93 08/20/17 14:35 137/67 08/20/17 14:31 60 23 95 08/20/17 14:31 60 23 08/20/17 14:30 136/70 08/20/17 14:26 60 26 08/20/17 14:26 60 26 96 08/20/17 14:25 137/74 08/20/17 14:21 61 22 97 08/20/17 14:21 61 22 08/20/17 14:20 142/72 08/20/17 14:17 62 21 08/20/17 14:17 62 21 98 08/20/17 14:15 144/75 08/20/17 14:12 65 20 08/20/17 14:12 65 20 98 08/20/17 14:10 142/79 08/20/17 14:07 65 23 08/20/17 14:07 65 23 98 08/20/17 14:06 65 21 08/20/17 14:06 65 21 98 08/20/17 14:05 139/75 08/20/17 14:01 67 24 99 08/20/17 14:01 67 24 08/20/17 14:00 141/72 08/20/17 13:56 60 18 99 08/20/17 13:56 60 18 08/20/17 13:55 60 20 08/20/17 13:55 60 20 146/74 99 08/20/17 13:50 61 23 08/20/17 13:50 61 23 145/75 99 08/20/17 13:45 65 25 08/20/17 13:45 65 25 147/75 98 08/20/17 13:40 67 13 08/20/17 13:40 67 13 160/81 89 08/20/17 13:40 36.0 66 21 160/81 98 Oxymask 15 General Appearance: WD/WN, no apparent distress Head: normocephalic Neck: supple, no JVD Respiratory/Chest: chest non-tender, lungs clear Cardiovascular: regular rate, rhythm, no edema, no gallop, no JVD, no murmur Abdomen: normal bowel sounds, non tender, non distended, soft Incision(s): clean, dry, intact Extremities: normal range of motion, non-tender, normal inspection Laboratory Results: Results Past 24 Hours Test 08/20/17 14:00 08/20/17 14:07 08/20/17 14:58 08/20/17 18:04 Range/Units Bedside Blood Gas pH (LAB) 7.10 7.16 7.35-7.45 Bedside Blood Gas pCO2 (LAB) 59 50 35-46 mmHg Bedside Blood Gas pO2 (LAB) 139 84 80-95 mmHg Bedside Blood Gas HCO3 (LAB) 18 18 19-24 meq/L Bedside Blood Gas Total CO2 20 19 24-31 mEq/l Bedside Blood Gas Base Excess (LAB) -11.0 -11.0 -9-1.8 meq/L Bedside Blood Gas O2 Saturation 98.0 93.0 90-95 % Bedside Glucose 158 190 70-99 mg/dl Test 08/20/17 23:24 08/21/17 04:51 08/21/17 05:10 08/21/17 06:00 Range/Units Bedside Glucose 153 156 70-99 mg/dl White Blood Count 8.25 4.8-10.8 K/uL Red Blood Count 3.08 4.7-6.1 M/uL Hemoglobin 10.0 14.0-18.0 g/dL Hematocrit 29.0 42-52 % Mean Corpuscular Volume 94.2 80-100 fL Mean Corpuscular Hemoglobin 32.5 25-34 pg Mean Corpuscular Hemoglobin Concent 34.5 32-36 g/dl Platelet Count 192 130-400 K/uL Mean Platelet Volume 10.4 7.4-10.4 fL Neutrophils (%) (Auto) 92.5 % Lymphocytes (%) (Auto) 5.0 % Monocytes (%) (Auto) 2.3 % Eosinophils (%) (Auto) 0.0 % Basophils (%) (Auto) 0.1 % Neutrophils # (Auto) 7.63 1.4-6.5 K/uL Lymphocytes # (Auto) 0.41 1.2-3.4 K/uL Monocytes # (Auto) 0.19 0.11-0.59 K/uL Eosinophils # (Auto) 0.00 0-0.5 K/uL Basophils # (Auto) 0.01 0-0.2 K/uL RDW Standard Deviation 41.3 36.4-46.3 fL RDW Coefficient of Variation 12.2 11.5-14.5 % Immature Granulocyte % (Auto) 0.1 % Immature Granulocyte # (Auto) 0.01 0.00-0.02 K/uL Sodium Level 141 136-145 mmol/L Potassium Level 4.9 3.5-5.1 mmol/L Chloride Level 115 98-107 mmol/L Carbon Dioxide Level 18 21-32 mmol/L Anion Gap 8.0 3-11 mmol/L Blood Urea Nitrogen 84 7-18 mg/dl Creatinine 5.36 0.60-1.40 mg/dl Est Creatinine Clear Calc Drug Dose 11.8 ml/min Estimated GFR () 12.1 Estimated GFR (Non- 10.5 BUN/Creatinine Ratio 15.8 10-20 Random Glucose 191 70-99 mg/dl Calcium Level 7.7 8.5-10.1 mg/dl Phosphorus Level 6.1 2.5-4.9 mg/dl Magnesium Level 2.9 1.8-2.4 mg/dl Blood Gas Sample Site L Radial Bedside Blood Gas pH (LAB) 7.31 7.35-7.45 Bedside Blood Gas pCO2 (LAB) 29 35-46 mmHg Bedside Blood Gas pO2 (LAB) 62 80-95 mmHg Bedside Blood Gas HCO3 (LAB) 15 19-24 meq/L Bedside Blood Gas Total CO2 16 24-31 mEq/l Bedside Blood Gas Base Excess (LAB) -12.0 -9-1.8 meq/L Bedside Blood Gas O2 Saturation 90.0 90-95 % Epi Test Pass Oxygen Delivery Device Other Bedside FiO2 0 % Microbiology Results 08/20/17 Gram Stain - Final, Resulted 08/20/17 Bacterial Culture, Resulted Pending Assessment & Plan F/U S/P xep lap appendectomy acute renal failure recommend consult nephologist for acute renal failure, repeat labs in am continue treatment will F/U
--- NOTE | 2017-08-21 12:53 | Hospitalist Progress Note ---
Hospitalist Progress Note Date of Service Aug 21, 2017. Subjective Pt evaluation today including: conversation w/ patient, physical exam, lab review, review of studies, review of inpatient medication list Voiding: velazquez catheter in place Patient in ICU. Resting in bed. Denies any complaints at present. No pain. +NG tube. +flatus, no BM. Patient denies any fever, chills, sweats, lightheadedness, dizziness, vision changes, CP, palpitations, edema, SOB, wheezing, cough, abdominal pain, nausea, vomiting, diarrhea, urinary symptoms, melena, numbness/tingling, weakness, muscle/joint pain, anxiety/depression, active bleeding, or new skin discoloration/changes. Medications Current Inpatient Medications Medications (Trade) Dose Ordered Sig/Carlin Route Start Time Stop Time Status Last Admin Dose Admin Acetaminophen (Tylenol Tab) 650 mg Q4H PRN PO 08/17/17 13:45 09/16/17 13:44 08/18/17 09:17 650 MG Al Hydrox/Mg Hydrox/Simethicone (Maalox Max Susp) 15 ml Q4H PRN PO 08/17/17 13:45 09/16/17 13:44 08/18/17 21:37 15 ML Magnesium Hydroxide (Milk Of Magnesia Susp) 30 ml Q6H PRN PO 08/17/17 13:45 09/16/17 13:44 Polyethylene (Miralax Powder Packet) 17 gm DAILY PRN PO 08/17/17 15:00 09/16/17 14:59 Ondansetron HCl (Zofran Inj) 4 mg Q6H PRN IV 08/17/17 13:45 09/16/17 13:44 08/17/17 22:45 4 MG Heparin Sodium (Porcine) (Heparin Sq 5000 Unit/0.5ml) 5,000 unit Q12H SQ 08/17/17 21:00 09/16/17 20:59 08/21/17 08:06 5,000 UNIT Glucose (Glucose 40% Gel) 15-30 GRAMS 15 GRAMS... UD PRN PO 08/17/17 13:45 09/16/17 13:44 Glucose (Glucose Chew Tab) 4-8 Tablets 4 Tabl... UD PRN PO 08/17/17 13:45 09/16/17 13:44 Dextrose (Dextrose 50% 50ML Syringe) 25-50ML OF 50% DW IV FOR... UD PRN IV 08/17/17 13:45 09/16/17 13:44 Glucagon (Glucagon Inj) 1 mg UD PRN SQ 08/17/17 13:45 09/16/17 13:44 Latanoprost (Xalatan Oph Soln) 1 drops HS OPB 08/17/17 21:00 09/16/17 20:59 08/20/17 21:32 1 DROPS Sodium Chloride 1,000 ml @ 100 mls/hr Q10H IV 08/17/17 15:30 09/16/17 15:29 08/21/17 03:44 100 MLS/HR Amlodipine Besylate (Norvasc Tab) 10 mg DAILY PO 08/18/17 09:00 09/17/17 08:59 Future Hold 08/18/17 09:03 10 MG Atorvastatin Calcium (Lipitor Tab) 40 mg QAM PO 08/18/17 09:00 09/17/17 08:59 Future Hold 08/18/17 09:03 40 MG Carvedilol (Coreg Tab) 18.75 mg BID PO 08/17/17 21:00 09/16/17 20:59 08/21/17 08:04 18.75 MG Finasteride (Proscar Tab) 5 mg DAILY PO 08/18/17 09:00 09/17/17 08:59 Future Hold 08/18/17 09:03 5 MG Non-Formulary Medication (Darunavir Ethanolate (Prezista)) 800 mg HS PO 08/17/17 21:00 09/16/17 20:59 UNV Elvitegravir/ Cobicis/Emtricit/ Tenof (Genvoya [phone] Mg) 1 tab DAILY PO 08/18/17 09:00 09/17/17 08:59 Future Hold 08/18/17 09:17 1 TAB Morphine Sulfate (MoRPHine SULFATE INJ) 4 mg Q4H PRN IV 08/17/17 14:15 08/31/17 14:14 08/18/17 21:41 4 MG Famotidine 20 mg/ Syringe 5 ml @ 2.5 mls/min Q12H IV 08/18/17 19:00 09/17/17 18:59 08/21/17 06:03 2.5 MLS/MIN Zolpidem Tartrate (Ambien Tab) 5 mg HS PRN PO 08/18/17 22:00 09/17/17 21:59 Future Hold 08/18/17 23:16 5 MG Hydralazine HCl (HydrALAZINE INJ) 10 mg Q6H PRN IV. 08/19/17 10:30 09/18/17 10:29 Insulin Aspart (novoLOG ASPART) SLIDING SCALE If C... Q6 SC 08/19/17 12:00 09/18/17 11:59 08/21/17 12:13 1 UNITS Ciprofloxacin/ Dextrose 400 mg/ Prmx 200 ml @ 100 mls/hr Q24H IV 08/19/17 16:00 08/29/17 15:59 08/20/17 16:35 100 MLS/HR Metronidazole 500 mg/Prmx 100 ml @ 100 mls/hr Q8H IV 08/19/17 14:30 08/29/17 14:29 08/21/17 06:02 100 MLS/HR Ciprofloxacin (Consult) 1 ea UD PRN N/A 08/19/17 14:15 09/18/17 14:14 Menthol (Nice Nory) 1 nory Q1H PRN PO 08/19/17 18:45 09/18/17 18:44 08/19/17 18:53 1 NORY Albuterol/ Ipratropium (Duoneb) 3 ml Q6H PRN INH 08/20/17 12:00 09/18/17 11:59 08/20/17 19:58 3 ML Hydromorphone HCl (Dilaudid Inj) 0.5 mg Q3H PRN IV 08/20/17 13:30 09/03/17 13:29 08/21/17 08:16 0.5 MG Hydromorphone HCl (Dilaudid Inj) 1 mg Q3H PRN IV 08/20/17 13:30 09/03/17 13:29 Objective Vital Signs Date Time Temp Pulse Resp B/P (MAP) Pulse Ox O2 Delivery O2 Flow Rate FiO2 08/21/17 09:00 60 12 153/73 (99) 90 Room Air 08/21/17 08:00 36.4 61 14 161/73 (102) 92 Room Air 08/21/17 08:00 Room Air 08/21/17 07:00 60 16 150/75 (100) 91 Room Air 08/21/17 06:00 60 14 160/82 (111) 94 08/21/17 05:00 60 14 141/71 (87) 98 08/21/17 04:48 60 13 144/76 (98) 97 08/21/17 04:09 60 13 146/78 (98) 95 08/21/17 04:00 99 Oxymask 4.0 08/21/17 04:00 36.5 08/21/17 03:36 61 13 147/73 (93) 99 08/21/17 03:30 60 14 130/64 (88) 100 08/21/17 03:00 60 12 129/62 (80) 99 08/21/17 02:30 60 13 127/63 (84) 99 08/21/17 02:00 60 13 131/64 (83) 100 08/21/17 01:30 60 14 122/63 (79) 99 08/21/17 01:00 60 13 126/64 (81) 99 08/21/17 00:30 60 13 120/58 (74) 99 08/21/17 00:01 36.7 08/21/17 00:00 60 14 115/56 (73) 98 08/20/17 23:59 99 Oxymask 6.0 08/20/17 23:30 60 10 137/67 (81) 98 08/20/17 23:01 60 16 132/66 (78) 99 08/20/17 22:30 60 15 117/58 (79) 99 08/20/17 22:00 60 15 117/58 (74) 99 08/20/17 21:30 60 15 117/57 (72) 98 08/20/17 21:00 60 15 116/57 (78) 97 08/20/17 20:30 60 18 134/64 (92) 98 08/20/17 20:00 61 16 97 Mask 6.0 08/20/17 20:00 97 Oxymask 6.0 08/20/17 20:00 61 19 134/77 (101) 98 08/20/17 20:00 36.7 08/20/17 19:30 60 15 129/61 (74) 99 08/20/17 19:00 60 17 119/57 (72) 99 18 17:00 60 18 135/65 (88) 98 Oxymask 6.0 08/20/17 16:45 60 21 133/71 (91) 99 Oxymask 8.0 08/20/17 16:30 60 19 130/63 (85) 98 Oxymask 8.0 08/20/17 16:15 60 20 125/62 (83) 97 Oxymask 10.0 08/20/17 16:00 97 Oxymask 10.0 08/20/17 16:00 37.0 65 18 133/67 (89) 97 Oxymask 10.0 08/20/17 16:00 97 Oxymask 10.0 08/20/17 15:40 129/65 08/20/17 15:38 60 21 08/20/17 15:38 60 21 97 08/20/17 15:35 128/68 08/20/17 15:33 60 25 08/20/17 15:33 60 25 94 08/20/17 15:32 60 18 96 08/20/17 15:32 60 18 08/20/17 15:30 137/67 08/20/17 15:27 60 25 08/20/17 15:27 60 25 96 08/20/17 15:25 128/66 08/20/17 15:22 60 16 96 08/20/17 15:22 60 16 08/20/17 15:21 60 27 96 08/20/17 15:21 60 27 08/20/17 15:20 129/69 08/20/17 15:16 60 21 96 08/20/17 15:16 60 21 08/20/17 15:15 129/67 08/20/17 15:11 60 27 08/20/17 15:11 60 27 97 08/20/17 15:10 128/67 08/20/17 15:07 36.4 08/20/17 15:06 60 20 97 08/20/17 15:06 60 20 08/20/17 15:05 130/69 08/20/17 15:02 61 19 96 08/20/17 15:02 60 19 08/20/17 15:00 132/69 08/20/17 14:57 60 19 96 08/20/17 14:57 60 19 1/12/18 14:56 60 20 08/20/17 14:56 60 20 96 08/20/17 14:55 133/66 08/20/17 14:51 60 20 08/20/17 14:51 60 20 94 18 14:50 135/69 08/20/17 14:46 60 23 08/20/17 14:46 60 23 95 08/20/17 14:45 133/68 08/20/17 14:41 60 32 93 08/20/17 14:41 60 32 08/20/17 14:40 136/71 08/20/17 14:37 36.2 08/20/17 14:36 60 27 08/20/17 14:36 60 27 93 08/20/17 14:35 137/67 08/20/17 14:31 60 23 95 08/20/17 14:31 60 23 08/20/17 14:30 136/70 08/20/17 14:26 60 26 08/20/17 14:26 60 26 96 08/20/17 14:25 137/74 08/20/17 14:21 61 22 97 08/20/17 14:21 61 22 08/20/17 14:20 142/72 08/20/17 14:17 62 21 08/20/17 14:17 62 21 98 08/20/17 14:15 144/75 08/20/17 14:12 65 20 08/20/17 14:12 65 20 98 08/20/17 14:10 142/79 08/20/17 14:07 65 23 08/20/17 14:07 65 23 98 08/20/17 14:06 65 21 08/20/17 14:06 65 21 98 08/20/17 14:05 139/75 08/20/17 14:01 67 24 99 08/20/17 14:01 67 24 08/20/17 14:00 141/72 08/20/17 13:56 60 18 99 08/20/17 13:56 60 18 08/20/17 13:55 60 20 08/20/17 13:55 60 20 146/74 99 08/20/17 13:50 61 23 08/20/17 13:50 61 23 145/75 99 08/20/17 13:45 65 25 08/20/17 13:45 65 25 147/75 98 08/20/17 13:40 67 13 08/20/17 13:40 67 13 160/81 89 08/20/17 13:40 36.0 66 21 160/81 98 Oxymask 15 Physical Exam General Appearance: no apparent distress Eyes: normal inspection, PERRL ENT: hearing grossly normal, + pertinent finding (NG tube w/ light green drainage ) Neck: supple Respiratory/Chest: lungs clear, no respiratory distress, no accessory muscle use Cardiovascular: regular rate, rhythm Abdomen: + abnormal bowel sounds (hypoactive ), + distended, + pertinent finding (incision site bandage C/D/I) Extremities: no pedal edema, no calf tenderness Neurologic/Psychiatric: alert, normal mood/affect, oriented x 3 Skin: normal color, warm/dry, no rash Laboratory Results Last 24 Hours Test 08/20/17 14:00 08/20/17 14:07 08/20/17 14:58 08/20/17 18:04 Bedside Blood Gas pH (LAB) 7.10 7.16 Bedside Blood Gas pCO2 (LAB) 59 mmHg 50 mmHg Bedside Blood Gas pO2 (LAB) 139 mmHg 84 mmHg Bedside Blood Gas HCO3 (LAB) 18 meq/L 18 meq/L Bedside Blood Gas Total CO2 20 mEq/l 19 mEq/l Bedside Blood Gas Base Excess (LAB) -11.0 meq/L -11.0 meq/L Bedside Blood Gas O2 Saturation 98.0 % 93.0 % Bedside Glucose 158 mg/dl 190 mg/dl Test 08/20/17 23:24 08/21/17 04:51 08/21/17 05:10 08/21/17 06:00 Bedside Glucose 153 mg/dl 156 mg/dl White Blood Count 8.25 K/uL Red Blood Count 3.08 M/uL Hemoglobin 10.0 g/dL Hematocrit 29.0 % Mean Corpuscular Volume 94.2 fL Mean Corpuscular Hemoglobin 32.5 pg Mean Corpuscular Hemoglobin Concent 34.5 g/dl Platelet Count 192 K/uL Mean Platelet Volume 10.4 fL Neutrophils (%) (Auto) 92.5 % Lymphocytes (%) (Auto) 5.0 % Monocytes (%) (Auto) 2.3 % Eosinophils (%) (Auto) 0.0 % Basophils (%) (Auto) 0.1 % Neutrophils # (Auto) 7.63 K/uL Lymphocytes # (Auto) 0.41 K/uL Monocytes # (Auto) 0.19 K/uL Eosinophils # (Auto) 0.00 K/uL Basophils # (Auto) 0.01 K/uL RDW Standard Deviation 41.3 fL RDW Coefficient of Variation 12.2 % Immature Granulocyte % (Auto) 0.1 % Immature Granulocyte # (Auto) 0.01 K/uL Sodium Level 141 mmol/L Potassium Level 4.9 mmol/L Chloride Level 115 mmol/L Carbon Dioxide Level 18 mmol/L Anion Gap 8.0 mmol/L Blood Urea Nitrogen 84 mg/dl Creatinine 5.36 mg/dl Est Creatinine Clear Calc Drug Dose 11.8 ml/min Estimated GFR () 12.1 Estimated GFR (Non- 10.5 BUN/Creatinine Ratio 15.8 Random Glucose 191 mg/dl Calcium Level 7.7 mg/dl Phosphorus Level 6.1 mg/dl Magnesium Level 2.9 mg/dl Blood Gas Sample Site L Radial Bedside Blood Gas pH (LAB) 7.31 Bedside Blood Gas pCO2 (LAB) 29 mmHg Bedside Blood Gas pO2 (LAB) 62 mmHg Bedside Blood Gas HCO3 (LAB) 15 meq/L Bedside Blood Gas Total CO2 16 mEq/l Bedside Blood Gas Base Excess (LAB) -12.0 meq/L Bedside Blood Gas O2 Saturation 90.0 % Epi Test Pass Oxygen Delivery Device Other Bedside FiO2 0 % Assessment and Plan 61 y/o transgender female with a history of HTN, HLD, sick sinus syndrome s/p pacemaker 04/26/17, DM II, CKD stage III, anemia of chronic disease, and HIV who presented to the ED on 08/16 from [facility] with abdominal pain, nausea and vomiting. Pt afebrile, VSS on arrival. O2 sat did drop to 85%, placed on 2L NC. CXR with possible left base consolidation vs atelectasis. CT abdomen/ pelvis with distal small bowel obstructive change and inflammatory change of the appendix with associated appendicolith. Creatinine 2.50, elevated above baseline. POC lactic acid 2.15. LFTs elevated. s/p ex-lap on 08/[address] Elizabeth for SBO, finding ruptured appendicitis with abscess formation: - NPO- NG tube placed on 08/19 - IV NSS @ 100 ml/hr- ECHO from 04/2017 w/ preserved EF - Morphine 4 mg IV q4h, IV Dilaudid PRN for pain management - IV Cipro + Flagyl - General surgery consulted, appreciate recommendations- surgical management as per surgery - GI consulted, appreciate recommendations Acute respiratory and metabolic acidosis- STABLE: - Currently in ICU due to postop anesthesia complications/renal failure- STABLE - management as per cycling instructor - DuoNebs QID and PRN LEEROY on CKD stage II, likely secondary to ATN- baseline project management specialist 2.0-2.5- project management specialist 5.4 today, anemia of chronic disease- baseline hgb 10: - IVF as above - Avoid nephrotoxic agents and renally dose medications as appropriate - Follow PRP and UO - Nephrology consulted, appreciate recommendations HTN, HLD, sick sinus syndrome s/p pacemaker 04/26/17: - Hold Norvasc 10 mg PO qd, and Lipitor 40 mg PO qd due to NPO status - Continue Coreg 18.75 mg PO BID - IV Hydralazine PRN T2DM- last HgbA1c 5.0%: - Hold Glipizide while inpatient - BSG ACHS and ISS HIV: Continue Genvoya 1 tab PO qd and Prezista 800 mg PO HS once tolerating PO BPH: Hold Proscar 5 mg PO qd while NPO Glaucoma: Continue Latanoprost drops GI prophylaxis: IV Pepcid DVT prophylaxis: Heparin SQ BID Code Status: LEVEL I, FULL Dispo: From [facility]
--- NOTE | 2017-08-21 13:28 | Nephrology Progress Note ---
Nephrology Progress Note Date of Service Aug 21, 2017. Chief Complaint Follow-up for acute kidney injury with history of chronic kidney disease. Princess Ibarra was seen and examined in her room this morning. Overall she is doing well, has mild pain at the incision site but denies any shortness of breath or chest pain denies nausea. Had exploratory laparotomy yesterday for small bowel obstruction and successfully extubated. Renal function continues to worsen, creatinine 5.4 this morning, continues to have decent urine output, electrolyte electively acceptable. Review of Systems A complete review of systems was performed. Pertinent positives are noted above. All other systems are negative. Vital Signs Last 8 Hrs Date Time Temp Pulse Resp B/P (MAP) Pulse Ox O2 Delivery O2 Flow Rate FiO2 08/21/17 06:00 60 14 160/82 (111) 94 08/21/17 05:00 60 14 141/71 (87) 98 08/21/17 04:48 60 13 144/76 (98) 97 08/21/17 04:09 60 13 146/78 (98) 95 08/21/17 04:00 99 Oxymask 4.0 08/21/17 04:00 36.5 08/21/17 03:36 61 13 147/73 (93) 99 08/21/17 03:30 60 14 130/64 (88) 100 08/21/17 03:00 60 12 129/62 (80) 99 08/21/17 02:30 60 13 127/63 (84) 99 08/21/17 02:00 60 13 131/64 (83) 100 Last Recorded Weight Weight (Kilograms): 63.600 Physical Exam GENERAL: middle aged female, AAA x 3, ill -appearing, no distress. NECK: Supple, no JVD. RESPIRATORY: Normal breathing efforts, no accessory muscle use, clear to auscultation bilaterally, no wheezes or rales. CARDIOVASCULAR: S1, S2 normal, rate rhythm regular. ABDOMEN: Mild diffuse tenderness, dressing on exploratory laparotomy site, decreased BS EXTREMITY: No lower extremity edema NEURO: speech fluent. PSYCHIATRY: Normal mood and judgment Family History Diabetes mellitus Hypertension Social History Smokeless Tobacco Use: No Alcohol Use: none Drug Use: none Marital Status: single Housing Status: other ([facility]) Occupation: unemployed Laboratory Results Past 24 Hours 08/21/17 04:51 Red Blood Count 3.08, Mean Corpuscular Volume 94.2, Mean Corpuscular Hemoglobin 32.5, Mean Corpuscular Hemoglobin Concent 34.5, Mean Platelet Volume 10.4, Neutrophils (%) (Auto) 92.5, Lymphocytes (%) (Auto) 5.0, Monocytes (%) (Auto) 2.3, Eosinophils (%) (Auto) 0.0, Basophils (%) (Auto) 0.1, Neutrophils # (Auto) 7.63, Lymphocytes # (Auto) 0.41, Monocytes # (Auto) 0.19, Eosinophils # (Auto) 0.00, Basophils # (Auto) 0.01 08/21/17 04:51 Test 08/20/17 14:00 08/20/17 14:07 08/20/17 14:58 08/20/17 18:04 Bedside Blood Gas pH (LAB) 7.10 (7.35-7.45) 7.16 (7.35-7.45) Bedside Blood Gas pCO2 (LAB) 59 mmHg (35-46) 50 mmHg (35-46) Bedside Blood Gas pO2 (LAB) 139 mmHg (80-95) 84 mmHg (80-95) Bedside Blood Gas HCO3 (LAB) 18 meq/L (19-24) 18 meq/L (19-24) Bedside Blood Gas Total CO2 20 mEq/l (24-31) 19 mEq/l (24-31) Bedside Blood Gas Base Excess (LAB) -11.0 meq/L (-9-1.8) -11.0 meq/L (-9-1.8) Bedside Blood Gas O2 Saturation 98.0 % (90-95) 93.0 % (90-95) Bedside Glucose 158 mg/dl (70-99) 190 mg/dl (70-99) Test 08/20/17 23:24 08/21/17 04:51 08/21/17 05:10 08/21/17 06:00 Bedside Glucose 153 mg/dl (70-99) 156 mg/dl (70-99) White Blood Count 8.25 K/uL (4.8-10.8) Red Blood Count 3.08 M/uL (4.7-6.1) Hemoglobin 10.0 g/dL (14.0-18.0) Hematocrit 29.0 % (42-52) Mean Corpuscular Volume 94.2 fL (80-100) Mean Corpuscular Hemoglobin 32.5 pg (25-34) Mean Corpuscular Hemoglobin Concent 34.5 g/dl (32-36) Platelet Count 192 K/uL (130-400) Mean Platelet Volume 10.4 fL (7.4-10.4) Neutrophils (%) (Auto) 92.5 % Lymphocytes (%) (Auto) 5.0 % Monocytes (%) (Auto) 2.3 % Eosinophils (%) (Auto) 0.0 % Basophils (%) (Auto) 0.1 % Neutrophils # (Auto) 7.63 K/uL (1.4-6.5) Lymphocytes # (Auto) 0.41 K/uL (1.2-3.4) Monocytes # (Auto) 0.19 K/uL (0.11-0.59) Eosinophils # (Auto) 0.00 K/uL (0-0.5) Basophils # (Auto) 0.01 K/uL (0-0.2) RDW Standard Deviation 41.3 fL (36.4-46.3) RDW Coefficient of Variation 12.2 % (11.5-14.5) Immature Granulocyte % (Auto) 0.1 % Immature Granulocyte # (Auto) 0.01 K/uL (0.00-0.02) Anion Gap 8.0 mmol/L (3-11) Est Creatinine Clear Calc Drug Dose 11.8 ml/min Estimated GFR () 12.1 Estimated GFR (Non- 10.5 BUN/Creatinine Ratio 15.8 (10-20) Calcium Level 7.7 mg/dl (8.5-10.1) Phosphorus Level 6.1 mg/dl (2.5-4.9) Magnesium Level 2.9 mg/dl (1.8-2.4) Blood Gas Sample Site L Radial Bedside Blood Gas pH (LAB) 7.31 (7.35-7.45) Bedside Blood Gas pCO2 (LAB) 29 mmHg (35-46) Bedside Blood Gas pO2 (LAB) 62 mmHg (80-95) Bedside Blood Gas HCO3 (LAB) 15 meq/L (19-24) Bedside Blood Gas Total CO2 16 mEq/l (24-31) Bedside Blood Gas Base Excess (LAB) -12.0 meq/L (-9-1.8) Bedside Blood Gas O2 Saturation 90.0 % (90-95) Epi Test Pass Oxygen Delivery Device Other Bedside FiO2 0 % Allergies Coded Allergies: Penicillins (Verified Allergy, Intermediate, UNKNOWN, 08/17/17) Medications Current Inpatient Medications Medications (Trade) Dose Ordered Sig/Carlin Route Start Time Stop Time Status Last Admin Dose Admin Acetaminophen (Tylenol Tab) 650 mg Q4H PRN PO 08/17/17 13:45 09/16/17 13:44 08/18/17 09:17 650 MG Al Hydrox/Mg Hydrox/Simethicone (Maalox Max Susp) 15 ml Q4H PRN PO 08/17/17 13:45 09/16/17 13:44 08/18/17 21:37 15 ML Magnesium Hydroxide (Milk Of Magnesia Susp) 30 ml Q6H PRN PO 08/17/17 13:45 09/16/17 13:44 Polyethylene (Miralax Powder Packet) 17 gm DAILY PRN PO 08/17/17 15:00 09/16/17 14:59 Ondansetron HCl (Zofran Inj) 4 mg Q6H PRN IV 08/17/17 13:45 09/16/17 13:44 08/17/17 22:45 4 MG Heparin Sodium (Porcine) (Heparin Sq 5000 Unit/0.5ml) 5,000 unit Q12H SQ 08/17/17 21:00 09/16/17 20:59 08/21/17 08:06 5,000 UNIT Glucose (Glucose 40% Gel) 15-30 GRAMS 15 GRAMS... UD PRN PO 08/17/17 13:45 09/16/17 13:44 Glucose (Glucose Chew Tab) 4-8 Tablets 4 Tabl... UD PRN PO 08/17/17 13:45 09/16/17 13:44 Dextrose (Dextrose 50% 50ML Syringe) 25-50ML OF 50% DW IV FOR... UD PRN IV 08/17/17 13:45 09/16/17 13:44 Glucagon (Glucagon Inj) 1 mg UD PRN SQ 08/17/17 13:45 09/16/17 13:44 Latanoprost (Xalatan Oph Soln) 1 drops HS OPB 08/17/17 21:00 09/16/17 20:59 08/20/17 21:32 1 DROPS Sodium Chloride 1,000 ml @ 100 mls/hr Q10H IV 08/17/17 15:30 09/16/17 15:29 08/21/17 03:44 100 MLS/HR Amlodipine Besylate (Norvasc Tab) 10 mg DAILY PO 08/18/17 09:00 09/17/17 08:59 Future Hold 08/18/17 09:03 10 MG Atorvastatin Calcium (Lipitor Tab) 40 mg QAM PO 08/18/17 09:00 09/17/17 08:59 Future Hold 08/18/17 09:03 40 MG Carvedilol (Coreg Tab) 18.75 mg BID PO 08/17/17 21:00 09/16/17 20:59 08/21/17 08:04 18.75 MG Finasteride (Proscar Tab) 5 mg DAILY PO 08/18/17 09:00 09/17/17 08:59 Future Hold 08/18/17 09:03 5 MG Non-Formulary Medication (Darunavir Ethanolate (Prezista)) 800 mg HS PO 08/17/17 21:00 09/16/17 20:59 UNV Elvitegravir/ Cobicis/Emtricit/ Tenof (Genvoya [phone] Mg) 1 tab DAILY PO 08/18/17 09:00 09/17/17 08:59 Future Hold 08/18/17 09:17 1 TAB Morphine Sulfate (MoRPHine SULFATE INJ) 4 mg Q4H PRN IV 08/17/17 14:15 08/31/17 14:14 08/18/17 21:41 4 MG Famotidine 20 mg/ Syringe 5 ml @ 2.5 mls/min Q12H IV 08/18/17 19:00 09/17/17 18:59 08/21/17 06:03 2.5 MLS/MIN Zolpidem Tartrate (Ambien Tab) 5 mg HS PRN PO 08/18/17 22:00 09/17/17 21:59 Future Hold 08/18/17 23:16 5 MG Hydralazine HCl (HydrALAZINE INJ) 10 mg Q6H PRN IV. 08/19/17 10:30 09/18/17 10:29 Insulin Aspart (novoLOG ASPART) SLIDING SCALE If C... Q6 SC 08/19/17 12:00 09/18/17 11:59 08/20/17 18:34 1 UNITS Ciprofloxacin/ Dextrose 400 mg/ Prmx 200 ml @ 100 mls/hr Q24H IV 08/19/17 16:00 08/29/17 15:59 08/20/17 16:35 100 MLS/HR Metronidazole 500 mg/Prmx 100 ml @ 100 mls/hr Q8H IV 08/19/17 14:30 08/29/17 14:29 08/21/17 06:02 100 MLS/HR Ciprofloxacin (Consult) 1 ea UD PRN N/A 08/19/17 14:15 09/18/17 14:14 Menthol (Nice Nory) 1 nory Q1H PRN PO 08/19/17 18:45 09/18/17 18:44 08/19/17 18:53 1 NORY Albuterol/ Ipratropium (Duoneb) 3 ml Q6H PRN INH 08/20/17 12:00 09/18/17 11:59 08/20/17 19:58 3 ML Hydromorphone HCl (Dilaudid Inj) 0.5 mg Q3H PRN IV 08/20/17 13:30 09/03/17 13:29 08/21/17 08:16 0.5 MG Hydromorphone HCl (Dilaudid Inj) 1 mg Q3H PRN IV 08/20/17 13:30 09/03/17 13:29 Impression (1) Acute kidney injury (2) CKD (chronic kidney disease), stage III (3) SBO (small bowel obstruction) (4) Proteinuria (5) Anemia (6) HTN (hypertension) (7) HIV (human immunodeficiency virus infection) Stacey Is a 60-year-old female with past medical history significant for hypertension, chronic kidney disease, HIV admitted to the hospital with SBO. She has stage III chronic kidney disease, baseline creatinine around 2-2.5. On admission creatinine was 2.5 which is close to her baseline however this morning creatinine worsened further to 3.4. Acute kidney injury most likely secondary to ATN with history of significantly decreased p.o. intake with small- bowel obstruction and clinically she was clearly volume depleted. CT abdomen pelvis without any evidence hydronephrosis. She has been voiding normally. Chronic kidney disease could be secondary to hypertensive/diabetic nephropathy but possibility for intrinsic glomerular disease such as FSGS with HIV or nephropathy from anti-retroviral medication remains. As small-bowel obstruction worsen she had exploratory laparotomy on 08/20/2017 and found to have abdominal abscesses from ruptured appendix. Postoperatively she was extubated successfully and overall currently doing better. Renal function continues to worsen creatinine 5.4 however blood pressure, electrolyte and volume status relatively acceptable. Continues to make decent amount of urine. Recommendations --renal function continues to decline however volume status seems stable and electrolytes are reasonably acceptable --no urgent need for dialysis, will continue to monitor closely --would hold nephrotoxic medication including TATE-inhibitor/ARB spell --monitor intake and output will follow
[2017-08-21] MEDS: CIPROFLOXACIN / D5W 400 MG in PREMIXED IN D5W 200 ML IV SCH (16:08)
[2017-08-21] MEDS: LATANOPROST 0.005% OP SOLN 2.5 ML BTL OPB SCH (21:31)
[2017-08-22] VITALS (9 sets, daily range): BP systolic 160–175; BP diastolic 73–84; PULSE 59–67; TEMP 36.4–37; O2SAT 91–96
[2017-08-22] MEDS: HydrALAZINE HCL 20 MG/ML VIAL IV. PRN (04:13)
[2017-08-22] MEDS: SODIUM CHLORIDE 0.9% 1000ML 1,000 ML IV SCH ×2 (05:32→15:33)
[2017-08-22] MEDS: INSULIN ASPART 100 UNITS/ML 3 ML PEN SC SCH ×5 (06:00→21:00)
[2017-08-22] MEDS: METRONIDAZOLE / NSS 500 MG in PREMIXED NSS 100 ML IV SCH ×3 (06:14→22:05)
[2017-08-22 07:50] LABS: HEMATOCRIT 30.1 % (42-52); HEMOGLOBIN 10.4 g/dL (14.0-18.0); MEAN CELL VOLUME 92.3 fL (80-100); MEAN CORPUSCULAR HEMOGLOBIN 31.9 pg (25-34); MEAN CORPUSCULAR HGB CONC 34.6 g/dl (32-36); MEAN PLATELET VOLUME 10.5 fL (7.4-10.4); PLATELET COUNT 232 K/uL (130-400); RED CELL DISTRIBUTION WIDTH CV 12.5 % (11.5-14.5); RED CELL DISTRIBUTION WIDTH SD 41.8 fL (36.4-46.3); WHITE BLOOD COUNT 10.53 K/uL (4.8-10.8)
[2017-08-22 08:37] LABS: CALCIUM 8.2 mg/dl (8.5-10.1); CREATININE 4.85 mg/dl (0.60-1.40); POTASSIUM 4.4 mmol/L (3.5-5.1)
[2017-08-22] MEDS: CARVEDILOL 12.5 MG TAB PO SCH ×2 (10:21→21:21)
[2017-08-22] MEDS: HEPARIN SOD 5000 UNIT/0.5 ML CARP SQ SCH ×2 (10:24→21:00)
[2017-08-22] MEDS: FAMOTIDINE IV INJ 20 MG in SYRINGE 3 ML IV SCH ×2 (10:24→18:29)
--- NOTE | 2017-08-22 10:25 | Surgery Progress Note ---
Surgery Progress Note Date of Service Aug 22, 2017. Subjective + feeling well doing better, passed gas, no abdominal pain, NGT 15ml, JAKOB 100ml Objective Vital Signs: Date Time Temp Pulse Resp B/P (MAP) Pulse Ox O2 Delivery O2 Flow Rate FiO2 08/22/17 07:43 36.4 62 19 175/78 (110) 94 Room Air 08/22/17 04:00 93 Nasal Cannula 2.0 08/22/17 03:35 36.4 60 18 174/84 (114) 93 Nasal Cannula 2.0 08/22/17 00:00 96 Nasal Cannula 2.0 08/21/17 23:14 36.7 59 20 166/80 (108) 96 Nasal Cannula 1.5 08/21/17 21:28 60 166/71 (102) 08/21/17 20:00 96 Nasal Cannula 2.0 08/21/17 19:04 36.8 61 18 163/77 (105) 92 Nasal Cannula 2.0 08/21/17 16:00 Room Air 08/21/17 16:00 36.5 61 18 162/82 (108) 93 Nasal Cannula 2.0 08/21/17 14:01 62 23 166/80 (108) 92 Nasal Cannula 2.0 08/21/17 12:00 36.4 60 12 162/81 (108) 92 Nasal Cannula 2.0 08/21/17 12:00 Room Air General Appearance: WD/WN Head: normocephalic Neck: supple, no JVD Respiratory/Chest: chest non-tender, lungs clear Cardiovascular: regular rate, rhythm, no edema, no gallop, no JVD Abdomen: normal bowel sounds, non tender, non distended, soft, no organomegaly Incision(s): clean, dry, intact Extremities: normal range of motion, non-tender, normal inspection Laboratory Results: Results Past 24 Hours Test 08/21/17 12:09 08/21/17 15:56 08/22/17 00:10 08/22/17 06:09 Range/Units Bedside Glucose 187 189 179 172 70-99 mg/dl Test 08/22/17 07:19 Range/Units White Blood Count 10.53 4.8-10.8 K/uL Red Blood Count 3.26 4.7-6.1 M/uL Hemoglobin 10.4 14.0-18.0 g/dL Hematocrit 30.1 42-52 % Mean Corpuscular Volume 92.3 80-100 fL Mean Corpuscular Hemoglobin 31.9 25-34 pg Mean Corpuscular Hemoglobin Concent 34.6 32-36 g/dl RDW Standard Deviation 41.8 36.4-46.3 fL RDW Coefficient of Variation 12.5 11.5-14.5 % Platelet Count 232 130-400 K/uL Mean Platelet Volume 10.5 7.4-10.4 fL Sodium Level 144 136-145 mmol/L Potassium Level 4.4 3.5-5.1 mmol/L Chloride Level 117 98-107 mmol/L Carbon Dioxide Level 16 21-32 mmol/L Anion Gap 10.0 3-11 mmol/L Blood Urea Nitrogen 98 7-18 mg/dl Creatinine 4.85 0.60-1.40 mg/dl Est Creatinine Clear Calc Drug Dose 13.1 ml/min Estimated GFR () 13.7 Estimated GFR (Non- 11.8 BUN/Creatinine Ratio 20.1 10-20 Random Glucose 184 70-99 mg/dl Calcium Level 8.2 8.5-10.1 mg/dl Assessment & Plan F/U S/P xep lap appendectomy acute renal failure recommend consult nephologist for acute renal failure, repeat labs in am continue treatment will F/U 08/22 2017 doing better, D/C NGT clear diet will F/U F/U S/P xep lap appendectomy acute renal failure recommend consult nephologist for acute renal failure, repeat labs in am continue treatment will F/U
[2017-08-22] MEDS ORDERED: BISACODYL 5 MG TABEC PO ONE (10:30)
--- NOTE | 2017-08-22 11:42 | Nephrology Progress Note ---
Nephrology Progress Note Date of Service Aug 22, 2017. Chief Complaint Follow-up for acute kidney injury with history of chronic kidney disease. Princess Ibarra was seen and examined in her room this morning. Overall she is doing well, denies any shortness of breath or chest pain denies nausea. Recovering form exploratory laparotomy, passing gas. No significant improvement in renal function, creatinine slightly better at 4.9 this morning, continues to have decent urine output, electrolyte acceptable. Left upper extremity swelling. Review of Systems A complete review of systems was performed. Pertinent positives are noted above. All other systems are negative. Vital Signs Last 8 Hrs Date Time Temp Pulse Resp B/P (MAP) Pulse Ox O2 Delivery O2 Flow Rate FiO2 08/22/17 07:43 36.4 62 19 175/78 (110) 94 Room Air 08/22/17 04:00 93 Nasal Cannula 2.0 08/22/17 03:35 36.4 60 18 174/84 (114) 93 Nasal Cannula 2.0 Last Recorded Weight Weight (Kilograms): 63.600 Physical Exam GENERAL: Middle-aged is transgender female , AAA x 3, pleasant, not in any distress. NECK: Supple, no JVD. RESPIRATORY: Normal breathing efforts, no accessory muscle use, clear to auscultation bilaterally, no wheezes or rales. CARDIOVASCULAR: S1, S2 normal, rate rhythm regular. EXTREMITY: No lower extremity edema, left upper extremity swelling NEURO: speech fluent. PSYCHIATRY: Normal mood and judgment Family History Diabetes mellitus Hypertension Social History Smokeless Tobacco Use: No Alcohol Use: none Drug Use: none Marital Status: single Housing Status: other ([facility]) Occupation: unemployed Laboratory Results Past 24 Hours 08/22/17 07:19 08/22/17 07:19 Test 08/21/17 12:09 08/21/17 15:56 08/22/17 00:10 08/22/17 06:09 Bedside Glucose 187 mg/dl (70-99) 189 mg/dl (70-99) 179 mg/dl (70-99) 172 mg/dl (70-99) Test 08/22/17 07:19 Red Blood Count 3.26 M/uL (4.7-6.1) Mean Corpuscular Volume 92.3 fL (80-100) Mean Corpuscular Hemoglobin 31.9 pg (25-34) Mean Corpuscular Hemoglobin Concent 34.6 g/dl (32-36) RDW Standard Deviation 41.8 fL (36.4-46.3) RDW Coefficient of Variation 12.5 % (11.5-14.5) Mean Platelet Volume 10.5 fL (7.4-10.4) Anion Gap 10.0 mmol/L (3-11) Est Creatinine Clear Calc Drug Dose 13.1 ml/min Estimated GFR () 13.7 Estimated GFR (Non- 11.8 BUN/Creatinine Ratio 20.1 (10-20) Calcium Level 8.2 mg/dl (8.5-10.1) Allergies Coded Allergies: Penicillins (Verified Allergy, Intermediate, UNKNOWN, 08/17/17) Medications Current Inpatient Medications Medications (Trade) Dose Ordered Sig/Carlin Route Start Time Stop Time Status Last Admin Dose Admin Acetaminophen (Tylenol Tab) 650 mg Q4H PRN PO 08/17/17 13:45 09/16/17 13:44 08/18/17 09:17 650 MG Al Hydrox/Mg Hydrox/Simethicone (Maalox Max Susp) 15 ml Q4H PRN PO 08/17/17 13:45 09/16/17 13:44 08/18/17 21:37 15 ML Magnesium Hydroxide (Milk Of Magnesia Susp) 30 ml Q6H PRN PO 08/17/17 13:45 09/16/17 13:44 Polyethylene (Miralax Powder Packet) 17 gm DAILY PRN PO 08/17/17 15:00 09/16/17 14:59 Ondansetron HCl (Zofran Inj) 4 mg Q6H PRN IV 08/17/17 13:45 09/16/17 13:44 08/17/17 22:45 4 MG Heparin Sodium (Porcine) (Heparin Sq 5000 Unit/0.5ml) 5,000 unit Q12H SQ 08/17/17 21:00 09/16/17 20:59 08/22/17 10:24 5,000 UNIT Glucose (Glucose 40% Gel) 15-30 GRAMS 15 GRAMS... UD PRN PO 08/17/17 13:45 09/16/17 13:44 Glucose (Glucose Chew Tab) 4-8 Tablets 4 Tabl... UD PRN PO 08/17/17 13:45 09/16/17 13:44 Dextrose (Dextrose 50% 50ML Syringe) 25-50ML OF 50% DW IV FOR... UD PRN IV 08/17/17 13:45 09/16/17 13:44 Glucagon (Glucagon Inj) 1 mg UD PRN SQ 08/17/17 13:45 09/16/17 13:44 Latanoprost (Xalatan Oph Soln) 1 drops HS OPB 08/17/17 21:00 09/16/17 20:59 08/21/17 21:31 1 DROPS Sodium Chloride 1,000 ml @ 100 mls/hr Q10H IV 08/17/17 15:30 09/16/17 15:29 08/22/17 05:32 100 MLS/HR Amlodipine Besylate (Norvasc Tab) 10 mg DAILY PO 08/18/17 09:00 09/17/17 08:59 Future Hold 08/18/17 09:03 10 MG Atorvastatin Calcium (Lipitor Tab) 40 mg QAM PO 08/18/17 09:00 09/17/17 08:59 Future Hold 08/18/17 09:03 40 MG Carvedilol (Coreg Tab) 18.75 mg BID PO 08/17/17 21:00 09/16/17 20:59 08/22/17 10:21 18.75 MG Finasteride (Proscar Tab) 5 mg DAILY PO 08/18/17 09:00 09/17/17 08:59 Future Hold 08/18/17 09:03 5 MG Non-Formulary Medication (Darunavir Ethanolate (Prezista)) 800 mg HS PO 08/17/17 21:00 09/16/17 20:59 UNV Elvitegravir/ Cobicis/Emtricit/ Tenof (Genvoya [id number] Mg) 1 tab DAILY PO 08/18/17 09:00 09/17/17 08:59 Future Hold 08/18/17 09:17 1 TAB Morphine Sulfate (MoRPHine SULFATE INJ) 4 mg Q4H PRN IV 08/17/17 14:15 08/31/17 14:14 08/18/17 21:41 4 MG Famotidine 20 mg/ Syringe 5 ml @ 2.5 mls/min Q12H IV 08/18/17 19:00 09/17/17 18:59 08/22/17 10:24 2.5 MLS/MIN Zolpidem Tartrate (Ambien Tab) 5 mg HS PRN PO 08/18/17 22:00 09/17/17 21:59 Future Hold 08/18/17 23:16 5 MG Hydralazine HCl (HydrALAZINE INJ) 10 mg Q6H PRN IV. 08/19/17 10:30 09/18/17 10:29 08/22/17 04:13 10 MG Insulin Aspart (novoLOG ASPART) SLIDING SCALE If C... Q6 SC 08/19/17 12:00 09/18/17 11:59 08/21/17 16:11 1 UNITS Ciprofloxacin/ Dextrose 400 mg/ Prmx 200 ml @ 100 mls/hr Q24H IV 08/19/17 16:00 08/29/17 15:59 08/21/17 16:08 100 MLS/HR Metronidazole 500 mg/Prmx 100 ml @ 100 mls/hr Q8H IV 08/19/17 14:30 08/29/17 14:29 08/22/17 06:14 100 MLS/HR Ciprofloxacin (Consult) 1 ea UD PRN N/A 08/19/17 14:15 09/18/17 14:14 Menthol (Nice Nory) 1 nory Q1H PRN PO 08/19/17 18:45 09/18/17 18:44 08/19/17 18:53 1 NORY Albuterol/ Ipratropium (Duoneb) 3 ml Q6H PRN INH 08/20/17 12:00 09/18/17 11:59 08/20/17 19:58 3 ML Hydromorphone HCl (Dilaudid Inj) 0.5 mg Q3H PRN IV 08/20/17 13:30 09/03/17 13:29 08/21/17 08:16 0.5 MG Hydromorphone HCl (Dilaudid Inj) 1 mg Q3H PRN IV 08/20/17 13:30 09/03/17 13:29 Bisacodyl (Dulcolax Tab) 5 mg NOW ONCE PO 08/22/17 10:30 08/22/17 10:31 UNV Impression (1) Acute kidney injury (2) CKD (chronic kidney disease), stage III (3) SBO (small bowel obstruction) (4) Proteinuria (5) Anemia (6) HTN (hypertension) (7) HIV (human immunodeficiency virus infection) Stacey Is a 60-year-old female with past medical history significant for hypertension, chronic kidney disease, HIV admitted to the hospital with SBO. She has stage III chronic kidney disease, baseline creatinine around 2-2.5. On admission creatinine was 2.5 which continues to worsen. Acute kidney injury most likely secondary to ATN with history of significantly decreased p.o. intake with small-bowel obstruction and clinically she was clearly volume depleted. CT abdomen pelvis without any evidence hydronephrosis. She has been voiding normally. Chronic kidney disease could be secondary to hypertensive/ diabetic nephropathy but possibility for intrinsic glomerular disease such as FSGS with HIV or nephropathy from anti-retroviral medication remains. As small-bowel obstruction worsen she had exploratory laparotomy on 08/20/2017 and found to have abdominal abscesses from ruptured appendix. Postoperatively she was extubated successfully and overall currently doing better. No significant improvement in renal function, creatinine slightly better at 4.9 this morning however blood pressure, electrolyte and volume status relatively acceptable. Continues to make decent amount of urine. Recommendations --no significant improvement in renal function, however volume status seems stable and electrolytes are reasonably acceptable --no need for dialysis, will continue to monitor closely --suggest stopping IV fluid as patient started orally on clear liquid --consider left upper extremity Doppler for evidence of DVT,/thrombophlebitis --would hold nephrotoxic medication including TATE-inhibitor/ARB --monitor intake and output will follow
--- NOTE | 2017-08-22 12:41 | Hospitalist Progress Note ---
Hospitalist Progress Note Date of Service Aug 22, 2017. Subjective Pt evaluation today including: conversation w/ patient, physical exam, lab review, review of inpatient medication list Voiding: velazquez catheter in place Patient resting in bed. Currently NPO w/ NG tube- little output. Very bothered by tubing. No pain. +flatus. No BM Patient denies any fever, chills, sweats, lightheadedness, dizziness, vision changes, CP, palpitations, edema, SOB, wheezing, cough, abdominal pain, nausea, vomiting, diarrhea, urinary symptoms, melena, numbness/tingling, weakness, muscle/joint pain, anxiety/depression, active bleeding, or new skin discoloration/changes. Medications Current Inpatient Medications Medications (Trade) Dose Ordered Sig/Carlin Route Start Time Stop Time Status Last Admin Dose Admin Acetaminophen (Tylenol Tab) 650 mg Q4H PRN PO 08/17/17 13:45 09/16/17 13:44 08/18/17 09:17 650 MG Al Hydrox/Mg Hydrox/Simethicone (Maalox Max Susp) 15 ml Q4H PRN PO 08/17/17 13:45 09/16/17 13:44 08/18/17 21:37 15 ML Magnesium Hydroxide (Milk Of Magnesia Susp) 30 ml Q6H PRN PO 08/17/17 13:45 09/16/17 13:44 Polyethylene (Miralax Powder Packet) 17 gm DAILY PRN PO 08/17/17 15:00 09/16/17 14:59 Ondansetron HCl (Zofran Inj) 4 mg Q6H PRN IV 08/17/17 13:45 09/16/17 13:44 08/17/17 22:45 4 MG Heparin Sodium (Porcine) (Heparin Sq 5000 Unit/0.5ml) 5,000 unit Q12H SQ 08/17/17 21:00 09/16/17 20:59 08/22/17 10:24 5,000 UNIT Glucose (Glucose 40% Gel) 15-30 GRAMS 15 GRAMS... UD PRN PO 08/17/17 13:45 09/16/17 13:44 Glucose (Glucose Chew Tab) 4-8 Tablets 4 Tabl... UD PRN PO 08/17/17 13:45 09/16/17 13:44 Dextrose (Dextrose 50% 50ML Syringe) 25-50ML OF 50% DW IV FOR... UD PRN IV 08/17/17 13:45 09/16/17 13:44 Glucagon (Glucagon Inj) 1 mg UD PRN SQ 08/17/17 13:45 09/16/17 13:44 Latanoprost (Xalatan Oph Soln) 1 drops HS OPB 08/17/17 21:00 09/16/17 20:59 08/21/17 21:31 1 DROPS Sodium Chloride 1,000 ml @ 100 mls/hr Q10H IV 08/17/17 15:30 09/16/17 15:29 08/22/17 05:32 100 MLS/HR Amlodipine Besylate (Norvasc Tab) 10 mg DAILY PO 08/18/17 09:00 09/17/17 08:59 Future Hold 08/18/17 09:03 10 MG Atorvastatin Calcium (Lipitor Tab) 40 mg QAM PO 08/18/17 09:00 09/17/17 08:59 Future Hold 08/18/17 09:03 40 MG Carvedilol (Coreg Tab) 18.75 mg BID PO 08/17/17 21:00 09/16/17 20:59 08/22/17 10:21 18.75 MG Finasteride (Proscar Tab) 5 mg DAILY PO 08/18/17 09:00 09/17/17 08:59 Future Hold 08/18/17 09:03 5 MG Non-Formulary Medication (Darunavir Ethanolate (Prezista)) 800 mg HS PO 08/17/17 21:00 09/16/17 20:59 UNV Elvitegravir/ Cobicis/Emtricit/ Tenof (Genvoya [phone] Mg) 1 tab DAILY PO 08/18/17 09:00 09/17/17 08:59 Future Hold 08/18/17 09:17 1 TAB Morphine Sulfate (MoRPHine SULFATE INJ) 4 mg Q4H PRN IV 08/17/17 14:15 08/31/17 14:14 08/18/17 21:41 4 MG Famotidine 20 mg/ Syringe 5 ml @ 2.5 mls/min Q12H IV 08/18/17 19:00 09/17/17 18:59 08/22/17 10:24 2.5 MLS/MIN Zolpidem Tartrate (Ambien Tab) 5 mg HS PRN PO 08/18/17 22:00 09/17/17 21:59 Future Hold 08/18/17 23:16 5 MG Hydralazine HCl (HydrALAZINE INJ) 10 mg Q6H PRN IV. 08/19/17 10:30 09/18/17 10:29 08/22/17 04:13 10 MG Insulin Aspart (novoLOG ASPART) SLIDING SCALE If C... Q6 SC 08/19/17 12:00 09/18/17 11:59 08/21/17 16:11 1 UNITS Ciprofloxacin/ Dextrose 400 mg/ Prmx 200 ml @ 100 mls/hr Q24H IV 08/19/17 16:00 08/29/17 15:59 08/21/17 16:08 100 MLS/HR Metronidazole 500 mg/Prmx 100 ml @ 100 mls/hr Q8H IV 08/19/17 14:30 08/29/17 14:29 08/22/17 06:14 100 MLS/HR Ciprofloxacin (Consult) 1 ea UD PRN N/A 08/19/17 14:15 09/18/17 14:14 Menthol (Nice Nory) 1 nory Q1H PRN PO 08/19/17 18:45 09/18/17 18:44 08/19/17 18:53 1 NORY Albuterol/ Ipratropium (Duoneb) 3 ml Q6H PRN INH 08/20/17 12:00 09/18/17 11:59 08/20/17 19:58 3 ML Hydromorphone HCl (Dilaudid Inj) 0.5 mg Q3H PRN IV 08/20/17 13:30 09/03/17 13:29 08/21/17 08:16 0.5 MG Hydromorphone HCl (Dilaudid Inj) 1 mg Q3H PRN IV 08/20/17 13:30 09/03/17 13:29 Objective Vital Signs Date Time Temp Pulse Resp B/P (MAP) Pulse Ox O2 Delivery O2 Flow Rate FiO2 08/22/17 11:15 36.7 64 18 160/78 (105) 93 Room Air 08/22/17 07:43 36.4 62 19 175/78 (110) 94 Room Air 08/22/17 04:00 93 Nasal Cannula 2.0 08/22/17 03:35 36.4 60 18 174/84 (114) 93 Nasal Cannula 2.0 08/22/17 00:00 96 Nasal Cannula 2.0 08/21/17 23:14 36.7 59 20 166/80 (108) 96 Nasal Cannula 1.5 08/21/17 21:28 60 166/71 (102) 08/21/17 20:00 96 Nasal Cannula 2.0 08/21/17 19:04 36.8 61 18 163/77 (105) 92 Nasal Cannula 2.0 08/21/17 16:00 Room Air 08/21/17 16:00 36.5 61 18 162/82 (108) 93 Nasal Cannula 2.0 08/21/17 14:01 62 23 166/80 (108) 92 Nasal Cannula 2.0 Physical Exam General Appearance: no apparent distress Eyes: normal inspection, PERRL ENT: hearing grossly normal, + pertinent finding (NG tube) Neck: supple Respiratory/Chest: lungs clear, no respiratory distress, no accessory muscle use Cardiovascular: regular rate, rhythm Abdomen: normal bowel sounds, soft, + tenderness (tenderness around incision site ), + pertinent finding (incision site banadage C/D/I) Extremities: no pedal edema, no calf tenderness Neurologic/Psychiatric: alert, normal mood/affect, oriented x 3 Skin: normal color, warm/dry, no rash Laboratory Results Last 24 Hours Test 08/21/17 15:56 08/22/17 00:10 08/22/17 06:09 08/22/17 07:19 Bedside Glucose 189 mg/dl 179 mg/dl 172 mg/dl White Blood Count 10.53 K/uL Red Blood Count 3.26 M/uL Hemoglobin 10.4 g/dL Hematocrit 30.1 % Mean Corpuscular Volume 92.3 fL Mean Corpuscular Hemoglobin 31.9 pg Mean Corpuscular Hemoglobin Concent 34.6 g/dl RDW Standard Deviation 41.8 fL RDW Coefficient of Variation 12.5 % Platelet Count 232 K/uL Mean Platelet Volume 10.5 fL Sodium Level 144 mmol/L Potassium Level 4.4 mmol/L Chloride Level 117 mmol/L Carbon Dioxide Level 16 mmol/L Anion Gap 10.0 mmol/L Blood Urea Nitrogen 98 mg/dl Creatinine 4.85 mg/dl Est Creatinine Clear Calc Drug Dose 13.1 ml/min Estimated GFR () 13.7 Estimated GFR (Non- 11.8 BUN/Creatinine Ratio 20.1 Random Glucose 184 mg/dl Calcium Level 8.2 mg/dl Test 08/22/17 11:37 Bedside Glucose 178 mg/dl Assessment and Plan 61 y/o transgender female with a history of HTN, HLD, sick sinus syndrome s/p pacemaker 04/26/17, DM II, CKD stage III, anemia of chronic disease, and HIV who presented to the ED on 08/16 from [facility] with abdominal pain, nausea and vomiting. Pt afebrile, VSS on arrival. O2 sat did drop to 85%, placed on 2L NC. CXR with possible left base consolidation vs atelectasis. CT abdomen/ pelvis with distal small bowel obstructive change and inflammatory change of the appendix with associated appendicolith. Creatinine 2.50, elevated above baseline. POC lactic acid 2.15. LFTs elevated. s/p ex-lap on 08/[address] Elizabeth for SBO, finding ruptured appendicitis with abscess formation: - NPO- NG tube placed on 08/19- removed on 08/22 and diet advanced to clears - IV NSS @ 100 ml/hr- ECHO from 04/2017 w/ preserved EF - Morphine 4 mg IV q4h, IV Dilaudid PRN for pain management - IV Cipro + Flagyl - General surgery consulted, appreciate recommendations- surgical management as per surgery - GI consulted, appreciate recommendations Acute respiratory and metabolic acidosis- STABLE: - ICU due to postop anesthesia complications/renal failure- STABLE- transferred to tele on 08/21 and med/surg on 08/22 - DuoNebs QID and PRN LEEROY on CKD stage II, likely secondary to ATN- baseline workers compensation coordinator 2.0-2.5- workers compensation coordinator 4.85 today, anemia of chronic disease- baseline hgb 10: - IVF as above - Avoid nephrotoxic agents and renally dose medications as appropriate - Follow PRP and UO - Nephrology consulted, appreciate recommendations HTN, HLD, sick sinus syndrome s/p pacemaker 04/26/17: - Lipitor 40 mg PO qd held until tolerating full PO intake - Resume Norvasc hypertensive - Continue Coreg 18.75 mg PO BID - IV Hydralazine PRN T2DM- last HgbA1c 5.0%: - Hold Glipizide while inpatient - BSG ACHS and ISS HIV: Continue Genvoya 1 tab PO qd and Prezista 800 mg PO HS once tolerating PO intake BPH: Hold Proscar 5 mg PO qd until tolerating full PO intake Glaucoma: Continue Latanoprost drops GI prophylaxis: IV Pepcid DVT prophylaxis: Heparin SQ BID Code Status: LEVEL I, FULL Dispo: From [facility]
[2017-08-22] MEDS ORDERED: AMLODIPINE BESYLATE 5 MG TAB PO ONE (13:00)
[2017-08-22] MEDS ORDERED: NURSING VERBAL MED ORDER ONE (15:15)
[2017-08-22] MEDS ORDERED: BISACODYL 5 MG TABEC ONE (15:19)
[2017-08-22] MEDS: CIPROFLOXACIN / D5W 400 MG in PREMIXED IN D5W 200 ML IV SCH (15:33)
[2017-08-22] MEDS: ONDANSETRON INJ 2 MG/ML 2 ML VIAL IV PRN (18:59)
[2017-08-22] MEDS: HYDROmorphone INJ 1 MG/ML SYR IV PRN (19:47)
[2017-08-22] MEDS: LATANOPROST 0.005% OP SOLN 2.5 ML BTL OPB SCH (21:21)
[2017-08-23 00:15] VITALS: BP 163/76; PULSE 64; TEMP 36.8; O2SAT 91
[2017-08-23] MEDS: SODIUM CHLORIDE 0.9% 1000ML 1,000 ML IV SCH (01:59)
[2017-08-23] MEDS: ONDANSETRON INJ 2 MG/ML 2 ML VIAL IV PRN (05:47)
[2017-08-23] MEDS: METRONIDAZOLE / NSS 500 MG in PREMIXED NSS 100 ML IV SCH ×3 (05:47→22:09)
--- NOTE | 2017-08-23 06:29 | Surgery Progress Note ---
Surgery Progress Note Date of Service Aug 23, 2017. Subjective pt had episode of emesis- feels bloated good urine output Objective Vital Signs: Date Time Temp Pulse Resp B/P (MAP) Pulse Ox O2 Delivery O2 Flow Rate FiO2 08/23/17 00:15 36.8 64 16 163/76 (105) 91 Room Air 08/23/17 00:10 Room Air 08/22/17 21:19 67 16 160/75 (103) 94 Room Air 08/22/17 15:31 36.5 67 17 171/73 (105) 94 Room Air 08/22/17 15:30 Room Air 08/22/17 14:30 37.0 59 16 91 2.0 08/22/17 14:30 37.0 59 16 166/77 (106) 91 Room Air 08/22/17 11:15 36.7 64 18 160/78 (105) 93 Room Air 08/22/17 08:00 94 08/22/17 07:43 36.4 62 19 175/78 (110) 94 Room Air General Appearance: no apparent distress Respiratory/Chest: no respiratory distress Abdomen: + distended, + pertinent finding (some bowel sounds) Incision(s): intact, drainage (serous drainage) Laboratory Results: Results Past 24 Hours Test 08/22/17 07:19 08/22/17 11:37 08/22/17 17:12 08/22/17 20:40 Range/Units White Blood Count 10.53 4.8-10.8 K/uL Red Blood Count 3.26 4.7-6.1 M/uL Hemoglobin 10.4 14.0-18.0 g/dL Hematocrit 30.1 42-52 % Mean Corpuscular Volume 92.3 80-100 fL Mean Corpuscular Hemoglobin 31.9 25-34 pg Mean Corpuscular Hemoglobin Concent 34.6 32-36 g/dl RDW Standard Deviation 41.8 36.4-46.3 fL RDW Coefficient of Variation 12.5 11.5-14.5 % Platelet Count 232 130-400 K/uL Mean Platelet Volume 10.5 7.4-10.4 fL Sodium Level 144 136-145 mmol/L Potassium Level 4.4 3.5-5.1 mmol/L Chloride Level 117 98-107 mmol/L Carbon Dioxide Level 16 21-32 mmol/L Anion Gap 10.0 3-11 mmol/L Blood Urea Nitrogen 98 7-18 mg/dl Creatinine 4.85 0.60-1.40 mg/dl Est Creatinine Clear Calc Drug Dose 13.1 ml/min Estimated GFR () 13.7 Estimated GFR (Non- 11.8 BUN/Creatinine Ratio 20.1 10-20 Random Glucose 184 70-99 mg/dl Calcium Level 8.2 8.5-10.1 mg/dl Bedside Glucose 178 196 181 70-99 mg/dl Test 08/23/17 04:44 Range/Units Assessment & Plan 08/23/17- pt s/p laparotomy , lysis of adhesions, drainage abd abscess appendectomy- at risk for ileus- vomited- check film, clears only if vomits again will need NG- order periph tpn- may need Picc line ambulate 08/20/17- GI evaluation noted- on IV atbx- distention of abd same or worse will try to give some contrast via NG and rescan pt- no IV contrast considering abd exploration- will also discuss with GI 08/19/17- Persistent distention- ? gastric, ? bowel- atypical for mechanical sbo - will have NG placed, check labs, will possibly need contrast study but will not tolerate po- ask GI to see . may come explor lap if does not resolve 08/18/17- will try full liquids- nephrology checking on pt will cont to follow progress 08/20/17- GI evaluation noted- on IV atbx- distention of abd same or worse will try to give some contrast via NG and rescan pt- no IV contrast considering abd exploration- will also discuss with GI 08/19/17- Persistent distention- ? gastric, ? bowel- atypical for mechanical sbo - will have NG placed, check labs, will possibly need contrast study but will not tolerate po- ask GI to see . may come explor lap if does not resolve 08/18/17- will try full liquids- nephrology checking on pt will cont to follow progress
[2017-08-23] MEDS ORDERED: NURSING VERBAL MED ORDER ONE (06:30)
[2017-08-23] MEDS ORDERED: TPN/PPN CONSULT PHARMACY PRN ×2 (06:45→07:00)
[2017-08-23] MEDS ORDERED: CUSTOM PERIPHERAL PN 1 BAG IV SCH (07:00)
[2017-08-23] MEDS: FAMOTIDINE IV INJ 20 MG in SYRINGE 3 ML IV SCH ×2 (07:08→18:37)
[2017-08-23 07:20] VITALS: BP 133/56; PULSE 61; TEMP 36.8; O2SAT 92
--- NOTE | 2017-08-23 08:03 | DIAGNOSTIC IMAGING REPORT ---
ABDOMEN 2VIEW W/PA CHEST RTN HISTORY: 61 years-old Male sbo follow-up study in a patient with small bowel obstruction COMPARISON: CT 08/20/2017, abdominal radiographs 08/19/2017 TECHNIQUE: AP view of the chest with left lateral decubitus and supine views of the abdomen FINDINGS: Cardiac silhouette is again mildly enlarged. Left pectoral pacer is noted with leads unchanged. No pneumothorax. Persistent patchy bibasilar opacities are noted, left greater than right. Dilated loops of small bowel are again seen throughout the abdomen measuring up to 4.1 cm transversely which has not significantly changed from comparison. No pneumoperitoneum on the decubitus film. Skin bryson overlie the midline lower abdomen. No abnormal calcifications. Drainage catheter overlies the pelvis. IMPRESSION: 1. Persistent dilated loops of small bowel throughout the abdomen. 2. Patchy bibasilar opacities again noted suggesting atelectasis or pneumonia. The above report was generated using voice recognition software. It may contain grammatical, syntax or spelling errors. Electronically signed by: Dickson Tate M.D. 08/23/2017 8:01 AM Dictated Date/Time: 08/23/2017 7:58 AM
--- NOTE | 2017-08-23 08:11 | Anesthesiology Progress Note ---
Anesthesia Post Op Note Date & Time Aug 23, 2017 at 08:11 Vital Signs Pain Intensity: 0.0 Vital Signs Past 12 Hours Date Time Temp Pulse Resp B/P (MAP) Pulse Ox O2 Delivery O2 Flow Rate FiO2 08/23/17 07:20 36.8 61 19 133/56 (81) 92 Room Air 08/23/17 00:15 36.8 64 16 163/76 (105) 91 Room Air 08/23/17 00:10 Room Air 08/22/17 21:19 67 16 160/75 (103) 94 Room Air Notes Mental Status: alert / awake / arousable, participated in evaluation Pt Amnestic to Procedure: Yes Nausea / Vomiting: adequately controlled Pain: adequately controlled Airway Patency, RR, SpO2: stable & adequate BP & HR: stable & adequate Hydration State: stable & adequate Anesthetic Complications: no major complications apparent
[2017-08-23 08:29] LABS: CREATININE 4.41 mg/dl (0.60-1.40); POTASSIUM 4.3 mmol/L (3.5-5.1)
[2017-08-23] MEDS: HEPARIN SOD 5000 UNIT/0.5 ML CARP SQ SCH ×2 (09:00→21:09)
[2017-08-23 09:21] VITALS: PULSE 64
--- NOTE | 2017-08-23 09:22 | Nephrology Progress Note ---
Nephrology Progress Note Date of Service Aug 23, 2017. Chief Complaint Acute on CKD Subjective Stacey was seen & examined in her hospital room this morning. She reports that she is tolerating a liquid diet and has had flatus. She has not yet had a bowel movement. Stacey currently denies fever, angina or dyspnea. She is tolerating gentle hydration. She still has a velazquez catheter in place and I&O's have been matched over the last 24 hours. Review of Systems Constitutional: No fever Cardiovascular: No chest pain Respiratory: No dyspnea at rest Abdomen: No vomiting, No diarrhea Extremities: No leg edema A complete review of systems was performed. Pertinent positives are noted above. All other systems are negative. Vital Signs Last 8 Hrs Date Time Temp Pulse Resp B/P (MAP) Pulse Ox O2 Delivery O2 Flow Rate FiO2 08/23/17 07:20 36.8 61 19 133/56 (81) 92 Room Air Last Recorded Weight Weight (Kilograms): 63.600 Physical Exam General Appearance: no apparent distress Head: normocephalic, atraumatic Eyes: PERRL, EOMI Neck: no adenopathy Respiratory/Chest: lungs clear, no respiratory distress Cardiovascular: regular rate, rhythm, no murmur Abdomen/GI: soft (hypoactive bowel sounds) Genitourinary - Male: + pertinent finding (velazquez catheter in place draining clear yellow urine.) Extremities/Musculoskelatal: no calf tenderness, no pedal edema Neurologic/Psych: alert Family History Diabetes mellitus Hypertension Social History Smokeless Tobacco Use: No Alcohol Use: none Drug Use: none Marital Status: single Housing Status: other ([facility]) Occupation: unemployed Laboratory Results Past 24 Hours 08/23/17 07:35 Test 08/22/17 11:37 08/22/17 17:12 08/22/17 20:40 08/23/17 07:35 Bedside Glucose 178 mg/dl (70-99) 196 mg/dl (70-99) 181 mg/dl (70-99) Anion Gap 14.0 mmol/L (3-11) Est Creatinine Clear Calc Drug Dose 14.4 ml/min Estimated GFR () 15.4 Estimated GFR (Non- 13.3 BUN/Creatinine Ratio 19.3 (10-20) Calcium Level 8.0 mg/dl (8.5-10.1) Phosphorus Level 4.0 mg/dl (2.5-4.9) Magnesium Level 2.8 mg/dl (1.8-2.4) Allergies Coded Allergies: Penicillins (Verified Allergy, Intermediate, UNKNOWN, 08/17/17) Medications Current Inpatient Medications Medications (Trade) Dose Ordered Sig/Carlin Route Start Time Stop Time Status Last Admin Dose Admin Acetaminophen (Tylenol Tab) 650 mg Q4H PRN PO 08/17/17 13:45 09/16/17 13:44 08/18/17 09:17 650 MG Al Hydrox/Mg Hydrox/Simethicone (Maalox Max Susp) 15 ml Q4H PRN PO 08/17/17 13:45 09/16/17 13:44 08/18/17 21:37 15 ML Magnesium Hydroxide (Milk Of Magnesia Susp) 30 ml Q6H PRN PO 08/17/17 13:45 09/16/17 13:44 Polyethylene (Miralax Powder Packet) 17 gm DAILY PRN PO 08/17/17 15:00 09/16/17 14:59 Ondansetron HCl (Zofran Inj) 4 mg Q6H PRN IV 08/17/17 13:45 09/16/17 13:44 08/23/17 05:47 4 MG Heparin Sodium (Porcine) (Heparin Sq 5000 Unit/0.5ml) 5,000 unit Q12H SQ 08/17/17 21:00 09/16/17 20:59 08/22/17 10:24 5,000 UNIT Glucose (Glucose 40% Gel) 15-30 GRAMS 15 GRAMS... UD PRN PO 08/17/17 13:45 09/16/17 13:44 Glucose (Glucose Chew Tab) 4-8 Tablets 4 Tabl... UD PRN PO 08/17/17 13:45 09/16/17 13:44 Dextrose (Dextrose 50% 50ML Syringe) 25-50ML OF 50% DW IV FOR... UD PRN IV 08/17/17 13:45 09/16/17 13:44 Glucagon (Glucagon Inj) 1 mg UD PRN SQ 08/17/17 13:45 09/16/17 13:44 Latanoprost (Xalatan Oph Soln) 1 drops HS OPB 08/17/17 21:00 09/16/17 20:59 08/22/17 21:21 1 DROPS Sodium Chloride 1,000 ml @ 100 mls/hr Q10H IV 08/17/17 15:30 09/16/17 15:29 08/23/17 01:59 100 MLS/HR Atorvastatin Calcium (Lipitor Tab) 40 mg QAM PO 08/18/17 09:00 09/17/17 08:59 Future Hold 08/18/17 09:03 40 MG Carvedilol (Coreg Tab) 18.75 mg BID PO 08/17/17 21:00 09/16/17 20:59 08/22/17 21:21 18.75 MG Finasteride (Proscar Tab) 5 mg DAILY PO 08/18/17 09:00 09/17/17 08:59 Future Hold 08/18/17 09:03 5 MG Non-Formulary Medication (Darunavir Ethanolate (Prezista)) 800 mg HS PO 08/17/17 21:00 09/16/17 20:59 UNV Elvitegravir/ Cobicis/Emtricit/ Tenof (Genvoya [phone] Mg) 1 tab DAILY PO 08/18/17 09:00 09/17/17 08:59 Future Hold 08/18/17 09:17 1 TAB Morphine Sulfate (MoRPHine SULFATE INJ) 4 mg Q4H PRN IV 08/17/17 14:15 08/31/17 14:14 08/18/17 21:41 4 MG Famotidine 20 mg/ Syringe 5 ml @ 2.5 mls/min Q12H IV 08/18/17 19:00 09/17/17 18:59 08/23/17 07:08 2.5 MLS/MIN Zolpidem Tartrate (Ambien Tab) 5 mg HS PRN PO 08/18/17 22:00 09/17/17 21:59 Future Hold 08/18/17 23:16 5 MG Hydralazine HCl (HydrALAZINE INJ) 10 mg Q6H PRN IV. 08/19/17 10:30 09/18/17 10:29 08/22/17 04:13 10 MG Ciprofloxacin/ Dextrose 400 mg/ Prmx 200 ml @ 100 mls/hr Q24H IV 08/19/17 16:00 08/29/17 15:59 08/22/17 15:33 100 MLS/HR Metronidazole 500 mg/Prmx 100 ml @ 100 mls/hr Q8H IV 08/19/17 14:30 08/29/17 14:29 08/23/17 05:47 100 MLS/HR Ciprofloxacin (Consult) 1 ea UD PRN N/A 08/19/17 14:15 09/18/17 14:14 Menthol (Nice Nory) 1 nory Q1H PRN PO 08/19/17 18:45 09/18/17 18:44 08/19/17 18:53 1 NORY Albuterol/ Ipratropium (Duoneb) 3 ml Q6H PRN INH 08/20/17 12:00 09/18/17 11:59 08/20/17 19:58 3 ML Hydromorphone HCl (Dilaudid Inj) 0.5 mg Q3H PRN IV 08/20/17 13:30 09/03/17 13:29 08/21/17 08:16 0.5 MG Hydromorphone HCl (Dilaudid Inj) 1 mg Q3H PRN IV 08/20/17 13:30 09/03/17 13:29 08/22/17 19:47 1 MG Amlodipine Besylate (Norvasc Tab) 10 mg QAM PO 08/23/17 09:00 09/22/17 08:59 Insulin Aspart (novoLOG ASPART) SLIDING SCALE If C... ACHS SC 08/22/17 17:15 09/18/17 11:59 08/22/17 18:29 1 UNITS Dextrose 1,000 ml @ 0 mls/hr Q0M PRN IV 08/23/17 16:00 09/22/17 15:59 Miscellaneous Information (Pharmacy Tpn/ Ppn Consult Active) 1 UD PRN N/A 08/23/17 07:00 09/22/17 06:59 Impression (1) Acute kidney injury (2) CKD (chronic kidney disease), stage III (3) SBO (small bowel obstruction) (4) Proteinuria (5) Anemia (6) HTN (hypertension) (7) HIV (human immunodeficiency virus infection) Stacey has a past medical history significant for HTN, CKD and HIV. She was admitted to the hospital with SBO. She has stage III CKD w/ baseline creatinine 2.0 - 2.5. LEEROY was most likely ATN related to dehydration and small- bowel obstruction. CT abdomen & pelvis was negative for hydronephrosis. CKD is likely related to hypertensive/diabetic nephropathy but possibility for intrinsic glomerular disease such as FSGS with HIV or nephropathy from anti- retroviral medication remains. Patient is s/p exploratory laparotomy 08/20/2017: abdominal abscesses from ruptured appendix. Recommendations ACUTE KIDNEY INJURY: -- Creatinine peaked at 5.3. Patient is now within the recovery phase of ATN. She remains nonoliguric -- Continue to monitor PRP. No acute indication for HD at this time CHRONIC KIDNEY DISEASE: -- Baseline creatinine has been 2.0 - 2.5 METABOLIC ACIDOSIS: -- High anion gap acidosis due to LEEROY -- Will change IVF to 0.25 NS w/ 1 amp NaHCO3 at 100 cc/min
[2017-08-23] MEDS: INSULIN ASPART 100 UNITS/ML 3 ML PEN SC SCH ×4 (09:23→23:20)
[2017-08-23] MEDS: AMLODIPINE BESYLATE 5 MG TAB PO SCH (09:25)
[2017-08-23] MEDS: CARVEDILOL 12.5 MG TAB PO SCH ×2 (09:26→21:06)
--- NOTE | 2017-08-23 10:35 | Hospitalist Progress Note ---
Hospitalist Progress Note Date of Service Aug 23, 2017. (Madelyn Buckley ., PA-C) Subjective Pt evaluation today including: conversation w/ patient, physical exam, lab review, review of studies, review of inpatient medication list Voiding: velazquez catheter in place Patient resting in bed. 1 episode of emesis. Continue clears for now as per surgery. If continued emesis , will need NG tube again. +flatus, no BM. No pain. Discussed importance of incentive spirometer, ambulation, OOB in chair. Discussed w/ RN as well. +weakness. Still w/ good UO. 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 No need for HD as of now. Patient denies any fever, chills, sweats, lightheadedness, dizziness, vision changes, CP, palpitations, edema, SOB, wheezing, cough, abdominal pain, nausea, diarrhea, urinary symptoms, melena, numbness/tingling, muscle/joint pain, anxiety/depression, active bleeding, or new skin discoloration/changes. (Madelyn Buckley ., PA-C) Medications Current Inpatient Medications Medications (Trade) Dose Ordered Sig/Carlin Route Start Time Stop Time Status Last Admin Dose Admin Acetaminophen (Tylenol Tab) 650 mg Q4H PRN PO 08/17/17 13:45 09/16/17 13:44 08/18/17 09:17 650 MG Al Hydrox/Mg Hydrox/Simethicone (Maalox Max Susp) 15 ml Q4H PRN PO 08/17/17 13:45 09/16/17 13:44 08/18/17 21:37 15 ML Magnesium Hydroxide (Milk Of Magnesia Susp) 30 ml Q6H PRN PO 08/17/17 13:45 09/16/17 13:44 Polyethylene (Miralax Powder Packet) 17 gm DAILY PRN PO 08/17/17 15:00 09/16/17 14:59 Ondansetron HCl (Zofran Inj) 4 mg Q6H PRN IV 08/17/17 13:45 09/16/17 13:44 08/23/17 05:47 4 MG Heparin Sodium (Porcine) (Heparin Sq 5000 Unit/0.5ml) 5,000 unit Q12H SQ 08/17/17 21:00 09/16/17 20:59 08/22/17 10:24 5,000 UNIT Glucose (Glucose 40% Gel) 15-30 GRAMS 15 GRAMS... UD PRN PO 08/17/17 13:45 09/16/17 13:44 Glucose (Glucose Chew Tab) 4-8 Tablets 4 Tabl... UD PRN PO 08/17/17 13:45 09/16/17 13:44 Dextrose (Dextrose 50% 50ML Syringe) 25-50ML OF 50% DW IV FOR... UD PRN IV 08/17/17 13:45 09/16/17 13:44 Glucagon (Glucagon Inj) 1 mg UD PRN SQ 08/17/17 13:45 09/16/17 13:44 Latanoprost (Xalatan Oph Soln) 1 drops HS OPB 08/17/17 21:00 09/16/17 20:59 08/22/17 21:21 1 DROPS Atorvastatin Calcium (Lipitor Tab) 40 mg QAM PO 08/18/17 09:00 09/17/17 08:59 Future Hold 08/18/17 09:03 40 MG Carvedilol (Coreg Tab) 18.75 mg BID PO 08/17/17 21:00 09/16/17 20:59 08/23/17 09:26 18.75 MG Finasteride (Proscar Tab) 5 mg DAILY PO 08/18/17 09:00 09/17/17 08:59 Future Hold 08/18/17 09:03 5 MG Non-Formulary Medication (Darunavir Ethanolate (Prezista)) 800 mg HS PO 08/17/17 21:00 09/16/17 20:59 UNV Elvitegravir/ Cobicis/Emtricit/ Tenof (Genvoya 964-405-910-10 Mg) 1 tab DAILY PO 08/18/17 09:00 09/17/17 08:59 Future Hold 08/18/17 09:17 1 TAB Morphine Sulfate (MoRPHine SULFATE INJ) 4 mg Q4H PRN IV 08/17/17 14:15 08/31/17 14:14 08/18/17 21:41 4 MG Famotidine 20 mg/ Syringe 5 ml @ 2.5 mls/min Q12H IV 08/18/17 19:00 09/17/17 18:59 08/23/17 07:08 2.5 MLS/MIN Zolpidem Tartrate (Ambien Tab) 5 mg HS PRN PO 08/18/17 22:00 09/17/17 21:59 Future Hold 08/18/17 23:16 5 MG Hydralazine HCl (HydrALAZINE INJ) 10 mg Q6H PRN IV. 08/19/17 10:30 09/18/17 10:29 08/22/17 04:13 10 MG Ciprofloxacin/ Dextrose 400 mg/ Prmx 200 ml @ 100 mls/hr Q24H IV 08/19/17 16:00 08/29/17 15:59 08/22/17 15:33 100 MLS/HR Metronidazole 500 mg/Prmx 100 ml @ 100 mls/hr Q8H IV 08/19/17 14:30 08/29/17 14:29 08/23/17 05:47 100 MLS/HR Ciprofloxacin (Consult) 1 ea UD PRN N/A 08/19/17 14:15 09/18/17 14:14 Menthol (Nice Nory) 1 nory Q1H PRN PO 08/19/17 18:45 09/18/17 18:44 08/19/17 18:53 1 NORY Albuterol/ Ipratropium (Duoneb) 3 ml Q6H PRN INH 08/20/17 12:00 09/18/17 11:59 08/20/17 19:58 3 ML Hydromorphone HCl (Dilaudid Inj) 0.5 mg Q3H PRN IV 08/20/17 13:30 09/03/17 13:29 08/21/17 08:16 0.5 MG Hydromorphone HCl (Dilaudid Inj) 1 mg Q3H PRN IV 08/20/17 13:30 09/03/17 13:29 08/22/17 19:47 1 MG Amlodipine Besylate (Norvasc Tab) 10 mg QAM PO 08/23/17 09:00 09/22/17 08:59 08/23/17 09:25 10 MG Insulin Aspart (novoLOG ASPART) SLIDING SCALE If C... ACHS SC 08/22/17 17:15 09/18/17 11:59 08/22/17 18:29 1 UNITS Dextrose 1,000 ml @ 0 mls/hr Q0M PRN IV 08/23/17 16:00 09/22/17 15:59 Miscellaneous Information (Pharmacy Tpn/ Ppn Consult Active) 1 ea UD PRN N/A 08/23/17 07:00 09/22/17 06:59 Sodium Bicarbonate 50 meq/Sodium Chloride 1,050 ml @ 100 mls/hr [id number] IV 08/23/17 10:30 09/22/17 10:29 (Madelyn Buckley PA-C) Objective Vital Signs Date Time Temp Pulse Resp B/P (MAP) Pulse Ox O2 Delivery O2 Flow Rate FiO2 08/23/17 09:21 64 08/23/17 07:20 36.8 61 19 133/56 (81) 92 Room Air 08/23/17 00:15 36.8 64 16 163/76 (105) 91 Room Air 08/23/17 00:10 Room Air 08/22/17 21:19 67 16 160/75 (103) 94 Room Air 08/22/17 15:31 36.5 67 17 171/73 (105) 94 Room Air 08/22/17 15:30 Room Air 08/22/17 14:30 37.0 59 16 91 2.0 08/22/17 14:30 37.0 59 16 166/77 (106) 91 Room Air 08/22/17 11:15 36.7 64 18 160/78 (105) 93 Room Air (Madelyn Buckley, DAO-C) Physical Exam General Appearance: no apparent distress Eyes: normal inspection, PERRL ENT: hearing grossly normal Neck: supple Respiratory/Chest: no respiratory distress, no accessory muscle use, + decreased breath sounds Cardiovascular: regular rate, rhythm Abdomen: normal bowel sounds, + tenderness (appropriately tender around incision site ), + pertinent finding (incision site dressing C/D/I) Extremities: no pedal edema, no calf tenderness Neurologic/Psychiatric: alert, normal mood/affect, oriented x 3 Skin: normal color, warm/dry, no rash (Madelyn Buckley, DAO-C) Laboratory Results Last 24 Hours Test 08/22/17 11:37 08/22/17 17:12 08/22/17 20:40 08/23/17 07:35 Bedside Glucose 178 mg/dl 196 mg/dl 181 mg/dl Sodium Level 146 mmol/L Potassium Level 4.3 mmol/L Chloride Level 118 mmol/L Carbon Dioxide Level 14 mmol/L Anion Gap 14.0 mmol/L Blood Urea Nitrogen 85 mg/dl Creatinine 4.41 mg/dl Est Creatinine Clear Calc Drug Dose 14.4 ml/min Estimated GFR () 15.4 Estimated GFR (Non- 13.3 BUN/Creatinine Ratio 19.3 Random Glucose 187 mg/dl Calcium Level 8.0 mg/dl Phosphorus Level 4.0 mg/dl Magnesium Level 2.8 mg/dl (Madelyn Buckley, PAMandy) Assessment and Plan 61 y/o transgender female with a history of HTN, HLD, sick sinus syndrome s/p pacemaker 04/26/17, DM II, CKD stage III, anemia of chronic disease, and HIV who presented to the ED on 08/16 from [facility] with abdominal pain, nausea and vomiting. Pt afebrile, VSS on arrival. O2 sat did drop to 85%, placed on 2L NC. CXR with possible left base consolidation vs atelectasis. CT abdomen/ pelvis with distal small bowel obstructive change and inflammatory change of the appendix with associated appendicolith. Creatinine 2.50, elevated above baseline. POC lactic acid 2.15. LFTs elevated. s/p ex-lap on 08/[address] Elizabeth for SBO, finding ruptured appendicitis with abscess formation: - NPO- NG tube placed on 08/19- removed on 08/22 and diet advanced to clears- starting TPN on 08/23 - IV NSS @ 100 ml/hr, changed as below as per nephrology- ECHO from 04/2017 w/ preserved EF - Morphine 4 mg IV q4h, IV Dilaudid PRN for pain management - Abdominal cultures growing gram negative bacilli - IV Cipro + Flagyl- started on 08/19 - Abdominal x-ray on 08/23- persistent small bowel dilation - General surgery consulted, appreciate recommendations- surgical management as per surgery - GI consulted, appreciate recommendations Acute respiratory and metabolic acidosis secondary to LEEROY- STABLE: - ICU due to postop anesthesia complications/renal failure- STABLE- transferred to tele on 08/21 and med/surg on 08/22 - DuoNebs QID and PRN - CXR on 08/23- PNA vs atelectasis -- Likely atelectasis due to no cough/sputum production, fever/chills, or WBC - however, IV Cipro for coverage as above -- Encourage incentive spirometer, ambulation, OOB in chair QS - Nephrology following- started IVF to 0.25 NS w/ 1 amp NaHCO3 at 100 cc/min today LEEROY on CKD stage II, likely secondary to ATN- baseline toll operator 2.0-2.5- toll operator 4.4 today, anemia of chronic disease- baseline hgb 10: - IVF as above - Avoid nephrotoxic agents and renally dose medications as appropriate - Follow PRP and UO - Nephrology consulted, appreciate recommendations- no need for acute HD at this time HTN, HLD, sick sinus syndrome s/p pacemaker 04/26/17: - Lipitor 40 mg PO qd held until tolerating full PO intake - Continue Coreg 18.75 mg PO BID and Norvasc 10 mg daily - IV Hydralazine PRN T2DM- last HgbA1c 5.0%: - Hold Glipizide while inpatient - BSG ACHS and ISS HIV: Continue Genvoya 1 tab PO qd and Prezista 800 mg PO HS once tolerating full PO intake BPH: Hold Proscar 5 mg PO qd until tolerating full PO intake Glaucoma: Continue Latanoprost drops GI prophylaxis: IV Pepcid DVT prophylaxis: Heparin SQ BID Code Status: LEVEL I, FULL Dispo: From [facility] (Madelyn Buckley, RUDDYC) Supervising Note Dr. Benito I performed a history and physical examination on the patient. I reviewed above note and agree with it. I discussed plan with APC and patient. During my face to face encounter with the patient, I answered all of the patient's questions. (Derek Benito M.D.)
[2017-08-23] MEDS: SODIUM BICARBONATE 8.4% INJ 50 MEQ in SODIUM CHLORIDE 0.45% 1000ML 1,000 ML IV SCH ×2 (11:11→22:07)
[2017-08-23 15:55] VITALS: BP 167/75; PULSE 60; TEMP 36.3; O2SAT 94
[2017-08-23] MEDS ORDERED: DEXTROSE 10% 1,000 ML IV PRN (16:00)
[2017-08-23] MEDS: CIPROFLOXACIN / D5W 400 MG in PREMIXED IN D5W 200 ML IV SCH (16:39)
[2017-08-23] MEDS: HYDROmorphone INJ 0.5 MG/0.5 ML SYR IV PRN ×2 (16:40→17:18)
[2017-08-23] MEDS ORDERED: NURSING DECISION MEDICATION ORDER SCH (19:30)
[2017-08-23 21:00] VITALS: BP 165/78; PULSE 64
[2017-08-23] MEDS: LATANOPROST 0.005% OP SOLN 2.5 ML BTL OPB SCH (21:07)
[2017-08-23 23:05] VITALS: BP 167/75; PULSE 60; TEMP 36.7; O2SAT 95
[2017-08-24] MEDS: METRONIDAZOLE / NSS 500 MG in PREMIXED NSS 100 ML IV SCH ×3 (05:35→21:58)
[2017-08-24] MEDS: INSULIN ASPART 100 UNITS/ML 3 ML PEN SC SCH ×3 (05:51→17:30)
[2017-08-24] MEDS ORDERED: MINERAL OIL 30 ML UDC PO ONE (06:15)
--- NOTE | 2017-08-24 06:16 | Surgery Progress Note ---
Surgery Progress Note Date of Service Aug 24, 2017. Subjective more alert this am- very good urine output bilious NG output Objective Vital Signs: Date Time Temp Pulse Resp B/P (MAP) Pulse Ox O2 Delivery O2 Flow Rate FiO2 08/23/17 23:05 36.7 60 18 167/75 (105) 95 Room Air 08/23/17 21:00 64 165/78 (107) 08/23/17 19:35 Room Air 08/23/17 15:55 36.3 60 18 167/75 (105) 94 Room Air 08/23/17 09:21 64 08/23/17 07:55 Room Air 08/23/17 07:20 36.8 61 19 133/56 (81) 92 Room Air General Appearance: no apparent distress Respiratory/Chest: no respiratory distress Abdomen: + distended, + pertinent finding (decreased bowel sounds) Incision(s): no erythema, drainage (serous) Laboratory Results: Results Past 24 Hours Test 08/23/17 07:35 08/23/17 08:18 08/23/17 12:42 08/23/17 18:32 Range/Units Sodium Level 146 136-145 mmol/L Potassium Level 4.3 3.5-5.1 mmol/L Chloride Level 118 98-107 mmol/L Carbon Dioxide Level 14 21-32 mmol/L Anion Gap 14.0 3-11 mmol/L Blood Urea Nitrogen 85 7-18 mg/dl Creatinine 4.41 0.60-1.40 mg/dl Est Creatinine Clear Calc Drug Dose 14.4 ml/min Estimated GFR () 15.4 Estimated GFR (Non- 13.3 BUN/Creatinine Ratio 19.3 10-20 Random Glucose 187 70-99 mg/dl Calcium Level 8.0 8.5-10.1 mg/dl Phosphorus Level 4.0 2.5-4.9 mg/dl Magnesium Level 2.8 1.8-2.4 mg/dl Bedside Glucose 179 176 153 70-99 mg/dl Test 08/23/17 23:16 08/24/17 04:44 08/24/17 05:43 Range/Units Bedside Glucose 152 138 70-99 mg/dl Assessment & Plan 08/24/17- ileus not unexpected- ppn ordered- not started- pharmacy notified. Will probably benefit from picc line for addnl calories cont NG, try some Reglan. cont wound care, IV atbx 08/23/17- pt s/p laparotomy , lysis of adhesions, drainage abd abscess appendectomy- at risk for ileus- vomited- check film, clears only if vomits again will need NG- order periph tpn- may need Picc line ambulate 08/20/17- GI evaluation noted- on IV atbx- distention of abd same or worse will try to give some contrast via NG and rescan pt- no IV contrast considering abd exploration- will also discuss with GI 08/19/17- Persistent distention- ? gastric, ? bowel- atypical for mechanical sbo - will have NG placed, check labs, will possibly need contrast study but will not tolerate po- ask GI to see . may come explor lap if does not resolve 08/18/17- will try full liquids- nephrology checking on pt will cont to follow progress 08/23/17- pt s/p laparotomy , lysis of adhesions, drainage abd abscess appendectomy- at risk for ileus- vomited- check film, clears only if vomits again will need NG- order periph tpn- may need Picc line ambulate 08/20/17- GI evaluation noted- on IV atbx- distention of abd same or worse will try to give some contrast via NG and rescan pt- no IV contrast considering abd exploration- will also discuss with GI 08/19/17- Persistent distention- ? gastric, ? bowel- atypical for mechanical sbo - will have NG placed, check labs, will possibly need contrast study but will not tolerate po- ask GI to see . may come explor lap if does not resolve 08/18/17- will try full liquids- nephrology checking on pt will cont to follow progress
[2017-08-24] MEDS: FAMOTIDINE IV INJ 20 MG in SYRINGE 3 ML IV SCH ×2 (06:37→18:38)
[2017-08-24] MEDS: METOCLOPRAMIDE HCL INJ 5 MG/ML 2 ML VIAL IV. SCH ×4 (06:44→18:38)
[2017-08-24 06:55] VITALS: BP 178/83; PULSE 60; TEMP 36.7; O2SAT 95
[2017-08-24] MEDS ORDERED: SODIUM BICARBONATE 8.4% INJ 50 MEQ in D5W AND 1/2NSS 1,000 ML IV SCH (07:30)
[2017-08-24 08:12] LABS: CALCIUM 7.9 mg/dl (8.5-10.1); CREATININE 3.9 mg/dl (0.60-1.40); POTASSIUM 4.1 mmol/L (3.5-5.1)
[2017-08-24] MEDS: HEPARIN SOD 5000 UNIT/0.5 ML CARP SQ SCH ×2 (08:34→21:18)
[2017-08-24] MEDS: CARVEDILOL 12.5 MG TAB PO SCH ×2 (08:43→21:18)
[2017-08-24] MEDS: SENNA 8.8 MG/5 ML UDP PO SCH ×2 (08:43→21:19)
[2017-08-24] MEDS: AMLODIPINE BESYLATE 5 MG TAB PO SCH (08:44)
--- NOTE | 2017-08-24 09:13 | Nephrology Progress Note ---
Nephrology Progress Note Date of Service Aug 24, 2017. Chief Complaint Acute on CKD Princess Ibarra was seen & examined in her hospital room this morning. She was preparing to walk in the hallway. She complains of mild incisional discomfort but otherwise voices no medical concerns. Review of Systems Constitutional: No fever Cardiovascular: No chest pain Respiratory: No dyspnea at rest Abdomen: No nausea, No vomiting, No diarrhea Extremities: No leg edema A complete review of systems was performed. Pertinent positives are noted above. All other systems are negative. Vital Signs Last 8 Hrs Date Time Temp Pulse Resp B/P (MAP) Pulse Ox O2 Delivery O2 Flow Rate FiO2 08/24/17 06:55 36.7 60 19 178/83 (114) 95 Room Air Last Recorded Weight Weight (Kilograms): 63.600 Physical Exam General Appearance: no apparent distress Head: normocephalic, atraumatic Eyes: PERRL, EOMI ENT: pharynx normal Neck: no adenopathy, no JVD Respiratory/Chest: lungs clear, no respiratory distress Cardiovascular: regular rate, rhythm Abdomen/GI: normal bowel sounds, non tender, soft Genitourinary - Male: + pertinent finding (velazquez catheter draining clear yellow urine) Extremities/Musculoskelatal: no calf tenderness, no pedal edema Neurologic/Psych: alert, oriented x 3 Family History Diabetes mellitus Hypertension Social History Smokeless Tobacco Use: No Alcohol Use: none Drug Use: none Marital Status: single Housing Status: other ([facility]) Occupation: unemployed Laboratory Results Past 24 Hours 08/24/17 06:57 Test 08/23/17 12:42 08/23/17 18:32 08/23/17 23:16 08/24/17 05:43 Bedside Glucose 176 mg/dl (70-99) 153 mg/dl (70-99) 152 mg/dl (70-99) 138 mg/dl (70-99) Test 08/24/17 06:57 Anion Gap 13.0 mmol/L (3-11) Est Creatinine Clear Calc Drug Dose 16.2 ml/min Estimated GFR () 17.8 Estimated GFR (Non- 15.4 BUN/Creatinine Ratio 19.4 (10-20) Calcium Level 7.9 mg/dl (8.5-10.1) Allergies Coded Allergies: Penicillins (Verified Allergy, Intermediate, UNKNOWN, 08/17/17) Medications Current Inpatient Medications Medications (Trade) Dose Ordered Sig/Carlin Route Start Time Stop Time Status Last Admin Dose Admin Acetaminophen (Tylenol Tab) 650 mg Q4H PRN PO 08/17/17 13:45 09/16/17 13:44 08/18/17 09:17 650 MG Al Hydrox/Mg Hydrox/Simethicone (Maalox Max Susp) 15 ml Q4H PRN PO 08/17/17 13:45 09/16/17 13:44 08/18/17 21:37 15 ML Magnesium Hydroxide (Milk Of Magnesia Susp) 30 ml Q6H PRN PO 08/17/17 13:45 09/16/17 13:44 Polyethylene (Miralax Powder Packet) 17 gm DAILY PRN PO 08/17/17 15:00 09/16/17 14:59 Ondansetron HCl (Zofran Inj) 4 mg Q6H PRN IV 08/17/17 13:45 09/16/17 13:44 08/23/17 05:47 4 MG Heparin Sodium (Porcine) (Heparin Sq 5000 Unit/0.5ml) 5,000 unit Q12H SQ 08/17/17 21:00 09/16/17 20:59 08/23/17 21:09 5,000 UNIT Glucose (Glucose 40% Gel) 15-30 GRAMS 15 GRAMS... UD PRN PO 08/17/17 13:45 09/16/17 13:44 Glucose (Glucose Chew Tab) 4-8 Tablets 4 Tabl... UD PRN PO 08/17/17 13:45 09/16/17 13:44 Dextrose (Dextrose 50% 50ML Syringe) 25-50ML OF 50% DW IV FOR... UD PRN IV 08/17/17 13:45 09/16/17 13:44 Glucagon (Glucagon Inj) 1 mg UD PRN SQ 08/17/17 13:45 09/16/17 13:44 Latanoprost (Xalatan Oph Soln) 1 drops HS OPB 08/17/17 21:00 09/16/17 20:59 08/23/17 21:07 1 DROPS Atorvastatin Calcium (Lipitor Tab) 40 mg QAM PO 08/18/17 09:00 09/17/17 08:59 Future Hold 08/18/17 09:03 40 MG Carvedilol (Coreg Tab) 18.75 mg BID PO 08/17/17 21:00 09/16/17 20:59 08/24/17 08:43 18.75 MG Finasteride (Proscar Tab) 5 mg DAILY PO 08/18/17 09:00 09/17/17 08:59 Future Hold 08/18/17 09:03 5 MG Non-Formulary Medication (Darunavir Ethanolate (Prezista)) 800 mg HS PO 08/17/17 21:00 09/16/17 20:59 UNV Elvitegravir/ Cobicis/Emtricit/ Tenof (Genvoya 131-298-160-10 Mg) 1 tab DAILY PO 08/18/17 09:00 09/17/17 08:59 Future Hold 08/18/17 09:17 1 TAB Morphine Sulfate (MoRPHine SULFATE INJ) 4 mg Q4H PRN IV 08/17/17 14:15 08/31/17 14:14 08/18/17 21:41 4 MG Famotidine 20 mg/ Syringe 5 ml @ 2.5 mls/min Q12H IV 08/18/17 19:00 09/17/17 18:59 08/24/17 06:37 2.5 MLS/MIN Zolpidem Tartrate (Ambien Tab) 5 mg HS PRN PO 08/18/17 22:00 09/17/17 21:59 Future Hold 08/18/17 23:16 5 MG Hydralazine HCl (HydrALAZINE INJ) 10 mg Q6H PRN IV. 08/19/17 10:30 09/18/17 10:29 08/22/17 04:13 10 MG Ciprofloxacin/ Dextrose 400 mg/ Prmx 200 ml @ 100 mls/hr Q24H IV 08/19/17 16:00 08/29/17 15:59 08/23/17 16:39 100 MLS/HR Metronidazole 500 mg/Prmx 100 ml @ 100 mls/hr Q8H IV 08/19/17 14:30 08/29/17 14:29 08/24/17 05:35 100 MLS/HR Ciprofloxacin (Consult) 1 ea UD PRN N/A 08/19/17 14:15 09/18/17 14:14 Menthol (Nice Nory) 1 nory Q1H PRN PO 08/19/17 18:45 09/18/17 18:44 08/19/17 18:53 1 NORY Albuterol/ Ipratropium (Duoneb) 3 ml Q6H PRN INH 08/20/17 12:00 09/18/17 11:59 08/20/17 19:58 3 ML Hydromorphone HCl (Dilaudid Inj) 0.5 mg Q3H PRN IV 08/20/17 13:30 09/03/17 13:29 08/23/17 17:18 0.5 MG Hydromorphone HCl (Dilaudid Inj) 1 mg Q3H PRN IV 08/20/17 13:30 09/03/17 13:29 08/22/17 19:47 1 MG Amlodipine Besylate (Norvasc Tab) 10 mg QAM PO 08/23/17 09:00 09/22/17 08:59 08/24/17 08:44 10 MG Dextrose 1,000 ml @ 0 mls/hr Q0M PRN IV 08/23/17 16:00 09/22/17 15:59 Miscellaneous Information (Pharmacy Tpn/ Ppn Consult Active) 1 ea UD PRN N/A 08/23/17 07:00 09/22/17 06:59 Insulin Aspart (novoLOG ASPART) SLIDING SCALE If C... Q6 SC 08/24/17 00:00 09/21/17 17:14 Metoclopramide HCl (Reglan Inj) 10 mg Q6 IV. 08/24/17 06:30 09/23/17 06:29 08/24/17 06:44 10 MG Senna (Senokot Syrup) 8.8 mg BID PO 08/24/17 09:00 09/23/17 08:59 08/24/17 08:43 8.8 MG Sodium Bicarbonate 50 meq/Dextrose/ Sodium Chloride 1,050 ml @ 100 mls/hr [id number] IV 08/24/17 07:30 09/23/17 07:29 08/24/17 08:35 100 MLS/HR Impression (1) Acute kidney injury (2) CKD (chronic kidney disease), stage III (3) SBO (small bowel obstruction) (4) Proteinuria (5) Anemia (6) HTN (hypertension) (7) HIV (human immunodeficiency virus infection) Stacey has a past medical history significant for HTN, CKD and HIV. She was admitted to the hospital with SBO. She has stage III CKD w/ baseline creatinine 2.0 - 2.5. LEEROY was most likely ATN related to dehydration and small- bowel obstruction. CT abdomen & pelvis was negative for hydronephrosis. CKD is likely related to hypertensive/diabetic nephropathy but possibility for intrinsic glomerular disease such as FSGS with HIV or nephropathy from anti- retroviral medication remains. Patient is s/p exploratory laparotomy 08/20/2017: abdominal abscesses from ruptured appendix. Recommendations ACUTE KIDNEY INJURY: -- Creatinine peaked at 5.3. Patient is now within the recovery phase of ATN. She remains nonoliguric -- Continue to monitor PRP. No acute indication for HD at this time CHRONIC KIDNEY DISEASE: -- Baseline creatinine has been 2.0 - 2.5 METABOLIC ACIDOSIS: -- High anion gap acidosis due to LEEROY -- Patient is developing hypernatremia. Will stop NaHCO3 infusion. Kidney function is now improving. Will monitor HYPERNATREMIA: -- Likely related to poor oral free water intake related to recent surgery -- Will encourage oral hydration (patient reports that they are taking in clear liquids) -- Surgery to start PPN -- Will monitor PRP
--- NOTE | 2017-08-24 11:45 | Progress Note ---
Subjective Date of Service: Aug 24, 2017. Problem List Medical Problems: (1) Acute renal failure Status: Acute (2) Bradycardia Status: Acute (3) Cardiopulmonary arrest Status: Acute (4) GI bleed Status: Acute (5) Heart block Status: Acute (6) PNA (pneumonia) Status: Acute (7) Renal failure Status: Acute (8) SBO (small bowel obstruction) Status: Acute (9) Sepsis Status: Acute Objective Vital Signs Date Time Temp Pulse Resp B/P (MAP) Pulse Ox O2 Delivery O2 Flow Rate FiO2 08/24/17 07:45 Room Air 08/24/17 06:55 36.7 60 19 178/83 (114) 95 Room Air 08/23/17 23:05 36.7 60 18 167/75 (105) 95 Room Air 08/23/17 21:00 64 165/78 (107) 08/23/17 19:35 Room Air 08/23/17 15:55 36.3 60 18 167/75 (105) 94 Room Air Laboratory Results Last 24 Hours Test 08/23/17 12:42 08/23/17 18:32 08/23/17 23:16 08/24/17 05:43 Bedside Glucose 176 mg/dl 153 mg/dl 152 mg/dl 138 mg/dl Test 08/24/17 06:57 Sodium Level 147 mmol/L Potassium Level 4.1 mmol/L Chloride Level 119 mmol/L Carbon Dioxide Level 15 mmol/L Anion Gap 13.0 mmol/L Blood Urea Nitrogen 76 mg/dl Creatinine 3.90 mg/dl Est Creatinine Clear Calc Drug Dose 16.2 ml/min Estimated GFR () 17.8 Estimated GFR (Non- 15.4 BUN/Creatinine Ratio 19.4 Random Glucose 191 mg/dl Calcium Level 7.9 mg/dl Assessment and Plan Has not had food for past week Having PPN. Will obtain PICC line for TPN.
--- NOTE | 2017-08-24 12:50 | Pharmacy Progress Note ---
Parenteral Nutrition Consult Date of Service Aug 24, 2017. Scope Pharmacy has been consulted to manage parenteral nutrition orders and order appropriate labs. As part of the Nutrition Support Team guidelines, pharmacy will work in conjunction with dietary when determining the patients caloric needs. Subjective The patient is a 61 year old male admitted on Aug 17, 2017 at 13:58 for Abdominal Pain. Patient is to receive parenteral nutrition for SBO / post-op ileus Objective Height (Feet): 5 Height (Inches): 4.00 Weight (Kilograms): 63.600 Diet: NPO Vascular Access: peripheral only Intake & Output (Last 72 Hr): 08/23/17 08/24/17 08/25/17 07:59 07:59 07:59 Intake Total 1888 ml 2888 ml Output Total 1640 ml 4080 ml Balance 248 ml -1192 ml Laboratory Data (Last 24 Hr): Test 08/24/17 06:57 Blood Urea Nitrogen 76 mg/dl (7-18) Calcium Level 7.9 mg/dl (8.5-10.1) Carbon Dioxide Level 15 mmol/L (21-32) Chloride Level 119 mmol/L (98-107) Creatinine 3.90 mg/dl (0.60-1.40) Potassium Level 4.1 mmol/L (3.5-5.1) Random Glucose 191 mg/dl (70-99) Sodium Level 147 mmol/L (136-145) Nutrition Assessment Please refer to the Notes section of the EMR for the most recent breakfast manager note. Assessment * Significant electrolyte abnormalities in setting of acute on chronic kidney disease * Will avoid addition of Na, Cl, and Magnesium in PPN * Recent hyperphosphatemia - will also not add phos at this time * Starting with lower than goal dextrose in PPN 2nd possibility that patient will develop re-feeding syndrome. * Acknowledge that this may decrease K, Phos, Mag, but still will avoid addition in PPN as patient may easily become elevated 2nd significant renal dysfunction. If necessary, will replete outside of PPN * No more than 100 mL/hr rate per Dr. Elizabeth - volume therefore fixed at 2400 mL ( to be admin over 24 hours) Plan For day 1 of PN administration, the following will be ordered: Macronutrients Amino acids 65 grams/day Dextrose 100 grams/day Lipids 50 grams/day Micronutrients Potassium acetate 20 mEq Calcium gluconate 4.65 mEq Multivitamins 10 mL Trace Elements 1 mL Total volume 2400 mL to be infused over 24 hrs will provide 1100 kcal/day Final osmolarity 528 mOsm/L (maximum for PPN is 600 mOsm/L) Labs ordered per PN order protocol Pharmacy will follow and adjust parenteral nutrition orders on a daily basis. Thank you.
[2017-08-24 15:32] VITALS: BP 167/75; PULSE 60; TEMP 36.5; O2SAT 94
[2017-08-24] MEDS ORDERED: CUSTOM PERIPHERAL PN 1 BAG IV SCH (16:00)
--- NOTE | 2017-08-24 16:22 | DIAGNOSTIC IMAGING REPORT ---
CHEST ONE VIEW PORTABLE CLINICAL HISTORY: PICC placement +bullseye with VPS; pt has pacemaker CXR verify COMPARISON STUDY: 08/23/2017 FINDINGS: PICC catheter place in the superior vena cava. No evidence of pneumothorax. Nasogastric tube within the stomach. All remaining components of the study are similar. IMPRESSION: PICC catheter place in this. Vena cava. No evidence pneumothorax. Nasogastric tube within the stomach. The above report was generated using voice recognition software. It may contain grammatical, syntax or spelling errors. Electronically signed by: Davion Lopez M.D. 08/24/2017 4:20 PM Dictated Date/Time: 08/24/2017 4:19 PM
[2017-08-24] MEDS: CIPROFLOXACIN / D5W 400 MG in PREMIXED IN D5W 200 ML IV SCH (16:32)
[2017-08-24] MEDS: HYDROmorphone INJ 0.5 MG/0.5 ML SYR IV PRN (19:17)
[2017-08-24] MEDS: LATANOPROST 0.005% OP SOLN 2.5 ML BTL OPB SCH (21:19)
[2017-08-24 23:20] VITALS: BP 161/76; PULSE 61; TEMP 36.8; O2SAT 100
[2017-08-25] MEDS: INSULIN ASPART 100 UNITS/ML 3 ML PEN SC SCH ×4 (00:50→18:42)
[2017-08-25] MEDS: METOCLOPRAMIDE HCL INJ 5 MG/ML 2 ML VIAL IV. SCH ×3 (05:46→18:05)
[2017-08-25] MEDS: METRONIDAZOLE / NSS 500 MG in PREMIXED NSS 100 ML IV SCH ×3 (05:46→21:30)
[2017-08-25 06:10] LABS: HEMATOCRIT 29.3 % (42-52); HEMOGLOBIN 10.2 g/dL (14.0-18.0); MEAN CELL VOLUME 92.1 fL (80-100); MEAN CORPUSCULAR HEMOGLOBIN 32.1 pg (25-34); MEAN CORPUSCULAR HGB CONC 34.8 g/dl (32-36); MEAN PLATELET VOLUME 10.2 fL (7.4-10.4); PLATELET COUNT 315 K/uL (130-400); RED CELL DISTRIBUTION WIDTH CV 12.3 % (11.5-14.5); RED CELL DISTRIBUTION WIDTH SD 41.1 fL (36.4-46.3)
[2017-08-25] MEDS ORDERED: DEXTROSE 10% 1,000 ML IV PRN (06:13)
[2017-08-25] MEDS ORDERED: CUSTOM CENTRAL PN 1 BAG IV SCH ×2 (06:15→16:00)
[2017-08-25] MEDS ORDERED: TPN/PPN CONSULT PHARMACY PRN (06:15)
--- NOTE | 2017-08-25 06:33 | Surgery Progress Note ---
Surgery Progress Note Date of Service Aug 25, 2017. Subjective afeb, cough w/ loose secretions has picc line, ppn up, good uo- still has velazquez expected serous drainage, NG- 100-200/ shift Objective Vital Signs: Date Time Temp Pulse Resp B/P (MAP) Pulse Ox O2 Delivery O2 Flow Rate FiO2 08/25/17 00:50 Room Air 08/24/17 23:20 36.8 61 20 161/76 (104) 100 Room Air 08/24/17 16:30 Room Air 08/24/17 15:32 36.5 60 20 167/75 (105) 94 Room Air 08/24/17 07:45 Room Air 08/24/17 06:55 36.7 60 19 178/83 (114) 95 Room Air General Appearance: no apparent distress Respiratory/Chest: no respiratory distress, + rhonchi Abdomen: + distended Incision(s): intact, no erythema Laboratory Results: Results Past 24 Hours Test 08/24/17 06:57 08/24/17 11:55 08/24/17 17:16 08/25/17 00:02 Range/Units Sodium Level 147 136-145 mmol/L Potassium Level 4.1 3.5-5.1 mmol/L Chloride Level 119 98-107 mmol/L Carbon Dioxide Level 15 21-32 mmol/L Anion Gap 13.0 3-11 mmol/L Blood Urea Nitrogen 76 7-18 mg/dl Creatinine 3.90 0.60-1.40 mg/dl Est Creatinine Clear Calc Drug Dose 16.2 ml/min Estimated GFR () 17.8 Estimated GFR (Non- 15.4 BUN/Creatinine Ratio 19.4 10-20 Random Glucose 191 70-99 mg/dl Calcium Level 7.9 8.5-10.1 mg/dl Bedside Glucose 226 190 237 70-99 mg/dl Test 08/25/17 05:40 08/25/17 05:52 Range/Units White Blood Count 10.80 4.8-10.8 K/uL Red Blood Count 3.18 4.7-6.1 M/uL Hemoglobin 10.2 14.0-18.0 g/dL Hematocrit 29.3 42-52 % Mean Corpuscular Volume 92.1 80-100 fL Mean Corpuscular Hemoglobin 32.1 25-34 pg Mean Corpuscular Hemoglobin Concent 34.8 32-36 g/dl RDW Standard Deviation 41.1 36.4-46.3 fL RDW Coefficient of Variation 12.3 11.5-14.5 % Platelet Count 315 130-400 K/uL Mean Platelet Volume 10.2 7.4-10.4 fL Bedside Glucose 185 70-99 mg/dl Assessment & Plan 08/25/17- will order Tpn- central w/ picc line, d/c velazquez, leave drain. cont NG as he is still distended. overall some progress but expected to be slow. coughing up loose secretions- cont atbx 08/24/17- ileus not unexpected- ppn ordered- not started- pharmacy notified. Will probably benefit from picc line for addnl calories cont NG, try some Reglan. cont wound care, IV atbx 08/23/17- pt s/p laparotomy , lysis of adhesions, drainage abd abscess appendectomy- at risk for ileus- vomited- check film, clears only if vomits again will need NG- order periph tpn- may need Picc line ambulate 08/20/17- GI evaluation noted- on IV atbx- distention of abd same or worse will try to give some contrast via NG and rescan pt- no IV contrast considering abd exploration- will also discuss with GI 08/19/17- Persistent distention- ? gastric, ? bowel- atypical for mechanical sbo - will have NG placed, check labs, will possibly need contrast study but will not tolerate po- ask GI to see . may come explor lap if does not resolve 08/18/17- will try full liquids- nephrology checking on pt will cont to follow progress 08/24/17- ileus not unexpected- ppn ordered- not started- pharmacy notified. Will probably benefit from picc line for addnl calories cont NG, try some Reglan. cont wound care, IV atbx 08/23/17- pt s/p laparotomy , lysis of adhesions, drainage abd abscess appendectomy- at risk for ileus- vomited- check film, clears only if vomits again will need NG- order periph tpn- may need Picc line ambulate 08/20/17- GI evaluation noted- on IV atbx- distention of abd same or worse will try to give some contrast via NG and rescan pt- no IV contrast considering abd exploration- will also discuss with GI 08/19/17- Persistent distention- ? gastric, ? bowel- atypical for mechanical sbo - will have NG placed, check labs, will possibly need contrast study but will not tolerate po- ask GI to see . may come explor lap if does not resolve 08/18/17- will try full liquids- nephrology checking on pt will cont to follow progress
[2017-08-25 06:40] LABS: CALCIUM 7.5 mg/dl (8.5-10.1); CREATININE 3.96 mg/dl (0.60-1.40); PHOSPHORUS 3.6 mg/dl (2.5-4.9); POTASSIUM 3.9 mmol/L (3.5-5.1)
[2017-08-25] MEDS ORDERED: MINERAL OIL 30 ML UDC PO ONE (07:15)
[2017-08-25] MEDS: FAMOTIDINE IV INJ 20 MG in SYRINGE 3 ML IV SCH ×2 (07:17→18:08)
[2017-08-25 07:36] VITALS: BP 191/85; PULSE 62; TEMP 36.7; O2SAT 96
--- NOTE | 2017-08-25 07:50 | Progress Note ---
Subjective Date of Service: Aug 24, 2017. Subjective Seen at Aug 24, 2017. Patient reports no significant improvement today. Patient is still having NG tube on intermittent suction. Patient states she has been ambulating today. Patient reports passing gas. Problem List Medical Problems: (1) Acute renal failure Status: Acute (2) Bradycardia Status: Acute (3) Cardiopulmonary arrest Status: Acute (4) GI bleed Status: Acute (5) Heart block Status: Acute (6) PNA (pneumonia) Status: Acute (7) Renal failure Status: Acute (8) SBO (small bowel obstruction) Status: Acute (9) Sepsis Status: Acute Review of Systems Constitutional: No fever, No chills Respiratory: No cough, No sputum Abdomen: + pain, + nausea, No diarrhea, No constipation Musculoskeletal: No joint pain Neurologic: No memory loss, No paralysis Psychiatric: No depression symptoms, No anhedonism Heme: No abnormal bleeding/bruising Endo: No fatigue Skin: No rash, No itch All Other Systems: Reviewed and Negative Medications Current Inpatient Medications Medications (Trade) Dose Ordered Sig/Carlin Route Start Time Stop Time Status Last Admin Dose Admin Acetaminophen (Tylenol Tab) 650 mg Q4H PRN PO 08/17/17 13:45 09/16/17 13:44 08/18/17 09:17 650 MG Al Hydrox/Mg Hydrox/Simethicone (Maalox Max Susp) 15 ml Q4H PRN PO 08/17/17 13:45 09/16/17 13:44 08/18/17 21:37 15 ML Magnesium Hydroxide (Milk Of Magnesia Susp) 30 ml Q6H PRN PO 08/17/17 13:45 09/16/17 13:44 Polyethylene (Miralax Powder Packet) 17 gm DAILY PRN PO 08/17/17 15:00 09/16/17 14:59 Ondansetron HCl (Zofran Inj) 4 mg Q6H PRN IV 08/17/17 13:45 09/16/17 13:44 08/23/17 05:47 4 MG Glucose (Glucose 40% Gel) 15-30 GRAMS 15 GRAMS... UD PRN PO 08/17/17 13:45 09/16/17 13:44 Glucose (Glucose Chew Tab) 4-8 Tablets 4 Tabl... UD PRN PO 08/17/17 13:45 09/16/17 13:44 Dextrose (Dextrose 50% 50ML Syringe) 25-50ML OF 50% DW IV FOR... UD PRN IV 08/17/17 13:45 09/16/17 13:44 Glucagon (Glucagon Inj) 1 mg UD PRN SQ 08/17/17 13:45 09/16/17 13:44 Latanoprost (Xalatan Oph Soln) 1 drops HS OPB 08/17/17 21:00 09/16/17 20:59 08/24/17 21:19 1 DROPS Atorvastatin Calcium (Lipitor Tab) 40 mg QAM PO 08/18/17 09:00 09/17/17 08:59 Future Hold 08/18/17 09:03 40 MG Carvedilol (Coreg Tab) 18.75 mg BID PO 08/17/17 21:00 09/16/17 20:59 08/24/17 21:18 18.75 MG Finasteride (Proscar Tab) 5 mg DAILY PO 08/18/17 09:00 09/17/17 08:59 Future Hold 08/18/17 09:03 5 MG Non-Formulary Medication (Darunavir Ethanolate (Prezista)) 800 mg HS PO 08/17/17 21:00 09/16/17 20:59 UNV Elvitegravir/ Cobicis/Emtricit/ Tenof (Genvoya 024-939-468-10 Mg) 1 tab DAILY PO 08/18/17 09:00 09/17/17 08:59 Future Hold 08/18/17 09:17 1 TAB Morphine Sulfate (MoRPHine SULFATE INJ) 4 mg Q4H PRN IV 08/17/17 14:15 08/31/17 14:14 08/18/17 21:41 4 MG Famotidine 20 mg/ Syringe 5 ml @ 2.5 mls/min Q12H IV 08/18/17 19:00 09/17/17 18:59 08/25/17 07:17 2.5 MLS/MIN Zolpidem Tartrate (Ambien Tab) 5 mg HS PRN PO 08/18/17 22:00 09/17/17 21:59 Future Hold 08/18/17 23:16 5 MG Hydralazine HCl (HydrALAZINE INJ) 10 mg Q6H PRN IV. 08/19/17 10:30 09/18/17 10:29 08/22/17 04:13 10 MG Ciprofloxacin/ Dextrose 400 mg/ Prmx 200 ml @ 100 mls/hr Q24H IV 08/19/17 16:00 08/29/17 15:59 08/24/17 16:32 100 MLS/HR Metronidazole 500 mg/Prmx 100 ml @ 100 mls/hr Q8H IV 08/19/17 14:30 08/29/17 14:29 08/25/17 05:46 100 MLS/HR Ciprofloxacin (Consult) 1 ea UD PRN N/A 08/19/17 14:15 09/18/17 14:14 Menthol (Nice Nory) 1 nory Q1H PRN PO 08/19/17 18:45 09/18/17 18:44 08/19/17 18:53 1 NORY Albuterol/ Ipratropium (Duoneb) 3 ml Q6H PRN INH 08/20/17 12:00 09/18/17 11:59 08/20/17 19:58 3 ML Hydromorphone HCl (Dilaudid Inj) 0.5 mg Q3H PRN IV 08/20/17 13:30 09/03/17 13:29 08/24/17 19:17 0.5 MG Hydromorphone HCl (Dilaudid Inj) 1 mg Q3H PRN IV 08/20/17 13:30 09/03/17 13:29 08/22/17 19:47 1 MG Amlodipine Besylate (Norvasc Tab) 10 mg QAM PO 08/23/17 09:00 09/22/17 08:59 08/24/17 08:44 10 MG Dextrose 1,000 ml @ 0 mls/hr Q0M PRN IV 08/23/17 16:00 09/22/17 15:59 Miscellaneous Information (Pharmacy Tpn/ Ppn Consult Active) 1 [facility] PRN N/A 08/23/17 07:00 09/22/17 06:59 Insulin Aspart (novoLOG ASPART) SLIDING SCALE If C... Q6 SC 08/24/17 00:00 09/21/17 17:14 08/25/17 06:01 1 UNITS Metoclopramide HCl (Reglan Inj) 10 mg Q6 IV. 08/24/17 06:30 09/23/17 06:29 08/25/17 05:46 10 MG Senna (Senokot Syrup) 8.8 mg BID PO 08/24/17 09:00 09/23/17 08:59 08/24/17 21:19 8.8 MG Nutrition (Parenteral) 0 ml @ 0 mls/hr TODAY@1600 IV 08/24/17 16:00 08/25/17 15:59 08/24/17 17:37 0 MLS/HR Heparin Sodium (Porcine) (Heparin 10 Unit/ ml 5 ml Flush) 5 ml PRN PRN FLUSH 08/25/17 02:15 09/24/17 02:14 08/25/17 07:17 5 ML Nutrition (Parenteral) 0 ml @ 0 mls/hr TODAY IV 08/25/17 06:15 08/26/17 06:14 UNV Dextrose 1,000 ml @ 0 mls/hr Q0M PRN IV 08/25/17 06:13 09/24/17 06:12 UNV Miscellaneous Information (Pharmacy Tpn/ Ppn Consult Active) 1 ea UD PRN N/A 08/25/17 06:15 09/24/17 06:14 UNV Heparin Sodium (Porcine) (Heparin Sq 5000 Unit/0.5ml) 5,000 unit Q12 SC 08/25/17 09:00 09/24/17 08:59 Objective Vital Signs Date Time Temp Pulse Resp B/P (MAP) Pulse Ox O2 Delivery O2 Flow Rate FiO2 08/25/17 00:50 Room Air 08/24/17 23:20 36.8 61 20 161/76 (104) 100 Room Air 08/24/17 16:30 Room Air 08/24/17 15:32 36.5 60 20 167/75 (105) 94 Room Air 08/24/17 07:45 Room Air Physical Exam Comments: General Appearance: no apparent distress Eyes: normal inspection, PERRL ENT: hearing grossly normal Neck: supple Respiratory/Chest: no respiratory distress, no accessory muscle use, + decreased breath sounds Cardiovascular: regular rate, rhythm Abdomen: normal bowel sounds, + tenderness (appropriately tender around incision site ), + pertinent finding (incision site dressing C/D/I) Extremities: no pedal edema, no calf tenderness Neurologic/Psychiatric: alert, normal mood/affect, oriented x 3 Skin: normal color, warm/dry, no rash Laboratory Results Last 24 Hours Test 08/24/17 11:55 08/24/17 17:16 08/25/17 00:02 08/25/17 05:40 Bedside Glucose 226 mg/dl 190 mg/dl 237 mg/dl White Blood Count 10.80 K/uL Red Blood Count 3.18 M/uL Hemoglobin 10.2 g/dL Hematocrit 29.3 % Mean Corpuscular Volume 92.1 fL Mean Corpuscular Hemoglobin 32.1 pg Mean Corpuscular Hemoglobin Concent 34.8 g/dl RDW Standard Deviation 41.1 fL RDW Coefficient of Variation 12.3 % Platelet Count 315 K/uL Mean Platelet Volume 10.2 fL Sodium Level 145 mmol/L Potassium Level 3.9 mmol/L Chloride Level 118 mmol/L Carbon Dioxide Level 21 mmol/L Anion Gap 6.0 mmol/L Blood Urea Nitrogen 75 mg/dl Creatinine 3.96 mg/dl Est Creatinine Clear Calc Drug Dose 16.0 ml/min Estimated GFR () 17.5 Estimated GFR (Non- 15.1 BUN/Creatinine Ratio 19.0 Random Glucose 257 mg/dl Calcium Level 7.5 mg/dl Phosphorus Level 3.6 mg/dl Magnesium Level 2.5 mg/dl Test 08/25/17 05:52 Bedside Glucose 185 mg/dl Assessment and Plan 61 y/o transgender female with a history of HTN, HLD, sick sinus syndrome s/p pacemaker 04/26/17, DM II, CKD stage III, anemia of chronic disease, and HIV who presented to the ED on 08/16 from [facility] with abdominal pain, nausea and vomiting. Pt afebrile, VSS on arrival. O2 sat did drop to 85%, placed on 2L NC. CXR with possible left base consolidation vs atelectasis. CT abdomen/ pelvis with distal small bowel obstructive change and inflammatory change of the appendix with associated appendicolith. Creatinine 2.50, elevated above baseline. POC lactic acid 2.15. LFTs elevated. s/p ex-lap on 08/[address] Elizabeth for SBO, finding ruptured appendicitis with abscess formation: - NPO- NG tube placed on 08/19- removed on 08/22 and diet advanced to clears- starting TPN on 08/24 -TPN was delayed by a day. -PICC line was obtained once patient gave consent and Nephro gave the OK. -D/W surgery, patient will likely have a delayed recovery, which is why patient needs TPN. - IV NSS @ 100 ml/hr, changed as below as per nephrology- ECHO from 04/2017 w/ preserved EF - Morphine 4 mg IV q4h, IV Dilaudid PRN for pain management - Abdominal cultures growing gram negative bacilli - IV Cipro + Flagyl- started on 08/19 - Abdominal x-ray on 08/23- persistent small bowel dilation - General surgery consulted, appreciate recommendations- surgical management as per surgery - GI consulted, appreciate recommendations Acute respiratory and metabolic acidosis secondary to LEEROY- STABLE: - ICU due to postop anesthesia complications/renal failure- STABLE- transferred to tele on 08/21 and med/surg on 08/22 - DuoNebs QID and PRN - CXR on 08/23- PNA vs atelectasis -- Likely atelectasis due to no cough/sputum production, fever/chills, or WBC - however, IV Cipro for coverage as above -- Encourage incentive spirometer, ambulation, OOB in chair QS - Nephrology following- started IVF to 0.25 NS w/ 1 amp NaHCO3 at 100 cc/min today LEEROY on CKD stage II, likely secondary to ATN- baseline social insurance analyst 2.0-2.5- social insurance analyst 3.9 today, anemia of chronic disease- baseline hgb 10: - IVF as above -Creatinine continues to improve. - Avoid nephrotoxic agents and renally dose medications as appropriate - Follow PRP and UO - Nephrology consulted, appreciate recommendations- no need for acute HD at this time HTN, HLD, sick sinus syndrome s/p pacemaker 04/26/17: -BP continues to be elevated. Difficult to treat given patient is not able to take diuretic and cj inh. due to poor renal function - Lipitor 40 mg PO qd held until tolerating full PO intake - Continue Coreg 18.75 mg PO BID and Norvasc 10 mg daily - IV Hydralazine PRN T2DM- last HgbA1c 5.0%: - Hold Glipizide while inpatient - BSG ACHS and ISS HIV: Continue Genvoya 1 tab PO qd and Prezista 800 mg PO HS once tolerating full PO intake BPH: Hold Proscar 5 mg PO qd until tolerating full PO intake Glaucoma: Continue Latanoprost drops GI prophylaxis: IV Pepcid DVT prophylaxis: Heparin SQ BID Code Status: LEVEL I, FULL Dispo: From [facility] Continued [facility] stay due to: inadequate po fluid intake Discharge planning: uncertain
[2017-08-25] MEDS: CARVEDILOL 12.5 MG TAB PO SCH ×2 (08:04→20:31)
[2017-08-25] MEDS: AMLODIPINE BESYLATE 5 MG TAB PO SCH (08:05)
[2017-08-25] MEDS: SENNA 8.8 MG/5 ML UDP PO SCH ×2 (08:06→20:33)
[2017-08-25] MEDS: HEPARIN SOD 5000 UNIT/0.5 ML CARP SC SCH ×2 (08:10→20:35)
[2017-08-25] MEDS ORDERED: ENOXAPARIN 40 MG/0.4 ML SYR SQ SCH (09:00)
--- NOTE | 2017-08-25 09:34 | Nephrology Progress Note ---
Nephrology Progress Note Date of Service Aug 25, 2017. Chief Complaint Acute on CKD Princess Ibarra was seen & examined in her hospital room this morning. NG tube remains in place draining brown liquid. Mathis catheter was removed yesterday. Patient reports that she is voiding without difficulty. PICC line was placed in dominant R upper arm. PPN is currently infusing. Review of Systems Constitutional: No fever Cardiovascular: No chest pain Respiratory: No dyspnea at rest Abdomen: + nausea Extremities: No leg edema A complete review of systems was performed. Pertinent positives are noted above. All other systems are negative. Vital Signs Last 8 Hrs Date Time Temp Pulse Resp B/P (MAP) Pulse Ox O2 Delivery O2 Flow Rate FiO2 08/25/17 07:36 36.7 62 18 191/85 (120) 96 Room Air Last Recorded Weight Weight (Kilograms): 63.600 Physical Exam General Appearance: no apparent distress Head: normocephalic, atraumatic Eyes: PERRL, EOMI ENT: + pertinent finding (NG tube in place draining brown liquid) Neck: no adenopathy Respiratory/Chest: lungs clear, no respiratory distress Cardiovascular: regular rate, rhythm Abdomen/GI: + distended (hypoactive bowel sounds) Extremities/Musculoskelatal: no calf tenderness, no pedal edema Neurologic/Psych: alert, oriented x 3 Family History Diabetes mellitus Hypertension Social History Smokeless Tobacco Use: No Alcohol Use: none Drug Use: none Marital Status: single Housing Status: other ([facility]) Occupation: unemployed Laboratory Results Past 24 Hours 08/25/17 05:40 08/25/17 05:40 Test 08/24/17 11:55 08/24/17 17:16 08/25/17 00:02 08/25/17 05:40 Bedside Glucose 226 mg/dl (70-99) 190 mg/dl (70-99) 237 mg/dl (70-99) Red Blood Count 3.18 M/uL (4.7-6.1) Mean Corpuscular Volume 92.1 fL (80-100) Mean Corpuscular Hemoglobin 32.1 pg (25-34) Mean Corpuscular Hemoglobin Concent 34.8 g/dl (32-36) RDW Standard Deviation 41.1 fL (36.4-46.3) RDW Coefficient of Variation 12.3 % (11.5-14.5) Mean Platelet Volume 10.2 fL (7.4-10.4) Anion Gap 6.0 mmol/L (3-11) Est Creatinine Clear Calc Drug Dose 16.0 ml/min Estimated GFR () 17.5 Estimated GFR (Non- 15.1 BUN/Creatinine Ratio 19.0 (10-20) Calcium Level 7.5 mg/dl (8.5-10.1) Phosphorus Level 3.6 mg/dl (2.5-4.9) Magnesium Level 2.5 mg/dl (1.8-2.4) Test 08/25/17 05:52 Bedside Glucose 185 mg/dl (70-99) Allergies Coded Allergies: Penicillins (Verified Allergy, Intermediate, UNKNOWN, 08/17/17) Medications Current Inpatient Medications Medications (Trade) Dose Ordered Sig/Carlin Route Start Time Stop Time Status Last Admin Dose Admin Acetaminophen (Tylenol Tab) 650 mg Q4H PRN PO 08/17/17 13:45 09/16/17 13:44 08/18/17 09:17 650 MG Al Hydrox/Mg Hydrox/Simethicone (Maalox Max Susp) 15 ml Q4H PRN PO 08/17/17 13:45 09/16/17 13:44 08/18/17 21:37 15 ML Magnesium Hydroxide (Milk Of Magnesia Susp) 30 ml Q6H PRN PO 08/17/17 13:45 09/16/17 13:44 Polyethylene (Miralax Powder Packet) 17 gm DAILY PRN PO 08/17/17 15:00 09/16/17 14:59 Ondansetron HCl (Zofran Inj) 4 mg Q6H PRN IV 08/17/17 13:45 09/16/17 13:44 08/23/17 05:47 4 MG Glucose (Glucose 40% Gel) 15-30 GRAMS 15 GRAMS... UD PRN PO 08/17/17 13:45 09/16/17 13:44 Glucose (Glucose Chew Tab) 4-8 Tablets 4 Tabl... UD PRN PO 08/17/17 13:45 09/16/17 13:44 Dextrose (Dextrose 50% 50ML Syringe) 25-50ML OF 50% DW IV FOR... UD PRN IV 08/17/17 13:45 09/16/17 13:44 Glucagon (Glucagon Inj) 1 mg UD PRN SQ 08/17/17 13:45 09/16/17 13:44 Latanoprost (Xalatan Oph Soln) 1 drops HS OPB 08/17/17 21:00 09/16/17 20:59 08/24/17 21:19 1 DROPS Atorvastatin Calcium (Lipitor Tab) 40 mg QAM PO 08/18/17 09:00 09/17/17 08:59 Future Hold 08/18/17 09:03 40 MG Carvedilol (Coreg Tab) 18.75 mg BID PO 08/17/17 21:00 09/16/17 20:59 08/25/17 08:04 18.75 MG Finasteride (Proscar Tab) 5 mg DAILY PO 08/18/17 09:00 09/17/17 08:59 Future Hold 08/18/17 09:03 5 MG Non-Formulary Medication (Darunavir Ethanolate (Prezista)) 800 mg HS PO 08/17/17 21:00 09/16/17 20:59 UNV Elvitegravir/ Cobicis/Emtricit/ Tenof (Genvoya [id number] Mg) 1 tab DAILY PO 08/18/17 09:00 09/17/17 08:59 Future Hold 08/18/17 09:17 1 TAB Morphine Sulfate (MoRPHine SULFATE INJ) 4 mg Q4H PRN IV 08/17/17 14:15 08/31/17 14:14 08/18/17 21:41 4 MG Famotidine 20 mg/ Syringe 5 ml @ 2.5 mls/min Q12H IV 08/18/17 19:00 09/17/17 18:59 08/25/17 07:17 2.5 MLS/MIN Zolpidem Tartrate (Ambien Tab) 5 mg HS PRN PO 08/18/17 22:00 09/17/17 21:59 Future Hold 08/18/17 23:16 5 MG Hydralazine HCl (HydrALAZINE INJ) 10 mg Q6H PRN IV. 08/19/17 10:30 09/18/17 10:29 08/22/17 04:13 10 MG Ciprofloxacin/ Dextrose 400 mg/ Prmx 200 ml @ 100 mls/hr Q24H IV 08/19/17 16:00 1/21/18 15:59 08/24/17 16:32 100 MLS/HR Metronidazole 500 mg/Prmx 100 ml @ 100 mls/hr Q8H IV 08/19/17 14:30 08/29/17 14:29 08/25/17 05:46 100 MLS/HR Ciprofloxacin (Consult) 1 UD PRN N/A 08/19/17 14:15 09/18/17 14:14 Menthol (Nice Nory) 1 nory Q1H PRN PO 08/19/17 18:45 09/18/17 18:44 08/19/17 18:53 1 NORY Albuterol/ Ipratropium (Duoneb) 3 ml Q6H PRN INH 08/20/17 12:00 09/18/17 11:59 08/20/17 19:58 3 ML Hydromorphone HCl (Dilaudid Inj) 0.5 mg Q3H PRN IV 08/20/17 13:30 09/03/17 13:29 08/24/17 19:17 0.5 MG Hydromorphone HCl (Dilaudid Inj) 1 mg Q3H PRN IV 08/20/17 13:30 09/03/17 13:29 08/22/17 19:47 1 MG Amlodipine Besylate (Norvasc Tab) 10 mg QAM PO 08/23/17 09:00 09/22/17 08:59 08/25/17 08:05 10 MG Dextrose 1,000 ml @ 0 mls/hr Q0M PRN IV 08/23/17 16:00 09/22/17 15:59 Miscellaneous Information (Pharmacy Tpn/ Ppn Consult Active) 1 UD PRN N/A 08/23/17 07:00 09/22/17 06:59 Insulin Aspart (novoLOG ASPART) SLIDING SCALE If C... Q6 SC 08/24/17 00:00 09/21/17 17:14 08/25/17 06:01 1 UNITS Metoclopramide HCl (Reglan Inj) 10 mg Q6 IV. 08/24/17 06:30 09/23/17 06:29 08/25/17 05:46 10 MG Senna (Senokot Syrup) 8.8 mg BID PO 08/24/17 09:00 09/23/17 08:59 08/25/17 08:06 8.8 MG Nutrition (Parenteral) 0 ml @ 0 mls/hr TODAY@1600 IV 08/24/17 16:00 08/25/17 15:59 08/24/17 17:37 0 MLS/HR Heparin Sodium (Porcine) (Heparin 10 Unit/ ml 5 ml Flush) 5 ml PRN PRN FLUSH 08/25/17 02:15 09/24/17 02:14 08/25/17 07:17 5 ML Heparin Sodium (Porcine) (Heparin Sq 5000 Unit/0.5ml) 5,000 unit Q12 SC 08/25/17 09:00 09/24/17 08:59 08/25/17 08:10 5,000 UNIT Impression (1) Acute kidney injury (2) CKD (chronic kidney disease), stage III (3) SBO (small bowel obstruction) (4) Proteinuria (5) Anemia (6) HTN (hypertension) (7) HIV (human immunodeficiency virus infection) Stacey has a past medical history significant for HTN, CKD and HIV. She was admitted to the hospital with SBO. She has stage III CKD w/ baseline creatinine 2.0 - 2.5. LEEROY was most likely ATN related to dehydration and small- bowel obstruction. CT abdomen & pelvis was negative for hydronephrosis. CKD is likely related to hypertensive/diabetic nephropathy but possibility for intrinsic glomerular disease such as FSGS with HIV or nephropathy from anti- retroviral medication remains. Patient is s/p exploratory laparotomy 08/20/2017: abdominal abscesses from ruptured appendix. Recommendations ACUTE KIDNEY INJURY: -- Creatinine peaked at 5.3. Patient remains within the recovery phase of ATN. -- Mathis catheter removed yesterday. Will monitor UO -- Patient has been started on PPN. Will monitor PRP. No acute indication for HD at this time CHRONIC KIDNEY DISEASE: -- Baseline creatinine has been 2.0 - 2.5 METABOLIC ACIDOSIS: -- High anion gap acidosis and hypernatremia have resolved. Will monitor
--- NOTE | 2017-08-25 10:18 | Hospitalist Progress Note ---
Hospitalist Progress Note Date of Service Aug 25, 2017. (Madelyn Buckley ., RUDDYC) Subjective Pt evaluation today including: conversation w/ patient, physical exam, lab review, review of inpatient medication list Voiding: no voiding problems Patient sitting up in bed. Ambulating around the halls. NG tube in place- NPO. Continue PPN- PICC placed on 08/24. No pain. Continues to pass flatus, no BM. Patient denies any fever, chills, sweats, lightheadedness, dizziness, vision changes, CP, palpitations, edema, SOB, wheezing, cough, abdominal pain, nausea, vomiting, diarrhea, urinary symptoms, melena, numbness/tingling, weakness, muscle/joint pain, anxiety/depression, active bleeding, or new skin discoloration/changes. (Madelyn Buckley ., RUDDYC) Medications Current Inpatient Medications Medications (Trade) Dose Ordered Sig/Carlin Route Start Time Stop Time Status Last Admin Dose Admin Acetaminophen (Tylenol Tab) 650 mg Q4H PRN PO 08/17/17 13:45 09/16/17 13:44 08/18/17 09:17 650 MG Al Hydrox/Mg Hydrox/Simethicone (Maalox Max Susp) 15 ml Q4H PRN PO 08/17/17 13:45 09/16/17 13:44 08/18/17 21:37 15 ML Magnesium Hydroxide (Milk Of Magnesia Susp) 30 ml Q6H PRN PO 08/17/17 13:45 09/16/17 13:44 Polyethylene (Miralax Powder Packet) 17 gm DAILY PRN PO 08/17/17 15:00 09/16/17 14:59 Ondansetron HCl (Zofran Inj) 4 mg Q6H PRN IV 08/17/17 13:45 09/16/17 13:44 08/23/17 05:47 4 MG Glucose (Glucose 40% Gel) 15-30 GRAMS 15 GRAMS... UD PRN PO 08/17/17 13:45 09/16/17 13:44 Glucose (Glucose Chew Tab) 4-8 Tablets 4 Tabl... UD PRN PO 08/17/17 13:45 09/16/17 13:44 Dextrose (Dextrose 50% 50ML Syringe) 25-50ML OF 50% DW IV FOR... UD PRN IV 08/17/17 13:45 09/16/17 13:44 Glucagon (Glucagon Inj) 1 mg UD PRN SQ 08/17/17 13:45 09/16/17 13:44 Latanoprost (Xalatan Oph Soln) 1 drops HS OPB 08/17/17 21:00 09/16/17 20:59 08/24/17 21:19 1 DROPS Atorvastatin Calcium (Lipitor Tab) 40 mg QAM PO 08/18/17 09:00 09/17/17 08:59 Future Hold 08/18/17 09:03 40 MG Carvedilol (Coreg Tab) 18.75 mg BID PO 08/17/17 21:00 09/16/17 20:59 08/25/17 08:04 18.75 MG Finasteride (Proscar Tab) 5 mg DAILY PO 08/18/17 09:00 09/17/17 08:59 Future Hold 08/18/17 09:03 5 MG Non-Formulary Medication (Darunavir Ethanolate (Prezista)) 800 mg HS PO 08/17/17 21:00 09/16/17 20:59 UNV Elvitegravir/ Cobicis/Emtricit/ Tenof (Genvoya [phone] Mg) 1 tab DAILY PO 08/18/17 09:00 09/17/17 08:59 Future Hold 08/18/17 09:17 1 TAB Morphine Sulfate (MoRPHine SULFATE INJ) 4 mg Q4H PRN IV 08/17/17 14:15 08/31/17 14:14 08/18/17 21:41 4 MG Famotidine 20 mg/ Syringe 5 ml @ 2.5 mls/min Q12H IV 08/18/17 19:00 09/17/17 18:59 08/25/17 07:17 2.5 MLS/MIN Zolpidem Tartrate (Ambien Tab) 5 mg HS PRN PO 08/18/17 22:00 09/17/17 21:59 Future Hold 08/18/17 23:16 5 MG Hydralazine HCl (HydrALAZINE INJ) 10 mg Q6H PRN IV. 08/19/17 10:30 09/18/17 10:29 08/22/17 04:13 10 MG Ciprofloxacin/ Dextrose 400 mg/ Prmx 200 ml @ 100 mls/hr Q24H IV 08/19/17 16:00 08/29/17 15:59 08/24/17 16:32 100 MLS/HR Metronidazole 500 mg/Prmx 100 ml @ 100 mls/hr Q8H IV 08/19/17 14:30 08/29/17 14:29 08/25/17 05:46 100 MLS/HR Ciprofloxacin (Consult) 1 ea UD PRN N/A 08/19/17 14:15 09/18/17 14:14 Menthol (Nice Nory) 1 nory Q1H PRN PO 08/19/17 18:45 09/18/17 18:44 08/19/17 18:53 1 NORY Albuterol/ Ipratropium (Duoneb) 3 ml Q6H PRN INH 08/20/17 12:00 09/18/17 11:59 08/20/17 19:58 3 ML Hydromorphone HCl (Dilaudid Inj) 0.5 mg Q3H PRN IV 08/20/17 13:30 09/03/17 13:29 08/24/17 19:17 0.5 MG Hydromorphone HCl (Dilaudid Inj) 1 mg Q3H PRN IV 08/20/17 13:30 09/03/17 13:29 08/22/17 19:47 1 MG Amlodipine Besylate (Norvasc Tab) 10 mg QAM PO 08/23/17 09:00 09/22/17 08:59 08/25/17 08:05 10 MG Dextrose 1,000 ml @ 0 mls/hr Q0M PRN IV 08/23/17 16:00 09/22/17 15:59 Miscellaneous Information (Pharmacy Tpn/ Ppn Consult Active) 1 UD PRN N/A 08/23/17 07:00 09/22/17 06:59 Insulin Aspart (novoLOG ASPART) SLIDING SCALE If C... Q6 SC 08/24/17 00:00 09/21/17 17:14 08/25/17 06:01 1 UNITS Metoclopramide HCl (Reglan Inj) 10 mg Q6 IV. 08/24/17 06:30 09/23/17 06:29 08/25/17 05:46 10 MG Senna (Senokot Syrup) 8.8 mg BID PO 08/24/17 09:00 09/23/17 08:59 08/25/17 08:06 8.8 MG Nutrition (Parenteral) 0 ml @ 0 mls/hr TODAY@1600 IV 08/24/17 16:00 08/25/17 15:59 08/24/17 17:37 0 MLS/HR Heparin Sodium (Porcine) (Heparin 10 Unit/ ml 5 ml Flush) 5 ml PRN PRN FLUSH 08/25/17 02:15 09/24/17 02:14 08/25/17 07:17 5 ML Heparin Sodium (Porcine) (Heparin Sq 5000 Unit/0.5ml) 5,000 unit Q12 SC 08/25/17 09:00 09/24/17 08:59 08/25/17 08:10 5,000 UNIT (Madelyn Buckley, PA-C) Objective Vital Signs Date Time Temp Pulse Resp B/P (MAP) Pulse Ox O2 Delivery O2 Flow Rate FiO2 08/25/17 07:36 36.7 62 18 191/85 (120) 96 Room Air 08/25/17 07:25 Room Air 08/25/17 00:50 Room Air 08/24/17 23:20 36.8 61 20 161/76 (104) 100 Room Air 08/24/17 16:30 Room Air 08/24/17 15:32 36.5 60 20 167/75 (105) 94 Room Air (Madelyn Buckley, PA-C) Physical Exam General Appearance: no apparent distress Eyes: normal inspection, PERRL ENT: hearing grossly normal, + pertinent finding (NG tube ) Neck: supple Respiratory/Chest: lungs clear, no respiratory distress, no accessory muscle use, + decreased breath sounds (throughout ) Cardiovascular: regular rate, rhythm Abdomen: normal bowel sounds, non tender, soft, + distended, + pertinent finding (inicision site bandage C/D/I ) Extremities: no pedal edema, no calf tenderness, + pertinent finding (RUE PICC line ) Neurologic/Psychiatric: alert, normal mood/affect, oriented x 3 Skin: normal color, warm/dry, no rash (Madelyn Buckley ., PA-C) Laboratory Results Last 24 Hours Test 08/24/17 11:55 1/16/18 17:16 08/25/17 00:02 08/25/17 05:40 Bedside Glucose 226 mg/dl 190 mg/dl 237 mg/dl White Blood Count 10.80 K/uL Red Blood Count 3.18 M/uL Hemoglobin 10.2 g/dL Hematocrit 29.3 % Mean Corpuscular Volume 92.1 fL Mean Corpuscular Hemoglobin 32.1 pg Mean Corpuscular Hemoglobin Concent 34.8 g/dl RDW Standard Deviation 41.1 fL RDW Coefficient of Variation 12.3 % Platelet Count 315 K/uL Mean Platelet Volume 10.2 fL Sodium Level 145 mmol/L Potassium Level 3.9 mmol/L Chloride Level 118 mmol/L Carbon Dioxide Level 21 mmol/L Anion Gap 6.0 mmol/L Blood Urea Nitrogen 75 mg/dl Creatinine 3.96 mg/dl Est Creatinine Clear Calc Drug Dose 16.0 ml/min Estimated GFR () 17.5 Estimated GFR (Non- 15.1 BUN/Creatinine Ratio 19.0 Random Glucose 257 mg/dl Calcium Level 7.5 mg/dl Phosphorus Level 3.6 mg/dl Magnesium Level 2.5 mg/dl Test 08/25/17 05:52 Bedside Glucose 185 mg/dl (Madelyn Buckley, PA-C) Assessment and Plan 61 y/o transgender female with a history of HTN, HLD, sick sinus syndrome s/p pacemaker 04/26/17, DM II, CKD stage III, anemia of chronic disease, and HIV who presented to the ED on 08/16 from [facility] with abdominal pain, nausea and vomiting. Pt afebrile, VSS on arrival. O2 sat did drop to 85%, placed on 2L NC. CXR with possible left base consolidation vs atelectasis. CT abdomen/ pelvis with distal small bowel obstructive change and inflammatory change of the appendix with associated appendicolith. Creatinine 2.50, elevated above baseline. POC lactic acid 2.15. LFTs elevated. s/p ex-lap on 08/[address] Elizabeth for SBO, finding ruptured appendicitis with abscess formation: - NG tube placed on 08/19- removed on 08/22 and diet advanced to clears- did not tolerated and NG replaced on 08/23- placed PICC line and started TPN on 08/24 - Treated w/ IVF @ 100 ml/hr while NPO- ECHO from 04/2017 w/ preserved EF - Morphine 4 mg IV q4h, IV Dilaudid PRN for pain management - Abdominal cultures growing Pseudomonas- sensitives reviewed- IV Cipro + Flagyl x10 days- started on 08/19, last day on 06/29 - General surgery consulted, appreciate recommendations- surgical management as per surgery - GI consulted, appreciate recommendations Acute respiratory and metabolic acidosis secondary to LEEROY- STABLE: - ICU due to postop anesthesia complications/renal failure- STABLE- transferred to tele on 08/21 and med/surg on 08/22 - DuoNebs QID and PRN - CXR on 08/23- PNA vs atelectasis -- Likely atelectasis due to no cough/sputum production, fever/chills, or WBC - however, IV Cipro for coverage as above -- Encourage incentive spirometer, ambulation, OOB in chair QS - Nephrology following LEEROY on CKD stage II, likely secondary to ATN- 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- 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 3.96 today, anemia of chronic disease- baseline hgb 10: - Avoid nephrotoxic agents and renally dose medications as appropriate - Follow PRP and UO - Nephrology consulted, appreciate recommendations- no need for acute HD at this time HTN, HLD, sick sinus syndrome s/p pacemaker 04/26/17: - Lipitor 40 mg PO qd held until tolerating full PO intake - Continue Coreg 18.75 mg PO BID and Norvasc 10 mg daily - IV Hydralazine PRN T2DM- last HgbA1c 5.0%: - Hold Glipizide while inpatient - BSG ACHS and ISS HIV: Continue Genvoya 1 tab PO qd and Prezista 800 mg PO HS once tolerating full PO intake BPH: Hold Proscar 5 mg PO qd until tolerating full PO intake Glaucoma: Continue Latanoprost drops GI prophylaxis: IV Pepcid DVT prophylaxis: Heparin SQ BID Code Status: LEVEL I, FULL Dispo: From [facility] (Madelyn Buckley, PA-C) Supervising Note Dr. Benito I performed a history and physical examination on the patient. I reviewed above note and agree with it. I discussed plan with APC and patient. During my face to face encounter with the patient, I answered all of the patient's questions. (Derek Benito M.D.)
[2017-08-25 10:26] VITALS: BP 167/83
--- NOTE | 2017-08-25 12:31 | Pharmacy Progress Note ---
Parenteral Nutrition Consult Date of Service Aug 25, 2017. Scope Pharmacy was consulted to manage parenteral nutrition orders for this patient. Subjective The patient is currently on day 2 of parenteral nutrition. Objective Height (Feet): 5 Height (Inches): 4.00 Weight (Kilograms): 63.600 Diet: NPO Vascular Access: PICC placed Intake & Output (Last 72 Hr): 08/24/17 08/25/17 08/26/17 08:00 08:00 08:00 Intake Total 2888 ml 2027 ml Output Total 4080 ml 3290 ml Balance -1192 ml -1263 ml Laboratory Data (Last 24 Hr): Test 08/25/17 05:40 Blood Urea Nitrogen 75 mg/dl (7-18) Calcium Level 7.5 mg/dl (8.5-10.1) Carbon Dioxide Level 21 mmol/L (21-32) Chloride Level 118 mmol/L (98-107) Creatinine 3.96 mg/dl (0.60-1.40) Magnesium Level 2.5 mg/dl (1.8-2.4) Phosphorus Level 3.6 mg/dl (2.5-4.9) Potassium Level 3.9 mmol/L (3.5-5.1) Random Glucose 257 mg/dl (70-99) Sodium Level 145 mmol/L (136-145) Nutrition Assessment Please refer to the Notes section of the EMR for the most recent animal researcher note. Assessment * PICC line placed - will change from PPN of 2400 mL to TPN minimum volume today * New dietitian recommendations for TPN noted * Significant electrolyte abnormalities in setting of acute on chronic kidney disease * Will continue to avoid addition of Na, Cl, and Magnesium in PPN * Recent hyperphosphatemia - will also not add phos at this time * Titrating up dextrose slowly 2nd risk of refeeding * Acknowledge that this may decrease K, Phos, Mag, but still will avoid addition in TPN as patient may easily become elevated 2nd significant renal dysfunction. If necessary, will replete outside of TPN Plan For day 2 of PN administration, the following will be ordered: Macronutrients Amino acids 75 grams/day Dextrose 150 grams/day Lipids 50 grams/day Micronutrients Potassium acetate 20 mEq Calcium gluconate 4.65 mEq Multivitamins 10 mL Trace Elements 1 mL Total volume 1245 mL to be infused over 24 hrs will provide 1310 kcal/day Labs, as indicated, will be ordered per protocol Pharmacy will continue to follow and adjust parenteral nutrition orders on a daily basis. Thank you for allowing us to participate in the care of this patient.
[2017-08-25] MEDS ORDERED: INSULIN HUMAN REGULAR PER UNIT 5 UNITS in SYRINGE 4.95 ML IV STA (13:17)
--- NOTE | 2017-08-25 14:35 | Surgery Progress Note ---
Surgery Progress Note Date of Service Aug 25, 2017. Objective Vital Signs: Date Time Temp Pulse Resp B/P (MAP) Pulse Ox O2 Delivery O2 Flow Rate FiO2 08/25/17 10:26 167/83 (111) 08/25/17 07:36 36.7 62 18 191/85 (120) 96 Room Air 08/25/17 07:25 Room Air 08/25/17 00:50 Room Air 08/24/17 23:20 36.8 61 20 161/76 (104) 100 Room Air 08/24/17 16:30 Room Air 08/24/17 15:32 36.5 60 20 167/75 (105) 94 Room Air Laboratory Results: Results Past 24 Hours Test 08/24/17 17:16 08/25/17 00:02 08/25/17 05:40 08/25/17 05:52 Range/Units Bedside Glucose 190 237 185 70-99 mg/dl White Blood Count 10.80 4.8-10.8 K/uL Red Blood Count 3.18 4.7-6.1 M/uL Hemoglobin 10.2 14.0-18.0 g/dL Hematocrit 29.3 42-52 % Mean Corpuscular Volume 92.1 80-100 fL Mean Corpuscular Hemoglobin 32.1 25-34 pg Mean Corpuscular Hemoglobin Concent 34.8 32-36 g/dl RDW Standard Deviation 41.1 36.4-46.3 fL RDW Coefficient of Variation 12.3 11.5-14.5 % Platelet Count 315 130-400 K/uL Mean Platelet Volume 10.2 7.4-10.4 fL Sodium Level 145 136-145 mmol/L Potassium Level 3.9 3.5-5.1 mmol/L Chloride Level 118 98-107 mmol/L Carbon Dioxide Level 21 21-32 mmol/L Anion Gap 6.0 3-11 mmol/L Blood Urea Nitrogen 75 7-18 mg/dl Creatinine 3.96 0.60-1.40 mg/dl Est Creatinine Clear Calc Drug Dose 16.0 ml/min Estimated GFR () 17.5 Estimated GFR (Non- 15.1 BUN/Creatinine Ratio 19.0 10-20 Random Glucose 257 70-99 mg/dl Calcium Level 7.5 8.5-10.1 mg/dl Phosphorus Level 3.6 2.5-4.9 mg/dl Magnesium Level 2.5 1.8-2.4 mg/dl Test 08/25/17 11:44 Range/Units Bedside Glucose 300 70-99 mg/dl Assessment & Plan 08/25/17- intraop cult- pseudomonas- sens to Cipro- discussed with Dr Darnell- cont same for now- ID will see as pt is HIV + 08/25/17- will order Tpn- central w/ picc line, d/c velazquez, leave drain. cont NG as he is still distended. overall some progress but expected to be slow. coughing up loose secretions- cont atbx 08/24/17- ileus not unexpected- ppn ordered- not started- pharmacy notified. Will probably benefit from picc line for addnl calories cont NG, try some Reglan. cont wound care, IV atbx 08/23/17- pt s/p laparotomy , lysis of adhesions, drainage abd abscess appendectomy- at risk for ileus- vomited- check film, clears only if vomits again will need NG- order periph tpn- may need Picc line ambulate 08/20/17- GI evaluation noted- on IV atbx- distention of abd same or worse will try to give some contrast via NG and rescan pt- no IV contrast considering abd exploration- will also discuss with GI 08/19/17- Persistent distention- ? gastric, ? bowel- atypical for mechanical sbo - will have NG placed, check labs, will possibly need contrast study but will not tolerate po- ask GI to see . may come explor lap if does not resolve 08/18/17- will try full liquids- nephrology checking on pt will cont to follow progress 08/25/17- will order Tpn- central w/ picc line, d/c velazquez, leave drain. cont NG as he is still distended. overall some progress but expected to be slow. coughing up loose secretions- cont atbx 08/24/17- ileus not unexpected- ppn ordered- not started- pharmacy notified. Will probably benefit from picc line for addnl calories cont NG, try some Reglan. cont wound care, IV atbx 08/23/17- pt s/p laparotomy , lysis of adhesions, drainage abd abscess appendectomy- at risk for ileus- vomited- check film, clears only if vomits again will need NG- order periph tpn- may need Picc line ambulate 08/20/17- GI evaluation noted- on IV atbx- distention of abd same or worse will try to give some contrast via NG and rescan pt- no IV contrast considering abd exploration- will also discuss with GI 08/19/17- Persistent distention- ? gastric, ? bowel- atypical for mechanical sbo - will have NG placed, check labs, will possibly need contrast study but will not tolerate po- ask GI to see . may come explor lap if does not resolve 08/18/17- will try full liquids- nephrology checking on pt will cont to follow progress
[2017-08-25 15:45] VITALS: BP 136/90; PULSE 95; TEMP 36.3; O2SAT 94
[2017-08-25] MEDS: CIPROFLOXACIN / D5W 400 MG in PREMIXED IN D5W 200 ML IV SCH (15:53)
[2017-08-25] MEDS: HYDROmorphone INJ 1 MG/ML SYR IV PRN (15:54)
[2017-08-25] MEDS: LATANOPROST 0.005% OP SOLN 2.5 ML BTL OPB SCH (20:29)
[2017-08-25 23:05] VITALS: BP 161/77; PULSE 65; TEMP 36.7; O2SAT 95
[2017-08-26] MEDS: INSULIN ASPART 100 UNITS/ML 3 ML PEN SC SCH ×4 (00:10→18:23)
[2017-08-26] MEDS: METOCLOPRAMIDE HCL INJ 5 MG/ML 2 ML VIAL IV. SCH ×4 (00:30→18:13)
[2017-08-26] MEDS: METRONIDAZOLE / NSS 500 MG in PREMIXED NSS 100 ML IV SCH ×3 (05:37→22:06)
[2017-08-26] MEDS ORDERED: MINERAL OIL 30 ML UDC PO ONE (05:45)
--- NOTE | 2017-08-26 06:11 | Surgery Progress Note ---
Surgery Progress Note Date of Service Aug 26, 2017. Subjective says he is passing flatus and + bm less NG output w/ clamping less peripheral edema Objective Vital Signs: Date Time Temp Pulse Resp B/P (MAP) Pulse Ox O2 Delivery O2 Flow Rate FiO2 08/25/17 23:05 36.7 65 16 161/77 (105) 95 Room Air 08/25/17 20:30 Room Air 08/25/17 15:45 36.3 95 18 136/90 (105) 94 Room Air 08/25/17 10:26 167/83 (111) 08/25/17 07:36 36.7 62 18 191/85 (120) 96 Room Air 08/25/17 07:25 Room Air General Appearance: no apparent distress Respiratory/Chest: no respiratory distress Abdomen: + distended (less, decreased bowel activity) Laboratory Results: Results Past 24 Hours Test 08/25/17 11:44 08/25/17 18:36 08/25/17 23:58 08/26/17 05:29 Range/Units Bedside Glucose 300 212 277 70-99 mg/dl Assessment & Plan 08/26/17- some slow improvement- not yet convinced GI activity ready for removal of NG- cont Tpn, try sips of clears w/ NG clamped. increase mobility if possible 08/25/17- intraop cult- pseudomonas- sens to Cipro- discussed with Dr Darnell- cont same for now- ID will see as pt is HIV + 08/25/17- will order Tpn- central w/ picc line, d/c velazquez, leave drain. cont NG as he is still distended. overall some progress but expected to be slow. coughing up loose secretions- cont atbx 08/24/17- ileus not unexpected- ppn ordered- not started- pharmacy notified. Will probably benefit from picc line for addnl calories cont NG, try some Reglan. cont wound care, IV atbx 08/23/17- pt s/p laparotomy , lysis of adhesions, drainage abd abscess appendectomy- at risk for ileus- vomited- check film, clears only if vomits again will need NG- order periph tpn- may need Picc line ambulate 08/20/17- GI evaluation noted- on IV atbx- distention of abd same or worse will try to give some contrast via NG and rescan pt- no IV contrast considering abd exploration- will also discuss with GI 08/19/17- Persistent distention- ? gastric, ? bowel- atypical for mechanical sbo - will have NG placed, check labs, will possibly need contrast study but will not tolerate po- ask GI to see . may come explor lap if does not resolve 08/18/17- will try full liquids- nephrology checking on pt will cont to follow progress 08/25/17- intraop cult- pseudomonas- sens to Cipro- discussed with Dr Darnell- cont same for now- ID will see as pt is HIV + 08/25/17- will order Tpn- central w/ picc line, d/c velazquez, leave drain. cont NG as he is still distended. overall some progress but expected to be slow. coughing up loose secretions- cont atbx 08/24/17- ileus not unexpected- ppn ordered- not started- pharmacy notified. Will probably benefit from picc line for addnl calories cont NG, try some Reglan. cont wound care, IV atbx 08/23/17- pt s/p laparotomy , lysis of adhesions, drainage abd abscess appendectomy- at risk for ileus- vomited- check film, clears only if vomits again will need NG- order periph tpn- may need Picc line ambulate 08/20/17- GI evaluation noted- on IV atbx- distention of abd same or worse will try to give some contrast via NG and rescan pt- no IV contrast considering abd exploration- will also discuss with GI 08/19/17- Persistent distention- ? gastric, ? bowel- atypical for mechanical sbo - will have NG placed, check labs, will possibly need contrast study but will not tolerate po- ask GI to see . may come explor lap if does not resolve 08/18/17- will try full liquids- nephrology checking on pt will cont to follow progress
[2017-08-26 06:28] LABS: CALCIUM 7.6 mg/dl (8.5-10.1); CREATININE 3.57 mg/dl (0.60-1.40); POTASSIUM 3.5 mmol/L (3.5-5.1)
[2017-08-26 06:38] LABS: PHOSPHORUS 2.7 mg/dl (2.5-4.9)
[2017-08-26] MEDS: FAMOTIDINE IV INJ 20 MG in SYRINGE 3 ML IV SCH ×2 (07:04→18:49)
[2017-08-26 07:28] VITALS: BP 177/83; PULSE 64; TEMP 36.9; O2SAT 96
--- NOTE | 2017-08-26 08:41 | DIAGNOSTIC IMAGING REPORT ---
ABDOMEN 2 VIEWS HISTORY: 61 years-old Male NG position and h/o sbo status post placement of enteric tube. COMPARISON: Acute abdominal series radiographs 08/23/2015 TECHNIQUE: 2 views of the abdomen FINDINGS: Status post placement of an enteric tube with distal tip overlying the right upper abdomen within the expected region of the distal gastric lumen. Dilated loops of small bowel are again seen throughout the abdomen with air-fluid levels. Loops of bowel measure up to approximately 4.8 cm. This appears generally stable to slightly worsened from comparison. No definite pneumatosis or pneumoperitoneum. Pacer leads are seen overlying the heart. Left basilar consolidation redemonstrated probable small right pleural effusion. Skin bryson are seen overlying the midline lower abdomen. Drainage catheter overlies the left pelvis. No fracture or urolith. IMPRESSION: 1. Enteric tube overlies the right upper abdomen in the expected region of the distal gastric lumen. 2. Stable to slightly progressed small bowel dilation. The above report was generated using voice recognition software. It may contain grammatical, syntax or spelling errors. Electronically signed by: Dickson Tate M.D. 08/26/2017 8:40 AM Dictated Date/Time: 08/26/2017 8:37 AM
--- NOTE | 2017-08-26 09:30 | Nephrology Progress Note ---
Nephrology Progress Note Date of Service Aug 26, 2017. Chief Complaint Acute on CKD Princess Ibarra was seen & examined in her hospital room this morning. She reports improvement. NG tube remains in place. Patient is voiding easily following velazquez catheter removal. Review of Systems Constitutional: No fever Cardiovascular: No chest pain Respiratory: No dyspnea at rest Abdomen: No vomiting, No diarrhea Genitourinary - Male: No dysuria Extremities: No leg edema A complete review of systems was performed. Pertinent positives are noted above. All other systems are negative. Vital Signs Last 8 Hrs Date Time Temp Pulse Resp B/P (MAP) Pulse Ox O2 Delivery O2 Flow Rate FiO2 08/26/17 08:30 Room Air 08/26/17 07:28 36.9 64 19 177/83 (114) 96 Room Air Last Recorded Weight Weight (Kilograms): 63.600 Physical Exam General Appearance: no apparent distress Head: atraumatic Eyes: PERRL, EOMI Neck: no adenopathy Respiratory/Chest: lungs clear, no respiratory distress Cardiovascular: regular rate, rhythm, no murmur Abdomen/GI: + distended (no bowel sounds) Extremities/Musculoskelatal: no calf tenderness, no pedal edema Neurologic/Psych: alert, oriented x 3 Family History Diabetes mellitus Hypertension Social History Smokeless Tobacco Use: No Alcohol Use: none Drug Use: none Marital Status: single Housing Status: other ([facility]) Occupation: unemployed Laboratory Results Past 24 Hours 08/26/17 05:29 Test 08/25/17 11:44 08/25/17 18:36 08/25/17 23:58 08/26/17 05:29 Bedside Glucose 300 mg/dl (70-99) 212 mg/dl (70-99) 277 mg/dl (70-99) Anion Gap 6.0 mmol/L (3-11) Est Creatinine Clear Calc Drug Dose 17.7 ml/min Estimated GFR () 19.8 Estimated GFR (Non- 17.1 BUN/Creatinine Ratio 20.9 (10-20) Calcium Level 7.6 mg/dl (8.5-10.1) Phosphorus Level 2.7 mg/dl (2.5-4.9) Magnesium Level 2.2 mg/dl (1.8-2.4) Test 08/26/17 05:35 Bedside Glucose 238 mg/dl (70-99) Allergies Coded Allergies: Penicillins (Verified Allergy, Intermediate, UNKNOWN, 08/17/17) Medications Current Inpatient Medications Medications (Trade) Dose Ordered Sig/Carlin Route Start Time Stop Time Status Last Admin Dose Admin Acetaminophen (Tylenol Tab) 650 mg Q4H PRN PO 08/17/17 13:45 09/16/17 13:44 08/18/17 09:17 650 MG Al Hydrox/Mg Hydrox/Simethicone (Maalox Max Susp) 15 ml Q4H PRN PO 08/17/17 13:45 09/16/17 13:44 08/18/17 21:37 15 ML Magnesium Hydroxide (Milk Of Magnesia Susp) 30 ml Q6H PRN PO 08/17/17 13:45 09/16/17 13:44 Polyethylene (Miralax Powder Packet) 17 gm DAILY PRN PO 08/17/17 15:00 09/16/17 14:59 Ondansetron HCl (Zofran Inj) 4 mg Q6H PRN IV 08/17/17 13:45 09/16/17 13:44 08/23/17 05:47 4 MG Glucose (Glucose 40% Gel) 15-30 GRAMS 15 GRAMS... UD PRN PO 08/17/17 13:45 09/16/17 13:44 Glucose (Glucose Chew Tab) 4-8 Tablets 4 Tabl... UD PRN PO 08/17/17 13:45 09/16/17 13:44 Dextrose (Dextrose 50% 50ML Syringe) 25-50ML OF 50% DW IV FOR... UD PRN IV 08/17/17 13:45 09/16/17 13:44 Glucagon (Glucagon Inj) 1 mg UD PRN SQ 08/17/17 13:45 09/16/17 13:44 Latanoprost (Xalatan Oph Soln) 1 drops HS OPB 08/17/17 21:00 09/16/17 20:59 08/25/17 20:29 1 DROPS Atorvastatin Calcium (Lipitor Tab) 40 mg QAM PO 08/18/17 09:00 09/17/17 08:59 Future Hold 08/18/17 09:03 40 MG Carvedilol (Coreg Tab) 18.75 mg BID PO 08/17/17 21:00 09/16/17 20:59 08/25/17 20:31 18.75 MG Finasteride (Proscar Tab) 5 mg DAILY PO 08/18/17 09:00 09/17/17 08:59 Future Hold 08/18/17 09:03 5 MG Non-Formulary Medication (Darunavir Ethanolate (Prezista)) 800 mg HS PO 08/17/17 21:00 09/16/17 20:59 UNV Elvitegravir/ Cobicis/Emtricit/ Tenof (Genvoya [phone] Mg) 1 tab DAILY PO 08/18/17 09:00 09/17/17 08:59 Future Hold 08/18/17 09:17 1 TAB Morphine Sulfate (MoRPHine SULFATE INJ) 4 mg Q4H PRN IV 08/17/17 14:15 08/31/17 14:14 08/18/17 21:41 4 MG Famotidine 20 mg/ Syringe 5 ml @ 2.5 mls/min Q12H IV 08/18/17 19:00 09/17/17 18:59 08/26/17 07:04 2.5 MLS/MIN Zolpidem Tartrate (Ambien Tab) 5 mg HS PRN PO 08/18/17 22:00 09/17/17 21:59 Future Hold 08/18/17 23:16 5 MG Hydralazine HCl (HydrALAZINE INJ) 10 mg Q6H PRN IV. 08/19/17 10:30 09/18/17 10:29 08/22/17 04:13 10 MG Ciprofloxacin/ Dextrose 400 mg/ Prmx 200 ml @ 100 mls/hr Q24H IV 08/19/17 16:00 08/29/17 15:59 08/25/17 15:53 100 MLS/HR Metronidazole 500 mg/Prmx 100 ml @ 100 mls/hr Q8H IV 08/19/17 14:30 08/29/17 14:29 08/26/17 05:37 100 MLS/HR Ciprofloxacin (Consult) 1 ea UD PRN N/A 08/19/17 14:15 09/18/17 14:14 Menthol (Nice Nory) 1 nory Q1H PRN PO 08/19/17 18:45 09/18/17 18:44 08/19/17 18:53 1 NORY Albuterol/ Ipratropium (Duoneb) 3 ml Q6H PRN INH 08/20/17 12:00 09/18/17 11:59 08/20/17 19:58 3 ML Hydromorphone HCl (Dilaudid Inj) 0.5 mg Q3H PRN IV 08/20/17 13:30 09/03/17 13:29 08/24/17 19:17 0.5 MG Hydromorphone HCl (Dilaudid Inj) 1 mg Q3H PRN IV 08/20/17 13:30 09/03/17 13:29 08/25/17 15:54 1 MG Amlodipine Besylate (Norvasc Tab) 10 mg QAM PO 08/23/17 09:00 09/22/17 08:59 08/25/17 08:05 10 MG Dextrose 1,000 ml @ 0 mls/hr Q0M PRN IV 08/23/17 16:00 09/22/17 15:59 Miscellaneous Information (Pharmacy Tpn/ Ppn Consult Active) 1 ea UD PRN N/A 08/23/17 07:00 09/22/17 06:59 Insulin Aspart (novoLOG ASPART) SLIDING SCALE If C... Q6 SC 08/24/17 00:00 09/21/17 17:14 08/26/17 05:48 4 UNITS Metoclopramide HCl (Reglan Inj) 10 mg Q6 IV. 08/24/17 06:30 09/23/17 06:29 08/26/17 05:35 10 MG Senna (Senokot Syrup) 8.8 mg BID PO 08/24/17 09:00 09/23/17 08:59 08/25/17 20:33 8.8 MG Heparin Sodium (Porcine) (Heparin 10 Unit/ ml 5 ml Flush) 5 ml PRN PRN FLUSH 08/25/17 02:15 09/24/17 02:14 08/26/17 07:04 5 ML Heparin Sodium (Porcine) (Heparin Sq 5000 Unit/0.5ml) 5,000 unit Q12 SC 08/25/17 09:00 09/24/17 08:59 08/25/17 08:10 5,000 UNIT Nutrition (Parenteral) 0 ml @ 0 mls/hr TODAY@1600 IV 08/25/17 16:00 08/26/17 15:59 08/25/17 15:54 0 MLS/HR Impression (1) Acute kidney injury (2) CKD (chronic kidney disease), stage III (3) SBO (small bowel obstruction) (4) Proteinuria (5) Anemia (6) HTN (hypertension) (7) HIV (human immunodeficiency virus infection) Stacey has a past medical history significant for HTN, CKD and HIV. She was admitted to the hospital with SBO. She has stage III CKD w/ baseline creatinine 2.0 - 2.5. LEEROY was most likely ATN related to dehydration and small- bowel obstruction. CT abdomen & pelvis was negative for hydronephrosis. CKD is likely related to hypertensive/diabetic nephropathy but possibility for intrinsic glomerular disease such as FSGS with HIV or nephropathy from anti- retroviral medication remains. Patient is s/p exploratory laparotomy 08/20/2017: abdominal abscesses from ruptured appendix. Recommendations ACUTE KIDNEY INJURY: -- Creatinine peaked at 5.3. Patient remains within the recovery phase of ATN. Creatinine improved to 3.5 today. Patient is now nonoliguric -- Patient has been started on PPN. Will monitor PRP. No acute indication for HD at this time CHRONIC KIDNEY DISEASE: -- Baseline creatinine has been 2.0 - 2.5 METABOLIC ACIDOSIS: -- High anion gap acidosis and hypernatremia have resolved. Will monitor ID: -- Peritoneal fluid culture w/ Pseudomonas sensitive to Cipro -- Awaiting ID input
[2017-08-26] MEDS: HEPARIN SOD 5000 UNIT/0.5 ML CARP SC SCH ×2 (10:33→21:06)
[2017-08-26] MEDS: CARVEDILOL 12.5 MG TAB PO SCH ×2 (10:36→21:04)
[2017-08-26] MEDS: AMLODIPINE BESYLATE 5 MG TAB PO SCH (10:36)
[2017-08-26] MEDS: SENNA 8.8 MG/5 ML UDP PO SCH ×2 (10:37→21:05)
--- NOTE | 2017-08-26 10:43 | Medical Consult ---
Consultation Date of Consultation: Aug 26, 2017. Attending Physician: Lamine Drew D.O. Reason for Consultation: HIV positive History of Present Illness 61-year-old transgender female, well known to me from HIV follow-up with longstanding HIV disease who had been well controlled on combination of Genvoya and Prezista. Viral load has been undetectable, and her CD4 count greater than 1000. She was admitted to the hospital with worsening abdominal pain, and eventually had exploratory laparotomy with finding of ruptured appendix with small bowel obstruction. Intraoperative cultures have grown Pseudomonas aeruginosa, and anaerobic gram-positive bacilli. Patient has been on ciprofloxacin and metronidazole and improving slowly. Abdominal pain controlled. No bowel movement as of yet. Has had no fever. White count [id number] Past Medical/Surgical History Medical Problems: (1) Acute renal failure Status: Acute (2) Bradycardia Status: Acute (3) Cardiopulmonary arrest Status: Acute (4) GI bleed Status: Acute (5) Heart block Status: Acute (6) PNA (pneumonia) Status: Acute (7) Renal failure Status: Acute (8) SBO (small bowel obstruction) Status: Acute (9) Sepsis Status: Acute Medical Problems: (1) Abdominal pain (2) Acute kidney injury (3) Anemia (4) Cardiac arrest (5) CKD (chronic kidney disease), stage III (6) CVA (cerebral vascular accident) (7) DM type 2 (diabetes mellitus, type 2) (8) G-6-PD deficiency (9) HIV (human immunodeficiency virus infection) (10) HTN (hypertension) (11) [id number] transgender person (12) Proteinuria Family History Diabetes mellitus Hypertension Social History Smoking Status: Unknown if Ever Smoked Smokeless Tobacco Use: No Alcohol Use: none Drug Use: none Marital Status: single Housing Status: other Occupation Status: unemployed Allergies Coded Allergies: Penicillins (Verified Allergy, Intermediate, UNKNOWN, 08/17/17) Current Inpatient Medications Current Inpatient Medications Medications (Trade) Dose Ordered Sig/Carlin Route Start Time Stop Time Status Last Admin Dose Admin Acetaminophen (Tylenol Tab) 650 mg Q4H PRN PO 08/17/17 13:45 09/16/17 13:44 08/18/17 09:17 650 MG Al Hydrox/Mg Hydrox/Simethicone (Maalox Max Susp) 15 ml Q4H PRN PO 08/17/17 13:45 09/16/17 13:44 08/18/17 21:37 15 ML Magnesium Hydroxide (Milk Of Magnesia Susp) 30 ml Q6H PRN PO 08/17/17 13:45 09/16/17 13:44 Polyethylene (Miralax Powder Packet) 17 gm DAILY PRN PO 08/17/17 15:00 09/16/17 14:59 Ondansetron HCl (Zofran Inj) 4 mg Q6H PRN IV 08/17/17 13:45 09/16/17 13:44 08/23/17 05:47 4 MG Glucose (Glucose 40% Gel) 15-30 GRAMS 15 GRAMS... UD PRN PO 08/17/17 13:45 09/16/17 13:44 Glucose (Glucose Chew Tab) 4-8 Tablets 4 Tabl... UD PRN PO 08/17/17 13:45 09/16/17 13:44 Dextrose (Dextrose 50% 50ML Syringe) 25-50ML OF 50% DW IV FOR... UD PRN IV 08/17/17 13:45 09/16/17 13:44 Glucagon (Glucagon Inj) 1 mg UD PRN SQ 08/17/17 13:45 09/16/17 13:44 Latanoprost (Xalatan Oph Soln) 1 drops HS OPB 08/17/17 21:00 09/16/17 20:59 08/25/17 20:29 1 DROPS Atorvastatin Calcium (Lipitor Tab) 40 mg QAM PO 08/18/17 09:00 09/17/17 08:59 Future Hold 08/18/17 09:03 40 MG Carvedilol (Coreg Tab) 18.75 mg BID PO 08/17/17 21:00 09/16/17 20:59 08/25/17 20:31 18.75 MG Finasteride (Proscar Tab) 5 mg DAILY PO 08/18/17 09:00 09/17/17 08:59 Future Hold 08/18/17 09:03 5 MG Non-Formulary Medication (Darunavir Ethanolate (Prezista)) 800 mg HS PO 08/17/17 21:00 09/16/17 20:59 UNV Elvitegravir/ Cobicis/Emtricit/ Tenof (Genvoya [phone] Mg) 1 tab DAILY PO 08/18/17 09:00 09/17/17 08:59 Future Hold 08/18/17 09:17 1 TAB Morphine Sulfate (MoRPHine SULFATE INJ) 4 mg Q4H PRN IV 08/17/17 14:15 08/31/17 14:14 08/18/17 21:41 4 MG Famotidine 20 mg/ Syringe 5 ml @ 2.5 mls/min Q12H IV 08/18/17 19:00 09/17/17 18:59 08/26/17 07:04 2.5 MLS/MIN Zolpidem Tartrate (Ambien Tab) 5 mg HS PRN PO 08/18/17 22:00 09/17/17 21:59 Future Hold 08/18/17 23:16 5 MG Hydralazine HCl (HydrALAZINE INJ) 10 mg Q6H PRN IV. 08/19/17 10:30 09/18/17 10:29 08/22/17 04:13 10 MG Ciprofloxacin/ Dextrose 400 mg/ Prmx 200 ml @ 100 mls/hr Q24H IV 08/19/17 16:00 08/29/17 15:59 08/25/17 15:53 100 MLS/HR Metronidazole 500 mg/Prmx 100 ml @ 100 mls/hr Q8H IV 08/19/17 14:30 08/29/17 14:29 08/26/17 05:37 100 MLS/HR Ciprofloxacin (Consult) 1 ea UD PRN N/A 08/19/17 14:15 09/18/17 14:14 Menthol (Nice Nory) 1 nory Q1H PRN PO 08/19/17 18:45 09/18/17 18:44 08/19/17 18:53 1 NORY Albuterol/ Ipratropium (Duoneb) 3 ml Q6H PRN INH 08/20/17 12:00 09/18/17 11:59 08/20/17 19:58 3 ML Hydromorphone HCl (Dilaudid Inj) 0.5 mg Q3H PRN IV 08/20/17 13:30 09/03/17 13:29 08/24/17 19:17 0.5 MG Hydromorphone HCl (Dilaudid Inj) 1 mg Q3H PRN IV 08/20/17 13:30 09/03/17 13:29 08/25/17 15:54 1 MG Amlodipine Besylate (Norvasc Tab) 10 mg QAM PO 08/23/17 09:00 09/22/17 08:59 08/25/17 08:05 10 MG Dextrose 1,000 ml @ 0 mls/hr Q0M PRN IV 08/23/17 16:00 09/22/17 15:59 Miscellaneous Information (Pharmacy Tpn/ Ppn Consult Active) 1 ea UD PRN N/A 08/23/17 07:00 09/22/17 06:59 Insulin Aspart (novoLOG ASPART) SLIDING SCALE If C... Q6 SC 08/24/17 00:00 09/21/17 17:14 08/26/17 05:48 4 UNITS Metoclopramide HCl (Reglan Inj) 10 mg Q6 IV. 08/24/17 06:30 09/23/17 06:29 08/26/17 05:35 10 MG Senna (Senokot Syrup) 8.8 mg BID PO 08/24/17 09:00 09/23/17 08:59 08/25/17 20:33 8.8 MG Heparin Sodium (Porcine) (Heparin 10 Unit/ ml 5 ml Flush) 5 ml PRN PRN FLUSH 08/25/17 02:15 09/24/17 02:14 08/26/17 07:04 5 ML Heparin Sodium (Porcine) (Heparin Sq 5000 Unit/0.5ml) 5,000 unit Q12 SC 08/25/17 09:00 09/24/17 08:59 08/25/17 08:10 5,000 UNIT Nutrition (Parenteral) 0 ml @ 0 mls/hr TODAY@1600 IV 08/25/17 16:00 08/26/17 15:59 08/25/17 15:54 0 MLS/HR Review of Systems Constitutional: No fever Eyes: No problem reported ENT: No problem reported Respiratory: No problem reported Cardiovascular: No problem reported Abdomen: + pain Musculoskeletal: No problem reported Genitourinary - Male: No problem reported Neurologic: No problem reported Psychiatric: No problem reported Endocrine: No problem reported Hematologic / Lymphatic: No problem reported Integumentary: No problem reported Allergic / Immunologic: No problem reported Physical Exam Date Time Temp Pulse Resp B/P (MAP) Pulse Ox O2 Delivery O2 Flow Rate FiO2 08/26/17 08:30 Room Air 08/26/17 07:28 36.9 64 19 177/83 (114) 96 Room Air 08/25/17 23:05 36.7 65 16 161/77 (105) 95 Room Air 08/25/17 20:30 Room Air 08/25/17 15:45 36.3 95 18 136/90 (105) 94 Room Air General Appearance: WD/WN, no apparent distress, + thin Head: normocephalic, atraumatic Eyes: normal inspection, EOMI, sclerae normal ENT: pharynx normal, + pertinent finding (N G-tube in place) Neck: supple, no adenopathy, trachea midline Respiratory/Chest: chest non-tender, lungs clear, normal breath sounds, no respiratory distress Cardiovascular: regular rate, rhythm, no gallop, no murmur Abdomen/GI: normal bowel sounds, no organomegaly, + tenderness, + distended Back: normal inspection, no CVA tenderness Extremities/Musculoskelatal: no calf tenderness, normal capillary refill, non- tender Neurologic/Psych: alert, oriented x 3 Skin: normal color, warm/dry, no rash Lymphatic: no adenopathy Laboratory Results RUN DATE: 08/25/17 [facility] LAB PAGE 1 RUN TIME: 1457 Specimen Inquiry PATIENT: CHAUNCEY CHAU [id number] LOC: SUMEET U # : [id number] AGE/SX: 61/M ROOM: [facility] REG : 08/17/[address]: Lamine Drew DYadiraOYadira : 1955 BED: 2 DIS : STATUS: ADM IN TLOC: SPEC #: [id number] ANTONIO: 08/20/17 STATUS: COMP REQ #: [id number] RECD: 08/20/[address]: Lamine Drew D.OYadira SOURCE: ASP-OTHER ENTR: 08/20/[address]: Shakeel Elizabeth M.D. SPDESC: [place] M.D. Lichtenstein, Jeffrey L., M.D. Nasreen, Fahima [place] SCI, [facility],John Berg JR., PA-C ORDERED: AER/LOUISE CULTSMR Procedure Result Verified Site GRAM STAIN Final 08/20/17 RESULT MANY POLYS NO ORGANISMS SEEN OR AER/LOUISE CULT Final 08/25/17 Organism 1 PSEUDOMONAS AERUGINOSA QUANITY UNABLE TO QUANTITATE SENS SENSITIVITY TO FOLLOW Organism 2 ANAEROBIC GRAM POSITIVE BACILL QUANITY RARE SENS NON-VIABLE FOR FURTHER IDENTIFICATION 1. PSEUDOMONAS AERUGINOSA Target Route Dose RX AB Cost M.I.C. IQ ------ ----- ------ -- ------ -------- - ------ CEFTAZIDIME S 4 CEFEPIME S <=4 IMIPENEM S <=1 AZTREONAM S 8 GENTAMICIN I 8 TOBRAMYCIN S <=4 AMIKACIN S <=16 CIPROFLOXACIN S <=1 LEVOFLOXACIN S <=2 PIP/TAZO S <=16 S = SENSITIVE I = INTERMEDIATE R = RESISTANT Last 24 Hours Test 08/25/17 11:44 08/25/17 18:36 08/25/17 23:58 08/26/17 05:29 Bedside Glucose 300 mg/dl 212 mg/dl 277 mg/dl Sodium Level 144 mmol/L Potassium Level 3.5 mmol/L Chloride Level 118 mmol/L Carbon Dioxide Level 20 mmol/L Anion Gap 6.0 mmol/L Blood Urea Nitrogen 75 mg/dl Creatinine 3.57 mg/dl Est Creatinine Clear Calc Drug Dose 17.7 ml/min Estimated GFR () 19.8 Estimated GFR (Non- 17.1 BUN/Creatinine Ratio 20.9 Random Glucose 242 mg/dl Calcium Level 7.6 mg/dl Phosphorus Level 2.7 mg/dl Magnesium Level 2.2 mg/dl Test 08/26/17 05:35 Bedside Glucose 238 mg/dl Patient Name: CHAUNCEY CHAU [id number] Unit Number: [id number] Dictated: 08/20/17929 Transcribed: 08/20/17929 ARG Printed Date/Time: [~ rep prt dt]/[~ rep prt tm] [~ rep ct labl] - [~ rep ct ivnm] [facility] [place] [place] [address] Dictated: 08/20/17929 Transcribed: 08/20/17929 ARG Printed Date/Time: [~ rep prt dt]/[~ rep prt tm] [~ rep ct labl] - [~ rep ct ivnm] [~ rep ct add3]] CT SCAN OF THE ABDOMEN AND PELVIS WITHOUT CONTRAST CLINICAL HISTORY: Small bowel obstruction. Possible enteritis. COMPARISON STUDY: CT scan dated 08/17/2017 TECHNIQUE: CT scan of the abdomen and pelvis was performed from the lung bases to the proximal femurs. Images are reviewed in the axial, sagittal, and coronal planes. IV contrast was not administered for this examination. A dose lowering technique was utilized adhering to the principles of ALARA. CT DOSE: 314.11 mGycm FINDINGS: Lower chest: There is bibasal atelectasis/consolidation. The heart is enlarged with a [id number] pericardial effusion. Liver: The unenhanced liver is normal in size, contour, and attenuation. There is no intrahepatic biliary ductal dilatation. Gallbladder: Cholelithiasis Spleen: Normal in size and attenuation. Pancreas: Unremarkable. Adrenal glands: Unremarkable. Kidneys: The unenhanced kidneys are normal in size without hydronephrosis. There is no contour deforming renal mass lesion. No renal calculi are identified. Bowel: There is progressive small bowel dilatation with fluid-filled small bowel loops. The distal small bowel and colon are normal caliber. The findings are indicative of a high-grade small bowel obstruction. No pneumatosis is visualized. No portal venous gas is visualized. This should be noted that bowel evaluation is difficult due to the lack of intravenously administered contrast, as well as given the paucity of intra-abdominal fat. Peritoneum: There is no intraperitoneal free air or abdominal ascites. Vasculature: The abdominal aorta is normal in course and caliber. Adenopathy: None. Pelvic viscera: The bladder, and pelvic viscera are unremarkable. Skeletal structures: No destructive osseous lesions are seen. IMPRESSION: 1. Worsening high grade small bowel obstruction with progressive small bowel dilatation. 2. Persistent pericardial effusion 3. Worsening bibasilar atelectasis/consolidation. 4. Cholelithiasis Electronically signed by: Barron Alonso M.D. 08/20/2017 9:37 AM Dictated Date/Time: 08/20/2017 9:30 AM The status of this report is Signed. Draft = Not yet reviewed or approved by Radiologist. Signed = Reviewed and approved by Radiologist. <AttendingPhy>Lamine Drew D.O.</AttendingPhy> <FamilyPhy>Mike SIMMONS</ FamilyPhy> <PrimaryPhy>Mike SIMMONS</PrimaryPhy> <UnitNumber>[id number]</ UnitNumber> <VisitNumber>[id number]</VisitNumber> <PatientName>CHAUNCEY CHAU [id number]</PatientName> <DateOfBirth>1955</DateOfBirth> <Location> [facility]</Location> <ServiceDate>08/17/17</ServiceDate> <MNE>ESINDI</MNE> < OrderingPhy>Shakeel Elizabeth M.D.</OrderingPhy> <OrderingPhyMNE>f rep ord dr murry</ OrderingPhyMNE> <DictatingPhyMNE>f rep dict dr murry</DictatingPhyMNE> <CCListMNE> f rep ct mne</CCListMNE> <AdmittingPhyMNE>f pt admit dr murry</AdmittingPhyMNE> < AttendingPhyMNE>f pt attend dr murry</AttendingPhyMNE> <ConsultingPhyMNE>f pt consult dr murry</ConsultingPhyMNE> <FamilyPhyMNE>f pt fam dr murry</FamilyPhyMNE> <OtherPhyMNE>f pt other dr murry</OtherPhyMNE> < PrimaryPhyMNE>f pt prim care dr murry</PrimaryPhyMNE> <ReferringPhyMNE>f pt referring dr murry</ReferringPhyMNE> Assessment & Plan 61-year-old transgender female with well controlled HIV infection now status post acute appendicitis with rupture with cultures growing Pseudomonas aeruginosa and anaerobic gram-positive bacilli. Given patient's penicillin allergy and good clinical response, I think that she can be continued on ciprofloxacin and metronidazole which could be transitioned to oral therapy as soon as she is able to take pills. She should also start at that time back on her baseline HIV medications as she has been well controlled. Will follow.
--- NOTE | 2017-08-26 12:13 | Hospitalist Progress Note ---
Hospitalist Progress Note Date of Service Aug 26, 2017. (Madelyn Buckley ., PAGenetC) Subjective Pt evaluation today including: conversation w/ patient, physical exam, lab review, review of inpatient medication list Voiding: no voiding problems Patient sitting up in bed. NG tube in place. Ambulating around halls and using incentive spirometer. +flatus and BM. No pain. Patient denies any fever, chills, sweats, lightheadedness, dizziness, vision changes, CP, palpitations, edema, SOB, wheezing, cough, abdominal pain, nausea, vomiting, diarrhea, urinary symptoms, melena, numbness/tingling, weakness, muscle/joint pain, anxiety/depression, active bleeding, or new skin discoloration/changes. (Madelyn Buckley ., RUDDYC) Medications Current Inpatient Medications Medications (Trade) Dose Ordered Sig/Carlin Route Start Time Stop Time Status Last Admin Dose Admin Acetaminophen (Tylenol Tab) 650 mg Q4H PRN PO 08/17/17 13:45 09/16/17 13:44 08/18/17 09:17 650 MG Al Hydrox/Mg Hydrox/Simethicone (Maalox Max Susp) 15 ml Q4H PRN PO 08/17/17 13:45 09/16/17 13:44 08/18/17 21:37 15 ML Magnesium Hydroxide (Milk Of Magnesia Susp) 30 ml Q6H PRN PO 08/17/17 13:45 09/16/17 13:44 Polyethylene (Miralax Powder Packet) 17 gm DAILY PRN PO 08/17/17 15:00 09/16/17 14:59 Ondansetron HCl (Zofran Inj) 4 mg Q6H PRN IV 08/17/17 13:45 09/16/17 13:44 08/23/17 05:47 4 MG Glucose (Glucose 40% Gel) 15-30 GRAMS 15 GRAMS... UD PRN PO 08/17/17 13:45 09/16/17 13:44 Glucose (Glucose Chew Tab) 4-8 Tablets 4 Tabl... UD PRN PO 08/17/17 13:45 09/16/17 13:44 Dextrose (Dextrose 50% 50ML Syringe) 25-50ML OF 50% DW IV FOR... UD PRN IV 08/17/17 13:45 09/16/17 13:44 Glucagon (Glucagon Inj) 1 mg UD PRN SQ 08/17/17 13:45 09/16/17 13:44 Latanoprost (Xalatan Oph Soln) 1 drops HS OPB 08/17/17 21:00 09/16/17 20:59 08/25/17 20:29 1 DROPS Atorvastatin Calcium (Lipitor Tab) 40 mg QAM PO 08/18/17 09:00 09/17/17 08:59 Future Hold 08/18/17 09:03 40 MG Carvedilol (Coreg Tab) 18.75 mg BID PO 08/17/17 21:00 09/16/17 20:59 08/26/17 10:36 18.75 MG Finasteride (Proscar Tab) 5 mg DAILY PO 08/18/17 09:00 09/17/17 08:59 Future Hold 08/18/17 09:03 5 MG Non-Formulary Medication (Darunavir Ethanolate (Prezista)) 800 mg HS PO 08/17/17 21:00 09/16/17 20:59 UNV Elvitegravir/ Cobicis/Emtricit/ Tenof (Genvoya 113-399-379-10 Mg) 1 tab DAILY PO 08/18/17 09:00 09/17/17 08:59 Future Hold 08/18/17 09:17 1 TAB Morphine Sulfate (MoRPHine SULFATE INJ) 4 mg Q4H PRN IV 08/17/17 14:15 08/31/17 14:14 08/18/17 21:41 4 MG Famotidine 20 mg/ Syringe 5 ml @ 2.5 mls/min Q12H IV 08/18/17 19:00 09/17/17 18:59 08/26/17 07:04 2.5 MLS/MIN Zolpidem Tartrate (Ambien Tab) 5 mg HS PRN PO 08/18/17 22:00 09/17/17 21:59 Future Hold 08/18/17 23:16 5 MG Hydralazine HCl (HydrALAZINE INJ) 10 mg Q6H PRN IV. 08/19/17 10:30 09/18/17 10:29 08/22/17 04:13 10 MG Ciprofloxacin/ Dextrose 400 mg/ Prmx 200 ml @ 100 mls/hr Q24H IV 08/19/17 16:00 08/29/17 15:59 08/25/17 15:53 100 MLS/HR Metronidazole 500 mg/Prmx 100 ml @ 100 mls/hr Q8H IV 08/19/17 14:30 08/29/17 14:29 08/26/17 05:37 100 MLS/HR Ciprofloxacin (Consult) 1 ea UD PRN N/A 08/19/17 14:15 09/18/17 14:14 Menthol (Nice Nory) 1 nory Q1H PRN PO 08/19/17 18:45 09/18/17 18:44 08/19/17 18:53 1 NORY Albuterol/ Ipratropium (Duoneb) 3 ml Q6H PRN INH 08/20/17 12:00 09/18/17 11:59 08/20/17 19:58 3 ML Hydromorphone HCl (Dilaudid Inj) 0.5 mg Q3H PRN IV 08/20/17 13:30 09/03/17 13:29 08/24/17 19:17 0.5 MG Hydromorphone HCl (Dilaudid Inj) 1 mg Q3H PRN IV 08/20/17 13:30 09/03/17 13:29 08/25/17 15:54 1 MG Amlodipine Besylate (Norvasc Tab) 10 mg QAM PO 08/23/17 09:00 09/22/17 08:59 08/26/17 10:36 10 MG Dextrose 1,000 ml @ 0 mls/hr Q0M PRN IV 08/23/17 16:00 09/22/17 15:59 Miscellaneous Information (Pharmacy Tpn/ Ppn Consult Active) 1 UD PRN N/A 08/23/17 07:00 09/22/17 06:59 Insulin Aspart (novoLOG ASPART) SLIDING SCALE If C... Q6 SC 08/24/17 00:00 09/21/17 17:14 08/26/17 05:48 4 UNITS Metoclopramide HCl (Reglan Inj) 10 mg Q6 IV. 08/24/17 06:30 09/23/17 06:29 08/26/17 05:35 10 MG Senna (Senokot Syrup) 8.8 mg BID PO 08/24/17 09:00 09/23/17 08:59 08/26/17 10:37 8.8 MG Heparin Sodium (Porcine) (Heparin 10 Unit/ ml 5 ml Flush) 5 ml PRN PRN FLUSH 08/25/17 02:15 09/24/17 02:14 08/26/17 07:04 5 ML Heparin Sodium (Porcine) (Heparin Sq 5000 Unit/0.5ml) 5,000 unit Q12 SC 08/25/17 09:00 09/24/17 08:59 08/26/17 10:33 5,000 UNIT Nutrition (Parenteral) 0 ml @ 0 mls/hr TODAY@1600 IV 08/25/17 16:00 08/26/17 15:59 08/25/17 15:54 0 MLS/HR (Madelyn Buckley ., PA-C) Objective Vital Signs Date Time Temp Pulse Resp B/P (MAP) Pulse Ox O2 Delivery O2 Flow Rate FiO2 08/26/17 08:30 Room Air 08/26/17 07:28 36.9 64 19 177/83 (114) 96 Room Air 08/25/17 23:05 36.7 65 16 161/77 (105) 95 Room Air 08/25/17 20:30 Room Air 08/25/17 15:45 36.3 95 18 136/90 (105) 94 Room Air (Madelyn Buckley ., PA-C) Physical Exam General Appearance: no apparent distress Eyes: normal inspection, PERRL ENT: hearing grossly normal, + pertinent finding (NG tube ) Neck: supple Respiratory/Chest: lungs clear, no respiratory distress, no accessory muscle use Cardiovascular: regular rate, rhythm Abdomen: normal bowel sounds, non tender, + distended, + pertinent finding ( incision site bandage C/D/I ) Extremities: no pedal edema, no calf tenderness Neurologic/Psychiatric: alert, normal mood/affect, oriented x 3 Skin: normal color, warm/dry, no rash (Madelyn Buckley ., PA-C) Laboratory Results Last 24 Hours Test 08/25/17 18:36 08/25/17 23:58 08/26/17 05:29 08/26/17 05:35 Bedside Glucose 212 mg/dl 277 mg/dl 238 mg/dl Sodium Level 144 mmol/L Potassium Level 3.5 mmol/L Chloride Level 118 mmol/L Carbon Dioxide Level 20 mmol/L Anion Gap 6.0 mmol/L Blood Urea Nitrogen 75 mg/dl Creatinine 3.57 mg/dl Est Creatinine Clear Calc Drug Dose 17.7 ml/min Estimated GFR () 19.8 Estimated GFR (Non- 17.1 BUN/Creatinine Ratio 20.9 Random Glucose 242 mg/dl Calcium Level 7.6 mg/dl Phosphorus Level 2.7 mg/dl Magnesium Level 2.2 mg/dl (Madelyn Buckley, PAGenetC) Assessment and Plan 61 y/o transgender female with a history of HTN, HLD, sick sinus syndrome s/p pacemaker 04/26/17, DM II, CKD stage III, anemia of chronic disease, and HIV who presented to the ED on 08/16 from [facility] with abdominal pain, nausea and vomiting. Pt afebrile, VSS on arrival. O2 sat did drop to 85%, placed on 2L NC. CXR with possible left base consolidation vs atelectasis. CT abdomen/ pelvis with distal small bowel obstructive change and inflammatory change of the appendix with associated appendicolith. Creatinine 2.50, elevated above baseline. POC lactic acid 2.15. LFTs elevated. s/p ex-lap on 08/[address] Elizabeth for SBO, finding ruptured appendicitis with abscess formation: - NG tube placed on 08/19- removed on 08/22 and diet advanced to clears- did not tolerated and NG replaced on 08/23- placed PICC line and started TPN on 08/24 - Treated w/ IVF @ 100 ml/hr while NPO- ECHO from 04/2017 w/ preserved EF - Morphine 4 mg IV q4h, IV Dilaudid PRN for pain management - Abdominal cultures growing Pseudomonas/Aerobic gram + bacilli- sensitives reviewed- IV Cipro + Flagyl- started on 08/19- ID following - General surgery consulted, appreciate recommendations- surgical management as per surgery - GI consulted, appreciate recommendations Acute respiratory and metabolic acidosis secondary to LEEROY- RESOLVED: - ICU due to postop anesthesia complications/renal failure- STABLE- transferred to tele on 08/21 and med/surg on 08/22 - DuoNebs QID and PRN - CXR on 08/23- PNA vs atelectasis -- Likely atelectasis due to no cough/sputum production, fever/chills, or WBC - however, IV Cipro for coverage as above -- Encourage incentive spirometer, ambulation, OOB in chair QS - Nephrology following LEEROY on CKD stage II, likely secondary to ATN- baseline story reader 2.0-2.5- story reader 3.57 today, anemia of chronic disease- baseline hgb 10: - Avoid nephrotoxic agents and renally dose medications as appropriate - Follow PRP and UO - Nephrology consulted, appreciate recommendations- no need for acute HD at this time HTN, HLD, sick sinus syndrome s/p pacemaker 04/26/17: - Lipitor 40 mg PO qd held until tolerating full PO intake - Continue Coreg 18.75 mg PO BID and Norvasc 10 mg daily - IV Hydralazine PRN T2DM- last HgbA1c 5.0%: - Hold Glipizide while inpatient - Hyperglycemia- start Lantus 5 u daily and adjust PRN - BSG ACHS and ISS HIV: Continue Genvoya 1 tab PO qd and Prezista 800 mg PO HS once tolerating full PO intake BPH: Hold Proscar 5 mg PO qd until tolerating full PO intake Glaucoma: Continue Latanoprost drops GI prophylaxis: IV Pepcid DVT prophylaxis: Heparin SQ BID Code Status: LEVEL I, FULL Dispo: From [facility] (Madelyn Buckley, RUDDYC) Supervising Note Dr. Benito I performed a history and physical examination on the patient. I reviewed above note and agree with it. I discussed plan with APC and patient. During my face to face encounter with the patient, I answered all of the patient's questions. (Derek Benito M.D.)
[2017-08-26] MEDS ORDERED: INSULIN GLARGINE SOLOSTAR 100 UNITS/ML 3 ML PEN SC ONE (12:30)
[2017-08-26 12:58] VITALS: BMI 24.1
[2017-08-26 13:10] VITALS: BP 156/75
[2017-08-26] MEDS: ATORVASTATIN 40 MG TAB PO SCH (13:56)
[2017-08-26] MEDS: ELVITEGRAVIR COBICISTAT EMTRIC PO SCH (13:56)
[2017-08-26] MEDS: FINASTERIDE 5 MG TAB PO SCH (13:57)
[2017-08-26] MEDS: CIPROFLOXACIN / D5W 400 MG in PREMIXED IN D5W 200 ML IV SCH (15:58)
[2017-08-26] MEDS ORDERED: CUSTOM CENTRAL PN 1 BAG IV SCH (16:00)
[2017-08-26 16:30] VITALS: BP 181/85; PULSE 88; TEMP 36.6; O2SAT 98
[2017-08-26] MEDS: HydrALAZINE HCL 20 MG/ML VIAL IV. PRN (16:39)
[2017-08-26] MEDS: LATANOPROST 0.005% OP SOLN 2.5 ML BTL OPB SCH (21:04)
[2017-08-26 23:25] VITALS: BP 165/86; PULSE 80; TEMP 36.5; O2SAT 96
[2017-08-27] MEDS: INSULIN ASPART 100 UNITS/ML 3 ML PEN SC SCH ×4 (00:11→18:24)
[2017-08-27] MEDS: METOCLOPRAMIDE HCL INJ 5 MG/ML 2 ML VIAL IV. SCH ×4 (00:12→18:13)
[2017-08-27] MEDS: METRONIDAZOLE / NSS 500 MG in PREMIXED NSS 100 ML IV SCH ×3 (05:32→22:00)
[2017-08-27 06:06] LABS: CALCIUM 7.6 mg/dl (8.5-10.1); CREATININE 3.24 mg/dl (0.60-1.40); POTASSIUM 3.4 mmol/L (3.5-5.1)
[2017-08-27] MEDS: FAMOTIDINE IV INJ 20 MG in SYRINGE 3 ML IV SCH ×2 (06:47→18:41)
[2017-08-27 07:26] VITALS: BP 181/88; PULSE 80; TEMP 36.8; O2SAT 97
[2017-08-27 08:20] LABS: PHOSPHORUS 3.1 mg/dl (2.5-4.9)
[2017-08-27] MEDS: AMLODIPINE BESYLATE 5 MG TAB PO SCH (08:26)
[2017-08-27] MEDS: CARVEDILOL 12.5 MG TAB PO SCH ×2 (08:26→21:56)
[2017-08-27] MEDS: HEPARIN SOD 5000 UNIT/0.5 ML CARP SC SCH ×2 (08:37→21:49)
--- NOTE | 2017-08-27 08:37 | Surgery Progress Note ---
Surgery Progress Note Date of Service Aug 27, 2017. Subjective minimal NG output w/ clamping, good uo, much less edema +flatus , has bowel sounds, still distended he is hungry Objective Vital Signs: Date Time Temp Pulse Resp B/P (MAP) Pulse Ox O2 Delivery O2 Flow Rate FiO2 08/27/17 07:26 36.8 80 19 181/88 (119) 97 Room Air 08/27/17 00:15 Room Air 08/26/17 23:25 36.5 80 17 165/86 (112) 96 Room Air 08/26/17 16:30 36.6 88 20 181/85 (117) 98 Room Air 08/26/17 15:40 Room Air 08/26/17 13:10 156/75 (102) 08/26/17 08:30 Room Air General Appearance: no apparent distress Respiratory/Chest: no respiratory distress Abdomen: + distended (has bowel sounds) Incision(s): intact Laboratory Results: Results Past 24 Hours Test 08/26/17 12:35 08/26/17 17:55 08/27/17 00:04 08/27/17 05:26 Range/Units Bedside Glucose 365 246 155 70-99 mg/dl Sodium Level 145 136-145 mmol/L Potassium Level 3.4 3.5-5.1 mmol/L Chloride Level 119 98-107 mmol/L Carbon Dioxide Level 18 21-32 mmol/L Anion Gap 8.0 3-11 mmol/L Blood Urea Nitrogen 69 7-18 mg/dl Creatinine 3.24 0.60-1.40 mg/dl Est Creatinine Clear Calc Drug Dose 19.6 ml/min Estimated GFR () 22.3 Estimated GFR (Non- 19.3 BUN/Creatinine Ratio 21.3 10-20 Random Glucose 194 70-99 mg/dl Calcium Level 7.6 8.5-10.1 mg/dl Phosphorus Level 3.1 2.5-4.9 mg/dl Magnesium Level 2.0 1.8-2.4 mg/dl Test 08/27/17 05:33 Range/Units Bedside Glucose 199 70-99 mg/dl Assessment & Plan 08/27/17- some concern for distention and mild ileus but minimal NG output and some bowel function. Tpn helping with edema/protein status. will try to d/c NG and limit po today- very slowly adv diet. may need NG back in if vomits. Dr Wren covering over weekend 08/26/17- some slow improvement- not yet convinced GI activity ready for removal of NG- cont Tpn, try sips of clears w/ NG clamped. increase mobility if possible 08/25/17- intraop cult- pseudomonas- sens to Cipro- discussed with Dr Darnell- cont same for now- ID will see as pt is HIV + 08/25/17- will order Tpn- central w/ picc line, d/c velazquez, leave drain. cont NG as he is still distended. overall some progress but expected to be slow. coughing up loose secretions- cont atbx 08/24/17- ileus not unexpected- ppn ordered- not started- pharmacy notified. Will probably benefit from picc line for addnl calories cont NG, try some Reglan. cont wound care, IV atbx 08/23/17- pt s/p laparotomy , lysis of adhesions, drainage abd abscess appendectomy- at risk for ileus- vomited- check film, clears only if vomits again will need NG- order periph tpn- may need Picc line ambulate 08/20/17- GI evaluation noted- on IV atbx- distention of abd same or worse will try to give some contrast via NG and rescan pt- no IV contrast considering abd exploration- will also discuss with GI 08/19/17- Persistent distention- ? gastric, ? bowel- atypical for mechanical sbo - will have NG placed, check labs, will possibly need contrast study but will not tolerate po- ask GI to see . may come explor lap if does not resolve 08/18/17- will try full liquids- nephrology checking on pt will cont to follow progress 08/26/17- some slow improvement- not yet convinced GI activity ready for removal of NG- cont Tpn, try sips of clears w/ NG clamped. increase mobility if possible 08/25/17- intraop cult- pseudomonas- sens to Cipro- discussed with Dr Darnell- cont same for now- ID will see as pt is HIV + 08/25/17- will order Tpn- central w/ picc line, d/c velazquez, leave drain. cont NG as he is still distended. overall some progress but expected to be slow. coughing up loose secretions- cont atbx 08/24/17- ileus not unexpected- ppn ordered- not started- pharmacy notified. Will probably benefit from picc line for addnl calories cont NG, try some Reglan. cont wound care, IV atbx 08/23/17- pt s/p laparotomy , lysis of adhesions, drainage abd abscess appendectomy- at risk for ileus- vomited- check film, clears only if vomits again will need NG- order periph tpn- may need Picc line ambulate 08/20/17- GI evaluation noted- on IV atbx- distention of abd same or worse will try to give some contrast via NG and rescan pt- no IV contrast considering abd exploration- will also discuss with GI 08/19/17- Persistent distention- ? gastric, ? bowel- atypical for mechanical sbo - will have NG placed, check labs, will possibly need contrast study but will not tolerate po- ask GI to see . may come explor lap if does not resolve 08/18/17- will try full liquids- nephrology checking on pt will cont to follow progress
[2017-08-27] MEDS: SENNA 8.8 MG/5 ML UDP PO SCH ×2 (08:38→21:00)
--- NOTE | 2017-08-27 08:56 | Nephrology Progress Note ---
Nephrology Progress Note Date of Service Aug 27, 2017. Chief Complaint Acute on CKD Subjective Stacey was seen & examined in her hospital room this morning. NG tube was removed yesterday. She is tolerating a liquid diet. Stacey reports that she is passing flatus and voiding without difficulty. She voices no new medical concerns. Review of Systems Constitutional: No fever Cardiovascular: No chest pain Respiratory: No dyspnea at rest Abdomen: No pain, No vomiting Extremities: No leg edema A complete review of systems was performed. Pertinent positives are noted above. All other systems are negative. Vital Signs Last 8 Hrs Date Time Temp Pulse Resp B/P (MAP) Pulse Ox O2 Delivery O2 Flow Rate FiO2 08/27/17 07:26 36.8 80 19 181/88 (119) 97 Room Air Last Recorded Weight Weight (Kilograms): 63.600 Physical Exam General Appearance: no apparent distress Head: normocephalic, atraumatic Eyes: PERRL, EOMI Neck: no adenopathy Respiratory/Chest: lungs clear, no respiratory distress Cardiovascular: regular rate, rhythm Abdomen/GI: non tender (no active bowel sounds), soft Extremities/Musculoskelatal: no calf tenderness, no pedal edema Neurologic/Psych: alert, oriented x 3 Family History Diabetes mellitus Hypertension Social History Smokeless Tobacco Use: No Alcohol Use: none Drug Use: none Marital Status: single Housing Status: other ([facility]) Occupation: unemployed Laboratory Results Past 24 Hours 08/27/17 05:26 Test 08/26/17 12:35 08/26/17 17:55 08/27/17 00:04 08/27/17 05:26 Bedside Glucose 365 mg/dl (70-99) 246 mg/dl (70-99) 155 mg/dl (70-99) Anion Gap 8.0 mmol/L (3-11) Est Creatinine Clear Calc Drug Dose 19.6 ml/min Estimated GFR () 22.3 Estimated GFR (Non- 19.3 BUN/Creatinine Ratio 21.3 (10-20) Calcium Level 7.6 mg/dl (8.5-10.1) Phosphorus Level 3.1 mg/dl (2.5-4.9) Magnesium Level 2.0 mg/dl (1.8-2.4) Test 08/27/17 05:33 Bedside Glucose 199 mg/dl (70-99) Allergies Coded Allergies: Penicillins (Verified Allergy, Intermediate, UNKNOWN, 08/17/17) Medications Current Inpatient Medications Medications (Trade) Dose Ordered Sig/Carlin Route Start Time Stop Time Status Last Admin Dose Admin Acetaminophen (Tylenol Tab) 650 mg Q4H PRN PO 08/17/17 13:45 09/16/17 13:44 08/18/17 09:17 650 MG Al Hydrox/Mg Hydrox/Simethicone (Maalox Max Susp) 15 ml Q4H PRN PO 08/17/17 13:45 09/16/17 13:44 08/18/17 21:37 15 ML Magnesium Hydroxide (Milk Of Magnesia Susp) 30 ml Q6H PRN PO 08/17/17 13:45 09/16/17 13:44 Polyethylene (Miralax Powder Packet) 17 gm DAILY PRN PO 08/17/17 15:00 09/16/17 14:59 Ondansetron HCl (Zofran Inj) 4 mg Q6H PRN IV 08/17/17 13:45 09/16/17 13:44 08/23/17 05:47 4 MG Glucose (Glucose 40% Gel) 15-30 GRAMS 15 GRAMS... UD PRN PO 08/17/17 13:45 09/16/17 13:44 Glucose (Glucose Chew Tab) 4-8 Tablets 4 Tabl... UD PRN PO 08/17/17 13:45 09/16/17 13:44 Dextrose (Dextrose 50% 50ML Syringe) 25-50ML OF 50% DW IV FOR... UD PRN IV 08/17/17 13:45 09/16/17 13:44 Glucagon (Glucagon Inj) 1 mg UD PRN SQ 08/17/17 13:45 09/16/17 13:44 Latanoprost (Xalatan Oph Soln) 1 drops HS OPB 08/17/17 21:00 09/16/17 20:59 08/26/17 21:04 1 DROPS Atorvastatin Calcium (Lipitor Tab) 40 mg QAM PO 08/18/17 09:00 09/17/17 08:59 Future Hold 08/18/17 09:03 40 MG Carvedilol (Coreg Tab) 18.75 mg BID PO 08/17/17 21:00 09/16/17 20:59 08/27/17 08:26 18.75 MG Finasteride (Proscar Tab) 5 mg DAILY PO 08/18/17 09:00 09/17/17 08:59 Future Hold 08/18/17 09:03 5 MG Non-Formulary Medication (Darunavir Ethanolate (Prezista)) 800 mg HS PO 08/17/17 21:00 09/16/17 20:59 UNV Elvitegravir/ Cobicis/Emtricit/ Tenof (Genvoya 138-830-115-10 Mg) 1 tab DAILY PO 08/18/17 09:00 09/17/17 08:59 Future Hold 08/18/17 09:17 1 TAB Morphine Sulfate (MoRPHine SULFATE INJ) 4 mg Q4H PRN IV 08/17/17 14:15 08/31/17 14:14 08/18/17 21:41 4 MG Famotidine 20 mg/ Syringe 5 ml @ 2.5 mls/min Q12H IV 08/18/17 19:00 09/17/17 18:59 08/27/17 06:47 2.5 MLS/MIN Zolpidem Tartrate (Ambien Tab) 5 mg HS PRN PO 08/18/17 22:00 09/17/17 21:59 Future Hold 08/18/17 23:16 5 MG Hydralazine HCl (HydrALAZINE INJ) 10 mg Q6H PRN IV. 08/19/17 10:30 09/18/17 10:29 08/26/17 16:39 10 MG Ciprofloxacin/ Dextrose 400 mg/ Prmx 200 ml @ 100 mls/hr Q24H IV 08/19/17 16:00 08/29/17 15:59 08/26/17 15:58 100 MLS/HR Metronidazole 500 mg/Prmx 100 ml @ 100 mls/hr Q8H IV 08/19/17 14:30 08/29/17 14:29 08/27/17 05:32 100 MLS/HR Ciprofloxacin (Consult) 1 ea UD PRN N/A 08/19/17 14:15 09/18/17 14:14 Menthol (Nice Nory) 1 nory Q1H PRN PO 08/19/17 18:45 09/18/17 18:44 08/19/17 18:53 1 NORY Albuterol/ Ipratropium (Duoneb) 3 ml Q6H PRN INH 08/20/17 12:00 09/18/17 11:59 08/20/17 19:58 3 ML Hydromorphone HCl (Dilaudid Inj) 0.5 mg Q3H PRN IV 08/20/17 13:30 09/03/17 13:29 08/24/17 19:17 0.5 MG Hydromorphone HCl (Dilaudid Inj) 1 mg Q3H PRN IV 08/20/17 13:30 09/03/17 13:29 08/25/17 15:54 1 MG Amlodipine Besylate (Norvasc Tab) 10 mg QAM PO 08/23/17 09:00 09/22/17 08:59 08/27/17 08:26 10 MG Dextrose 1,000 ml @ 0 mls/hr Q0M PRN IV 08/23/17 16:00 09/22/17 15:59 Miscellaneous Information (Pharmacy Tpn/ Ppn Consult Active) 1 ea UD PRN N/A 08/23/17 07:00 09/22/17 06:59 Insulin Aspart (novoLOG ASPART) SLIDING SCALE If C... Q6 SC 08/24/17 00:00 09/21/17 17:14 08/27/17 05:47 4 UNITS Metoclopramide HCl (Reglan Inj) 10 mg Q6 IV. 08/24/17 06:30 09/23/17 06:29 08/27/17 05:31 10 MG Senna (Senokot Syrup) 8.8 mg BID PO 08/24/17 09:00 09/23/17 08:59 08/27/17 08:38 8.8 MG Heparin Sodium (Porcine) (Heparin 10 Unit/ ml 5 ml Flush) 5 ml PRN PRN FLUSH 08/25/17 02:15 09/24/17 02:14 08/27/17 06:47 5 ML Heparin Sodium (Porcine) (Heparin Sq 5000 Unit/0.5ml) 5,000 unit Q12 SC 08/25/17 09:00 09/24/17 08:59 08/27/17 08:37 5,000 UNIT Insulin Glargine (Lantus Solostar Pen) 5 units DAILY SC 08/27/17 09:00 09/26/17 08:59 08/27/17 08:37 5 UNITS Nutrition (Parenteral) 0 ml @ 0 mls/hr TODAY@1600 IV 08/26/17 16:00 08/27/17 15:59 08/26/17 15:58 0 MLS/HR Impression (1) Acute kidney injury (2) CKD (chronic kidney disease), stage III (3) SBO (small bowel obstruction) (4) Proteinuria (5) Anemia (6) HTN (hypertension) (7) HIV (human immunodeficiency virus infection) Stacey has a past medical history significant for HTN, CKD and HIV. She was admitted to the hospital with SBO. She has stage III CKD w/ baseline creatinine 2.0 - 2.5. LEEROY was most likely ATN related to dehydration and small- bowel obstruction. CT abdomen & pelvis was negative for hydronephrosis. CKD is likely related to hypertensive/diabetic nephropathy but possibility for intrinsic glomerular disease such as FSGS with HIV or nephropathy from anti- retroviral medication remains. Patient is s/p exploratory laparotomy 08/20/2017: abdominal abscesses from ruptured appendix. Recommendations ACUTE KIDNEY INJURY: -- Creatinine peaked at 5.3. Patient remains within the recovery phase of ATN. Creatinine improved to 3.2 today. Patient is nonoliguric -- Patient remains on PPN. Will monitor PRP. No acute indication for HD at this time CHRONIC KIDNEY DISEASE: -- Baseline creatinine has been 2.0 - 2.5 METABOLIC ACIDOSIS: -- High anion gap acidosis and hypernatremia have resolved. Will monitor ID: -- Peritoneal fluid culture w/ Pseudomonas sensitive to Cipro -- Awaiting ID input
[2017-08-27] MEDS ORDERED: INSULIN GLARGINE SOLOSTAR 100 UNITS/ML 3 ML PEN SC SCH (09:00)
[2017-08-27] MEDS ORDERED: INSULIN GLARGINE SOLOSTAR 100 UNITS/ML 3 ML PEN SC ONE (10:09)
--- NOTE | 2017-08-27 12:26 | Hospitalist Progress Note ---
Hospitalist Progress Note Date of Service Aug 27, 2017. (Madelyn Buckley ., PAMandy) Subjective Pt evaluation today including: conversation w/ patient, physical exam, lab review, review of inpatient medication list Voiding: no voiding problems Patient feeling well this AM. Dr. Elizabeth removed NG tube. Patient in better spirits because of this. +flatus and BMs. No pain. Continue ambulating. Patient denies any fever, chills, sweats, lightheadedness, dizziness, vision changes, CP, palpitations, edema, SOB, wheezing, cough, abdominal pain, nausea, vomiting, diarrhea, urinary symptoms, melena, numbness/tingling, weakness, muscle/joint pain, anxiety/depression, active bleeding, or new skin discoloration/changes. (Madelyn Buckley ., RUDDYC) Medications Current Inpatient Medications Medications (Trade) Dose Ordered Sig/Carlin Route Start Time Stop Time Status Last Admin Dose Admin Acetaminophen (Tylenol Tab) 650 mg Q4H PRN PO 08/17/17 13:45 09/16/17 13:44 08/18/17 09:17 650 MG Al Hydrox/Mg Hydrox/Simethicone (Maalox Max Susp) 15 ml Q4H PRN PO 08/17/17 13:45 09/16/17 13:44 08/18/17 21:37 15 ML Magnesium Hydroxide (Milk Of Magnesia Susp) 30 ml Q6H PRN PO 08/17/17 13:45 09/16/17 13:44 Polyethylene (Miralax Powder Packet) 17 gm DAILY PRN PO 08/17/17 15:00 09/16/17 14:59 Ondansetron HCl (Zofran Inj) 4 mg Q6H PRN IV 08/17/17 13:45 09/16/17 13:44 08/23/17 05:47 4 MG Glucose (Glucose 40% Gel) 15-30 GRAMS 15 GRAMS... UD PRN PO 08/17/17 13:45 09/16/17 13:44 Glucose (Glucose Chew Tab) 4-8 Tablets 4 Tabl... UD PRN PO 08/17/17 13:45 09/16/17 13:44 Dextrose (Dextrose 50% 50ML Syringe) 25-50ML OF 50% DW IV FOR... UD PRN IV 08/17/17 13:45 09/16/17 13:44 Glucagon (Glucagon Inj) 1 mg UD PRN SQ 08/17/17 13:45 09/16/17 13:44 Latanoprost (Xalatan Oph Soln) 1 drops HS OPB 08/17/17 21:00 09/16/17 20:59 08/26/17 21:04 1 DROPS Atorvastatin Calcium (Lipitor Tab) 40 mg QAM PO 08/18/17 09:00 09/17/17 08:59 Future Hold 08/18/17 09:03 40 MG Carvedilol (Coreg Tab) 18.75 mg BID PO 08/17/17 21:00 09/16/17 20:59 08/27/17 08:26 18.75 MG Finasteride (Proscar Tab) 5 mg DAILY PO 08/18/17 09:00 09/17/17 08:59 Future Hold 08/18/17 09:03 5 MG Non-Formulary Medication (Darunavir Ethanolate (Prezista)) 800 mg HS PO 08/17/17 21:00 09/16/17 20:59 UNV Elvitegravir/ Cobicis/Emtricit/ Tenof (Genvoya 149-011-389-10 Mg) 1 tab DAILY PO 08/18/17 09:00 09/17/17 08:59 Future Hold 08/18/17 09:17 1 TAB Morphine Sulfate (MoRPHine SULFATE INJ) 4 mg Q4H PRN IV 08/17/17 14:15 08/31/17 14:14 08/18/17 21:41 4 MG Famotidine 20 mg/ Syringe 5 ml @ 2.5 mls/min Q12H IV 08/18/17 19:00 09/17/17 18:59 08/27/17 06:47 2.5 MLS/MIN Zolpidem Tartrate (Ambien Tab) 5 mg HS PRN PO 08/18/17 22:00 09/17/17 21:59 Future Hold 08/18/17 23:16 5 MG Hydralazine HCl (HydrALAZINE INJ) 10 mg Q6H PRN IV. 08/19/17 10:30 09/18/17 10:29 08/26/17 16:39 10 MG Ciprofloxacin/ Dextrose 400 mg/ Prmx 200 ml @ 100 mls/hr Q24H IV 08/19/17 16:00 08/29/17 15:59 08/26/17 15:58 100 MLS/HR Metronidazole 500 mg/Prmx 100 ml @ 100 mls/hr Q8H IV 08/19/17 14:30 08/29/17 14:29 08/27/17 05:32 100 MLS/HR Ciprofloxacin (Consult) 1 ea UD PRN N/A 08/19/17 14:15 09/18/17 14:14 Menthol (Nice Nory) 1 nory Q1H PRN PO 08/19/17 18:45 09/18/17 18:44 08/19/17 18:53 1 NORY Albuterol/ Ipratropium (Duoneb) 3 ml Q6H PRN INH 08/20/17 12:00 09/18/17 11:59 08/20/17 19:58 3 ML Hydromorphone HCl (Dilaudid Inj) 0.5 mg Q3H PRN IV 08/20/17 13:30 09/03/17 13:29 08/24/17 19:17 0.5 MG Hydromorphone HCl (Dilaudid Inj) 1 mg Q3H PRN IV 08/20/17 13:30 09/03/17 13:29 08/25/17 15:54 1 MG Amlodipine Besylate (Norvasc Tab) 10 mg QAM PO 08/23/17 09:00 09/22/17 08:59 08/27/17 08:26 10 MG Dextrose 1,000 ml @ 0 mls/hr Q0M PRN IV 08/23/17 16:00 09/22/17 15:59 Miscellaneous Information (Pharmacy Tpn/ Ppn Consult Active) 1 ea UD PRN N/A 08/23/17 07:00 09/22/17 06:59 Insulin Aspart (novoLOG ASPART) SLIDING SCALE If C... Q6 SC 08/24/17 00:00 09/21/17 17:14 08/27/17 05:47 4 UNITS Metoclopramide HCl (Reglan Inj) 10 mg Q6 IV. 08/24/17 06:30 09/23/17 06:29 08/27/17 05:31 10 MG Senna (Senokot Syrup) 8.8 mg BID PO 08/24/17 09:00 09/23/17 08:59 08/27/17 08:38 8.8 MG Heparin Sodium (Porcine) (Heparin 10 Unit/ ml 5 ml Flush) 5 ml PRN PRN FLUSH 08/25/17 02:15 09/24/17 02:14 08/27/17 06:47 5 ML Heparin Sodium (Porcine) (Heparin Sq 5000 Unit/0.5ml) 5,000 unit Q12 SC 08/25/17 09:00 09/24/17 08:59 08/27/17 08:37 5,000 UNIT Nutrition (Parenteral) 0 ml @ 0 mls/hr TODAY@1600 IV 08/26/17 16:00 08/27/17 15:59 08/26/17 15:58 0 MLS/HR Nutrition (Parenteral) 0 ml @ 0 mls/hr TODAY@1600 IV 08/27/17 16:00 08/28/17 15:59 Insulin Glargine (Lantus Solostar Pen) 8 units QAM SC 08/28/17 09:00 09/27/17 08:59 (Madelyn Buckley, PA-C) Objective Vital Signs Date Time Temp Pulse Resp B/P (MAP) Pulse Ox O2 Delivery O2 Flow Rate FiO2 08/27/17 08:20 Room Air 08/27/17 07:26 36.8 80 19 181/88 (119) 97 Room Air 08/27/17 00:15 Room Air 08/26/17 23:25 36.5 80 17 165/86 (112) 96 Room Air 08/26/17 16:30 36.6 88 20 181/85 (117) 98 Room Air 08/26/17 15:40 Room Air 08/26/17 13:10 156/75 (102) (Madelyn Buckley, PA-C) Physical Exam General Appearance: no apparent distress Eyes: normal inspection, PERRL ENT: hearing grossly normal Neck: supple Respiratory/Chest: lungs clear, no respiratory distress, no accessory muscle use Cardiovascular: regular rate, rhythm Abdomen: normal bowel sounds, non tender, + distended, + pertinent finding ( incision site C/D/I; JAKOB drain w/ no output ) Extremities: no pedal edema, no calf tenderness Neurologic/Psychiatric: alert, normal mood/affect, oriented x 3 Skin: normal color, warm/dry, no rash (Madelyn Buckley ., PA-C) Laboratory Results Last 24 Hours Test 08/26/17 12:35 08/26/17 17:55 08/27/17 00:04 08/27/17 05:26 Bedside Glucose 365 mg/dl 246 mg/dl 155 mg/dl Sodium Level 145 mmol/L Potassium Level 3.4 mmol/L Chloride Level 119 mmol/L Carbon Dioxide Level 18 mmol/L Anion Gap 8.0 mmol/L Blood Urea Nitrogen 69 mg/dl Creatinine 3.24 mg/dl Est Creatinine Clear Calc Drug Dose 19.6 ml/min Estimated GFR () 22.3 Estimated GFR (Non- 19.3 BUN/Creatinine Ratio 21.3 Random Glucose 194 mg/dl Calcium Level 7.6 mg/dl Phosphorus Level 3.1 mg/dl Magnesium Level 2.0 mg/dl Test 08/27/17 05:33 Bedside Glucose 199 mg/dl (Madelyn Buckley ., PA-C) Assessment and Plan 61 y/o transgender female with a history of HTN, HLD, sick sinus syndrome s/p pacemaker 04/26/17, DM II, CKD stage III, anemia of chronic disease, and HIV who presented to the ED on 08/16 from [facility] with abdominal pain, nausea and vomiting. Pt afebrile, VSS on arrival. O2 sat did drop to 85%, placed on 2L NC. CXR with possible left base consolidation vs atelectasis. CT abdomen/ pelvis with distal small bowel obstructive change and inflammatory change of the appendix with associated appendicolith. Creatinine 2.50, elevated above baseline. POC lactic acid 2.15. LFTs elevated. s/p ex-lap on 08/[address] Elizabeth for SBO, finding ruptured appendicitis with abscess formation: - NG tube placed on 08/19- removed on 08/22 and diet advanced to clears- did not tolerated and NG replaced on 08/23- placed PICC line and started TPN on 08/24 -- Removed NG tube today, SLOWLY advancing diet - Treated w/ IVF @ 100 ml/hr while NPO- ECHO from 04/2017 w/ preserved EF - Morphine 4 mg IV q4h, IV Dilaudid PRN for pain management - Abdominal cultures growing Pseudomonas/anaerobic gram + bacilli- sensitives reviewed- IV Cipro + Flagyl- started on 08/19- ID following - General surgery consulted, appreciate recommendations- surgical management as per surgery - GI consulted, appreciate recommendations Acute respiratory and metabolic acidosis secondary to LEEROY- RESOLVED: - ICU due to postop anesthesia complications/renal failure- STABLE- transferred to tele on 08/21 and med/surg on 08/22 - DuoNebs QID and PRN - CXR on 08/23- PNA vs atelectasis -- Likely atelectasis due to no cough/sputum production, fever/chills, or WBC - however, IV Cipro for coverage as above -- Encourage incentive spirometer, ambulation, OOB in chair QS - Nephrology following LEEROY on CKD stage II, likely secondary to ATN- baseline mechanical 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 engineer 2.0-2.5- mechanical research engineer 3.24 today, anemia of chronic disease- baseline hgb 10: - Avoid nephrotoxic agents and renally dose medications as appropriate - Follow PRP and UO - Nephrology consulted, appreciate recommendations- no need for acute HD at this time HTN, HLD, sick sinus syndrome s/p pacemaker 04/26/17: - Lipitor 40 mg PO qd held until tolerating full PO intake - Continue Coreg 18.75 mg PO BID and Norvasc 10 mg daily - IV Hydralazine PRN T2DM- last HgbA1c 5.0%: - Hold Glipizide while inpatient - Hyperglycemia- Lantus 8 u daily and adjust PRN - BSG ACHS and ISS HIV: Continue Genvoya 1 tab PO qd and Prezista 800 mg PO HS once tolerating full PO intake BPH: Hold Proscar 5 mg PO qd until tolerating full PO intake Glaucoma: Continue Latanoprost drops GI prophylaxis: IV Pepcid DVT prophylaxis: Heparin SQ BID Code Status: LEVEL I, FULL Dispo: From [facility] (Madelyn Buckley PA-C) Supervising Note Dr. Benito I performed a history and physical examination on the patient. I reviewed above note and agree with it. I discussed plan with APC and patient. During my face to face encounter with the patient, I answered all of the patient's questions. (Derek Benito M.D.)
[2017-08-27 13:07] VITALS: BP 161/80; PULSE 60
[2017-08-27] MEDS: ACETAMINOPHEN 325 MG TAB PO PRN ×2 (14:06→22:22)
[2017-08-27 15:00] VITALS: BP 163/76; PULSE 64; TEMP 36.6; O2SAT 98
[2017-08-27] MEDS: CIPROFLOXACIN / D5W 400 MG in PREMIXED IN D5W 200 ML IV SCH (15:42)
[2017-08-27] MEDS ORDERED: CUSTOM CENTRAL PN 1 BAG IV SCH (16:00)
--- NOTE | 2017-08-27 21:11 | Infectious Disease Progress Nt ---
Progress Note Date of Service Aug 27, 2017. Subjective Pt evaluation today including: conversation w/ patient, physical exam, chart review, lab review, review of studies, conversation w/ senior financial consultant, review of inpatient medication list Patient more comfortable today. Abdominal pain improved. Remains afebrile. All Other Systems: Reviewed and Negative Medications Current Inpatient Medications Medications (Trade) Dose Ordered Sig/Carlin Route Start Time Stop Time Status Last Admin Dose Admin Acetaminophen (Tylenol Tab) 650 mg Q4H PRN PO 08/17/17 13:45 09/16/17 13:44 08/27/17 14:06 650 MG Al Hydrox/Mg Hydrox/Simethicone (Maalox Max Susp) 15 ml Q4H PRN PO 08/17/17 13:45 09/16/17 13:44 08/18/17 21:37 15 ML Magnesium Hydroxide (Milk Of Magnesia Susp) 30 ml Q6H PRN PO 08/17/17 13:45 09/16/17 13:44 Polyethylene (Miralax Powder Packet) 17 gm DAILY PRN PO 08/17/17 15:00 09/16/17 14:59 Ondansetron HCl (Zofran Inj) 4 mg Q6H PRN IV 08/17/17 13:45 09/16/17 13:44 08/23/17 05:47 4 MG Glucose (Glucose 40% Gel) 15-30 GRAMS 15 GRAMS... UD PRN PO 08/17/17 13:45 09/16/17 13:44 Glucose (Glucose Chew Tab) 4-8 Tablets 4 Tabl... UD PRN PO 08/17/17 13:45 09/16/17 13:44 Dextrose (Dextrose 50% 50ML Syringe) 25-50ML OF 50% DW IV FOR... UD PRN IV 08/17/17 13:45 09/16/17 13:44 Glucagon (Glucagon Inj) 1 mg UD PRN SQ 08/17/17 13:45 09/16/17 13:44 Latanoprost (Xalatan Oph Soln) 1 drops HS OPB 08/17/17 21:00 09/16/17 20:59 08/26/17 21:04 1 DROPS Atorvastatin Calcium (Lipitor Tab) 40 mg QAM PO 08/18/17 09:00 09/17/17 08:59 Future Hold 08/18/17 09:03 40 MG Carvedilol (Coreg Tab) 18.75 mg BID PO 08/17/17 21:00 09/16/17 20:59 08/27/17 08:26 18.75 MG Finasteride (Proscar Tab) 5 mg DAILY PO 08/18/17 09:00 09/17/17 08:59 Future Hold 08/18/17 09:03 5 MG Non-Formulary Medication (Darunavir Ethanolate (Prezista)) 800 mg HS PO 08/17/17 21:00 09/16/17 20:59 UNV Elvitegravir/ Cobicis/Emtricit/ Tenof (Genvoya [id number] Mg) 1 tab DAILY PO 08/18/17 09:00 09/17/17 08:59 Future Hold 08/18/17 09:17 1 TAB Morphine Sulfate (MoRPHine SULFATE INJ) 4 mg Q4H PRN IV 08/17/17 14:15 08/31/17 14:14 08/18/17 21:41 4 MG Famotidine 20 mg/ Syringe 5 ml @ 2.5 mls/min Q12H IV 08/18/17 19:00 09/17/17 18:59 08/27/17 18:41 2.5 MLS/MIN Zolpidem Tartrate (Ambien Tab) 5 mg HS PRN PO 08/18/17 22:00 09/17/17 21:59 Future Hold 08/18/17 23:16 5 MG Hydralazine HCl (HydrALAZINE INJ) 10 mg Q6H PRN IV. 08/19/17 10:30 09/18/17 10:29 08/26/17 16:39 10 MG Ciprofloxacin/ Dextrose 400 mg/ Prmx 200 ml @ 100 mls/hr Q24H IV 08/19/17 16:00 08/29/17 15:59 08/27/17 15:42 100 MLS/HR Metronidazole 500 mg/Prmx 100 ml @ 100 mls/hr Q8H IV 08/19/17 14:30 08/29/17 14:29 08/27/17 14:05 100 MLS/HR Ciprofloxacin (Consult) 1 ea UD PRN N/A 08/19/17 14:15 09/18/17 14:14 Menthol (Nice Royce) 1 royce Q1H PRN PO 08/19/17 18:45 09/18/17 18:44 08/19/17 18:53 1 ROYCE Albuterol/ Ipratropium (Duoneb) 3 ml Q6H PRN INH 08/20/17 12:00 09/18/17 11:59 08/20/17 19:58 3 ML Hydromorphone HCl (Dilaudid Inj) 0.5 mg Q3H PRN IV 08/20/17 13:30 09/03/17 13:29 08/24/17 19:17 0.5 MG Hydromorphone HCl (Dilaudid Inj) 1 mg Q3H PRN IV 08/20/17 13:30 09/03/17 13:29 08/25/17 15:54 1 MG Amlodipine Besylate (Norvasc Tab) 10 mg QAM PO 08/23/17 09:00 09/22/17 08:59 08/27/17 08:26 10 MG Dextrose 1,000 ml @ 0 mls/hr Q0M PRN IV 08/23/17 16:00 09/22/17 15:59 Miscellaneous Information (Pharmacy Tpn/ Ppn Consult Active) 1 ea UD PRN N/A 08/23/17 07:00 09/22/17 06:59 Insulin Aspart (novoLOG ASPART) SLIDING SCALE If C... Q6 SC 08/24/17 00:00 09/21/17 17:14 08/27/17 18:24 4 UNITS Metoclopramide HCl (Reglan Inj) 10 mg Q6 IV. 08/24/17 06:30 09/23/17 06:29 08/27/17 18:13 10 MG Senna (Senokot Syrup) 8.8 mg BID PO 08/24/17 09:00 09/23/17 08:59 08/27/17 08:38 8.8 MG Heparin Sodium (Porcine) (Heparin 10 Unit/ ml 5 ml Flush) 5 ml PRN PRN FLUSH 08/25/17 02:15 09/24/17 02:14 08/27/17 15:17 5 ML Heparin Sodium (Porcine) (Heparin Sq 5000 Unit/0.5ml) 5,000 unit Q12 SC 08/25/17 09:00 09/24/17 08:59 08/27/17 08:37 5,000 UNIT Nutrition (Parenteral) 0 ml @ 0 mls/hr TODAY@1600 IV 08/27/17 16:00 08/28/17 15:59 08/27/17 15:42 0 MLS/HR Insulin Glargine (Lantus Solostar Pen) 8 units QAM SC 08/28/17 09:00 09/27/17 08:59 Objective Vital Signs Date Time Temp Pulse Resp B/P (MAP) Pulse Ox O2 Delivery O2 Flow Rate FiO2 08/27/17 15:42 Room Air 08/27/17 15:00 36.6 64 16 163/76 (105) 98 Room Air 08/27/17 13:07 60 161/80 (107) 08/27/17 08:20 Room Air 08/27/17 07:26 36.8 80 19 181/88 (119) 97 Room Air 08/27/17 00:15 Room Air 08/26/17 23:25 36.5 80 17 165/86 (112) 96 Room Air Physical Exam General Appearance: WD/WN, no apparent distress Eyes: normal inspection, EOMI, sclerae normal ENT: normal ENT inspection, pharynx normal Neck: supple, no adenopathy, trachea midline Respiratory/Chest: chest non-tender, lungs clear, normal breath sounds, no respiratory distress Cardiovascular: regular rate, rhythm, no gallop, no murmur Abdomen: normal bowel sounds, soft, no organomegaly, + tenderness Extremities: non-tender, no calf tenderness Neurologic/Psychiatric: alert, oriented x 3 Skin: normal color, warm/dry, no rash Lymphatic: no adenopathy Laboratory Results Last 24 Hours Test 08/27/17 00:04 08/27/17 05:26 08/27/17 05:33 08/27/17 12:19 Bedside Glucose 155 mg/dl 199 mg/dl 271 mg/dl Sodium Level 145 mmol/L Potassium Level 3.4 mmol/L Chloride Level 119 mmol/L Carbon Dioxide Level 18 mmol/L Anion Gap 8.0 mmol/L Blood Urea Nitrogen 69 mg/dl Creatinine 3.24 mg/dl Est Creatinine Clear Calc Drug Dose 19.6 ml/min Estimated GFR () 22.3 Estimated GFR (Non- 19.3 BUN/Creatinine Ratio 21.3 Random Glucose 194 mg/dl Calcium Level 7.6 mg/dl Phosphorus Level 3.1 mg/dl Magnesium Level 2.0 mg/dl Test 08/27/17 18:07 Bedside Glucose 234 mg/dl Assessment and Plan 61-year-old transgender female with well controlled HIV infection now status post acute appendicitis with rupture with cultures growing Pseudomonas aeruginosa and anaerobic gram-positive bacilli. Given patient's penicillin allergy and good clinical response, I think that she can be continued on ciprofloxacin and metronidazole which could be transitioned to oral therapy as soon as she is able to take pills. She should also start at that time back on her baseline HIV medications as she has been well controlled. Will follow.
[2017-08-27] MEDS: LATANOPROST 0.005% OP SOLN 2.5 ML BTL OPB SCH (21:46)
[2017-08-27 22:50] VITALS: BP 149/69; PULSE 64; TEMP 37; O2SAT 94
[2017-08-28] MEDS: METOCLOPRAMIDE HCL INJ 5 MG/ML 2 ML VIAL IV. SCH ×4 (00:02→18:05)
[2017-08-28 06:00] LABS: HEMATOCRIT 25.4 % (42-52); HEMOGLOBIN 8.7 g/dL (14.0-18.0); MEAN CELL VOLUME 92.7 fL (80-100); MEAN CORPUSCULAR HEMOGLOBIN 31.8 pg (25-34); MEAN CORPUSCULAR HGB CONC 34.3 g/dl (32-36); MEAN PLATELET VOLUME 10.4 fL (7.4-10.4); PLATELET COUNT 328 K/uL (130-400); RED CELL DISTRIBUTION WIDTH SD 43.6 fL (36.4-46.3); WHITE BLOOD COUNT 15.28 K/uL (4.8-10.8)
[2017-08-28] MEDS: FAMOTIDINE IV INJ 20 MG in SYRINGE 3 ML IV SCH ×2 (06:08→19:17)
[2017-08-28] MEDS: METRONIDAZOLE / NSS 500 MG in PREMIXED NSS 100 ML IV SCH ×3 (06:08→22:39)
[2017-08-28 06:27] LABS: CALCIUM 7.8 mg/dl (8.5-10.1); CREATININE 2.98 mg/dl (0.60-1.40); PHOSPHORUS 3.1 mg/dl (2.5-4.9); POTASSIUM 3.8 mmol/L (3.5-5.1)
[2017-08-28] MEDS: INSULIN ASPART 100 UNITS/ML 3 ML PEN SC SCH ×4 (07:38→18:13)
[2017-08-28 07:54] VITALS: BP 158/75; PULSE 71; TEMP 36.5; O2SAT 97
[2017-08-28] MEDS: SENNA 8.8 MG/5 ML UDP PO SCH ×2 (09:00→21:00)
[2017-08-28] MEDS: CARVEDILOL 12.5 MG TAB PO SCH ×2 (09:09→21:11)
--- NOTE | 2017-08-28 09:36 | Surgery Progress Note ---
Surgery Progress Note Date of Service Aug 28, 2017. Subjective + bowel movement, + flatus, + pain controlled, No nausea, No vomiting Objective Vital Signs: Date Time Temp Pulse Resp B/P (MAP) Pulse Ox O2 Delivery O2 Flow Rate FiO2 08/28/17 07:54 36.5 71 17 158/75 (102) 97 Room Air 08/27/17 23:45 Room Air 08/27/17 22:50 37.0 64 16 149/69 (95) 94 Room Air 08/27/17 15:42 Room Air 08/27/17 15:00 36.6 64 16 163/76 (105) 98 Room Air 08/27/17 13:07 60 161/80 (107) General Appearance: WD/WN, no apparent distress Abdomen: + pertinent finding (some tenderness at abdomen, but improving. Distention improving. ) Incision(s): intact, no drainage Laboratory Results: Results Past 24 Hours Test 08/27/17 12:19 08/27/17 18:07 08/27/17 23:46 08/28/17 05:21 Range/Units Bedside Glucose 271 234 142 70-99 mg/dl White Blood Count 15.28 4.8-10.8 K/uL Red Blood Count 2.74 4.7-6.1 M/uL Hemoglobin 8.7 14.0-18.0 g/dL Hematocrit 25.4 42-52 % Mean Corpuscular Volume 92.7 80-100 fL Mean Corpuscular Hemoglobin 31.8 25-34 pg Mean Corpuscular Hemoglobin Concent 34.3 32-36 g/dl RDW Standard Deviation 43.6 36.4-46.3 fL RDW Coefficient of Variation 13.0 11.5-14.5 % Platelet Count 328 130-400 K/uL Mean Platelet Volume 10.4 7.4-10.4 fL Sodium Level 144 136-145 mmol/L Potassium Level 3.8 3.5-5.1 mmol/L Chloride Level 120 98-107 mmol/L Carbon Dioxide Level 18 21-32 mmol/L Anion Gap 6.0 3-11 mmol/L Blood Urea Nitrogen 68 7-18 mg/dl Creatinine 2.98 0.60-1.40 mg/dl Est Creatinine Clear Calc Drug Dose 21.2 ml/min Estimated GFR () 24.7 Estimated GFR (Non- 21.3 BUN/Creatinine Ratio 22.7 10-20 Random Glucose 160 70-99 mg/dl Calcium Level 7.8 8.5-10.1 mg/dl Phosphorus Level 3.1 2.5-4.9 mg/dl Magnesium Level 1.9 1.8-2.4 mg/dl Test 08/28/17 06:05 Range/Units Bedside Glucose 154 70-99 mg/dl Assessment & Plan 08/28/17- Patient seen and examined with Dr. Wren. +BM. Feeling somewhat better this AM. Tolerating clears- no nausea or vomiting. Will continue clears to see how she does for today. 08/28/17 as above. multiple large ( liquid bm's). brock sips clears will continue trays of clears today. doing well with ngt removed. 08/27/17- some concern for distention and mild ileus but minimal NG output and some bowel function. Tpn helping with edema/protein status. will try to d/c NG and limit po today- very slowly adv diet. may need NG back in if vomits. Dr Wren covering over weekend
--- NOTE | 2017-08-28 10:17 | Nephrology Progress Note ---
Nephrology Progress Note Date of Service Aug 28, 2017. Chief Complaint Acute on CKD Subjective Stacey was seen & examined in her hospital room this morning. She reports one BM yesterday. She remains on a liquid diet w/ PPN. Stacey currently denies fever, abdominal pain or difficulty voiding Review of Systems Constitutional: No fever Cardiovascular: No chest pain Respiratory: No dyspnea at rest Abdomen: No pain Genitourinary - Male: No dysuria, No urinary hesitancy Extremities: No leg edema A complete review of systems was performed. Pertinent positives are noted above. All other systems are negative. Vital Signs Last 8 Hrs Date Time Temp Pulse Resp B/P (MAP) Pulse Ox O2 Delivery O2 Flow Rate FiO2 08/28/17 07:54 36.5 71 17 158/75 (102) 97 Room Air Last Recorded Weight Weight (Kilograms): 63.600 Physical Exam General Appearance: no apparent distress Head: normocephalic, atraumatic Eyes: PERRL, EOMI Neck: no adenopathy Respiratory/Chest: lungs clear, no respiratory distress Cardiovascular: regular rate, rhythm Abdomen/GI: non tender (hypoactive bowel sounds) Extremities/Musculoskelatal: no pedal edema Neurologic/Psych: alert, oriented x 3 Family History Diabetes mellitus Hypertension Social History Smokeless Tobacco Use: No Alcohol Use: none Drug Use: none Marital Status: single Housing Status: other ([facility]) Occupation: unemployed Laboratory Results Past 24 Hours 08/28/17 05:21 08/28/17 05:21 Test 08/27/17 12:19 08/27/17 18:07 08/27/17 23:46 08/28/17 05:21 Bedside Glucose 271 mg/dl (70-99) 234 mg/dl (70-99) 142 mg/dl (70-99) Red Blood Count 2.74 M/uL (4.7-6.1) Mean Corpuscular Volume 92.7 fL (80-100) Mean Corpuscular Hemoglobin 31.8 pg (25-34) Mean Corpuscular Hemoglobin Concent 34.3 g/dl (32-36) RDW Standard Deviation 43.6 fL (36.4-46.3) RDW Coefficient of Variation 13.0 % (11.5-14.5) Mean Platelet Volume 10.4 fL (7.4-10.4) Anion Gap 6.0 mmol/L (3-11) Est Creatinine Clear Calc Drug Dose 21.2 ml/min Estimated GFR () 24.7 Estimated GFR (Non- 21.3 BUN/Creatinine Ratio 22.7 (10-20) Calcium Level 7.8 mg/dl (8.5-10.1) Phosphorus Level 3.1 mg/dl (2.5-4.9) Magnesium Level 1.9 mg/dl (1.8-2.4) Test 08/28/17 06:05 Bedside Glucose 154 mg/dl (70-99) Allergies Coded Allergies: Penicillins (Verified Allergy, Intermediate, UNKNOWN, 08/17/17) Medications Current Inpatient Medications Medications (Trade) Dose Ordered Sig/Carlin Route Start Time Stop Time Status Last Admin Dose Admin Acetaminophen (Tylenol Tab) 650 mg Q4H PRN PO 08/17/17 13:45 09/16/17 13:44 08/27/17 22:22 650 MG Al Hydrox/Mg Hydrox/Simethicone (Maalox Max Susp) 15 ml Q4H PRN PO 08/17/17 13:45 09/16/17 13:44 08/18/17 21:37 15 ML Magnesium Hydroxide (Milk Of Magnesia Susp) 30 ml Q6H PRN PO 08/17/17 13:45 09/16/17 13:44 Polyethylene (Miralax Powder Packet) 17 gm DAILY PRN PO 08/17/17 15:00 09/16/17 14:59 Ondansetron HCl (Zofran Inj) 4 mg Q6H PRN IV 08/17/17 13:45 09/16/17 13:44 08/23/17 05:47 4 MG Glucose (Glucose 40% Gel) 15-30 GRAMS 15 GRAMS... UD PRN PO 08/17/17 13:45 09/16/17 13:44 Glucose (Glucose Chew Tab) 4-8 Tablets 4 Tabl... UD PRN PO 08/17/17 13:45 09/16/17 13:44 Dextrose (Dextrose 50% 50ML Syringe) 25-50ML OF 50% DW IV FOR... UD PRN IV 08/17/17 13:45 09/16/17 13:44 Glucagon (Glucagon Inj) 1 mg UD PRN SQ 08/17/17 13:45 09/16/17 13:44 Latanoprost (Xalatan Oph Soln) 1 drops HS OPB 08/17/17 21:00 09/16/17 20:59 08/27/17 21:46 1 DROPS Atorvastatin Calcium (Lipitor Tab) 40 mg QAM PO 08/18/17 09:00 09/17/17 08:59 Future Hold 08/18/17 09:03 40 MG Carvedilol (Coreg Tab) 18.75 mg BID PO 08/17/17 21:00 09/16/17 20:59 08/27/17 21:56 18.75 MG Finasteride (Proscar Tab) 5 mg DAILY PO 08/18/17 09:00 09/17/17 08:59 Future Hold 08/18/17 09:03 5 MG Non-Formulary Medication (Darunavir Ethanolate (Prezista)) 800 mg HS PO 08/17/17 21:00 09/16/17 20:59 UNV Elvitegravir/ Cobicis/Emtricit/ Tenof (Genvoya [phone] Mg) 1 tab DAILY PO 08/18/17 09:00 09/17/17 08:59 Future Hold 08/18/17 09:17 1 TAB Morphine Sulfate (MoRPHine SULFATE INJ) 4 mg Q4H PRN IV 08/17/17 14:15 08/31/17 14:14 08/18/17 21:41 4 MG Famotidine 20 mg/ Syringe 5 ml @ 2.5 mls/min Q12H IV 08/18/17 19:00 09/17/17 18:59 08/28/17 06:08 2.5 MLS/MIN Zolpidem Tartrate (Ambien Tab) 5 mg HS PRN PO 08/18/17 22:00 09/17/17 21:59 Future Hold 08/18/17 23:16 5 MG Hydralazine HCl (HydrALAZINE INJ) 10 mg Q6H PRN IV. 08/19/17 10:30 09/18/17 10:29 08/26/17 16:39 10 MG Ciprofloxacin/ Dextrose 400 mg/ Prmx 200 ml @ 100 mls/hr Q24H IV 08/19/17 16:00 08/29/17 15:59 08/27/17 15:42 100 MLS/HR Metronidazole 500 mg/Prmx 100 ml @ 100 mls/hr Q8H IV 08/19/17 14:30 08/29/17 14:29 08/28/17 06:08 100 MLS/HR Ciprofloxacin (Consult) 1 UD PRN N/A 08/19/17 14:15 09/18/17 14:14 Menthol (Nice Nory) 1 nory Q1H PRN PO 08/19/17 18:45 09/18/17 18:44 08/19/17 18:53 1 NORY Albuterol/ Ipratropium (Duoneb) 3 ml Q6H PRN INH 08/20/17 12:00 09/18/17 11:59 08/20/17 19:58 3 ML Hydromorphone HCl (Dilaudid Inj) 0.5 mg Q3H PRN IV 08/20/17 13:30 09/03/17 13:29 08/24/17 19:17 0.5 MG Hydromorphone HCl (Dilaudid Inj) 1 mg Q3H PRN IV 08/20/17 13:30 09/03/17 13:29 08/25/17 15:54 1 MG Amlodipine Besylate (Norvasc Tab) 10 mg QAM PO 08/23/17 09:00 09/22/17 08:59 08/27/17 08:26 10 MG Dextrose 1,000 ml @ 0 mls/hr Q0M PRN IV 08/23/17 16:00 09/22/17 15:59 Miscellaneous Information (Pharmacy Tpn/ Ppn Consult Active) 1 [facility] [place] PRN N/A 08/23/17 07:00 09/22/17 06:59 Insulin Aspart (novoLOG ASPART) SLIDING SCALE If C... Q6 SC 08/24/17 00:00 09/21/17 17:14 08/28/17 07:38 1 UNITS Metoclopramide HCl (Reglan Inj) 10 mg Q6 IV. 08/24/17 06:30 09/23/17 06:29 08/28/17 06:08 10 MG Senna (Senokot Syrup) 8.8 mg BID PO 08/24/17 09:00 09/23/17 08:59 08/27/17 08:38 8.8 MG Heparin Sodium (Porcine) (Heparin 10 Unit/ ml 5 ml Flush) 5 ml PRN PRN FLUSH 08/25/17 02:15 09/24/17 02:14 08/28/17 00:08 5 ML Heparin Sodium (Porcine) (Heparin Sq 5000 Unit/0.5ml) 5,000 unit Q12 SC 08/25/17 09:00 09/24/17 08:59 08/27/17 21:49 5,000 UNIT Nutrition (Parenteral) 0 ml @ 0 mls/hr TODAY@1600 IV 08/27/17 16:00 08/28/17 15:59 08/27/17 15:42 0 MLS/HR Insulin Glargine (Lantus Solostar Pen) 8 units QAM SC 08/28/17 09:00 09/27/17 08:59 Impression (1) Acute kidney injury (2) CKD (chronic kidney disease), stage III (3) SBO (small bowel obstruction) (4) Proteinuria (5) Anemia (6) HTN (hypertension) (7) HIV (human immunodeficiency virus infection) Stacey has a past medical history significant for HTN, CKD and HIV. She was admitted to the hospital with SBO. She has stage III CKD w/ baseline creatinine 2.0 - 2.5. LEEROY was most likely ATN related to dehydration and small- bowel obstruction. CT abdomen & pelvis was negative for hydronephrosis. CKD is likely related to hypertensive/diabetic nephropathy but possibility for intrinsic glomerular disease such as FSGS with HIV or nephropathy from anti- retroviral medication remains. Patient is s/p exploratory laparotomy 08/20/2017: abdominal abscesses from ruptured appendix. Recommendations ACUTE KIDNEY INJURY: -- Creatinine peaked at 5.3. Patient remains within the recovery phase of ATN. Creatinine improved to 2.9 today. Patient is nonoliguric -- Patient remains on PPN. Will monitor PRP. No acute indication for HD at this time CHRONIC KIDNEY DISEASE: -- Baseline creatinine has been 2.0 - 2.5 METABOLIC ACIDOSIS: -- High anion gap acidosis and hypernatremia have resolved. Will monitor ID: -- Peritoneal fluid culture w/ Pseudomonas sensitive to Cipro -- Patient has mild leukocytosis -- On Cipro / Flagyl as per ID ANEMIA: -- Hgb dropped overnight. Patient denies overt blood loss. Will monitor -- CBC ordered for am
[2017-08-28] MEDS: HEPARIN SOD 5000 UNIT/0.5 ML CARP SC SCH ×2 (10:18→21:12)
[2017-08-28] MEDS: INSULIN GLARGINE SOLOSTAR 100 UNITS/ML 3 ML PEN SC SCH (10:20)
[2017-08-28] MEDS: AMLODIPINE BESYLATE 5 MG TAB PO SCH (10:20)
[2017-08-28 15:26] VITALS: BP 152/64; PULSE 71; TEMP 36.9; O2SAT 97
[2017-08-28] MEDS ORDERED: CUSTOM CENTRAL PN 1 BAG IV SCH (16:00)
[2017-08-28] MEDS: CIPROFLOXACIN / D5W 400 MG in PREMIXED IN D5W 200 ML IV SCH (16:08)
[2017-08-28 21:08] VITALS: BP 160/77; PULSE 68
[2017-08-28] MEDS: LATANOPROST 0.005% OP SOLN 2.5 ML BTL OPB SCH (21:10)
[2017-08-28] MEDS: ACETAMINOPHEN 325 MG TAB PO PRN (21:56)
--- NOTE | 2017-08-28 22:12 | Progress Note ---
Subjective Date of Service: Aug 28, 2017. Subjective Pt evaluation today including: conversation w/ patient, physical exam, chart review, lab review, review of studies, review of inpatient medication list Voiding: no voiding problems pt is seen and examined by me. pt is passing both flatus and had a big bowel movement this morning. No abdominal pain. NGT out and on clear liquid still on tpn. Problem List Medical Problems: (1) Acute renal failure Status: Acute (2) Bradycardia Status: Acute (3) Cardiopulmonary arrest Status: Acute (4) GI bleed Status: Acute (5) Heart block Status: Acute (6) PNA (pneumonia) Status: Acute (7) Renal failure Status: Acute (8) SBO (small bowel obstruction) Status: Acute (9) Sepsis Status: Acute Review of Systems All Other Systems: Reviewed and Negative Medications Medications (Trade) Dose Ordered Sig/Carlin Route Start Time Stop Time Status Last Admin Dose Admin Insulin Glargine (Lantus Solostar Pen) 8 units QAM SC 08/28/17 09:00 09/27/17 08:59 08/28/17 10:20 8 UNITS Nutrition (Parenteral) 0 ml @ 0 mls/hr TODAY@1600 IV 08/28/17 16:00 08/29/17 15:59 08/28/17 16:00 0 MLS/HR Objective Vital Signs Date Time Temp Pulse Resp B/P (MAP) Pulse Ox O2 Delivery O2 Flow Rate FiO2 08/28/17 21:08 68 160/77 (104) 08/28/17 16:00 Room Air 08/28/17 15:26 36.9 71 18 152/64 (93) 97 Room Air 08/28/17 07:54 36.5 71 17 158/75 (102) 97 Room Air 08/28/17 07:30 Room Air 08/27/17 23:45 Room Air 08/27/17 22:50 37.0 64 16 149/69 (95) 94 Room Air Laboratory Results Last 24 Hours Test 08/27/17 23:46 08/28/17 05:21 08/28/17 06:05 08/28/17 12:00 Bedside Glucose 142 mg/dl 154 mg/dl 201 mg/dl White Blood Count 15.28 K/uL Red Blood Count 2.74 M/uL Hemoglobin 8.7 g/dL Hematocrit 25.4 % Mean Corpuscular Volume 92.7 fL Mean Corpuscular Hemoglobin 31.8 pg Mean Corpuscular Hemoglobin Concent 34.3 g/dl RDW Standard Deviation 43.6 fL RDW Coefficient of Variation 13.0 % Platelet Count 328 K/uL Mean Platelet Volume 10.4 fL Sodium Level 144 mmol/L Potassium Level 3.8 mmol/L Chloride Level 120 mmol/L Carbon Dioxide Level 18 mmol/L Anion Gap 6.0 mmol/L Blood Urea Nitrogen 68 mg/dl Creatinine 2.98 mg/dl Est Creatinine Clear Calc Drug Dose 21.2 ml/min Estimated GFR () 24.7 Estimated GFR (Non- 21.3 BUN/Creatinine Ratio 22.7 Random Glucose 160 mg/dl Calcium Level 7.8 mg/dl Phosphorus Level 3.1 mg/dl Magnesium Level 1.9 mg/dl Assessment and Plan Patient is a 61 M with past medical history significant for HTN, CKD and HIV. She was admitted to the hospital with SBO. She has stage III CKD w/ baseline creatinine 2.0 - 2.5. LEEROY was most likely ATN related to dehydration and small- bowel obstruction. CT abdomen & pelvis was negative for hydronephrosis. CKD is likely related to hypertensive/diabetic nephropathy but possibility for intrinsic glomerular disease such as FSGS with HIV or nephropathy from anti- retroviral medication remains. Patient is s/p exploratory laparotomy 08/20/2017: abdominal abscesses from ruptured appendix. LEEROY on CKD: -- Creatinine peaked at 5.3. Patient remains within the recovery phase of ATN. Creatinine improved to 2.9 today. -- nephro input appreciated along side METABOLIC ACIDOSIS: -- resolved ID: -- Peritoneal fluid culture w/ Pseudomonas sensitive to Cipro -- Patient has mild leukocytosis -- On Cipro / Flagyl as per ID ANEMIA: -- Hgb dropped overnight. Patient denies overt blood loss. Will monitor -- CBC am Continued [facility] stay due to: inadequate po fluid intake Discharge planning: uncertain
[2017-08-28 22:46] VITALS: BP 142/69; PULSE 63; TEMP 37.4; O2SAT 98
[2017-08-29] MEDS: METOCLOPRAMIDE HCL INJ 5 MG/ML 2 ML VIAL IV. SCH ×5 (06:00→23:51)
[2017-08-29] MEDS: INSULIN ASPART 100 UNITS/ML 3 ML PEN SC SCH ×5 (06:00→23:54)
[2017-08-29] MEDS: FAMOTIDINE IV INJ 20 MG in SYRINGE 3 ML IV SCH ×2 (06:10→18:59)
[2017-08-29] MEDS: METRONIDAZOLE / NSS 500 MG in PREMIXED NSS 100 ML IV SCH (06:10)
[2017-08-29 06:32] LABS: BASO % 0.1 %; BASO ABS # 0.01 K/uL (0-0.2); EOS % 1.6 %; EOS ABS # 0.22 K/uL (0-0.5); HEMATOCRIT 23.6 % (42-52); HEMOGLOBIN 8.1 g/dL (14.0-18.0); IG# 0.08 K/uL (0.00-0.02); LYMPH % 9.8 %; LYMPH ABS # 1.36 K/uL (1.2-3.4); MEAN CELL VOLUME 93.3 fL (80-100); MEAN CORPUSCULAR HGB CONC 34.3 g/dl (32-36); MEAN PLATELET VOLUME 10.5 fL (7.4-10.4); MONO % 7.1 %; MONO ABS # 0.99 K/uL (0.11-0.59); NEUT % 80.8 %; NEUT ABS # 11.21 K/uL (1.4-6.5); PLATELET COUNT 314 K/uL (130-400); RED CELL DISTRIBUTION WIDTH CV 13.3 % (11.5-14.5); RED CELL DISTRIBUTION WIDTH SD 44.8 fL (36.4-46.3); WHITE BLOOD COUNT 13.87 K/uL (4.8-10.8)
[2017-08-29 06:57] LABS: CALCIUM 7.7 mg/dl (8.5-10.1); CREATININE 2.51 mg/dl (0.60-1.40)
[2017-08-29 06:59] LABS: PHOSPHORUS 2.5 mg/dl (2.5-4.9)
[2017-08-29 07:28] VITALS: BP 167/81; PULSE 68; TEMP 36.8; O2SAT 99
[2017-08-29] MEDS: SENNA 8.8 MG/5 ML UDP PO SCH ×2 (07:39→21:00)
[2017-08-29] MEDS: INSULIN GLARGINE SOLOSTAR 100 UNITS/ML 3 ML PEN SC SCH (07:44)
[2017-08-29] MEDS: HEPARIN SOD 5000 UNIT/0.5 ML CARP SC SCH ×2 (07:45→21:00)
[2017-08-29] MEDS: ACETAMINOPHEN 325 MG TAB PO PRN (07:46)
[2017-08-29] MEDS: CARVEDILOL 12.5 MG TAB PO SCH ×2 (07:46→22:07)
[2017-08-29] MEDS: AMLODIPINE BESYLATE 5 MG TAB PO SCH (07:46)
--- NOTE | 2017-08-29 10:19 | Surgery Progress Note ---
Surgery Progress Note Date of Service Aug 29, 2017. Subjective + feeling well best she has felt since surgery. bm's now more solid. "hungry" Objective Vital Signs: Date Time Temp Pulse Resp B/P (MAP) Pulse Ox O2 Delivery O2 Flow Rate FiO2 08/29/17 08:00 Room Air 08/29/17 07:28 36.8 68 17 167/81 (109) 99 Room Air 08/29/17 00:15 Room Air 08/28/17 22:46 37.4 63 16 142/69 (93) 98 Room Air 08/28/17 21:08 68 160/77 (104) 08/28/17 16:00 Room Air 08/28/17 15:26 36.9 71 18 152/64 (93) 97 Room Air General Appearance: no apparent distress Head: normocephalic Abdomen: non tender, soft Laboratory Results: Results Past 24 Hours Test 08/28/17 12:00 08/28/17 18:03 08/28/17 23:49 08/29/17 06:08 Range/Units Bedside Glucose 201 162 140 70-99 mg/dl White Blood Count 13.87 4.8-10.8 K/uL Red Blood Count 2.53 4.7-6.1 M/uL Hemoglobin 8.1 14.0-18.0 g/dL Hematocrit 23.6 42-52 % Mean Corpuscular Volume 93.3 80-100 fL Mean Corpuscular Hemoglobin 32.0 25-34 pg Mean Corpuscular Hemoglobin Concent 34.3 32-36 g/dl Platelet Count 314 130-400 K/uL Mean Platelet Volume 10.5 7.4-10.4 fL Neutrophils (%) (Auto) 80.8 % Lymphocytes (%) (Auto) 9.8 % Monocytes (%) (Auto) 7.1 % Eosinophils (%) (Auto) 1.6 % Basophils (%) (Auto) 0.1 % Neutrophils # (Auto) 11.21 1.4-6.5 K/uL Lymphocytes # (Auto) 1.36 1.2-3.4 K/uL Monocytes # (Auto) 0.99 0.11-0.59 K/uL Eosinophils # (Auto) 0.22 0-0.5 K/uL Basophils # (Auto) 0.01 0-0.2 K/uL RDW Standard Deviation 44.8 36.4-46.3 fL RDW Coefficient of Variation 13.3 11.5-14.5 % Immature Granulocyte % (Auto) 0.6 % Immature Granulocyte # (Auto) 0.08 0.00-0.02 K/uL Red Blood Cell Morphology Unremarkable Sodium Level 144 136-145 mmol/L Potassium Level 4.0 3.5-5.1 mmol/L Chloride Level 118 98-107 mmol/L Carbon Dioxide Level 17 21-32 mmol/L Anion Gap 9.0 3-11 mmol/L Blood Urea Nitrogen 60 7-18 mg/dl Creatinine 2.51 0.60-1.40 mg/dl Est Creatinine Clear Calc Drug Dose 24.7 ml/min Estimated GFR () 30.4 Estimated GFR (Non- 26.2 BUN/Creatinine Ratio 24.1 10-20 Random Glucose 80 70-99 mg/dl Calcium Level 7.7 8.5-10.1 mg/dl Phosphorus Level 2.5 2.5-4.9 mg/dl Magnesium Level 1.8 1.8-2.4 mg/dl Test 08/29/17 08:13 Range/Units Bedside Glucose 104 70-99 mg/dl Assessment & Plan 08/29/17 seems to have turned the corner soft diet d/c planning if tolerates diet 08/28/17- Patient seen and examined with Dr. Wren. +BM. Feeling somewhat better this AM. Tolerating clears- no nausea or vomiting. Will continue clears to see how she does for today. 08/28/17 as above. multiple large ( liquid bm's). brock sips clears will continue trays of clears today. doing well with ngt removed. 08/27/17- some concern for distention and mild ileus but minimal NG output and some bowel function. Tpn helping with edema/protein status. will try to d/c NG and limit po today- very slowly adv diet. may need NG back in if vomits. Dr Wren covering over weekend 08/28/17- Patient seen and examined with Dr. Wren. +BM. Feeling somewhat better this AM. Tolerating clears- no nausea or vomiting. Will continue clears to see how she does for today. 08/28/17 as above. multiple large ( liquid bm's). brock sips clears will continue trays of clears today. doing well with ngt removed. 08/27/17- some concern for distention and mild ileus but minimal NG output and some bowel function. Tpn helping with edema/protein status. will try to d/c NG and limit po today- very slowly adv diet. may need NG back in if vomits. Dr Wren covering over weekend
--- NOTE | 2017-08-29 10:31 | Nephrology Progress Note ---
Nephrology Progress Note Date of Service Aug 29, 2017. Chief Complaint Acute on CKD Subjective Stacey was seen & examined in her hospital room this morning. She is tolerating a liquid diet and reports a loose BM yesterday. Mathis catheter has been removed. She is voiding without difficulty. Stacey remains on PPN. She voices no new medical concerns at this time. Review of Systems Constitutional: No fever Cardiovascular: No chest pain Respiratory: No dyspnea at rest Abdomen: No vomiting, No diarrhea Extremities: No leg edema A complete review of systems was performed. Pertinent positives are noted above. All other systems are negative. Vital Signs Last 8 Hrs Date Time Temp Pulse Resp B/P (MAP) Pulse Ox O2 Delivery O2 Flow Rate FiO2 08/29/17 08:00 Room Air 08/29/17 07:28 36.8 68 17 167/81 (109) 99 Room Air Last Recorded Weight Weight (Kilograms): 57.900 Physical Exam General Appearance: no apparent distress Head: normocephalic, atraumatic Eyes: PERRL, EOMI Neck: no adenopathy Respiratory/Chest: lungs clear, no respiratory distress Cardiovascular: regular rate, rhythm Abdomen/GI: non tender (hypoactive bowel sounds) Extremities/Musculoskelatal: no calf tenderness, no pedal edema Neurologic/Psych: alert, oriented x 3 Family History Diabetes mellitus Hypertension Social History Smokeless Tobacco Use: No Alcohol Use: none Drug Use: none Marital Status: single Housing Status: other ([facility]) Occupation: unemployed Laboratory Results Past 24 Hours 08/29/17 06:08 Red Blood Count 2.53, Mean Corpuscular Volume 93.3, Mean Corpuscular Hemoglobin 32.0, Mean Corpuscular Hemoglobin Concent 34.3, Mean Platelet Volume 10.5, Neutrophils (%) (Auto) 80.8, Lymphocytes (%) (Auto) 9.8, Monocytes (%) (Auto) 7.1, Eosinophils (%) (Auto) 1.6, Basophils (%) (Auto) 0.1, Neutrophils # (Auto) 11.21, Lymphocytes # (Auto) 1.36, Monocytes # (Auto) 0.99, Eosinophils # (Auto) 0.22, Basophils # (Auto) 0.01 08/29/17 06:08 Test 08/28/17 12:00 1/20/18 18:03 08/28/17 23:49 08/29/17 06:08 Bedside Glucose 201 mg/dl (70-99) 162 mg/dl (70-99) 140 mg/dl (70-99) White Blood Count 13.87 K/uL (4.8-10.8) Red Blood Count 2.53 M/uL (4.7-6.1) Hemoglobin 8.1 g/dL (14.0-18.0) Hematocrit 23.6 % (42-52) Mean Corpuscular Volume 93.3 fL (80-100) Mean Corpuscular Hemoglobin 32.0 pg (25-34) Mean Corpuscular Hemoglobin Concent 34.3 g/dl (32-36) Platelet Count 314 K/uL (130-400) Mean Platelet Volume 10.5 fL (7.4-10.4) Neutrophils (%) (Auto) 80.8 % Lymphocytes (%) (Auto) 9.8 % Monocytes (%) (Auto) 7.1 % Eosinophils (%) (Auto) 1.6 % Basophils (%) (Auto) 0.1 % Neutrophils # (Auto) 11.21 K/uL (1.4-6.5) Lymphocytes # (Auto) 1.36 K/uL (1.2-3.4) Monocytes # (Auto) 0.99 K/uL (0.11-0.59) Eosinophils # (Auto) 0.22 K/uL (0-0.5) Basophils # (Auto) 0.01 K/uL (0-0.2) RDW Standard Deviation 44.8 fL (36.4-46.3) RDW Coefficient of Variation 13.3 % (11.5-14.5) Immature Granulocyte % (Auto) 0.6 % Immature Granulocyte # (Auto) 0.08 K/uL (0.00-0.02) Red Blood Cell Morphology Unremarkable Anion Gap 9.0 mmol/L (3-11) Est Creatinine Clear Calc Drug Dose 24.7 ml/min Estimated GFR () 30.4 Estimated GFR (Non- 26.2 BUN/Creatinine Ratio 24.1 (10-20) Calcium Level 7.7 mg/dl (8.5-10.1) Phosphorus Level 2.5 mg/dl (2.5-4.9) Magnesium Level 1.8 mg/dl (1.8-2.4) Test 08/29/17 08:13 Bedside Glucose 104 mg/dl (70-99) Allergies Coded Allergies: Penicillins (Verified Allergy, Intermediate, UNKNOWN, 08/17/17) Medications Current Inpatient Medications Medications (Trade) Dose Ordered Sig/Carlin Route Start Time Stop Time Status Last Admin Dose Admin Acetaminophen (Tylenol Tab) 650 mg Q4H PRN PO 08/17/17 13:45 09/16/17 13:44 08/29/17 07:46 650 MG Al Hydrox/Mg Hydrox/Simethicone (Maalox Max Susp) 15 ml Q4H PRN PO 08/17/17 13:45 09/16/17 13:44 08/18/17 21:37 15 ML Magnesium Hydroxide (Milk Of Magnesia Susp) 30 ml Q6H PRN PO 08/17/17 13:45 09/16/17 13:44 Polyethylene (Miralax Powder Packet) 17 gm DAILY PRN PO 08/17/17 15:00 09/16/17 14:59 Ondansetron HCl (Zofran Inj) 4 mg Q6H PRN IV 08/17/17 13:45 09/16/17 13:44 08/23/17 05:47 4 MG Glucose (Glucose 40% Gel) 15-30 GRAMS 15 GRAMS... UD PRN PO 08/17/17 13:45 09/16/17 13:44 Glucose (Glucose Chew Tab) 4-8 Tablets 4 Tabl... UD PRN PO 08/17/17 13:45 09/16/17 13:44 Dextrose (Dextrose 50% 50ML Syringe) 25-50ML OF 50% DW IV FOR... UD PRN IV 08/17/17 13:45 09/16/17 13:44 Glucagon (Glucagon Inj) 1 mg UD PRN SQ 08/17/17 13:45 09/16/17 13:44 Latanoprost (Xalatan Oph Soln) 1 drops HS OPB 08/17/17 21:00 09/16/17 20:59 08/28/17 21:10 1 DROPS Atorvastatin Calcium (Lipitor Tab) 40 mg QAM PO 08/18/17 09:00 09/17/17 08:59 Future Hold 08/18/17 09:03 40 MG Carvedilol (Coreg Tab) 18.75 mg BID PO 08/17/17 21:00 09/16/17 20:59 08/29/17 07:46 18.75 MG Finasteride (Proscar Tab) 5 mg DAILY PO 08/18/17 09:00 09/17/17 08:59 Future Hold 08/18/17 09:03 5 MG Non-Formulary Medication (Darunavir Ethanolate (Prezista)) 800 mg HS PO 08/17/17 21:00 09/16/17 20:59 UNV Elvitegravir/ Cobicis/Emtricit/ Tenof (Genvoya [id number] Mg) 1 tab DAILY PO 08/18/17 09:00 09/17/17 08:59 Future Hold 08/18/17 09:17 1 TAB Morphine Sulfate (MoRPHine SULFATE INJ) 4 mg Q4H PRN IV 08/17/17 14:15 08/31/17 14:14 08/18/17 21:41 4 MG Famotidine 20 mg/ Syringe 5 ml @ 2.5 mls/min Q12H IV 08/18/17 19:00 09/17/17 18:59 08/29/17 06:10 2.5 MLS/MIN Zolpidem Tartrate (Ambien Tab) 5 mg HS PRN PO 08/18/17 22:00 09/17/17 21:59 Future Hold 08/18/17 23:16 5 MG Hydralazine HCl (HydrALAZINE INJ) 10 mg Q6H PRN IV. 08/19/17 10:30 09/18/17 10:29 08/26/17 16:39 10 MG Ciprofloxacin/ Dextrose 400 mg/ Prmx 200 ml @ 100 mls/hr Q24H IV 08/19/17 16:00 08/29/17 15:59 08/28/17 16:08 100 MLS/HR Metronidazole 500 mg/Prmx 100 ml @ 100 mls/hr Q8H IV 08/19/17 14:30 08/29/17 14:29 08/29/17 06:10 100 MLS/HR Ciprofloxacin (Consult) 1 ea UD PRN N/A 08/19/17 14:15 09/18/17 14:14 Menthol (Nice Nory) 1 nory Q1H PRN PO 08/19/17 18:45 09/18/17 18:44 08/19/17 18:53 1 NORY Albuterol/ Ipratropium (Duoneb) 3 ml Q6H PRN INH 08/20/17 12:00 09/18/17 11:59 08/20/17 19:58 3 ML Hydromorphone HCl (Dilaudid Inj) 0.5 mg Q3H PRN IV 08/20/17 13:30 09/03/17 13:29 08/24/17 19:17 0.5 MG Hydromorphone HCl (Dilaudid Inj) 1 mg Q3H PRN IV 08/20/17 13:30 09/03/17 13:29 08/25/17 15:54 1 MG Amlodipine Besylate (Norvasc Tab) 10 mg QAM PO 08/23/17 09:00 09/22/17 08:59 08/29/17 07:46 10 MG Dextrose 1,000 ml @ 0 mls/hr Q0M PRN IV 08/23/17 16:00 09/22/17 15:59 Miscellaneous Information (Pharmacy Tpn/ Ppn Consult Active) 1 ea UD PRN N/A 08/23/17 07:00 09/22/17 06:59 Insulin Aspart (novoLOG ASPART) SLIDING SCALE If C... Q6 SC 08/24/17 00:00 09/21/17 17:14 08/28/17 18:13 4 UNITS Metoclopramide HCl (Reglan Inj) 10 mg Q6 IV. 08/24/17 06:30 09/23/17 06:29 08/28/17 18:05 10 MG Senna (Senokot Syrup) 8.8 mg BID PO 08/24/17 09:00 09/23/17 08:59 08/27/17 08:38 8.8 MG Heparin Sodium (Porcine) (Heparin 10 Unit/ ml 5 ml Flush) 5 ml PRN PRN FLUSH 08/25/17 02:15 09/24/17 02:14 08/28/17 19:15 5 ML Heparin Sodium (Porcine) (Heparin Sq 5000 Unit/0.5ml) 5,000 unit Q12 SC 08/25/17 09:00 09/24/17 08:59 08/29/17 07:45 5,000 UNIT Insulin Glargine (Lantus Solostar Pen) 8 units QAM SC 08/28/17 09:00 09/27/17 08:59 08/29/17 07:44 8 UNITS Nutrition (Parenteral) 0 ml @ 0 mls/hr TODAY@1600 IV 08/28/17 16:00 08/29/17 15:59 08/28/17 16:00 0 MLS/HR Impression (1) Acute kidney injury (2) CKD (chronic kidney disease), stage III (3) SBO (small bowel obstruction) (4) Proteinuria (5) Anemia (6) HTN (hypertension) (7) HIV (human immunodeficiency virus infection) Stacey has a past medical history significant for HTN, CKD and HIV. She was admitted to the hospital with SBO. She has stage III CKD w/ baseline creatinine 2.0 - 2.5. LEEROY was most likely ATN related to dehydration and small- bowel obstruction. CT abdomen & pelvis was negative for hydronephrosis. CKD is likely related to hypertensive/diabetic nephropathy but possibility for intrinsic glomerular disease such as FSGS with HIV or nephropathy from anti- retroviral medication remains. Patient is s/p exploratory laparotomy 08/20/2017: abdominal abscesses from ruptured appendix. Recommendations ACUTE KIDNEY INJURY: -- Resolved. Creatinine peaked at 5.3 but has gradually improved to her baseline of 2.5 today. Patient is nonoliguric -- Patient remains on PPN. Will monitor PRP. CHRONIC KIDNEY DISEASE: -- Baseline creatinine has been 2.0 - 2.5 METABOLIC ACIDOSIS: -- Stable metabolic acidosis related to CKD. Recommend increasing NaHCO3 in PPN if possible ID: -- Peritoneal fluid culture w/ Pseudomonas sensitive to Cipro -- Patient has mild leukocytosis -- On Cipro / Flagyl as per ID ANEMIA: -- Hgb trending down. Patient denies overt blood loss. Will monitor -- CBC ordered for am
--- NOTE | 2017-08-29 11:00 | Progress Note ---
Subjective Date of Service: Aug 29, 2017. Subjective Pt evaluation today including: conversation w/ patient, physical exam, chart review, lab review, review of inpatient medication list PO Intake: okay Voiding: no voiding problems Patient is seen and examined by me. Pt denies cp, sob, dizziness palliation and loss of consciousness.Pt denies nausea, vomiting and diarrhea. Pt feels the best today, and states she will try some solids today. Problem List Medical Problems: (1) Acute renal failure Status: Acute (2) Bradycardia Status: Acute (3) Cardiopulmonary arrest Status: Acute (4) GI bleed Status: Acute (5) Heart block Status: Acute (6) PNA (pneumonia) Status: Acute (7) Renal failure Status: Acute (8) SBO (small bowel obstruction) Status: Acute (9) Sepsis Status: Acute Review of Systems All Other Systems: Reviewed and Negative Medications Medications (Trade) Dose Ordered Sig/Carlin Route Start Time Stop Time Status Last Admin Dose Admin Nutrition (Parenteral) 0 ml @ 0 mls/hr TODAY@1600 IV 08/28/17 16:00 08/29/17 15:59 08/28/17 16:00 0 MLS/HR Objective Vital Signs Date Time Temp Pulse Resp B/P (MAP) Pulse Ox O2 Delivery O2 Flow Rate FiO2 08/29/17 08:00 Room Air 08/29/17 07:28 36.8 68 17 167/81 (109) 99 Room Air 08/29/17 00:15 Room Air 08/28/17 22:46 37.4 63 16 142/69 (93) 98 Room Air 08/28/17 21:08 68 160/77 (104) 08/28/17 16:00 Room Air 08/28/17 15:26 36.9 71 18 152/64 (93) 97 Room Air Physical Exam General Appearance: no apparent distress Neck: supple Cardiovascular: regular rate, rhythm, no gallop, no murmur Abdomen: normal bowel sounds, soft Extremities: no calf tenderness Neurologic/Psychiatric: alert, oriented x 3 Skin: no rash Laboratory Results Last 24 Hours Test 08/28/17 12:00 08/28/17 18:03 08/28/17 23:49 08/29/17 06:08 Bedside Glucose 201 mg/dl 162 mg/dl 140 mg/dl White Blood Count 13.87 K/uL Red Blood Count 2.53 M/uL Hemoglobin 8.1 g/dL Hematocrit 23.6 % Mean Corpuscular Volume 93.3 fL Mean Corpuscular Hemoglobin 32.0 pg Mean Corpuscular Hemoglobin Concent 34.3 g/dl Platelet Count 314 K/uL Mean Platelet Volume 10.5 fL Neutrophils (%) (Auto) 80.8 % Lymphocytes (%) (Auto) 9.8 % Monocytes (%) (Auto) 7.1 % Eosinophils (%) (Auto) 1.6 % Basophils (%) (Auto) 0.1 % Neutrophils # (Auto) 11.21 K/uL Lymphocytes # (Auto) 1.36 K/uL Monocytes # (Auto) 0.99 K/uL Eosinophils # (Auto) 0.22 K/uL Basophils # (Auto) 0.01 K/uL RDW Standard Deviation 44.8 fL RDW Coefficient of Variation 13.3 % Immature Granulocyte % (Auto) 0.6 % Immature Granulocyte # (Auto) 0.08 K/uL Red Blood Cell Morphology Unremarkable Sodium Level 144 mmol/L Potassium Level 4.0 mmol/L Chloride Level 118 mmol/L Carbon Dioxide Level 17 mmol/L Anion Gap 9.0 mmol/L Blood Urea Nitrogen 60 mg/dl Creatinine 2.51 mg/dl Est Creatinine Clear Calc Drug Dose 24.7 ml/min Estimated GFR () 30.4 Estimated GFR (Non- 26.2 BUN/Creatinine Ratio 24.1 Random Glucose 80 mg/dl Calcium Level 7.7 mg/dl Phosphorus Level 2.5 mg/dl Magnesium Level 1.8 mg/dl Test 08/29/17 08:13 Bedside Glucose 104 mg/dl Assessment and Plan Patient is a 61 M with past medical history significant for HTN, CKD and HIV. She was admitted to the hospital with SBO. She has stage III CKD w/ baseline creatinine 2.0 - 2.5. LEEROY was most likely ATN related to dehydration and small- bowel obstruction. CT abdomen & pelvis was negative for hydronephrosis. CKD is likely related to hypertensive/diabetic nephropathy but possibility for intrinsic glomerular disease such as FSGS with HIV or nephropathy from anti- retroviral medication remains. Patient is s/p exploratory laparotomy 08/20/2017: abdominal abscesses from ruptured appendix. s/p ex-lap on 08/[address] Elizabeth for SBO, finding ruptured appendicitis with abscess formation: -- NG tube placed on 08/19- removed on 08/22 and diet advanced to clears- did not tolerated and NG replaced on 08/23- placed PICC line and started TPN on 08/24 -- still on clear liquid need to do little better on diet, once more towards solid food will take her off tpn LEEROY on CKD: -- Creatinine peaked at 5.3. Patient remains within the recovery phase of ATN. Creatinine improved to 2.1 today. back to baseline -- nephro input appreciated along side METABOLIC ACIDOSIS: -- resolved ID: -- Peritoneal fluid culture w/ Pseudomonas sensitive to Cipro -- Patient has mild leukocytosis -- On Cipro / Flagyl as per ID ANEMIA: -- Hgb dropped overnight. Patient denies overt blood loss. Will monitor -- CBC am Continued [facility] stay due to: inadequate po fluid intake Discharge planning: uncertain
[2017-08-29] MEDS ORDERED: CUSTOM CENTRAL PN 1 BAG IV SCH (16:00)
[2017-08-29 16:15] VITALS: BP 149/77; PULSE 70; TEMP 37.5; O2SAT 99
[2017-08-29 22:04] VITALS: BP 156/70; PULSE 68
[2017-08-29] MEDS: LATANOPROST 0.005% OP SOLN 2.5 ML BTL OPB SCH (22:07)
[2017-08-29 23:50] VITALS: BP 139/62; PULSE 71; TEMP 37.4; O2SAT 98
[2017-08-30] MEDS: FAMOTIDINE IV INJ 20 MG in SYRINGE 3 ML IV SCH ×2 (05:57→19:02)
[2017-08-30] MEDS: METOCLOPRAMIDE HCL INJ 5 MG/ML 2 ML VIAL IV. SCH ×4 (05:57→23:54)
[2017-08-30 05:59] LABS: BASO % 0.2 %; BASO ABS # 0.02 K/uL (0-0.2); EOS % 1.7 %; EOS ABS # 0.21 K/uL (0-0.5); HEMATOCRIT 22.1 % (42-52); HEMOGLOBIN 7.4 g/dL (14.0-18.0); IG# 0.05 K/uL (0.00-0.02); LYMPH % 12.1 %; LYMPH ABS # 1.51 K/uL (1.2-3.4); MEAN CORPUSCULAR HEMOGLOBIN 31.5 pg (25-34); MEAN CORPUSCULAR HGB CONC 33.5 g/dl (32-36); MEAN PLATELET VOLUME 11.1 fL (7.4-10.4); MONO % 6.3 %; MONO ABS # 0.78 K/uL (0.11-0.59); NEUT % 79.3 %; NEUT ABS # 9.87 K/uL (1.4-6.5); PLATELET COUNT 314 K/uL (130-400); RED CELL DISTRIBUTION WIDTH CV 13.8 % (11.5-14.5); RED CELL DISTRIBUTION WIDTH SD 46.6 fL (36.4-46.3); WHITE BLOOD COUNT 12.44 K/uL (4.8-10.8)
[2017-08-30] MEDS: INSULIN ASPART 100 UNITS/ML 3 ML PEN SC SCH ×3 (05:59→18:44)
[2017-08-30 06:36] LABS: CALCIUM 7.6 mg/dl (8.5-10.1); CREATININE 2.5 mg/dl (0.60-1.40); POTASSIUM 4.8 mmol/L (3.5-5.1)
--- NOTE | 2017-08-30 06:47 | Surgery Progress Note ---
Surgery Progress Note Date of Service Aug 30, 2017. Subjective feeling ok- BM yest- loose, +flatus- no emesis over weekend Dr min, serous, very good urine output gradual drop in H/H- no evidence of acute bleeding Objective Vital Signs: Date Time Temp Pulse Resp B/P (MAP) Pulse Ox O2 Delivery O2 Flow Rate FiO2 08/29/17 23:50 37.4 71 18 139/62 (87) 98 Room Air 08/29/17 23:48 Room Air 08/29/17 22:04 68 156/70 (98) 08/29/17 16:15 37.5 70 18 149/77 (101) 99 Room Air 08/29/17 15:30 Room Air 08/29/17 08:00 Room Air 08/29/17 07:28 36.8 68 17 167/81 (109) 99 Room Air General Appearance: no apparent distress Respiratory/Chest: no respiratory distress Abdomen: non tender, + distended (less distention, has more active bs) Incision(s): intact, drainage (serous) Laboratory Results: Results Past 24 Hours Test 08/29/17 08:13 08/29/17 12:04 08/29/17 12:11 08/29/17 18:04 Range/Units Bedside Glucose 104 150 151 473 70-99 mg/dl Test 08/29/17 18:06 08/29/17 23:53 08/30/17 05:38 08/30/17 06:10 Range/Units Bedside Glucose 104 137 70-99 mg/dl White Blood Count 12.44 4.8-10.8 K/uL Red Blood Count 2.35 4.7-6.1 M/uL Hemoglobin 7.4 14.0-18.0 g/dL Hematocrit 22.1 42-52 % Mean Corpuscular Volume 94.0 80-100 fL Mean Corpuscular Hemoglobin 31.5 25-34 pg Mean Corpuscular Hemoglobin Concent 33.5 32-36 g/dl Platelet Count 314 130-400 K/uL Mean Platelet Volume 11.1 7.4-10.4 fL Neutrophils (%) (Auto) 79.3 % Lymphocytes (%) (Auto) 12.1 % Monocytes (%) (Auto) 6.3 % Eosinophils (%) (Auto) 1.7 % Basophils (%) (Auto) 0.2 % Neutrophils # (Auto) 9.87 1.4-6.5 K/uL Lymphocytes # (Auto) 1.51 1.2-3.4 K/uL Monocytes # (Auto) 0.78 0.11-0.59 K/uL Eosinophils # (Auto) 0.21 0-0.5 K/uL Basophils # (Auto) 0.02 0-0.2 K/uL RDW Standard Deviation 46.6 36.4-46.3 fL RDW Coefficient of Variation 13.8 11.5-14.5 % Immature Granulocyte % (Auto) 0.4 % Immature Granulocyte # (Auto) 0.05 0.00-0.02 K/uL Echinocytes 1+ Sodium Level 139 136-145 mmol/L Potassium Level 4.8 3.5-5.1 mmol/L Chloride Level 114 98-107 mmol/L Carbon Dioxide Level 20 21-32 mmol/L Anion Gap 5.0 3-11 mmol/L Blood Urea Nitrogen 56 7-18 mg/dl Creatinine 2.50 0.60-1.40 mg/dl Est Creatinine Clear Calc Drug Dose 25.3 ml/min Estimated GFR () 30.5 Estimated GFR (Non- 26.3 BUN/Creatinine Ratio 22.4 10-20 Random Glucose 133 70-99 mg/dl Calcium Level 7.6 8.5-10.1 mg/dl Assessment & Plan 08/30/17- slowly improving GI function- Cont Tpn, try full liquids. d/c drain, check H/H, hold SC Heparin. Expect loose bms Continue IV atbx- ID following 08/27/17- some concern for distention and mild ileus but minimal NG output and some bowel function. Tpn helping with edema/protein status. will try to d/c NG and limit po today- very slowly adv diet. may need NG back in if vomits. Dr Wren covering over weekend 08/26/17- some slow improvement- not yet convinced GI activity ready for removal of NG- cont Tpn, try sips of clears w/ NG clamped. increase mobility if possible 08/25/17- intraop cult- pseudomonas- sens to Cipro- discussed with Dr Darnell- cont same for now- ID will see as pt is HIV + 08/25/17- will order Tpn- central w/ picc line, d/c velazquez, leave drain. cont NG as he is still distended. overall some progress but expected to be slow. coughing up loose secretions- cont atbx 08/24/17- ileus not unexpected- ppn ordered- not started- pharmacy notified. Will probably benefit from picc line for addnl calories cont NG, try some Reglan. cont wound care, IV atbx 08/23/17- pt s/p laparotomy , lysis of adhesions, drainage abd abscess appendectomy- at risk for ileus- vomited- check film, clears only if vomits again will need NG- order periph tpn- may need Picc line ambulate 08/20/17- GI evaluation noted- on IV atbx- distention of abd same or worse will try to give some contrast via NG and rescan pt- no IV contrast considering abd exploration- will also discuss with GI 08/19/17- Persistent distention- ? gastric, ? bowel- atypical for mechanical sbo - will have NG placed, check labs, will possibly need contrast study but will not tolerate po- ask GI to see . may come explor lap if does not resolve 08/18/17- will try full liquids- nephrology checking on pt will cont to follow progress 08/27/17- some concern for distention and mild ileus but minimal NG output and some bowel function. Tpn helping with edema/protein status. will try to d/c NG and limit po today- very slowly adv diet. may need NG back in if vomits. Dr Wren covering over weekend 08/26/17- some slow improvement- not yet convinced GI activity ready for removal of NG- cont Tpn, try sips of clears w/ NG clamped. increase mobility if possible 08/25/17- intraop cult- pseudomonas- sens to Cipro- discussed with Dr Darnell- cont same for now- ID will see as pt is HIV + 08/25/17- will order Tpn- central w/ picc line, d/c velazquez, leave drain. cont NG as he is still distended. overall some progress but expected to be slow. coughing up loose secretions- cont atbx 08/24/17- ileus not unexpected- ppn ordered- not started- pharmacy notified. Will probably benefit from picc line for addnl calories cont NG, try some Reglan. cont wound care, IV atbx 08/23/17- pt s/p laparotomy , lysis of adhesions, drainage abd abscess appendectomy- at risk for ileus- vomited- check film, clears only if vomits again will need NG- order periph tpn- may need Picc line ambulate 08/20/17- GI evaluation noted- on IV atbx- distention of abd same or worse will try to give some contrast via NG and rescan pt- no IV contrast considering abd exploration- will also discuss with GI 08/19/17- Persistent distention- ? gastric, ? bowel- atypical for mechanical sbo - will have NG placed, check labs, will possibly need contrast study but will not tolerate po- ask GI to see . may come explor lap if does not resolve 08/18/17- will try full liquids- nephrology checking on pt will cont to follow progress
[2017-08-30] MEDS ORDERED: MINERAL OIL 30 ML UDC PO ONE (07:15)
[2017-08-30 08:04] VITALS: BP 150/72; PULSE 72; TEMP 37.3; O2SAT 96
[2017-08-30] MEDS: AMLODIPINE BESYLATE 5 MG TAB PO SCH (08:24)
[2017-08-30] MEDS: CARVEDILOL 12.5 MG TAB PO SCH ×2 (08:24→22:16)
[2017-08-30] MEDS: SENNA 8.8 MG/5 ML UDP PO SCH ×2 (08:24→21:00)
[2017-08-30] MEDS: INSULIN GLARGINE SOLOSTAR 100 UNITS/ML 3 ML PEN SC SCH (08:26)
[2017-08-30 08:40] LABS: INR 1.1 (0.9-1.1); PTT PATIENT 26.4 SECONDS (21.0-31.0)
--- NOTE | 2017-08-30 10:25 | Nephrology Progress Note ---
Nephrology Progress Note Date of Service Aug 30, 2017. Chief Complaint Follow-up for acute kidney injury with history of chronic kidney disease. Princess Ibarra was seen and examined in her room this morning. She remained clinically stable, denies any the the shortness of breath, chest pain or abdominal discomfort. Renal function stable creatinine 2.5 at baseline. Blood pressure acceptable non-oliguric. Started on soft diet this am and seems to be tolerating well. Review of Systems A complete review of systems was performed. Pertinent positives are noted above. All other systems are negative. Vital Signs Last 8 Hrs Date Time Temp Pulse Resp B/P (MAP) Pulse Ox O2 Delivery O2 Flow Rate FiO2 08/30/17 08:04 37.3 72 19 150/72 (98) 96 Room Air Last Recorded Weight Weight (Kilograms): 59.600 Physical Exam GENERAL: Middle-aged transgender female, AAA x 3, pleasant, not in any distress. NECK: Supple, no JVD. RESPIRATORY: Normal breathing efforts, no accessory muscle use, clear to auscultation bilaterally, no wheezes or rales. CARDIOVASCULAR: S1, S2 normal, rate rhythm regular. EXTREMITY: No lower extremity edema NEURO: speech fluent. PSYCHIATRY: Normal mood and judgment Family History Diabetes mellitus Hypertension Social History Smokeless Tobacco Use: No Alcohol Use: none Drug Use: none Marital Status: single Housing Status: other ([facility]) Occupation: unemployed Laboratory Results Past 24 Hours 08/30/17 05:38 Red Blood Count 2.35, Mean Corpuscular Volume 94.0, Mean Corpuscular Hemoglobin 31.5, Mean Corpuscular Hemoglobin Concent 33.5, Mean Platelet Volume 11.1, Neutrophils (%) (Auto) 79.3, Lymphocytes (%) (Auto) 12.1, Monocytes (%) (Auto) 6.3, Eosinophils (%) (Auto) 1.7, Basophils (%) (Auto) 0.2, Neutrophils # (Auto) 9.87, Lymphocytes # (Auto) 1.51, Monocytes # (Auto) 0.78, Eosinophils # (Auto) 0.21, Basophils # (Auto) 0.02 08/30/17 05:38 Test 08/29/17 12:04 08/29/17 12:11 08/29/17 18:04 08/29/17 18:06 Bedside Glucose 150 mg/dl (70-99) 151 mg/dl (70-99) 473 mg/dl (70-99) 104 mg/dl (70-99) Test 08/29/17 23:53 08/30/17 05:38 08/30/17 07:50 Bedside Glucose 137 mg/dl (70-99) White Blood Count 12.44 K/uL (4.8-10.8) Red Blood Count 2.35 M/uL (4.7-6.1) Hemoglobin 7.4 g/dL (14.0-18.0) Hematocrit 22.1 % (42-52) Mean Corpuscular Volume 94.0 fL (80-100) Mean Corpuscular Hemoglobin 31.5 pg (25-34) Mean Corpuscular Hemoglobin Concent 33.5 g/dl (32-36) Platelet Count 314 K/uL (130-400) Mean Platelet Volume 11.1 fL (7.4-10.4) Neutrophils (%) (Auto) 79.3 % Lymphocytes (%) (Auto) 12.1 % Monocytes (%) (Auto) 6.3 % Eosinophils (%) (Auto) 1.7 % Basophils (%) (Auto) 0.2 % Neutrophils # (Auto) 9.87 K/uL (1.4-6.5) Lymphocytes # (Auto) 1.51 K/uL (1.2-3.4) Monocytes # (Auto) 0.78 K/uL (0.11-0.59) Eosinophils # (Auto) 0.21 K/uL (0-0.5) Basophils # (Auto) 0.02 K/uL (0-0.2) RDW Standard Deviation 46.6 fL (36.4-46.3) RDW Coefficient of Variation 13.8 % (11.5-14.5) Immature Granulocyte % (Auto) 0.4 % Immature Granulocyte # (Auto) 0.05 K/uL (0.00-0.02) Echinocytes 1+ Anion Gap 5.0 mmol/L (3-11) Est Creatinine Clear Calc Drug Dose 25.3 ml/min Estimated GFR () 30.5 Estimated GFR (Non- 26.3 BUN/Creatinine Ratio 22.4 (10-20) Calcium Level 7.6 mg/dl (8.5-10.1) Allergies Coded Allergies: Penicillins (Verified Allergy, Intermediate, UNKNOWN, 08/17/17) Medications Current Inpatient Medications Medications (Trade) Dose Ordered Sig/Carlin Route Start Time Stop Time Status Last Admin Dose Admin Acetaminophen (Tylenol Tab) 650 mg Q4H PRN PO 08/17/17 13:45 09/16/17 13:44 08/29/17 07:46 650 MG Al Hydrox/Mg Hydrox/Simethicone (Maalox Max Susp) 15 ml Q4H PRN PO 08/17/17 13:45 09/16/17 13:44 08/18/17 21:37 15 ML Magnesium Hydroxide (Milk Of Magnesia Susp) 30 ml Q6H PRN PO 08/17/17 13:45 09/16/17 13:44 Polyethylene (Miralax Powder Packet) 17 gm DAILY PRN PO 08/17/17 15:00 09/16/17 14:59 Ondansetron HCl (Zofran Inj) 4 mg Q6H PRN IV 08/17/17 13:45 09/16/17 13:44 08/23/17 05:47 4 MG Glucose (Glucose 40% Gel) 15-30 GRAMS 15 GRAMS... UD PRN PO 08/17/17 13:45 09/16/17 13:44 Glucose (Glucose Chew Tab) 4-8 Tablets 4 Tabl... UD PRN PO 08/17/17 13:45 09/16/17 13:44 Dextrose (Dextrose 50% 50ML Syringe) 25-50ML OF 50% DW IV FOR... UD PRN IV 08/17/17 13:45 09/16/17 13:44 Glucagon (Glucagon Inj) 1 mg UD PRN SQ 08/17/17 13:45 09/16/17 13:44 Latanoprost (Xalatan Oph Soln) 1 drops HS OPB 08/17/17 21:00 09/16/17 20:59 08/29/17 22:07 1 DROPS Atorvastatin Calcium (Lipitor Tab) 40 mg QAM PO 08/18/17 09:00 09/17/17 08:59 Future Hold 08/18/17 09:03 40 MG Carvedilol (Coreg Tab) 18.75 mg BID PO 08/17/17 21:00 09/16/17 20:59 08/29/17 22:07 18.75 MG Finasteride (Proscar Tab) 5 mg DAILY PO 08/18/17 09:00 09/17/17 08:59 Future Hold 08/18/17 09:03 5 MG Non-Formulary Medication (Darunavir Ethanolate (Prezista)) 800 mg HS PO 08/17/17 21:00 09/16/17 20:59 UNV Elvitegravir/ Cobicis/Emtricit/ Tenof (Genvoya [phone] Mg) 1 tab DAILY PO 08/18/17 09:00 09/17/17 08:59 Future Hold 08/18/17 09:17 1 TAB Morphine Sulfate (MoRPHine SULFATE INJ) 4 mg Q4H PRN IV 08/17/17 14:15 08/31/17 14:14 08/18/17 21:41 4 MG Famotidine 20 mg/ Syringe 5 ml @ 2.5 mls/min Q12H IV 08/18/17 19:00 09/17/17 18:59 08/30/17 05:57 2.5 MLS/MIN Zolpidem Tartrate (Ambien Tab) 5 mg HS PRN PO 08/18/17 22:00 09/17/17 21:59 Future Hold 08/18/17 23:16 5 MG Hydralazine HCl (HydrALAZINE INJ) 10 mg Q6H PRN IV. 08/19/17 10:30 09/18/17 10:29 08/26/17 16:39 10 MG Ciprofloxacin (Consult) 1 ea UD PRN N/A 08/19/17 14:15 09/18/17 14:14 Menthol (Nice Nory) 1 nory Q1H PRN PO 08/19/17 18:45 09/18/17 18:44 08/19/17 18:53 1 NORY Albuterol/ Ipratropium (Duoneb) 3 ml Q6H PRN INH 08/20/17 12:00 09/18/17 11:59 08/20/17 19:58 3 ML Hydromorphone HCl (Dilaudid Inj) 0.5 mg Q3H PRN IV 08/20/17 13:30 09/03/17 13:29 08/24/17 19:17 0.5 MG Hydromorphone HCl (Dilaudid Inj) 1 mg Q3H PRN IV 08/20/17 13:30 09/03/17 13:29 08/25/17 15:54 1 MG Amlodipine Besylate (Norvasc Tab) 10 mg QAM PO 08/23/17 09:00 09/22/17 08:59 08/29/17 07:46 10 MG Dextrose 1,000 ml @ 0 mls/hr Q0M PRN IV 08/23/17 16:00 09/22/17 15:59 Miscellaneous Information (Pharmacy Tpn/ Ppn Consult Active) 1 ea UD PRN N/A 08/23/17 07:00 09/22/17 06:59 Insulin Aspart (novoLOG ASPART) SLIDING SCALE If C... Q6 SC 08/24/17 00:00 09/21/17 17:14 08/30/17 05:59 1 UNITS Metoclopramide HCl (Reglan Inj) 10 mg Q6 IV. 08/24/17 06:30 09/23/17 06:29 08/30/17 05:57 10 MG Senna (Senokot Syrup) 8.8 mg BID PO 08/24/17 09:00 09/23/17 08:59 08/27/17 08:38 8.8 MG Heparin Sodium (Porcine) (Heparin 10 Unit/ ml 5 ml Flush) 5 ml PRN PRN FLUSH 08/25/17 02:15 09/24/17 02:14 08/30/17 05:57 5 ML Insulin Glargine (Lantus Solostar Pen) 8 units QAM SC 08/28/17 09:00 09/27/17 08:59 08/29/17 07:44 8 UNITS Nutrition (Parenteral) 0 ml @ 0 mls/hr TODAY@1600 IV 08/29/17 16:00 08/30/17 15:59 08/29/17 15:27 0 MLS/HR Impression (1) Acute kidney injury (2) CKD (chronic kidney disease), stage III (3) SBO (small bowel obstruction) (4) Proteinuria (5) Anemia (6) HTN (hypertension) (7) HIV (human immunodeficiency virus infection) Stacey has a past medical history significant for HTN, CKD and HIV. She was admitted to the hospital with SBO. She has stage III CKD w/ baseline creatinine 2.0 - 2.5. LEEROY was most likely ATN related to dehydration and small- bowel obstruction. CT abdomen & pelvis was negative for hydronephrosis. CKD is likely related to hypertensive/diabetic nephropathy but possibility for intrinsic glomerular disease such as FSGS with HIV or nephropathy from anti- retroviral medication remains. Patient is s/p exploratory laparotomy 08/20/2017: abdominal abscesses from ruptured appendix. Recommendations --acute kidney injury resolved, creatinine has been stable around 2.5 which is close to her baseline. Remain non-oliguric, blood pressure acceptable. -- Stable metabolic acidosis related to CKD. Recommend increasing NaHCO3 in PPN if possible -- Peritoneal fluid culture w/ Pseudomonas sensitive to Cipro -- Patient has mild leukocytosis -- On Cipro / Flagyl as per ID -- Hgb trending down. Patient denies overt blood loss. Will follow
[2017-08-30 11:44] LABS: PHOSPHORUS 2.7 mg/dl (2.5-4.9)
[2017-08-30 12:18] LABS: HEMATOCRIT 23.7 % (42-52); HEMOGLOBIN 8.1 g/dL (14.0-18.0)
--- NOTE | 2017-08-30 13:11 | Hospitalist Progress Note ---
Hospitalist Progress Note Date of Service Aug 30, 2017. (Madelyn Buckley ., PAGenetC) Subjective Pt evaluation today including: conversation w/ patient, physical exam, lab review, review of inpatient medication list Voiding: no voiding problems Patient resting in bed. Diet advanced to full liquid diet as per Dr. Elizabeth- tolerated well. No N/V. Patient is happy about JAKOB drain removal today. +BMs. No abdominal pain. Patient denies any fever, chills, sweats, lightheadedness, dizziness, vision changes, CP, palpitations, edema, SOB, wheezing, cough, abdominal pain, nausea, vomiting, diarrhea, urinary symptoms, melena, numbness/tingling, weakness, muscle/joint pain, anxiety/depression, active bleeding, or new skin discoloration/changes. (Madelyn Buckley, DAO-C) Medications Current Inpatient Medications Medications (Trade) Dose Ordered Sig/Carlin Route Start Time Stop Time Status Last Admin Dose Admin Acetaminophen (Tylenol Tab) 650 mg Q4H PRN PO 08/17/17 13:45 09/16/17 13:44 08/29/17 07:46 650 MG Al Hydrox/Mg Hydrox/Simethicone (Maalox Max Susp) 15 ml Q4H PRN PO 08/17/17 13:45 09/16/17 13:44 08/18/17 21:37 15 ML Magnesium Hydroxide (Milk Of Magnesia Susp) 30 ml Q6H PRN PO 08/17/17 13:45 09/16/17 13:44 Polyethylene (Miralax Powder Packet) 17 gm DAILY PRN PO 08/17/17 15:00 09/16/17 14:59 Ondansetron HCl (Zofran Inj) 4 mg Q6H PRN IV 08/17/17 13:45 09/16/17 13:44 08/23/17 05:47 4 MG Glucose (Glucose 40% Gel) 15-30 GRAMS 15 GRAMS... UD PRN PO 08/17/17 13:45 09/16/17 13:44 Glucose (Glucose Chew Tab) 4-8 Tablets 4 Tabl... UD PRN PO 08/17/17 13:45 09/16/17 13:44 Dextrose (Dextrose 50% 50ML Syringe) 25-50ML OF 50% DW IV FOR... UD PRN IV 08/17/17 13:45 09/16/17 13:44 Glucagon (Glucagon Inj) 1 mg UD PRN SQ 08/17/17 13:45 09/16/17 13:44 Latanoprost (Xalatan Oph Soln) 1 drops HS OPB 08/17/17 21:00 09/16/17 20:59 08/29/17 22:07 1 DROPS Atorvastatin Calcium (Lipitor Tab) 40 mg QAM PO 08/18/17 09:00 09/17/17 08:59 Future Hold 08/18/17 09:03 40 MG Carvedilol (Coreg Tab) 18.75 mg BID PO 08/17/17 21:00 09/16/17 20:59 08/30/17 08:24 18.75 MG Finasteride (Proscar Tab) 5 mg DAILY PO 08/18/17 09:00 09/17/17 08:59 Future Hold 08/18/17 09:03 5 MG Non-Formulary Medication (Darunavir Ethanolate (Prezista)) 800 mg HS PO 08/17/17 21:00 09/16/17 20:59 UNV Elvitegravir/ Cobicis/Emtricit/ Tenof (Genvoya [id number] Mg) 1 tab DAILY PO 08/18/17 09:00 09/17/17 08:59 Future Hold 08/18/17 09:17 1 TAB Morphine Sulfate (MoRPHine SULFATE INJ) 4 mg Q4H PRN IV 08/17/17 14:15 08/31/17 14:14 08/18/17 21:41 4 MG Famotidine 20 mg/ Syringe 5 ml @ 2.5 mls/min Q12H IV 08/18/17 19:00 09/17/17 18:59 08/30/17 05:57 2.5 MLS/MIN Zolpidem Tartrate (Ambien Tab) 5 mg HS PRN PO 08/18/17 22:00 09/17/17 21:59 Future Hold 08/18/17 23:16 5 MG Hydralazine HCl (HydrALAZINE INJ) 10 mg Q6H PRN IV. 08/19/17 10:30 09/18/17 10:29 08/26/17 16:39 10 MG Ciprofloxacin (Consult) 1 ea UD PRN N/A 08/19/17 14:15 09/18/17 14:14 Menthol (Nice Nory) 1 nory Q1H PRN PO 08/19/17 18:45 09/18/17 18:44 08/19/17 18:53 1 NORY Albuterol/ Ipratropium (Duoneb) 3 ml Q6H PRN INH 08/20/17 12:00 09/18/17 11:59 08/20/17 19:58 3 ML Hydromorphone HCl (Dilaudid Inj) 0.5 mg Q3H PRN IV 08/20/17 13:30 09/03/17 13:29 08/24/17 19:17 0.5 MG Hydromorphone HCl (Dilaudid Inj) 1 mg Q3H PRN IV 08/20/17 13:30 09/03/17 13:29 08/25/17 15:54 1 MG Amlodipine Besylate (Norvasc Tab) 10 mg QAM PO 08/23/17 09:00 09/22/17 08:59 08/30/17 08:24 10 MG Dextrose 1,000 ml @ 0 mls/hr Q0M PRN IV 08/23/17 16:00 09/22/17 15:59 Miscellaneous Information (Pharmacy Tpn/ Ppn Consult Active) 1 [facility] PRN N/A 08/23/17 07:00 09/22/17 06:59 Insulin Aspart (novoLOG ASPART) SLIDING SCALE If C... Q6 SC 08/24/17 00:00 09/21/17 17:14 08/30/17 12:35 1 UNITS Metoclopramide HCl (Reglan Inj) 10 mg Q6 IV. 08/24/17 06:30 09/23/17 06:29 08/30/17 05:57 10 MG Senna (Senokot Syrup) 8.8 mg BID PO 08/24/17 09:00 09/23/17 08:59 08/27/17 08:38 8.8 MG Heparin Sodium (Porcine) (Heparin 10 Unit/ ml 5 ml Flush) 5 ml PRN PRN FLUSH 08/25/17 02:15 09/24/17 02:14 08/30/17 05:57 5 ML Insulin Glargine (Lantus Solostar Pen) 8 units QAM SC 08/28/17 09:00 09/27/17 08:59 08/30/17 08:26 8 UNITS Nutrition (Parenteral) 0 ml @ 0 mls/hr TODAY@1600 IV 08/29/17 16:00 08/30/17 15:59 08/29/17 15:27 0 MLS/HR Nutrition (Parenteral) 0 ml @ 0 mls/hr TODAY@1600 IV 08/30/17 16:00 08/31/17 15:59 (Madelyn Buckley PA-C) Objective Vital Signs Date Time Temp Pulse Resp B/P (MAP) Pulse Ox O2 Delivery O2 Flow Rate FiO2 08/30/17 08:30 Room Air 08/30/17 08:04 37.3 72 19 150/72 (98) 96 Room Air 08/29/17 23:50 37.4 71 18 139/62 (87) 98 Room Air 08/29/17 23:48 Room Air 08/29/17 22:04 68 156/70 (98) 08/29/17 16:15 37.5 70 18 149/77 (101) 99 Room Air 08/29/17 15:30 Room Air (Madelyn Buckley, DAO-C) Physical Exam General Appearance: no apparent distress Eyes: normal inspection, PERRL ENT: hearing grossly normal Neck: supple Respiratory/Chest: lungs clear, no respiratory distress, no accessory muscle use Cardiovascular: regular rate, rhythm Abdomen: normal bowel sounds, non tender, + distended, + pertinent finding ( incision site bandage C/D/I ) Extremities: no pedal edema, no calf tenderness Neurologic/Psychiatric: alert, normal mood/affect, oriented x 3 Skin: normal color, warm/dry, no rash (Madelyn Buckley ., PA-C) Laboratory Results Last 24 Hours Test 08/29/17 18:04 08/29/17 18:06 08/29/17 23:53 08/30/17 05:38 Bedside Glucose 473 mg/dl 104 mg/dl 137 mg/dl White Blood Count 12.44 K/uL Red Blood Count 2.35 M/uL Hemoglobin 7.4 g/dL Hematocrit 22.1 % Mean Corpuscular Volume 94.0 fL Mean Corpuscular Hemoglobin 31.5 pg Mean Corpuscular Hemoglobin Concent 33.5 g/dl Platelet Count 314 K/uL Mean Platelet Volume 11.1 fL Neutrophils (%) (Auto) 79.3 % Lymphocytes (%) (Auto) 12.1 % Monocytes (%) (Auto) 6.3 % Eosinophils (%) (Auto) 1.7 % Basophils (%) (Auto) 0.2 % Neutrophils # (Auto) 9.87 K/uL Lymphocytes # (Auto) 1.51 K/uL Monocytes # (Auto) 0.78 K/uL Eosinophils # (Auto) 0.21 K/uL Basophils # (Auto) 0.02 K/uL RDW Standard Deviation 46.6 fL RDW Coefficient of Variation 13.8 % Immature Granulocyte % (Auto) 0.4 % Immature Granulocyte # (Auto) 0.05 K/uL Echinocytes 1+ Sodium Level 139 mmol/L Potassium Level 4.8 mmol/L Chloride Level 114 mmol/L Carbon Dioxide Level 20 mmol/L Anion Gap 5.0 mmol/L Blood Urea Nitrogen 56 mg/dl Creatinine 2.50 mg/dl Est Creatinine Clear Calc Drug Dose 25.3 ml/min Estimated GFR () 30.5 Estimated GFR (Non- 26.3 BUN/Creatinine Ratio 22.4 Random Glucose 133 mg/dl Calcium Level 7.6 mg/dl Test 08/30/17 07:50 08/30/17 11:53 Prothrombin Time 11.4 SECONDS Prothromb Time International Ratio 1.1 Activated Partial Thromboplast Time 26.4 SECONDS Partial Thromboplastin Ratio 1.0 Phosphorus Level 2.7 mg/dl Magnesium Level 2.1 mg/dl Albumin 1.6 gm/dl Hemoglobin 8.1 g/dL Hematocrit 23.7 % (Madelyn Buckley, PA-C) Assessment and Plan 61 y/o transgender female with a history of HTN, HLD, sick sinus syndrome s/p pacemaker 04/26/17, DM II, CKD stage III, anemia of chronic disease, and HIV who presented to the ED on 08/[address] [facility] with abdominal pain, nausea and vomiting. Pt afebrile, VSS on arrival. O2 sat did drop to 85%, placed on 2L NC. CXR with possible left base consolidation vs atelectasis. CT abdomen/ pelvis with distal small bowel obstructive change and inflammatory change of the appendix with associated appendicolith. Creatinine 2.50, elevated above baseline. POC lactic acid 2.15. LFTs elevated. s/p ex-lap on 08/[address] Elizabeth for SBO, finding ruptured appendicitis with abscess formation: - NG tube placed on 08/19- removed on 08/22 and diet advanced to clears- did not tolerated and NG replaced on 08/23- placed PICC line and started TPN on 08/24 -- Removed NG tube 08/27, SLOWLY advancing diet- advance to full liquid today - Treated w/ IVF @ 100 ml/hr while NPO- ECHO from 04/2017 w/ preserved EF - Morphine 4 mg IV q4h, IV Dilaudid PRN for pain management - Abdominal cultures growing Pseudomonas/anaerobic gram + bacilli- sensitives reviewed- IV Cipro + Flagyl- completed x10 days- ID following - General surgery consulted, appreciate recommendations- surgical management as per surgery - GI consulted, appreciate recommendations Acute respiratory and metabolic acidosis secondary to LEEROY- RESOLVED: - ICU due to postop anesthesia complications/renal failure- STABLE- transferred to tele on 08/21 and med/surg on 08/22 - DuoNebs QID and PRN - CXR on 08/23- PNA vs atelectasis -- Likely atelectasis due to no cough/sputum production, fever/chills, or WBC - however, IV Cipro coverage as above -- Encourage incentive spirometer, ambulation, OOB in chair QS - Nephrology following LEEROY on CKD stage II, likely secondary to ATN- baseline all source intelligence 2.0-2.5- all source intelligence 2.50 today, anemia of chronic disease- baseline hgb 10: - Avoid nephrotoxic agents and renally dose medications as appropriate - Follow PRP and UO - Nephrology consulted, appreciate recommendations- no need for acute HD at this time - H&H- 8.1 today- continue to follow and transfuse PRN hgb < 7.0 or symptomatic HTN, HLD, sick sinus syndrome s/p pacemaker 04/26/17: - Lipitor 40 mg PO qd held until tolerating full PO intake - Continue Coreg 18.75 mg PO BID and Norvasc 10 mg daily - IV Hydralazine PRN T2DM- last HgbA1c 5.0%: - Hold Glipizide while inpatient - Hyperglycemia- Lantus 8 u daily and adjust PRN - BSG ACHS and ISS HIV: Continue Genvoya 1 tab PO qd and Prezista 800 mg PO HS once tolerating full PO intake BPH: Hold Proscar 5 mg PO qd until tolerating full PO intake Glaucoma: Continue Latanoprost drops GI prophylaxis: IV Pepcid DVT prophylaxis: Heparin SQ BID held due to worsening anemia; encouraged ambulation Code Status: LEVEL I, FULL Dispo: From [facility] ([email or web address], MARGE) I personally interviewed and examined the patient. I agree with history of present illness and physical exam mentioned above, I also performed my own history taking and examination. Past medical history and review of system has been obtained by myself I reviewed all pertinent labs and studies Reviewed current medications I discussed and formulated of the assessment and plan mentioned above with Miss Buckley Please refer to the Summary mentioned below. 61 year old man transgender to female with history of hypertension, dyslipidemia , sick sinus syndrome status post pacemaker, chronic kidney disease stage III, chronic anemia secondary to chronic disease, HIV on HAART presented to the hospital with abdominal pain nausea and vomiting secondary to ruptured appendix status post exploratory laparoscopy and appendectomy. Currently improving slowly. That has been improved and tolerated well. Abdominal cultures grew Pseudomonas/anaerobic gram + bacilli-, completed course of Cipro/Flagyl Continue TPN until patient oral intake sufficient Patient also had acute kidney injury on admission, improved Continue HAAART medications General Appearance: not in acute distress Eyes: normal Sclerae, extraocular muscle intact ENT: hearing grossly normal Neck: supple Respiratory/Chest: normal air entry bilateral ,no respiratory distress, no accessory muscle use Cardiovascular: regular rate, rhythm, no murmur Abdomen: non tender, soft, no masses Extremities: no edema Neurologic/Psychiatric: Awake alert oriented times place and person moves all extremities sensation intact cranial nerves II-12 appear to be intact Skin: normal color, warm/dry, no rash Heri Duke MD, [facility] hospitalist group (Heri Urias MD)
[2017-08-30 15:42] VITALS: BP 148/81; PULSE 69; TEMP 36.7; O2SAT 99
[2017-08-30] MEDS ORDERED: CUSTOM CENTRAL PN 1 BAG IV SCH (16:00)
[2017-08-30] MEDS ORDERED: ESTRADIOL TRANSDERMAL SYSTEM 0.1 MG TDSY TD SCH (18:00)
--- NOTE | 2017-08-30 20:44 | Infectious Disease Progress Nt ---
Progress Note Date of Service Aug 30, 2017. Subjective Pt evaluation today including: conversation w/ patient, physical exam, chart review, lab review, review of studies, conversation w/ wireless consultant, review of inpatient medication list Patient feeling better today. NG tube now out. Abdominal pain improved. No fever. All Other Systems: Reviewed and Negative Medications Current Inpatient Medications Medications (Trade) Dose Ordered Sig/Carlin Route Start Time Stop Time Status Last Admin Dose Admin Acetaminophen (Tylenol Tab) 650 mg Q4H PRN PO 08/17/17 13:45 09/16/17 13:44 08/29/17 07:46 650 MG Al Hydrox/Mg Hydrox/Simethicone (Maalox Max Susp) 15 ml Q4H PRN PO 08/17/17 13:45 09/16/17 13:44 08/18/17 21:37 15 ML Magnesium Hydroxide (Milk Of Magnesia Susp) 30 ml Q6H PRN PO 08/17/17 13:45 09/16/17 13:44 Polyethylene (Miralax Powder Packet) 17 gm DAILY PRN PO 08/17/17 15:00 09/16/17 14:59 Ondansetron HCl (Zofran Inj) 4 mg Q6H PRN IV 08/17/17 13:45 09/16/17 13:44 08/23/17 05:47 4 MG Glucose (Glucose 40% Gel) 15-30 GRAMS 15 GRAMS... UD PRN PO 08/17/17 13:45 09/16/17 13:44 Glucose (Glucose Chew Tab) 4-8 Tablets 4 Tabl... UD PRN PO 08/17/17 13:45 09/16/17 13:44 Dextrose (Dextrose 50% 50ML Syringe) 25-50ML OF 50% DW IV FOR... UD PRN IV 08/17/17 13:45 09/16/17 13:44 Glucagon (Glucagon Inj) 1 mg UD PRN SQ 08/17/17 13:45 09/16/17 13:44 Latanoprost (Xalatan Oph Soln) 1 drops HS OPB 08/17/17 21:00 09/16/17 20:59 08/29/17 22:07 1 DROPS Atorvastatin Calcium (Lipitor Tab) 40 mg QAM PO 08/18/17 09:00 09/17/17 08:59 Future Hold 08/18/17 09:03 40 MG Carvedilol (Coreg Tab) 18.75 mg BID PO 08/17/17 21:00 09/16/17 20:59 08/30/17 08:24 18.75 MG Finasteride (Proscar Tab) 5 mg DAILY PO 08/18/17 09:00 09/17/17 08:59 Future Hold 08/18/17 09:03 5 MG Non-Formulary Medication (Darunavir Ethanolate (Prezista)) 800 mg HS PO 08/17/17 21:00 09/16/17 20:59 UNV Elvitegravir/ Cobicis/Emtricit/ Tenof (Genvoya [id number] Mg) 1 tab DAILY PO 08/18/17 09:00 09/17/17 08:59 Future Hold 08/18/17 09:17 1 TAB Morphine Sulfate (MoRPHine SULFATE INJ) 4 mg Q4H PRN IV 08/17/17 14:15 08/31/17 14:14 08/18/17 21:41 4 MG Famotidine 20 mg/ Syringe 5 ml @ 2.5 mls/min Q12H IV 08/18/17 19:00 09/17/17 18:59 08/30/17 19:02 2.5 MLS/MIN Zolpidem Tartrate (Ambien Tab) 5 mg HS PRN PO 08/18/17 22:00 09/17/17 21:59 Future Hold 08/18/17 23:16 5 MG Hydralazine HCl (HydrALAZINE INJ) 10 mg Q6H PRN IV. 08/19/17 10:30 09/18/17 10:29 08/26/17 16:39 10 MG Ciprofloxacin (Consult) 1 ea UD PRN N/A 08/19/17 14:15 09/18/17 14:14 Menthol (Nice Royce) 1 royce Q1H PRN PO 08/19/17 18:45 09/18/17 18:44 08/19/17 18:53 1 ROYCE Albuterol/ Ipratropium (Duoneb) 3 ml Q6H PRN INH 08/20/17 12:00 09/18/17 11:59 08/20/17 19:58 3 ML Hydromorphone HCl (Dilaudid Inj) 0.5 mg Q3H PRN IV 08/20/17 13:30 09/03/17 13:29 08/24/17 19:17 0.5 MG Hydromorphone HCl (Dilaudid Inj) 1 mg Q3H PRN IV 08/20/17 13:30 09/03/17 13:29 08/25/17 15:54 1 MG Amlodipine Besylate (Norvasc Tab) 10 mg QAM PO 08/23/17 09:00 09/22/17 08:59 08/30/17 08:24 10 MG Dextrose 1,000 ml @ 0 mls/hr Q0M PRN IV 08/23/17 16:00 09/22/17 15:59 Miscellaneous Information (Pharmacy Tpn/ Ppn Consult Active) 1 ea UD PRN N/A 08/23/17 07:00 09/22/17 06:59 Insulin Aspart (novoLOG ASPART) SLIDING SCALE If C... Q6 SC 08/24/17 00:00 09/21/17 17:14 08/30/17 18:44 1 UNITS Metoclopramide HCl (Reglan Inj) 10 mg Q6 IV. 08/24/17 06:30 09/23/17 06:29 08/30/17 18:26 10 MG Senna (Senokot Syrup) 8.8 mg BID PO 08/24/17 09:00 09/23/17 08:59 08/27/17 08:38 8.8 MG Heparin Sodium (Porcine) (Heparin 10 Unit/ ml 5 ml Flush) 5 ml PRN PRN FLUSH 08/25/17 02:15 09/24/17 02:14 08/30/17 19:02 5 ML Insulin Glargine (Lantus Solostar Pen) 8 units QAM SC 08/28/17 09:00 09/27/17 08:59 08/30/17 08:26 8 UNITS Nutrition (Parenteral) 0 ml @ 0 mls/hr TODAY@1600 IV 08/30/17 16:00 08/31/17 15:59 08/30/17 15:51 0 MLS/HR Estradiol (Estradiol 0.1 Mg Transdermal) 0.1 mg Mo@0900 TD 1/22/18 18:00 09/29/17 17:59 08/30/17 18:37 0.1 MG Miscellaneous (Remove Patch) 1 ea Mo@0859 N/A 08/30/17 17:59 09/29/17 17:58 Objective Vital Signs Date Time Temp Pulse Resp B/P (MAP) Pulse Ox O2 Delivery O2 Flow Rate FiO2 08/30/17 15:42 36.7 69 18 148/81 (103) 99 Room Air 08/30/17 15:30 Room Air 08/30/17 08:30 Room Air 08/30/17 08:04 37.3 72 19 150/72 (98) 96 Room Air 08/29/17 23:50 37.4 71 18 139/62 (87) 98 Room Air 08/29/17 23:48 Room Air 08/29/17 22:04 68 156/70 (98) Physical Exam General Appearance: WD/WN, no apparent distress Eyes: normal inspection, EOMI, sclerae normal ENT: normal ENT inspection, pharynx normal Neck: supple, no adenopathy, thyroid normal, trachea midline Respiratory/Chest: chest non-tender, lungs clear, normal breath sounds, no respiratory distress Cardiovascular: regular rate, rhythm, no gallop, no murmur Abdomen: normal bowel sounds, soft, no organomegaly, + tenderness Extremities: non-tender, no calf tenderness Neurologic/Psychiatric: alert, oriented x 3 Skin: normal color, warm/dry, no rash Lymphatic: no adenopathy Laboratory Results Last 24 Hours Test 08/29/17 23:53 08/30/17 05:38 08/30/17 05:54 08/30/17 07:50 Bedside Glucose 137 mg/dl 146 mg/dl White Blood Count 12.44 K/uL Red Blood Count 2.35 M/uL Hemoglobin 7.4 g/dL Hematocrit 22.1 % Mean Corpuscular Volume 94.0 fL Mean Corpuscular Hemoglobin 31.5 pg Mean Corpuscular Hemoglobin Concent 33.5 g/dl Platelet Count 314 K/uL Mean Platelet Volume 11.1 fL Neutrophils (%) (Auto) 79.3 % Lymphocytes (%) (Auto) 12.1 % Monocytes (%) (Auto) 6.3 % Eosinophils (%) (Auto) 1.7 % Basophils (%) (Auto) 0.2 % Neutrophils # (Auto) 9.87 K/uL Lymphocytes # (Auto) 1.51 K/uL Monocytes # (Auto) 0.78 K/uL Eosinophils # (Auto) 0.21 K/uL Basophils # (Auto) 0.02 K/uL RDW Standard Deviation 46.6 fL RDW Coefficient of Variation 13.8 % Immature Granulocyte % (Auto) 0.4 % Immature Granulocyte # (Auto) 0.05 K/uL Echinocytes 1+ Sodium Level 139 mmol/L Potassium Level 4.8 mmol/L Chloride Level 114 mmol/L Carbon Dioxide Level 20 mmol/L Anion Gap 5.0 mmol/L Blood Urea Nitrogen 56 mg/dl Creatinine 2.50 mg/dl Est Creatinine Clear Calc Drug Dose 25.3 ml/min Estimated GFR () 30.5 Estimated GFR (Non- 26.3 BUN/Creatinine Ratio 22.4 Random Glucose 133 mg/dl Calcium Level 7.6 mg/dl Prothrombin Time 11.4 SECONDS Prothromb Time International Ratio 1.1 Activated Partial Thromboplast Time 26.4 SECONDS Partial Thromboplastin Ratio 1.0 Phosphorus Level 2.7 mg/dl Magnesium Level 2.1 mg/dl Albumin 1.6 gm/dl Test 08/30/17 11:53 Hemoglobin 8.1 g/dL Hematocrit 23.7 % Assessment and Plan 61-year-old transgender female with well controlled HIV infection now status post acute appendicitis with rupture with cultures growing Pseudomonas aeruginosa and anaerobic gram-positive bacilli. Given patient's penicillin allergy and good clinical response, I think that she can be continued on ciprofloxacin and metronidazole which could be transitioned to oral therapy as soon as she is able to take pills. She should also start at that time back on her baseline HIV medications as she has been well controlled. Will follow.
[2017-08-30] MEDS: LATANOPROST 0.005% OP SOLN 2.5 ML BTL OPB SCH (21:00)
[2017-08-30 22:15] VITALS: BP 153/72; PULSE 74
[2017-08-30] MEDS: ACETAMINOPHEN 325 MG TAB PO PRN (22:16)
[2017-08-30 23:55] VITALS: BP 146/65; PULSE 74; TEMP 37.1; O2SAT 98
[2017-08-31] VITALS (8 sets, daily range): BP systolic 143–156; BP diastolic 70–76; PULSE 67–79; TEMP 37.1–37.3; O2SAT 96–99
[2017-08-31] MEDS: FAMOTIDINE IV INJ 20 MG in SYRINGE 3 ML IV SCH ×2 (05:50→18:42)
[2017-08-31] MEDS: METOCLOPRAMIDE HCL INJ 5 MG/ML 2 ML VIAL IV. SCH ×4 (05:50→23:41)
[2017-08-31] MEDS: INSULIN ASPART 100 UNITS/ML 3 ML PEN SC SCH ×6 (05:50→21:20)
--- NOTE | 2017-08-31 06:29 | Surgery Progress Note ---
Surgery Progress Note Date of Service Aug 31, 2017. Subjective tolerating full liquids no emesis, + loose bms- feels Tpn causing this Objective Vital Signs: Date Time Temp Pulse Resp B/P (MAP) Pulse Ox O2 Delivery O2 Flow Rate FiO2 08/30/17 23:55 37.1 74 16 146/65 (92) 98 Room Air 08/30/17 23:51 Room Air 08/30/17 22:15 74 153/72 (99) 08/30/17 15:42 36.7 69 18 148/81 (103) 99 Room Air 08/30/17 15:30 Room Air 08/30/17 08:30 Room Air 08/30/17 08:04 37.3 72 19 150/72 (98) 96 Room Air General Appearance: no apparent distress Respiratory/Chest: no respiratory distress Abdomen: + distended Incision(s): intact Laboratory Results: Results Past 24 Hours Test 08/30/17 07:50 08/30/17 11:53 08/30/17 11:55 08/30/17 17:55 Range/Units Prothrombin Time 11.4 9.0-12.0 SECONDS Prothromb Time International Ratio 1.1 0.9-1.1 Activated Partial Thromboplast Time 26.4 21.0-31.0 SECONDS Partial Thromboplastin Ratio 1.0 Phosphorus Level 2.7 2.5-4.9 mg/dl Magnesium Level 2.1 1.8-2.4 mg/dl Albumin 1.6 3.4-5.0 gm/dl Hemoglobin 8.1 14.0-18.0 g/dL Hematocrit 23.7 42-52 % Bedside Glucose 157 138 70-99 mg/dl Test 08/31/17 00:03 08/31/17 05:49 08/31/17 05:56 Range/Units Bedside Glucose 197 111 70-99 mg/dl Assessment & Plan 08/31/17- will advance to low fiber diet- stop Tpn when current bag complete- cont IV atbx for now. check labs- overall making slow progress 08/30/17- slowly improving GI function- Cont Tpn, try full liquids. d/c drain, check H/H, hold SC Heparin. Expect loose bms Continue IV atbx- ID following 08/27/17- some concern for distention and mild ileus but minimal NG output and some bowel function. Tpn helping with edema/protein status. will try to d/c NG and limit po today- very slowly adv diet. may need NG back in if vomits. Dr Wren covering over weekend 08/26/17- some slow improvement- not yet convinced GI activity ready for removal of NG- cont Tpn, try sips of clears w/ NG clamped. increase mobility if possible 08/25/17- intraop cult- pseudomonas- sens to Cipro- discussed with Dr Darnell- cont same for now- ID will see as pt is HIV + 08/25/17- will order Tpn- central w/ picc line, d/c velazquez, leave drain. cont NG as he is still distended. overall some progress but expected to be slow. coughing up loose secretions- cont atbx 08/24/17- ileus not unexpected- ppn ordered- not started- pharmacy notified. Will probably benefit from picc line for addnl calories cont NG, try some Reglan. cont wound care, IV atbx 08/23/17- pt s/p laparotomy , lysis of adhesions, drainage abd abscess appendectomy- at risk for ileus- vomited- check film, clears only if vomits again will need NG- order periph tpn- may need Picc line ambulate 08/20/17- GI evaluation noted- on IV atbx- distention of abd same or worse will try to give some contrast via NG and rescan pt- no IV contrast considering abd exploration- will also discuss with GI 08/19/17- Persistent distention- ? gastric, ? bowel- atypical for mechanical sbo - will have NG placed, check labs, will possibly need contrast study but will not tolerate po- ask GI to see . may come explor lap if does not resolve 08/18/17- will try full liquids- nephrology checking on pt will cont to follow progress 08/30/17- slowly improving GI function- Cont Tpn, try full liquids. d/c drain, check H/H, hold SC Heparin. Expect loose bms Continue IV atbx- ID following 08/27/17- some concern for distention and mild ileus but minimal NG output and some bowel function. Tpn helping with edema/protein status. will try to d/c NG and limit po today- very slowly adv diet. may need NG back in if vomits. Dr Wren covering over weekend 08/26/17- some slow improvement- not yet convinced GI activity ready for removal of NG- cont Tpn, try sips of clears w/ NG clamped. increase mobility if possible 08/25/17- intraop cult- pseudomonas- sens to Cipro- discussed with Dr Darnell- cont same for now- ID will see as pt is HIV + 08/25/17- will order Tpn- central w/ picc line, d/c velazquez, leave drain. cont NG as he is still distended. overall some progress but expected to be slow. coughing up loose secretions- cont atbx 08/24/17- ileus not unexpected- ppn ordered- not started- pharmacy notified. Will probably benefit from picc line for addnl calories cont NG, try some Reglan. cont wound care, IV atbx 08/23/17- pt s/p laparotomy , lysis of adhesions, drainage abd abscess appendectomy- at risk for ileus- vomited- check film, clears only if vomits again will need NG- order periph tpn- may need Picc line ambulate 08/20/17- GI evaluation noted- on IV atbx- distention of abd same or worse will try to give some contrast via NG and rescan pt- no IV contrast considering abd exploration- will also discuss with GI 08/19/17- Persistent distention- ? gastric, ? bowel- atypical for mechanical sbo - will have NG placed, check labs, will possibly need contrast study but will not tolerate po- ask GI to see . may come explor lap if does not resolve 08/18/17- will try full liquids- nephrology checking on pt will cont to follow progress
[2017-08-31 06:49] LABS: HEMATOCRIT 22.9 % (42-52); HEMOGLOBIN 7.8 g/dL (14.0-18.0); MEAN CELL VOLUME 93.9 fL (80-100); MEAN CORPUSCULAR HGB CONC 34.1 g/dl (32-36); MEAN PLATELET VOLUME 11.4 fL (7.4-10.4); PLATELET COUNT 348 K/uL (130-400); RED CELL DISTRIBUTION WIDTH CV 13.6 % (11.5-14.5); RED CELL DISTRIBUTION WIDTH SD 45.7 fL (36.4-46.3); WHITE BLOOD COUNT 10.18 K/uL (4.8-10.8)
[2017-08-31 07:24] LABS: CREATININE 2.26 mg/dl (0.60-1.40); POTASSIUM 4.6 mmol/L (3.5-5.1)
[2017-08-31] MEDS ORDERED: NURSING VERBAL MED ORDER ONE (08:30)
[2017-08-31] MEDS: CARVEDILOL 12.5 MG TAB PO SCH ×2 (08:57→21:04)
[2017-08-31] MEDS: AMLODIPINE BESYLATE 5 MG TAB PO SCH (08:57)
[2017-08-31] MEDS: SENNA 8.8 MG/5 ML UDP PO SCH ×2 (08:57→21:00)
[2017-08-31] MEDS ORDERED: INSULIN GLARGINE SOLOSTAR 100 UNITS/ML 3 ML PEN SC ONE (09:00)
--- NOTE | 2017-08-31 11:33 | Nephrology Progress Note ---
Nephrology Progress Note Date of Service Aug 31, 2017. Chief Complaint Follow-up for acute kidney injury with history of chronic kidney disease. Princess Ibarra Was seen and examined in her room this morning. She has been overall feeling well. Has been tolerating regular diet and plan to discontinue TPN today. Urine output has been decent, electrolyte acceptable, renal function stable at baseline, creatinine 2.3. Blood pressure and volume status acceptable. Review of Systems A complete review of systems was performed. Pertinent positives are noted above. All other systems are negative. Vital Signs Last 8 Hrs Date Time Temp Pulse Resp B/P (MAP) Pulse Ox O2 Delivery O2 Flow Rate FiO2 08/31/17 07:51 37.1 73 16 156/76 (102) 99 Room Air 08/31/17 07:30 Room Air Last Recorded Weight Weight (Kilograms): 59.600 Physical Exam GENERAL: Middle-aged transgender female, AAA x 3, pleasant, not in any distress. NECK: Supple, no JVD. RESPIRATORY: Normal breathing efforts, no accessory muscle use, clear to auscultation bilaterally, no wheezes or rales. CARDIOVASCULAR: S1, S2 normal, rate rhythm regular. EXTREMITY: No lower extremity edema NEURO: speech fluent. PSYCHIATRY: Normal mood and judgment Family History Diabetes mellitus Hypertension Social History Smokeless Tobacco Use: No Alcohol Use: none Drug Use: none Marital Status: single Housing Status: other ([facility]) Occupation: unemployed Laboratory Results Past 24 Hours 08/30/17 11:53 08/31/17 05:56 08/31/17 05:56 Test 08/30/17 11:55 08/30/17 17:55 08/31/17 00:03 08/31/17 05:49 Bedside Glucose 157 mg/dl (70-99) 138 mg/dl (70-99) 197 mg/dl (70-99) 111 mg/dl (70-99) Test 08/31/17 05:56 Red Blood Count 2.44 M/uL (4.7-6.1) Mean Corpuscular Volume 93.9 fL (80-100) Mean Corpuscular Hemoglobin 32.0 pg (25-34) Mean Corpuscular Hemoglobin Concent 34.1 g/dl (32-36) RDW Standard Deviation 45.7 fL (36.4-46.3) RDW Coefficient of Variation 13.6 % (11.5-14.5) Mean Platelet Volume 11.4 fL (7.4-10.4) Anion Gap 5.0 mmol/L (3-11) Est Creatinine Clear Calc Drug Dose 28.0 ml/min Estimated GFR () 34.5 Estimated GFR (Non- 29.8 BUN/Creatinine Ratio 23.0 (10-20) Calcium Level 8.0 mg/dl (8.5-10.1) Phosphorus Level 3.0 mg/dl (2.5-4.9) Magnesium Level 2.0 mg/dl (1.8-2.4) Triglycerides Level 154 mg/dl (0-150) Allergies Coded Allergies: Penicillins (Verified Allergy, Intermediate, UNKNOWN, 08/17/17) Medications Current Inpatient Medications Medications (Trade) Dose Ordered Sig/Carlin Route Start Time Stop Time Status Last Admin Dose Admin Acetaminophen (Tylenol Tab) 650 mg Q4H PRN PO 08/17/17 13:45 09/16/17 13:44 08/30/17 22:16 650 MG Al Hydrox/Mg Hydrox/Simethicone (Maalox Max Susp) 15 ml Q4H PRN PO 08/17/17 13:45 09/16/17 13:44 08/18/17 21:37 15 ML Magnesium Hydroxide (Milk Of Magnesia Susp) 30 ml Q6H PRN PO 08/17/17 13:45 09/16/17 13:44 Polyethylene (Miralax Powder Packet) 17 gm DAILY PRN PO 08/17/17 15:00 09/16/17 14:59 Ondansetron HCl (Zofran Inj) 4 mg Q6H PRN IV 08/17/17 13:45 09/16/17 13:44 08/23/17 05:47 4 MG Glucose (Glucose 40% Gel) 15-30 GRAMS 15 GRAMS... UD PRN PO 08/17/17 13:45 09/16/17 13:44 Glucose (Glucose Chew Tab) 4-8 Tablets 4 Tabl... UD PRN PO 08/17/17 13:45 09/16/17 13:44 Dextrose (Dextrose 50% 50ML Syringe) 25-50ML OF 50% DW IV FOR... UD PRN IV 08/17/17 13:45 09/16/17 13:44 Glucagon (Glucagon Inj) 1 mg UD PRN SQ 08/17/17 13:45 09/16/17 13:44 Latanoprost (Xalatan Oph Soln) 1 drops HS OPB 08/17/17 21:00 09/16/17 20:59 08/30/17 21:00 1 DROPS Atorvastatin Calcium (Lipitor Tab) 40 mg QAM PO 08/18/17 09:00 09/17/17 08:59 Future Hold 08/18/17 09:03 40 MG Carvedilol (Coreg Tab) 18.75 mg BID PO 08/17/17 21:00 09/16/17 20:59 08/31/17 08:57 18.75 MG Finasteride (Proscar Tab) 5 mg DAILY PO 08/18/17 09:00 09/17/17 08:59 Future Hold 08/18/17 09:03 5 MG Non-Formulary Medication (Darunavir Ethanolate (Prezista)) 800 mg HS PO 08/17/17 21:00 09/16/17 20:59 UNV Elvitegravir/ Cobicis/Emtricit/ Tenof (Genvoya [id number] Mg) 1 tab DAILY PO 08/18/17 09:00 09/17/17 08:59 Future Hold 08/18/17 09:17 1 TAB Morphine Sulfate (MoRPHine SULFATE INJ) 4 mg Q4H PRN IV 08/17/17 14:15 08/31/17 14:14 08/18/17 21:41 4 MG Famotidine 20 mg/ Syringe 5 ml @ 2.5 mls/min Q12H IV 08/18/17 19:00 09/17/17 18:59 08/30/17 19:02 2.5 MLS/MIN Zolpidem Tartrate (Ambien Tab) 5 mg HS PRN PO 08/18/17 22:00 09/17/17 21:59 Future Hold 08/18/17 23:16 5 MG Hydralazine HCl (HydrALAZINE INJ) 10 mg Q6H PRN IV. 08/19/17 10:30 09/18/17 10:29 08/26/17 16:39 10 MG Ciprofloxacin (Consult) 1 ea UD PRN N/A 08/19/17 14:15 09/18/17 14:14 Menthol (Nice Nory) 1 nory Q1H PRN PO 08/19/17 18:45 09/18/17 18:44 08/19/17 18:53 1 NORY Albuterol/ Ipratropium (Duoneb) 3 ml Q6H PRN INH 08/20/17 12:00 09/18/17 11:59 08/20/17 19:58 3 ML Hydromorphone HCl (Dilaudid Inj) 0.5 mg Q3H PRN IV 08/20/17 13:30 09/03/17 13:29 08/24/17 19:17 0.5 MG Hydromorphone HCl (Dilaudid Inj) 1 mg Q3H PRN IV 08/20/17 13:30 09/03/17 13:29 08/25/17 15:54 1 MG Amlodipine Besylate (Norvasc Tab) 10 mg QAM PO 08/23/17 09:00 09/22/17 08:59 08/31/17 08:57 10 MG Dextrose 1,000 ml @ 0 mls/hr Q0M PRN IV 08/23/17 16:00 09/22/17 15:59 Miscellaneous Information (Pharmacy Tpn/ Ppn Consult Active) 1 ea UD PRN N/A 08/23/17 07:00 09/22/17 06:59 Metoclopramide HCl (Reglan Inj) 10 mg Q6 IV. 08/24/17 06:30 09/23/17 06:29 08/30/17 18:26 10 MG Senna (Senokot Syrup) 8.8 mg BID PO 08/24/17 09:00 09/23/17 08:59 08/27/17 08:38 8.8 MG Heparin Sodium (Porcine) (Heparin 10 Unit/ ml 5 ml Flush) 5 ml PRN PRN FLUSH 08/25/17 02:15 09/24/17 02:14 08/31/17 05:56 5 ML Insulin Glargine (Lantus Solostar Pen) 8 units QAM SC 08/28/17 09:00 09/27/17 08:59 Future hold 08/30/17 08:26 8 UNITS Nutrition (Parenteral) 0 ml @ 0 mls/hr TODAY@1600 IV 08/30/17 16:00 08/31/17 15:59 08/30/17 15:51 0 MLS/HR Estradiol (Estradiol 0.1 Mg Transdermal) 0.1 mg Mo@0900 TD 08/30/17 18:00 09/29/17 17:59 08/30/17 18:37 0.1 MG Miscellaneous (Remove Patch) 1 ea Mo@0859 N/A 08/30/17 17:59 09/29/17 17:58 Insulin Aspart (novoLOG ASPART) SLIDING SCALE If C... ACHS SC 08/31/17 08:30 09/30/17 08:29 Impression (1) Acute kidney injury (2) CKD (chronic kidney disease), stage III (3) SBO (small bowel obstruction) (4) Proteinuria (5) Anemia (6) HTN (hypertension) (7) HIV (human immunodeficiency virus infection) Stacey has a past medical history significant for HTN, CKD and HIV. She was admitted to the hospital with SBO. She has stage III CKD w/ baseline creatinine 2.0 - 2.5. LEEROY was most likely ATN related to dehydration and small- bowel obstruction. CT abdomen & pelvis was negative for hydronephrosis. CKD is likely related to hypertensive/diabetic nephropathy but possibility for intrinsic glomerular disease such as FSGS with HIV or nephropathy from anti- retroviral medication remains. Patient is s/p exploratory laparotomy 08/20/2017: abdominal abscesses from ruptured appendix. Recommendations --acute kidney injury resolved, creatinine has been stable around 2.3-2.5 which is close to her baseline. Remain non-oliguric, blood pressure acceptable. --start on Venofer plan for total 1 gram. --avoid further IV fluid, avoid nephrotoxic medications As renal function has been stable at baseline, electrolyte acceptable, blood pressure volume status acceptable and remain non-oliguric, will sign off for now. However suggest continue to monitor renal function while in hospital and if there is any significant worsening would be happy to see her again. Thank you for the consultation
--- NOTE | 2017-08-31 12:21 | Hospitalist Progress Note ---
Hospitalist Progress Note Date of Service Aug 31, 2017. (BrycecarmelcrowMadelyn, MARGE) I personally interviewed and examined the patient. I agree with history of present illness and physical exam mentioned above, I also performed my own history taking and examination. Past medical history and review of system has been obtained by myself I reviewed all pertinent labs and studies Reviewed current medications I discussed and formulated of the assessment and plan mentioned above with Miss Buckley Please refer to the Summary mentioned below. 61 year old man transgender to female with history of hypertension, dyslipidemia , sick sinus syndrome status post pacemaker, chronic kidney disease stage III, chronic anemia secondary to chronic disease, HIV on HAART presented to the hospital with abdominal pain nausea and vomiting secondary to ruptured appendix status post exploratory laparoscopy and appendectomy. Currently improving slowly. That has been improved and tolerated well. Abdominal cultures grew Pseudomonas/anaerobic gram + bacilli-, completed course of Cipro/Flagyl discontinue TPN until today, and instructed to increase oral intake Patient also had acute kidney injury on admission, improved Continue HAAART medications Patient requested his estrogen patch, he understands that estrogen increased risk of blood clots, willing to take the risk, estrogen patch was prescribed General Appearance: not in acute distress Eyes: normal Sclerae, extraocular muscle intact ENT: hearing grossly normal Neck: supple Respiratory/Chest: normal air entry bilateral ,no respiratory distress, no accessory muscle use Cardiovascular: regular rate, rhythm, no murmur Abdomen: non tender, soft, no masses Extremities: no edema Neurologic/Psychiatric: Awake alert oriented times place and person moves all extremities sensation intact cranial nerves II-12 appear to be intact Skin: normal color, warm/dry, no rash Heri Duke MD, [facility] hospitalist group (Heri Urias MD) Subjective Pt evaluation today including: conversation w/ patient, physical exam, lab review, review of inpatient medication list Voiding: no voiding problems Patient feeling well. In good spirits because of advancing diet and stopping TPN. Advanced to low residue diet this AM by Dr. Elizabeth- tolerated well. +BM and flatus- notes loose bowels, believes due to TPN, will continue to follow No N/V. No urinary symptoms. Denies any pain. Patient denies any fever, chills, sweats, lightheadedness, dizziness, vision changes, CP, palpitations, edema, SOB, wheezing, cough, abdominal pain, nausea, vomiting, urinary symptoms, melena, numbness/tingling, weakness, muscle/joint pain, anxiety/depression, active bleeding, or new skin discoloration/changes. (Madelyn Buckley ., PA-C) Medications Reported Home Medications Medications Dose Route/Sig Max Daily Dose Days Date Category Glucotrol (Glipizide) 10 Mg Tab 10 Mg PO BID 08/17/17 Reported Bumex (Bumetanide) 0.5 Mg Tab 0.5 Mg PO DAILY 08/17/17 Reported Carvedilol 12.5 Mg Tab 18.75 Mg PO BID 30 04/25/17 Rx Ferrous Sulfate 325 Mg Tab 325 Mg PO BIDM 30 04/25/17 Rx Climara (Estradiol) 0.1 Mg/24 Hr Dis 0.1 Mg TOP DAILY 04/16/17 Reported Multivitamin (Multivitamins) Tab 1 Tab PO DAILY 04/16/17 Reported Bd Glucose (Glucose) 1 Tab Chew 4 Mg PO QID PRN 04/16/17 Reported Norvasc (Amlodipine Besylate) 10 Mg Tab 1 Tab PO DAILY 30 09/30/16 Rx Genvoya [id number] mg (Gtrgphclksub-Crsbshofdf-Gsqtkh) 1 Tab Tab 1 Tab PO DAILY 09/28/16 Reported Atorvastatin Calcium (Atorvastatin) 40 Mg Tab 40 Mg PO QAM 30 01/08/16 Rx Prezista (Darunavir Ethanolate) 800 Mg Tab 800 Mg PO HS 01/06/16 Reported Xalatan 0.005% Oph (Latanoprost) Soln 1 Drop OPB HS 01/06/16 Reported Proscar (Finasteride) 5 Mg Tab 5 Mg PO DAILY 01/06/16 Reported (Madelyn Buckley ., PA-C) Objective Vital Signs Date Time Temp Pulse Resp B/P (MAP) Pulse Ox O2 Delivery O2 Flow Rate FiO2 08/31/17 07:51 37.1 73 16 156/76 (102) 99 Room Air 08/31/17 07:30 Room Air 08/30/17 23:55 37.1 74 16 146/65 (92) 98 Room Air 08/30/17 23:51 Room Air 08/30/17 22:15 74 153/72 (99) 08/30/17 15:42 36.7 69 18 148/81 (103) 99 Room Air 08/30/17 15:30 Room Air (Madelyn Buckley PA-C) Physical Exam General Appearance: no apparent distress Eyes: normal inspection, PERRL ENT: hearing grossly normal Neck: supple Respiratory/Chest: lungs clear, no respiratory distress, no accessory muscle use Cardiovascular: regular rate, rhythm Abdomen: normal bowel sounds, non tender, + distended, + pertinent finding ( incision site bandage C/D/I ) Extremities: no pedal edema, no calf tenderness Neurologic/Psychiatric: alert, normal mood/affect, oriented x 3 Skin: normal color, warm/dry, no rash (Madelyn Buckley PA-C) Laboratory Results Last 24 Hours Test 08/30/17 17:55 08/31/17 00:03 08/31/17 05:49 08/31/17 05:56 Bedside Glucose 138 mg/dl 197 mg/dl 111 mg/dl White Blood Count 10.18 K/uL Red Blood Count 2.44 M/uL Hemoglobin 7.8 g/dL Hematocrit 22.9 % Mean Corpuscular Volume 93.9 fL Mean Corpuscular Hemoglobin 32.0 pg Mean Corpuscular Hemoglobin Concent 34.1 g/dl RDW Standard Deviation 45.7 fL RDW Coefficient of Variation 13.6 % Platelet Count 348 K/uL Mean Platelet Volume 11.4 fL Sodium Level 138 mmol/L Potassium Level 4.6 mmol/L Chloride Level 112 mmol/L Carbon Dioxide Level 21 mmol/L Anion Gap 5.0 mmol/L Blood Urea Nitrogen 52 mg/dl Creatinine 2.26 mg/dl Est Creatinine Clear Calc Drug Dose 28.0 ml/min Estimated GFR () 34.5 Estimated GFR (Non- 29.8 BUN/Creatinine Ratio 23.0 Random Glucose 92 mg/dl Calcium Level 8.0 mg/dl Phosphorus Level 3.0 mg/dl Magnesium Level 2.0 mg/dl Triglycerides Level 154 mg/dl (Madelyn Buckley PA-C) Assessment and Plan 61 y/o transgender female with a history of HTN, HLD, sick sinus syndrome s/p pacemaker 04/26/17, DM II, CKD stage III, anemia of chronic disease, and HIV who presented to the ED on 08/16 from [facility] with abdominal pain, nausea and vomiting. Pt afebrile, VSS on arrival. O2 sat did drop to 85%, placed on 2L NC. CXR with possible left base consolidation vs atelectasis. CT abdomen/ pelvis with distal small bowel obstructive change and inflammatory change of the appendix with associated appendicolith. Creatinine 2.50, elevated above baseline. POC lactic acid 2.15. LFTs elevated. s/p ex-lap on 08/[address] Elizabeth for SBO, finding ruptured appendicitis with abscess formation: - NG tube placed on 08/19- removed on 08/22 and diet advanced to clears- did not tolerated and NG replaced on 08/23- placed PICC line and started TPN on 08/24- stopped on 08/31 -- Removed NG tube 08/27, SLOWLY advancing diet- advance to low residue today - Treated w/ IVF @ 100 ml/hr while NPO- ECHO from 04/2017 w/ preserved EF - Morphine 4 mg IV q4h, IV Dilaudid PRN for pain management - Abdominal cultures growing Pseudomonas/anaerobic gram + bacilli- sensitives reviewed- IV Cipro + Flagyl- completed x10 days- ID following - General surgery consulted, appreciate recommendations- surgical management as per surgery - GI consulted, appreciate recommendations Acute respiratory and metabolic acidosis secondary to LEEROY- RESOLVED: - ICU due to postop anesthesia complications/renal failure- STABLE- transferred to tele on 08/21 and med/surg on 08/22 - DuoNebs QID and PRN - CXR on 08/23- PNA vs atelectasis -- Likely atelectasis due to no cough/sputum production, fever/chills, or WBC - however, IV Cipro coverage as above -- Encourage incentive spirometer, ambulation, OOB in chair QS - Nephrology following LEEROY on CKD stage II, likely secondary to ATN- baseline supervisor fine grading 2.0-2.5- supervisor fine grading 2.26 today- RESOLVED, anemia of chronic disease- baseline hgb 10: - Avoid nephrotoxic agents and renally dose medications as appropriate - Follow PRP and UO - Nephrology consulted, appreciate recommendations- no need for acute HD at this time, IV Venofer for a total of 1 gm - H&H- 7.8 today- continue to follow and transfuse PRN hgb < 7.0 or symptomatic HTN, HLD, sick sinus syndrome s/p pacemaker 04/26/17: - Lipitor 40 mg PO qd held until tolerating full PO intake - Continue Coreg 18.75 mg PO BID and Norvasc 10 mg daily - IV Hydralazine PRN T2DM- last HgbA1c 5.0%: - Hold Glipizide while inpatient - Hyperglycemia- Lantus 4 u daily and adjust PRN - BSG ACHS and ISS HIV: Continue Genvoya 1 tab PO qd and Prezista 800 mg PO HS once tolerating full PO intake BPH: Hold Proscar 5 mg PO qd until tolerating full PO intake Glaucoma: Continue Latanoprost drops GI prophylaxis: IV Pepcid DVT prophylaxis: Heparin SQ BID held due to worsening anemia; encouraged ambulation Code Status: LEVEL I, FULL Dispo: From [facility] (Madelyn Buckley, PAGenetC)
[2017-08-31] MEDS: IRON SUCROSE INJ 200 MG in SODIUM CHLORIDE 0.9% 100ML 100 ML IV SCH (14:05)
--- NOTE | 2017-08-31 14:47 | Infectious Disease Progress Nt ---
Progress Note Date of Service Aug 31, 2017. Subjective Pt evaluation today including: conversation w/ patient, physical exam, chart review, lab review, review of studies, conversation w/ qa consultant, review of inpatient medication list Offers no new complaints today. Abdominal pain controlled. No fever. All Other Systems: Reviewed and Negative Medications Current Inpatient Medications Medications (Trade) Dose Ordered Sig/Carlin Route Start Time Stop Time Status Last Admin Dose Admin Acetaminophen (Tylenol Tab) 650 mg Q4H PRN PO 08/17/17 13:45 09/16/17 13:44 08/30/17 22:16 650 MG Al Hydrox/Mg Hydrox/Simethicone (Maalox Max Susp) 15 ml Q4H PRN PO 08/17/17 13:45 09/16/17 13:44 08/18/17 21:37 15 ML Magnesium Hydroxide (Milk Of Magnesia Susp) 30 ml Q6H PRN PO 08/17/17 13:45 09/16/17 13:44 Polyethylene (Miralax Powder Packet) 17 gm DAILY PRN PO 08/17/17 15:00 09/16/17 14:59 Ondansetron HCl (Zofran Inj) 4 mg Q6H PRN IV 08/17/17 13:45 09/16/17 13:44 08/23/17 05:47 4 MG Glucose (Glucose 40% Gel) 15-30 GRAMS 15 GRAMS... UD PRN PO 08/17/17 13:45 09/16/17 13:44 Glucose (Glucose Chew Tab) 4-8 Tablets 4 Tabl... UD PRN PO 08/17/17 13:45 09/16/17 13:44 Dextrose (Dextrose 50% 50ML Syringe) 25-50ML OF 50% DW IV FOR... UD PRN IV 08/17/17 13:45 09/16/17 13:44 Glucagon (Glucagon Inj) 1 mg UD PRN SQ 08/17/17 13:45 09/16/17 13:44 Latanoprost (Xalatan Oph Soln) 1 drops HS OPB 08/17/17 21:00 09/16/17 20:59 08/30/17 21:00 1 DROPS Atorvastatin Calcium (Lipitor Tab) 40 mg QAM PO 08/18/17 09:00 09/17/17 08:59 Future Hold 08/18/17 09:03 40 MG Carvedilol (Coreg Tab) 18.75 mg BID PO 08/17/17 21:00 09/16/17 20:59 08/31/17 08:57 18.75 MG Finasteride (Proscar Tab) 5 mg DAILY PO 08/18/17 09:00 09/17/17 08:59 Future Hold 08/18/17 09:03 5 MG Non-Formulary Medication (Darunavir Ethanolate (Prezista)) 800 mg HS PO 08/17/17 21:00 09/16/17 20:59 UNV Elvitegravir/ Cobicis/Emtricit/ Tenof (Genvoya [id number] Mg) 1 tab DAILY PO 08/18/17 09:00 09/17/17 08:59 Future Hold 08/18/17 09:17 1 TAB Famotidine 20 mg/ Syringe 5 ml @ 2.5 mls/min Q12H IV 08/18/17 19:00 09/17/17 18:59 08/30/17 19:02 2.5 MLS/MIN Zolpidem Tartrate (Ambien Tab) 5 mg HS PRN PO 08/18/17 22:00 09/17/17 21:59 Future Hold 08/18/17 23:16 5 MG Hydralazine HCl (HydrALAZINE INJ) 10 mg Q6H PRN IV. 08/19/17 10:30 09/18/17 10:29 08/26/17 16:39 10 MG Menthol (Nice Royce) 1 royce Q1H PRN PO 08/19/17 18:45 09/18/17 18:44 08/19/17 18:53 1 ROYCE Albuterol/ Ipratropium (Duoneb) 3 ml Q6H PRN INH 08/20/17 12:00 09/18/17 11:59 08/20/17 19:58 3 ML Hydromorphone HCl (Dilaudid Inj) 0.5 mg Q3H PRN IV 08/20/17 13:30 09/03/17 13:29 08/24/17 19:17 0.5 MG Hydromorphone HCl (Dilaudid Inj) 1 mg Q3H PRN IV 08/20/17 13:30 09/03/17 13:29 1/17/18 15:54 1 MG Amlodipine Besylate (Norvasc Tab) 10 mg QAM PO 08/23/17 09:00 09/22/17 08:59 08/31/17 08:57 10 MG Dextrose 1,000 ml @ 0 mls/hr Q0M PRN IV 08/23/17 16:00 09/22/17 15:59 Miscellaneous Information (Pharmacy Tpn/ Ppn Consult Active) 1 ea UD PRN N/A 08/23/17 07:00 08/31/17 15:59 Metoclopramide HCl (Reglan Inj) 10 mg Q6 IV. 08/24/17 06:30 09/23/17 06:29 08/31/17 12:36 10 MG Senna (Senokot Syrup) 8.8 mg BID PO 08/24/17 09:00 09/23/17 08:59 08/27/17 08:38 8.8 MG Heparin Sodium (Porcine) (Heparin 10 Unit/ ml 5 ml Flush) 5 ml PRN PRN FLUSH 08/25/17 02:15 09/24/17 02:14 08/31/17 14:36 5 ML Insulin Glargine (Lantus Solostar Pen) 8 units QAM SC 08/28/17 09:00 09/27/17 08:59 Future hold 08/30/17 08:26 8 UNITS Nutrition (Parenteral) 0 ml @ 0 mls/hr TODAY@1600 IV 08/30/17 16:00 08/31/17 15:59 08/30/17 15:51 0 MLS/HR Estradiol (Estradiol 0.1 Mg Transdermal) 0.1 mg Mo@0900 TD 08/30/17 18:00 09/29/17 17:59 08/30/17 18:37 0.1 MG Miscellaneous (Remove Patch) 1 ea Mo@0859 N/A 08/30/17 17:59 09/29/17 17:58 Insulin Aspart (novoLOG ASPART) SLIDING SCALE If C... ACHS SC 08/31/17 08:30 09/30/17 08:29 08/31/17 14:04 7 UNITS Iron Sucrose 200 mg/Sodium Chloride 110 ml @ 420 mls/hr Q2D IV 08/31/17 13:00 09/08/17 13:16 08/31/17 14:05 420 MLS/HR Objective Vital Signs Date Time Temp Pulse Resp B/P (MAP) Pulse Ox O2 Delivery O2 Flow Rate FiO2 08/31/17 14:36 37.1 76 12 152/72 (98) 97 Room Air 08/31/17 14:12 37.1 68 18 151/71 (97) 96 Room Air 08/31/17 07:51 37.1 73 16 156/76 (102) 99 Room Air 08/31/17 07:30 Room Air 08/30/17 23:55 37.1 74 16 146/65 (92) 98 Room Air 08/30/17 23:51 Room Air 08/30/17 22:15 74 153/72 (99) 08/30/17 15:42 36.7 69 18 148/81 (103) 99 Room Air 08/30/17 15:30 Room Air Physical Exam General Appearance: WD/WN, no apparent distress Eyes: normal inspection, EOMI, sclerae normal ENT: normal ENT inspection, pharynx normal Neck: supple, no adenopathy, trachea midline Respiratory/Chest: chest non-tender, lungs clear, normal breath sounds, no respiratory distress Cardiovascular: regular rate, rhythm, no gallop, no murmur Abdomen: normal bowel sounds, soft, no organomegaly, + tenderness Extremities: non-tender, no calf tenderness Neurologic/Psychiatric: alert, oriented x 3 Skin: normal color, warm/dry, no rash Lymphatic: no adenopathy Laboratory Results Last 24 Hours Test 08/30/17 17:55 08/31/17 00:03 08/31/17 05:49 08/31/17 05:56 Bedside Glucose 138 mg/dl 197 mg/dl 111 mg/dl White Blood Count 10.18 K/uL Red Blood Count 2.44 M/uL Hemoglobin 7.8 g/dL Hematocrit 22.9 % Mean Corpuscular Volume 93.9 fL Mean Corpuscular Hemoglobin 32.0 pg Mean Corpuscular Hemoglobin Concent 34.1 g/dl RDW Standard Deviation 45.7 fL RDW Coefficient of Variation 13.6 % Platelet Count 348 K/uL Mean Platelet Volume 11.4 fL Sodium Level 138 mmol/L Potassium Level 4.6 mmol/L Chloride Level 112 mmol/L Carbon Dioxide Level 21 mmol/L Anion Gap 5.0 mmol/L Blood Urea Nitrogen 52 mg/dl Creatinine 2.26 mg/dl Est Creatinine Clear Calc Drug Dose 28.0 ml/min Estimated GFR () 34.5 Estimated GFR (Non- 29.8 BUN/Creatinine Ratio 23.0 Random Glucose 92 mg/dl Calcium Level 8.0 mg/dl Phosphorus Level 3.0 mg/dl Magnesium Level 2.0 mg/dl Triglycerides Level 154 mg/dl Test 08/31/17 08:20 08/31/17 12:11 Bedside Glucose 102 mg/dl 158 mg/dl Assessment and Plan 61-year-old transgender female with well controlled HIV infection now status post acute appendicitis with rupture with cultures growing Pseudomonas aeruginosa and anaerobic gram-positive bacilli. Given patient's penicillin allergy and good clinical response, she has completed 10 days of IV antibiotics , so I antibiotic therapy can be discontinued at this point. Continue on current HIV medications. Patient will be followed at the [facility].
[2017-08-31] MEDS: LATANOPROST 0.005% OP SOLN 2.5 ML BTL OPB SCH (21:03)
[2017-08-31] MEDS: ACETAMINOPHEN 325 MG TAB PO PRN (23:44)
[2017-09-01] VITALS (12 sets, daily range): BP systolic 139–165; BP diastolic 65–80; PULSE 65–73; TEMP 36.5–37.4; O2SAT 98–99; Ht 162.6 cm; Wt 59.6 kg
[2017-09-01] MEDS: METOCLOPRAMIDE HCL INJ 5 MG/ML 2 ML VIAL IV. SCH ×2 (05:57→13:36)
[2017-09-01] MEDS: FAMOTIDINE IV INJ 20 MG in SYRINGE 3 ML IV SCH (06:25)
[2017-09-01 06:47] LABS: HEMATOCRIT 20.8 % (42-52); HEMOGLOBIN 6.9 g/dL (14.0-18.0); MEAN CELL VOLUME 95.9 fL (80-100); MEAN CORPUSCULAR HEMOGLOBIN 31.8 pg (25-34); MEAN CORPUSCULAR HGB CONC 33.2 g/dl (32-36); MEAN PLATELET VOLUME 11.1 fL (7.4-10.4); PLATELET COUNT 303 K/uL (130-400); RED CELL DISTRIBUTION WIDTH CV 13.9 % (11.5-14.5); RED CELL DISTRIBUTION WIDTH SD 47.4 fL (36.4-46.3); WHITE BLOOD COUNT 9.44 K/uL (4.8-10.8)
[2017-09-01 06:53] LABS: CALCIUM 7.8 mg/dl (8.5-10.1); CREATININE 2.24 mg/dl (0.60-1.40)
[2017-09-01] MEDS ORDERED: HEPARIN SOD 5000 UNIT/0.5 ML CARP SQ SCH (09:00)
[2017-09-01] MEDS: CARVEDILOL 12.5 MG TAB PO SCH ×2 (09:29→21:34)
[2017-09-01] MEDS: AMLODIPINE BESYLATE 5 MG TAB PO SCH (09:29)
[2017-09-01] MEDS: SENNA 8.8 MG/5 ML UDP PO SCH ×2 (09:30→21:00)
[2017-09-01] MEDS ORDERED: NURSING VERBAL MED ORDER ONE (09:45)
[2017-09-01] MEDS: INSULIN ASPART 100 UNITS/ML 3 ML PEN SC SCH ×4 (09:46→21:00)
[2017-09-01] MEDS: INSULIN GLARGINE SOLOSTAR 100 UNITS/ML 3 ML PEN SC SCH (09:49)
--- NOTE | 2017-09-01 10:11 | Surgery Progress Note ---
Surgery Progress Note Date of Service Sep 01, 2017. Subjective H/H lower this am- no evidence of active hemorrhage pt asx- alert- brock diet Objective Vital Signs: Date Time Temp Pulse Resp B/P (MAP) Pulse Ox O2 Delivery O2 Flow Rate FiO2 09/01/17 08:05 36.8 65 16 148/65 (92) 98 Room Air 09/01/17 00:45 98 Room Air 08/31/17 23:55 37.3 67 15 146/71 (96) 98 Room Air 08/31/17 21:15 73 148/73 (98) 08/31/17 15:35 98 Room Air 08/31/17 15:22 37.3 79 18 143/70 (94) 98 Room Air 08/31/17 14:36 37.1 76 12 152/72 (98) 97 Room Air 08/31/17 14:12 37.1 68 18 151/71 (97) 96 Room Air General Appearance: no apparent distress Respiratory/Chest: no respiratory distress Abdomen: soft Incision(s): dry, intact Laboratory Results: Results Past 24 Hours Test 08/31/17 12:11 08/31/17 16:59 08/31/17 17:17 08/31/17 17:38 Range/Units Bedside Glucose 158 51 62 100 70-99 mg/dl Test 08/31/17 21:02 09/01/17 05:33 09/01/17 08:50 Range/Units Bedside Glucose 163 157 70-99 mg/dl White Blood Count 9.44 4.8-10.8 K/uL Red Blood Count 2.17 4.7-6.1 M/uL Hemoglobin 6.9 14.0-18.0 g/dL Hematocrit 20.8 42-52 % Mean Corpuscular Volume 95.9 80-100 fL Mean Corpuscular Hemoglobin 31.8 25-34 pg Mean Corpuscular Hemoglobin Concent 33.2 32-36 g/dl RDW Standard Deviation 47.4 36.4-46.3 fL RDW Coefficient of Variation 13.9 11.5-14.5 % Platelet Count 303 130-400 K/uL Mean Platelet Volume 11.1 7.4-10.4 fL Sodium Level 139 136-145 mmol/L Potassium Level 5.0 3.5-5.1 mmol/L Chloride Level 112 98-107 mmol/L Carbon Dioxide Level 20 21-32 mmol/L Anion Gap 8.0 3-11 mmol/L Blood Urea Nitrogen 47 7-18 mg/dl Creatinine 2.24 0.60-1.40 mg/dl Est Creatinine Clear Calc Drug Dose 28.3 ml/min Estimated GFR () 34.9 Estimated GFR (Non- 30.1 BUN/Creatinine Ratio 20.9 10-20 Random Glucose 147 70-99 mg/dl Calcium Level 7.8 8.5-10.1 mg/dl Assessment & Plan 09/01/17- For transfusion. At this point can d/c back to [facility] when medically stable- keep picc line until d/c. will place instructions, f/u in EMR. 08/31/17- will advance to low fiber diet- stop Tpn when current bag complete- cont IV atbx for now. check labs- overall making slow progress 08/30/17- slowly improving GI function- Cont Tpn, try full liquids. d/c drain, check H/H, hold SC Heparin. Expect loose bms Continue IV atbx- ID following 08/27/17- some concern for distention and mild ileus but minimal NG output and some bowel function. Tpn helping with edema/protein status. will try to d/c NG and limit po today- very slowly adv diet. may need NG back in if vomits. Dr Wren covering over weekend 08/26/17- some slow improvement- not yet convinced GI activity ready for removal of NG- cont Tpn, try sips of clears w/ NG clamped. increase mobility if possible 08/25/17- intraop cult- pseudomonas- sens to Cipro- discussed with Dr Darnell- cont same for now- ID will see as pt is HIV + 08/25/17- will order Tpn- central w/ picc line, d/c velazquez, leave drain. cont NG as he is still distended. overall some progress but expected to be slow. coughing up loose secretions- cont atbx 08/24/17- ileus not unexpected- ppn ordered- not started- pharmacy notified. Will probably benefit from picc line for addnl calories cont NG, try some Reglan. cont wound care, IV atbx 08/23/17- pt s/p laparotomy , lysis of adhesions, drainage abd abscess appendectomy- at risk for ileus- vomited- check film, clears only if vomits again will need NG- order periph tpn- may need Picc line ambulate 08/20/17- GI evaluation noted- on IV atbx- distention of abd same or worse will try to give some contrast via NG and rescan pt- no IV contrast considering abd exploration- will also discuss with GI 08/19/17- Persistent distention- ? gastric, ? bowel- atypical for mechanical sbo - will have NG placed, check labs, will possibly need contrast study but will not tolerate po- ask GI to see . may come explor lap if does not resolve 08/18/17- will try full liquids- nephrology checking on pt will cont to follow progress 08/31/17- will advance to low fiber diet- stop Tpn when current bag complete- cont IV atbx for now. check labs- overall making slow progress 08/30/17- slowly improving GI function- Cont Tpn, try full liquids. d/c drain, check H/H, hold SC Heparin. Expect loose bms Continue IV atbx- ID following 08/27/17- some concern for distention and mild ileus but minimal NG output and some bowel function. Tpn helping with edema/protein status. will try to d/c NG and limit po today- very slowly adv diet. may need NG back in if vomits. Dr Wren covering over weekend 08/26/17- some slow improvement- not yet convinced GI activity ready for removal of NG- cont Tpn, try sips of clears w/ NG clamped. increase mobility if possible 08/25/17- intraop cult- pseudomonas- sens to Cipro- discussed with Dr Darnell- cont same for now- ID will see as pt is HIV + 08/25/17- will order Tpn- central w/ picc line, d/c velazquez, leave drain. cont NG as he is still distended. overall some progress but expected to be slow. coughing up loose secretions- cont atbx 08/24/17- ileus not unexpected- ppn ordered- not started- pharmacy notified. Will probably benefit from picc line for addnl calories cont NG, try some Reglan. cont wound care, IV atbx 08/23/17- pt s/p laparotomy , lysis of adhesions, drainage abd abscess appendectomy- at risk for ileus- vomited- check film, clears only if vomits again will need NG- order periph tpn- may need Picc line ambulate 08/20/17- GI evaluation noted- on IV atbx- distention of abd same or worse will try to give some contrast via NG and rescan pt- no IV contrast considering abd exploration- will also discuss with GI 08/19/17- Persistent distention- ? gastric, ? bowel- atypical for mechanical sbo - will have NG placed, check labs, will possibly need contrast study but will not tolerate po- ask GI to see . may come explor lap if does not resolve 08/18/17- will try full liquids- nephrology checking on pt will cont to follow progress
--- NOTE | 2017-09-01 10:14 | Discharge Instructions ---
Discharge Instructions Date of Service Sep 01, 2017. Admission Reason for Admission: Abdominal Pain Discharge Discharge Diagnosis / Problem: sbo, ruptured appendix Discharge Goals Goal(s): Decrease discomfort, Improve function, Improve disease control Activity Recommendations Activity Limitations: as noted below Lifting Limitations: no more than 25 pounds (for 4 weeks) Exercise/Sports Limitations: until after follow-up appointment May Resume Sexual Activity: after follow-up appointment Shower/Bathe: tomorrow Driving or Machine Use: 2 weeks . Instructions / Follow-Up Instructions / Follow-Up SPECIAL CARE INSTRUCTIONS: * Cover incisions and change daily for comfort/drainage. * Expect some swelling and bruising. Call your doctor if: * Temperature above 101 degrees * Pain not relieved by pain medicine ordered * There is increased drainage or redness from any incision * You have any unanswered questions or concerns [phone]. FOLLOW UP VISIT: If not already scheduled, please call the office for a follow-up visit. 2-3 weeks- check up may remove remaining bryson next week OFFICE PHONE NUMBER: Dr. Elizabeth Office Current Hospital Diet Patient's current hospital diet: Low Fiber Diet, Diabetes Type 2 Diet Discharge Diet Recommended Diet: Low Fiber Diet Procedures Procedures Performed: Laparotomy, Drainage of Intra-Abdominal Abcess, Appendectomy Pending Studies Studies pending at discharge: no Laboratory Results Hemoglobin A1c Test 08/17/17 14:21 Range/Units Estimated Average Glucose 97 mg/dl Hemoglobin A1c 5.0 4.5-5.6 % Lipid Panel Test 08/31/17 05:56 Range/Units Triglycerides Level 154 H 0-150 mg/dl Medical Emergencies . Who to Call and When: Medical Emergencies: If at any time you feel your situation is an emergency, please call 911 immediately. . Non-Emergent Contact Non-Emergency issues call your: Primary Care Provider, Surgeon . "Provider Documentation" section prepared by Shakeel Elizabeth. . VTE Core Measure Inpt VTE Proph given/why not?: Unfractionated heparin CASH, T.E.Yeny. Stockings, SCD 's
--- NOTE | 2017-09-01 13:35 | Hospitalist Progress Note ---
Hospitalist Progress Note Date of Service Sep 01, 2017. (Madelyn Buckley ., MARGE) Subjective Pt evaluation today including: conversation w/ patient, physical exam, lab review, review of inpatient medication list Voiding: no voiding problems Patient feeling well. Tolerating diet. BMs starting to become more formed. No pain. Removed some of abdominal bryson today. Patient denies any fever, chills, sweats, lightheadedness, dizziness, vision changes, CP, palpitations, edema, SOB, wheezing, cough, abdominal pain, nausea, vomiting, diarrhea, urinary symptoms, melena, numbness/tingling, weakness, muscle/joint pain, anxiety/depression, active bleeding, or new skin discoloration/changes. (Madelyn Buckley, RUDDYC) Medications Current Inpatient Medications Medications (Trade) Dose Ordered Sig/Carlin Route Start Time Stop Time Status Last Admin Dose Admin Acetaminophen (Tylenol Tab) 650 mg Q4H PRN PO 08/17/17 13:45 09/16/17 13:44 08/31/17 23:44 650 MG Al Hydrox/Mg Hydrox/Simethicone (Maalox Max Susp) 15 ml Q4H PRN PO 08/17/17 13:45 09/16/17 13:44 08/18/17 21:37 15 ML Magnesium Hydroxide (Milk Of Magnesia Susp) 30 ml Q6H PRN PO 08/17/17 13:45 09/16/17 13:44 Polyethylene (Miralax Powder Packet) 17 gm DAILY PRN PO 08/17/17 15:00 09/16/17 14:59 Ondansetron HCl (Zofran Inj) 4 mg Q6H PRN IV 08/17/17 13:45 09/16/17 13:44 08/23/17 05:47 4 MG Glucose (Glucose 40% Gel) 15-30 GRAMS 15 GRAMS... UD PRN PO 08/17/17 13:45 09/16/17 13:44 Glucose (Glucose Chew Tab) 4-8 Tablets 4 Tabl... UD PRN PO 08/17/17 13:45 09/16/17 13:44 Dextrose (Dextrose 50% 50ML Syringe) 25-50ML OF 50% DW IV FOR... UD PRN IV 08/17/17 13:45 09/16/17 13:44 Glucagon (Glucagon Inj) 1 mg UD PRN SQ 08/17/17 13:45 09/16/17 13:44 Latanoprost (Xalatan Oph Soln) 1 drops HS OPB 08/17/17 21:00 09/16/17 20:59 08/31/17 21:03 1 DROPS Atorvastatin Calcium (Lipitor Tab) 40 mg QAM PO 08/18/17 09:00 09/17/17 08:59 Future Hold 08/18/17 09:03 40 MG Carvedilol (Coreg Tab) 18.75 mg BID PO 08/17/17 21:00 09/16/17 20:59 09/01/17 09:29 18.75 MG Finasteride (Proscar Tab) 5 mg DAILY PO 08/18/17 09:00 09/17/17 08:59 Future Hold 08/18/17 09:03 5 MG Non-Formulary Medication (Darunavir Ethanolate (Prezista)) 800 mg HS PO 08/17/17 21:00 09/16/17 20:59 UNV Famotidine 20 mg/ Syringe 5 ml @ 2.5 mls/min Q12H IV 08/18/17 19:00 09/17/17 18:59 08/30/17 19:02 2.5 MLS/MIN Zolpidem Tartrate (Ambien Tab) 5 mg HS PRN PO 08/18/17 22:00 09/17/17 21:59 Future Hold 08/18/17 23:16 5 MG Hydralazine HCl (HydrALAZINE INJ) 10 mg Q6H PRN IV. 08/19/17 10:30 09/18/17 10:29 08/26/17 16:39 10 MG Menthol (Nice Nory) 1 nory Q1H PRN PO 08/19/17 18:45 09/18/17 18:44 08/19/17 18:53 1 NORY Albuterol/ Ipratropium (Duoneb) 3 ml Q6H PRN INH 08/20/17 12:00 09/18/17 11:59 08/20/17 19:58 3 ML Hydromorphone HCl (Dilaudid Inj) 0.5 mg Q3H PRN IV 08/20/17 13:30 09/03/17 13:29 08/24/17 19:17 0.5 MG Hydromorphone HCl (Dilaudid Inj) 1 mg Q3H PRN IV 08/20/17 13:30 09/03/17 13:29 08/25/17 15:54 1 MG Amlodipine Besylate (Norvasc Tab) 10 mg QAM PO 08/23/17 09:00 09/22/17 08:59 09/01/17 09:29 10 MG Dextrose 1,000 ml @ 0 mls/hr Q0M PRN IV 08/23/17 16:00 09/22/17 15:59 Metoclopramide HCl (Reglan Inj) 10 mg Q6 IV. 08/24/17 06:30 09/23/17 06:29 08/31/17 18:35 10 MG Senna (Senokot Syrup) 8.8 mg BID PO 08/24/17 09:00 09/23/17 08:59 08/27/17 08:38 8.8 MG Heparin Sodium (Porcine) (Heparin 10 Unit/ ml 5 ml Flush) 5 ml PRN PRN FLUSH 08/25/17 02:15 09/24/17 02:14 09/01/17 05:33 5 ML Estradiol (Estradiol 0.1 Mg Transdermal) 0.1 mg Mo@0900 TD 08/30/17 18:00 09/29/17 17:59 08/30/17 18:37 0.1 MG Miscellaneous (Remove Patch) 1 ea Mo@0859 N/A 08/30/17 17:59 09/29/17 17:58 Insulin Aspart (novoLOG ASPART) SLIDING SCALE If C... ACHS SC 08/31/17 08:30 09/30/17 08:29 09/01/17 09:46 4 UNITS Iron Sucrose 200 mg/Sodium Chloride 110 ml @ 420 mls/hr Q2D IV 08/31/17 13:00 09/08/17 13:16 08/31/17 14:05 420 MLS/HR Insulin Glargine (Lantus Solostar Pen) 4 units QAM SC 09/02/17 09:00 10/02/17 08:59 Elvitegravir/ Cobicis/Emtricit/ Tenof (Genvoya 543-350-419-10 Mg) 1 tab DAILY PO 09/02/17 09:00 09/17/17 08:59 (Madelyn Buckley PA-C) Objective Vital Signs Date Time Temp Pulse Resp B/P (MAP) Pulse Ox O2 Delivery O2 Flow Rate FiO2 09/01/17 12:58 36.6 67 18 147/80 09/01/17 12:41 36.7 65 18 151/73 09/01/17 08:30 Room Air 09/01/17 08:05 36.8 65 16 148/65 (92) 98 Room Air 09/01/17 00:45 98 Room Air 08/31/17 23:55 37.3 67 15 146/71 (96) 98 Room Air 08/31/17 21:15 73 148/73 (98) 08/31/17 15:35 98 Room Air 08/31/17 15:22 37.3 79 18 143/70 (94) 98 Room Air 08/31/17 14:36 37.1 76 12 152/72 (98) 97 Room Air 08/31/17 14:12 37.1 68 18 151/71 (97) 96 Room Air (Madelyn Buckley PA-C) Physical Exam General Appearance: no apparent distress Eyes: normal inspection, PERRL ENT: hearing grossly normal Neck: supple Respiratory/Chest: lungs clear, no respiratory distress, no accessory muscle use Cardiovascular: regular rate, rhythm Abdomen: normal bowel sounds, non tender, soft Extremities: no pedal edema, no calf tenderness Neurologic/Psychiatric: alert, normal mood/affect, oriented x 3 Skin: normal color, warm/dry, no rash (Madelyn Buckley PA-C) Laboratory Results Last 24 Hours Test 08/31/17 16:59 08/31/17 17:17 08/31/17 17:38 08/31/17 21:02 Bedside Glucose 51 mg/dl 62 mg/dl 100 mg/dl 163 mg/dl Test 09/01/17 05:33 09/01/17 08:50 White Blood Count 9.44 K/uL Red Blood Count 2.17 M/uL Hemoglobin 6.9 g/dL Hematocrit 20.8 % Mean Corpuscular Volume 95.9 fL Mean Corpuscular Hemoglobin 31.8 pg Mean Corpuscular Hemoglobin Concent 33.2 g/dl RDW Standard Deviation 47.4 fL RDW Coefficient of Variation 13.9 % Platelet Count 303 K/uL Mean Platelet Volume 11.1 fL Sodium Level 139 mmol/L Potassium Level 5.0 mmol/L Chloride Level 112 mmol/L Carbon Dioxide Level 20 mmol/L Anion Gap 8.0 mmol/L Blood Urea Nitrogen 47 mg/dl Creatinine 2.24 mg/dl Est Creatinine Clear Calc Drug Dose 28.3 ml/min Estimated GFR () 34.9 Estimated GFR (Non- 30.1 BUN/Creatinine Ratio 20.9 Random Glucose 147 mg/dl Calcium Level 7.8 mg/dl Bedside Glucose 157 mg/dl (Madelyn Buckley, PAGenetC) Assessment and Plan 61 y/o transgender female with a history of HTN, HLD, sick sinus syndrome s/p pacemaker 04/26/17, DM II, CKD stage III, anemia of chronic disease, and HIV who presented to the ED on 08/16 from [facility] with abdominal pain, nausea and vomiting. Pt afebrile, VSS on arrival. O2 sat did drop to 85%, placed on 2L NC. CXR with possible left base consolidation vs atelectasis. CT abdomen/ pelvis with distal small bowel obstructive change and inflammatory change of the appendix with associated appendicolith. Creatinine 2.50, elevated above baseline. POC lactic acid 2.15. LFTs elevated. s/p ex-lap on 08/[address] Elizabeth for SBO, finding ruptured appendicitis with abscess formation: - NG tube placed on 08/19- removed on 08/22 and diet advanced to clears- did not tolerated and NG replaced on 08/23- placed PICC line and started TPN on 08/24- stopped on 08/31 -- Removed NG tube 08/27, SLOWLY advancing diet- advance to low residue on , tolerating well - Treated w/ IVF @ 100 ml/hr while NPO- ECHO from 04/2017 w/ preserved EF - Morphine 4 mg IV q4h, IV Dilaudid PRN for pain management - Abdominal cultures growing Pseudomonas/anaerobic gram + bacilli- sensitives reviewed- IV Cipro + Flagyl- completed x10 days- ID following - General surgery consulted, appreciate recommendations- surgical management as per surgery - GI consulted, appreciate recommendations Acute respiratory and metabolic acidosis secondary to LEEROY- RESOLVED: - ICU due to postop anesthesia complications/renal failure- STABLE- transferred to tele on 08/21 and med/surg on 08/22 - DuoNebs QID and PRN - CXR on 08/23- PNA vs atelectasis -- Likely atelectasis due to no cough/sputum production, fever/chills, or WBC - however, IV Cipro coverage as above -- Encourage incentive spirometer, ambulation, OOB in chair QS - Nephrology following LEEROY on CKD stage II, likely secondary to ATN- baseline scholarship counselor 2.0-2.5- scholarship counselor 2.24 today- RESOLVED, anemia of chronic disease- baseline hgb 10: - Avoid nephrotoxic agents and renally dose medications as appropriate - Follow PRP and UO - Nephrology consulted, appreciate recommendations- no need for acute HD at this time, IV Venofer for a total of 1 gm - H&H- 6.9 today- continue to follow and transfuse PRN hgb < 7.0 or symptomatic -- Transfuse 1 unit PRBCs on 09/01 HTN, HLD, sick sinus syndrome s/p pacemaker 04/26/17: - Lipitor 40 mg PO daily- resume today - Continue Coreg 18.75 mg PO BID and Norvasc 10 mg daily - IV Hydralazine PRN T2DM- last HgbA1c 5.0%: - Hold Glipizide while inpatient - Hyperglycemia- Lantus 4 u daily and adjust PRN - BSG ACHS and ISS HIV: Continue Genvoya 1 tab PO qd and Prezista 800 mg PO HS- resume today BPH: Hold Proscar 5 mg PO qd- resume today Glaucoma: Continue Latanoprost drops GI prophylaxis: IV Pepcid DVT prophylaxis: Heparin SQ BID held due to worsening anemia; encouraged ambulation Code Status: LEVEL I, FULL Dispo: From [facility]- hopeful discharge in the next 1-2 days if H&H stabilizes (Madelyn Buckley, MARGE) I personally interviewed and examined the patient. I agree with history of present illness and physical exam mentioned above, I also performed my own history taking and examination. Past medical history and review of system has been obtained by myself I reviewed all pertinent labs and studies Reviewed current medications I discussed and formulated of the assessment and plan mentioned above with Miss Buckley Please refer to the Summary mentioned below. 61 year old man transgender to female with history of hypertension, dyslipidemia , sick sinus syndrome status post pacemaker, chronic kidney disease stage III, chronic anemia secondary to chronic disease, HIV on HAART presented to the hospital with abdominal pain nausea and vomiting secondary to ruptured appendix status post exploratory laparoscopy and appendectomy. Currently improving slowly. That has been improved and tolerated well. Abdominal cultures grew Pseudomonas/anaerobic gram + bacilli-, completed course of Cipro/Flagyl discontinue TPN until today, and instructed to increase oral intake Patient also had acute kidney injury on admission, improved restarted HAAART medications, patient does not want the guards to know that she is on HAART. given estrogen patch as per her request, she understands that estrogen increased risk of blood clots, Follow-up with labs in a.m. General Appearance: not in acute distress Eyes: normal Sclerae, extraocular muscle intact ENT: hearing grossly normal Neck: supple Respiratory/Chest: normal air entry bilateral ,no respiratory distress, no accessory muscle use Cardiovascular: regular rate, rhythm, no murmur Abdomen: non tender, soft, no masses Extremities: no edema Neurologic/Psychiatric: Awake alert oriented times place and person moves all extremities sensation intact cranial nerves II-12 appear to be intact Skin: normal color, warm/dry, no rash Heri Duke MD, [facility] hospitalist group (Heri Urias MD)
[2017-09-01] MEDS: LATANOPROST 0.005% OP SOLN 2.5 ML BTL OPB SCH (21:00)
[2017-09-01] MEDS ORDERED: DARUNAVIR ETHANOLATE 800 MG TAB PO SCH ×2 (21:00)
[2017-09-01] MEDS ORDERED: ELVITEGRAVIR COBICISTAT EMTRIC PO SCH (21:00)
[2017-09-02 05:20] LABS: HEMATOCRIT 24.2 % (42-52); MEAN CELL VOLUME 94.5 fL (80-100); MEAN CORPUSCULAR HEMOGLOBIN 31.3 pg (25-34); MEAN CORPUSCULAR HGB CONC 33.1 g/dl (32-36); MEAN PLATELET VOLUME 10.6 fL (7.4-10.4); PLATELET COUNT 267 K/uL (130-400); RED CELL DISTRIBUTION WIDTH CV 15.3 % (11.5-14.5); RED CELL DISTRIBUTION WIDTH SD 51.8 fL (36.4-46.3); WHITE BLOOD COUNT 7.89 K/uL (4.8-10.8)
[2017-09-02 05:46] LABS: CALCIUM 7.1 mg/dl (8.5-10.1); CREATININE 2.49 mg/dl (0.60-1.40)
[2017-09-02 07:25] VITALS: BP 144/73; PULSE 73; TEMP 37.2; O2SAT 97
[2017-09-02] MEDS ORDERED: INSULIN GLARGINE SOLOSTAR 100 UNITS/ML 3 ML PEN SC SCH (09:00)
[2017-09-02] MEDS: SENNA 8.8 MG/5 ML UDP PO SCH (09:00)
[2017-09-02] MEDS ORDERED: ELVITEGRAVIR COBICISTAT EMTRIC PO SCH (09:00)
[2017-09-02] MEDS: CARVEDILOL 12.5 MG TAB PO SCH (09:57)
[2017-09-02] MEDS: ATORVASTATIN 40 MG TAB PO SCH (09:57)
[2017-09-02] MEDS: AMLODIPINE BESYLATE 5 MG TAB PO SCH (09:58)
[2017-09-02] MEDS: FINASTERIDE 5 MG TAB PO SCH (09:58)
[2017-09-02] MEDS: INSULIN ASPART 100 UNITS/ML 3 ML PEN SC SCH ×2 (10:12→13:57)
--- NOTE | 2017-09-02 11:15 | Hospitalist Progress Note ---
Hospitalist Progress Note Date of Service Sep 02, 2017. (Madelyn Buckley ., MARGE) Subjective Pt evaluation today including: conversation w/ patient, physical exam, lab review, review of studies, review of inpatient medication list Voiding: no voiding problems Patient resting in bed. Eating and drinking OK. No more loose stools. No abdominal pain. Questioning remaining staple removal- per Dr. Elizabeth, in 1 week. Patient denies any fever, chills, sweats, lightheadedness, dizziness, vision changes, CP, palpitations, edema, SOB, wheezing, cough, abdominal pain, nausea, vomiting, diarrhea, urinary symptoms, melena, numbness/tingling, weakness, muscle/joint pain, anxiety/depression, active bleeding, or new skin discoloration/changes. (Madelyn Buckley, RUDDYC) Medications Current Inpatient Medications Medications (Trade) Dose Ordered Sig/Carlin Route Start Time Stop Time Status Last Admin Dose Admin Acetaminophen (Tylenol Tab) 650 mg Q4H PRN PO 08/17/17 13:45 09/16/17 13:44 08/31/17 23:44 650 MG Al Hydrox/Mg Hydrox/Simethicone (Maalox Max Susp) 15 ml Q4H PRN PO 08/17/17 13:45 09/16/17 13:44 08/18/17 21:37 15 ML Magnesium Hydroxide (Milk Of Magnesia Susp) 30 ml Q6H PRN PO 08/17/17 13:45 09/16/17 13:44 Polyethylene (Miralax Powder Packet) 17 gm DAILY PRN PO 08/17/17 15:00 09/16/17 14:59 Ondansetron HCl (Zofran Inj) 4 mg Q6H PRN IV 08/17/17 13:45 09/16/17 13:44 08/23/17 05:47 4 MG Glucose (Glucose 40% Gel) 15-30 GRAMS 15 GRAMS... UD PRN PO 08/17/17 13:45 09/16/17 13:44 Glucose (Glucose Chew Tab) 4-8 Tablets 4 Tabl... UD PRN PO 08/17/17 13:45 09/16/17 13:44 Dextrose (Dextrose 50% 50ML Syringe) 25-50ML OF 50% DW IV FOR... UD PRN IV 08/17/17 13:45 09/16/17 13:44 Glucagon (Glucagon Inj) 1 mg UD PRN SQ 08/17/17 13:45 09/16/17 13:44 Latanoprost (Xalatan Oph Soln) 1 drops HS OPB 08/17/17 21:00 09/16/17 20:59 09/01/17 21:00 1 DROPS Atorvastatin Calcium (Lipitor Tab) 40 mg QAM PO 08/18/17 09:00 09/17/17 08:59 Future hold 09/02/17 09:57 40 MG Carvedilol (Coreg Tab) 18.75 mg BID PO 08/17/17 21:00 09/16/17 20:59 09/02/17 09:57 18.75 MG Finasteride (Proscar Tab) 5 mg DAILY PO 08/18/17 09:00 09/17/17 08:59 Future hold 09/02/17 09:58 5 MG Non-Formulary Medication (Darunavir Ethanolate (Prezista)) 800 mg HS PO 08/17/17 21:00 09/16/17 20:59 UNV Zolpidem Tartrate (Ambien Tab) 5 mg HS PRN PO 08/18/17 22:00 09/17/17 21:59 Future Hold 08/18/17 23:16 5 MG Hydralazine HCl (HydrALAZINE INJ) 10 mg Q6H PRN IV. 08/19/17 10:30 09/18/17 10:29 08/26/17 16:39 10 MG Menthol (Nice Nory) 1 nory Q1H PRN PO 08/19/17 18:45 09/18/17 18:44 08/19/17 18:53 1 NORY Albuterol/ Ipratropium (Duoneb) 3 ml Q6H PRN INH 08/20/17 12:00 09/18/17 11:59 08/20/17 19:58 3 ML Hydromorphone HCl (Dilaudid Inj) 0.5 mg Q3H PRN IV 08/20/17 13:30 09/03/17 13:29 08/24/17 19:17 0.5 MG Hydromorphone HCl (Dilaudid Inj) 1 mg Q3H PRN IV 08/20/17 13:30 1/26/18 13:29 08/25/17 15:54 1 MG Amlodipine Besylate (Norvasc Tab) 10 mg QAM PO 08/23/17 09:00 09/22/17 08:59 09/02/17 09:58 10 MG Dextrose 1,000 ml @ 0 mls/hr Q0M PRN IV 08/23/17 16:00 09/22/17 15:59 Senna (Senokot Syrup) 8.8 mg BID PO 08/24/17 09:00 09/23/17 08:59 08/27/17 08:38 8.8 MG Heparin Sodium (Porcine) (Heparin 10 Unit/ ml 5 ml Flush) 5 ml PRN PRN FLUSH 08/25/17 02:15 09/24/17 02:14 09/02/17 05:04 5 ML Estradiol (Estradiol 0.1 Mg Transdermal) 0.1 mg Mo@0900 TD 08/30/17 18:00 09/29/17 17:59 08/30/17 18:37 0.1 MG Miscellaneous (Remove Patch) 1 ea Mo@0859 N/A 08/30/17 17:59 09/29/17 17:58 Insulin Aspart (novoLOG ASPART) SLIDING SCALE If C... ACHS SC 08/31/17 08:30 09/30/17 08:29 09/02/17 10:12 8 UNITS Iron Sucrose 200 mg/Sodium Chloride 110 ml @ 420 mls/hr Q2D IV 08/31/17 13:00 09/08/17 13:16 08/31/17 14:05 420 MLS/HR Insulin Glargine (Lantus Solostar Pen) 4 units QAM SC 09/02/17 09:00 10/02/17 08:59 09/02/17 10:13 4 UNITS Elvitegravir/ Cobicis/Emtricit/ Tenof (Genvoya 141-855-711-10 Mg) 1 tab DAILY PO 09/02/17 09:00 09/17/17 08:59 09/02/17 10:16 1 TAB (Madelyn Buckley, MARGE) Objective Vital Signs Date Time Temp Pulse Resp B/P (MAP) Pulse Ox O2 Delivery O2 Flow Rate FiO2 09/02/17 07:25 37.2 73 16 144/73 (96) 97 Room Air 09/01/17 23:35 98 Room Air 09/01/17 22:38 37.4 73 18 142/69 (93) 98 Room Air 09/01/17 21:31 69 155/70 (98) 09/01/17 17:00 Room Air 09/01/17 15:39 36.5 66 18 165/80 (108) 99 Room Air 09/01/17 15:13 37.3 67 18 149/70 99 09/01/17 14:15 36.7 66 18 147/74 09/01/17 13:57 36.7 66 18 154/70 09/01/17 13:27 36.6 66 18 139/75 09/01/17 12:58 36.6 67 18 147/80 09/01/17 12:41 36.7 65 18 151/73 (Madelyn Buckley, PA-C) Physical Exam General Appearance: no apparent distress Eyes: normal inspection, PERRL ENT: hearing grossly normal Neck: supple Respiratory/Chest: lungs clear, no respiratory distress, no accessory muscle use Cardiovascular: regular rate, rhythm Abdomen: normal bowel sounds, non tender, soft Extremities: no pedal edema, no calf tenderness Neurologic/Psychiatric: alert, normal mood/affect, oriented x 3 Skin: normal color, warm/dry, no rash (Madelyn Buckley ., PA-C) Laboratory Results Last 24 Hours Test 09/01/17 12:27 09/01/17 17:00 09/01/17 20:32 09/02/17 05:03 Bedside Glucose 150 mg/dl 100 mg/dl 140 mg/dl White Blood Count 7.89 K/uL Red Blood Count 2.56 M/uL Hemoglobin 8.0 g/dL Hematocrit 24.2 % Mean Corpuscular Volume 94.5 fL Mean Corpuscular Hemoglobin 31.3 pg Mean Corpuscular Hemoglobin Concent 33.1 g/dl RDW Standard Deviation 51.8 fL RDW Coefficient of Variation 15.3 % Platelet Count 267 K/uL Mean Platelet Volume 10.6 fL Sodium Level 137 mmol/L Potassium Level 5.0 mmol/L Chloride Level 111 mmol/L Carbon Dioxide Level 20 mmol/L Anion Gap 6.0 mmol/L Blood Urea Nitrogen 41 mg/dl Creatinine 2.49 mg/dl Est Creatinine Clear Calc Drug Dose 25.4 ml/min Estimated GFR () 30.7 Estimated GFR (Non- 26.5 BUN/Creatinine Ratio 16.7 Random Glucose 144 mg/dl Calcium Level 7.1 mg/dl Test 09/02/17 08:30 Bedside Glucose 124 mg/dl (Madelyn Buckley, PAMandy) Assessment and Plan 61 y/o transgender female with a history of HTN, HLD, sick sinus syndrome s/p pacemaker 04/26/17, DM II, CKD stage III, anemia of chronic disease, and HIV who presented to the ED on 08/16 from [facility] with abdominal pain, nausea and vomiting. Pt afebrile, VSS on arrival. O2 sat did drop to 85%, placed on 2L NC. CXR with possible left base consolidation vs atelectasis. CT abdomen/ pelvis with distal small bowel obstructive change and inflammatory change of the appendix with associated appendicolith. Creatinine 2.50, elevated above baseline. POC lactic acid 2.15. LFTs elevated. s/p ex-lap on 08/[address] Elizabeth for SBO, finding ruptured appendicitis with abscess formation: - NG tube placed on 08/19- removed on 08/22 and diet advanced to clears- did not tolerated and NG replaced on 08/23- placed PICC line and started TPN on 08/24- stopped on 08/31 -- Removed NG tube 08/27, SLOWLY advancing diet- advance to low residue on , tolerating well - Treated w/ IVF @ 100 ml/hr while NPO- ECHO from 04/2017 w/ preserved EF - Morphine 4 mg IV q4h, IV Dilaudid PRN for pain management - Abdominal cultures growing Pseudomonas/anaerobic gram + bacilli- sensitives reviewed- IV Cipro + Flagyl- completed x10 days- ID following - General surgery consulted, appreciate recommendations- surgical management as per surgery -- f/u in 2 weeks -- Remove remaining bryson in 1 week (09/08) - GI consulted, appreciate recommendations Acute respiratory and metabolic acidosis secondary to LEEROY- RESOLVED: - ICU due to postop anesthesia complications/renal failure- STABLE- transferred to tele on 08/21 and med/surg on 08/22 - DuoNebs QID and PRN - CXR on 08/23- PNA vs atelectasis -- Likely atelectasis due to no cough/sputum production, fever/chills, or WBC - however, IV Cipro coverage as above -- Encourage incentive spirometer, ambulation, OOB in chair QS - Nephrology following LEEROY on CKD stage II, likely secondary to ATN- 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-2.5- fiscal analyst 2.49 today- RESOLVED, anemia of chronic disease- baseline hgb 10: - Avoid nephrotoxic agents and renally dose medications as appropriate - Follow PRP and UO - Nephrology consulted, appreciate recommendations- no need for acute HD at this time, IV Venofer for a total of 1 gm - H&H- 8.0 today- continue to follow and transfuse PRN hgb < 7.0 or symptomatic -- Transfuse 1 unit PRBCs on 09/01 HTN, HLD, sick sinus syndrome s/p pacemaker 04/26/17: - Lipitor 40 mg PO daily- resume today - Continue Coreg 18.75 mg PO BID and Norvasc 10 mg daily - IV Hydralazine PRN T2DM- last HgbA1c 5.0%: - Hold Glipizide while inpatient - Hyperglycemia- Lantus 4 u daily and adjust PRN - BSG ACHS and ISS HIV: Continue Genvoya 1 tab PO qd and Prezista 800 mg PO HS BPH: Continue Proscar 5 mg PO qd Glaucoma: Continue Latanoprost drops GI prophylaxis: IV Pepcid DVT prophylaxis: Heparin SQ BID held due to worsening anemia; encouraged ambulation Code Status: LEVEL I, FULL Dispo: From [facility]- hopeful discharge in the next 1-2 days if H&H stabilizes (Madelyn Buckley, PAGenetC) I personally interviewed and examined the patient. I agree with history of present illness and physical exam mentioned above, I also performed my own history taking and examination. Past medical history and review of system has been obtained by myself I reviewed all pertinent labs and studies Reviewed current medications I discussed and formulated of the assessment and plan mentioned above with Miss Buckley Please refer to the Summary mentioned below. 61 year old man transgender to female with history of hypertension, dyslipidemia , sick sinus syndrome status post pacemaker, chronic kidney disease stage III, chronic anemia secondary to chronic disease, HIV on HAART presented to the hospital with abdominal pain nausea and vomiting secondary to ruptured appendix status post exploratory laparoscopy and appendectomy. Currently significantly improved tolerated well. Abdominal cultures grew Pseudomonas/anaerobic gram + bacilli-, completed course of Cipro/Flagyl discontinued TPN Patient also had acute kidney injury on admission, improved Yesterday restarted HAAART medications, patient does not want the guards to know that she is on HAART. given estrogen patch as per her request, she understands that estrogen increased risk of blood clots, Patient is stable today for discharge General Appearance: not in acute distress Eyes: normal Sclerae, extraocular muscle intact ENT: hearing grossly normal Neck: supple Respiratory/Chest: normal air entry bilateral ,no respiratory distress, no accessory muscle use Cardiovascular: regular rate, rhythm, no murmur Abdomen: non tender, soft, no masses Extremities: no edema Neurologic/Psychiatric: Awake alert oriented times place and person moves all extremities sensation intact cranial nerves II-12 appear to be intact Skin: normal color, warm/dry, no rash Heri Duke MD, [facility] hospitalist group (Heri Urias MD)
--- NOTE | 2017-09-02 12:46 | Surgery Progress Note ---
Surgery Progress Note Date of Service Sep 02, 2017. Subjective tolerating diet Objective Vital Signs: Date Time Temp Pulse Resp B/P (MAP) Pulse Ox O2 Delivery O2 Flow Rate FiO2 09/02/17 09:40 Room Air 09/02/17 07:25 37.2 73 16 144/73 (96) 97 Room Air 09/01/17 23:35 98 Room Air 09/01/17 22:38 37.4 73 18 142/69 (93) 98 Room Air 09/01/17 21:31 69 155/70 (98) 09/01/17 17:00 Room Air 09/01/17 15:39 36.5 66 18 165/80 (108) 99 Room Air 09/01/17 15:13 37.3 67 18 149/70 99 09/01/17 14:15 36.7 66 18 147/74 09/01/17 13:57 36.7 66 18 154/70 09/01/17 13:27 36.6 66 18 139/75 09/01/17 12:58 36.6 67 18 147/80 General Appearance: no apparent distress Respiratory/Chest: no respiratory distress Abdomen: soft Laboratory Results: Results Past 24 Hours Test 09/01/17 17:00 09/01/17 20:32 09/02/17 05:03 09/02/17 08:30 Range/Units Bedside Glucose 100 140 124 70-99 mg/dl White Blood Count 7.89 4.8-10.8 K/uL Red Blood Count 2.56 4.7-6.1 M/uL Hemoglobin 8.0 14.0-18.0 g/dL Hematocrit 24.2 42-52 % Mean Corpuscular Volume 94.5 80-100 fL Mean Corpuscular Hemoglobin 31.3 25-34 pg Mean Corpuscular Hemoglobin Concent 33.1 32-36 g/dl RDW Standard Deviation 51.8 36.4-46.3 fL RDW Coefficient of Variation 15.3 11.5-14.5 % Platelet Count 267 130-400 K/uL Mean Platelet Volume 10.6 7.4-10.4 fL Sodium Level 137 136-145 mmol/L Potassium Level 5.0 3.5-5.1 mmol/L Chloride Level 111 98-107 mmol/L Carbon Dioxide Level 20 21-32 mmol/L Anion Gap 6.0 3-11 mmol/L Blood Urea Nitrogen 41 7-18 mg/dl Creatinine 2.49 0.60-1.40 mg/dl Est Creatinine Clear Calc Drug Dose 25.4 ml/min Estimated GFR () 30.7 Estimated GFR (Non- 26.5 BUN/Creatinine Ratio 16.7 10-20 Random Glucose 144 70-99 mg/dl Calcium Level 7.1 8.5-10.1 mg/dl Assessment & Plan 09/02/17- no acute chgs- d/c when ok with med team 09/01/17- For transfusion. At this point can d/c back to longterm when medically stable- keep picc line until d/c. will place instructions, f/u in EMR. 08/31/17- will advance to low fiber diet- stop Tpn when current bag complete- cont IV atbx for now. check labs- overall making slow progress 08/30/17- slowly improving GI function- Cont Tpn, try full liquids. d/c drain, check H/H, hold SC Heparin. Expect loose bms Continue IV atbx- ID following 08/27/17- some concern for distention and mild ileus but minimal NG output and some bowel function. Tpn helping with edema/protein status. will try to d/c NG and limit po today- very slowly adv diet. may need NG back in if vomits. Dr Wren covering over weekend 08/26/17- some slow improvement- not yet convinced GI activity ready for removal of NG- cont Tpn, try sips of clears w/ NG clamped. increase mobility if possible 08/25/17- intraop cult- pseudomonas- sens to Cipro- discussed with Dr Darnell- cont same for now- ID will see as pt is HIV + 08/25/17- will order Tpn- central w/ picc line, d/c velazquez, leave drain. cont NG as he is still distended. overall some progress but expected to be slow. coughing up loose secretions- cont atbx 08/24/17- ileus not unexpected- ppn ordered- not started- pharmacy notified. Will probably benefit from picc line for addnl calories cont NG, try some Reglan. cont wound care, IV atbx 08/23/17- pt s/p laparotomy , lysis of adhesions, drainage abd abscess appendectomy- at risk for ileus- vomited- check film, clears only if vomits again will need NG- order periph tpn- may need Picc line ambulate 08/20/17- GI evaluation noted- on IV atbx- distention of abd same or worse will try to give some contrast via NG and rescan pt- no IV contrast considering abd exploration- will also discuss with GI 08/19/17- Persistent distention- ? gastric, ? bowel- atypical for mechanical sbo - will have NG placed, check labs, will possibly need contrast study but will not tolerate po- ask GI to see . may come explor lap if does not resolve 08/18/17- will try full liquids- nephrology checking on pt will cont to follow progress 09/01/17- For transfusion. At this point can d/c back to longterm when medically stable- keep picc line until d/c. will place instructions, f/u in EMR. 08/31/17- will advance to low fiber diet- stop Tpn when current bag complete- cont IV atbx for now. check labs- overall making slow progress 08/30/17- slowly improving GI function- Cont Tpn, try full liquids. d/c drain, check H/H, hold SC Heparin. Expect loose bms Continue IV atbx- ID following 08/27/17- some concern for distention and mild ileus but minimal NG output and some bowel function. Tpn helping with edema/protein status. will try to d/c NG and limit po today- very slowly adv diet. may need NG back in if vomits. Dr Wren covering over weekend 08/26/17- some slow improvement- not yet convinced GI activity ready for removal of NG- cont Tpn, try sips of clears w/ NG clamped. increase mobility if possible 08/25/17- intraop cult- pseudomonas- sens to Cipro- discussed with Dr Darnell- cont same for now- ID will see as pt is HIV + 08/25/17- will order Tpn- central w/ picc line, d/c velazquez, leave drain. cont NG as he is still distended. overall some progress but expected to be slow. coughing up loose secretions- cont atbx 08/24/17- ileus not unexpected- ppn ordered- not started- pharmacy notified. Will probably benefit from picc line for addnl calories cont NG, try some Reglan. cont wound care, IV atbx 08/23/17- pt s/p laparotomy , lysis of adhesions, drainage abd abscess appendectomy- at risk for ileus- vomited- check film, clears only if vomits again will need NG- order periph tpn- may need Picc line ambulate 08/20/17- GI evaluation noted- on IV atbx- distention of abd same or worse will try to give some contrast via NG and rescan pt- no IV contrast considering abd exploration- will also discuss with GI 08/19/17- Persistent distention- ? gastric, ? bowel- atypical for mechanical sbo - will have NG placed, check labs, will possibly need contrast study but will not tolerate po- ask GI to see . may come explor lap if does not resolve 08/18/17- will try full liquids- nephrology checking on pt will cont to follow progress
--- NOTE | 2017-09-02 13:25 | Discharge Instructions ---
Discharge Instructions Date of Service Sep 02, 2017. Admission Reason for Admission: Abdominal Pain Discharge Discharge Diagnosis / Problem: SBO secondary to abscess formation from ruptured appendix Discharge Goals Goal(s): Decrease discomfort, Improve function, Increase independence, Improve disease control, Improve nutritional status, Learn about illness, Diagnostic testing, Therapeutic intervention, Prevent Disease Progression Activity Recommendations Activity Level: Up Ad Gema Limitations as per surgery recommendations Additional Information Patient informed of condition: Yes Advance Directives: No DNR: No Level of Care: Other ([facility] ) Communicable Disease: No Prognosis: Improving Mathis Catheter: No Instructions / Follow-Up Instructions / Follow-Up s/p ex-lap on 08/[address] Elizabeth for SBO, finding ruptured appendicitis with abscess formation: - Morphine 4 mg IV q4h, IV Dilaudid PRN for pain management- required no PRN pain medication while inpatient - Abdominal cultures growing Pseudomonas/anaerobic gram + bacilli- sensitives reviewed- IV Cipro + Flagyl- completed x10 days- ID following - General surgery consulted, appreciate recommendations- surgical management as per surgery -- f/u in 2 weeks -- Remove remaining alicia in 1 week (09/08) Acute respiratory and metabolic acidosis secondary to LEEROY- RESOLVED: - ICU due to postop anesthesia complications/renal failure- STABLE- transferred to tele on 08/21 and med/surg on 08/22 - DuoNebs QID and PRN - CXR on 08/23- PNA vs atelectasis -- Likely atelectasis due to no cough/sputum production, fever/chills, or WBC - however, IV Cipro coverage as above -- Encourage incentive spirometer, ambulation, OOB in chair QS - Nephrology following LEEROY on CKD stage II, likely secondary to ATN- 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- furniture delivery driver 2.49 today- RESOLVED, anemia of chronic disease- baseline hgb 10: - Nephrology consulted, appreciate recommendations- no need for acute HD - H&H- 8.0 today- continue to follow H&H - Continue iron supplement HTN, HLD, sick sinus syndrome s/p pacemaker 04/26/17: Continue Coreg 18.75 mg PO BID, Norvasc 10 mg daily, Lipitor 40 mg daily, Bumex 0.5 mg daily T2DM- last HgbA1c 5.0%: Continue Glipizide HIV: Continue Genvoya 1 tab PO qd and Prezista 800 mg PO HS BPH: Continue Proscar 5 mg PO qd Glaucoma: Continue Latanoprost drops Code Status: LEVEL I, FULL Dispo: Discharge to [facility] FOLLOW-UPS: Please follow-up with [facility] provider within 24-48 hours Please follow-up with General surgery within 2 weeks Please follow-up/keep all of your subspecialty appointments Current Hospital Diet Patient's current hospital diet: Low Fiber Diet, Diabetes Type 2 Diet Discharge Diet Recommended Diet: Diabetes Type 2 Diet, Low Fiber Diet Procedures Procedures Performed: Laparotomy, Drainage of Intra-Abdominal Abcess, Appendectomy Pending Studies Studies pending at discharge: no Physician Orders On Transfer Dressing Changes: Routine abdominal incision site care Alicia to be removed in 1 week IV Therapy: None Vital Signs: Routine POLST Discussion: Not Applicable Laboratory Results Hemoglobin A1c Test 08/17/17 14:21 Range/Units Estimated Average Glucose 97 mg/dl Hemoglobin A1c 5.0 4.5-5.6 % Lipid Panel Test 08/31/17 05:56 Range/Units Triglycerides Level 154 H 0-150 mg/dl Medical Emergencies . Who to Call and When: Medical Emergencies: If at any time you feel your situation is an emergency, please call 911 immediately. . Non-Emergent Contact Non-Emergency issues call your: Primary Care Provider Call Non-Emergent contact if: you have a fever, your pain is not controlled, your pain is worsening, your pain is unusual for you, your pain is concerning you, wound has increased drainage, wound has increased redness, wound has increased pain, you have any medication questions . . "Provider Documentation" section prepared by Madelyn Buckley. . Core Measure Problem Core Measures: None
--- NOTE | 2017-09-02 13:35 | Discharge Summary ---
Discharge Summary Date of Service Sep 02, 2017. Discharge Summary Admission Date: Aug 17, 2017 at 13:58 Discharge Date: Sep 02, 2017 Discharge Disposition: Acute care facility ([facility] ) Principal Diagnosis: SBO secondary to abscess formation from ruptured appendix Problems/Secondary Diagnoses: s/p ex-lap on 08/[address] Elizabeth for SBO, finding ruptured appendicitis with abscess formation Acute respiratory and metabolic acidosis secondary to LEEROY LEEROY on CKD stage II, likely secondary to ATN anemia of chronic disease- HTN HLD sick sinus syndrome s/p pacemaker 04/26/17 T2DM- last HgbA1c 5.0% HIV BPH Glaucoma Procedures: CHEST ONE VIEW PORTABLE CLINICAL HISTORY: Cough. COMPARISON STUDY: Chest CT July 20, 2017. FINDINGS: A dual lead left subclavian pacemaker is in place. There is no pneumothorax or pleural effusion. There is moderate enlargement of the cardiac silhouette. There is mild interstitial thickening. No lobar consolidation is present. IMPRESSION: 1. Mild interstitial thickening which could reflect pulmonary vascular congestion or an infectious process. 2. Moderate enlargement of the cardiac silhouette. 3. Mild left lower opacity which could reflect atelectasis or consolidation. Electronically signed by: Gustavo Kathleen M.D. 08/17/2017 10:04 AM Dictated Date/Time: 08/17/2017 10:00 AM The status of this report is Signed. Draft = Not yet reviewed or approved by Radiologist. Signed = Reviewed and approved by Radiologist. ABD/PELVIS NO IV OR ORAL CONT CT DOSE: 266.28 mGy.cm HISTORY: Pain abd pain TECHNIQUE: Multiaxial CT images of the abdomen and pelvis were performed without contrast. A dose lowering technique was utilized adhering to the principles of ALARA. COMPARISON STUDY: None. FINDINGS: Bibasilar parenchymal infiltrative change. Cardiomegaly. Pericardial effusion with maximum thickness of 11 mm. Bipolar cardiac pacemaker. Liver spleen and pancreas are uniform. Multiple fluid-filled loops of distended small bowel. Gallstones within a nondistended gallbladder lumen. No significant colonic distention. 6 mm appendicolith near the base of the appendix. Diameter of the appendix is difficult to ascertain given the complete absence of oral contrast. Small amount of free fluid within the right and to a lesser extent left paracolic gutter. It is impossible to entirely exclude the possibility of appendicitis versus reactive inflammatory change of the appendix. Bladder is midline. Minimal degenerative changes of the thoracolumbar spine. IMPRESSION: 1. Bibasilar parenchymal infiltrates with a pericardial effusion having a maximum thickness of 11 mm. 2. Findings consistent with distal small bowel obstructive change with potential underlying primary or reactive inflammatory change of the appendix with a 6 mm associated appendicolith. 3. Small amount of free fluid within the right and to a lesser extent left paracolic gutter. 4. No evidence for well-defined abscess or collection within limitations of a completely unenhanced study. The above report was generated using voice recognition software. It may contain grammatical, syntax or spelling errors. Electronically signed by: Davion Lopez M.D. 08/17/2017 11:53 AM Dictated Date/Time: 08/17/2017 11:36 AM The status of this report is Signed. Draft = Not yet reviewed or approved by Radiologist. Signed = Reviewed and approved by Radiologist. ABDOMEN 2 VIEWS HISTORY: Abdominal distention. COMPARISON: Abdomen and pelvis CT 08/17/2017. FINDINGS: Nasogastric tube terminates in the stomach. Pacemaker wires are noted. No definite pneumoperitoneum or pneumatosis. Mildly dilated gas-filled loops of small bowel are seen within the midabdomen. There is gas within the nondistended right colon. Small bowel loops measure up to 3.5 cm in diameter. This is similar to the prior study. Small fluid level seen within the distended loops of small bowel. Small left pleural effusion and left basilar densities. IMPRESSION: No change in the small bowel obstruction. Nasogastric tube terminates in the proximal stomach. Electronically signed by: Virgilio Corbett M.D. 08/19/2017 8:47 AM Dictated Date/Time: 08/19/2017 8:45 AM The status of this report is Signed. Draft = Not yet reviewed or approved by Radiologist. Signed = Reviewed and approved by Radiologist. CT SCAN OF THE ABDOMEN AND PELVIS WITHOUT CONTRAST CLINICAL HISTORY: Small bowel obstruction. Possible enteritis. COMPARISON STUDY: CT scan dated 08/17/2017 TECHNIQUE: CT scan of the abdomen and pelvis was performed from the lung bases to the proximal femurs. Images are reviewed in the axial, sagittal, and coronal planes. IV contrast was not administered for this examination. A dose lowering technique was utilized adhering to the principles of ALARA. CT DOSE: 314.11 mGycm FINDINGS: Lower chest: There is bibasal atelectasis/consolidation. The heart is enlarged with a [id number] pericardial effusion. Liver: The unenhanced liver is normal in size, contour, and attenuation. There is no intrahepatic biliary ductal dilatation. Gallbladder: Cholelithiasis Spleen: Normal in size and attenuation. Pancreas: Unremarkable. Adrenal glands: Unremarkable. Kidneys: The unenhanced kidneys are normal in size without hydronephrosis. There is no contour deforming renal mass lesion. No renal calculi are identified. Bowel: There is progressive small bowel dilatation with fluid-filled small bowel loops. The distal small bowel and colon are normal caliber. The findings are indicative of a high-grade small bowel obstruction. No pneumatosis is visualized. No portal venous gas is visualized. This should be noted that bowel evaluation is difficult due to the lack of intravenously administered contrast, as well as given the paucity of intra-abdominal fat. Peritoneum: There is no intraperitoneal free air or abdominal ascites. Vasculature: The abdominal aorta is normal in course and caliber. Adenopathy: None. Pelvic viscera: The bladder, and pelvic viscera are unremarkable. Skeletal structures: No destructive osseous lesions are seen. IMPRESSION: 1. Worsening high grade small bowel obstruction with progressive small bowel dilatation. 2. Persistent pericardial effusion 3. Worsening bibasilar atelectasis/consolidation. 4. Cholelithiasis Electronically signed by: Barron Alonso M.D. 08/20/2017 9:37 AM Dictated Date/Time: 08/20/2017 9:30 AM The status of this report is Signed. Draft = Not yet reviewed or approved by Radiologist. Signed = Reviewed and approved by Radiologist. ABDOMEN 2VIEW W/PA CHEST RTN HISTORY: 61 years-old Male sbo follow-up study in a patient with small bowel obstruction COMPARISON: CT 08/20/2017, abdominal radiographs 08/19/2017 TECHNIQUE: AP view of the chest with left lateral decubitus and supine views of the abdomen FINDINGS: Cardiac silhouette is again mildly enlarged. Left pectoral pacer is noted with leads unchanged. No pneumothorax. Persistent patchy bibasilar opacities are noted, left greater than right. Dilated loops of small bowel are again seen throughout the abdomen measuring up to 4.1 cm transversely which has not significantly changed from comparison. No pneumoperitoneum on the decubitus film. Skin bryson overlie the midline lower abdomen. No abnormal calcifications. Drainage catheter overlies the pelvis. IMPRESSION: 1. Persistent dilated loops of small bowel throughout the abdomen. 2. Patchy bibasilar opacities again noted suggesting atelectasis or pneumonia. The above report was generated using voice recognition software. It may contain grammatical, syntax or spelling errors. Electronically signed by: Dickson Tate M.D. 08/23/2017 8:01 AM Dictated Date/Time: 08/23/2017 7:58 AM The status of this report is Signed. Draft = Not yet reviewed or approved by Radiologist. Signed = Reviewed and approved by Radiologist. CHEST ONE VIEW PORTABLE CLINICAL HISTORY: PICC placement +bullseye with VPS; pt has pacemaker CXR verify COMPARISON STUDY: 08/23/2017 FINDINGS: PICC catheter place in the superior vena cava. No evidence of pneumothorax. Nasogastric tube within the stomach. All remaining components of the study are similar. IMPRESSION: PICC catheter place in this. Vena cava. No evidence pneumothorax. Nasogastric tube within the stomach. The above report was generated using voice recognition software. It may contain grammatical, syntax or spelling errors. Electronically signed by: Davion Lopez M.D. 08/24/2017 4:20 PM Dictated Date/Time: 08/24/2017 4:19 PM The status of this report is Signed. Draft = Not yet reviewed or approved by Radiologist. Signed = Reviewed and approved by Radiologist. ABDOMEN 2 VIEWS HISTORY: 61 years-old Male NG position and h/o sbo status post placement of enteric tube. COMPARISON: Acute abdominal series radiographs 08/23/2015 TECHNIQUE: 2 views of the abdomen FINDINGS: Status post placement of an enteric tube with distal tip overlying the right upper abdomen within the expected region of the distal gastric lumen. Dilated loops of small bowel are again seen throughout the abdomen with air-fluid levels. Loops of bowel measure up to approximately 4.8 cm. This appears generally stable to slightly worsened from comparison. No definite pneumatosis or pneumoperitoneum. Pacer leads are seen overlying the heart. Left basilar consolidation redemonstrated probable small right pleural effusion. Skin bryson are seen overlying the midline lower abdomen. Drainage catheter overlies the left pelvis. No fracture or urolith. IMPRESSION: 1. Enteric tube overlies the right upper abdomen in the expected region of the distal gastric lumen. 2. Stable to slightly progressed small bowel dilation. The above report was generated using voice recognition software. It may contain grammatical, syntax or spelling errors. Electronically signed by: Dickson Tate M.D. 08/26/2017 8:40 AM Dictated Date/Time: 08/26/2017 8:37 AM The status of this report is Signed. Draft = Not yet reviewed or approved by Radiologist. Signed = Reviewed and approved by Radiologist. DICTATED BY: Shakeel Elizabeth M.D. DATE OF OPERATION: 08/20/2017 PREOPERATIVE DIAGNOSIS: Small-bowel obstruction. POSTOPERATIVE DIAGNOSIS: Same from ruptured appendix and adhesions as well as intra-abdominal abscess. NAME OF OPERATION: Exploratory laparotomy with drainage of intra-abdominal abscess and appendectomy. STAFF SURGEON: Dr. Elizabeth. VETERINARY VIROLOGIST: Roshan Donaldson PA-C. ANESTHESIA: General. FINDINGS: The patient had cloudy intra-abdominal fluid with adhesions of the small bowel within the pelvis and right lower quadrant from contained abscess from a ruptured appendix causing a small-bowel obstruction. Consultations: Nephrology General surgery GI Rn Surgical Pcu Infectious disease Medication Reconciliation Continued Medications: Amlodipine Besylate (Norvasc) 10 Mg Tab 1 TAB PO DAILY for 30 Days, #30 TAB 5 Refills Atorvastatin (Lipitor) 40 Mg Tab 40 MG PO QAM for 30 Days, #30 TAB Bumetanide (Bumex) 0.5 Mg Tab 0.5 MG PO DAILY Carvedilol (Carvedilol) 12.5 Mg Tab 18.75 MG PO BID for 30 Days Darunavir Ethanolate (Prezista) 800 Mg Tab 800 MG PO HS Pcyfgsvohyxb-Fagfgndykj-Qrddoe (Genvoya [phone] mg) 1 Tab Tab 1 TAB PO DAILY Estradiol (Climara) 0.1 Mg/24 Hr Dis 0.1 MG TOP DAILY Ferrous Sulfate (Ferrous Sulfate) 325 Mg Tab 325 MG PO BIDM for 30 Days, TAB Finasteride (Proscar) 5 Mg Tab 5 MG PO DAILY, TAB Glipizide (Glucotrol) 10 Mg Tab 10 MG PO BID, TAB Glucose (Bd Glucose) 1 Tab Chew 4 MG PO QID PRN for PRN Latanoprost 0.005% Oph (Xalatan 0.005% Oph) Soln 1 DROP OPB HS Multivitamin (Multivitamin) Tab 1 TAB PO DAILY, TAB Referrals At Discharge Follow up Referrals: Surgery Referral - Within 2 Weeks with Shakeel Eliazbeth M.D. Discharge Exam Review of Systems: Constitutional: No fever, No chills, No sweats, No weakness, No fatigue Eyes: No worsening of vision ENT: No hearing loss Respiratory: No cough, No shortness of breath, No hemoptysis Cardiovascular: No chest pain, No edema, No palpitations Abdomen: No pain, No nausea, No vomiting, No diarrhea, No constipation, No GI bleeding Musculoskeletal: No joint pain, No muscle pain, No swelling, No calf pain Genitourinary - Male: No hematuria, No dysuria Neurologic: No weakness, No numbness/tingling Psychiatric: No depression symptoms, No anxiety Endocrine: No fatigue Hematologic / Lymphatic: No abnormal bleeding/bruising Integumentary: No rash, No itch, No new/changing skin lesions Physical Exam: General Appearance: no apparent distress Eyes: normal inspection, PERRL ENT: hearing grossly normal Neck: supple Respiratory/Chest: lungs clear, no respiratory distress, no accessory muscle use Cardiovascular: regular rate, rhythm Abdomen / GI: normal bowel sounds, non tender, soft Extremities: no calf tenderness, no pedal edema Neurologic/Psychiatric: alert, normal mood/affect, oriented x 3 Skin: normal color, warm/dry, no rash Hospital Course 61 y/o transgender female with a history of HTN, HLD, sick sinus syndrome s/p pacemaker 04/26/17, DM II, CKD stage III, anemia of chronic disease, and HIV who presented to the ED on 08/16 from [facility] with abdominal pain, nausea and vomiting. Pt afebrile, VSS on arrival. O2 sat did drop to 85%, placed on 2L NC. CXR with possible left base consolidation vs atelectasis. CT abdomen/ pelvis with distal small bowel obstructive change and inflammatory change of the appendix with associated appendicolith. Creatinine 2.50, elevated above baseline. POC lactic acid 2.15. LFTs elevated. s/p ex-lap on 08/[address] Elizabeth for SBO, finding ruptured appendicitis with abscess formation: - NG tube placed on 08/19- removed on 08/22 and diet advanced to clears- did not tolerated and NG replaced on 08/23- placed PICC line and started TPN on 08/24- stopped on 08/31 -- Removed NG tube 08/27, SLOWLY advancing diet- advance to low residue on , tolerating well - Treated w/ IVF @ 100 ml/hr while NPO- ECHO from 04/2017 w/ preserved EF - Morphine 4 mg IV q4h, IV Dilaudid PRN for pain management- requiring no PRN medications - Abdominal cultures growing Pseudomonas/anaerobic gram + bacilli- sensitives reviewed- IV Cipro + Flagyl- completed x10 days- ID following - General surgery consulted, appreciate recommendations- surgical management as per surgery -- f/u in 2 weeks -- Remove remaining bryson in 1 week (09/08) - GI consulted, appreciate recommendations Acute respiratory and metabolic acidosis secondary to LEEROY- RESOLVED: - ICU due to postop anesthesia complications/renal failure- STABLE- transferred to tele on 08/21 and med/surg on 08/22 - DuoNebs QID and PRN - CXR on 08/23- PNA vs atelectasis -- Likely atelectasis due to no cough/sputum production, fever/chills, or WBC - however, IV Cipro coverage as above -- Encourage incentive spirometer, ambulation, OOB in chair QS - Nephrology following LEEROY on CKD stage II, likely secondary to ATN- baseline silo filler 2.0-2.5- silo filler 2.49 today- RESOLVED, anemia of chronic disease- baseline hgb 10: - Avoid nephrotoxic agents and renally dose medications as appropriate - Follow PRP and UO - Nephrology consulted, appreciate recommendations- no need for acute HD at this time, received IV Venofer x1 dose - H&H- 8.0 today- continue to follow and transfuse PRN hgb < 7.0 or symptomatic - transfused 1 unit PRBCs on 09/01 - Continue iron supplement at discharge HTN, HLD, sick sinus syndrome s/p pacemaker 04/26/17: - Continue Coreg 18.75 mg PO BID, Norvasc 10 mg daily, Lipitor 40 mg daily, Bumex 0.5 mg daily - IV Hydralazine PRN T2DM- last HgbA1c 5.0%: - Hold Glipizide while inpatient- resume at discharge - Hyperglycemia- Lantus 4 u daily and adjust PRN - BSG ACHS and ISS HIV: Continue Genvoya 1 tab PO qd and Prezista 800 mg PO HS BPH: Continue Proscar 5 mg PO qd Glaucoma: Continue Latanoprost drops GI prophylaxis: IV Pepcid DVT prophylaxis: Heparin SQ BID held due to worsening anemia; encouraged ambulation Code Status: LEVEL I, FULL Dispo: Discharge to [facility] I personally interviewed and examined the patient. I agree with history of present illness and physical exam mentioned above, I also performed my own history taking and examination. Past medical history and review of system has been obtained by myself I reviewed all pertinent labs and studies Reviewed current medications I discussed and formulated of the assessment and plan mentioned above with Miss Buckley Please refer to the Summary mentioned below. 61 year old man transgender to female with history of hypertension, dyslipidemia , sick sinus syndrome status post pacemaker, chronic kidney disease stage III, chronic anemia secondary to chronic disease, HIV on HAART presented to the hospital with abdominal pain nausea and vomiting secondary to ruptured appendix status post exploratory laparoscopy and appendectomy. Currently significantly improved tolerated well. Abdominal cultures grew Pseudomonas/anaerobic gram + bacilli-, completed course of Cipro/Flagyl discontinued TPN Patient also had acute kidney injury on admission, improved Yesterday restarted HAAART medications, patient does not want the guards to know that she is on HAART. given estrogen patch as per her request, she understands that estrogen increased risk of blood clots, Patient is stable today for discharge General Appearance: not in acute distress Eyes: normal Sclerae, extraocular muscle intact ENT: hearing grossly normal Neck: supple Respiratory/Chest: normal air entry bilateral ,no respiratory distress, no accessory muscle use Cardiovascular: regular rate, rhythm, no murmur Abdomen: non tender, soft, no masses Extremities: no edema Neurologic/Psychiatric: Awake alert oriented times place and person moves all extremities sensation intact cranial nerves II-12 appear to be intact Skin: normal color, warm/dry, no rash Heri Duke MD, [facility] hospitalist group Total Time Spent: Greater than 30 minutes This includes examination of the patient, discharge planning, medication reconciliation, and communication with other providers. Discharge Instructions Please refer to the electronic Patient Visit Report (Discharge Instructions) for additional information. Follow-Up Please follow-up with [facility] provider within 24-48 hours Please follow-up with GI within 2 weeks Please follow-up/keep all of your subspecialty appointments
[2017-09-02] MEDS: IRON SUCROSE INJ 200 MG in SODIUM CHLORIDE 0.9% 100ML 100 ML IV SCH (13:54)
[2017-09-02 15:00] VITALS: BP 144/73; PULSE 73; TEMP 37.2; O2SAT 97
== END 2017-09-02 17:00 | disposition home or self-care (01) | DRG 338 ==
LOC: EDBD 08:59 → C.EDB 09:01 → C.MSN 13:58 → ENRESERV 14:18 → CANRESERV 08-20 14:19 → CANBEDREQ 08-20 14:59 → ENRESERV 08-20 15:17 → C.MSICU 08-20 16:05 → EDBEDREQ 08-21 17:17 → ENRESERV 08-21 17:18 → C.2T 08-21 18:09 → ENRESERV 08-22 11:33 → C.MSN 08-22 14:34
PROVIDERS: ADMIT Internal Medicine; ATTEND Internal Medicine
PROC: 0DTJ0ZZ Resection of Appendix, Open Approach (ICD-10-PCS; principal; 2017-08-20 09:15)
PROC: 02HV33Z Insertion of Infusion Device into Superior Vena Cava, Percutaneous Approach (ICD-10-PCS; 2017-08-24)
DX: K35.2 Acute appendicitis with generalized peritonitis (principal); B20 Human immunodeficiency virus [HIV] disease; N17.0 Acute kidney failure with tubular necrosis; K56.600 Partial intestinal obstruction, unspecified as to cause; E87.4 Mixed disorder of acid-base balance; E87.0 Hyperosmolality and hypernatremia; I12.9 Hypertensive chronic kidney disease with stage 1 through stage 4 chronic kidney disease, or unspecified chronic kidney disease; N18.3 Chronic kidney disease, stage 3 (moderate); E11.22 Type 2 diabetes mellitus with diabetic chronic kidney disease; I48.0 Paroxysmal atrial fibrillation; D63.8 Anemia in other chronic diseases classified elsewhere; E78.5 Hyperlipidemia, unspecified; I49.5 Sick sinus syndrome; H40.9 Unspecified glaucoma; N40.0 Benign prostatic hyperplasia without lower urinary tract symptoms; Z79.899 Other long term (current) drug therapy; Z86.73 Personal history of transient ischemic attack (TIA), and cerebral infarction without residual deficits; Z87.890 Personal history of sex reassignment; Z88.0 Allergy status to penicillin; Z95.0 Presence of cardiac pacemaker

== ENCOUNTER 2018-02-28 11:06 | Inpatient (IN) | payer OTHER ==
[~2018-02-28] VITALS: Ht 162.6 cm; Wt 63.4 kg
[~2018-02-28 11:06] MED LIST changes: -ACET-1047 PO; -ASPEC81 PO; -BUME1TAB PO; +BUME1TAB42 PO; +GLIP10TA3 PO; -INSDGIPEN SC; -INSHRIE SQ; -POTA10CA28 PO
[2018-02-28] MEDS ORDERED: GLIP10TA10 PO (12:04)
[2018-02-28] MEDS ORDERED: LATA0.5S OPB (12:04)
[2018-02-28] MEDS ORDERED: CARV25TA2 PO (12:04)
[2018-02-28] MEDS ORDERED: CRS/10 PO (12:04)
[2018-02-28] MEDS ORDERED: CLMTP1 TOP (12:04)
[2018-02-28] MEDS ORDERED: MULT-477 PO (12:04)
[2018-02-28] MEDS ORDERED: FINA5TAB PO (12:04)
[2018-02-28] MEDS ORDERED: CARV12.52 PO (12:04)
[2018-02-28] MEDS ORDERED: BUME1TAB42 PO (12:04)
[2018-02-28] MEDS ORDERED: DARU1TAB5 PO (12:04)
[2018-02-28] MEDS ORDERED: FRRS300 PO (12:04)
[2018-02-28] MEDS ORDERED: DEXT4CHW60 PO (12:04)
[2018-02-28] MEDS ORDERED: ELVI1TAB6 PO (12:04)
[2018-02-28 12:46] LABS: BASO % 0.4 %; BASO ABS # 0.02 K/uL (0-0.2); EOS % 1.6 %; EOS ABS # 0.09 K/uL (0-0.5); HEMOGLOBIN 11.5 g/dL (14.0-18.0); IG# 0.01 K/uL (0.00-0.02); LYMPH % 25.2 %; LYMPH ABS # 1.43 K/uL (1.2-3.4); MEAN CELL VOLUME 94.7 fL (80-100); MEAN CORPUSCULAR HGB CONC 33.8 g/dl (32-36); MEAN PLATELET VOLUME 10.9 fL (7.4-10.4); MONO % 5.8 %; MONO ABS # 0.33 K/uL (0.11-0.59); NEUT % 66.8 %; PLATELET COUNT 214 K/uL (130-400); RED CELL DISTRIBUTION WIDTH CV 12.2 % (11.5-14.5); RED CELL DISTRIBUTION WIDTH SD 41.7 fL (36.4-46.3); WHITE BLOOD COUNT 5.68 K/uL (4.8-10.8)
--- NOTE | 2018-02-28 12:55 | DIAGNOSTIC IMAGING REPORT ---
CT HEAD WITHOUT CONTRAST (CT) CLINICAL HISTORY: fall, left sided head pain HYPERTENSION COMPARISON STUDY: April 16, 2017 TECHNIQUE: Axial CT of the brain is performed from the vertex to the skull base. IV contrast was not administered for this examination. A dose lowering technique was utilized adhering to the principles of ALARA. CT DOSE: 638.56 mGycm FINDINGS: No intra or extra-axial mass lesions are visualized. There is no CT evidence of acute cortical infarction. There is no evidence of midline shift. There is no acute hemorrhage. No calvarial fractures are visualized. There are moderate white matter hypodensities likely on a small vessel basis. There is an old right thalamic lacunar infarct. There is mild ventricular prominence, likely secondary to volume loss. There is no evidence of acute sinusitis IMPRESSION: No acute intracranial findings Electronically signed by: Barron Alonso M.D. 02/28/2018 12:53 PM Dictated Date/Time: 02/28/2018 12:52 PM
[2018-02-28 13:09] LABS: CALCIUM 8.8 mg/dl (8.5-10.1); CREATININE 3.24 mg/dl (0.60-1.40); POTASSIUM 4.9 mmol/L (3.5-5.1)
[2018-02-28] MEDS ORDERED: METOPROLOL TARTRATE 1 MG/ML VIAL IV STA (13:19)
[2018-02-28] MEDS ORDERED: HydrALAZINE HCL 20 MG/ML VIAL IV. STA (14:42)
[2018-02-28] MEDS ORDERED: DEXTROSE 50% 50 ML SYR IV PRN (15:00)
[2018-02-28] MEDS ORDERED: ONDANSETRON INJ 2 MG/ML 2 ML VIAL IV PRN (15:00)
[2018-02-28] MEDS ORDERED: MAGNESIUM HYDROXIDE SUSP 30 ML UDC PO PRN (15:00)
[2018-02-28] MEDS ORDERED: GLUCOSE 10 TABS/TUBE PO PRN (15:00)
[2018-02-28] MEDS ORDERED: GLUCOSE 40% GEL 15 GM TUBE PO PRN (15:00)
[2018-02-28] MEDS ORDERED: DEXTROSE PO PRN (15:00)
[2018-02-28] MEDS ORDERED: NITROGLYCERIN 0.4 MG SL PER TAB CHARGE SL PRN (15:00)
[2018-02-28] MEDS ORDERED: [UNRECOGNIZED DRUG - OTHER] PO PRN (15:00)
[2018-02-28] MEDS ORDERED: GLUCAGON FOR INJ 1 MG VIAL SQ PRN (15:00)
[2018-02-28] MEDS ORDERED: CARBOHYDRATES FOR HYPOGLYCEMIA PO PRN (15:00)
--- NOTE | 2018-02-28 15:21 | History and Physical ---
History & Physical Date & Time of Service: Feb 28, 2018 at 15:00 Chief Complaint: Hypertension Primary Care Physician: Mike SIMMONS History of Present Illness Source: patient 62 y/o M to F transgender who was sent to the ED from [facility] for elevated BP. Pt states that she fell in her cell on 02/20. She states she was standing on one foot and became lightheaded. She hit her head on the L behind her ear. She has not fallen again. She has had a headache on and off since that time. She does not generally get headaches. Pt states her BP is checked M/W/ and that it was at its usual all last week, which is 140s-150s systolic. She states that she went to get her meds this AM and have her BP checked and it was found to be over 200 systolic at that time. She does state that she was given her meds at that time. She cannot tell me what medications she takes regularly , but states that there has been no change in her meds and that she has been given them regularly. She did not have any GI issues over the weekend that prevented her from getting her meds. Pt states she has a bit of a headache at present, but it is better. Pt denies fever, SOB, chest pain, abd pain, n/v/c/d, LE pain or swelling. 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 HTN Social History Smoking Status: Never Smoker Alcohol Use: none Drug Use: none Marital Status: single Housing status: other Occupational Status: unemployed Allergies Coded Allergies: Penicillins (Verified Allergy, Intermediate, UNKNOWN, 02/28/18) Home Medications Scheduled Bumetanide (Bumex), 2 TABS PO DAILY Carvedilol (Coreg), 12.5 MG PO BID Carvedilol (Coreg), 25 MG PO BID Darunavir Ethanolate (Prezista), 800 MG PO QAM Hxwrgbezkfqg-Tqkplpbtck-Yostyp (Genvoya [phone] mg), 1 TAB PO DAILY Estradiol (Estradiol), 1 PATCH TOP WK Ferrous Sulfate (Ferrous Sulfate), 325 MG PO BID Finasteride (Proscar), 5 MG PO DAILY Glipizide (Glipizide), 10 MG PO BID Latanoprost (Xalatan 0.005% Oph Lyly), 1 DROPS OPB HS Multiple Vitamin (Thera), 1 TAB PO DAILY Rosuvastatin Calcium (Crestor), 10 MG PO DAILY Scheduled PRN Dextrose (Diabetic Use) (Glucose), 1 TAB PO QID PRN for HYPOGLYCEMIA Review of Systems Pertinent positives and negatives reviewed in HPI--all others negative Physical Exam Vital Signs Date Time Temp Pulse Resp B/P (MAP) Pulse Ox O2 Delivery O2 Flow Rate FiO2 02/28/18 14:11 60 16 99 02/28/18 14:02 210/97 02/28/18 13:41 60 16 100 02/28/18 13:31 212/104 02/28/18 13:28 61 216/104 02/28/18 13:11 60 19 99 02/28/18 13:01 216/104 02/28/18 13:00 61 18 221/105 98 Room Air 02/28/18 12:59 221/105 02/28/18 12:36 60 17 02/28/18 12:31 215/107 02/28/18 12:06 60 15 02/28/18 12:04 61 02/28/18 12:01 222/108 02/28/18 11:36 61 14 99 02/28/18 11:32 222/105 02/28/18 11:22 99 Room Air 02/28/18 11:20 140/103 02/28/18 11:08 36.7 74 18 216/107 98 Room Air General Appearance: WD/WN, no apparent distress Head: normocephalic, atraumatic Eyes: normal inspection, sclerae normal Respiratory/Chest: normal breath sounds, no respiratory distress Cardiovascular: regular rate, rhythm, no edema Abdomen/GI: non tender, soft Extremities/Musculoskelatal: no calf tenderness, no pedal edema Neurologic/Psych: alert, normal mood/affect, oriented x 3 Skin: normal color, warm/dry Diagnostics Laboratory Results Results Past 24 Hours Test 02/28/18 12:25 Range/Units White Blood Count 5.68 4.8-10.8 K/uL Red Blood Count 3.59 4.7-6.1 M/uL Hemoglobin 11.5 14.0-18.0 g/dL Hematocrit 34.0 42-52 % Mean Corpuscular Volume 94.7 80-100 fL Mean Corpuscular Hemoglobin 32.0 25-34 pg Mean Corpuscular Hemoglobin Concent 33.8 32-36 g/dl Platelet Count 214 130-400 K/uL Mean Platelet Volume 10.9 7.4-10.4 fL Neutrophils (%) (Auto) 66.8 % Lymphocytes (%) (Auto) 25.2 % Monocytes (%) (Auto) 5.8 % Eosinophils (%) (Auto) 1.6 % Basophils (%) (Auto) 0.4 % Neutrophils # (Auto) 3.80 1.4-6.5 K/uL Lymphocytes # (Auto) 1.43 1.2-3.4 K/uL Monocytes # (Auto) 0.33 0.11-0.59 K/uL Eosinophils # (Auto) 0.09 0-0.5 K/uL Basophils # (Auto) 0.02 0-0.2 K/uL RDW Standard Deviation 41.7 36.4-46.3 fL RDW Coefficient of Variation 12.2 11.5-14.5 % Immature Granulocyte % (Auto) 0.2 % Immature Granulocyte # (Auto) 0.01 0.00-0.02 K/uL Sodium Level 141 136-145 mmol/L Potassium Level 4.9 3.5-5.1 mmol/L Chloride Level 112 98-107 mmol/L Carbon Dioxide Level 25 21-32 mmol/L Anion Gap 4.0 3-11 mmol/L Blood Urea Nitrogen 40 7-18 mg/dl Creatinine 3.24 0.60-1.40 mg/dl Est Creatinine Clear Calc Drug Dose 16.9 ml/min Estimated GFR () 22.2 Estimated GFR (Non- 19.1 BUN/Creatinine Ratio 12.2 10-20 Random Glucose 83 70-99 mg/dl Calcium Level 8.8 8.5-10.1 mg/dl Troponin I 0.033 0-0.045 ng/ml Diagnostic Radiology CT head neg for acute EKG paced, RBBB Impression Assessment and Plan 62 y/o M to F transgender who was admitted on 02/28 with HTN emergency and ARF. HTN emergency: uncertain etiology No improvement s/p metoprolol 5mg IV and hydralazine 10mg Elevated cr noted, renal US pending Denies changes in meds or missed meds CT head neg EKG RBBB, paced Trop neg x1 ARF: uncertain etiology Holding glipizide and statin Monitor on IVF Baseline cr is 2.5 SSS: s/p pacer, stable DM: holding glipizide SSI PRN HIV: meds as prior Transgender status: estrogen as prior Other: Full code DM AHA diet Heparin for DVT proph Resuscitation Status VTE Prophylaxis Will order VTE Prophylaxis: Yes
[2018-02-28] MEDS: INSULIN ASPART 100 UNITS/ML 3 ML PEN SC SCH ×3 (16:00→20:52)
[2018-02-28 16:19] LABS: PTT PATIENT 25.7 SECONDS (21.0-31.0)
--- NOTE | 2018-02-28 17:05 | EMERGENCY ROOM VISIT NOTE ---
History First contact with patient: 11:13 Chief Complaint: HYPERTENSION Stated Complaint: HYPERTENSIVE EMERGENCY History of Present Illness The patient is a 62 year old male who presents to the Emergency Room via private vehicle with complaints of "hypertension". The patient presents to us today from [facility] where he is currently incarcerated. The patient states that 8 days ago he fell striking the left side of his head. He has had a headache since that time. He also notes a history of high blood pressure. He states that currently his head pain is a 5/10 on the left side. He notes no loss of consciousness. He denies currently any chest pain or shortness of breath. No fevers or chills. Review of Systems A complete 10-point Review of Systems was discussed with the patient, with pertinent positives and negatives listed in the History of Present Illness. All remaining Review of Systems questions can be considered negative unless otherwise specified. Past Medical/Surgical History Medical Problems: (1) Abdominal pain (2) Acute kidney injury (3) Anemia (4) Cardiac arrest (5) CKD (chronic kidney disease), stage III (6) CVA (cerebral vascular accident) (7) DM type 2 (diabetes mellitus, type 2) (8) G-6-PD deficiency (9) HIV (human immunodeficiency virus infection) (10) HTN (hypertension) (11) Hypertensive emergency (12) Loyn-fq-gtfpbp transgender person (13) Proteinuria (14) Ruptured appendicitis Family History Diabetes mellitus Hypertension Social History Smoking Status: Never Smoker Drug Use: none Marital Status: single Housing Status: other Occupation Status: unemployed Current/Historical Medications Scheduled Bumetanide (Bumex), 2 TABS PO DAILY Carvedilol (Coreg), 12.5 MG PO BID Carvedilol (Coreg), 25 MG PO BID Darunavir Ethanolate (Prezista), 800 MG PO QAM Mdphctwxvjie-Eygebpvkcz-Suyisd (Genvoya [phone] mg), 1 TAB PO DAILY Estradiol (Estradiol), 1 PATCH TOP WK Ferrous Sulfate (Ferrous Sulfate), 325 MG PO BID Finasteride (Proscar), 5 MG PO DAILY Glipizide (Glipizide), 10 MG PO BID Latanoprost (Xalatan 0.005% Oph Lyly), 1 DROPS OPB HS Multiple Vitamin (Thera), 1 TAB PO DAILY Rosuvastatin Calcium (Crestor), 10 MG PO DAILY Scheduled PRN Dextrose (Diabetic Use) (Glucose), 1 TAB PO QID PRN for HYPOGLYCEMIA Physical Exam Vital Signs Date Time Temp Pulse Resp B/P (MAP) Pulse Ox O2 Delivery O2 Flow Rate FiO2 02/28/18 14:46 65 16 100 02/28/18 14:46 65 16 100 02/28/18 14:31 222/107 02/28/18 14:31 222/107 02/28/18 14:16 61 15 99 02/28/18 14:16 61 15 99 02/28/18 14:11 60 16 99 02/28/18 14:02 210/97 02/28/18 13:41 60 16 100 02/28/18 13:31 212/104 02/28/18 13:28 61 216/104 02/28/18 13:11 60 19 99 02/28/18 13:01 216/104 02/28/18 13:00 61 18 221/105 98 Room Air 02/28/18 12:59 221/105 02/28/18 12:36 60 17 02/28/18 12:31 215/107 02/28/18 12:06 60 15 02/28/18 12:04 61 02/28/18 12:01 222/108 02/28/18 11:36 61 14 99 02/28/18 11:32 222/105 02/28/18 11:22 99 Room Air 02/28/18 11:20 140/103 02/28/18 11:08 36.7 74 18 216/107 98 Room Air Physical Exam VITAL SIGNS - Vital signs and nursing notes were reviewed. Hypertensive. GENERAL -62-year-old male appearing his stated age who is in no acute distress. Communicates well with provider and answers questions appropriately. SKIN - Without rashes. No meningeal or petechial rash. HEAD - NC/AT. EYES - PERRL with EOMI bilaterally. Sclera anicteric. EARS - No deformities of external structures noted on gross examination bilaterally. NOSE - Midline and without cyanosis. No epistaxis or purulent drainage noted. MOUTH/OROPHARYNX - Without perioral cyanosis. NECK - Neck with FROM. No nuchal rigidity. LUNGS - Chest wall symmetric without accessory muscle use, intercostals retractions, or central cyanosis. Normal vesicular breath sounds CTA B/L. No wheezes, rales, or rhonchi appreciated. CARDIAC - RRR with S1/S2. No murmur, rubs, or gallops appreciated. EXTREMITIES - No clubbing or peripheral cyanosis. No pretibial edema present. + 5/5 strength noted in UE/LE bilaterally. NEUROLOGIC - Cranial nerves II through XII grossly intact. Sensory intact to light touch throughout. Patellar reflexes +2/4. PSYCH - A&O, and cooperates fully with examiner. Pt is very pleasant and interacts well with examiner. Medical Decision & Procedures ER Provider Diagnostic Interpretation: CT HEAD WITHOUT CONTRAST (CT) CLINICAL HISTORY: fall, left sided head pain HYPERTENSION COMPARISON STUDY: April 16, 2017 TECHNIQUE: Axial CT of the brain is performed from the vertex to the skull base. IV contrast was not administered for this examination. A dose lowering technique was utilized adhering to the principles of ALARA. CT DOSE: 638.56 mGycm FINDINGS: No intra or extra-axial mass lesions are visualized. There is no CT evidence of acute cortical infarction. There is no evidence of midline shift. There is no acute hemorrhage. No calvarial fractures are visualized. There are moderate white matter hypodensities likely on a small vessel basis. There is an old right thalamic lacunar infarct. There is mild ventricular prominence, likely secondary to volume loss. There is no evidence of acute sinusitis IMPRESSION: No acute intracranial findings Electronically signed by: Barron Alonso M.D. 02/28/2018 12:53 PM Dictated Date/Time: 02/28/2018 12:52 PM Laboratory Results 02/28/18 12:25 Red Blood Count 3.59, Mean Corpuscular Volume 94.7, Mean Corpuscular Hemoglobin 32.0, Mean Corpuscular Hemoglobin Concent 33.8, Mean Platelet Volume 10.9, Neutrophils (%) (Auto) 66.8, Lymphocytes (%) (Auto) 25.2, Monocytes (%) (Auto) 5.8, Eosinophils (%) (Auto) 1.6, Basophils (%) (Auto) 0.4, Neutrophils # (Auto) 3.80, Lymphocytes # (Auto) 1.43, Monocytes # (Auto) 0.33, Eosinophils # (Auto) 0.09, Basophils # (Auto) 0.02 02/28/18 12:25 Test 02/28/18 12:25 White Blood Count 5.68 K/uL (4.8-10.8) Red Blood Count 3.59 M/uL (4.7-6.1) Hemoglobin 11.5 g/dL (14.0-18.0) Hematocrit 34.0 % (42-52) Mean Corpuscular Volume 94.7 fL (80-100) Mean Corpuscular Hemoglobin 32.0 pg (25-34) Mean Corpuscular Hemoglobin Concent 33.8 g/dl (32-36) Platelet Count 214 K/uL (130-400) Mean Platelet Volume 10.9 fL (7.4-10.4) Neutrophils (%) (Auto) 66.8 % Lymphocytes (%) (Auto) 25.2 % Monocytes (%) (Auto) 5.8 % Eosinophils (%) (Auto) 1.6 % Basophils (%) (Auto) 0.4 % Neutrophils # (Auto) 3.80 K/uL (1.4-6.5) Lymphocytes # (Auto) 1.43 K/uL (1.2-3.4) Monocytes # (Auto) 0.33 K/uL (0.11-0.59) Eosinophils # (Auto) 0.09 K/uL (0-0.5) Basophils # (Auto) 0.02 K/uL (0-0.2) RDW Standard Deviation 41.7 fL (36.4-46.3) RDW Coefficient of Variation 12.2 % (11.5-14.5) Immature Granulocyte % (Auto) 0.2 % Immature Granulocyte # (Auto) 0.01 K/uL (0.00-0.02) Prothrombin Time 10.5 SECONDS (9.0-12.0) Prothromb Time International Ratio 1.0 (0.9-1.1) Activated Partial Thromboplast Time 25.7 SECONDS (21.0-31.0) Partial Thromboplastin Ratio 1.0 Anion Gap 4.0 mmol/L (3-11) Est Creatinine Clear Calc Drug Dose 16.9 ml/min Estimated GFR () 22.2 Estimated GFR (Non- 19.1 BUN/Creatinine Ratio 12.2 (10-20) Calcium Level 8.8 mg/dl (8.5-10.1) Troponin I 0.033 ng/ml (0-0.045) Medications Administered Medications (Trade) Dose Ordered Sig/Carlin Route Start Time Stop Time Status Last Admin Dose Admin Metoprolol Tartrate (Lopressor Iv) 5 mg NOW STAT IV 02/28/18 13:19 02/28/18 13:21 DC 02/28/18 13:28 5 MG Hydralazine HCl (HydrALAZINE INJ) 10 mg NOW STAT IV. 02/28/18 14:42 02/28/18 14:44 DC 02/28/18 14:54 10 MG Medical Decision Patient was seen and evaluated as above in room C5. Review was performed of nursing notes and vital signs. After obtaining a thorough history and physical examination the above work up was performed. Presents to us today with elevated blood pressure as well as head pain status post fall. He is nontoxic on exam but does present with a blood pressure 216/107. IV access was established, and the above workup was performed. CBC reveals no concerning leukocytosis. Hemoglobin 11.5. Coags normal. Metabolic panel does reveal elevation of BUN and creatinine at 40, and 3.24 respectively. This is elevated from baseline. Patient CT of the head with results as above. No acute process. He was persistently elevated here in regard to blood pressure. With the persistent elevation, the creatinine elevation, and the headaches which could be from the fall but also could be from the blood pressure believe that further evaluation in the inpatient setting is warranted. Particularly because , he was given 5 mg of IV Lopressor with only increase of his blood pressure, and then 10 mg of IV hydralazine. Case discussed with the attending physician. Please refer to for the documentation regarding his stay as the case was discussed with Dr. Viji Saldaña [facility] hospitalist. EKG reveals an atrial paced rhythm, rate of 61 bpm. In the evaluation and treatment of this patient, the following differential diagnoses were considered: Concussion, Contrecoup Injury, Brain Tumor, Depression, Encephalitis, Hypothyroidism, Meningitis, CVA, TIA, Migraine, Cluster Headache, Intracranial Abnormality, Intracranial Hemorrhage, Subdural Hematoma, Subarachnoid Hemorrhage, Hydrocephalus. Impression Primary Impression: Hypertensive emergency Additional Impression: Anemia Departure Information Dispostion Home / Self-Care Condition GOOD Referrals Mike SIMMONS (PCP) Forms WORK / SCHOOL INSTRUCTIONS, HOME CARE DOCUMENTATION FORM, IMPORTANT VISIT INFORMATION Patient Instructions [facility] Health Problem Qualifiers
--- NOTE | 2018-02-28 17:17 | DIAGNOSTIC IMAGING REPORT ---
DUPLEX RENAL ARTERY CLINICAL HISTORY: elevated BP and ARF renal insufficiency. Hypertension. TECHNIQUE: Renal arterial Doppler COMPARISON STUDY: None FINDINGS: Normal velocity characteristics of the renal arteries bilaterally. Resistive indices are within normal limits. Renal venous structures are patent. IMPRESSION: Normal study. No evidence for renal arterial stenosis. The above report was generated using voice recognition software. It may contain grammatical, syntax or spelling errors. Electronically signed by: Davion Lopez M.D. 02/28/2018 5:16 PM Dictated Date/Time: 02/28/2018 5:15 PM
--- NOTE | 2018-02-28 17:19 | DIAGNOSTIC IMAGING REPORT ---
(CHELSEA/BLAD)RETROPERITON COMP HISTORY: Hypertension elevated BP and ARF COMPARISON: None. FINDINGS: Right kidney: Maximum dimension 10.0 cm. No evidence for hydronephrosis. Normal corticomedullary differentiation and cortical thickness. Left kidney: Maximum dimension 9.5 cm. No evidence for hydronephrosis. Normal corticomedullary differentiation and cortical thickness. Bladder: No bladder wall thickening. The bilateral ureteral jets were identified. IMPRESSION: Normal kidneys. Normal bladder. The above report was generated using voice recognition software. It may contain grammatical, syntax or spelling errors. Electronically signed by: Davion Lopez M.D. 02/28/2018 5:17 PM Dictated Date/Time: 02/28/2018 5:17 PM
[2018-02-28] MEDS: METOPROLOL TARTRATE 1 MG/ML VIAL IV PRN (17:59)
[2018-02-28 18:13] VITALS: BP 209/94; PULSE 61; TEMP 36.8; O2SAT 98; Ht 162.6 cm; Wt 63.4 kg
[2018-02-28 18:30] VITALS: BP 195/87
[2018-02-28 19:15] VITALS: BP 199/90; PULSE 60; TEMP 36.8; O2SAT 99
[2018-02-28] MEDS ORDERED: NURSING VERBAL MED ORDER ONE (19:15)
[2018-02-28] MEDS ORDERED: METOPROLOL TARTRATE 1 MG/ML VIAL IV ONE (19:30)
[2018-02-28] MEDS: SODIUM CHLORIDE 0.9% 1000ML 1,000 ML IV SCH (19:44)
[2018-02-28 20:00] VITALS: O2SAT 99
[2018-02-28 20:43] VITALS: BP 206/97; PULSE 60
[2018-02-28] MEDS: FERROUS SULFATE 325 MG TAB PO SCH (20:53)
[2018-02-28] MEDS: LATANOPROST 0.005% OP SOLN 2.5 ML BTL OPB SCH (20:53)
[2018-02-28] MEDS: CARVEDILOL 12.5 MG TAB PO SCH (20:54)
[2018-02-28] MEDS: CARVEDILOL 25 MG TAB PO SCH (20:54)
[2018-02-28] MEDS: HEPARIN SOD 5000 UNIT/0.5 ML CARP SQ SCH (21:01)
[2018-02-28] MEDS: ACETAMINOPHEN 325 MG TAB PO PRN (21:04)
[2018-02-28 22:33] VITALS: BP 187/78; PULSE 60
[2018-03-01] VITALS (9 sets, daily range): BP systolic 158–220; BP diastolic 72–102; PULSE 60–64; TEMP 36.5–36.8; O2SAT 96–98
[2018-03-01] MEDS: METOPROLOL TARTRATE 1 MG/ML VIAL IV PRN ×2 (00:11→04:04)
[2018-03-01] MEDS: SODIUM CHLORIDE 0.9% 1000ML 1,000 ML IV SCH (04:04)
[2018-03-01] MEDS ORDERED: HydrALAZINE HCL 20 MG/ML VIAL IV. STA (05:46)
[2018-03-01] MEDS ORDERED: HydrALAZINE HCL 20 MG/ML VIAL ONE (05:52)
[2018-03-01] MEDS: HEPARIN SOD 5000 UNIT/0.5 ML CARP SQ SCH ×3 (06:00→21:31)
[2018-03-01 07:08] LABS: HEMOGLOBIN A1C 5.1 % (4.5-5.6)
[2018-03-01] MEDS: CARVEDILOL 25 MG TAB PO SCH ×2 (07:55→21:04)
[2018-03-01] MEDS: FERROUS SULFATE 325 MG TAB PO SCH ×2 (07:55→21:05)
[2018-03-01] MEDS: MULTIVITAMIN TAB PO SCH (07:55)
[2018-03-01] MEDS: FINASTERIDE 5 MG TAB PO SCH (07:56)
[2018-03-01] MEDS: CARVEDILOL 12.5 MG TAB PO SCH ×2 (07:56→21:04)
[2018-03-01] MEDS: INSULIN ASPART 100 UNITS/ML 3 ML PEN SC SCH ×4 (08:03→21:00)
[2018-03-01] MEDS ORDERED: BUMETANIDE 1 MG TAB PO SCH (09:00)
[2018-03-01] MEDS ORDERED: ROSUVASTATIN CALCIUM 10 MG TAB PO SCH (09:00)
[2018-03-01 10:44] LABS: CALCIUM 7.8 mg/dl (8.5-10.1); CREATININE 3.22 mg/dl (0.60-1.40); POTASSIUM 4.8 mmol/L (3.5-5.1)
[2018-03-01] MEDS: AMLODIPINE BESYLATE 5 MG TAB PO SCH (11:54)
[2018-03-01] MEDS: ACETAMINOPHEN 325 MG TAB PO PRN (15:42)
[2018-03-01] MEDS ORDERED: SPIRONOLACTONE 25 MG TAB PO ONE (15:57)
--- NOTE | 2018-03-01 16:08 | Nephrology Consultation ---
Nephrology Consultation Date & Providers Date of Consultation: Mar 01, 2018. Primary Care Provider: Mike SIMMONS Referring Provider: Reason for Consultation Acute on chronic kidney injury, hypertensive urgency History of Present Illness Ms. Dash is a 62 year old transgender female who is seen at the request of Dr. Drew for evaluation of acute on CKD and hypertensive urgency. Medical records in the EMR were reviewed today and are summarized as follows: Ms. Dash is HIV + on chronic antiretroviral therapy. Her medical history is also significant for HTN, hyperlipidemia, SSS s/p pacemaker 04/25, T2DM, BPH and glaucoma. She has stage III CKD. Prior to her incarceration in 2013 Ms. Dash was evaluated by a trouble locator test desk in [place], [place]. She was told that her kidney function was "not normal" and that she had protein in her urine. A biopsy was not performed. It was stressed that she continue her antiretroviral therapy for HIV and her blood pressure medications were adjusted. Ms. Dash was last hospitalized at [facility] 08/26. At that time she presented w/ abdominal pain and LEEROY. Creatinine was ~ 3.5. She required exploratory laparotomy and was found to have a perforated appendix with several intraabdominal abscesses. Following surgical repair and antibiotic therapy serum creatinine returned to baseline function of 2.0 - 2.5. Ms. Dash was discharged back to [facility] on a bp regimen of Amlodipine 10 mg qD, Bumex 0.5 mg qD and Carvedilol 12.5 mg 1.5 tablets BID x 30 days only. It is unclear whether the Carvedilol was continued after 09/26. Patient reports adherence with her prescribed medical regimen. One week ago she suffered a mechanical fall while getting dressed and hit her head. She has had intermittent headaches since that time. She was seen in the [facility] today and asked to have her bp checked. SBP was ~ 200 mmHG. Ms. Dash was then transferred to [facility] for evaluation. In the ED hypertensive urgency was confirmed. Serum creatinine was again noted to be 3.5. Patient was admitted to the ICU for IV antihypertensive therapy and evaluation of acute on CKD. Past Medical/Surgical History Medical: # Stage III CKD w/ baseline creatinine 2.0 - 2.5 # Proteinuria # AODM # HIV+ on chronic antiretroviral therapy # HTN # Hyperlipidemia # SSS s/p pacemaker 04/25 # BPH # Glaucoma Surgical: # Exploratory laparotomy 08/26 - ruptured appendix w/ abdominal abscesses Allergies Coded Allergies: Penicillins (Verified Allergy, Intermediate, UNKNOWN, 02/28/18) Inpatient Medications Current Inpatient Medications Medications (Trade) Dose Ordered Sig/Carlin Route Start Time Stop Time Status Last Admin Dose Admin Heparin Sodium (Porcine) (Heparin Sq 5000 Unit/0.5ml) 5,000 unit Q8 SQ 02/28/18 22:00 03/30/18 21:59 03/01/18 06:00 5,000 UNIT Acetaminophen (Tylenol Tab) 650 mg Q4H PRN PO 02/28/18 15:00 03/30/18 14:59 03/01/18 15:42 650 MG Magnesium Hydroxide (Milk Of Magnesia Susp) 30 ml Q12H PRN PO 02/28/18 15:00 03/30/18 14:59 Ondansetron HCl (Zofran Inj) 4 mg Q6H PRN IV 02/28/18 15:00 03/30/18 14:59 Nitroglycerin (Nitrostat Tab) 0.4 mg UD PRN SL 02/28/18 15:00 03/30/18 14:59 Insulin Aspart (novoLOG ASPART) SLIDING SCALE If C... ACHS SC 02/28/18 16:00 03/30/18 15:59 03/01/18 08:03 3 UNITS Glucose (Glucose 40% Gel) 15-30 GRAMS 15 GRAMS... UD PRN PO 02/28/18 15:00 03/30/18 14:59 Glucose (Glucose Chew Tab) 4-8 Tablets 4 Tabl... UD PRN PO 02/28/18 15:00 03/30/18 14:59 Dextrose (Dextrose 50% 50ML Syringe) 25-50ML 25ML FOR ... UD PRN IV 02/28/18 15:00 03/30/18 14:59 Glucagon (Glucagon Inj) 1 mg UD PRN SQ 02/28/18 15:00 03/30/18 14:59 Carbohydrates (Carbohydrates For Hypoglycemia) 15-30 GRAMS 15 grams if BSG 54-69... UD PRN PO 02/28/18 15:00 03/30/18 14:59 Carvedilol (Coreg Tab) 12.5 mg BID PO 7/23/18 21:00 03/30/18 20:59 03/01/18 07:56 12.5 MG Carvedilol (Coreg Tab) 25 mg BID PO 02/28/18 21:00 03/30/18 20:59 03/01/18 07:55 25 MG Estradiol (Estradiol 0.1 Mg Transdermal) 0.1 mg Mo@0900 TD 03/07/18 09:00 04/06/18 08:59 Ferrous Sulfate (Feosol Tab) 325 mg BID PO 02/28/18 21:00 03/30/18 20:59 03/01/18 07:55 325 MG Finasteride (Proscar Tab) 5 mg DAILY PO 03/01/18 09:00 03/31/18 08:59 03/01/18 07:56 5 MG Latanoprost (Xalatan Oph Soln) 1 drops HS OPB 02/28/18 21:00 03/30/18 20:59 02/28/18 20:53 1 DROPS Multivitamins (Multivitamin Tab) 1 tab DAILY PO 03/01/18 09:00 03/31/18 08:59 03/01/18 07:55 1 TAB Non-Formulary Medication (Darunavir Ethanolate (Prezista)) 800 mg QAM PO 03/01/18 09:00 03/31/18 08:59 UNV Elvitegravir/ Cobicis/Emtricit/ Tenof (Genvoya 120-697-866-10 Mg) 1 tab DAILY PO 03/01/18 09:00 03/31/18 08:59 Metoprolol Tartrate (Lopressor Iv) 5 mg Q4 PRN IV 02/28/18 15:00 03/30/18 14:59 03/01/18 04:04 5 MG Miscellaneous (Remove Patch) 1 ea Mo@0859 N/A 03/07/18 08:59 04/06/18 08:58 Amlodipine Besylate (Norvasc Tab) 5 mg QAM PO 03/01/18 11:00 03/31/18 10:59 03/01/18 11:54 5 MG Spironolactone (Aldactone Tab) 25 mg QAM PO 03/02/18 09:00 04/01/18 08:59 Family History Diabetes mellitus Hypertension Mother had been on IHD. Cause of ESRD is unknown. Social History Smoking Status: Never Smoker Alcohol Use: none Drug Use: none Marital Status: single Housing Status: other Occupation: unemployed Incarcerated. Smoking history is unknown Review of Systems Constitutional: No fever Eyes: No worsening of vision Cardiovascular: No chest pain Abdomen: No pain, No nausea, No vomiting, No diarrhea Genitourinary - Male: No dysuria, No urinary hesitancy, No urinary retention Neurologic: No weakness Integumentary: No rash, No itch A complete review of systems was performed. Pertinent positives are noted above. All other systems are negative. Physical Exam Date Time Temp Pulse Resp B/P (MAP) Pulse Ox O2 Delivery O2 Flow Rate FiO2 03/01/18 14:53 36.7 61 19 182/88 (119) 98 03/01/18 12:17 36.8 60 18 185/87 (119) 97 Room Air 03/01/18 08:00 Room Air 03/01/18 07:42 36.6 60 18 161/72 (101) 98 Room Air 03/01/18 05:42 60 216/96 (136) 03/01/18 04:04 62 207/95 03/01/18 04:02 36.5 60 18 220/102 (141) 98 Room Air 207/95 (132) 03/01/18 00:11 62 194/92 03/01/18 00:06 36.8 60 16 192/94 (126) 98 Room Air 02/28/18 22:33 60 187/78 (114) 02/28/18 20:43 60 206/97 (133) 02/28/18 20:00 99 Room Air 02/28/18 19:41 60 199/90 02/28/18 19:15 36.8 60 16 199/90 (126) 99 Room Air 02/28/18 18:30 195/87 (123) 02/28/18 18:13 36.8 61 18 209/94 98 Room Air 02/28/18 17:59 61 209/94 General Appearance: no apparent distress Head: normocephalic, + pertinent finding (small ecchymotic area behind L ear) Eyes: PERRL, EOMI ENT: + pertinent finding (dry mucous membranes) Neck: supple, no adenopathy, no JVD Respiratory/Chest: lungs clear, no respiratory distress Cardiovascular: regular rate, rhythm Abdomen/GI: normal bowel sounds, non tender, soft, + pertinent finding (No arterial bruit) Extremities/Musculoskelatal: no calf tenderness, no pedal edema Neurologic/Psych: alert, oriented x 3 Skin: warm/dry, no rash Lymphatic: no adenopathy Laboratory Results Last 24 Hours Test 02/28/18 17:27 02/28/18 20:40 03/01/18 06:17 03/01/18 06:23 Bedside Glucose 110 mg/dl 112 mg/dl Estimated Average Glucose 100 mg/dl Hemoglobin A1c 5.1 % Sodium Level 139 mmol/L Potassium Level 4.8 mmol/L Chloride Level 112 mmol/L Carbon Dioxide Level 19 mmol/L Anion Gap 8.0 mmol/L Blood Urea Nitrogen 46 mg/dl Creatinine 3.22 mg/dl Est Creatinine Clear Calc Drug Dose 19.3 ml/min Estimated GFR () 22.3 Estimated GFR (Non- 19.3 BUN/Creatinine Ratio 14.3 Random Glucose 167 mg/dl Calcium Level 7.8 mg/dl Test 03/01/18 07:26 03/01/18 11:48 03/01/18 14:30 Bedside Glucose 180 mg/dl 92 mg/dl Arterial Blood pH 7.42 Arterial Blood Partial Pressure CO2 33 mmHg Arterial Blood Partial Pressure O2 101 mm/Hg Arterial Blood HCO3 21 mmol/L Arterial Blood Oxygen Saturation 97.2 % Arterial Blood Base Excess -2.6 mEq/L Arterial Blood Gas Delivery ROOM AIR Epi Test POS Impression (1) Acute kidney injury (2) CKD (chronic kidney disease), stage III (3) HTN (hypertension) (4) HIV (human immunodeficiency virus infection) (5) DM type 2 (diabetes mellitus, type 2) (6) [id number] transgender person (7) SSS (sick sinus syndrome) (8) Pacemaker Patient was not adequately beta blocked at the time of presentation. This calls into question whether she was maintained on Carvedilol therapy following her last discharge from the hospital. Medical records and medication list from [facility] are not yet available. Patient was on diuretic therapy and clinically appears volume contracted. Head CT was negative for acute intracranial bleed / mass. Urinalysis has not yet been completed. Renal US revealed 9.5 - 10 cm kidneys without obstruction. Renal artery doppler was negative for CLARIBEL. Recommendations ACUTE KIDNEY INJURY: -- Hold diuretic -- Provide gentle hydration -- Check FeNa -- Renal US negative for obstruction -- Monitor serial PRP, I&O's CHRONIC KIDNEY DISEASE: -- Baseline creatinine has been 2.0 - 2.5. Renal impairment is likely on the basis of HTN, DM and HIV+ status HYPERTENSION: -- Continue Carvedilol and Amlodipine as previously prescribed -- Hold Bumex. Patient appears clinically volume contracted -- Start Spironolactone 25 mg daily OTHER: -- Will request medication list from I
[2018-03-01] MEDS: DARUNAVIR ETHANOLATE 800 MG TAB PO SCH (17:28)
[2018-03-01] MEDS: ELVITEGRAVIR COBICISTAT EMTRIC PO SCH (17:28)
[2018-03-01] MEDS: LATANOPROST 0.005% OP SOLN 2.5 ML BTL OPB SCH (21:04)
--- NOTE | 2018-03-01 22:53 | Progress Note ---
Subjective Date of Service: Mar 01, 2018. Subjective Pt evaluation today including: conversation w/ patient, physical exam, lab review, conversation w/ hr consultant, review of inpatient medication list Pain: no pain PO Intake: adequate Voiding: no voiding problems patient feeling better since admission, she is happy that her blood pressure is improved discussed lab results, Cr still elevated at 3.2, her baseline is 2.0-2.5 mild acidosis on lab work, non-gapped, high chloride checked ABG, no evidence of acidosis urine studies obtained, FENa calculated to be 5.0% but could be falsely elevated with Bumex urine protein/Cr ratio elevated at 4.1 per patient, her blood pressures are normally well controlled in the 150's systolic, she is compliant with her Coreg, compliant with HIV medications Problem List Medical Problems: (1) Acute renal failure Status: Acute (2) Bradycardia Status: Acute (3) Cardiopulmonary arrest Status: Acute (4) GI bleed Status: Acute (5) Heart block Status: Acute (6) Renal failure Status: Acute Review of Systems Constitutional: + weakness, + fatigue All Other Systems: Reviewed and Negative Medications Current Inpatient Medications Medications (Trade) Dose Ordered Sig/Carlin Route Start Time Stop Time Status Last Admin Dose Admin Heparin Sodium (Porcine) (Heparin Sq 5000 Unit/0.5ml) 5,000 unit Q8 SQ 02/28/18 22:00 03/30/18 21:59 03/01/18 21:31 5,000 UNIT Acetaminophen (Tylenol Tab) 650 mg Q4H PRN PO 02/28/18 15:00 03/30/18 14:59 03/01/18 15:42 650 MG Magnesium Hydroxide (Milk Of Magnesia Susp) 30 ml Q12H PRN PO 02/28/18 15:00 03/30/18 14:59 Ondansetron HCl (Zofran Inj) 4 mg Q6H PRN IV 02/28/18 15:00 03/30/18 14:59 Nitroglycerin (Nitrostat Tab) 0.4 mg UD PRN SL 02/28/18 15:00 03/30/18 14:59 Insulin Aspart (novoLOG ASPART) SLIDING SCALE If C... ACHS SC 02/28/18 16:00 03/30/18 15:59 03/01/18 17:40 5 UNITS Glucose (Glucose 40% Gel) 15-30 GRAMS 15 GRAMS... UD PRN PO 02/28/18 15:00 03/30/18 14:59 Glucose (Glucose Chew Tab) 4-8 Tablets 4 Tabl... UD PRN PO 02/28/18 15:00 03/30/18 14:59 Dextrose (Dextrose 50% 50ML Syringe) 25-50ML 25ML FOR ... UD PRN IV 02/28/18 15:00 03/30/18 14:59 Glucagon (Glucagon Inj) 1 mg UD PRN SQ 02/28/18 15:00 03/30/18 14:59 Carbohydrates (Carbohydrates For Hypoglycemia) 15-30 GRAMS 15 grams if BSG 54-69... UD PRN PO 02/28/18 15:00 03/30/18 14:59 Carvedilol (Coreg Tab) 12.5 mg BID PO 02/28/18 21:00 03/30/18 20:59 03/01/18 21:04 12.5 MG Carvedilol (Coreg Tab) 25 mg BID PO 02/28/18 21:00 03/30/18 20:59 03/01/18 21:04 25 MG Estradiol (Estradiol 0.1 Mg Transdermal) 0.1 mg Mo@0900 TD 03/07/18 09:00 04/06/18 08:59 Ferrous Sulfate (Feosol Tab) 325 mg BID PO 02/28/18 21:00 03/30/18 20:59 03/01/18 21:05 325 MG Finasteride (Proscar Tab) 5 mg DAILY PO 03/01/18 09:00 03/31/18 08:59 03/01/18 07:56 5 MG Latanoprost (Xalatan Oph Soln) 1 drops HS OPB 02/28/18 21:00 03/30/18 20:59 03/01/18 21:04 1 DROPS Multivitamins (Multivitamin Tab) 1 tab DAILY PO 03/01/18 09:00 03/31/18 08:59 03/01/18 07:55 1 TAB Non-Formulary Medication (Darunavir Ethanolate (Prezista)) 800 mg QAM PO 03/01/18 09:00 03/31/18 08:59 UNV Elvitegravir/ Cobicis/Emtricit/ Tenof (Genvoya 971-775-337-10 Mg) 1 tab DAILY PO 03/01/18 09:00 03/31/18 08:59 03/01/18 17:28 1 TAB Metoprolol Tartrate (Lopressor Iv) 5 mg Q4 PRN IV 02/28/18 15:00 03/30/18 14:59 03/01/18 04:04 5 MG Miscellaneous (Remove Patch) 1 ea Mo@0859 N/A 03/07/18 08:59 04/06/18 08:58 Amlodipine Besylate (Norvasc Tab) 5 mg QAM PO 03/01/18 11:00 03/31/18 10:59 03/01/18 11:54 5 MG Spironolactone (Aldactone Tab) 25 mg QAM PO 03/02/18 09:00 04/01/18 08:59 Objective Vital Signs Date Time Temp Pulse Resp B/P (MAP) Pulse Ox O2 Delivery O2 Flow Rate FiO2 03/01/18 19:40 36.7 64 20 159/78 (105) 96 Room Air 03/01/18 16:00 98 Room Air 03/01/18 14:53 36.7 61 19 182/88 (119) 98 03/01/18 12:17 36.8 60 18 185/87 (119) 97 Room Air 03/01/18 08:00 Room Air 03/01/18 07:42 36.6 60 18 161/72 (101) 98 Room Air 03/01/18 05:42 60 216/96 (136) 03/01/18 04:04 62 207/95 03/01/18 04:02 36.5 60 18 220/102 (141) 98 Room Air 207/95 (132) 03/01/18 00:11 62 194/92 03/01/18 00:06 36.8 60 16 192/94 (126) 98 Room Air Physical Exam General Appearance: WD/WN, no apparent distress Eyes: normal inspection, EOMI, sclerae normal ENT: normal ENT inspection, hearing grossly normal, pharynx normal Neck: supple, no adenopathy, no JVD, trachea midline Respiratory/Chest: chest non-tender, lungs clear, normal breath sounds, no respiratory distress, no accessory muscle use Cardiovascular: regular rate, rhythm, no edema, no gallop, no JVD, no murmur Abdomen: normal bowel sounds, non tender, soft, no organomegaly Extremities: normal range of motion, non-tender, normal inspection, no pedal edema, no calf tenderness, pelvis stable 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, no motor/sensory deficits, alert, normal mood/affect, oriented x 3 Skin: normal color, warm/dry, no rash Laboratory Results Last 24 Hours Test 03/01/18 06:17 03/01/18 06:23 03/01/18 07:26 03/01/18 11:48 Estimated Average Glucose 100 mg/dl Hemoglobin A1c 5.1 % Sodium Level 139 mmol/L Potassium Level 4.8 mmol/L Chloride Level 112 mmol/L Carbon Dioxide Level 19 mmol/L Anion Gap 8.0 mmol/L Blood Urea Nitrogen 46 mg/dl Creatinine 3.22 mg/dl Est Creatinine Clear Calc Drug Dose 19.3 ml/min Estimated GFR () 22.3 Estimated GFR (Non- 19.3 BUN/Creatinine Ratio 14.3 Random Glucose 167 mg/dl Calcium Level 7.8 mg/dl Bedside Glucose 180 mg/dl 92 mg/dl Test 03/01/18 14:30 03/01/18 16:03 03/01/18 16:29 03/01/18 20:36 Arterial Blood pH 7.42 Arterial Blood Partial Pressure CO2 33 mmHg Arterial Blood Partial Pressure O2 101 mm/Hg Arterial Blood HCO3 21 mmol/L Arterial Blood Oxygen Saturation 97.2 % Arterial Blood Base Excess -2.6 mEq/L Arterial Blood Gas Delivery ROOM AIR Epi Test POS Urine Color YELLOW Urine Appearance CLEAR Urine pH 6.5 Urine Specific Gower 1.011 Urine Protein 3+ Urine Glucose (UA) NEG Urine Ketones NEG Urine Occult Blood NEG Urine Nitrite NEG Urine Bilirubin NEG Urine Urobilinogen NEG Urine Leukocyte Esterase TRACE Urine WBC (Auto) 5-10 /hpf Urine RBC (Auto) 0-4 /hpf Urine Hyaline Casts (Auto) 1-5 /lpf Urine Epithelial Cells (Auto) 10-20 /lpf Urine Bacteria (Auto) NEG Urine Random Creatinine 38.8 mg/dl Urine Random Total Protein 158.2 mg/dl Urine Random Sodium 83 mEq/L Urine Protein/Creatinine Ratio 4.1 Bedside Glucose 126 mg/dl 126 mg/dl Assessment and Plan 62 y/o M to F transgender who was admitted on 02/28 with HTN emergency and ARF. HTN emergency: uncertain etiology Renal US without obstruction, no CLARIBEL seen continue Coreg 37.5mg BID Norvasc 5mg daily added, may increase to 10mg tomorrow AM depending on blood pressure in the AM Denies changes in meds or missed meds CT head neg EKG RBBB, paced Trop neg x1 Acute kidney injury on CKD stage III: uncertain etiology Holding glipizide and statin continue fluids, hold Bumex as patient is volume contracted making adequate urine Cr is 3.2, baseline is 2.0-2.5 high levels of proteinuria and FENa is 5.0%, could be spuriously high due to Bumex appreciate nephrology consultation from Dr. Mitchell Non-gapped, high chloride metabolic acidosis pH normal on ABG HCO3 slightly low at 19 will repeat tomorrow AM, likely from LEEROY SSS: s/p pacer, stable DM: holding glipizide SSI PRN monitor for hypoglycemia HIV: meds as prior Transgender status: estrogen as prior Other: Full code DM AHA diet Heparin for DVT proph
[2018-03-02] VITALS (8 sets, daily range): BP systolic 149–180; BP diastolic 80–92; PULSE 60–66; TEMP 36.5–37.1; O2SAT 95–98
[2018-03-02] MEDS: METOPROLOL TARTRATE 1 MG/ML VIAL IV PRN (04:31)
[2018-03-02] MEDS: HEPARIN SOD 5000 UNIT/0.5 ML CARP SQ SCH ×3 (05:43→21:16)
[2018-03-02 08:23] LABS: ALBUMIN 2.9 gm/dl (3.4-5.0); CREATININE 2.94 mg/dl (0.60-1.40); POTASSIUM 4.9 mmol/L (3.5-5.1); TOTAL PROTEIN 7.1 gm/dl (6.4-8.2)
[2018-03-02] MEDS ORDERED: SPIRONOLACTONE 25 MG TAB PO SCH (09:00)
[2018-03-02] MEDS: FERROUS SULFATE 325 MG TAB PO SCH ×2 (09:04→21:13)
[2018-03-02] MEDS: CARVEDILOL 12.5 MG TAB PO SCH ×2 (09:04→21:12)
[2018-03-02] MEDS: MULTIVITAMIN TAB PO SCH (09:04)
[2018-03-02] MEDS: AMLODIPINE BESYLATE 5 MG TAB PO SCH (09:05)
[2018-03-02] MEDS: FINASTERIDE 5 MG TAB PO SCH (09:05)
[2018-03-02] MEDS: CARVEDILOL 25 MG TAB PO SCH ×2 (09:05→21:13)
[2018-03-02] MEDS: ELVITEGRAVIR COBICISTAT EMTRIC PO SCH (09:08)
[2018-03-02] MEDS: INSULIN ASPART 100 UNITS/ML 3 ML PEN SC SCH ×4 (09:08→21:15)
[2018-03-02] MEDS: DARUNAVIR ETHANOLATE 800 MG TAB PO SCH (09:09)
[2018-03-02] MEDS ORDERED: AMLODIPINE BESYLATE 5 MG TAB PO ONE (12:00)
--- NOTE | 2018-03-02 13:17 | Nephrology Progress Note ---
Nephrology Progress Note Date of Service Mar 02, 2018. Chief Complaint Acute on chronic kidney injury, hypertensive urgency Subjective Stacey was seen & examined in her hospital room this morning. She reports that her HARRIS has resolved. She tolerated gentle hydration without dyspnea. Stacey voiced no new medical concerns. Review of Systems Constitutional: No fever Cardiovascular: No chest pain Respiratory: No dyspnea at rest Abdomen: No pain, No nausea, No vomiting Genitourinary - Male: No dysuria Extremities: No leg edema Integumentary: No rash A complete review of systems was performed. Pertinent positives are noted above. All other systems are negative. Vital Signs Last 8 Hrs Date Time Temp Pulse Resp B/P (MAP) Pulse Ox O2 Delivery O2 Flow Rate FiO2 03/02/18 08:00 Room Air 03/02/18 07:40 36.9 60 19 177/82 (113) 97 Room Air Last Recorded Weight Weight (Kilograms): 63.400 Physical Exam General Appearance: no apparent distress Head: normocephalic Eyes: PERRL, EOMI Neck: no adenopathy Respiratory/Chest: lungs clear, no respiratory distress Cardiovascular: regular rate, rhythm Abdomen/GI: normal bowel sounds, non tender, soft Extremities/Musculoskelatal: no calf tenderness, no pedal edema Neurologic/Psych: alert, oriented x 3 Family History Diabetes mellitus Hypertension Mother had been on IHD. Cause of ESRD is unknown. Social History Alcohol Use: none Drug Use: none Marital Status: single Housing Status: other Occupation: unemployed Incarcerated. Smoking history is unknown Laboratory Results Past 24 Hours 03/02/18 07:09 Test 03/01/18 14:30 03/01/18 16:03 03/01/18 16:29 03/01/18 20:36 Arterial Blood pH 7.42 (7.35-7.45) Arterial Blood Partial Pressure CO2 33 mmHg (35-46) Arterial Blood Partial Pressure O2 101 mm/Hg (80-95) Arterial Blood HCO3 21 mmol/L (19-24) Arterial Blood Oxygen Saturation 97.2 % (90-95) Arterial Blood Base Excess -2.6 mEq/L (-9-1.8) Arterial Blood Gas Delivery ROOM AIR Epi Test POS (POS) Urine Color YELLOW Urine Appearance CLEAR (CLEAR) Urine pH 6.5 (4.5-7.5) Urine Specific [place] 1.011 (1.000-1.030) Urine Protein 3+ (NEG) Urine Glucose (UA) NEG (NEG) Urine Ketones NEG (NEG) Urine Occult Blood NEG (NEG) Urine Nitrite NEG (NEG) Urine Bilirubin NEG (NEG) Urine Urobilinogen NEG (NEG) Urine Leukocyte Esterase TRACE (NEG) Urine WBC (Auto) 5-10 /hpf (0-5) Urine RBC (Auto) 0-4 /hpf (0-4) Urine Hyaline Casts (Auto) 1-5 /lpf (0-5) Urine Epithelial Cells (Auto) 10-20 /lpf (0-5) Urine Bacteria (Auto) NEG (NEG) Urine Random Creatinine 38.8 mg/dl Urine Random Total Protein 158.2 mg/dl (0-11.9) Urine Random Sodium 83 mEq/L Urine Protein/Creatinine Ratio 4.1 (0-0.2) Bedside Glucose 126 mg/dl (70-99) 126 mg/dl (70-99) Test 03/02/18 07:09 03/02/18 11:36 Anion Gap 6.0 mmol/L (3-11) Est Creatinine Clear Calc Drug Dose 21.3 ml/min Estimated GFR () 24.9 Estimated GFR (Non- 21.5 BUN/Creatinine Ratio 14.7 (10-20) Calcium Level 8.0 mg/dl (8.5-10.1) Total Bilirubin 0.4 mg/dl (0.2-1) Aspartate Amino Transf (AST/SGOT) 15 U/L (15-37) Alanine Aminotransferase (ALT/SGPT) 17 U/L (12-78) Alkaline Phosphatase 82 U/L (45-117) Total Protein 7.1 gm/dl (6.4-8.2) Albumin 2.9 gm/dl (3.4-5.0) Globulin 4.2 gm/dl (2.5-4.0) Albumin/Globulin Ratio 0.7 (0.9-2) Bedside Glucose 169 mg/dl (70-99) Allergies Coded Allergies: Penicillins (Verified Allergy, Intermediate, UNKNOWN, 02/28/18) Medications Current Inpatient Medications Medications (Trade) Dose Ordered Sig/Carlin Route Start Time Stop Time Status Last Admin Dose Admin Heparin Sodium (Porcine) (Heparin Sq 5000 Unit/0.5ml) 5,000 unit Q8 SQ 02/28/18 22:00 8/22/18 21:59 03/02/18 05:43 5,000 UNIT Acetaminophen (Tylenol Tab) 650 mg Q4H PRN PO 02/28/18 15:00 03/30/18 14:59 03/01/18 15:42 650 MG Magnesium Hydroxide (Milk Of Magnesia Susp) 30 ml Q12H PRN PO 02/28/18 15:00 03/30/18 14:59 Ondansetron HCl (Zofran Inj) 4 mg Q6H PRN IV 02/28/18 15:00 03/30/18 14:59 Nitroglycerin (Nitrostat Tab) 0.4 mg UD PRN SL 02/28/18 15:00 03/30/18 14:59 Insulin Aspart (novoLOG ASPART) SLIDING SCALE If C... ACHS SC 02/28/18 16:00 03/30/18 15:59 03/02/18 12:31 5 UNITS Glucose (Glucose 40% Gel) 15-30 GRAMS 15 GRAMS... UD PRN PO 02/28/18 15:00 03/30/18 14:59 Glucose (Glucose Chew Tab) 4-8 Tablets 4 Tabl... UD PRN PO 02/28/18 15:00 03/30/18 14:59 Dextrose (Dextrose 50% 50ML Syringe) 25-50ML 25ML FOR ... UD PRN IV 02/28/18 15:00 03/30/18 14:59 Glucagon (Glucagon Inj) 1 mg UD PRN SQ 02/28/18 15:00 03/30/18 14:59 Carbohydrates (Carbohydrates For Hypoglycemia) 15-30 GRAMS 15 grams if BSG 54-69... UD PRN PO 02/28/18 15:00 03/30/18 14:59 Carvedilol (Coreg Tab) 12.5 mg BID PO 02/28/18 21:00 03/30/18 20:59 03/02/18 09:04 12.5 MG Carvedilol (Coreg Tab) 25 mg BID PO 02/28/18 21:00 03/30/18 20:59 03/02/18 09:05 25 MG Estradiol (Estradiol 0.1 Mg Transdermal) 0.1 mg Mo@0900 TD 03/07/18 09:00 04/06/18 08:59 Ferrous Sulfate (Feosol Tab) 325 mg BID PO 02/28/18 21:00 03/30/18 20:59 03/02/18 09:04 325 MG Finasteride (Proscar Tab) 5 mg DAILY PO 03/01/18 09:00 03/31/18 08:59 03/02/18 09:05 5 MG Latanoprost (Xalatan Oph Soln) 1 drops HS OPB 02/28/18 21:00 03/30/18 20:59 03/01/18 21:04 1 DROPS Multivitamins (Multivitamin Tab) 1 tab DAILY PO 03/01/18 09:00 03/31/18 08:59 03/02/18 09:04 1 TAB Non-Formulary Medication (Darunavir Ethanolate (Prezista)) 800 mg QAM PO 03/01/18 09:00 03/31/18 08:59 UNV Elvitegravir/ Cobicis/Emtricit/ Tenof (Genvoya 468-267-672-10 Mg) 1 tab DAILY PO 03/01/18 09:00 03/31/18 08:59 03/02/18 09:08 1 TAB Metoprolol Tartrate (Lopressor Iv) 5 mg Q4 PRN IV 02/28/18 15:00 03/30/18 14:59 03/02/18 04:31 5 MG Miscellaneous (Remove Patch) 1 ea Mo@0859 N/A 03/07/18 08:59 04/06/18 08:58 Spironolactone (Aldactone Tab) 25 mg QAM PO 03/02/18 09:00 04/01/18 08:59 03/02/18 09:04 25 MG Amlodipine Besylate (Norvasc Tab) 10 mg QAM PO 03/03/18 09:00 03/31/18 10:59 Impression (1) Acute kidney injury (2) CKD (chronic kidney disease), stage III (3) HTN (hypertension) (4) HIV (human immunodeficiency virus infection) (5) DM type 2 (diabetes mellitus, type 2) (6) [id number] transgender person (7) SSS (sick sinus syndrome) (8) Pacemaker Medical records from [facility] reviewed. Patient was on Carvedilol and Bumex at their facility. Upon admission to the hospital she appeared volume contracted. Head CT was negative for acute intracranial bleed / mass. Urinalysis was positive for protein but negative for blood or cellular casts. Renal US revealed 9.5 - 10 cm kidneys without obstruction. Renal artery doppler was negative for CLARIBEL. Hypertensive urgency may have been related to change in medical regimen since last hospitalization ([facility] notes do not show administration of Amlodipine). Proteinuria is likely on the basis of hypertensive nephrosclerosis, DM or HIV. Renal biopsy will not alter therapy as patient is already on antiviral therapy. Recommendations ACUTE KIDNEY INJURY: -- Creatinine is trending downward. Patient remains nonoliguric -- Hold diuretic -- Provide gentle hydration -- Renal US negative for obstruction -- Monitor serial PRP, I&O's CHRONIC KIDNEY DISEASE: -- Baseline creatinine has been 2.0 - 2.5. Renal impairment is likely on the basis of HTN, DM and HIV+ status HYPERTENSION: -- Continue Carvedilol and Amlodipine as previously prescribed -- Hold Bumex. Patient appears clinically volume contracted -- Start Losartan 25 mg daily and monitor bp, kidney function and urinary protein
[2018-03-02] MEDS ORDERED: LOSARTAN POTASSIUM 25 MG TAB PO STA (13:29)
[2018-03-02] MEDS ORDERED: SODIUM CHLORIDE 0.9% 1000ML 1,000 ML IV SCH (13:45)
--- NOTE | 2018-03-02 14:12 | Progress Note ---
Subjective Date of Service: Mar 02, 2018. Subjective Pt evaluation today including: conversation w/ patient, physical exam, lab review, review of inpatient medication list Pain: no pain PO Intake: adequate Voiding: no voiding problems patient feeling much better, no acute issues over night reviewed labs, Cr improved to 2.9 blood pressure still high, will increase Norvasc to 10mg daily discussed with Dr. 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 diabetic nephropathy would like to add TATE or ARB but has concerns for dehydration Problem List Medical Problems: (1) Acute renal failure Status: Acute (2) Bradycardia Status: Acute (3) Cardiopulmonary arrest Status: Acute (4) GI bleed Status: Acute (5) Heart block Status: Acute (6) Renal failure Status: Acute Review of Systems All Other Systems: Reviewed and Negative Medications Current Inpatient Medications Medications (Trade) Dose Ordered Sig/Carlin Route Start Time Stop Time Status Last Admin Dose Admin Heparin Sodium (Porcine) (Heparin Sq 5000 Unit/0.5ml) 5,000 unit Q8 SQ 02/28/18 22:00 03/30/18 21:59 03/02/18 13:14 5,000 UNIT Acetaminophen (Tylenol Tab) 650 mg Q4H PRN PO 02/28/18 15:00 03/30/18 14:59 03/01/18 15:42 650 MG Magnesium Hydroxide (Milk Of Magnesia Susp) 30 ml Q12H PRN PO 02/28/18 15:00 03/30/18 14:59 Ondansetron HCl (Zofran Inj) 4 mg Q6H PRN IV 02/28/18 15:00 03/30/18 14:59 Nitroglycerin (Nitrostat Tab) 0.4 mg UD PRN SL 02/28/18 15:00 03/30/18 14:59 Insulin Aspart (novoLOG ASPART) SLIDING SCALE If C... ACHS SC 02/28/18 16:00 03/30/18 15:59 03/02/18 12:31 5 UNITS Glucose (Glucose 40% Gel) 15-30 GRAMS 15 GRAMS... UD PRN PO 02/28/18 15:00 03/30/18 14:59 Glucose (Glucose Chew Tab) 4-8 Tablets 4 Tabl... UD PRN PO 02/28/18 15:00 03/30/18 14:59 Dextrose (Dextrose 50% 50ML Syringe) 25-50ML 25ML FOR ... UD PRN IV 02/28/18 15:00 03/30/18 14:59 Glucagon (Glucagon Inj) 1 mg UD PRN SQ 02/28/18 15:00 03/30/18 14:59 Carbohydrates (Carbohydrates For Hypoglycemia) 15-30 GRAMS 15 grams if BSG 54-69... UD PRN PO 02/28/18 15:00 03/30/18 14:59 Carvedilol (Coreg Tab) 12.5 mg BID PO 02/28/18 21:00 03/30/18 20:59 03/02/18 09:04 12.5 MG Carvedilol (Coreg Tab) 25 mg BID PO 02/28/18 21:00 03/30/18 20:59 03/02/18 09:05 25 MG Estradiol (Estradiol 0.1 Mg Transdermal) 0.1 mg Mo@0900 TD 03/07/18 09:00 04/06/18 08:59 Ferrous Sulfate (Feosol Tab) 325 mg BID PO 02/28/18 21:00 03/30/18 20:59 03/02/18 09:04 325 MG Finasteride (Proscar Tab) 5 mg DAILY PO 03/01/18 09:00 03/31/18 08:59 03/02/18 09:05 5 MG Latanoprost (Xalatan Oph Soln) 1 drops HS OPB 02/28/18 21:00 03/30/18 20:59 03/01/18 21:04 1 DROPS Multivitamins (Multivitamin Tab) 1 tab DAILY PO 03/01/18 09:00 03/31/18 08:59 03/02/18 09:04 1 TAB Non-Formulary Medication (Darunavir Ethanolate (Prezista)) 800 mg QAM PO 03/01/18 09:00 03/31/18 08:59 UNV Elvitegravir/ Cobicis/Emtricit/ Tenof (Genvoya 068-212-034-10 Mg) 1 tab DAILY PO 03/01/18 09:00 03/31/18 08:59 03/02/18 09:08 1 TAB Metoprolol Tartrate (Lopressor Iv) 5 mg Q4 PRN IV 02/28/18 15:00 03/30/18 14:59 03/02/18 04:31 5 MG Miscellaneous (Remove Patch) 1 ea Mo@0859 N/A 03/07/18 08:59 04/06/18 08:58 Amlodipine Besylate (Norvasc Tab) 10 mg QAM PO 03/03/18 09:00 03/31/18 10:59 Sodium Chloride 1,000 ml @ 100 mls/hr Q10H IV 03/02/18 13:45 03/02/18 23:44 03/02/18 14:01 100 MLS/HR Losartan Potassium (coZAAR TAB) 25 mg QAM PO 03/03/18 09:00 04/02/18 08:59 Objective Vital Signs Date Time Temp Pulse Resp B/P (MAP) Pulse Ox O2 Delivery O2 Flow Rate FiO2 03/02/18 12:00 36.6 60 18 158/84 (108) 97 Room Air 03/02/18 08:00 Room Air 03/02/18 07:40 36.9 60 19 177/82 (113) 97 Room Air 03/02/18 05:00 61 18 162/84 (110) 95 Room Air 03/02/18 04:31 71 180/84 03/02/18 04:12 37.0 66 18 180/92 (121) 96 Room Air 03/02/18 00:00 Room Air 03/01/18 22:52 36.8 62 18 158/79 (105) 96 Room Air 03/01/18 19:40 36.7 64 20 159/78 (105) 96 Room Air 03/01/18 16:00 98 Room Air 03/01/18 14:53 36.7 61 19 182/88 (119) 98 Physical Exam General Appearance: WD/WN, no apparent distress Eyes: normal inspection, EOMI, sclerae normal ENT: normal ENT inspection, hearing grossly normal, pharynx normal Neck: supple, no adenopathy, no JVD, trachea midline Respiratory/Chest: chest non-tender, lungs clear, normal breath sounds, no respiratory distress, no accessory muscle use Cardiovascular: regular rate, rhythm, no edema, no gallop, no JVD, no murmur Abdomen: normal bowel sounds, non tender, soft, no organomegaly Extremities: normal range of motion, non-tender, normal inspection, no pedal edema, no calf tenderness 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, no motor/sensory deficits, alert, normal mood/affect, oriented x 3 Skin: normal color, warm/dry, no rash Laboratory Results Last 24 Hours Test 03/01/18 14:30 03/01/18 16:03 03/01/18 16:29 03/01/18 20:36 Arterial Blood pH 7.42 Arterial Blood Partial Pressure CO2 33 mmHg Arterial Blood Partial Pressure O2 101 mm/Hg Arterial Blood HCO3 21 mmol/L Arterial Blood Oxygen Saturation 97.2 % Arterial Blood Base Excess -2.6 mEq/L Arterial Blood Gas Delivery ROOM AIR Epi Test POS Urine Color YELLOW Urine Appearance CLEAR Urine pH 6.5 Urine Specific [place] 1.011 Urine Protein 3+ Urine Glucose (UA) NEG Urine Ketones NEG Urine Occult Blood NEG Urine Nitrite NEG Urine Bilirubin NEG Urine Urobilinogen NEG Urine Leukocyte Esterase TRACE Urine WBC (Auto) 5-10 /hpf Urine RBC (Auto) 0-4 /hpf Urine Hyaline Casts (Auto) 1-5 /lpf Urine Epithelial Cells (Auto) 10-20 /lpf Urine Bacteria (Auto) NEG Urine Random Creatinine 38.8 mg/dl Urine Random Total Protein 158.2 mg/dl Urine Random Sodium 83 mEq/L Urine Protein/Creatinine Ratio 4.1 Bedside Glucose 126 mg/dl 126 mg/dl Test 03/02/18 07:09 03/02/18 11:36 Sodium Level 138 mmol/L Potassium Level 4.9 mmol/L Chloride Level 110 mmol/L Carbon Dioxide Level 21 mmol/L Anion Gap 6.0 mmol/L Blood Urea Nitrogen 43 mg/dl Creatinine 2.94 mg/dl Est Creatinine Clear Calc Drug Dose 21.3 ml/min Estimated GFR () 24.9 Estimated GFR (Non- 21.5 BUN/Creatinine Ratio 14.7 Random Glucose 145 mg/dl Calcium Level 8.0 mg/dl Total Bilirubin 0.4 mg/dl Aspartate Amino Transf (AST/SGOT) 15 U/L Alanine Aminotransferase (ALT/SGPT) 17 U/L Alkaline Phosphatase 82 U/L Total Protein 7.1 gm/dl Albumin 2.9 gm/dl Globulin 4.2 gm/dl Albumin/Globulin Ratio 0.7 Bedside Glucose 169 mg/dl Assessment and Plan 62 y/o M to F transgender who was admitted on 02/28 with HTN emergency and ARF. HTN emergency: uncertain etiology Renal US without obstruction, no CLARIBEL seen continue Coreg 37.5mg BID Norvasc 10mg daily Spironolactone added, 25mg daily Denies changes in meds or missed meds however, on review of old discharge med list, was supposed to be on Norvasc CT head neg EKG RBBB, paced Acute kidney injury on CKD stage III: uncertain etiology Holding glipizide and statin hold Bumex, no further fluids, drinking and eating well making adequate urine Cr down to 2.9 from 3.2, baseline is 2.0-2.5 high levels of proteinuria and FENa is 5.0%, could be spuriously high due to Bumex appreciate nephrology consultation from Dr. Mitchell proteinuria could be FSGS or diabetic nephropathy FSGS treatment would be HAART which patient already taking could consider TATE or ARB for diabetic nephropathy but high risk for dehydration, worsening renal function Non-gapped, high chloride metabolic acidosis pH normal on ABG HCO3 normal today, acidosis resolved SSS: s/p pacer, stable DM: holding glipizide SSI PRN monitor for hypoglycemia, no episodes HIV: meds as prior Transgender status: estrogen as prior Other: Full code DM AHA diet Heparin for DVT proph transfer to medical floor, check BMP tomorrow
[2018-03-02] MEDS: LATANOPROST 0.005% OP SOLN 2.5 ML BTL OPB SCH (21:10)
[2018-03-03 00:11] VITALS: BP 165/74; PULSE 65; TEMP 36.8; O2SAT 97
[2018-03-03] MEDS: HEPARIN SOD 5000 UNIT/0.5 ML CARP SQ SCH ×4 (06:00→20:56)
[2018-03-03 07:16] VITALS: BP 159/79; PULSE 62; TEMP 36.8; O2SAT 96
[2018-03-03 07:30] LABS: HEMATOCRIT 28.7 % (42-52); HEMOGLOBIN 9.7 g/dL (14.0-18.0); MEAN CELL VOLUME 94.7 fL (80-100); MEAN CORPUSCULAR HGB CONC 33.8 g/dl (32-36); MEAN PLATELET VOLUME 10.3 fL (7.4-10.4); PLATELET COUNT 166 K/uL (130-400); RED CELL DISTRIBUTION WIDTH CV 12.1 % (11.5-14.5); RED CELL DISTRIBUTION WIDTH SD 41.3 fL (36.4-46.3); WHITE BLOOD COUNT 5.41 K/uL (4.8-10.8)
[2018-03-03 08:03] LABS: CALCIUM 7.9 mg/dl (8.5-10.1); CREATININE 3.24 mg/dl (0.60-1.40); POTASSIUM 4.6 mmol/L (3.5-5.1)
[2018-03-03] MEDS: DARUNAVIR ETHANOLATE 800 MG TAB PO SCH (08:23)
[2018-03-03] MEDS: ELVITEGRAVIR COBICISTAT EMTRIC PO SCH (08:23)
[2018-03-03] MEDS: CARVEDILOL 25 MG TAB PO SCH ×2 (08:24→20:55)
[2018-03-03] MEDS: LOSARTAN POTASSIUM 25 MG TAB PO SCH (08:25)
[2018-03-03] MEDS: MULTIVITAMIN TAB PO SCH (08:25)
[2018-03-03] MEDS: CARVEDILOL 12.5 MG TAB PO SCH ×2 (08:25→20:55)
[2018-03-03] MEDS: FERROUS SULFATE 325 MG TAB PO SCH ×2 (08:26→20:55)
[2018-03-03] MEDS: FINASTERIDE 5 MG TAB PO SCH (08:26)
[2018-03-03] MEDS: AMLODIPINE BESYLATE 5 MG TAB PO SCH (08:26)
[2018-03-03] MEDS: INSULIN ASPART 100 UNITS/ML 3 ML PEN SC SCH ×4 (08:31→20:56)
--- NOTE | 2018-03-03 11:08 | Nephrology Progress Note ---
Nephrology Progress Note Date of Service Mar 03, 2018. Chief Complaint Acute on chronic kidney injury, hypertensive urgency Princess Ibarra was seen & examined in her hospital room this morning. She denies HARRIS, fever, cough, dyspnea or uremic symptoms. She reports that approximately 3 months ago she was taken to [facility] in [place], [place] and underwent [place] kidney biopsy Review of Systems Constitutional: No fever Cardiovascular: No chest pain Respiratory: No dyspnea at rest Abdomen: No pain, No nausea, No vomiting Extremities: No leg edema A complete review of systems was performed. Pertinent positives are noted above. All other systems are negative. Vital Signs Last 8 Hrs Date Time Temp Pulse Resp B/P (MAP) Pulse Ox O2 Delivery O2 Flow Rate FiO2 03/03/18 08:00 Room Air 03/03/18 07:16 36.8 62 18 159/79 (105) 96 Room Air Last Recorded Weight Weight (Kilograms): 63.400 Physical Exam General Appearance: no apparent distress Head: normocephalic, atraumatic Eyes: PERRL, EOMI Neck: supple, no adenopathy Respiratory/Chest: lungs clear, no respiratory distress Cardiovascular: regular rate, rhythm Abdomen/GI: normal bowel sounds, non tender, soft Extremities/Musculoskelatal: no calf tenderness, no pedal edema Neurologic/Psych: alert, oriented x 3 Family History Diabetes mellitus Hypertension Mother had been on IHD. Cause of ESRD is unknown. Social History Alcohol Use: none Drug Use: none Marital Status: single Housing Status: other Occupation: unemployed Incarcerated. Smoking history is unknown Laboratory Results Past 24 Hours 03/03/18 07:00 03/03/18 07:00 Test 03/02/18 11:36 03/02/18 16:13 03/02/18 19:56 03/03/18 07:00 Bedside Glucose 169 mg/dl (70-99) 85 mg/dl (70-99) 144 mg/dl (70-99) Red Blood Count 3.03 M/uL (4.7-6.1) Mean Corpuscular Volume 94.7 fL (80-100) Mean Corpuscular Hemoglobin 32.0 pg (25-34) Mean Corpuscular Hemoglobin Concent 33.8 g/dl (32-36) RDW Standard Deviation 41.3 fL (36.4-46.3) RDW Coefficient of Variation 12.1 % (11.5-14.5) Mean Platelet Volume 10.3 fL (7.4-10.4) Anion Gap 7.0 mmol/L (3-11) Est Creatinine Clear Calc Drug Dose 19.3 ml/min Estimated GFR () 22.2 Estimated GFR (Non- 19.1 BUN/Creatinine Ratio 13.1 (10-20) Calcium Level 7.9 mg/dl (8.5-10.1) Test 03/03/18 07:10 Bedside Glucose 125 mg/dl (70-99) Allergies Coded Allergies: Penicillins (Verified Allergy, Intermediate, UNKNOWN, 02/28/18) Medications Current Inpatient Medications Medications (Trade) Dose Ordered Sig/Carlin Route Start Time Stop Time Status Last Admin Dose Admin Heparin Sodium (Porcine) (Heparin Sq 5000 Unit/0.5ml) 5,000 unit Q8 SQ 02/28/18 22:00 03/30/18 21:59 03/02/18 21:16 5,000 UNIT Acetaminophen (Tylenol Tab) 650 mg Q4H PRN PO 02/28/18 15:00 03/30/18 14:59 03/01/18 15:42 650 MG Magnesium Hydroxide (Milk Of Magnesia Susp) 30 ml Q12H PRN PO 02/28/18 15:00 03/30/18 14:59 Ondansetron HCl (Zofran Inj) 4 mg Q6H PRN IV 02/28/18 15:00 03/30/18 14:59 Nitroglycerin (Nitrostat Tab) 0.4 mg UD PRN SL 02/28/18 15:00 03/30/18 14:59 Insulin Aspart (novoLOG ASPART) SLIDING SCALE If C... ACHS SC 02/28/18 16:00 03/30/18 15:59 03/03/18 08:31 4 UNITS Glucose (Glucose 40% Gel) 15-30 GRAMS 15 GRAMS... UD PRN PO 02/28/18 15:00 03/30/18 14:59 Glucose (Glucose Chew Tab) 4-8 Tablets 4 Tabl... UD PRN PO 02/28/18 15:00 03/30/18 14:59 Dextrose (Dextrose 50% 50ML Syringe) 25-50ML 25ML FOR ... UD PRN IV 02/28/18 15:00 03/30/18 14:59 Glucagon (Glucagon Inj) 1 mg UD PRN SQ 02/28/18 15:00 03/30/18 14:59 Carbohydrates (Carbohydrates For Hypoglycemia) 15-30 GRAMS 15 grams if BSG 54-69... UD PRN PO 02/28/18 15:00 03/30/18 14:59 Carvedilol (Coreg Tab) 12.5 mg BID PO 02/28/18 21:00 03/30/18 20:59 03/03/18 08:25 12.5 MG Carvedilol (Coreg Tab) 25 mg BID PO 02/28/18 21:00 03/30/18 20:59 03/03/18 08:24 25 MG Estradiol (Estradiol 0.1 Mg Transdermal) 0.1 mg Mo@0900 TD 03/07/18 09:00 04/06/18 08:59 Ferrous Sulfate (Feosol Tab) 325 mg BID PO 02/28/18 21:00 03/30/18 20:59 03/03/18 08:26 325 MG Finasteride (Proscar Tab) 5 mg DAILY PO 03/01/18 09:00 03/31/18 08:59 03/03/18 08:26 5 MG Latanoprost (Xalatan Oph Soln) 1 drops HS OPB 02/28/18 21:00 03/30/18 20:59 03/02/18 21:10 1 DROPS Multivitamins (Multivitamin Tab) 1 tab DAILY PO 03/01/18 09:00 03/31/18 08:59 03/03/18 08:25 1 TAB Non-Formulary Medication (Darunavir Ethanolate (Prezista)) 800 mg QAM PO 03/01/18 09:00 03/31/18 08:59 UNV Elvitegravir/ Cobicis/Emtricit/ Tenof (Genvoya 034-139-772-10 Mg) 1 tab DAILY PO 03/01/18 09:00 03/31/18 08:59 03/03/18 08:23 1 TAB Metoprolol Tartrate (Lopressor Iv) 5 mg Q4 PRN IV 02/28/18 15:00 03/30/18 14:59 03/02/18 04:31 5 MG Miscellaneous (Remove Patch) 1 ea Mo@0859 N/A 03/07/18 08:59 04/06/18 08:58 Amlodipine Besylate (Norvasc Tab) 10 mg QAM PO 03/03/18 09:00 03/31/18 10:59 03/03/18 08:26 10 MG Losartan Potassium (coZAAR TAB) 25 mg QAM PO 03/03/18 09:00 04/02/18 08:59 03/03/18 08:25 25 MG Impression (1) Acute kidney injury (2) CKD (chronic kidney disease), stage III (3) HTN (hypertension) (4) HIV (human immunodeficiency virus infection) (5) DM type 2 (diabetes mellitus, type 2) (6) [id number] transgender person (7) SSS (sick sinus syndrome) (8) Pacemaker Medical records from [facility] reviewed. Patient was on Carvedilol and Bumex at their facility. Upon admission to the hospital she appeared volume contracted. Head CT was negative for acute intracranial bleed / mass. Urinalysis was positive for protein but negative for blood or cellular casts. Renal US revealed 9.5 - 10 cm kidneys without obstruction. Renal artery doppler was negative for CLARIBEL. Hypertensive urgency may have been related to change in medical regimen since last hospitalization ([facility] notes do not show administration of Amlodipine). Proteinuria is likely on the basis of hypertensive nephrosclerosis, DM or HIV. Renal biopsy will not alter therapy as patient is already on antiviral therapy. Recommendations ACUTE KIDNEY INJURY: -- Creatinine remains 2.9 - 3.2. This may be patient's new baseline. -- Hold diuretic -- Stop IV fluid. Encourage oral hydration -- Renal US negative for obstruction -- Monitor serial PRP, I&O's CHRONIC KIDNEY DISEASE: -- Baseline creatinine had been 2.0 - 2.5. Renal impairment is likely on the basis of HTN, DM and HIV+ status -- Patient reports recent kidney biopsy at [facility]. Will request reports. HYPERTENSION: -- Blood pressure is mildly improved -- Continue Carvedilol and Amlodipine as previously prescribed -- Hold Bumex. Patient appears clinically volume contracted -- Continue Losartan 25 mg daily. Kidney function is relatively stable. Monitor UO and electrolyte balance
--- NOTE | 2018-03-03 12:05 | Progress Note ---
Subjective Date of Service: Mar 03, 2018. Subjective Pt evaluation today including: conversation w/ patient, physical exam, lab review, conversation w/ showroom consultant, review of inpatient medication list Pain: no pain PO Intake: adequate Voiding: no voiding problems patient feeling quite well, no headache, no pain, eating well, breathing stable reviewed labs, Cr up to 3.[address] Mitchell, he had started Losartan yesterday, may account for slight rise in Cr ideally she should be on Losartan will repeat Cr tomorrow to see if it is stabilizing around 3 Blood pressure markedly improved on the Norvasc and the Losartan in addition to the Coreg, patient pleased she is upset about having to stay longer but ultimately understands Problem List Medical Problems: (1) Acute renal failure Status: Acute (2) Bradycardia Status: Acute (3) Cardiopulmonary arrest Status: Acute (4) GI bleed Status: Acute (5) Heart block Status: Acute (6) Renal failure Status: Acute Review of Systems All Other Systems: Reviewed and Negative Medications Current Inpatient Medications Medications (Trade) Dose Ordered Sig/Carlin Route Start Time Stop Time Status Last Admin Dose Admin Heparin Sodium (Porcine) (Heparin Sq 5000 Unit/0.5ml) 5,000 unit Q8 SQ 02/28/18 22:00 03/30/18 21:59 03/02/18 21:16 5,000 UNIT Acetaminophen (Tylenol Tab) 650 mg Q4H PRN PO 02/28/18 15:00 03/30/18 14:59 03/01/18 15:42 650 MG Magnesium Hydroxide (Milk Of Magnesia Susp) 30 ml Q12H PRN PO 02/28/18 15:00 03/30/18 14:59 Ondansetron HCl (Zofran Inj) 4 mg Q6H PRN IV 02/28/18 15:00 03/30/18 14:59 Nitroglycerin (Nitrostat Tab) 0.4 mg UD PRN SL 02/28/18 15:00 03/30/18 14:59 Insulin Aspart (novoLOG ASPART) SLIDING SCALE If C... ACHS SC 02/28/18 16:00 03/30/18 15:59 03/03/18 08:31 4 UNITS Glucose (Glucose 40% Gel) 15-30 GRAMS 15 GRAMS... UD PRN PO 02/28/18 15:00 03/30/18 14:59 Glucose (Glucose Chew Tab) 4-8 Tablets 4 Tabl... UD PRN PO 02/28/18 15:00 03/30/18 14:59 Dextrose (Dextrose 50% 50ML Syringe) 25-50ML 25ML FOR ... UD PRN IV 02/28/18 15:00 03/30/18 14:59 Glucagon (Glucagon Inj) 1 mg UD PRN SQ 02/28/18 15:00 03/30/18 14:59 Carbohydrates (Carbohydrates For Hypoglycemia) 15-30 GRAMS 15 grams if BSG 54-69... UD PRN PO 02/28/18 15:00 03/30/18 14:59 Carvedilol (Coreg Tab) 12.5 mg BID PO 02/28/18 21:00 03/30/18 20:59 03/03/18 08:25 12.5 MG Carvedilol (Coreg Tab) 25 mg BID PO 02/28/18 21:00 03/30/18 20:59 03/03/18 08:24 25 MG Estradiol (Estradiol 0.1 Mg Transdermal) 0.1 mg Mo@0900 TD 03/07/18 09:00 04/06/18 08:59 Ferrous Sulfate (Feosol Tab) 325 mg BID PO 02/28/18 21:00 03/30/18 20:59 03/03/18 08:26 325 MG Finasteride (Proscar Tab) 5 mg DAILY PO 03/01/18 09:00 03/31/18 08:59 03/03/18 08:26 5 MG Latanoprost (Xalatan Oph Soln) 1 drops HS OPB 02/28/18 21:00 03/30/18 20:59 03/02/18 21:10 1 DROPS Multivitamins (Multivitamin Tab) 1 tab DAILY PO 03/01/18 09:00 03/31/18 08:59 03/03/18 08:25 1 TAB Non-Formulary Medication (Darunavir Ethanolate (Prezista)) 800 mg QAM PO 03/01/18 09:00 03/31/18 08:59 UNV Elvitegravir/ Cobicis/Emtricit/ Tenof (Genvoya 703-329-760-10 Mg) 1 tab DAILY PO 03/01/18 09:00 03/31/18 08:59 03/03/18 08:23 1 TAB Metoprolol Tartrate (Lopressor Iv) 5 mg Q4 PRN IV 02/28/18 15:00 03/30/18 14:59 03/02/18 04:31 5 MG Miscellaneous (Remove Patch) 1 ea Mo@0859 N/A 03/07/18 08:59 04/06/18 08:58 Amlodipine Besylate (Norvasc Tab) 10 mg QAM PO 03/03/18 09:00 03/31/18 10:59 03/03/18 08:26 10 MG Losartan Potassium (coZAAR TAB) 25 mg QAM PO 03/03/18 09:00 04/02/18 08:59 03/03/18 08:25 25 MG Objective Vital Signs Date Time Temp Pulse Resp B/P (MAP) Pulse Ox O2 Delivery O2 Flow Rate FiO2 03/03/18 08:00 Room Air 03/03/18 07:16 36.8 62 18 159/79 (105) 96 Room Air 03/03/18 00:11 36.8 65 20 165/74 (104) 97 Room Air 03/03/18 00:00 Room Air 03/02/18 19:05 36.5 62 20 166/82 (110) 97 Room Air 03/02/18 18:45 Room Air 03/02/18 18:19 36.6 62 18 168/81 (110) 98 Room Air 03/02/18 16:00 98 Room Air 03/02/18 15:00 37.1 60 18 149/80 (103) 98 Room Air Physical Exam General Appearance: WD/WN, no apparent distress Eyes: normal inspection, EOMI, sclerae normal ENT: normal ENT inspection, hearing grossly normal, pharynx normal Neck: supple, no adenopathy, no JVD, trachea midline Respiratory/Chest: chest non-tender, lungs clear, normal breath sounds, no respiratory distress, no accessory muscle use Cardiovascular: regular rate, rhythm, no edema, no gallop, no JVD, no murmur Abdomen: normal bowel sounds, non tender, soft, no organomegaly Extremities: normal range of motion, non-tender, normal inspection, no pedal edema, no calf tenderness, pelvis stable 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, no motor/sensory deficits, alert, normal mood/affect, oriented x 3 Skin: normal color, warm/dry, no rash Laboratory Results Last 24 Hours Test 03/02/18 16:13 03/02/18 19:56 03/03/18 07:00 03/03/18 07:10 Bedside Glucose 85 mg/dl 144 mg/dl 125 mg/dl White Blood Count 5.41 K/uL Red Blood Count 3.03 M/uL Hemoglobin 9.7 g/dL Hematocrit 28.7 % Mean Corpuscular Volume 94.7 fL Mean Corpuscular Hemoglobin 32.0 pg Mean Corpuscular Hemoglobin Concent 33.8 g/dl RDW Standard Deviation 41.3 fL RDW Coefficient of Variation 12.1 % Platelet Count 166 K/uL Mean Platelet Volume 10.3 fL Sodium Level 140 mmol/L Potassium Level 4.6 mmol/L Chloride Level 114 mmol/L Carbon Dioxide Level 19 mmol/L Anion Gap 7.0 mmol/L Blood Urea Nitrogen 42 mg/dl Creatinine 3.24 mg/dl Est Creatinine Clear Calc Drug Dose 19.3 ml/min Estimated GFR () 22.2 Estimated GFR (Non- 19.1 BUN/Creatinine Ratio 13.1 Random Glucose 125 mg/dl Calcium Level 7.9 mg/dl Test 03/03/18 11:10 03/03/18 11:12 Bedside Glucose 123 mg/dl 184 mg/dl Assessment and Plan 62 y/o M to F transgender who was admitted on 02/28 with HTN emergency and ARF. HTN emergency: uncertain etiology Renal US without obstruction, no CLARIBEL seen continue Coreg 37.5mg BID Norvasc 10mg daily Losartan 25mg daily added Denies changes in meds or missed meds however, on review of old discharge med list, was supposed to be on Norvasc discussed with patient further, she thinks they stopped this at [facility] due to leg swelling blood pressure improved, 150-160's systolic will continue the above regimen and monitor BP Acute kidney injury on CKD stage III: uncertain etiology Holding glipizide and statin hold Bumex, no further fluids, drinking and eating well making adequate urine Cr up to 3.2 from 2.9, previous baseline is 2.0-2.5 d/w Dr. Mitchell, this could be a new baseline, will repeat tomorrow ideally she should be on Losartan if Cr will tolerate, needs to help decrease proteinuria high levels of proteinuria and FENa is 5.0% proteinuria could be FSGS or diabetic nephropathy FSGS treatment would be HAART which patient already taking SSS: s/p pacer, stable DM: holding glipizide SSI PRN monitor for hypoglycemia, no episodes HIV: meds as prior Transgender status: estrogen as prior Other: Full code DM AHA diet Heparin for DVT proph repeat BMP tomorrow, possible d/c to [facility] tomorrow if Cr is stable
[2018-03-03 15:13] VITALS: BP 158/79; PULSE 60; TEMP 36.5; O2SAT 97
--- NOTE | 2018-03-03 15:20 | DIAGNOSTIC IMAGING REPORT ---
VENOUS UPR EXT MAPPING BILAT HISTORY: Preoperative evaluation end stage renal disease venous mapping COMPARISON STUDY: None. FINDINGS: The internal jugular veins are patent. There is normal flow within the subclavian veins. There is normal flow and compressibility within the bilateral axillary, basilic, brachial, radial, ulnar, and visualized cephalic veins. No specifically made that the left cephalic vein as well as components of the right cephalic vein are either not identified or demonstrate chronic thrombosis. IMPRESSION: No evidence for an acute deep venous thrombosis. 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 Venous mapping per attached worksheet. The above report was generated using voice recognition software. It may contain grammatical, syntax or spelling errors. Electronically signed by: Davion Lopez M.D. 03/03/2018 3:19 PM Dictated Date/Time: 03/03/2018 3:17 PM
[2018-03-03] MEDS: LATANOPROST 0.005% OP SOLN 2.5 ML BTL OPB SCH (20:52)
[2018-03-03 20:53] VITALS: BP 168/80; PULSE 61
[2018-03-04] VITALS: BP 148/53; PULSE 62; TEMP 36.9; O2SAT 97
[2018-03-04] MEDS: HEPARIN SOD 5000 UNIT/0.5 ML CARP SQ SCH ×2 (05:54→14:00)
[2018-03-04 06:46] LABS: CALCIUM 7.9 mg/dl (8.5-10.1); CREATININE 3.32 mg/dl (0.60-1.40); POTASSIUM 4.7 mmol/L (3.5-5.1)
[2018-03-04 07:20] VITALS: BP 166/84; PULSE 59; TEMP 36.8; O2SAT 98
[2018-03-04] MEDS: FERROUS SULFATE 325 MG TAB PO SCH (08:20)
[2018-03-04] MEDS: FINASTERIDE 5 MG TAB PO SCH (08:20)
[2018-03-04] MEDS: CARVEDILOL 25 MG TAB PO SCH (08:20)
[2018-03-04] MEDS: AMLODIPINE BESYLATE 5 MG TAB PO SCH (08:21)
[2018-03-04] MEDS: INSULIN ASPART 100 UNITS/ML 3 ML PEN SC SCH ×2 (08:27→13:28)
--- NOTE | 2018-03-04 08:34 | Surgery Consultation ---
Consultation Date of Service Mar 04, 2018. Chief Complaint Acute on chronic renal disease, need AVF creation for future HD History of Present Illness The patient is a 62 year old male to female transgender with multiple medical problems, admitted with HTN urgency and acute on chronic kidney disease, seen in consultation today for AVF creation for future HD needs. Pt state feeling ok today, denies any complaints. Denies HARRIS, fever, chills, chest pain, SOB, abd pain, N/V, rest pain, claudication, other complaints. Vein mapping US demonstrates usable R basilic V, others either too small or chronically occluded. Vitals Vital Signs Past 12 Hours Date Time Temp Pulse Resp B/P (MAP) Pulse Ox O2 Delivery O2 Flow Rate FiO2 03/04/18 07:20 36.8 59 18 166/84 (111) 98 Room Air 03/04/18 00:05 Room Air 03/04/18 00:00 36.9 62 20 148/53 (84) 97 Room Air 03/03/18 20:53 61 168/80 (109) Allergies Coded Allergies: Penicillins (Verified Allergy, Intermediate, UNKNOWN, 02/28/18) Home Medications Scheduled Bumetanide (Bumex), 2 TABS PO DAILY Carvedilol (Coreg), 12.5 MG PO BID Carvedilol (Coreg), 25 MG PO BID Darunavir Ethanolate (Prezista), 800 MG PO QAM Whgajtctuljz-Wgngznztif-Uiterr (Genvoya [id number] mg), 1 TAB PO DAILY Estradiol (Estradiol), 1 PATCH TOP WK Ferrous Sulfate (Ferrous Sulfate), 325 MG PO BID Finasteride (Proscar), 5 MG PO DAILY Glipizide (Glipizide), 10 MG PO BID Latanoprost (Xalatan 0.005% Oph Lyly), 1 DROPS OPB HS Multiple Vitamin (Thera), 1 TAB PO DAILY Rosuvastatin Calcium (Crestor), 10 MG PO DAILY Scheduled PRN Dextrose (Diabetic Use) (Glucose), 1 TAB PO QID PRN for HYPOGLYCEMIA Problem List Medical Problems: (1) Abdominal pain (2) Acute kidney injury (3) Anemia (4) Cardiac arrest (5) CKD (chronic kidney disease), stage III (6) CVA (cerebral vascular accident) (7) DM type 2 (diabetes mellitus, type 2) (8) G-6-PD deficiency (9) HIV (human immunodeficiency virus infection) (10) HTN (hypertension) (11) Hypertensive emergency (12) Syht-xa-gtjjvs transgender person (13) Pacemaker (14) Proteinuria (15) Ruptured appendicitis (16) SSS (sick sinus syndrome) Surgical / Medical History Hx Cardiac Surgery: No Hx Abdominal Surgery: Yes (Appendectomy) Hx Cancer Surgery: No Hx Thoracic Surgery: No Hx Orthopedic: No Hx Urinary Tract Surgery: No HX Other Surgery: Yes (Breast Augmentation) Past Medical/Surgical History: Heart Disease, Hypertension, Kidney Disease Family History Diabetes mellitus Hypertension Social History Smoking Status: Never Smoker Hx Tobacco Use In Past Year?: No Hx Alcohol Use - Type & Amnt: No Hx Substance Use -Type & Amnt: No Review of Systems Constitutional: No chills, No fever Skin: No change in color Eyes: No visual changes ENMT: No sore throat Respiratory: No cough, No hemoptysis, No short of breath Cardiovascular: No chest pain, No palpitations, No syncope Gastrointestinal: No abdominal pain, No vomiting, No anorexia Neurologic: No dizziness, No weakness, No headache, No numbness, No tingling Physical Exam Constitutional: General Apperance: well-developed, too thin Level of Distress: NAD, chronically ill Psychiatric: Mental Status: active & alert, normal mood, normal affect Orientation: oriented except where noted, to time, to place, to person Memory: recent memory normal, remote memory normal Head: normocephalic, atraumatic Eyes: EOM: EOMI ENMT: normal ENT inspection, hearing grossly normal Neck: supple, trachea midline Lungs: Respiratory effort: no dyspnea Auscultation: breath sounds normal, no rales/crackles, no rhonchi Cardiovascular: Apical Impulse: not displaced Heart Auscultation: RRR, no rubs, no gallops Peripheral Pulses: Pulses: full and equal, in all extremities except if noted Bruits: none appreciated Carotid Pulse: normal on the left, normal on the right Brachial Pulses: normal on the left, normal on the right Radial Pulse: normal on the left, normal on the right Femoral Pulse: normal on the left, normal on the right Posterior Tibialis Pulse: decreased on the left, decreased on the right Dorsalis Pedis Pulse: decreased on the left, decreased on the right Abdomen: Bowel Sounds: normal Inspection & Palpation: soft, non-distended, no tenderness, guarding & rebound Musculoskeletal: normal strength (5/5 throughout), normal tone Extremities: Upper Right: no cyanosis, no edema, no varicosities Upper Left: no cyanosis, no edema, no varicosities Lower Right: no cyanosis, no edema, no varicosities Lower Left: no cyanosis, no edema, no varicosities Neurologic: Cranial Nerves: grossly intact Sensation: grossly intact Assessment and Plan ASSESSMENT and PLAN: Acute on chronic kidney disease Pt's US eval by Dr Hemphill, recommends pt undergo R basilic V AVF creation and have second state transposition at later time after maturation. Discussed recs with pt, she wishes to decline at this time. She would like to discuss further with nephrology and her mother, who also is on HD. Will be happy to schedule as outpt if needed. Please call if needed.
[2018-03-04] MEDS: DARUNAVIR ETHANOLATE 800 MG TAB PO SCH (08:56)
[2018-03-04] MEDS: ELVITEGRAVIR COBICISTAT EMTRIC PO SCH (08:56)
[2018-03-04] MEDS: LOSARTAN POTASSIUM 25 MG TAB PO SCH (09:33)
[2018-03-04] MEDS: MULTIVITAMIN TAB PO SCH (09:33)
--- NOTE | 2018-03-04 09:33 | Nephrology Progress Note ---
Nephrology Progress Note Date of Service Mar 04, 2018. Chief Complaint Acute on chronic kidney injury, hypertensive urgency Subjective Stacey was seen & examined in her hospital room this morning. Results of renal biopsy 11/24 showing diabetic nephropathy reviewed. Current creatinine value and stages of CKD reviewed. Patient was encouraged to consider AVF creation. Stacey currently denies fever, angina, dyspnea or uremic symptoms Review of Systems Constitutional: No fever Cardiovascular: No chest pain Respiratory: No dyspnea at rest Abdomen: No pain, No nausea, No vomiting Extremities: No leg edema A complete review of systems was performed. Pertinent positives are noted above. All other systems are negative. Vital Signs Last 8 Hrs Date Time Temp Pulse Resp B/P (MAP) Pulse Ox O2 Delivery O2 Flow Rate FiO2 03/04/18 07:20 36.8 59 18 166/84 (111) 98 Room Air Last Recorded Weight Weight (Kilograms): 63.400 Physical Exam General Appearance: no apparent distress Head: normocephalic Eyes: PERRL, EOMI Neck: no adenopathy Respiratory/Chest: lungs clear, no respiratory distress Cardiovascular: regular rate, rhythm Abdomen/GI: normal bowel sounds, non tender, soft Extremities/Musculoskelatal: no calf tenderness, no pedal edema Neurologic/Psych: alert, oriented x 3 Family History Diabetes mellitus Hypertension Mother had been on IHD. Cause of ESRD is unknown. Social History Alcohol Use: none Drug Use: none Marital Status: single Housing Status: other Occupation: unemployed Incarcerated. Smoking history is unknown Laboratory Results Past 24 Hours 03/04/18 05:34 Test 03/03/18 11:10 03/03/18 11:12 03/03/18 16:29 03/03/18 20:43 Bedside Glucose 123 mg/dl (70-99) 184 mg/dl (70-99) 137 mg/dl (70-99) 100 mg/dl (70-99) Test 03/04/18 05:34 03/04/18 07:46 03/04/18 09:00 Anion Gap 7.0 mmol/L (3-11) Est Creatinine Clear Calc Drug Dose 18.8 ml/min Estimated GFR () 21.5 Estimated GFR (Non- 18.6 BUN/Creatinine Ratio 13.3 (10-20) Calcium Level 7.9 mg/dl (8.5-10.1) Bedside Glucose 134 mg/dl (70-99) Allergies Coded Allergies: Penicillins (Verified Allergy, Intermediate, UNKNOWN, 02/28/18) Medications Current Inpatient Medications Medications (Trade) Dose Ordered Sig/Carlin Route Start Time Stop Time Status Last Admin Dose Admin Heparin Sodium (Porcine) (Heparin Sq 5000 Unit/0.5ml) 5,000 unit Q8 SQ 02/28/18 22:00 03/30/18 21:59 03/02/18 21:16 5,000 UNIT Acetaminophen (Tylenol Tab) 650 mg Q4H PRN PO 02/28/18 15:00 03/30/18 14:59 03/01/18 15:42 650 MG Magnesium Hydroxide (Milk Of Magnesia Susp) 30 ml Q12H PRN PO 02/28/18 15:00 03/30/18 14:59 Ondansetron HCl (Zofran Inj) 4 mg Q6H PRN IV 02/28/18 15:00 03/30/18 14:59 Nitroglycerin (Nitrostat Tab) 0.4 mg UD PRN SL 02/28/18 15:00 03/30/18 14:59 Insulin Aspart (novoLOG ASPART) SLIDING SCALE If C... ACHS SC 02/28/18 16:00 03/30/18 15:59 03/04/18 08:27 5 UNITS Glucose (Glucose 40% Gel) 15-30 GRAMS 15 GRAMS... UD PRN PO 02/28/18 15:00 03/30/18 14:59 Glucose (Glucose Chew Tab) 4-8 Tablets 4 Tabl... UD PRN PO 02/28/18 15:00 03/30/18 14:59 Dextrose (Dextrose 50% 50ML Syringe) 25-50ML 25ML FOR ... UD PRN IV 02/28/18 15:00 03/30/18 14:59 Glucagon (Glucagon Inj) 1 mg UD PRN SQ 02/28/18 15:00 03/30/18 14:59 Carbohydrates (Carbohydrates For Hypoglycemia) 15-30 GRAMS 15 grams if BSG 54-69... UD PRN PO 02/28/18 15:00 03/30/18 14:59 Carvedilol (Coreg Tab) 12.5 mg BID PO 02/28/18 21:00 03/30/18 20:59 03/03/18 20:55 12.5 MG Carvedilol (Coreg Tab) 25 mg BID PO 02/28/18 21:00 03/30/18 20:59 03/04/18 08:20 25 MG Estradiol (Estradiol 0.1 Mg Transdermal) 0.1 mg Mo@0900 TD 03/07/18 09:00 04/06/18 08:59 Ferrous Sulfate (Feosol Tab) 325 mg BID PO 02/28/18 21:00 03/30/18 20:59 03/04/18 08:20 325 MG Finasteride (Proscar Tab) 5 mg DAILY PO 03/01/18 09:00 03/31/18 08:59 03/04/18 08:20 5 MG Latanoprost (Xalatan Oph Soln) 1 drops HS OPB 02/28/18 21:00 03/30/18 20:59 03/03/18 20:52 1 DROPS Multivitamins (Multivitamin Tab) 1 tab DAILY PO 03/01/18 09:00 03/31/18 08:59 03/03/18 08:25 1 TAB Non-Formulary Medication (Darunavir Ethanolate (Prezista)) 800 mg QAM PO 03/01/18 09:00 03/31/18 08:59 UNV Elvitegravir/ Cobicis/Emtricit/ Tenof (Genvoya [phone] Mg) 1 tab DAILY PO 03/01/18 09:00 03/31/18 08:59 03/04/18 08:56 1 TAB Metoprolol Tartrate (Lopressor Iv) 5 mg Q4 PRN IV 02/28/18 15:00 03/30/18 14:59 03/02/18 04:31 5 MG Miscellaneous (Remove Patch) 1 ea Mo@0859 N/A 03/07/18 08:59 04/06/18 08:58 Amlodipine Besylate (Norvasc Tab) 10 mg QAM PO 03/03/18 09:00 03/31/18 10:59 03/04/18 08:21 10 MG Losartan Potassium (coZAAR TAB) 25 mg QAM PO 03/03/18 09:00 04/02/18 08:59 03/03/18 08:25 25 MG Impression (1) Acute kidney injury (2) CKD (chronic kidney disease), stage III (3) HTN (hypertension) (4) HIV (human immunodeficiency virus infection) (5) DM type 2 (diabetes mellitus, type 2) (6) Viao-pj-gokcnp transgender person (7) SSS (sick sinus syndrome) (8) Pacemaker Medical records from [facility] reviewed. Patient was on Carvedilol and Bumex at their facility. Upon admission to the hospital she appeared volume contracted. Head CT was negative for acute intracranial bleed / mass. Urinalysis was positive for protein but negative for blood or cellular casts. Renal US revealed 9.5 - 10 cm kidneys without obstruction. Renal artery doppler was negative for CLARIBEL. Hypertensive urgency may have been related to change in medical regimen since last hospitalization ([facility] notes do not show administration of Amlodipine). Proteinuria is likely on the basis of hypertensive nephrosclerosis, DM or HIV. Renal biopsy was completed at [facility] 11/24. 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 This may be patient's new baseline. -- Hold diuretic -- Encourage oral hydration -- Renal US negative for obstruction -- Monitor serial PRP, I&O's CHRONIC KIDNEY DISEASE: -- 11/24 Renal Biopsy revealed diabetic glomerulosclerosis. Baseline creatinine has risen to ~ 3.2 -- Vascular surgery has met with patient and discussed AVF creation. She will likely require a two step procedure: upper arm Brachiocephalic AVF with transposition -- Indications/benefits/risks to AVF discussed in detail w/ patient today. Benefits of early vascular access creation was emphasized. Patient voiced understanding but wishes to think about her options and discuss with her family. She understands to contact [facility] physician if she decides to pursue AVF. HYPERTENSION: -- Blood pressure is mildly improved -- Continue Carvedilol, Amlodipine and Losartan as previously prescribed -- Continue to hold Bumex. No evidence of volume overload at this time Kidney function is stable and blood pressure is reasonable. If discharge is anticipated patient should follow up at [facility] in 1 - 2 weeks.
[2018-03-04] MEDS: CARVEDILOL 12.5 MG TAB PO SCH (09:34)
[2018-03-04] MEDS ORDERED: NRV5 PO (13:01)
[2018-03-04] MEDS ORDERED: CZR25 PO (13:01)
--- NOTE | 2018-03-04 13:11 | Discharge Instructions ---
Discharge Instructions Date of Service Mar 04, 2018. Admission Reason for Admission: Hypertensive Emergency Discharge Discharge Diagnosis / Problem: Hypertensive urgency, CKD stage IV, diabetic nephropathy Discharge Goals Goal(s): Improve function, Improve disease control Activity Recommendations Activity Limitations: resume your previous activity . Instructions / Follow-Up Instructions / Follow-Up Medications: - LOSARTAN: 25mg daily, this is new medication to treat blood pressure but also for renal protection - NORVASC: 10mg daily, added for blood pressure control - BUMEX: this medication has been STOPPED, no signs of volume overload on exam - GLIPIZIDE: cannot use this now due to worsening renal function, HbA1c actually 5.1 so medications not required at this point HTN emergency: uncertain etiology Renal US without obstruction, no Renal artery stenosis seen continue Coreg 37.5mg BID Norvasc 10mg daily, added this admission Losartan 25mg daily added this admission blood pressure improved, 150-160's systolic will continue the above regimen and monitor BP at [facility] Acute kidney injury on CKD stage III, actually progressed to CKD stage IV: etiology is diabetic nephropathy had a kidney biopsy at [facility] in 2018 that showed this diagnosis discontinue Bumex, euvolemic making adequate urine Cr ranged from 2.9 to 3.3 while here, likely her new baseline significant proteinuria found on urinalysis Dr. Mitchell recommends starting Losartan 25mg daily for proteinuria, renal protection consultation placed with vascular surgery to consider placement of fistula patient would like to wait and discuss with her family prior to proceeding patient should have a repeat BMP next week and follow up with physician at [facility] next week after labs are drawn she is instructed to tell physician if she decides to get fistula placed please contact Dr. Hemphill with [facility] Vascular surgery if patient wants fistula should follow up with Dr. Mitchell with [facility] in 3-4 weeks DM: discontinue Glipizide due to worsening renal function sugars stable here on diabetic diet HbA1c 5.1 Current Hospital Diet Patient's current hospital diet: Diabetes Type 2 Diet, AHA Diet (Heart Healthy) , Renal Diet Discharge Diet Recommended Diet: Diabetes Type 2 Diet, Renal Diet Pending Studies Studies pending at discharge: no Laboratory Results Hemoglobin A1c Test 03/01/18 06:17 Range/Units Estimated Average Glucose 100 mg/dl Hemoglobin A1c 5.1 4.5-5.6 % Medical Emergencies . Who to Call and When: Medical Emergencies: If at any time you feel your situation is an emergency, please call 911 immediately. . Non-Emergent Contact Non-Emergency issues call your: Primary Care Provider Call Non-Emergent contact if: you have any medication questions . . "Provider Documentation" section prepared by Lamine Drew. . [place] Drug Monitoring Program Search Results: no issues identified
[2018-03-04 13:57] VITALS: BP 166/84; PULSE 59; TEMP 36.8; O2SAT 98
--- NOTE | 2018-03-04 21:14 | Discharge Summary ---
Discharge Summary Date of Service Mar 04, 2018. Discharge Summary Admission Date: Feb 28, 2018 at 14:58 Discharge Date: Mar 04, 2018 Discharge Disposition: Home Principal Diagnosis: Hypertensive urgency Problems/Secondary Diagnoses: LEEROY on CKD stage III, progressing to CKD stage IV DM type II Transgender HIV positive Procedures: none Consultations: Nephrology Vascular surgery Medication Reconciliation New Medications: Amlodipine Besylate (Amlodipine Besylate) 5 Mg Tab 10 MG PO QAM, #60 TAB 3 Refills Losartan Potassium (Losartan Potassium) 25 Mg Tab 25 MG PO QAM, #30 TAB 3 Refills Continued Medications: Carvedilol (Coreg) 12.5 Mg Tab 12.5 MG PO BID TAKE ALONG WITH A 25 MG TABLET TO = 37.5 MG PER DOSE Carvedilol (Coreg) 25 Mg Tab 25 MG PO BID TAKE ALONG WITH A 12.5 MG TABLET TO = 37.5 MG PER DOSE Darunavir Ethanolate (Prezista) 800 Mg Tab 800 MG PO QAM Dextrose (Diabetic Use) (Glucose) 4 Gm Chw 1 TAB PO QID PRN for HYPOGLYCEMIA Wzwcpdikudbb-Figbrywfme-Efefqr (Genvoya [id number] mg) 1 Tab Tab 1 TAB PO DAILY Estradiol (Estradiol) 0.1 Mg Tdsy 1 PATCH TOP WK MONDAYS Ferrous Sulfate (Ferrous Sulfate) 325 Mg Tab 325 MG PO BID Finasteride (Proscar) 5 Mg Tab 5 MG PO DAILY Latanoprost (Xalatan 0.005% Oph Lyly) 0.005 % Lyly 1 DROPS OPB HS Multiple Vitamin (Thera) 1 Tab Tab 1 TAB PO DAILY Rosuvastatin Calcium (Crestor) 10 Mg Tab 10 MG PO DAILY Discontinued Medications: Bumetanide (Bumex) 0.5 Mg Tab 2 TABS PO DAILY Glipizide (Glipizide) 10 Mg Tab 10 MG PO BID Discharge Exam Patient feeling well, feels ready to go back to [facility]. Dr. Mitchell discussed with her the possibility of needing HD in the future and recommended considering an AV fistula creation. Vascular surgery evaluated patient, said that it would be a two step process. The patient would like to wait and talk with her family about the AV fistula. Both her mother and aunt are on hemodialysis. She is not sure she would want to pursue it. She knows to tell physician at [facility] if she wants to see vascular surgery as outpatient. Eating well, moving bowels, urinating well. No acute issues. BP well controlled on additional medications. Cr is slightly up at 3.3 but overall stable. Review of Systems: Constitutional: No fever, No chills, No sweats, No weight loss, No weakness , No fatigue, No problem reported Eyes: No worsening of vision, No eye pain, No redness, No discharge, No diplopia, No problem reported ENT: No hearing loss, No unusual epistaxis, No nasal symptoms, No sore throat, No tinnitus, No dental problems, No trouble swallowing, No problem reported Respiratory: No cough, No sputum, No wheezing, No shortness of breath, No dyspnea on exertion, No dyspnea at rest, No hemoptysis, No problem reported Cardiovascular: No chest pain, No orthopnea, No PND, No edema, No claudication, No palpitations, No problem reported Abdomen: No pain, No nausea, No vomiting, No diarrhea, No constipation, No GI bleeding, No problem reported Musculoskeletal: No joint pain, No muscle pain, No swelling, No calf pain, No problem reported Genitourinary - Female: No dysuria, No urinary frequency, No urinary urgency , No urinary incontinence, No urinary retention, No hematuria Neurologic: No memory loss, No paralysis, No weakness, No numbness/tingling , No vertigo, No balance problems, No problem reported Psychiatric: No depression symptoms, No anhedonism, No anxiety, No insomnia , No substance abuse, No problem reported Endocrine: No fatigue, No excessive thirst, No excessive urination, No problem reported Hematologic / Lymphatic: No abnormal bleeding/bruising, No clotting problems , No swollen lymph nodes, No night sweats, No problem reported Integumentary: No rash, No itch, No new/changing skin lesions, No color change, No bleeding, No problem reported Physical Exam: General Appearance: WD/WN, no apparent distress Eyes: normal inspection, EOMI, sclerae normal ENT: normal ENT inspection, hearing grossly normal, pharynx normal Neck: supple, no adenopathy, no JVD, trachea midline Respiratory/Chest: chest non-tender, lungs clear, normal breath sounds, no respiratory distress, no accessory muscle use Cardiovascular: regular rate, rhythm, no edema, no gallop, no JVD, no murmur , normal peripheral pulses Abdomen / GI: normal bowel sounds, non tender, soft, no organomegaly Extremities: normal inspection, no calf tenderness, normal capillary refill , no pedal edema, normal range of motion Neurologic/Psychiatric: 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 HTN emergency: uncertain etiology Renal US without obstruction, no Renal artery stenosis seen continue Coreg 37.5mg BID Norvasc 10mg daily, added this admission Losartan 25mg daily added this admission blood pressure improved, 150-160's systolic will continue the above regimen and monitor BP at [facility] Acute kidney injury on CKD stage III, actually progressed to CKD stage IV: etiology is diabetic nephropathy had a kidney biopsy at [facility] in 2018 that showed this diagnosis discontinue Bumex, euvolemic making adequate urine Cr ranged from 2.9 to 3.3 while here, likely her new baseline significant proteinuria found on urinalysis Dr. Mitchell recommends starting Losartan 25mg daily for proteinuria, renal protection consultation placed with vascular surgery to consider placement of fistula patient would like to wait and discuss with her family prior to proceeding patient should have a repeat BMP next week and follow up with physician at [facility] next week after labs are drawn she is instructed to tell physician if she decides to get fistula placed please contact Dr. Hemphill with [facility] Vascular surgery if patient wants fistula should follow up with Dr. Mitchell with [facility] group in 3-4 weeks DM: discontinue Glipizide due to worsening renal function sugars stable here on diabetic diet HbA1c 5.1 HIV: meds as prior Transgender status: estrogen as prior Other: Full code DM AHA diet Heparin for DVT proph Total Time Spent: Greater than 30 minutes This includes examination of the patient, discharge planning, medication reconciliation, and communication with other providers. Discharge Instructions Please refer to the electronic Patient Visit Report (Discharge Instructions) for additional information. Follow-Up Physician at [facility] next week, check BMP Additional Copies To [facility]
[2018-03-07] MEDS ORDERED: ESTRADIOL TRANSDERMAL SYSTEM 0.1 MG TDSY TD SCH (09:00)
== END 2018-03-04 16:49 | DRG 698 ==
LOC: C.EDB 11:07 → C.2E 14:58 → ENRESERV 15:08 → C.2T 03-02 00:15 → ENRESERV 03-02 17:29 → C.MS2W 03-02 18:14
PROVIDERS: ADMIT Family Medicine; ATTEND Internal Medicine
DX: E11.21 Type 2 diabetes mellitus with diabetic nephropathy (principal); B20 Human immunodeficiency virus [HIV] disease; E87.2 Acidosis; I16.1 Hypertensive emergency; N17.9 Acute kidney failure, unspecified; N18.4 Chronic kidney disease, stage 4 (severe); R51 Headache; R80.9 Proteinuria, unspecified; E11.22 Type 2 diabetes mellitus with diabetic chronic kidney disease; I10 Essential (primary) hypertension; N18.3 Chronic kidney disease, stage 3 (moderate); F64.0 Transsexualism; D64.9 Anemia, unspecified; N40.0 Benign prostatic hyperplasia without lower urinary tract symptoms; H40.9 Unspecified glaucoma; Z79.899 Other long term (current) drug therapy; Z91.81 History of falling; Z87.890 Personal history of sex reassignment; Z86.73 Personal history of transient ischemic attack (TIA), and cerebral infarction without residual deficits; Z86.74 Personal history of sudden cardiac arrest; Z95.0 Presence of cardiac pacemaker; Z88.0 Allergy status to penicillin; Z82.49 Family history of ischemic heart disease and other diseases of the circulatory system; Z83.3 Family history of diabetes mellitus; Z84.1 Family history of disorders of kidney and ureter

== ENCOUNTER → 2018-03-18 | Outpatient (CLI) | payer OTHER ==
[~2018-03-18] MED LIST changes: -AMLO10TA2 PO; -BUME1TAB42 PO; +CARV12.52 PO; +CARV25TA2 PO; +CLMTP1 TOP; -CRG125 PO; +CRS/10 PO; +CZR25 PO; +DEXT4CHW60 PO; -ESTR0.1D16 TOP; -GLIP10TA3 PO; -LATA0.009 OPB; +LATA0.5S OPB; -LPT40 PO; +MULT-477 PO; -MULT-506 PO; +NRV5 PO; -[UNRECOGNIZED DRUG - CODE] PO
[2018-03-18 13:33] LABS: BLOOD UREA NITROGEN 53 mg/dl (7-18); CALCIUM 8.2 mg/dl (8.5-10.1); CARBON DIOXIDE 18 mmol/L (21-32); CREATININE 3.55 mg/dl (0.60-1.40); GLUCOSE 105 mg/dl (70-99); SODIUM 137 mmol/L (136-145)
== END ==
LOC: C.LABSPEC 13:12
PROVIDERS: ATTEND Physician Assistant Medical
DX: N18.9 Chronic kidney disease, unspecified (principal)

== ENCOUNTER → 2018-03-21 | Outpatient (CLI) | payer OTHER ==
[2018-03-21 12:08] LABS: BLOOD UREA NITROGEN 55 mg/dl (7-18); CALCIUM 8.2 mg/dl (8.5-10.1); CARBON DIOXIDE 19 mmol/L (21-32); CREATININE 3.55 mg/dl (0.60-1.40); GLUCOSE 224 mg/dl (70-99); SODIUM 137 mmol/L (136-145)
== END | disposition home or self-care (01) ==
LOC: C.LABSPEC 11:20
PROVIDERS: ATTEND Physician Assistant Medical
DX: E87.5 Hyperkalemia (principal)

== ENCOUNTER → 2018-03-28 | Outpatient (CLI) | payer OTHER ==
[2018-03-28 16:51] LABS: BLOOD UREA NITROGEN 35 mg/dl (7-18); CARBON DIOXIDE 24 mmol/L (21-32); CREATININE 2.89 mg/dl (0.60-1.40); GLUCOSE 64 mg/dl (70-99); POTASSIUM 4.4 mmol/L (3.5-5.1); SODIUM 140 mmol/L (136-145)
== END ==
LOC: C.LABSPEC 15:52
DX: N18.9 Chronic kidney disease, unspecified (principal)

== ENCOUNTER 2018-10-12 16:27 | Inpatient (IN) ==
--- NOTE | 2018-10-12 17:14 | XRay Report ---
SINGLE VIEW CHEST CLINICAL HISTORY: Renal failure. Atypical chest pain. FINDINGS: An AP, portable, upright chest radiograph is compared to study dated 06/22/2018 and correla laquita with chest CT dated 07/20/2017. The examination is degraded by portable technique and patient rot ation. A 2-lead cardiac pacemaker is unchanged in position and partially obscures the left upper ches t. The heart is enlarged and there is atherosclerotic calcification of the thoracic aorta. There is p ulmonary vascular congestion with mild interstitial edema. There are layering pleural effusions with bibasilar consolidation. No pneumothorax is seen. The skeletal structures are osteopenic. The bony th orax is grossly intact. IMPRESSION: 1. Cardiomegaly and cardiac pacemaker. There is evidence of congestive failure and mild interstitial edema. 2. There are small pleural effusions with bibasilar consolidation. This likely represents atelectasis . Clinical correlation will be required. Electronically signed by: Tan Oseguera M.D. 10/12/2018 5:12 PM
[2018-10-12] MEDS ORDERED: HydrALAZINE HCL 20 MG/ML VIAL IV STA (17:41)
[2018-10-12] MEDS ORDERED: SODIUM CHLORIDE 0.9% 500 ML IV SCH (17:45)
[2018-10-12 17:54] LABS: Hematocrit (blood only) 26.4 % (42-52); Mean Corpuscular Hgb Conc 34.1 g/dL (32-36); Mean Corpuscular Volume 92.3 fL (80-100); Mean Platelet Volume 9.7 fL (7.4-10.4); Platelet Count 214 K/uL (130-400); RDW Coefficient of Variation 13.3 % (11.5-14.5); RDW Standard Deviation 44.8 fL (36.4-46.3); Red Blood Count 2.86 M/uL (4.7-6.1)
--- NOTE | 2018-10-12 18:19 | History & Physical Report ---
Date of Service October 12, 2018 Assessment & Plan (1) Acute kidney injury superimposed on CKD: - Admit to med surg with tele - Consult nephrology, possibly will need acute dialysis. Cr. has been trending up in the past week per report from the ER who spoke with [facility] who was in contact with a telemedicine bond analyst prior to sending to our hospital. - Cr. elevated at 7.49, K=4.6, follow am PRP. Check Mag with am labs. - Holding TATE and ARB, avoid other nephrotoxins (2) HTN (hypertension): - Elevated upon arrival at 197/90, , cover HTN with IV hydralazine at this time. Holding TATE and ARB as above. - Continue carvedilol (3) Diabetic nephropathy: (4) HIV disease: - Continue antivirals- will need these to be brought from [facility]: lamivudine, prezcobix, Tivicay, Vemlidy - CD4 = 217 (5) DM type 2 (diabetes mellitus, type 2): - A1C = 4.9 on 06/26/18, follow glucose with am labs - ISS with accuchecks, not on pharmacological treatment as outpatient (6) Vpkl-oc-qlrsar transgender person: - Continue estradiol patch, finasteride (7) SSS (sick sinus syndrome): (8) Pacemaker: - Continue carvedilol as above, stable. (9) Pleural effusion: - Note recent URI, CXR is clear with small bibasilar pleural effusion, a ppears to be chronic. breath sounds clear on RA, and O2 sats adequate. History of Present Illness Primary Care Provider: [facility] This is an incarcerated 62 yo transgendered M, who identifies as female, with PMHx of HIV, Hep B, CKD stage IV with acute worsening renal function, DM II, sick sinus syndrome s/p pacemaker insertion, who presents from [facility]. Pt notes she has had a cold in the past week due to worsening of a smoke/fume in the halfway. 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 Pt had a cough, nonproductive, but otherwise denies fever, chills and sweats. Diet and oral intake has remained at baseline, and denies any changes in bowel. Pt does admit to polyuria, light/clear urine recently. Denies any other acute symptoms. ER notes the patient was sent due to worsening of Cr on labs at [facility]. A telemedicine bond analyst was following the patient as outpatient. Cr. elevated at 7.49, K =4.6. Allergies Allergy/AdvReac Type Severity Reaction Status Date / Time abacavir Allergy Severe Unknown Verified 10/12/18 18:46 Penicillins Allergy Intermediate UNKNOWN Verified 10/12/18 18:46 Home Medications Home Medications Medication Instructions Recorded Confirmed Type Nephro-Ramirez Rx 1 tab PO DAILY 06/13/18 10/12/18 History Prezcobix 1 tab PO DAILY 06/13/18 10/12/18 History Tivicay 50 mg PO DAILY 06/13/18 10/12/18 History carvedilol 50 mg PO BID 06/13/18 10/12/18 History estradiol [Climara] 1 patch TOPICAL WK 06/13/18 10/12/18 History finasteride 5 mg PO DAILY 06/13/18 10/12/18 History glucose 1 tab PO QID PRN 06/13/18 10/12/18 History lamivudine [Epivir HBV] 100 mg PO DAILY 06/13/18 10/12/18 History latanoprost [Xalatan] 1 drp OPB HS 06/13/18 10/12/18 History rosuvastatin 10 mg PO DAILY 06/13/18 10/12/18 History sodium bicarbonate 650 mg PO BID 06/13/18 10/12/18 History benzonatate 100 mg PO BID PRN 10/12/18 10/12/18 History docusate sodium 250 mg PO BID PRN 10/12/18 10/12/18 History hydralazine 25 mg PO TID 10/12/18 10/12/18 History insulin regular human [Humulin R 1 sliding scale dose SUBCUT UD 10/12/18 10/12/18 History Regular U-100 Insuln] tenofovir disoproxil fumarate 300 mg PO 2XWK 10/12/18 10/12/18 History [Viread] torsemide 20 mg PO DAILY 10/12/18 10/12/18 History Past Med/Surg History Medical History Diverticulosis Cholelithiasis Hiatal hernia Glaucoma HIV (human immunodeficiency virus infection) (Chronic) CKD (chronic kidney disease), stage III (Chronic) HTN (hypertension) (Chronic) G-6-PD deficiency (Chronic) CVA (cerebral vascular accident) (Chronic) DM type 2 (diabetes mellitus, type 2) (Chronic) Vjox-pa-bfzjpo transgender person (Chronic) Pacemaker (Chronic) SBO (small bowel obstruction) (Acute) HTN (hypertension) (Chronic) CVA (cerebral vascular accident) (Resolved) Surgical History History of appendectomy (Resolved) Social History Preferred Language: Stateless Communication Ability: Effective Beliefs That Will Affect Care: None Current Living Situation: Other Current Living Situation Comment: halfway Other Information That Helps Us Care for You: No Feels Safe at Home: Yes Safety Concerns: Feels Safe At This Time Smoking Status: Never smoker Hx Alcohol Use: No Hx Substance Use: No Review of Systems Constitutional: no fever, no chills, no sweats and no fatigue As per HPI. Eyes: no diplopia and no worsening vision Ear, Nose, Mouth, Throat: no dizziness, no nasal discharge, no facial pain and no sore throat Respiratory: no cough, no dyspnea and no wheezing Cardiovascular: no chest pain, no palpitations, no lightheadedness and no syncope Gastrointestinal: no nausea, no vomiting and no constipation no diarrhea Genitourinary (Male): + urinary frequency; no dysuria, no urinary hesitancy and no hematuria Musculoskeletal: no back pain, no joint pain, no swelling and no muscle weakness Integumentary: no rash, no lesions and no wounds Neurologic: no gait abnormality, no falls, no numbness, no dizziness and no syncope Psychiatric: no depression and no anxiety Endocrine: no fatigue Physical Exam Vital Signs (Past 24 Hours): Last Vital Signs Temp 36.3 C L 10/12/18 16:32 Pulse 74 10/12/18 17:12 Resp 18 10/12/18 17:12 BP 197/90 H 10/12/18 17:12 Pulse Ox 98 10/12/18 17:12 Physical Exam: General: , awake, alert, no apparent distress, +thin Head: Normocephalic, atraumatic ENT: PERRL, EOMI, no pharyngeal exudate, mucous membranes moist Chest: Clear to ausculation, on room air, no adventitious breath sounds. Cardiac: Regular rate and rhythm, no murmur, no JVD, normal peripheral pulses, good capillary refill Abdominal: NABS x 4 quadrants, soft, nontender to palpation, no rebound, guarding or tenderness Extremities: Normal inspection, 1+ peripheral edema of feet and ankles, no erythema, calfs nontender to palpation Psych: Normal mood and affect Neuro: AAO x 3, no motor deficits, speech is clear Results & Data Diagnostic Findings SINGLE VIEW CHEST CLINICAL HISTORY: Renal failure. Atypical chest pain. FINDINGS: An AP, portable, upright chest radiograph is compared to study dated 06/22/2018 and correlated with chest CT dated 07/20/2017. The examination is degraded by portable technique and patient rotation. A 2-lead cardiac pacemaker is unchanged in position and partially obscures the left upper chest. The heart is enlarged and there is atherosclerotic calcification of the thoracic aorta. There is pulmonary vascular congestion with mild interstitial edema. There are layering pleural effusions with bibasilar consolidation. No pneumothorax is seen. The skeletal structures are osteopenic. The bony thorax is grossly intact. IMPRESSION: 1. Cardiomegaly and cardiac pacemaker. There is evidence of congestive failure and mild interstitial edema. 2. There are small pleural effusions with bibasilar consolidation. This likely represents atelectasis. Clinical correlation will be required. Code Status & VTE Plan Code Status FULL Supervising Physician Co-Signing Physician Notes Pt seen/examined with DAO Farr. Orders and plan of admission formulated with DAO. 62 y/o M - identifies as F Hx HIV, Hep B, CKD stage IV at baseline due to DM nephropathy, DM II, HTN, sick sinus syndrome - pacer, [facility] [place] [facility]. She had labs drawn at the facility due to URI symptoms. This revealed marked worsening of her renal function and she was sent to the ER therefore. She is admitted for evaluation for dialysis. She does not have speciic complaints at the time of admission. OE AAO x 3 S1,2 R CTAB NT, ND No CCE P: We will provide IVF overnight - she was on Bactrim which is cut off due to potential nephrotoxicity She will remain on her antiretrovirals including for HIV and chronic hep B Placed on a SS for DM Hydralazine and Clonidine added to her HTN meds - Clonidine should be safe with her B waqar as she has a pacer Reg her renal function, she was told she may be headed toward dialysis regardless. A renal consult is pending, IVF provided and we will check her function overnight - it would likely be time to consider a fistula regardless. (1) HTN (hypertension) Hypertension type: unspecified Qualified Code(s): I10 - Essential (primary) hypertension
[2018-10-12 18:29] LABS: Albumin Globulin Ratio 0.4 (0.9-2); Albumin Level 2.5 gm/dl (3.4-5.0); BUN Creatinine Ratio 10.7 (10-20); Bilirubin,Total 0.4 mg/dl (0.2-1); Calcium 7.2 mg/dl (8.5-10.1); Creatinine Clr Calc Pharmacy 8.4 ml/min; Est GFR (African American) 8.1; Globulin 5.9 gm/dl (2.5-4.0); Magnesium 2.1 mg/dl (1.8-2.4); Phosphorus 4.7 mg/dl (2.5-4.9); Potassium 4.7 mmol/L (3.5-5.1); Total Protein 8.4 gm/dl (6.4-8.2)
[2018-10-12] MEDS ORDERED: BENZONATATE 100 MG CAPSULE PO PRN ×2 (20:07)
[2018-10-12] MEDS ORDERED: INSULIN REGULAR PUMP SCH (20:07)
[2018-10-12] MEDS ORDERED: DEXTROSE 50% 50 ML SYRINGE IV PRN (20:45)
[2018-10-12] MEDS ORDERED: CARBOHYDRATES FOR HYPOGLYCEMIA PO PRN (20:45)
[2018-10-12] MEDS ORDERED: GLUCOSE 10 TABS/TUBE PO PRN (20:45)
[2018-10-12] MEDS ORDERED: GLUCOSE 40% GEL 15 GM TUBE PO PRN (20:45)
[2018-10-12] MEDS ORDERED: GLUCAGON FOR INJ 1 MG VIAL IM PRN (20:45)
[2018-10-12] MEDS: SODIUM CHLORIDE 0.9% 1000ML 1,000 ML IV SCH (20:45)
[2018-10-12 21:00] LABS: INR 1.1 (0.9-1.1); Prothrombin Time 10.9 Seconds (9.0-12.0)
[2018-10-12] MEDS ORDERED: cloNIDine HCl 0.1 MG TAB PO SCH (21:00)
[2018-10-12] MEDS: CARVEDILOL 12.5 MG TAB PO SCH (21:22)
[2018-10-12] MEDS: CARVEDILOL 25 MG TAB PO SCH (21:22)
[2018-10-12] MEDS: LATANOPROST 0.005% OP SOLN 2.5 ML BTL OP SCH (21:23)
[2018-10-12] MEDS: SODIUM BICARBONATE 650 MG TAB PO SCH (21:23)
[2018-10-12] MEDS: INSULIN ASPART 100 UNITS/ML 3 ML PEN SC SCH (21:24)
[2018-10-12 21:29] LABS: Appearance Urine Clear (Clear); Bacteria Urine Automated Negative (Negative); Bilirubin Urine Negative (Negative); Blood Urine Negative (Negative); Cast Urine Automated 0 /lpf (0-5); Color Urine Yellow; Epithelial Cell Urine Auto 20-30 /lpf (0-5); Glucose Urine UA 1+ (Negative); Ketones Urine Negative (Negative); Leukocyte Esterase Urine Negative (Negative); Nitrite Urine Negative (Negative); RBC Urine Automated 0-4 /hpf (0-4); Specific Gravity Urine 1.019 (1.000-1.030); Urobilinogen Urine Negative (Negative); pH Urine 7.5 (4.5-7.5)
[2018-10-12 21:30] LABS: Protein Urine 4+ (Negative)
[2018-10-12] MEDS: HEPARIN SOD 5,000 UNIT/0.5 ML VIAL SQ SCH (22:29)
[2018-10-13] MEDS: HydrALAZINE HCL 20 MG/ML VIAL IV PRN ×2 (00:50→13:33)
[2018-10-13] MEDS ORDERED: COUGH DROP (SUGAR FREE) LOZ 24 LOZ/1 BOX BUCCAL PRN (02:12)
[2018-10-13 06:42] LABS: Hematocrit (blood only) 23.8 % (42-52); Hemoglobin 7.9 g/dL (14.0-18.0); Mean Corpuscular Hgb Conc 33.2 g/dL (32-36); Mean Corpuscular Volume 91.9 fL (80-100); Platelet Count 195 K/uL (130-400); RDW Coefficient of Variation 13.5 % (11.5-14.5); RDW Standard Deviation 45.2 fL (36.4-46.3); Red Blood Count 2.59 M/uL (4.7-6.1)
[2018-10-13 07:32] LABS: Albumin Globulin Ratio 0.4 (0.9-2); Albumin Level 2.1 gm/dl (3.4-5.0); BUN Creatinine Ratio 10.5 (10-20); Bilirubin,Total 0.3 mg/dl (0.2-1); Calcium 6.9 mg/dl (8.5-10.1); Creatinine Clr Calc Pharmacy 8.3 ml/min; Est GFR (African American) 8.2; Est GFR (Non-African American) 7.1; Magnesium 1.9 mg/dl (1.8-2.4); Potassium 4.3 mmol/L (3.5-5.1); Total Protein 7.1 gm/dl (6.4-8.2)
[2018-10-13] MEDS: INSULIN ASPART 100 UNITS/ML 3 ML PEN SC SCH ×4 (08:28→21:29)
[2018-10-13] MEDS: FINASTERIDE 5 MG TAB PO SCH (08:30)
[2018-10-13] MEDS: SODIUM BICARBONATE 650 MG TAB PO SCH ×3 (08:30→20:49)
[2018-10-13] MEDS: ROSUVASTATIN CALCIUM 10 MG TAB PO SCH (08:31)
[2018-10-13] MEDS: DOCUSATE SODIUM 100 MG CAP PO SCH (08:31)
[2018-10-13] MEDS: CARVEDILOL 25 MG TAB PO SCH ×2 (08:32→20:48)
[2018-10-13] MEDS: NEPHROCAPS PO SCH (08:32)
[2018-10-13] MEDS: CARVEDILOL 12.5 MG TAB PO SCH ×2 (08:33→20:48)
[2018-10-13] MEDS: AMLODIPINE BESYLATE 5 MG TAB PO SCH (08:33)
[2018-10-13] MEDS: HEPARIN SOD 5,000 UNIT/0.5 ML VIAL SQ SCH ×2 (08:36→20:50)
[2018-10-13] MEDS: SODIUM CHLORIDE 0.9% 1000ML 1,000 ML IV SCH (08:47)
--- NOTE | 2018-10-13 09:32 | Family Medicine Progress Note ---
Date of Service October 13, 2018 Assessment & Plan (1) Acute kidney injury superimposed on CKD: 62-year-old transgendered male was transferred from [facility] on 12 October 2018 for worsening renal function. LEEROY on CKD stage IV: Per H&P, creatinine has been trending up for past week. Presently on normal saline IVF. By record, is on torsemide and bicarb TID at baseline as well. - Nephrology consulted. Pleural effusion: Admit pCXR noted small pleural effusions, likely atelectasis, and mild interstitial edema. Does have a mild cough but saturations are okay. We will see what nephrology says. If ends up getting dialysis, may help with some mild fluid overload. Anemia: Admit Hb 7.9. Baseline appears around 9s. No evidence of acute blood loss. Monitoring. Hypertension: As high as 197/90. Holding TATE-I and ARB due to LEEROY on CKD. On amlodipine, Coreg. Temporary additional coverage with hydralazine. Ongoing medical issues: - HIV: Is routinely on Lamivudine, prezcobix, tivicay, vemlidy - all held due to increased creatinine. CD4 was 217 (in Apr 2017). Likely need to get Rx from [facility]. --- Will ask nephrology if safe to give these meds at current Cr level. - Hepatitis B. - Hyperlipidemia: On rosuvastatin. - DM 2: Apparently not on routine meds. Here on insulin sliding scale. - Diabetic neuropathy. - Sick sinus syndrome s/p pacemaker: See HTN meds above. - Glaucoma: On latanoprost. - Male to female transgender: On estradiol patch (changed Mondays) and finasteride. - SBO: Underwent an ex lap and lysis of adhesions on [id number]. - G6PD, hiatal hernia, diverticulosis, CVA. Code status: Full code. Diet: Heart healthy, dialysis renal. DVT prophy: Heparin every 12 hours. PT/OT: Deferred. Disbo: Admit to PCU telemetry. Patient is a prisoner at [facility]. (2) Pleural effusion: (3) Anemia: (4) HTN (hypertension): (5) HIV (human immunodeficiency virus infection): (6) Hepatitis B: (7) Hyperlipidemia: (8) DM type 2 (diabetes mellitus, type 2): (9) Diabetic nephropathy: (10) SSS (sick sinus syndrome): (11) Pacemaker: (12) Glaucoma: (13) Gxsg-py-wktloa transgender person: (14) SBO (small bowel obstruction): (15) G-6-PD deficiency: (16) Hiatal hernia: (17) Diverticulosis: Supervising Physician Co-Signing Physician Notes I saw and examined the patient, and discussed the patient's plan with the resident with the following summary/exceptions: 62yo transgender F w/ hx of DM, HTN, HIV who presents with LEEROY on CKD. Today, she is in good spirits. No major complaints apart from mild cough. Concerned about her kidneys. 1) LEEROY on CKD - Baseline Cr ~3-4. On admission it is 7. Likely due to dehydration and Bactrim use. Holding Bactrim and getting IV fluids. 2) HTN - Will conitnue home meds. 3) HIV - No HIV meds in formulary. Will try to get them from [facility] as she can continue them despite her LEEROY. Subjective Plan patient resting comfortably in bed. She says that she thinks that happened because she did not take any of her medicines for about a week, preferring not to be in public while she was going through a self-described URI. She says her sinus symptoms and sore throat feel improved but she still has a bit of a cough. Denies any chest pain, shortness of breath, abdominal or flank pain, or other acute concerns. As background, she is unsure when the last time that her CD4 count was checked. Physical Exam Vital Signs (Past 24 Hours): Last Vital Signs Temp 37.1 C 10/13/18 07:05 Pulse 70 10/13/18 07:05 Resp 18 10/13/18 07:05 BP 189/81 H 10/13/18 07:05 Pulse Ox 97 10/13/18 07:05 Physical Exam: General Appearance: Awake, alert & oriented, comfortable in general, NAD. Thin appearing. CV: +S1S2 RRR, no murmur. Pulm: Mild rales at bases. Mild expiratory wheeze. Has an occasional congested cough. Abdomen: +BS, soft, non-tender, non-distended. Extremities: No pedal edema or calf tenderness. Moving all extremities naturally and easily. Left upper extremity AV fistula. Neuro: No gross neuro deficits. Results & Data Laboratory Results Laboratory Results WBC 4.70 K/uL (4.8-10.8) L 10/13/18 05:51 RBC 2.59 M/uL (4.7-6.1) L 10/13/18 05:51 Hgb 7.9 g/dL (14.0-18.0) L 10/13/18 05:51 Hct 23.8 % (42-52) L 10/13/18 05:51 MCV 91.9 fL (80-100) 10/13/18 05:51 MCH 30.5 pg (25-34) 10/13/18 05:51 MCHC 33.2 g/dL (32-36) 10/13/18 05:51 RDW Std Deviation 45.2 fL (36.4-46.3) 10/13/18 05:51 RDW Coeff of Anam 13.5 % (11.5-14.5) 10/13/18 05:51 Plt Count 195 K/uL (130-400) 10/13/18 05:51 MPV 10.0 fL (7.4-10.4) 10/13/18 05:51 PT 10.9 Seconds (9.0-12.0) 10/12/18 17:35 INR 1.1 (0.9-1.1) 10/12/18 17:35 Sodium 138 mmol/L (136-145) 10/13/18 05:51 Potassium 4.3 mmol/L (3.5-5.1) 10/13/18 05:51 Chloride 112 mmol/L (98-107) H 10/13/18 05:51 Carbon Dioxide 17 mmol/L (21-32) L 10/13/18 05:51 Anion Gap 9.0 (3-11) 10/13/18 05:51 BUN 77 mg/dl (7-18) H 10/13/18 05:51 Creatinine 7.35 mg/dl (0.6-1.4) H* 10/13/18 05:51 Est Cr Clr Drug Dosing 8.3 ml/min 10/13/18 05:51 Est GFR ( Amer) 8.2 10/13/18 05:51 Est GFR (Non-Af Amer) 7.1 10/13/18 05:51 BUN/Creatinine Ratio 10.5 (10-20) 10/13/18 05:51 Glucose 114 mg/dl (70-99) H 10/13/18 05:51 POC Glucose 125 (70-99) H 10/13/18 07:18 Calcium 6.9 mg/dl (8.5-10.1) L 10/13/18 05:51 Phosphorus 4.7 mg/dl (2.5-4.9) 10/12/18 17:35 Magnesium 1.9 mg/dl (1.8-2.4) 10/13/18 05:51 Total Bilirubin 0.3 mg/dl (0.2-1) 10/13/18 05:51 AST 21 U/L (15-37) 10/13/18 05:51 ALT 22 U/L (12-78) 10/13/18 05:51 Alkaline Phosphatase 75 U/L (45-117) 10/13/18 05:51 Total Protein 7.1 gm/dl (6.4-8.2) 10/13/18 05:51 Albumin 2.1 gm/dl (3.4-5.0) L 10/13/18 05:51 Globulin 5.0 gm/dl (2.5-4.0) H 10/13/18 05:51 Albumin/Globulin Ratio 0.4 (0.9-2) L 10/13/18 05:51 Urine Color Yellow 10/12/18 20:21 Urine Appearance Clear (Clear) 10/12/18 20:21 Urine pH 7.5 (4.5-7.5) 10/12/18 20:21 Ur Specific [place] 1.019 (1.000-1.030) 10/12/18 20:21 Urine Protein 4+ (Negative) H 10/12/18 20:21 Urine Glucose (UA) 1+ (Negative) H 10/12/18 20:21 Urine Ketones Negative (Negative) 10/12/18 20:21 Urine Blood Negative (Negative) 10/12/18 20:21 Urine Nitrite Negative (Negative) 10/12/18 20:21 Urine Bilirubin Negative (Negative) 10/12/18 20:21 Urine Urobilinogen Negative (Negative) 10/12/18 20:21 Ur Leukocyte Esterase Negative (Negative) 10/12/18 20:21 Urine WBC (Auto) 1-5 /hpf (0-5) 10/12/18 20:21 Urine RBC (Auto) 0-4 /hpf (0-4) 10/12/18 20:21 U Hyaline Cast (Auto) 0 /lpf (0-5) 10/12/18 20:21 U Epithel Cells (Auto) 20-30 /lpf (0-5) H 10/12/18 20:21 Urine Bacteria (Auto) Negative (Negative) 10/12/18 20:21 Nasal Screen MRSA (PCR) Negative (Negative) 10/12/18 21:08 Medications Administered Current Inpatient Medications Amlodipine Besylate (Norvasc) 10 mg PO DAILY DOROTHY Stop: 11/12/18 08:59 Last Admin: 10/13/18 08:33 Dose: 10 mg Documented by: Benzonatate (Tessalon Perle) 100 mg PO TID PRN PRN Reason: cough Stop: 11/11/18 20:06 Last Admin: 10/13/18 00:50 Dose: 100 mg Documented by: Carvedilol (Coreg) 12.5 mg PO BID DOROTHY Stop: 11/11/18 20:59 Last Admin: 10/13/18 08:33 Dose: 12.5 mg Documented by: Carvedilol (Coreg) 25 mg PO BID DOROTHY Stop: 11/11/18 20:59 Last Admin: 10/13/18 08:32 Dose: 25 mg Documented by: Dextrose (Dextrose 50%) 25 - 50 ml IV UD PRN; Protocol PRN Reason: Hypoglycemia Protocol Stop: 11/11/18 20:44 Docusate Sodium (Colace) 200 mg PO DAILY DOROTHY Stop: 11/12/18 08:59 Last Admin: 10/13/18 08:31 Dose: Not Given Documented by: Finasteride (Proscar) 5 mg PO DAILY DOROTHY Stop: 11/12/18 08:59 Last Admin: 10/13/18 08:30 Dose: 5 mg Documented by: Glucagon (Glucagen) 1 mg IM UD PRN; Protocol PRN Reason: Hypoglycemia Protocol Stop: 11/11/18 20:44 Glucose (Glucose 40%) 15 - 30 gm PO UD PRN; Protocol PRN Reason: Hypoglycemia Protocol Stop: 11/11/18 20:44 Glucose (Dex4 Glucose) 4 - 8 tabs PO UD PRN; Protocol PRN Reason: Hypoglycemia Protocol Stop: 11/11/18 20:44 Heparin Sodium (Porcine) (Heparin Sodium (Porcine)) 5,000 units SQ Q12 DOROTHY Stop: 11/11/18 21:59 Last Admin: 10/13/18 08:36 Dose: 5,000 units Documented by: Hydralazine HCl (Hydralazine Hcl) 5 mg IV Q8H PRN PRN Reason: SBP > 175 Stop: 11/11/18 20:06 Last Admin: 10/13/18 00:50 Dose: 5 mg Documented by: Hydralazine HCl (Apresoline) 25 mg PO TID DOROTHY Stop: 11/11/18 20:59 Last Admin: 10/13/18 08:34 Dose: 25 mg Documented by: Sodium Chloride (Nss 1000ml) 1,000 mls @ 80 mls/hr IV .[id number] [facility] Stop: 10/13/18 21:29 Last Admin: 10/13/18 08:47 Dose: 80 mls/hr Documented by: Insulin Aspart (Novolog Flexpen) 0 units SC ACHS DOROTHY Stop: 11/11/18 20:59 Last Admin: 10/13/18 08:28 Dose: Not Given Documented by: Latanoprost (Xalatan Oph) 1 drops OP HS DOROTHY Stop: 11/11/18 20:59 Last Admin: 10/12/18 21:23 Dose: 1 drops Documented by: Menthol (Nice) 1 jonathan BUCCAL PRN PRN PRN Reason: Cough Stop: 11/12/18 02:11 Miscellaneous (Order Awaiting Action) 1 ea N/A QS [facility] Stop: 11/12/18 00:00 Last Admin: 10/13/18 08:29 Dose: Not Given Documented by: Miscellaneous (Order Awaiting Action) 1 ea N/A QS [facility] Stop: 11/12/18 00:00 Last Admin: 10/13/18 08:29 Dose: Not Given Documented by: Miscellaneous (Order Awaiting Action) 1 ea N/A QS [facility] Stop: 11/12/18 00:00 Last Admin: 10/13/18 08:29 Dose: Not Given Documented by: Miscellaneous (Order Awaiting Action) 1 ea N/A QS [facility] Stop: 11/12/18 00:00 Last Admin: 10/13/18 08:29 Dose: Not Given Documented by: Miscellaneous (Carbohydrates For Hypoglycemia) 15 - 30 gm PO UD PRN PRN Reason: Hypoglycemia Treatment Stop: 11/11/18 20:44 Ondansetron HCl (Zofran) 4 mg IV Q4H PRN PRN Reason: Nausea And Vomiting Stop: 11/11/18 20:06 Rosuvastatin Calcium (Crestor) 10 mg PO DAILY [facility] Stop: 11/12/18 08:59 Last Admin: 10/13/18 08:31 Dose: 10 mg Documented by: Sodium Bicarbonate (Sodium Bicarbonate) 650 mg PO TID [facility] Stop: 11/11/18 20:59 Last Admin: 10/13/18 08:30 Dose: 650 mg Documented by: Vitamin B Complex/Folic Acid (Nephrocaps) 1 cap PO DAILY [facility] Stop: 11/12/18 08:59 Last Admin: 10/13/18 08:32 Dose: 1 cap Documented by: Resident Activity Tracking Resident Involvement: Resident Care Provided Care Provided: Adult Hospital Medicine (1) Anemia Anemia type: unspecified type Qualified Code(s): D64.9 - Anemia, unspecified (2) HTN (hypertension) Hypertension type: unspecified Qualified Code(s): I10 - Essential (primary) hypertension
--- NOTE | 2018-10-13 11:11 | Nephrology Consultation ---
Date of Consultation October 13, 2018 Assessment & Plan (1) Acute kidney injury: -- Patient appears clinically volume contracted. LEEROY is likely on the basis of dehydration and use of Bactrim. -- The antibiotic has been held and IVF is being provided. Suggest switching to electrolyte neutral IVF once current infusion complete. -- Document I/O's and monitor metabolic profile twice daily -- Medications appropriate for kidney function. -- No emergent indication for dialysis. -- UA: 4+ protein, no blood or WBCs -- (2) Chronic kidney disease: -- 11/24 Renal biopsy ([facility]) c/w diabetic nephropathy -- Baseline creatinine has been ~ 3.0: advanced CKD at baseline and Ms. Dash is aware that dialysis may be indicated in the near future -- AVF with good thrill and bruit and mature for use (3) HIV disease: -- No adjustment in medications is necessary at this time based on change in kidney function (4) HTN (hypertension): -- Home antihypertensive regimen restarted with monitoring -- Adjust hydralazine as needed -- Coreg at home dose 50 mg BID -- Held while patient receiving IVF (5) Anemia: -- No signs of active bleeding -- Chronic -- Check iron profile with next blood work -- Epo 4000 units provided today History of Present Illness Reason for Consultation: LEEROY/CKD Requesting Physician: Gibran Pardo MD Attending Physician: Gibran Pardo MD History of Present Illness Ms. Stacey Dash is a 62 year old transgender female who is seen at the request of Dr. Pardo for evaluation of LEEROY / CKD. Medical records in the EMR were reviewed today and are summarized as follows: Ms. Dash is HIV + on chronic antiretroviral therpy. She also has a history of chronic hepatitis B. Her medical history is significant for HIV, HTN, hyperlipidemia, SSS s/p pacemaker 04/25, T2DM, BPH and glaucoma. She has stage IV-V A3 CKD w/ baseline creatinine 3.0 - 3.5. Prior to her incarceration in 2013 Ms. Dash was evaluated by a Safety And Security Officer in [place], [place]. She was diagnosed w/ proteinuria and impaired kidney function. Patient declined renal biopsy at that time. She was managed conservatively. In 08/26 patient was hospitalized at [facility] w/ abdominal pain. She was diagnosed w/ a perforated appendix and several intraabdominal abscesses. She developed LEEROY / CKD but recovered following surgery and antibiotic therapy. Ms. Dash has had progressive proteinuria. Kidney biopsy 11/24 ([facility]) was c/w diabetic nephropathy. Ms. Dash was again hospitalized 02/23 w/ hypertensive urgency. Creatinine remained stable at ~ 3.0. Renal artery doppler was negative for CLARIBEL. Blood pressure was controlled following reinstitution of medical therapy. She was admitted to [facility] 06/26 with LEEROY and SBO. SBO was attributed to adhesions. At discharge, creatinine had improved to 3.0 mg/dL. Ms. Dash developed viral symptoms approximately 1 week ago. She began to refuse to take some of her medications. She was started on a course of Bactrim. Symptoms have been improving. Unfortunately, routine laboratory studies demonstrated significant worsening of kidney function. They patient was admitted for additional evaluation. She was [facility] by [facility]er [facility] that she may need dialysis. Ms. 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 Allergies Allergy/AdvReac Type Severity Reaction Status Date / Time abacavir Allergy Severe Unknown Verified 10/12/18 18:46 Penicillins Allergy Intermediate UNKNOWN Verified 10/12/18 18:46 Home Medications Home Medications Medication Instructions Recorded Confirmed Type Nephro-Ramirez Rx 1 tab PO DAILY 06/13/18 10/12/18 History Prezcobix 1 tab PO DAILY 06/13/18 10/12/18 History Tivicay 50 mg PO DAILY 06/13/18 10/12/18 History carvedilol 50 mg PO BID 06/13/18 10/12/18 History estradiol [Climara] 1 patch TOPICAL WK 06/13/18 10/12/18 History finasteride 5 mg PO DAILY 06/13/18 10/12/18 History glucose 1 tab PO QID PRN 06/13/18 10/12/18 History lamivudine [Epivir HBV] 100 mg PO DAILY 06/13/18 10/12/18 History latanoprost [Xalatan] 1 drp OPB HS 06/13/18 10/12/18 History rosuvastatin 10 mg PO DAILY 06/13/18 10/12/18 History sodium bicarbonate 650 mg PO BID 06/13/18 10/12/18 History benzonatate 100 mg PO BID PRN 10/12/18 10/12/18 History docusate sodium 250 mg PO BID PRN 10/12/18 10/12/18 History hydralazine 25 mg PO TID 10/12/18 10/12/18 History insulin regular human [Humulin R 1 sliding scale dose SUBCUT UD 10/12/18 10/12/18 History Regular U-100 Insuln] tenofovir disoproxil fumarate 300 mg PO 2XWK 10/12/18 10/12/18 History [Viread] torsemide 20 mg PO DAILY 10/12/18 10/12/18 History Patient History Medical History Diabetic nephropathy HTN (hypertension) (Acute) Anemia (Acute) HIV disease Pericardial effusion Diverticulosis Cholelithiasis Hiatal hernia Glaucoma HIV (human immunodeficiency virus infection) (Chronic) CKD (chronic kidney disease), stage III (Chronic) HTN (hypertension) (Chronic) G-6-PD deficiency (Chronic) CVA (cerebral vascular accident) (Chronic) DM type 2 (diabetes mellitus, type 2) (Chronic) [id number]-fqbiqf transgender person (Chronic) Pacemaker (Chronic) SBO (small bowel obstruction) (Acute) AVF (arteriovenous fistula) HTN (hypertension) (Chronic) CVA (cerebral vascular accident) (Resolved) Surgical History History of appendectomy (Resolved) Family History Mother No problems noted. Other No pertinent family history Social History Preferred Language: [place] Citizen Communication Ability: Effective Beliefs That Will Affect Care: None Current Living Situation: Other Current Living Situation Comment: [facility] Other Information That Helps Us Care for You: No Feels Safe at Home: Yes Safety Concerns: Feels Safe At This Time Smoking Status: Never smoker Hx Alcohol Use: No Hx Substance Use: No Review of Systems Constitutional: no fever, no chills, no body aches, no fatigue, no weakness, no anorexia and no weight loss Eyes: no problem reported Ear, Nose, Mouth, Throat: no problem reported Respiratory: no problem reported Cardiovascular: no chest pain, no dyspnea on exertion, no palpitations and no edema Gastrointestinal: no abdominal pain, no nausea and no problem reported Genitourinary (Male): no dysuria, no urinary hesitancy, no flank pain and no urinary urgency Musculoskeletal: no problem reported Integumentary: no problem reported Neurologic: no tremor(s) and no problem reported Psychiatric: no problem reported Hematologic / Lymphatic: no easy bleeding and no easy bruising Physical Exam Vital Signs (Past 24 Hours): Last Vital Signs Temp 37.1 C 10/13/18 07:05 Pulse 70 10/13/18 07:05 Resp 18 10/13/18 07:05 BP 189/81 H 10/13/18 07:05 Pulse Ox 97 10/13/18 07:05 Constitutional: well developed and + thin; no acute distress and not ill appearing Eyes: no scleral abnormality and no corneal abnormality ENMT: Mouth: no oral mucosal abnormality and oral mucous membranes not dry Neck: normal visual inspection Thyroid: normal thyroid Respiratory: no respiratory distress Auscultation: lungs clear to auscultation bilaterally Cardiovascular: Rate/Rhythm: regular rate Heart Sounds: normal S1 and normal S2; no gallop and no cardiac rub Gastrointestinal (Abdomen): Percussion/Palpation: abdomen soft; abdomen nontender Musculoskeletal: Extremities: no cyanosis and no clubbing Skin: normal turgor; no rashes Neurologic: Motor/Sensory: no tremor and no asterixis Psychiatric: Eye Contact: good eye contact Affect: euthymic affect Results & Data Laboratory Results Laboratory Results - last 24 hr 10/12/18 10/12/18 10/12/18 17:35 17:35 17:35 WBC 4.70 L RBC 2.86 L Hgb 9.0 L Hct 26.4 L MCV 92.3 MCH 31.5 MCHC 34.1 RDW Std Deviation 44.8 RDW Coeff of Anam 13.3 Plt Count 214 MPV 9.7 PT 10.9 INR 1.1 Sodium 137 Potassium 4.7 Chloride 111 H Carbon Dioxide 19 L Anion Gap 7.0 BUN 78 H Creatinine 7.42 H* Est Cr Clr Drug Dosing 8.4 Est GFR ( Amer) 8.1 Est GFR (Non-Af Amer) 7.0 BUN/Creatinine Ratio 10.7 Glucose 103 H POC Glucose Calcium 7.2 L Phosphorus 4.7 Magnesium 2.1 Total Bilirubin 0.4 AST 26 ALT 26 Alkaline Phosphatase 87 Total Protein 8.4 H Albumin 2.5 L Globulin 5.9 H Albumin/Globulin Ratio 0.4 L Urine Color Urine Appearance Urine pH Ur Specific [place] Urine Protein Urine Glucose (UA) Urine Ketones Urine Blood Urine Nitrite Urine Bilirubin Urine Urobilinogen Ur Leukocyte Esterase Urine WBC (Auto) Urine RBC (Auto) U Hyaline Cast (Auto) U Epithel Cells (Auto) Urine Bacteria (Auto) Nasal Screen MRSA (PCR) 10/12/18 10/12/18 10/12/18 20:21 20:45 21:08 WBC RBC Hgb Hct MCV MCH MCHC RDW Std Deviation RDW Coeff of Anam Plt Count MPV PT INR Sodium Potassium Chloride Carbon Dioxide Anion Gap BUN Creatinine Est Cr Clr Drug Dosing Est GFR ( Amer) Est GFR (Non-Af Amer) BUN/Creatinine Ratio Glucose POC Glucose 141 H Calcium Phosphorus Magnesium Total Bilirubin AST ALT Alkaline Phosphatase Total Protein Albumin Globulin Albumin/Globulin Ratio Urine Color Yellow Urine Appearance Clear Urine pH 7.5 Ur Specific [place] 1.019 Urine Protein 4+ H Urine Glucose (UA) 1+ H Urine Ketones Negative Urine Blood Negative Urine Nitrite Negative Urine Bilirubin Negative Urine Urobilinogen Negative Ur Leukocyte Esterase Negative Urine WBC (Auto) 1-5 Urine RBC (Auto) 0-4 U Hyaline Cast (Auto) 0 U Epithel Cells (Auto) 20-30 H Urine Bacteria (Auto) Negative Nasal Screen MRSA (PCR) Negative 10/13/18 10/13/18 10/13/18 05:51 05:51 07:18 WBC 4.70 L RBC 2.59 L Hgb 7.9 L Hct 23.8 L MCV 91.9 MCH 30.5 MCHC 33.2 RDW Std Deviation 45.2 RDW Coeff of Anam 13.5 Plt Count 195 MPV 10.0 PT INR Sodium 138 Potassium 4.3 Chloride 112 H Carbon Dioxide 17 L Anion Gap 9.0 BUN 77 H Creatinine 7.35 H* Est Cr Clr Drug Dosing 8.3 Est GFR ( Amer) 8.2 Est GFR (Non-Af Amer) 7.1 BUN/Creatinine Ratio 10.5 Glucose 114 H POC Glucose 125 H Calcium 6.9 L Phosphorus Magnesium 1.9 Total Bilirubin 0.3 AST 21 ALT 22 Alkaline Phosphatase 75 Total Protein 7.1 Albumin 2.1 L Globulin 5.0 H Albumin/Globulin Ratio 0.4 L Urine Color Urine Appearance Urine pH Ur Specific [place] Urine Protein Urine Glucose (UA) Urine Ketones Urine Blood Urine Nitrite Urine Bilirubin Urine Urobilinogen Ur Leukocyte Esterase Urine WBC (Auto) Urine RBC (Auto) U Hyaline Cast (Auto) U Epithel Cells (Auto) Urine Bacteria (Auto) Nasal Screen MRSA (PCR) Diagnostic Findings CX: mild interstitial edema (1) Chronic kidney disease Chronic kidney disease stage: unspecified stage Qualified Code(s): N18.9 - Chronic kidney disease, unspecified
[2018-10-13 11:39] LABS: Hepatitis B Surface Antibody Non-Immune
[2018-10-13 11:50] LABS: Hepatitis B Surface Antigen Neg (Neg)
--- NOTE | 2018-10-13 12:07 | Emergency Department Note ---
Entered by Jenny Shah acting as a scribe for History of Present Illness General Chief complaint: Abnormal Labs/Diagnostic Testing Stated complaint: ABD LABS Time Seen by Provider: 10/12/18 16:44 Source: patient Mode of arrival: ambulatory Limitations: no limitations History of Present Illness Onset (ago): day(s) Location: back and abdomen Pain Consistency: + other (episode) Quality: + other (abnormal lab tests) Associated symptoms: no weakness and no other (The patient denies any symptoms, urinary symptoms, fatigue, leg swelling, and dizziness. ) The patient is a 62 year old female with a history of diabetes, a pacemaker, and hypertension who presents to the ED with complaints of an episode of abnormal labs that he received today. He notes that he gets lab work done every other week for his kidney function. The patient states that his sugars have been normal recently. He states that his mother and aunt are on dialysis. The patient denies any symptoms, urinary symptoms, fatigue, weakness, leg swelling, and dizziness. Home Medications Home Medications Medication Instructions Recorded Confirmed Type Nephro-Ramirez Rx 1 tab PO DAILY 06/13/18 10/12/18 History Prezcobix 1 tab PO DAILY 06/13/18 10/12/18 History Tivicay 50 mg PO DAILY 06/13/18 10/12/18 History carvedilol 50 mg PO BID 06/13/18 10/12/18 History estradiol [Climara] 1 patch TOPICAL WK 06/13/18 10/12/18 History finasteride 5 mg PO DAILY 06/13/18 10/12/18 History glucose 1 tab PO QID PRN 06/13/18 10/12/18 History lamivudine [Epivir HBV] 100 mg PO DAILY 06/13/18 10/12/18 History latanoprost [Xalatan] 1 drp OPB HS 06/13/18 10/12/18 History rosuvastatin 10 mg PO DAILY 06/13/18 10/12/18 History sodium bicarbonate 650 mg PO BID 06/13/18 10/12/18 History benzonatate 100 mg PO BID PRN 10/12/18 10/12/18 History docusate sodium 250 mg PO BID PRN 10/12/18 10/12/18 History hydralazine 25 mg PO TID 10/12/18 10/12/18 History insulin regular human [Humulin R 1 sliding scale dose SUBCUT UD 10/12/18 10/12/18 History Regular U-100 Insuln] tenofovir disoproxil fumarate 300 mg PO 2XWK 10/12/18 10/12/18 History [Viread] torsemide 20 mg PO DAILY 10/12/18 10/12/18 History Allergies Allergy/AdvReac Type Severity Reaction Status Date / Time abacavir Allergy Severe Unknown Verified 10/12/18 18:46 Penicillins Allergy Intermediate UNKNOWN Verified 10/12/18 18:46 Past Med/Surg History Medical History Diabetic nephropathy HTN (hypertension) (Acute) Anemia (Acute) HIV disease Pericardial effusion Diverticulosis Cholelithiasis Hiatal hernia Glaucoma HIV (human immunodeficiency virus infection) (Chronic) CKD (chronic kidney disease), stage III (Chronic) HTN (hypertension) (Chronic) G-6-PD deficiency (Chronic) CVA (cerebral vascular accident) (Chronic) DM type 2 (diabetes mellitus, type 2) (Chronic) Oyls-yx-sgfhia transgender person (Chronic) Pacemaker (Chronic) SBO (small bowel obstruction) (Acute) AVF (arteriovenous fistula) HTN (hypertension) (Chronic) CVA (cerebral vascular accident) (Resolved) Surgical History History of appendectomy (Resolved) Family History Mother No problems noted. Other No pertinent family history Social History Preferred Language: [place] Communication Ability: Effective Beliefs That Will Affect Care: None Current Living Situation: Other Current Living Situation Comment: [facility] Other Information That Helps Us Care for You: No Feels Safe at Home: Yes Safety Concerns: Feels Safe At This Time Smoking Status: Never smoker Hx Alcohol Use: No Hx Substance Use: No Review of Systems See HPI for pertinent positives & negatives. and A total of 10 systems reviewed and were otherwise negative Physical Exam Vital Signs Vital Signs - 24 hr 10/12/18 16:32 10/12/18 17:12 10/12/18 19:23 Temperature 36.3 C L Temperature Source Oral Sepsis Recent Fever Within 48 Hours No Sepsis Action Taken by Nursing No Action Required Pulse Rate 92 H Pulse Rate [Left] 74 69 Pulse Rhythm [Left] Pulse Strength [Left] Respiratory Rate 20 18 20 Respiratory Effort / Characteristics Non-Labored Spontaneous Non-Labored Spontaneous Respiratory Depth Normal Normal Respiratory Pattern Regular Regular Blood Pressure 210/97 H Blood Pressure [Right Arm] 197/90 H 192/100 H Blood Pressure Mean 134 Blood Pressure Mean [Right Arm] 125 130 Blood Pressure Position [Right Arm] Lying Pulse Oximetry 98 98 97 Oxygen Delivery Method Room Air Room Air Room Air Oxygen Delivery Method [Right Index Finger] 10/12/18 19:43 10/12/18 19:55 10/12/18 20:07 Temperature 36.9 C Temperature Source Oral Sepsis Recent Fever Within 48 Hours Sepsis Action Taken by Nursing Pulse Rate 68 Pulse Rate [Left] 71 Pulse Rhythm [Left] Pulse Strength [Left] Normal Respiratory Rate 18 20 Respiratory Effort / Characteristics Non-Labored Spontaneous Respiratory Depth Normal Respiratory Pattern Regular Blood Pressure 197/92 H Blood Pressure [Right Arm] 207/93 H Blood Pressure Mean Blood Pressure Mean [Right Arm] 131 Blood Pressure Position [Right Arm] Lying Pulse Oximetry 98 96 Oxygen Delivery Method Room Air Oxygen Delivery Method [Right Index Finger] Room Air 10/12/18 20:40 10/12/18 22:30 10/12/18 23:09 Temperature 36.8 C Temperature Source Oral Sepsis Recent Fever Within 48 Hours Sepsis Action Taken by Nursing Pulse Rate 75 Pulse Rate [Left] 69 Pulse Rhythm [Left] Regular Pulse Strength [Left] Normal Respiratory Rate 17 Respiratory Effort / Characteristics Non-Labored Respiratory Depth Normal Respiratory Pattern Blood Pressure Blood Pressure [Right Arm] 189/82 H Blood Pressure Mean Blood Pressure Mean [Right Arm] 117 Blood Pressure Position [Right Arm] Lying Pulse Oximetry 96 Oxygen Delivery Method Room Air Room Air Oxygen Delivery Method [Right Index Finger] 10/13/18 00:51 10/13/18 02:15 10/13/18 07:05 Temperature 36.9 C 37.1 C Temperature Source Oral Oral Sepsis Recent Fever Within 48 Hours Sepsis Action Taken by Nursing Pulse Rate Pulse Rate [Left] 70 70 Pulse Rhythm [Left] Pulse Strength [Left] Respiratory Rate 18 18 Respiratory Effort / Characteristics Respiratory Depth Respiratory Pattern Blood Pressure Blood Pressure [Right Arm] 180/80 H 174/77 H 189/81 H Blood Pressure Mean Blood Pressure Mean [Right Arm] 113 109 117 Blood Pressure Position [Right Arm] Lying Pulse Oximetry 97 97 Oxygen Delivery Method Room Air Room Air Oxygen Delivery Method [Right Index Finger] 10/13/18 11:16 Temperature 37 C Temperature Source Oral Sepsis Recent Fever Within 48 Hours Sepsis Action Taken by Nursing Pulse Rate Pulse Rate [Left] 72 Pulse Rhythm [Left] Pulse Strength [Left] Respiratory Rate 18 Respiratory Effort / Characteristics Respiratory Depth Respiratory Pattern Blood Pressure Blood Pressure [Right Arm] 183/81 H Blood Pressure Mean Blood Pressure Mean [Right Arm] 115 Blood Pressure Position [Right Arm] Lying Pulse Oximetry 97 Oxygen Delivery Method Room Air Oxygen Delivery Method [Right Index Finger] GENERAL: alert, well appearing, well nourished, no distress, non-toxic EYE EXAM: normal conjunctiva, PERRL and EOM's grossly intact OROPHARYNX: no exudate, no erythema, lips, buccal mucosa, and tongue normal and mucous membranes are moist NECK: supple, no nuchal rigidity, no adenopathy, non-tender LUNGS: Clear to auscultation. Normal chest wall mechanics. No wheezing, rhonchi, rales. HEART: no murmurs, S1 normal and S2 normal ABDOMEN: abdomen soft, non-tender, normo-active bowel sounds, no masses, no rebound or guarding. BACK: Back is symmetrical on inspection and there is no deformity, no midline tenderness, no CVA tenderness. SKIN: no rashes and no bruising UPPER EXTREMITIES: Fistula noted left forearm, positive thrill, positive bruit. Nml distal pulses b/l. LOWER EXTREMITIES: 2-3+ edema b/l, nml pulses b/l. NEURO EXAM: Normal sensorium, cranial nerves II-XII [grossly] intact, normal speech, no [gross] weakness of arms, no [gross] weakness of legs. [No drift. Finger to nose intact. Gross sensation intact.] Course 164: Past medical records reviewed. The patient was evaluated in room C7, and a complete history and physical examination were performed. 1736: I reviewed the patient's case with Emmett DC from [facility]. He states that he knows the patient well can be reached at [phone] for additional questions. The patient has been seeing Dr. Soto as a daron-warehouse operations manager. He states that her kidney disease started from her diabetes and hypertension. States often that her increased renal function is due to noncompliance and dehydration. States they do not currently have any room in their [facility] to keep her and try and treat her there and are concerned that with her worsening renal function her potassium would become more elevated requiring more emergent dialysis. 1748: I updated the patient. Upon reevaluation, the patient is resting comfortably. 1808: I reviewed the patient's case with Dr. Rickie Davison - [facility]. He will evaluate the patient for further management. Consultations Consultation #1: [id number]: I reviewed the patient's case with Emmett DC from [facility]. He states that he knows the patient well can be reached at [phone] for additional questions. The patient has been seeing Dr. Soto as a daron-warehouse operations manager. He states that her kidney disease started from her diabetes and hypertension. Time: 17:37 Consultation #2: [id number]: I reviewed the patient's case with Dr. Rickie Davison - [facility]. He will evaluate the patient for further management. Time: 18:08 Administered Medications Amlodipine Besylate (Norvasc) 10 mg PO DAILY DOROTHY Stop: 11/12/18 08:59 Last Admin: 10/13/18 08:33 Dose: 10 mg Documented by: [id number] Benzonatate (Tessalon Perle) 100 mg PO TID PRN PRN Reason: cough Stop: 11/11/18 20:06 Last Admin: 10/13/18 00:50 Dose: 100 mg Documented by: [id number] Carvedilol (Coreg) 12.5 mg PO BID DOROTHY Stop: 11/11/18 20:59 Last Admin: 10/13/18 08:33 Dose: 12.5 mg Documented by: [id number] Admin: 10/12/18 21:22 Dose: 12.5 mg Documented by: [id number] Carvedilol (Coreg) 25 mg PO BID DOROTHY Stop: 11/11/18 20:59 Last Admin: 10/13/18 08:32 Dose: 25 mg Documented by: [id number] Admin: 10/12/18 21:22 Dose: 25 mg Documented by: [id number] Docusate Sodium (Colace) 200 mg PO DAILY DOROTHY Stop: 11/12/18 08:59 Last Admin: 10/13/18 08:31 Dose: Not Given Documented by: [id number] Finasteride (Proscar) 5 mg PO DAILY DOROTHY Stop: 11/12/18 08:59 Last Admin: 10/13/18 08:30 Dose: 5 mg Documented by: [id number] Heparin Sodium (Porcine) (Heparin Sodium (Porcine)) 5,000 units SQ Q12 DOROTHY Stop: 11/11/18 21:59 Last Admin: 10/13/18 08:36 Dose: 5,000 units Documented by: [id number] Cosigned by: [id number] Admin: 10/12/18 22:29 Dose: Not Given Documented by: [id number] Hydralazine HCl (Hydralazine Hcl) 5 mg IV Q8H PRN PRN Reason: SBP > 175 Stop: 11/11/18 20:06 Last Admin: 10/13/18 00:50 Dose: 5 mg Documented by: [id number] Hydralazine HCl (Apresoline) 25 mg PO TID [facility] Stop: 11/11/18 20:59 Last Admin: 10/13/18 08:34 Dose: 25 mg Documented by: [id number] Admin: 10/12/18 21:22 Dose: 25 mg Documented by: [id number] Sodium Chloride (Nss 1000ml) 1,000 mls @ 80 mls/hr IV .[id number] [facility] Stop: 10/13/18 21:29 Last Admin: 10/13/18 08:47 Dose: 80 mls/hr Documented by: [id number] Infusion: 10/13/18 08:47 Dose: 80 mls/hr Documented by: [id number] Admin: 10/12/18 20:45 Dose: 80 mls/hr Documented by: [id number] Insulin Aspart (Novolog Flexpen) 0 units SC ACHS [facility] Stop: 11/11/18 20:59 Last Admin: 10/13/18 08:28 Dose: Not Given Documented by: [id number] Cosigned by: [id number] Admin: 10/12/18 21:24 Dose: Not Given Documented by: [id number] Cosigned by: [id number] Latanoprost (Xalatan Oph) 1 drops OP HS [facility] Stop: 11/11/18 20:59 Last Admin: 10/12/18 21:23 Dose: 1 drops Documented by: [id number] Miscellaneous (Order Awaiting Action) 1 ea N/A QS [facility] Stop: 11/12/18 00:00 Last Admin: 10/13/18 08:29 Dose: Not Given Documented by: [id number] Admin: 10/13/18 00:11 Dose: Not Given Documented by: [id number] Miscellaneous (Order Awaiting Action) 1 ea N/A QS DOROTHY Stop: 11/12/18 00:00 Last Admin: 10/13/18 08:29 Dose: Not Given Documented by: [id number] Admin: 10/13/18 00:11 Dose: Not Given Documented by: [id number] Miscellaneous (Order Awaiting Action) 1 ea N/A QS DOROTHY Stop: 11/12/18 00:00 Last Admin: 10/13/18 08:29 Dose: Not Given Documented by: [id number] Admin: 10/13/18 00:12 Dose: Not Given Documented by: [id number] Miscellaneous (Order Awaiting Action) 1 ea N/A QS DOROTHY Stop: 11/12/18 00:00 Last Admin: 10/13/18 08:29 Dose: Not Given Documented by: [id number] Admin: 10/13/18 00:11 Dose: Not Given Documented by: [id number] Rosuvastatin Calcium (Crestor) 10 mg PO DAILY DOROTHY Stop: 11/12/18 08:59 Last Admin: 10/13/18 08:31 Dose: 10 mg Documented by: [id number] Sodium Bicarbonate (Sodium Bicarbonate) 650 mg PO TID DOROTHY Stop: 11/11/18 20:59 Last Admin: 10/13/18 08:30 Dose: 650 mg Documented by: [id number] Admin: 10/12/18 21:23 Dose: 650 mg Documented by: [id number] Vitamin B Complex/Folic Acid (Nephrocaps) 1 cap PO DAILY DOROTHY Stop: 11/12/18 08:59 Last Admin: 10/13/18 08:32 Dose: 1 cap Documented by: [id number] Discontinued Medications Hydralazine HCl (Hydralazine Hcl) 10 mg IV NOW STA Stop: 10/12/18 17:42 Last Admin: 10/12/18 19:21 Dose: 10 mg Documented by: [id number] Sodium Chloride (Nss) 500 mls @ 80 mls/hr IV .[id number] DOROTHY Stop: 11/11/18 17:44 Last Infusion: 10/12/18 19:55 Dose: 0 mls/hr Documented by: [id number] Admin: 10/12/18 19:21 Dose: 80 mls/hr Documented by: [id number] Medical Decision Making Differential Diagnosis Differential Diagnosis includes but is not limited to dehydration, stroke, anemia, hypoglycemia, hyponatremia, hypernatremia, urinary tract infection, pneumonia, bronchitis, sepsis, gastroenteritis, additional abdominal pathology, metabolic abnormalities and infections. Medical Records Attestation: I reviewed the patient's medical records. Home Medications Current Medication List: was personally reviewed by me Laboratory Data Attestation: I reviewed the patient's lab results. Result diagrams: 10/13/18 05:51 10/13/18 05:51 Lab Results 10/12/18 10/12/18 10/12/18 Range/Units 17:35 17:35 17:35 WBC 4.70 L (4.8-10.8) K/uL RBC 2.86 L (4.7-6.1) M/uL Hgb 9.0 L (14.0-18.0) g/dL Hct 26.4 L (42-52) % MCV 92.3 (80-100) fL MCH 31.5 (25-34) pg MCHC 34.1 (32-36) g/dL RDW Std Deviation 44.8 (36.4-46.3) fL RDW Coeff of Anam 13.3 (11.5-14.5) % Plt Count 214 (130-400) K/uL MPV 9.7 (7.4-10.4) fL PT 10.9 (9.0-12.0) Seconds INR 1.1 (0.9-1.1) Sodium 137 (136-145) mmol/L Potassium 4.7 (3.5-5.1) mmol/L Chloride 111 H (98-107) mmol/L Carbon Dioxide 19 L (21-32) mmol/L Anion Gap 7.0 (3-11) BUN 78 H (7-18) mg/dl Creatinine 7.42 H* (0.6-1.4) mg/dl Est Cr Clr Drug Dosing 8.4 ml/min Est GFR ( Amer) 8.1 Est GFR (Non-Af Amer) 7.0 BUN/Creatinine Ratio 10.7 (10-20) Glucose 103 H (70-99) mg/dl POC Glucose (70-99) Calcium 7.2 L (8.5-10.1) mg/dl Phosphorus 4.7 (2.5-4.9) mg/dl Magnesium 2.1 (1.8-2.4) mg/dl Total Bilirubin 0.4 (0.2-1) mg/dl AST 26 (15-37) U/L ALT 26 (12-78) U/L Alkaline Phosphatase 87 (45-117) U/L Total Protein 8.4 H (6.4-8.2) gm/dl Albumin 2.5 L (3.4-5.0) gm/dl Globulin 5.9 H (2.5-4.0) gm/dl Albumin/Globulin Ratio 0.4 L (0.9-2) Urine Color Urine Appearance (Clear) Urine pH (4.5-7.5) Ur Specific [place] (1.000-1.030) Urine Protein (Negative) Urine Glucose (UA) (Negative) Urine Ketones (Negative) Urine Blood (Negative) Urine Nitrite (Negative) Urine Bilirubin (Negative) Urine Urobilinogen (Negative) Ur Leukocyte Esterase (Negative) Urine WBC (Auto) (0-5) /hpf Urine RBC (Auto) (0-4) /hpf U Hyaline Cast (Auto) (0-5) /lpf U Epithel Cells (Auto) (0-5) /lpf Urine Bacteria (Auto) (Negative) Nasal Screen MRSA (PCR) (Negative) Hep Bs Antigen (Neg) Hep Bs Antibody Hep Bs Antibody, Quant (>or=10mIU/mL Immune) mIU/mL 10/12/18 10/12/18 10/12/18 Range/Units 20:21 20:45 21:08 WBC (4.8-10.8) K/uL RBC (4.7-6.1) M/uL Hgb (14.0-18.0) g/dL Hct (42-52) % MCV (80-100) fL MCH (25-34) pg MCHC (32-36) g/dL RDW Std Deviation (36.4-46.3) fL RDW Coeff of Anam (11.5-14.5) % Plt Count (130-400) K/uL MPV (7.4-10.4) fL PT (9.0-12.0) Seconds INR (0.9-1.1) Sodium (136-145) mmol/L Potassium (3.5-5.1) mmol/L Chloride (98-107) mmol/L Carbon Dioxide (21-32) mmol/L Anion Gap (3-11) BUN (7-18) mg/dl Creatinine (0.6-1.4) mg/dl Est Cr Clr Drug Dosing ml/min Est GFR ( Amer) Est GFR (Non-Af Amer) BUN/Creatinine Ratio (10-20) Glucose (70-99) mg/dl POC Glucose 141 H (70-99) Calcium (8.5-10.1) mg/dl Phosphorus (2.5-4.9) mg/dl Magnesium (1.8-2.4) mg/dl Total Bilirubin (0.2-1) mg/dl AST (15-37) U/L ALT (12-78) U/L Alkaline Phosphatase (45-117) U/L Total Protein (6.4-8.2) gm/dl Albumin (3.4-5.0) gm/dl Globulin (2.5-4.0) gm/dl Albumin/Globulin Ratio (0.9-2) Urine Color Yellow Urine Appearance Clear (Clear) Urine pH 7.5 (4.5-7.5) Ur Specific [place] 1.019 (1.000-1.030) Urine Protein 4+ H (Negative) Urine Glucose (UA) 1+ H (Negative) Urine Ketones Negative (Negative) Urine Blood Negative (Negative) Urine Nitrite Negative (Negative) Urine Bilirubin Negative (Negative) Urine Urobilinogen Negative (Negative) Ur Leukocyte Esterase Negative (Negative) Urine WBC (Auto) 1-5 (0-5) /hpf Urine RBC (Auto) 0-4 (0-4) /hpf U Hyaline Cast (Auto) 0 (0-5) /lpf U Epithel Cells (Auto) 20-30 H (0-5) /lpf Urine Bacteria (Auto) Negative (Negative) Nasal Screen MRSA (PCR) Negative (Negative) Hep Bs Antigen (Neg) Hep Bs Antibody Hep Bs Antibody, Quant (>or=10mIU/mL Immune) mIU/mL 10/13/18 10/13/18 10/13/18 Range/Units 05:51 05:51 07:18 WBC 4.70 L (4.8-10.8) K/uL RBC 2.59 L (4.7-6.1) M/uL Hgb 7.9 L (14.0-18.0) g/dL Hct 23.8 L (42-52) % MCV 91.9 (80-100) fL MCH 30.5 (25-34) pg MCHC 33.2 (32-36) g/dL RDW Std Deviation 45.2 (36.4-46.3) fL RDW Coeff of Anam 13.5 (11.5-14.5) % Plt Count 195 (130-400) K/uL MPV 10.0 (7.4-10.4) fL PT (9.0-12.0) Seconds INR (0.9-1.1) Sodium 138 (136-145) mmol/L Potassium 4.3 (3.5-5.1) mmol/L Chloride 112 H (98-107) mmol/L Carbon Dioxide 17 L (21-32) mmol/L Anion Gap 9.0 (3-11) BUN 77 H (7-18) mg/dl Creatinine 7.35 H* (0.6-1.4) mg/dl Est Cr Clr Drug Dosing 8.3 ml/min Est GFR ( Amer) 8.2 Est GFR (Non-Af Amer) 7.1 BUN/Creatinine Ratio 10.5 (10-20) Glucose 114 H (70-99) mg/dl POC Glucose 125 H (70-99) Calcium 6.9 L (8.5-10.1) mg/dl Phosphorus (2.5-4.9) mg/dl Magnesium 1.9 (1.8-2.4) mg/dl Total Bilirubin 0.3 (0.2-1) mg/dl AST 21 (15-37) U/L ALT 22 (12-78) U/L Alkaline Phosphatase 75 (45-117) U/L Total Protein 7.1 (6.4-8.2) gm/dl Albumin 2.1 L (3.4-5.0) gm/dl Globulin 5.0 H (2.5-4.0) gm/dl Albumin/Globulin Ratio 0.4 L (0.9-2) Urine Color Urine Appearance (Clear) Urine pH (4.5-7.5) Ur Specific [place] (1.000-1.030) Urine Protein (Negative) Urine Glucose (UA) (Negative) Urine Ketones (Negative) Urine Blood (Negative) Urine Nitrite (Negative) Urine Bilirubin (Negative) Urine Urobilinogen (Negative) Ur Leukocyte Esterase (Negative) Urine WBC (Auto) (0-5) /hpf Urine RBC (Auto) (0-4) /hpf U Hyaline Cast (Auto) (0-5) /lpf U Epithel Cells (Auto) (0-5) /lpf Urine Bacteria (Auto) (Negative) Nasal Screen MRSA (PCR) (Negative) Hep Bs Antigen (Neg) Hep Bs Antibody Hep Bs Antibody, Quant (>or=10mIU/mL Immune) mIU/mL 10/13/18 Range/Units 10:46 WBC (4.8-10.8) K/uL RBC (4.7-6.1) M/uL Hgb (14.0-18.0) g/dL Hct (42-52) % MCV (80-100) fL MCH (25-34) pg MCHC (32-36) g/dL RDW Std Deviation (36.4-46.3) fL RDW Coeff of Anam (11.5-14.5) % Plt Count (130-400) K/uL MPV (7.4-10.4) fL PT (9.0-12.0) Seconds INR (0.9-1.1) Sodium (136-145) mmol/L Potassium (3.5-5.1) mmol/L Chloride (98-107) mmol/L Carbon Dioxide (21-32) mmol/L Anion Gap (3-11) BUN (7-18) mg/dl Creatinine (0.6-1.4) mg/dl Est Cr Clr Drug Dosing ml/min Est GFR ( Amer) Est GFR (Non-Af Amer) BUN/Creatinine Ratio (10-20) Glucose (70-99) mg/dl POC Glucose (70-99) Calcium (8.5-10.1) mg/dl Phosphorus (2.5-4.9) mg/dl Magnesium (1.8-2.4) mg/dl Total Bilirubin (0.2-1) mg/dl AST (15-37) U/L ALT (12-78) U/L Alkaline Phosphatase (45-117) U/L Total Protein (6.4-8.2) gm/dl Albumin (3.4-5.0) gm/dl Globulin (2.5-4.0) gm/dl Albumin/Globulin Ratio (0.9-2) Urine Color Urine Appearance (Clear) Urine pH (4.5-7.5) Ur Specific [place] (1.000-1.030) Urine Protein (Negative) Urine Glucose (UA) (Negative) Urine Ketones (Negative) Urine Blood (Negative) Urine Nitrite (Negative) Urine Bilirubin (Negative) Urine Urobilinogen (Negative) Ur Leukocyte Esterase (Negative) Urine WBC (Auto) (0-5) /hpf Urine RBC (Auto) (0-4) /hpf U Hyaline Cast (Auto) (0-5) /lpf U Epithel Cells (Auto) (0-5) /lpf Urine Bacteria (Auto) (Negative) Nasal Screen MRSA (PCR) (Negative) Hep Bs Antigen Neg (Neg) Hep Bs Antibody Non-Immune Hep Bs Antibody, Quant 5.51 L (>or=10mIU/mL Immune) mIU/mL Blood Pressure Blood Pressure Findings: Elevated blood pressure MDM Narrative Patient here with complicated medical history and worsening creatinine found on outpatient labs. [facility] the [facility], patient does have a history of noncompliance, and states her creatinine is normally worse during dehydration. States he did hold her diuretic recently as he was concerned this was making the dehydration worsening contributed to the elevated creatinine. S joyce the fistula on her left arm is not fully functional yet and they have been trying to hold off using it until her creatinine no longer recovers. Patient has not had any recent elevated potassium levels. No recent fevers or chills. I do not suspect occult infectious etiology. He states he is assisted in her management by a tele-warehouse operations manager, but that he currently has no available beds in their infirmary and they are concerned given her complicated history and possible need for dialysis that she would require inpatient evaluation. Patient here well-appearing and denies any complaints, patient found to be hypertensive here, however was given a dose of IV hydralazine and it did improve. Case discussed with hospitalist for additional management and evaluation. Impression & Plan Acute kidney injury, HTN (hypertension), Anemia, Chronic kidney disease, Dehydration, Noncompliance Discharge Plan Visit Data *Final* Discharge Date/Time: 10/12/18 19:43 Chief Complaint: Abnormal Labs/Diagnostic Testing Stated Complaint: ABD LABS ED Provider: Katie Bingham Discharge Problem: Acute kidney injury, HTN (hypertension), Anemia, Chronic kidney disease, Dehydration, Noncompliance Patient Disposition: Admitted As Inpatient Discharge Instructions Interventions: ED Discharge Assessment Last Done: 10/12/18 19:43 Discharge Problem: HTN (hypertension) Qualifiers: Hypertension type: unspecified Qualified Code(s): I10 - Essential (primary) hypertension Anemia Qualifiers: Anemia type: unspecified type Qualified Code(s): D64.9 - Anemia, unspecified Chronic kidney disease Qualifiers: Chronic kidney disease stage: unspecified stage Qualified Code(s): N18.9 - Chronic kidney disease, unspecified The scribe's documentation has been prepared under my direction and personally reviewed by me in its entirety. I confirm that the note above accurately reflects all work, treatment, procedures, and medical decision making performed by me.
[2018-10-13] MEDS: ACETAMINOPHEN 325 MG TAB PO PRN (22:09)
[2018-10-13] MEDS: LATANOPROST 0.005% OP SOLN 2.5 ML BTL OP SCH (22:11)
[2018-10-14 05:18] LABS: Hematocrit (blood only) 22.6 % (42-52); Hemoglobin 7.6 g/dL (14.0-18.0); Mean Corpuscular Hgb Conc 33.6 g/dL (32-36); Mean Corpuscular Volume 91.9 fL (80-100); Mean Platelet Volume 9.2 fL (7.4-10.4); Platelet Count 161 K/uL (130-400); RDW Coefficient of Variation 13.3 % (11.5-14.5); RDW Standard Deviation 44.9 fL (36.4-46.3); Red Blood Count 2.46 M/uL (4.7-6.1); White Blood Count 4.57 K/uL (4.8-10.8)
[2018-10-14 05:56] LABS: Albumin Globulin Ratio 0.4 (0.9-2); Albumin Level 1.8 gm/dl (3.4-5.0); BUN Creatinine Ratio 10.6 (10-20); Bilirubin,Total 0.3 mg/dl (0.2-1); Calcium 6.5 mg/dl (8.5-10.1); Creatinine Clr Calc Pharmacy 7.9 ml/min; Est GFR (African American) 7.7; Est GFR (Non-African American) 6.7; Globulin 4.9 gm/dl (2.5-4.0); Potassium 4.4 mmol/L (3.5-5.1); Total Protein 6.7 gm/dl (6.4-8.2)
[2018-10-14] MEDS: AMLODIPINE BESYLATE 5 MG TAB PO SCH (07:44)
[2018-10-14] MEDS: NEPHROCAPS PO SCH (07:45)
[2018-10-14] MEDS: CARVEDILOL 12.5 MG TAB PO SCH ×2 (07:45→21:10)
[2018-10-14] MEDS: DOCUSATE SODIUM 100 MG CAP PO SCH (07:45)
[2018-10-14] MEDS: FINASTERIDE 5 MG TAB PO SCH (07:45)
[2018-10-14] MEDS: SODIUM BICARBONATE 650 MG TAB PO SCH ×3 (07:45→21:12)
[2018-10-14] MEDS: INSULIN ASPART 100 UNITS/ML 3 ML PEN SC SCH ×4 (07:46→21:12)
[2018-10-14] MEDS: CARVEDILOL 25 MG TAB PO SCH ×2 (07:46→21:12)
[2018-10-14] MEDS: HEPARIN SOD 5,000 UNIT/0.5 ML VIAL SQ SCH ×2 (07:47→21:13)
[2018-10-14] MEDS: ROSUVASTATIN CALCIUM 10 MG TAB PO SCH (07:47)
--- NOTE | 2018-10-14 09:51 | Nephrology Progress Note ---
Date of Service October 14, 2018 Assessment & Plan (1) ESRD (end stage renal disease): -- 11/24 Renal biopsy ([facility]) c/w diabetic nephropathy -- Medical records from [facility] show progressive rise in creatinine from ~ 3.0 (08/27) to ~ 6.5 (late 10/25) -- Progressive decline in kidney function despite IV hydration. Will order renal US. Patient likely has ESRD -- AVF with good thrill and bruit and mature for use. L arm has developed significant swelling concerning for central venous stenosis. Will order LUE venous duplex and ask vascular surgery to assess (2) HIV disease: -- No adjustment in medications is necessary at this time based on change in kidney function (3) HTN (hypertension): -- Adjust hydralazine as needed -- Coreg at home dose 50 mg BID (4) Anemia: -- No signs of active bleeding -- Iron studies ordered for tomorrow am lab draw -- Epogen 4,000 U SQ ordered today Subjective Miss Dash was seen & examined in her hospital room this morning. She reports that she has recovered from her "cold" but expresses concern that her L arm has become swollen. Physical Exam Vital Signs (Past 24 Hours): Last Vital Signs Temp 37.3 C 10/14/18 07:20 Pulse 70 10/14/18 07:20 Resp 20 10/14/18 07:20 BP 179/84 H 10/14/18 07:20 Pulse Ox 97 10/14/18 07:20 Eyes: PERRL, conjunctivae normal, anicteric sclerae ENMT: external ear and nose normal, oropharynx normal Neck: trachea midline, no thyromegaly Respiratory: normal respiratory effort, lungs clear to auscultation Cardiovascular: Rate/Rhythm: regular rate and regular rhythm Heart Sounds: no murmur Extremities: + AV fistula (+ bruit. L arm swollen) Gastrointestinal (Abdomen): normal bowel sounds, soft, nontender, no hepatosplenomegaly Musculoskeletal: no cyanosis or clubbing, extremities motor strength 5/5 Results & Data Laboratory Results Laboratory Tests 10/14/18 10/14/18 05:08 05:08 WBC 4.57 L Hgb 7.6 L Hct 22.6 L Plt Count 161 Sodium 138 Potassium 4.4 Chloride 114 H Carbon Dioxide 18 L BUN 82 H Creatinine 7.74 H* D Glucose 112 H Laboratory Tests 10/12/18 20:21 Urine Color Yellow Urine Appearance Clear Urine pH 7.5 Ur Specific [place] 1.019 Urine Protein 4+ H Urine Glucose (UA) 1+ H Urine Blood Negative Urine WBC (Auto) 1-5 Urine RBC (Auto) 0-4 Urine Bacteria (Auto) Negative
[2018-10-14] MEDS ORDERED: EPOETIN ALFA 4,000 UNIT/ML VIAL SQ SCH (11:00)
--- NOTE | 2018-10-14 11:31 | Ultrasound Report ---
ULTRASOUND LEFT UPPER EXTREMITY VENOUS CLINICAL HISTORY: Left upper extremity AV fistula. COMPARISON STUDY: Upper extremity venous mapping study dated 03/03/2018. TECHNIQUE: Real-time, grayscale, and color Doppler sonography of the deep veins of the left upper ext remity is performed. Compression and augmentation were utilized. FINDINGS: There is no sonographic evidence of deep venous thrombosis identified in the left upper ext remity. The left internal jugular, axillary, and brachial veins are patent and normally compressible. Normal venous waveforms and augmentation are seen within the left subclavian vein. The cephalic and basilic veins are clear. The visualized radial and ulnar veins are patent. An AV fistula is present i n the left forearm. The fistula appears patent. Maximum velocities within the fistula measure up to 2 18 cm/s. IMPRESSION: 1. There is no sonographic evidence of deep venous thrombosis identified in the left upper extremity. 2. An AV fistula in the left forearm is patent with velocities measuring up to 218 cm/s. Electronically signed by: Tan Oseguera M.D. 10/14/2018 11:30 AM
--- NOTE | 2018-10-14 11:38 | Ultrasound Report ---
US renal/blad retro comp HISTORY: 62 years-old Male CKD chronic kidney disease COMPARISON: CT abdomen and pelvis 06/12/2018 TECHNIQUE: Multiple real-time sonographic images of the kidneys and urinary bladder were obtained ass essing grayscale appearance and color flow FINDINGS: The right kidney measures 8.7 x 4.3 x 5.4 cm and is unremarkable without renal calculi, hydronephrosi s or suspicious mass lesions. Mildly increased echogenicity of the renal parenchyma. The lower pole i s partially secured by bowel gas. Left kidney measures 9.2 x 4.9 x 6.2 cm and is unremarkable without renal calculi, hydronephrosis or suspicious mass lesions. Mildly increased echogenicity is also noted about the left kidney. Partial distention of the bladder with mild wall thickening and trabeculation. Bilateral ureteral jet s are noted. Indeterminate free fluid noted posterior to the urinary bladder. IMPRESSION: 1. No renal calculi or hydronephrosis. 2. Mildly increased echogenicity of the bilateral renal parenchyma suggestive of underlying medical renal disease. 3. Mild urinary bladder wall thickening and trabeculation. Correlate with urinalysis. 4. Nonspecific free pelvic fluid. The above report was generated using voice recognition software. It may contain grammatical, syntax o r spelling errors. Electronically signed by: Dickson Tate M.D. 10/14/2018 11:37 AM
--- NOTE | 2018-10-14 14:07 | Hospitalist Progress Note ---
Date of Service October 14, 2018 Assessment & Plan (1) Acute kidney injury superimposed on CKD: Discussed with Dr. Mitchell this morning. Initially thought to be due to Bactrim and pre-renal, but this is actually been worsening over several months. - Plan for HD; however, left arm is now swollen. Concern for central stenosis. - Holding TATE and ARB, avoid other nephrotoxins - As of 10/14, Cr is stable >7. No acute HD needs. (2) Pleural effusion: CXR on 10/12 was clear with small bibasilar pleural effusion, appears to be chronic. Breath sounds clear on RA, and O2 sats adequate. Likely aspect of volume overload from his ESRD. - Monitor respiratory status. (3) Anemia: Baseline Cr is variable, as high as 10 in 06/2018, and as low as 7.3 a few days later. - On 10/14, hgb was 7.6; down slightly from day prior. No signs of bleeding. Likely due to CKD. Received Epo per nephrolog on 10/13. - Monitor (4) HTN (hypertension): Elevated upon arrival at 197/90. Holding TATE and ARB as above. - Continue amlodipine, hydralazine, carvedilol - Hydralazine PRN (5) HIV (human immunodeficiency virus infection): Reportedly is routinely on tenofovir 300mg on Wednesday/, lamivudine 100mg PO daily, dolutegravir 50mg daily, and Prezcobix (darunavir 800mg- cobicistat 150mg) 1 tablet daily; however, he appears to be refusing all his medications per the nephrology note. CD4 was 217 (in Apr 2017). - Will get CD4 count with AM labs - Discuss with patient if he is taking his HIV meds (6) DM type 2 (diabetes mellitus, type 2): - A1C = 4.9 on 06/26/18, follow glucose with am labs - ISS with accuchecks, not on pharmacological treatment as outpatient (7) SSS (sick sinus syndrome): S/p pacemaker. HR normal so far in 70s. - Continue carvedilol as above, stable. - No inpatient management (8) Glaucoma: On latanoprost. (9) [id number] transgender person: - Continue estradiol patch, finasteride. (10) DVT prophylaxis: Heparin 5000 Q12h Subjective 62yo transgender F w/ hx of HIV, CKD, and DM who presents with ESRD. This morning, she reports her left arm is swollen. She does not remember it happening, and assumes it must have happened overnight. Reports no fevers/chills, chest pain, shortness of breath, abdominal pain, nausea, or vomiting. Physical Exam Vital Signs (Past 24 Hours): Last Vital Signs Temp 36.3 C L 10/14/18 11:21 Pulse 71 10/14/18 11:21 Resp 20 10/14/18 11:21 BP 181/89 H 10/14/18 11:21 Pulse Ox 100 10/14/18 11:21 Constitutional: well developed and + thin; no acute distress and not ill appearing Eyes: PERRL, conjunctivae normal, anicteric sclerae no scleral abnormality and no corneal abnormality ENMT: external ear and nose normal, oropharynx normal Mouth: no oral mucosal abnormality and oral mucous membranes not dry Neck: trachea midline, no thyromegaly normal visual inspection Thyroid: normal thyroid Respiratory: normal respiratory effort, lungs clear to auscultation no respiratory distress Auscultation: lungs clear to auscultation bilaterally Cardiovascular: Rate/Rhythm: regular rate and regular rhythm Heart Sounds: normal S1 and normal S2; no gallop, no murmur and no cardiac rub Extremities: + AV fistula (+ bruit. L arm swollen) Gastrointestinal (Abdomen): normal bowel sounds, soft, nontender, no hepatosplenomegaly Percussion/Palpation: abdomen soft; abdomen nontender Musculoskeletal: Extremities: + upper extremity abnormal to inspection (Right normal) Left (Swollen); no cyanosis and no clubbing Skin: normal turgor; no rashes Neurologic: Motor/Sensory: no tremor and no asterixis Psychiatric: Eye Contact: good eye contact Affect: euthymic affect (1) Anemia Anemia type: unspecified type Qualified Code(s): D64.9 - Anemia, unspecified (2) HTN (hypertension) Hypertension type: unspecified Qualified Code(s): I10 - Essential (primary) hypertension
--- NOTE | 2018-10-14 15:15 | Consultation ---
Date of Consultation October 14, 2018 Assessment & Plan (1) ESRD (end stage renal disease): Pt with significant LUE edema and worsening renal fxn, possibly needing HD soon. Edema of LUE causes difficulty in assessing AVF for maturation and will cause difficulty in cannulation as well. Edema likely d/t a more central venous stenosis, possibly related to location of pacemaker leads. Pt discussed with Dr Hemphill, recommends fistulagram/venogram with intervention early next week. Pt understands that she may require dialysis after the procedure and is agreeable. Patient was seen, examined, and chart reviewed. Agree with exam and treatment plan of the Vascular PA. Will plan on fistulogram with possible intervention on Wednesday. History of Present Illness Reason for Consultation: LUE edema, AVF Attending Physician: Gibran Pardo MD History of Present Illness 62 yo transgender male with multiple medical problems, including HTN, CKD, HIV, DMII, and pacemaker, admitted for worsening renal fxn, seen in consultation today for LUE edema and functioning of AVF. Pt states had LUE AVF created at [facility] approx 4-5 months ago. States he had some edema of LUE since creation, however, this is significantly worse over past 48 hrs. Pt denies pain in LUE. Admits fatigue, malaise. Denies fever, chills, chest pain, abd pain, N/V, rest pain, claudication, other complaints. Venous US of LUE demonstrates no DVT and a patent AVF. Allergies Allergy/AdvReac Type Severity Reaction Status Date / Time abacavir Allergy Severe Unknown Verified 10/12/18 18:46 Penicillins Allergy Intermediate UNKNOWN Verified 10/12/18 18:46 Home Medications Home Medications Medication Instructions Recorded Confirmed Type Nephro-Ramirez Rx 1 tab PO DAILY 06/13/18 10/12/18 History Prezcobix 1 tab PO DAILY 06/13/18 10/12/18 History Tivicay 50 mg PO DAILY 06/13/18 10/12/18 History carvedilol 50 mg PO BID 06/13/18 10/12/18 History estradiol [Climara] 1 patch TOPICAL WK 06/13/18 10/12/18 History finasteride 5 mg PO DAILY 06/13/18 10/12/18 History glucose 1 tab PO QID PRN 06/13/18 10/12/18 History lamivudine [Epivir HBV] 100 mg PO DAILY 06/13/18 10/12/18 History latanoprost [Xalatan] 1 drp OPB HS 06/13/18 10/12/18 History rosuvastatin 10 mg PO DAILY 06/13/18 10/12/18 History sodium bicarbonate 650 mg PO BID 06/13/18 10/12/18 History benzonatate 100 mg PO BID PRN 10/12/18 10/12/18 History docusate sodium 250 mg PO BID PRN 10/12/18 10/12/18 History hydralazine 25 mg PO TID 10/12/18 10/12/18 History insulin regular human [Humulin R 1 sliding scale dose SUBCUT UD 10/12/18 10/12/18 History Regular U-100 Insuln] tenofovir disoproxil fumarate 300 mg PO 2XWK 10/12/18 10/12/18 History [Viread] torsemide 20 mg PO DAILY 10/12/18 10/12/18 History Patient History Medical History Diabetic nephropathy HTN (hypertension) (Acute) Anemia (Acute) HIV disease Pericardial effusion Diverticulosis Cholelithiasis Hiatal hernia Glaucoma HIV (human immunodeficiency virus infection) (Chronic) CKD (chronic kidney disease), stage III (Chronic) HTN (hypertension) (Chronic) G-6-PD deficiency (Chronic) CVA (cerebral vascular accident) (Chronic) DM type 2 (diabetes mellitus, type 2) (Chronic) [id number] transgender person (Chronic) Pacemaker (Chronic) SBO (small bowel obstruction) (Acute) AVF (arteriovenous fistula) HTN (hypertension) (Chronic) CVA (cerebral vascular accident) (Resolved) Surgical History History of appendectomy (Resolved) Family History Mother No problems noted. Other No pertinent family history Social History Preferred Language: Yi Communication Ability: Effective Beliefs That Will Affect Care: None Current Living Situation: Other Current Living Situation Comment: fdc Other Information That Helps Us Care for You: No Feels Safe at Home: Yes Safety Concerns: Feels Safe At This Time Smoking Status: Never smoker Hx Alcohol Use: No Hx Substance Use: No Review of Systems Constitutional: + fatigue and + malaise; no fever, no chills, no sweats and no weight loss Eyes: no blind spots and no problem reported Ear, Nose, Mouth, Throat: no hearing loss and no sore throat Respiratory: + cough; no dyspnea, no dyspnea on exertion and no hemoptysis Cardiovascular: + edema (LUE); no chest pain, no palpitations, no syncope, no claudication and no problem reported Gastrointestinal: no abdominal pain, no early satiety, no nausea, no vomiting, no cramping, no change in bowel habits, no diarrhea/loose stools and no blood in stools Musculoskeletal: no back pain, no joint pain, no swelling and no muscle weakness Integumentary: no rash, no non-healing lesions, no skin ulcer, no wounds and no erythema Neurologic: no localized weakness, no generalized weakness, no paralysis, no loss of sensation, no tingling, no numbness, no paresthesia, no seizure-like activity, no syncope, no headache(s) and no confusion Psychiatric: as per Subjective / HPI Hematologic / Lymphatic: no easy bleeding, no easy bruising, no coagulopathy, no night sweats and no unexplained weight loss Physical Exam Vital Signs (Past 24 Hours): Last Vital Signs Temp 36.3 C L 10/14/18 11:21 Pulse 71 10/14/18 11:21 Resp 20 10/14/18 11:21 BP 181/89 H 10/14/18 11:21 Pulse Ox 100 10/14/18 11:21 Constitutional: WD/WN, vitals as above well developed, well nourished, + ill appearing, + thin, cooperative and comfortable Eyes: PERRL, conjunctivae normal, anicteric sclerae EOM intact bilaterally ENMT: external ear and nose normal, oropharynx normal Ears: no hearing imp airment Nose: no nasal discharge Neck: trachea midline, no thyromegaly no tracheal deviation, no neck crepitus and neck nontender Respiratory: normal respiratory effort, lungs clear to auscultation able to speak in complete sentences; does not use accessory muscles, no cough, not ta chypneic and no audible wheezes Auscultation: lungs clear to auscultation bilaterally and + diminished lung sounds; no rhonchi and no wheezes Cardiovascular: RRR, no murmur, no edema Heart Sounds: no gallop and no murmur Vessels: femoral pulses present, posterior tibial pulses present, do rsalis pedis pulses present, brachial pulses present and radial pulses present; no carotid bruit and no femoral bruit Extremities: normal capillary refill, + edema (LUE +3 edema distal upper arm to hand/fingers) and + AV fistula (faint thrill/bruit over LUE upper arm avf. Incision well healed) Chest (Breasts): Chest: + pacemaker Gastrointestinal (Abdomen): normal bowel sounds, soft, nontender, no hepatosplenomegaly Inspection/Auscultation: abdomen normal to inspection and normal bowel sounds; abdomen not distended Percussion/Palpation: abdomen soft; abdomen nontender, no guarding and abdomen not rigid Musculoskeletal: no cyanosis or clubbing, extremities motor strength 5/5 Head/Neck/Chest: normocephalic, head atraumatic and neck supple; no chest tenderness Extremities: extremities normal to inspection and strength 5/5 throughout; full ROM of extremities Skin: no rashes, warm and dry + dry skin; no rashes, no lesions, no ulcers, no induration, no erythema and no mottling Neurologic: moves all extremities and awake; no focal motor deficits and not confused Speech / Cognition: no expressive aphasia and no receptive aphasia Motor/Sensory: no tremor and no sensory deficit Cranial Nerves: EOM intact bilaterally, normal facial strength and tongue midline Psychiatric: Orientation: alert, oriented x 3, oriented to person, oriented to place, oriented to time and cooperative Apperance: appropriately dressed, appropriately groomed and appeared stated age; not disheveled Affect: + depressed affect Thought Process: goal directed thought process, linear/logical thought process and clear/coherent thought process Cognition: recent memory grossly intact, remote memory grossly intact, attention grossly intact and language grossly intact Estimated Intelligence: consistent with education level Lymphatic: no lymphedema
[2018-10-14] MEDS: TENOFOVIR 300 MG PO SCH (21:10)
[2018-10-14] MEDS: ACETAMINOPHEN 325 MG TAB PO PRN (21:14)
[2018-10-14] MEDS: LATANOPROST 0.005% OP SOLN 2.5 ML BTL OP SCH (21:14)
[2018-10-15] MEDS ORDERED: ONDANSETRON INJ 2 MG/ML 2 ML VIAL IV PRN (07:35)
[2018-10-15] MEDS: CARVEDILOL 12.5 MG TAB PO SCH (07:36)
[2018-10-15] MEDS: FINASTERIDE 5 MG TAB PO SCH (07:37)
[2018-10-15] MEDS: ROSUVASTATIN CALCIUM 10 MG TAB PO SCH (07:37)
[2018-10-15] MEDS: NEPHROCAPS PO SCH (07:37)
[2018-10-15] MEDS: DOCUSATE SODIUM 100 MG CAP PO SCH (07:37)
[2018-10-15] MEDS: SODIUM BICARBONATE 650 MG TAB PO SCH ×3 (07:38→19:35)
[2018-10-15] MEDS: CARVEDILOL 25 MG TAB PO SCH ×2 (07:38→19:34)
[2018-10-15] MEDS: AMLODIPINE BESYLATE 5 MG TAB PO SCH (07:38)
[2018-10-15] MEDS: HEPARIN SOD 5,000 UNIT/0.5 ML VIAL SQ SCH ×2 (07:39→19:37)
[2018-10-15] MEDS: PREZCOBIX PO SCH (07:40)
[2018-10-15] MEDS: LAMIVUDINE 100 MG PO SCH (07:40)
[2018-10-15] MEDS: TIVICAY 50 MG PO SCH (07:40)
[2018-10-15] MEDS: INSULIN ASPART 100 UNITS/ML 3 ML PEN SC SCH ×4 (07:41→20:22)
[2018-10-15 08:05] LABS: Hematocrit (blood only) 22.5 % (42-52); Hemoglobin 7.5 g/dL (14.0-18.0); Mean Corpuscular Hgb Conc 33.3 g/dL (32-36); Mean Corpuscular Volume 91.5 fL (80-100); Mean Platelet Volume 9.9 fL (7.4-10.4); Platelet Count 193 K/uL (130-400); RDW Coefficient of Variation 13.4 % (11.5-14.5); RDW Standard Deviation 45.2 fL (36.4-46.3); Red Blood Count 2.46 M/uL (4.7-6.1)
[2018-10-15 09:05] LABS: BUN Creatinine Ratio 11.2 (10-20); Creatinine Clr Calc Pharmacy 7.7 ml/min; Est GFR (African American) 7.6; Est GFR (Non-African American) 6.5; Ferritin 669.9 ng/ml (8-388); Phosphorus 4.7 mg/dl (2.5-4.9); Potassium 4.3 mmol/L (3.5-5.1)
--- NOTE | 2018-10-15 09:13 | Nephrology Progress Note ---
Date of Service October 15, 2018 Assessment & Plan (1) ESRD (end stage renal disease): -- 11/24 Renal biopsy ([facility]) c/w diabetic nephropathy. -- Medical records from [facility] show progressive rise in creatinine consistent with ESRD. -- Renal US did not demonstrate obstruction. -- No emergent indication for dialysis today. Patient aware that starting dialysis early next week following fistulogram may be necessary. -- Oral NaHCO3 increased to 1300 mg TID today for metabolic acidosis. -- AVF with good thrill and bruit and mature for use. L arm has developed significant swelling concerning for central venous stenosis. No clot appreciated on venous duplex. Fistulogram scheduled for early next week by Dr. Hemphill. (2) HIV disease: -- No adjustment in medications is necessary at this time based on change in kidney function. (3) HTN (hypertension): -- Uncontrolled on amlodipine 10 mg daily, Coreg 37.5 mg BID and hydralazine 25 mg TID. -- Hydralazine increased to 50 mg TID. -- Coreg increased to 50 mg BID. -- Home dose of torsemide has been held but may be restarted as needed. (4) Anemia: -- No signs of active bleeding. -- Iron profile acceptable. -- Epogen 4,000 U SQ given 10/14/18. Subjective Ms. Dash was seen & examined in her hospital room this morning. Left arm remains swollen. She denies pain. She is breathing comfortably and otherwise feels well. She denies any urinary complaints. She denies chest pain, palpitations, or dyspnea. She denies headaches. Review of Systems All systems reviewed & are unremarkable except as noted in HPI & below Physical Exam Vital Signs (Past 24 Hours): Last Vital Signs Temp 36.8 C 10/15/18 07:10 Pulse 69 10/15/18 07:10 Resp 18 10/15/18 07:10 BP 163/79 H 10/15/18 07:10 Pulse Ox 97 10/15/18 07:10 Constitutional: well developed and + thin; no acute distress and not ill appearing Eyes: no scleral abnormality and no corneal abnormality ENMT: Mouth: no oral mucosal abnormality and oral mucous membranes not dry Neck: normal visual inspection Thyroid: normal thyroid Respiratory: no respiratory distress Auscultation: lungs clear to auscultation bilaterally Cardiovascular: Rate/Rhythm: regular rate Heart Sounds: normal S1 and normal S2; no gallop and no cardiac rub Gastrointestinal (Abdomen): Percussion/Palpation: abdomen soft; abdomen nontender Musculoskeletal: Extremities: no cyanosis and no clubbing Skin: normal turgor; no rashes Neurologic: Motor/Sensory: no tremor and no asterixis Psychiatric: Eye Contact: good eye contact Affect: euthymic affect Results & Data Laboratory Results Laboratory Results - last 24 hr 10/14/18 10/14/18 10/14/18 11:17 16:07 20:05 WBC RBC Hgb Hct MCV MCH MCHC RDW Std Deviation RDW Coeff of Anam Plt Count MPV Sodium Potassium Chloride Carbon Dioxide Anion Gap BUN Creatinine Est Cr Clr Drug Dosing Est GFR ( Amer) Est GFR (Non-Af Amer) BUN/Creatinine Ratio Glucose POC Glucose 194 H 164 H 122 H Calcium Phosphorus Magnesium Iron Transferrin Transferrin % Sat Ferritin 10/15/18 10/15/18 10/15/18 07:14 07:14 07:25 WBC 5.30 RBC 2.46 L Hgb 7.5 L Hct 22.5 L MCV 91.5 MCH 30.5 MCHC 33.3 RDW Std Deviation 45.2 RDW Coeff of Anam 13.4 Plt Count 193 MPV 9.9 Sodium 140 Potassium 4.3 Chloride 114 H Carbon Dioxide 16 L Anion Gap 10.0 BUN 88 H Creatinine 7.88 H* Est Cr Clr Drug Dosing 7.7 Est GFR ( Amer) 7.6 Est GFR (Non-Af Amer) 6.5 BUN/Creatinine Ratio 11.2 Glucose 115 H POC Glucose 129 H Calcium 7.0 L Phosphorus 4.7 Magnesium 2.0 Iron 67 Transferrin 150 L Transferrin % Sat 32 Ferritin 669.9 H
--- NOTE | 2018-10-15 12:26 | Family Medicine Progress Note ---
Date of Service October 15, 2018 Assessment & Plan (1) ESRD (end stage renal disease): ESRD/LEEROY on CKD: - Appreciate nephro input: biopsy showing diabetic nephropathy, progressive rise in cr c/w ESRD, no obstruction on Renal US - No emergent indication for dialysis today. - Plan for HD; however, left arm remains swollen with concern for central stenosis. - Going for veno/fistulogram on Wednesday 10/18 - Holding TATE and ARB, avoid other nephrotoxins - As of 10/15, Cr is stable >7. Pleural effusion: - CXR on 10/12 was clear with small bibasilar pleural effusion, appears to be chronic. Breath sounds clear, O2 sats OK on RA. - Likely aspect of volume overload from ESRD. - Monitor respiratory status. Anemia: - Baseline Hb is variable, as high as 10 in 06/2018, and as low as 7.3 a few days later. - On 10/15, hgb was 7.5; down slightly from day prior. No signs of bleeding. Likely due to CKD. Received Epo per nephro on 10/14. - Continue to monitor HTN (hypertension): - Elevated upon arrival at 197/90. Holding TATE and ARB as above. - C/w amlodipine, increase hydralazine to 50 TID, carvedilol up to 50 BID HIV (human immunodeficiency virus infection): - Reportedly is routinely on tenofovir 300mg on Wednesday/, lamivudine 100mg PO daily, dolutegravir 50mg daily, and Prezcobix (darunavir 800mg- cobicistat 150mg) 1 tablet daily; however, thought to be refusing all meds per nephro note. CD4 was 217 (in Apr 2017). - Current CD4 count pending - Discussed with patient, who reports she is taking all meds given to her at custodial; Dr. Pardo called [facility] to review records. Per custodial records, she has been taking meds, including for days she has been in the hospital, which is suspicious DM type 2 (diabetes mellitus, type 2): - A1C = 4.9 on 06/26/18, follow glucose - ISS with accuchecks, not on pharmacological treatment as outpatient SSS (sick sinus syndrome): - S/p pacemaker. HR normal so far in 70s. - Continue meds as above, stable. - No inpatient management Glaucoma: - On latanoprost. [id number] transgender person: - Continue estradiol patch, finasteride. DVT prophylaxis: Heparin 5000 Q12h CODE: Full Dispo: Awaiting venogram, transfered to med/surg (2) Acute kidney injury: (3) HTN (hypertension): (4) HIV disease: (5) Hepatitis B: (6) SSS (sick sinus syndrome): (7) Pacemaker: (8) DM type 2 (diabetes mellitus, type 2): (9) Anemia: Supervising Physician Co-Signing Physician Notes I saw and examined the patient, and discussed the patient's plan with the resident with the following summary/exceptions: 62yo transgender F w/ hx of DM, HTN, HIV who presents with LEEROY on CKD. Today, she is more subdued. Her left arm has the same swelling as yesterday, no better/worse. Reports no fevers/chills, chest pain, shortness of breath, abdominal pain, nausea, or vomiting. 1) ESRD - Baseline Cr ~3-4, but has actually been trending up for several months. Likely due to DM, HTN, and possibly HIV (or even tenofovir use). Plan for HD once LUE AVF gets sorted out. 2) Left arm swelling - Swelling initially noted on 10/14. LUE U/S on 10/14 showed no DVT or stenosis, but concern for a central stenosis given fistula and pacemaker in LUE. Venogram on 10/[address] Hemphill. 2) HTN - Will conitnue home meds. 3) HIV - Meds obtained from [facility]. Will consult ID for help given the complicated regimen and ESRD. Subjective Pt reports no acute complaints this morning. denies any pain, denies swelling in her legs. Denies malaise, confusion, etc. Does report that her L arm swelling is about the same. Review of Systems All systems reviewed & are unremarkable except as noted in HPI & below Cardiovascular: + edema (LUE) Physical Exam Vital Signs (Past 24 Hours): Last Vital Signs Temp 36.9 C 10/15/18 11:04 Pulse 80 10/15/18 11:04 Resp 18 10/15/18 11:04 BP 154/68 H 10/15/18 11:04 Pulse Ox 95 10/15/18 11:04 Constitutional: WD/WN, vitals as above well developed, well nourished, + thin, cooperative and comfortable; no acute distress and not ill appearing Eyes: PERRL, conjunctivae normal, anicteric sclerae EOM intact bilaterally; no scleral abnormality and no corneal abnormality ENMT: external ear and nose normal, oropharynx normal Ears: no hearing impairment Nose: no nasal discharge Mouth: no oral mucosal abnormality and oral mucous membranes not dry Neck: trachea midline, no thyromegaly normal visual inspection; no tracheal deviation, no neck crepitus and neck nontender Thyroid: normal thyroid Respiratory: normal respiratory effort, lungs clear to auscultation able to speak in complete sentences; no respiratory distress, does not use accessory muscles, no cough, not tachypneic and no audible wheezes Auscultation: lungs clear to auscultation bilaterally; no rhonchi and no wheezes Cardiovascular: Rate/Rhythm: regular rate and regular rhythm Heart Sounds: normal S1 and normal S2; no gallop, no murmur and no cardiac rub Vessels: brachial pulses present and radial pulses present; no carotid bruit and no femoral bruit Extremities: normal capillary refill, + edema (LUE 2+ edema distal upper arm to hand/fingers) and + AV fistula (faint thrill/bruit over LUE upper arm avf. Incision well healed) Chest (Breasts): Chest: + pacemaker Gastrointestinal (Abdomen): normal bowel sounds, soft, nontender, no hepatosplenomegaly Inspection/Auscultation: abdomen normal to inspection and normal bowel sounds; abdomen not distended Percussion/Palpation: abdomen soft; abdomen nontender, no guarding and abdomen not rigid Musculoskeletal: no cyanosis or clubbing, extremities motor strength 5/5 Head/Neck/Chest: normocephalic, head atraumatic and neck supple; no chest tenderness Extremities: extremities normal to inspection, strength 5/5 throughout and + upper extremity abnormal to inspection (Right normal); full ROM of extremities, no cyanosis and no clubbing Skin: no rashes, warm and dry normal turgor and + dry skin; no rashes, no lesions, no ulcers, no induration, no erythema and no mottling Neurologic: moves all extremities and awake; no focal motor deficits and not confused Speech / Cognition: no expressive aphasia and no receptive aphasia Motor/Sensory: no tremor, no asterixis and no sensory deficit Cranial Nerves: EOM intact bilaterally, normal facial strength and tongue midline Psychiatric: Orientation: alert, oriented x 3, oriented to person, oriented to place, oriented to time and cooperative Apperance: appropriately dressed, appropriately groomed and appeared stated age; not disheveled Eye Contact: good eye contact Affect: euthymic affect and + depressed affect Thought Process: goal directed thought process, linear/logical thought process and clear/coherent thought process Cognition: recent memory grossly intact, remote memory grossly intact, attention grossly intact and language grossly intact Results & Data Laboratory Results 10/15/18 10/15/18 10/15/18 Range/Units 11:21 07:25 07:14 WBC (4.8-10.8) K/uL RBC (4.7-6.1) M/uL Hgb (14.0-18.0) g/dL Hct (42-52) % MCV (80-100) fL MCH (25-34) pg MCHC (32-36) g/dL RDW Std Deviation (36.4-46.3) fL RDW Coeff of Anam (11.5-14.5) % Plt Count (130-400) K/uL MPV (7.4-10.4) fL Sodium (136-145) mmol/L Potassium (3.5-5.1) mmol/L Chloride (98-107) mmol/L Carbon Dioxide (21-32) mmol/L Anion Gap (3-11) BUN (7-18) mg/dl Creatinine (0.6-1.4) mg/dl Est Cr Clr Drug Dosing ml/min Est GFR ( Amer) Est GFR (Non-Af Amer) BUN/Creatinine Ratio (10-20) Glucose (70-99) mg/dl POC Glucose 215 H 129 H (70-99) Calcium (8.5-10.1) mg/dl Phosphorus (2.5-4.9) mg/dl Magnesium (1.8-2.4) mg/dl Iron (35-175) mcg/dl Transferrin (200-360) mg/dl Transferrin % Sat (20-50) % Ferritin (8-388) ng/ml Absolute Lymphocytes Pending % CD4 Cells Pending Absolute CD4 Count Pending 10/15/18 10/15/18 10/14/18 Range/Units 07:14 07:14 20:05 WBC 5.30 (4.8-10.8) K/uL RBC 2.46 L (4.7-6.1) M/uL Hgb 7.5 L (14.0-18.0) g/dL Hct 22.5 L (42-52) % MCV 91.5 (80-100) fL MCH 30.5 (25-34) pg MCHC 33.3 (32-36) g/dL RDW Std Deviation 45.2 (36.4-46.3) fL RDW Coeff of Anam 13.4 (11.5-14.5) % Plt Count 193 (130-400) K/uL MPV 9.9 (7.4-10.4) fL Sodium 140 (136-145) mmol/L Potassium 4.3 (3.5-5.1) mmol/L Chloride 114 H (98-107) mmol/L Carbon Dioxide 16 L (21-32) mmol/L Anion Gap 10.0 (3-11) BUN 88 H (7-18) mg/dl Creatinine 7.88 H* (0.6-1.4) mg/dl Est Cr Clr Drug Dosing 7.7 ml/min Est GFR ( Amer) 7.6 Est GFR (Non-Af Amer) 6.5 BUN/Creatinine Ratio 11.2 (10-20) Glucose 115 H (70-99) mg/dl POC Glucose 122 H (70-99) Calcium 7.0 L (8.5-10.1) mg/dl Phosphorus 4.7 (2.5-4.9) mg/dl Magnesium 2.0 (1.8-2.4) mg/dl Iron 67 (35-175) mcg/dl Transferrin 150 L (200-360) mg/dl Transferrin % Sat 32 (20-50) % Ferritin 669.9 H (8-388) ng/ml Absolute Lymphocytes % CD4 Cells Absolute CD4 Count 10/14/18 Range/Units 16:07 WBC (4.8-10.8) K/uL RBC (4.7-6.1) M/uL Hgb (14.0-18.0) g/dL Hct (42-52) % MCV (80-100) fL MCH (25-34) pg MCHC (32-36) g/dL RDW Std Deviation (36.4-46.3) fL RDW Coeff of Anam (11.5-14.5) % Plt Count (130-400) K/uL MPV (7.4-10.4) fL Sodium (136-145) mmol/L Potassium (3.5-5.1) mmol/L Chloride (98-107) mmol/L Carbon Dioxide (21-32) mmol/L Anion Gap (3-11) BUN (7-18) mg/dl Creatinine (0.6-1.4) mg/dl Est Cr Clr Drug Dosing ml/min Est GFR ( Amer) Est GFR (Non-Af Amer) BUN/Creatinine Ratio (10-20) Glucose (70-99) mg/dl POC Glucose 164 H (70-99) Calcium (8.5-10.1) mg/dl Phosphorus (2.5-4.9) mg/dl Magnesium (1.8-2.4) mg/dl Iron (35-175) mcg/dl Transferrin (200-360) mg/dl Transferrin % Sat (20-50) % Ferritin (8-388) ng/ml Absolute Lymphocytes % CD4 Cells Absolute CD4 Count Medications Administered Current Inpatient Medications Acetaminophen (Tylenol) 650 mg PO Q4H PRN PRN Reason: Pain or Fever Stop: 11/12/18 21:09 Last Admin: 10/14/18 21:14 Dose: 650 mg Documented by: Amlodipine Besylate (Norvasc) 10 mg PO DAILY DOROTHY Stop: 11/12/18 08:59 Last Admin: 10/15/18 07:38 Dose: 10 mg Documented by: Benzonatate (Tessalon Perle) 100 mg PO TID PRN PRN Reason: cough Stop: 11/11/18 20:06 Last Admin: 10/13/18 00:50 Dose: 100 mg Documented by: Carvedilol (Coreg) 50 mg PO BID DOROTHY Stop: 11/14/18 20:59 Darunavir/Cobicistat (Prezcobix) 1 ea PO DAILY DOROTHY Stop: 11/14/18 08:59 Last Admin: 10/15/18 07:40 Dose: Not Given Documented by: Dextrose (Dextrose 50%) 25 - 50 ml IV UD PRN; Protocol PRN Reason: Hypoglycemia Protocol Stop: 11/11/18 20:44 Docusate Sodium (Colace) 200 mg PO DAILY DOROTHY Stop: 11/12/18 08:59 Last Admin: 10/15/18 07:37 Dose: 200 mg Documented by: Dolutegravir Sodium (Tivicay) 1 ea PO DAILY DOROTHY Stop: 11/14/18 08:59 Last Admin: 10/15/18 07:40 Dose: Not Given Documented by: Finasteride (Proscar) 5 mg PO DAILY DOROTHY Stop: 11/12/18 08:59 Last Admin: 10/15/18 07:37 Dose: 5 mg Documented by: Glucagon (Glucagen) 1 mg IM UD PRN; Protocol PRN Reason: Hypoglycemia Protocol Stop: 11/11/18 20:44 Glucose (Glucose 40%) 15 - 30 gm PO UD PRN; Protocol PRN Reason: Hypoglycemia Protocol Stop: 11/11/18 20:44 Glucose (Dex4 Glucose) 4 - 8 tabs PO UD PRN; Protocol PRN Reason: Hypoglycemia Protocol Stop: 11/11/18 20:44 Heparin Sodium (Porcine) (Heparin Sodium (Porcine)) 5,000 units SQ Q12 DOROTHY Stop: 11/11/18 21:59 Last Admin: 10/15/18 07:39 Dose: 5,000 units Documented by: Hydralazine HCl (Hydralazine Hcl) 5 mg IV Q8H PRN PRN Reason: SBP > 175 Stop: 11/11/18 20:06 Last Admin: 10/13/18 13:33 Dose: 5 mg Documented by: Hydralazine HCl (Apresoline) 50 mg PO TID DOROTHY Stop: 11/14/18 13:59 Last Admin: 10/15/18 13:10 Dose: 50 mg Documented by: Insulin Aspart (Novolog Flexpen) 0 units SC ACHS DOROTHY Stop: 11/11/18 20:59 Last Admin: 10/15/18 12:11 Dose: 2 units Documented by: Lamivudine (Epivir Hbv) 1 ea PO DAILY DOROTHY Stop: 11/14/18 08:59 Last Admin: 10/15/18 07:40 Dose: Not Given Documented by: Latanoprost (Xalatan Oph) 1 drops OP HS DOROTHY Stop: 11/11/18 20:59 Last Admin: 10/14/18 21:14 Dose: 1 drops Documented by: Menthol (Nice) 1 jonathan BUCCAL PRN PRN PRN Reason: Cough Stop: 11/12/18 02:11 Miscellaneous (Carbohydrates For Hypoglycemia) 15 - 30 gm PO UD PRN PRN Reason: Hypoglycemia Treatment Stop: 11/11/18 20:44 Tenofovir 300 Mg ( Viread) ~ Patient's Own Med 1 ea PO MoTh@0900 DOROTHY Stop: 11/13/18 08:59 Last Admin: 10/14/18 21:10 Dose: 300 mg Documented by: Ondansetron HCl (Zofran) 4 mg IV Q4H PRN PRN Reason: Nausea And Vomiting Stop: 11/11/18 20:06 Ondansetron HCl (Zofran) 4 mg IV Q4H PRN PRN Reason: Nausea Stop: 11/14/18 07:34 Rosuvastatin Calcium (Crestor) 10 mg PO DAILY [facility] Stop: 11/12/18 08:59 Last Admin: 10/15/18 07:37 Dose: 10 mg Documented by: Sodium Bicarbonate (Sodium Bicarbonate) 1,300 mg PO TID DOROTHY Stop: 11/14/18 13:59 Last Admin: 10/15/18 13:10 Dose: 1,300 mg Documented by: Vitamin B Complex/Folic Acid (Nephrocaps) 1 cap PO DAILY DOROTHY Stop: 11/12/18 08:59 Last Admin: 10/15/18 07:37 Dose: 1 cap Documented by: Resident Activity Tracking Resident Involvement: Resident Care Provided Care Provided: Adult Hospital Medicine (1) Anemia Anemia type: unspecified type Qualified Code(s): D64.9 - Anemia, unspecified (2) HTN (hypertension) Hypertension type: unspecified Qualified Code(s): I10 - Essential (primary) hypertension
[2018-10-15] MEDS: LATANOPROST 0.005% OP SOLN 2.5 ML BTL OP SCH (19:36)
[2018-10-16 06:51] LABS: Hematocrit (blood only) 22.4 % (42-52); Hemoglobin 7.7 g/dL (14.0-18.0); Mean Corpuscular Hgb Conc 34.4 g/dL (32-36); Mean Corpuscular Volume 90.3 fL (80-100); Mean Platelet Volume 9.4 fL (7.4-10.4); Platelet Count 188 K/uL (130-400); RDW Coefficient of Variation 13.3 % (11.5-14.5); Red Blood Count 2.48 M/uL (4.7-6.1); White Blood Count 7.16 K/uL (4.8-10.8)
[2018-10-16 07:34] LABS: BUN Creatinine Ratio 10.9 (10-20); Calcium 6.8 mg/dl (8.5-10.1); Creatinine Clr Calc Pharmacy 7.5 ml/min; Est GFR (African American) 7.3; Est GFR (Non-African American) 6.3; Potassium 4.2 mmol/L (3.5-5.1)
[2018-10-16] MEDS: CARVEDILOL 25 MG TAB PO SCH ×2 (08:43→21:08)
[2018-10-16] MEDS: DOCUSATE SODIUM 100 MG CAP PO SCH (08:44)
[2018-10-16] MEDS: AMLODIPINE BESYLATE 5 MG TAB PO SCH (08:44)
[2018-10-16] MEDS: NEPHROCAPS PO SCH (08:44)
[2018-10-16] MEDS: SODIUM BICARBONATE 650 MG TAB PO SCH ×3 (08:45→21:39)
[2018-10-16] MEDS: ROSUVASTATIN CALCIUM 10 MG TAB PO SCH (08:45)
[2018-10-16] MEDS: FINASTERIDE 5 MG TAB PO SCH (08:45)
[2018-10-16] MEDS: LAMIVUDINE 100 MG PO SCH (08:46)
[2018-10-16] MEDS: PREZCOBIX PO SCH (08:46)
[2018-10-16] MEDS: TIVICAY 50 MG PO SCH (08:47)
[2018-10-16] MEDS: INSULIN ASPART 100 UNITS/ML 3 ML PEN SC SCH ×4 (08:48→21:15)
[2018-10-16] MEDS: HEPARIN SOD 5,000 UNIT/0.5 ML VIAL SQ SCH ×2 (08:48→21:12)
--- NOTE | 2018-10-16 09:49 | Nephrology Progress Note ---
Date of Service October 16, 2018 Assessment & Plan (1) ESRD (end stage renal disease): -- Due to biopsy confirmed diabetic nephropathy. -- Recent progressive rise in creatinine consistent with ESRD. I had a long discussion with the patient regarding the advanced nature of her kidney disease. We discussed hemodialysis in detail. -- No emergent indication for dialysis today. Patient aware that starting dialysis early next week following fistulogram may be appropriate. -- Continue [id number] mg TID today for metabolic acidosis. -- AVF mature for use with good thrill and bruit. L arm has developed significant swelling concerning for central venous stenosis. No clot appreciated on venous duplex. Fistulogram scheduled for early next week by Dr. Hemphill. (2) HIV disease: -- No adjustment in medications is necessary at this time based on ch mara in kidney function. (3) HTN (hypertension): -- Improved. Continue amlodipine 10 mg daily, Coreg 50 mg BID and hydralazine 50 mg TID. -- Home dose of torsemide has been held but may be restarted as needed. (4) Anemia: -- No signs of active bleeding. -- Iron profile acceptable. -- Epogen 4,000 U SQ given 10/14/18. Subjective Ms. Dash was seen & examined in her hospital room this morning. Left arm remains swollen but slightly improved. She denies pain. She denies any urinary complaints. She denies chest pain, palpitations, or dyspnea. She denies headaches. The patient is tired. She did not sleep well last night. Review of Systems All systems reviewed & are unremarkable except as noted in HPI & below Physical Exam Vital Signs (Past 24 Hours): Last Vital Signs Temp 36.6 C 10/16/18 07:20 Pulse 69 10/16/18 07:20 Resp 16 10/16/18 07:20 BP 183/88 H 10/16/18 07:20 Pulse Ox 96 10/16/18 07:20 Constitutional: well developed and + thin; no acute distress and not ill appearing Eyes: no scleral abnormality and no corneal abnormality ENMT: Mouth: no oral mucosal abnormality and oral mucous membranes not dry Neck: normal visual inspection Thyroid: normal thyroid Respiratory: no respiratory distress Auscultation: lungs clear to auscultation bilaterally Cardiovascular: Rate/Rhythm: regular rate Heart Sounds: normal S1 and normal S2; no gallop and no cardiac rub Gastrointestinal (Abdomen): Percussion/Palpation: abdomen soft; abdomen nontender Musculoskeletal: Extremities: no cyanosis and no clubbing Skin: normal turgor; no rashes Neurologic: Motor/Sensory: no tremor and no asterixis Psychiatric: Eye Contact: good eye contact Affect: euthymic affect Results & Data Laboratory Results Laboratory Results - last 24 hr 10/15/18 10/15/18 10/15/18 07:14 11:21 17:46 WBC RBC Hgb Hct MCV MCH MCHC RDW Std Deviation RDW Coeff of Anam Plt Count MPV Sodium 140 Potassium 4.3 Chloride 114 H Carbon Dioxide 16 L Anion Gap 10.0 BUN 88 H Creatinine 7.88 H* Est Cr Clr Drug Dosing 7.7 Est GFR ( Amer) 7.6 Est GFR (Non-Af Amer) 6.5 BUN/Creatinine Ratio 11.2 Glucose 115 H POC Glucose 215 H 119 H Calcium 7.0 L Phosphorus 4.7 Magnesium 2.0 Iron 67 Transferrin 150 L Transferrin % Sat 32 Ferritin 669.9 H 10/15/18 10/16/18 10/16/18 20:09 06:05 06:05 WBC 7.16 RBC 2.48 L Hgb 7.7 L Hct 22.4 L MCV 90.3 MCH 31.0 MCHC 34.4 RDW Std Deviation 44.0 RDW Coeff of Anam 13.3 Plt Count 188 MPV 9.4 Sodium 139 Potassium 4.2 Chloride 113 H Carbon Dioxide 16 L Anion Gap 10.0 BUN 88 H Creatinine 8.14 H* Est Cr Clr Drug Dosing 7.5 Est GFR ( Amer) 7.3 Est GFR (Non-Af Amer) 6.3 BUN/Creatinine Ratio 10.9 Glucose 112 H POC Glucose 134 H Calcium 6.8 L Phosphorus Magnesium Iron Transferrin Transferrin % Sat Ferritin 10/16/18 07:34 WBC RBC Hgb Hct MCV MCH MCHC RDW Std Deviation RDW Coeff of Anam Plt Count MPV Sodium Potassium Chloride Carbon Dioxide Anion Gap BUN Creatinine Est Cr Clr Drug Dosing Est GFR ( Amer) Est GFR (Non-Af Amer) BUN/Creatinine Ratio Glucose POC Glucose 118 H Calcium Phosphorus Magnesium Iron Transferrin Transferrin % Sat Ferritin
--- NOTE | 2018-10-16 10:14 | Family Medicine Progress Note ---
Date of Service October 16, 2018 Assessment & Plan (1) ESRD (end stage renal disease): ESRD/LEEROY on CKD: - Appreciate nephro input: biopsy showing diabetic nephropathy, progressive rise in cr c/w ESRD, no obstruction on Renal US - No emergent indication for dialysis, however Cr continues to rise so need for HD still very much required. - Plan for HD next week; left arm remains swollen with concern for central stenosis. - Going for veno/fistulogram on Wednesday 10/18 - Holding TATE and ARB, avoid other nephrotoxins - As of 10/15, Cr is now >8. Pleural effusion: - CXR on 10/12 was clear with small bibasilar pleural effusion, appears to be chronic. Breath sounds clear, O2 sats OK on RA. - Likely aspect of volume overload from ESRD. - Monitor respiratory status. Anemia: - Baseline Hb is variable, as high as 10 in 06/2018, and as low as 7.3 a few days later. - On 10/16, hgb was 7.6; similar to day prior. No signs of bleeding. Likely due to CKD. Received Epo per nephro on 10/14. - Continue to monitor HTN (hypertension): - Elevated upon arrival at 197/90. Holding TATE and ARB as above. - C/w amlodipine, increased hydralazine to 50 TID, carvedilol up to 50 BID HIV (human immunodeficiency virus infection): - Reportedly is routinely on tenofovir 300mg on Wednesday/, lamivudine 100mg PO daily, dolutegravir 50mg daily, and Prezcobix (darunavir 800mg- cobicistat 150mg) 1 tablet daily; however, thought to be refusing all meds per nephro note. CD4 was 217 (in Apr 2017). - Current CD4 count pending - Discussed with patient, who reports she is [facility]; Dr[facility] Pardo called [facility] to review records. Per [facility] records, she has been taking meds, including for days she has been in the hospital, which is suspicious - Of note, patient receiving HAART meds from [facility]. They will need to be contacted mid-week for another week's worth of medicine. - Also, [facility] is not a facility that has HD on premises; may be social issue in terms of transferring to other [facility] on [place]? DM type 2 (diabetes mellitus, type 2): - A1C = 4.9 on 06/26/18, follow glucose - ISS with accuchecks, not on pharmacological treatment as outpatient SSS (sick sinus syndrome): - S/p pacemaker. HR normal so far in 70s. - Continue meds as above, stable. - No inpatient management Glaucoma: - On latanoprost. [id number] transgender person: - Continue estradiol patch, finasteride. DVT prophylaxis: Heparin 5000 Q12h CODE: Full Dispo: Awaiting venogram and HD, med/surg (2) Acute kidney injury: (3) HTN (hypertension): (4) HIV disease: (5) Hepatitis B: (6) SSS (sick sinus syndrome): (7) Pacemaker: (8) DM type 2 (diabetes mellitus, type 2): (9) Anemia: Supervising Physician Co-Signing Physician Notes I saw and examined the patient, and discussed the patient's plan with the resident with the following summary/exceptions: 62yo transgender F w/ hx of DM, HTN, HIV who presents with ESRD. Today, she is more subdued. No left arm changes. Reports no fevers/chills, chest pain, shortness of breath, abdominal pain, nausea, or vomiting. 1) ESRD - Baseline Cr ~3-4, but has actually been trending up for several months. Likely due to DM, HTN, and possibly HIV (or even tenofovir use). Plan for HD once LUE AVF gets sorted out. 2) Left arm swelling - Swelling initially noted on 10/14. LUE U/S on 10/14 showed no DVT or stenosis, but concern for a central stenosis given fistula and pacemaker in LUE. Plan for venogram on 10/[address] Hemphill. 2) HTN - Will conitnue home meds. 3) HIV - Meds obtained from [facility]. Discussed with ID who feel regimen is appropriate for her HBV/HIV co-infection. Subjective Pt reports no acute complaints this morning. Denies swelling in her legs. Denies malaise, confusion, etc. Does report that her L arm swelling is about the same if not worse. She also notes her IV site is uncomfortable being at her wrist flexure. Cardiovascular: + edema (LUE) Physical Exam Vital Signs (Past 24 Hours): Last Vital Signs Temp 36.6 C 10/16/18 07:20 Pulse 69 10/16/18 07:20 Resp 16 10/16/18 07:20 BP 183/88 H 10/16/18 07:20 Pulse Ox 96 10/16/18 07:20 Constitutional: WD/WN, vitals as above well developed, well nourished, + thin, cooperative and comfortable; no acute distress and not ill appearing Eyes: PERRL, conjunctivae normal, anicteric sclerae EOM intact bilaterally; no scleral abnormality and no corneal abnormality ENMT: external ear and nose normal, oropharynx normal Ears: no hearing impairment Mouth: oral mucous membranes not dry Neck: normal visual inspection; no tracheal deviation, no neck crepitus and neck nontender Thyroid: normal thyroid Respiratory: normal respiratory effort, lungs clear to auscultation able to speak in complete sentences; no respiratory distress, does not use accessory muscles, no cough, not tachypneic and no audible wheezes Auscultation: lungs clear to auscultation bilaterally; no rhonchi and no wheezes Cardiovascular: RRR, no murmur, no edema Rate/Rhythm: regular rate and regular rhythm Heart Sounds: normal S1 and normal S2; no gallop, no murmur and no cardiac rub Vessels: brachial pulses present and radial pulses present; no carotid bruit and no femoral bruit Extremities: normal capillary refill, + edema (LUE 2+ edema distal upper arm to hand/fingers) and + AV fistula (faint thrill/bruit over LUE upper arm avf. Incision well healed) Chest (Breasts): Chest: + pacemaker Gastrointestinal (Abdomen): normal bowel sounds, soft, nontender, no hepatosplenomegaly Inspection/Auscultation: abdomen normal to inspection and normal bowel sounds; abdomen not distended Percussion/Palpation: abdomen soft; abdomen nontender, no guarding and abdomen not rigid Musculoskeletal: no cyanosis or clubbing, extremities motor strength 5/5 Head/Neck/Chest: normocephalic, head atraumatic and neck supple; no chest tenderness Extremities: extremities normal to inspection, strength 5/5 throughout and + upper extremity abnormal to inspection (Right normal); full ROM of extremities, no cyanosis and no clubbing Skin: no rashes, warm and dry normal turgor and + dry skin; no rashes, no lesions, no ulcers, no induration, no erythema and no mottling Neurologic: moves all extremities and awake; no focal motor deficits and not confused Speech / Cognition: no expressive aphasia and no receptive aphasia Motor/Sensory: no tremor, no asterixis and no sensory deficit Cranial Nerves: EOM intact bilaterally, normal facial strength and tongue midline Psychiatric: Orientation: alert, oriented x 3, oriented to person, oriented to place, oriented to time and cooperative Apperance: appropriately dressed, appropriately groomed and appeared stated age; not disheveled Eye Contact: good eye contact Affect: euthymic affect and + depressed affect Thought Process: goal directed thought process, linear/logical thought process and clear/coherent thought process Cognition: recent memory grossly intact, remote memory grossly intact, attention grossly intact and language grossly intact Estimated Intelligence: consistent with education level Results & Data Laboratory Results 10/16/18 10/16/18 10/16/18 Range/Units 07:34 06:05 06:05 WBC 7.16 (4.8-10.8) K/uL RBC 2.48 L (4.7-6.1) M/uL Hgb 7.7 L (14.0-18.0) g/dL Hct 22.4 L (42-52) % MCV 90.3 (80-100) fL MCH 31.0 (25-34) pg MCHC 34.4 (32-36) g/dL RDW Std Deviation 44.0 (36.4-46.3) fL RDW Coeff of Anam 13.3 (11.5-14.5) % Plt Count 188 (130-400) K/uL MPV 9.4 (7.4-10.4) fL Sodium 139 (136-145) mmol/L Potassium 4.2 (3.5-5.1) mmol/L Chloride 113 H (98-107) mmol/L Carbon Dioxide 16 L (21-32) mmol/L Anion Gap 10.0 (3-11) BUN 88 H (7-18) mg/dl Creatinine 8.14 H* (0.6-1.4) mg/dl Est Cr Clr Drug Dosing 7.5 ml/min Est GFR ( Amer) 7.3 Est GFR (Non-Af Amer) 6.3 BUN/Creatinine Ratio 10.9 (10-20) Glucose 112 H (70-99) mg/dl POC Glucose 118 H (70-99) Calcium 6.8 L (8.5-10.1) mg/dl 10/15/18 10/15/18 10/15/18 Range/Units 20:09 17:46 11:21 WBC (4.8-10.8) K/uL RBC (4.7-6.1) M/uL Hgb (14.0-18.0) g/dL Hct (42-52) % MCV (80-100) fL MCH (25-34) pg MCHC (32-36) g/dL RDW Std Deviation (36.4-46.3) fL RDW Coeff of Anam (11.5-14.5) % Plt Count (130-400) K/uL MPV (7.4-10.4) fL Sodium (136-145) mmol/L Potassium (3.5-5.1) mmol/L Chloride (98-107) mmol/L Carbon Dioxide (21-32) mmol/L Anion Gap (3-11) BUN (7-18) mg/dl Creatinine (0.6-1.4) mg/dl Est Cr Clr Drug Dosing ml/min Est GFR ( Amer) Est GFR (Non-Af Amer) BUN/Creatinine Ratio (10-20) Glucose (70-99) mg/dl POC Glucose 134 H 119 H 215 H (70-99) Calcium (8.5-10.1) mg/dl Medications Administered Current Inpatient Medications Acetaminophen (Tylenol) 650 mg PO Q4H PRN PRN Reason: Pain or Fever Stop: 11/12/18 21:09 Last Admin: 10/14/18 21:14 Dose: 650 mg Documented by: Amlodipine Besylate (Norvasc) 10 mg PO DAILY [facility] Stop: 11/12/18 08:59 Last Admin: 10/16/18 08:44 Dose: 10 mg Documented by: Benzonatate (Tessalon Perle) 100 mg PO TID PRN PRN Reason: cough Stop: 11/11/18 20:06 Last Admin: 10/13/18 00:50 Dose: 100 mg Documented by: Carvedilol (Coreg) 50 mg PO BID [facility] Stop: 11/14/18 20:59 Last Admin: 10/16/18 08:43 Dose: 50 mg Documented by: Darunavir/Cobicistat (Prezcobix) 1 ea PO DAILY [facility] Stop: 11/14/18 08:59 Last Admin: 10/16/18 08:46 Dose: Not Given Documented by: Dextrose (Dextrose 50%) 25 - 50 ml IV UD PRN; Protocol PRN Reason: Hypoglycemia Protocol Stop: 11/11/18 20:44 Docusate Sodium (Colace) 200 mg PO DAILY [facility] Stop: 11/12/18 08:59 Last Admin: 10/16/18 08:44 Dose: 200 mg Documented by: Dolutegravir Sodium (Tivicay) 1 ea PO DAILY [facility] Stop: 11/14/18 08:59 Last Admin: 10/16/18 08:47 Dose: Not Given Documented by: Finasteride (Proscar) 5 mg PO DAILY [facility] Stop: 11/12/18 08:59 Last Admin: 10/16/18 08:45 Dose: 5 mg Documented by: Glucagon (Glucagen) 1 mg IM UD PRN; Protocol PRN Reason: Hypoglycemia Protocol Stop: 11/11/18 20:44 Glucose (Glucose 40%) 15 - 30 gm PO UD PRN; Protocol PRN Reason: Hypoglycemia Protocol Stop: 11/11/18 20:44 Glucose (Dex4 Glucose) 4 - 8 tabs PO UD PRN; Protocol PRN Reason: Hypoglycemia Protocol Stop: 11/11/18 20:44 Heparin Sodium (Porcine) (Heparin Sodium (Porcine)) 5,000 units SQ Q12 [facility] Stop: 11/11/18 21:59 Last Admin: 10/16/18 08:48 Dose: 5,000 units Documented by: Hydralazine HCl (Hydralazine Hcl) 5 mg IV Q8H PRN PRN Reason: SBP > 175 Stop: 11/11/18 20:06 Last Admin: 10/13/18 13:33 Dose: 5 mg Documented by: Hydralazine HCl (Apresoline) 50 mg PO TID [facility] Stop: 11/14/18 13:59 Last Admin: 10/16/18 08:44 Dose: 50 mg Documented by: Insulin Aspart (Novolog Flexpen) 0 units SC ACHS [facility] Stop: 11/11/18 20:59 Last Admin: 10/16/18 08:48 Dose: Not Given Documented by: Lamivudine (Epivir Hbv) 1 ea PO DAILY [facility] Stop: 11/14/18 08:59 Last Admin: 10/16/18 08:46 Dose: Not Given Documented by: Latanoprost (Xalatan Oph) 1 drops OP HS [facility] Stop: 11/11/18 20:59 Last Admin: 10/15/18 19:36 Dose: 1 drops Documented by: Menthol (Nice) 1 jonathan BUCCAL PRN PRN PRN Reason: Cough Stop: 11/12/18 02:11 Miscellaneous (Carbohydrates For Hypoglycemia) 15 - 30 gm PO UD PRN PRN Reason: Hypoglycemia Treatment Stop: 11/11/18 20:44 Tenofovir 300 Mg ( Viread) ~ Patient's Own Med 1 ea PO MoTh@0900 [facility] Stop: 11/13/18 08:59 Last Admin: 10/14/18 21:10 Dose: 300 mg Documented by: Ondansetron HCl (Zofran) 4 mg IV Q4H PRN PRN Reason: Nausea And Vomiting Stop: 11/11/18 20:06 Ondansetron HCl (Zofran) 4 mg IV Q4H PRN PRN Reason: Nausea Stop: 11/14/18 07:34 Rosuvastatin Calcium (Crestor) 10 mg PO DAILY [facility] Stop: 11/12/18 08:59 Last Admin: 10/16/18 08:45 Dose: 10 mg Documented by: Sodium Bicarbonate (Sodium Bicarbonate) 1,300 mg PO TID [facility] Stop: 11/14/18 13:59 Last Admin: 10/16/18 08:45 Dose: 1,300 mg Documented by: Vitamin B Complex/Folic Acid (Nephrocaps) 1 cap PO DAILY [facility] Stop: 11/12/18 08:59 Last Admin: 10/16/18 08:44 Dose: 1 cap Documented by: Resident Activity Tracking Resident Involvement: Resident Care Provided Care Provided: Adult Hospital Medicine (1) Anemia Anemia type: unspecified type Qualified Code(s): D64.9 - Anemia, unspecified (2) HTN (hypertension) Hypertension type: unspecified Qualified Code(s): I10 - Essential (primary) hypertension
[2018-10-16] MEDS: LATANOPROST 0.005% OP SOLN 2.5 ML BTL OP SCH (21:09)
[2018-10-17 05:55] LABS: Hematocrit (blood only) 22.9 % (42-52); Hemoglobin 7.9 g/dL (14.0-18.0); Mean Corpuscular Hgb Conc 34.5 g/dL (32-36); Mean Corpuscular Volume 90.2 fL (80-100); Mean Platelet Volume 9.4 fL (7.4-10.4); Platelet Count 207 K/uL (130-400); RDW Coefficient of Variation 13.4 % (11.5-14.5); RDW Standard Deviation 44.3 fL (36.4-46.3); Red Blood Count 2.54 M/uL (4.7-6.1); White Blood Count 6.96 K/uL (4.8-10.8)
[2018-10-17 06:38] LABS: Albumin Level 1.9 gm/dl (3.4-5.0); BUN Creatinine Ratio 10.7 (10-20); Calcium 6.9 mg/dl (8.5-10.1); Creatinine Clr Calc Pharmacy 7.4 ml/min; Est GFR (African American) 7.2; Est GFR (Non-African American) 6.2; Phosphorus 5.1 mg/dl (2.5-4.9); Potassium 4.1 mmol/L (3.5-5.1)
[2018-10-17] MEDS: INSULIN ASPART 100 UNITS/ML 3 ML PEN SC SCH ×4 (08:40→21:14)
[2018-10-17] MEDS: AMLODIPINE BESYLATE 5 MG TAB PO SCH (08:41)
[2018-10-17] MEDS: NEPHROCAPS PO SCH (08:41)
[2018-10-17] MEDS: SODIUM BICARBONATE 650 MG TAB PO SCH ×3 (08:41→21:37)
[2018-10-17] MEDS: ROSUVASTATIN CALCIUM 10 MG TAB PO SCH (08:42)
[2018-10-17] MEDS: FINASTERIDE 5 MG TAB PO SCH (08:42)
[2018-10-17] MEDS: CARVEDILOL 25 MG TAB PO SCH ×2 (08:42→21:38)
[2018-10-17] MEDS: HEPARIN SOD 5,000 UNIT/0.5 ML VIAL SQ SCH ×2 (08:43→21:37)
[2018-10-17] MEDS: LAMIVUDINE 100 MG PO SCH (08:45)
[2018-10-17] MEDS: TENOFOVIR 300 MG PO SCH (08:46)
[2018-10-17] MEDS: TIVICAY 50 MG PO SCH (08:46)
[2018-10-17] MEDS: PREZCOBIX PO SCH (08:46)
[2018-10-17] MEDS: DOCUSATE SODIUM 100 MG CAP PO SCH (08:53)
--- NOTE | 2018-10-17 09:43 | Nephrology Progress Note ---
Date of Service October 17, 2018 Assessment & Plan (1) ESRD (end stage renal disease): -- Due to biopsy confirmed diabetic nephropathy. -- Recent progressive rise in creatinine c/w ESRD. -- No emergent indication for dialysis today. Patient aware that starting dialysis early next week following fistulogram may be appropriate. -- Continue NaHCO3 1300 mg TID today for metabolic acidosis. -- AVF mature for use with good thrill and bruit. L arm has developed significant swelling concerning for central venous stenosis. No clot appreciated on venous duplex. Fistulogram scheduled for Wednesday by Dr. Hemphill. (2) HIV disease: -- No adjustment in medications is necessary at this time based on change in kidney function. (3) HTN (hypertension): -- Improved. Continue amlodipine 10 mg daily, Coreg 50 mg BID and hydralazine 50 mg TID. -- Home dose of Torsemide has been held but may be restarted as needed. (4) Anemia: -- No signs of active bleeding. -- Iron profile acceptable. -- Epogen 4,000 U SQ given 10/14/18. Subjective Miss Dash was seen & examined in her hospital room this morning. Left arm remains swollen. She denies L arm pain, chest pain, palpitations, or dyspnea. She voices no new medical concerns at this time. Physical Exam Vital Signs (Past 24 Hours): Last Vital Signs Temp 36.9 C 10/17/18 07:47 Pulse 70 10/17/18 07:47 Resp 16 10/17/18 07:47 BP 174/83 H 10/17/18 07:47 Pulse Ox 97 10/17/18 07:47 Eyes: PERRL, conjunctivae normal, anicteric sclerae ENMT: external ear and nose normal, oropharynx normal Neck: trachea midline, no thyromegaly Respiratory: normal respiratory effort, lungs clear to auscultation Cardiovascular: Rate/Rhythm: regular rate and regular rhythm Heart Sounds: no murmur Extremities: + AV fistula (+ bruit. L arm swollen) Gastrointestinal (Abdomen): normal bowel sounds, soft, nontender, no hepat osplenomegaly Musculoskeletal: no cyanosis or clubbing, extremities motor strength 5/5
[2018-10-17] MEDS: ONDANSETRON INJ 2 MG/ML 2 ML VIAL IV PRN ×2 (14:33→19:31)
--- NOTE | 2018-10-17 15:22 | Family Medicine Progress Note ---
Date of Service October 17, 2018 Assessment & Plan (1) ESRD (end stage renal disease): 62-year-old female with a past medical history of diabetes, hypertension, HIV, chronic kidney disease presents with end-stage renal disease. Her baseline creatinine is 3-4. Patient is a prisoner from [facility] found to have a greater than 8 and was subsequently brought to the hospital for evaluation. End-stage renal diseaseAKI on CKD Nephro following, appreciate recommendations No indication for emergent dialysisdialysis will be coordinated in the outpatient setting. Discussed with guard from [facility] who confirms that they will be able to coordinate HD. Plan is to begin hemodialysis next week Edema of the left upper extremity Venous Doppler of the left upper extremity did not show any signs of clots Vascular surgery consultedveno/fistulogram planned for tomorrow to evaluate for central stenosis Holding patient's TATE Anemia in the setting of chronic kidney disease Received Epogen on 10/14/2018 No signs of acute blood loss Hypertension Continue Coreg, hydralazine, amlodipine HIV CD4 count is currently pending Patient admits to being noncompliant on medications. States noncompliance was because he was isolating himself at the long-term because of URI and unable to get his medications Sick sinus syndrome Status post pacemaker, continue to monitor heart rates Glaucoma Continue latanoprost Transgender Continue estradiol patch, finasteride DVT prophylaxis Heparin 5000 twice daily Code full (2) Hyperlipidemia: (3) Hepatitis B: (4) Pleural effusion: (5) HTN (hypertension): (6) Acute kidney injury: (7) Anemia: (8) Chronic kidney disease: (9) Dehydration: (10) HIV disease: (11) Glaucoma: (12) DVT prophylaxis: (13) Hyperkalemia: (14) Diabetic nephropathy: Supervising Physician Co-Signing Physician Notes Resident Physician Supervision Note: I independently interviewed and examined the patient and verified the read history and physical, reviewed labs and image studies, discussed the case with the resident Dr. Reilly and agree with the findings and care plan. Subjective 62-year-old female history of diabetes, hypertension, HIV presents to [facility] with end-stage renal disease, creatinine greater than 8. Today the patient has no acute complaints. She states that the swelling in her left arm has remained stable. Patient is tolerating regular diet. Review of systems Constitutional; no fevers, chills, night sweats Chest; no chest pain, no palpitations, no shortness of breath GI; no abdominal pain, no nausea/vomiting/diarrhea Physical Exam Vital Signs (Past 24 Hours): Last Vital Signs Temp 36.9 C 10/17/18 07:47 Pulse 70 10/17/18 07:47 Resp 16 10/17/18 07:47 BP 174/83 H 10/17/18 07:47 Pulse Ox 97 10/17/18 07:47 Constitutional: WD/WN, vitals as above Eyes: PERRL, conjunctivae normal, anicteric sclerae ENMT: external ear and nose normal, oropharynx normal Neck: trachea midline, no thyromegaly Respiratory: normal respiratory effort, lungs clear to auscultation Cardiovascular: Left upper extremity edema Gastrointestinal (Abdomen): normal bowel sounds, soft, nontender, no hepatosplenomegaly Musculoskeletal: no cyanosis or clubbing, extremities motor strength 5/5 Skin: no rashes, warm and dry Lymphatic: no cervical or axillary lymphadenopathy Results & Data Laboratory Results Laboratory Last Values WBC 6.96 K/uL (4.8-10.8) 10/17/18 05:43 RBC 2.54 M/uL (4.7-6.1) L 10/17/18 05:43 Hgb 7.9 g/dL (14.0-18.0) L 10/17/18 05:43 Hct 22.9 % (42-52) L 10/17/18 05:43 MCV 90.2 fL (80-100) 10/17/18 05:43 MCH 31.1 pg (25-34) 10/17/18 05:43 MCHC 34.5 g/dL (32-36) 10/17/18 05:43 RDW Std Deviation 44.3 fL (36.4-46.3) 10/17/18 05:43 RDW Coeff of Anam 13.4 % (11.5-14.5) 10/17/18 05:43 Plt Count 207 K/uL (130-400) 10/17/18 05:43 MPV 9.4 fL (7.4-10.4) 10/17/18 05:43 PT 10.9 Seconds (9.0-12.0) 10/12/18 17:35 INR 1.1 (0.9-1.1) 10/12/18 17:35 Sodium 139 mmol/L (136-145) 10/17/18 05:43 Potassium 4.1 mmol/L (3.5-5.1) 10/17/18 05:43 Chloride 112 mmol/L (98-107) H 10/17/18 05:43 Carbon Dioxide 17 mmol/L (21-32) L 10/17/18 05:43 Anion Gap 10.0 (3-11) 10/17/18 05:43 BUN 88 mg/dl (7-18) H 10/17/18 05:43 Creatinine 8.23 mg/dl (0.6-1.4) H* 10/17/18 05:43 Est Cr Clr Drug Dosing 7.4 ml/min 10/17/18 05:43 Est GFR ( Amer) 7.2 10/17/18 05:43 Est GFR (Non-Af Amer) 6.2 10/17/18 05:43 BUN/Creatinine Ratio 10.7 (10-20) 10/17/18 05:43 Glucose 92 mg/dl (70-99) 10/17/18 05:43 POC Glucose 171 (70-99) H 10/17/18 11:48 Calcium 6.9 mg/dl (8.5-10.1) L 10/17/18 05:43 Phosphorus 5.1 mg/dl (2.5-4.9) H 10/17/18 05:43 Magnesium 2.0 mg/dl (1.8-2.4) 10/15/18 07:14 Iron 67 mcg/dl (35-175) 10/15/18 07:14 Transferrin 150 mg/dl (200-360) L 10/15/18 07:14 Transferrin % Sat 32 % (20-50) 10/15/18 07:14 Ferritin 669.9 ng/ml (8-388) H 10/15/18 07:14 Total Bilirubin 0.3 mg/dl (0.2-1) 10/14/18 05:08 AST 14 U/L (15-37) L 10/14/18 05:08 ALT 16 U/L (12-78) 10/14/18 05:08 Alkaline Phosphatase 70 U/L (45-117) 10/14/18 05:08 Total Protein 6.7 gm/dl (6.4-8.2) 10/14/18 05:08 Albumin 1.9 gm/dl (3.4-5.0) L 10/17/18 05:43 Globulin 4.9 gm/dl (2.5-4.0) H 10/14/18 05:08 Albumin/Globulin Ratio 0.4 (0.9-2) L 10/14/18 05:08 Urine Color Yellow 10/12/18 20:21 Urine Appearance Clear (Clear) 10/12/18 20:21 Urine pH 7.5 (4.5-7.5) 10/12/18 20:21 Ur Specific Grover 1.019 (1.000-1.030) 10/12/18 20:21 Urine Protein 4+ (Negative) H 10/12/18 20:21 Urine Glucose (UA) 1+ (Negative) H 10/12/18 20:21 Urine Ketones Negative (Negative) 10/12/18 20:21 Urine Blood Negative (Negative) 10/12/18 20:21 Urine Nitrite Negative (Negative) 10/12/18 20:21 Urine Bilirubin Negative (Negative) 10/12/18 20:21 Urine Urobilinogen Negative (Negative) 10/12/18 20:21 Ur Leukocyte Esterase Negative (Negative) 10/12/18 20:21 Urine WBC (Auto) 1-5 /hpf (0-5) 10/12/18 20:21 Urine RBC (Auto) 0-4 /hpf (0-4) 10/12/18 20:21 U Hyaline Cast (Auto) 0 /lpf (0-5) 10/12/18 20:21 U Epithel Cells (Auto) 20-30 /lpf (0-5) H 10/12/18 20:21 Urine Bacteria (Auto) Negative (Negative) 10/12/18 20:21 Nasal Screen MRSA (PCR) Negative (Negative) 10/12/18 21:08 Hep Bs Antigen Neg (Neg) 10/13/18 10:46 Hep Bs Antibody Non-Immune 10/13/18 10:46 Hep Bs Antibody, Quant 5.51 mIU/mL (>or=10mIU/mL Immune) L 10/13/18 10:46 Resident Activity Tracking Resident Involvement: Resident Care Provided Care Provided: Adult Hospital Medicine (1) Anemia Anemia type: unspecified type Qualified Code(s): D64.9 - Anemia, unspecified (2) Chronic kidney disease Chronic kidney disease stage: unspecified stage Qualified Code(s): N18.9 - Chronic kidney disease, unspecified (3) HTN (hypertension) Hypertension type: unspecified Qualified Code(s): I10 - Essential (primary) hypertension
[2018-10-17] MEDS ORDERED: POLYETHYLENE (MIRALAX) 17 GM PACK PO STA (15:56)
[2018-10-17] MEDS: LATANOPROST 0.005% OP SOLN 2.5 ML BTL OP SCH (21:38)
[2018-10-18] MEDS: ONDANSETRON INJ 2 MG/ML 2 ML VIAL IV PRN ×2 (04:53→19:04)
[2018-10-18] MEDS ORDERED: CLINDAMYCIN 600 MG/54 ML BAG IV SCH (06:00)
[2018-10-18 07:02] LABS: Hematocrit (blood only) 22.6 % (42-52); Hemoglobin 7.6 g/dL (14.0-18.0); Mean Corpuscular Hgb Conc 33.6 g/dL (32-36); Mean Corpuscular Volume 91.9 fL (80-100); Mean Platelet Volume 9.5 fL (7.4-10.4); Platelet Count 203 K/uL (130-400); RDW Coefficient of Variation 13.9 % (11.5-14.5); RDW Standard Deviation 45.9 fL (36.4-46.3); Red Blood Count 2.46 M/uL (4.7-6.1); White Blood Count 5.39 K/uL (4.8-10.8)
[2018-10-18 07:47] LABS: BUN Creatinine Ratio 10.9 (10-20); Calcium 7.1 mg/dl (8.5-10.1); Creatinine Clr Calc Pharmacy 7.3 ml/min; Est GFR (African American) 7.1; Est GFR (Non-African American) 6.1; Phosphorus 5.5 mg/dl (2.5-4.9); Potassium 4.4 mmol/L (3.5-5.1)
[2018-10-18] MEDS ORDERED: LIDOCAINE HCL 1% 20 ML VIAL ONE (08:14)
[2018-10-18] MEDS ORDERED: fentaNYL citrate 100 MCG/2 ML VIAL ONE ×2 (08:15→09:17)
[2018-10-18] MEDS ORDERED: MIDAZOLAM HCL 1 MG/ML 2ML VIAL ONE (08:15)
--- NOTE | 2018-10-18 08:22 | History & Physical Bridge Note ---
Date of Service October 18, 2018 History & Physical Bridge Note Patient for fistulogram with possible intervention today. I have discussed the risks options and benefits of the procedure with the patient. The patient understands the risks options and benefits and agrees to the procedure. I have examined the patient, reviewed the History & Physical and in the interval since the performance of the History & Physical I have noted the following changes of clinical significance: no changes noted
--- NOTE | 2018-10-18 08:23 | Pre Anesthesia Assessment ---
Date of Service October 18, 2018 Pre Sedation Assessment Vital Signs Temp Pulse Resp BP Pulse Ox 10/18/18 08:07 36.7 C 72 18 151/73 H 97 10/18/18 07:25 36.8 C 70 18 147/69 H 95 10/17/18 16:01 36.4 C L 70 16 132/65 96 Cardiovascular + regular rate and + regular rhythm Respiratory normal respiratory effort, lungs clear to auscultation Pre-Sedation Airway Assessment Smoking Status: Never smoker Hx Sleep Apnea: No Short, Thick Neck: No Thyromental Distance: > or= 3.5 Finger Breadths Oral Cavity: + WNL Mallampati Class: I ASA: ASA3 NPO Status Date of Last Intake of Fluids: 10/18/18 Time of Last Intake of Fluids: 04:00 Date of Last Intake of Solid Food: 10/17/18 Time of Last Intake of Solid Foods: 20:00 Procedure Planning Contraindications for Sedation: none Current Medications Reviewed: Yes Notes The planned sedation has been discussed with the patient. Informed Consent was obtained. I have identified the patient, determined the appropriateness of sedation and have assessed the patient immediately prior to the procedure. All medicine(s) and interventions are by my order.
[2018-10-18] MEDS: INSULIN ASPART 100 UNITS/ML 3 ML PEN SC SCH ×4 (08:43→21:46)
[2018-10-18] MEDS ORDERED: OPTIRAY 300 IV PRN (09:56)
--- NOTE | 2018-10-18 10:07 | Post Operative Brief Note ---
Immediate Post Op Note v1 Date of Surgery October 18, 2018 Pre & Post Diagnosis Operation Date: 10/18/18 08:30 Pre-Op Diagnosis: left arm swelling Post-Op Diagnosis: left arm swelling Procedure Operation Date: 10/18/18 08:30 Actual Procedures p Left Arm Fistulogram, Percutaneous Transluminal Angioplasty Venous, Central and Peripheral, Left upper extremity venogram, Moderate Concious Sedation 0853 to 1000(Left) - Daquan Hemphill MD Surgeon Daquan Hemphill MD Account Advisor MD Amanda Estimated Blood Loss 3 Findings Consistent with Post-Op Diagnosis Anesthesia Type RN Sedation Disposition Accompanied Patient To Recovery: No Disposition: Recovery Room
--- NOTE | 2018-10-18 10:08 | Communication Note ---
Date of Service: October 18, 2018 Small basilic vein, no central stenosis seen. Will need to ligate the fistula
[2018-10-18] MEDS: SODIUM BICARBONATE 650 MG TAB PO SCH ×3 (10:43→21:47)
[2018-10-18] MEDS: CARVEDILOL 25 MG TAB PO SCH ×2 (10:50→21:46)
[2018-10-18] MEDS: HEPARIN SOD 5,000 UNIT/0.5 ML VIAL SQ SCH ×2 (10:51→21:46)
[2018-10-18] MEDS: AMLODIPINE BESYLATE 5 MG TAB PO SCH (10:51)
--- NOTE | 2018-10-18 10:51 | Nephrology Progress Note ---
Date of Service October 18, 2018 Assessment & Plan (1) ESRD (end stage renal disease): -- Biopsy confirmed diabetic nephropathy. -- Volume status & electrolyte balance remain acceptable. No acute indication for HD -- Continue NaHCO3 1300 mg TID today for metabolic acidosis. -- Surgical note reviewed: no central stenosis. Small basilic vein. May need AVF ligation. -- Await further input from Vascular Surgery. Suspect patient will require IJ THC and new AVF creation (2) HIV disease: -- No adjustment in medications is necessary at this time based on change in kidney function. (3) HTN (hypertension): -- Improved. Continue amlodipine 10 mg daily, Coreg 50 mg BID and hydralazine 50 mg TID. -- Home dose of Torsemide has been held but may be restarted as needed. (4) Anemia: -- No signs of active bleeding. -- Iron profile acceptable. -- Epogen 4,000 U SQ given 10/14/18. Subjective Miss Dash was seen & examined in her hospital room this morning. She has just returned from vascular imaging. Left arm remains swollen. Surgical note indicates small basilic vein and need to ligate AVF. Patient remains lethargic due to anesthesia. Physical Exam Vital Signs (Past 24 Hours): Last Vital Signs Temp 36.7 C 10/18/18 08:07 Pulse 70 10/18/18 10:00 Resp 16 10/18/18 10:00 BP 125/62 10/18/18 10:00 Pulse Ox 93 10/18/18 10:00 Eyes: PERRL, conjunctivae normal, anicteric sclerae ENMT: external ear and nose normal, oropharynx normal Neck: trachea midline, no thyromegaly Respiratory: normal respiratory effort, lungs clear to auscultation Cardiovascular: Rate/Rhythm: regular rate and regular rhythm Heart Sounds: no murmur Extremities: + AV fistula (+ bruit. L arm swollen) Gastrointestinal (Abdomen): normal bowel sounds, soft, nontender, no hepatosplenomegaly Musculoskeletal: no cyanosis or clubbing, extremities motor strength 5/5 Results & Data Laboratory Results Laboratory Tests 10/17/18 10/17/18 10/18/18 05:43 05:43 06:27 WBC 6.96 5.39 Hgb 7.9 L 7.6 L Hct 22.9 L 22.6 L Plt Count 207 203 Sodium 139 Potassium 4.1 Chloride 112 H Carbon Dioxide 17 L BUN 88 H Creatinine 8.23 H* Glucose 10/18/18 06:27 WBC Hgb Hct Plt Count Sodium 138 Potassium 4.4 Chloride 111 H Carbon Dioxide 20 L BUN 91 H Creatinine 8.28 H* Glucose 103 H
[2018-10-18] MEDS: DOCUSATE SODIUM 100 MG CAP PO SCH (10:52)
[2018-10-18] MEDS: NEPHROCAPS PO SCH (10:52)
[2018-10-18] MEDS: TIVICAY 50 MG PO SCH (10:53)
[2018-10-18] MEDS: LAMIVUDINE 100 MG PO SCH (10:53)
[2018-10-18] MEDS: PREZCOBIX PO SCH (10:53)
[2018-10-18] MEDS: ROSUVASTATIN CALCIUM 10 MG TAB PO SCH (10:53)
[2018-10-18] MEDS: FINASTERIDE 5 MG TAB PO SCH (10:53)
--- NOTE | 2018-10-18 12:43 | Operative Report ---
DATE OF OPERATION: 10/18/2018 PREOPERATIVE DIAGNOSIS: Left upper extremity swelling, status post arteriovenous fistula. POSTOPERATIVE DIAGNOSIS: Left upper extremity swelling, status post arteriovenous fistula. PROCEDURES PERFORMED: Ultrasound-guided left basilic vein access, left upper extremity venogram, balloon angioplasty of left subclavian vein with a 10 x 40 mm balloon, balloon angioplasty of left basilic vein with a 6 x 100 mm balloon, conscious sedation (0615-1985). SURGEON: Dr. Daquan Hemphill. DISTRIBUTED ENERGY SYSTEMS CONSULTANT: Dr. Ericka Odom. ANESTHESIA: Moderate sedation plus local. ESTIMATED BLOOD LOSS: 5 mL. COMPLICATIONS: None. INDICATIONS: Stacey Dash is a 62-year-old person with chronic kidney disease. She is not currently on dialysis. She underwent creation of a left arm AV fistula at an outside institution. She subsequently developed left forearm swelling. For this reason, she was recommended to undergo a venogram. The risks, benefits and alternatives were discussed with the patient and she consented to the procedure. DESCRIPTION OF PROCEDURE: The patient was taken to the endovascular suite and placed in the supine position. The left forearm was prepped and draped in the usual sterile fashion. A safety timeout was performed, and the patient, procedure, and sidedness were correctly identified. Ultrasound was used to identify the left basilic vein and it appeared patent. Local anesthesia was used to anesthetize the skin overlying the left basilic vein. It was accessed with micropuncture needle and wire. This was followed by a micropuncture sheath. A left upper extremity venogram was performed and showed the basilic vein to be patent. The axillary and subclavian appeared patent as well. The angled Glidewire was passed through the basilic vein and into the deep system centrally. Angiogram was again obtained, but did not show any obvious areas of central vein stenosis. Due to concern for stenosis surrounding the patient's existing pacemaker leads, a 10 x 40 mm Conquest balloon was chosen. A 5-Bolivian sheath was upsized for a 7-Bolivian sheath and the Conquest passed centrally. It was used to venoplasty the access point of the pacemaker wires. No waist was appreciated with inflation of the balloon. The balloon was withdrawn and a venogram again obtained. This showed filling of the brachial vein in the upper arm. Due to concern for possible basilic vein stenosis, a 6 x 100 mm balloon was chosen and passed up the basilic and used to venoplasty the proximal basilic. This again did not show any significant waist. Balloon was withdrawn. Wire was then directed from the basilic vein into the deep system at the level of the mid humerus. A venogram was again obtained and showed the proximal basilic to be patent. No clear source of the left forearm swelling could be identified. The catheter, wires, and sheath were removed and manual pressure was held over the basilic vein access site for several minutes with good hemostasis. A sterile dressing was applied. The patient tolerated the procedure well and there were no immediate complications. Dr. Daquan Hemphill was present for the entire procedure. I attest to the content of the Intraoperative Record and any orders documented therein. Any exceptions are noted below. GILSON
--- NOTE | 2018-10-18 16:09 | Ultrasound Report ---
US venous mapping UE RT CLINICAL HISTORY: end stage renal disease COMPARISON STUDY: No previous studies for comparison. FINDINGS: A venous mapping study was performed. No thrombus is visualized within the right IJ, subcla vian, cephalic, basilic veins. At the proximal forearm level, the cephalic vein measured 2 mm and the basilic vein 5 mm. At the mid upper arm level, the cephalic vein measure 1 mm and the basilic 4 mm. At the distal upper arm, the ce phalic vein measure 1 mm and the basilic 3 mm. At the antecubital fossa, the cephalic measured 2 mm a nd the basilic 3 mm. At the proximal forearm, the cephalic measure 1 mm and the basilic 3 mm. At the medial forearm the cephalic measured 1 mm. In the distal forearm the cephalic measured 1 mm. IMPRESSION: No evidence of right upper extremity DVT. Venous mapping measurements as described above . Electronically signed by: Barron Alonso M.D. 10/18/2018 4:08 PM
--- NOTE | 2018-10-18 19:59 | Family Medicine Progress Note ---
Date of Service October 18, 2018 Assessment & Plan (1) Acute kidney injury: (1) ESRD (end stage renal disease): 62-year-old female with a past medical history of diabetes, hypertension, HIV, chronic kidney disease presents with end-stage renal disease. Her baseline creatinine is 3-4. Patient is a prisoner from [facility] found to have a greater than 8 and was subsequently brought to the hospital for evaluation. End-stage renal diseaseAKI on CKD Nephro following, appreciate recommendations No indication for emergent dialysisdialysis will be coordinated in the outpatient setting. Discussed with guard from [facility] who confirms that they will be able to coordinate HD. -Per vascular surgery - ? may be ligation of AVF Edema of the left upper extremity Venous Doppler of the left upper extremity did not show any signs of clots Vascular surgery consultedveno/fistulogram did not show evidence of central stenosis Holding patient's TATE Anemia in the setting of chronic kidney disease Received Epogen on 10/14/2018 No signs of acute blood loss Hypertension Continue Coreg, hydralazine, amlodipine HIV CD4 count is currently pending Patient admits to being noncompliant on medications. States noncompliance was because she was isolating herself at the nursing home because of URI and unable to get her medications Sick sinus syndrome Status post pacemaker, continue to monitor heart rates Glaucoma Continue latanoprost Transgender Continue estradiol patch, finasteride DVT prophylaxis Heparin 5000 twice daily Code full (2) HTN (hypertension): (3) Diabetic nephropathy: (4) Chronic kidney disease: (5) HIV disease: (6) Pacemaker: Supervising Physician Co-Signing Physician Notes Resident Physician Supervision Note: I independently interviewed and examined the patient and verified the read history and physical, reviewed labs and image studies, discussed the case with the resident Dr. Gillis and agree with the findings and care plan. Subjective 62-year-old female history of diabetes, hypertension, HIV presents to [facility] with end-stage renal disease, creatinine greater than 8. Today the patient has no acute complaints. She states that the swelling in her left arm has remained stable. Review of systems Constitutional; no fevers, chills, night sweats Chest; no chest pain, no palpitations, no shortness of breath GI; no abdominal pain, no nausea/vomiting/diarrhea Physical Exam Vital Signs (Past 24 Hours): Last Vital Signs Temp 36.6 C 03/12/19 18:33 Pulse 70 10/18/18 18:33 Resp 18 10/18/18 18:33 BP 132/70 10/18/18 18:33 Pulse Ox 92 10/18/18 13:30 Constitutional: WD/WN, vitals as above Eyes: PERRL, conjunctivae normal, anicteric sclerae ENMT: external ear and nose normal, oropharynx normal Neck: trachea midline, no thyromegaly Respiratory: normal respiratory effort, lungs clear to auscultation Gastrointestinal (Abdomen): normal bowel sounds, soft, nontender, no hepatosplenomegaly Musculoskeletal: Head/Neck/Chest: normocephalic and head atraumatic left upper ext edema Skin: no rashes, warm and dry Lymphatic: no cervical or axillary lymphadenopathy Results & Data Laboratory Results Laboratory Last Values WBC 5.39 K/uL (4.8-10.8) 10/18/18 06:27 RBC 2.46 M/uL (4.7-6.1) L 10/18/18 06:27 Hgb 7.6 g/dL (14.0-18.0) L 10/18/18 06:27 Hct 22.6 % (42-52) L 10/18/18 06:27 MCV 91.9 fL (80-100) 10/18/18 06:27 MCH 30.9 pg (25-34) 10/18/18 06:27 MCHC 33.6 g/dL (32-36) 10/18/18 06:27 RDW Std Deviation 45.9 fL (36.4-46.3) 10/18/18 06:27 RDW Coeff of Anam 13.9 % (11.5-14.5) 10/18/18 06:27 Plt Count 203 K/uL (130-400) 10/18/18 06:27 MPV 9.5 fL (7.4-10.4) 10/18/18 06:27 PT 10.9 Seconds (9.0-12.0) 10/12/18 17:35 INR 1.1 (0.9-1.1) 10/12/18 17:35 Sodium 138 mmol/L (136-145) 10/18/18 06:27 Potassium 4.4 mmol/L (3.5-5.1) 10/18/18 06:27 Chloride 111 mmol/L (98-107) H 10/18/18 06:27 Carbon Dioxide 20 mmol/L (21-32) L 10/18/18 06:27 Anion Gap 7.0 (3-11) 10/18/18 06:27 BUN 91 mg/dl (7-18) H 10/18/18 06:27 Creatinine 8.28 mg/dl (0.6-1.4) H* 10/18/18 06:27 Est Cr Clr Drug Dosing 7.3 ml/min 10/18/18 06:27 Est GFR ( Amer) 7.1 10/18/18 06:27 Est GFR (Non-Af Amer) 6.1 10/18/18 06:27 BUN/Creatinine Ratio 10.9 (10-20) 10/18/18 06:27 Glucose 103 mg/dl (70-99) H 10/18/18 06:27 POC Glucose 152 (70-99) H 10/18/18 17:09 Calcium 7.1 mg/dl (8.5-10.1) L 10/18/18 06:27 Phosphorus 5.5 mg/dl (2.5-4.9) H 10/18/18 06:27 Magnesium 2.0 mg/dl (1.8-2.4) 10/15/18 07:14 Iron 67 mcg/dl (35-175) 10/15/18 07:14 Transferrin 150 mg/dl (200-360) L 10/15/18 07:14 Transferrin % Sat 32 % (20-50) 10/15/18 07:14 Ferritin 669.9 ng/ml (8-388) H 10/15/18 07:14 Total Bilirubin 0.3 mg/dl (0.2-1) 10/14/18 05:08 AST 14 U/L (15-37) L 10/14/18 05:08 ALT 16 U/L (12-78) 10/14/18 05:08 Alkaline Phosphatase 70 U/L (45-117) 10/14/18 05:08 Total Protein 6.7 gm/dl (6.4-8.2) 10/14/18 05:08 Albumin 2.0 gm/dl (3.4-5.0) L 10/18/18 06:27 Globulin 4.9 gm/dl (2.5-4.0) H 10/14/18 05:08 Albumin/Globulin Ratio 0.4 (0.9-2) L 10/14/18 05:08 Urine Color Yellow 10/12/18 20:21 Urine Appearance Clear (Clear) 10/12/18 20:21 Urine pH 7.5 (4.5-7.5) 10/12/18 20:21 Ur Specific [place] 1.019 (1.000-1.030) 10/12/18 20:21 Urine Protein 4+ (Negative) H 10/12/18 20:21 Urine Glucose (UA) 1+ (Negative) H 10/12/18 20:21 Urine Ketones Negative (Negative) 10/12/18 20:21 Urine Blood Negative (Negative) 10/12/18 20:21 Urine Nitrite Negative (Negative) 10/12/18 20:21 Urine Bilirubin Negative (Negative) 10/12/18 20:21 Urine Urobilinogen Negative (Negative) 10/12/18 20:21 Ur Leukocyte Esterase Negative (Negative) 10/12/18 20:21 Urine WBC (Auto) 1-5 /hpf (0-5) 10/12/18 20:21 Urine RBC (Auto) 0-4 /hpf (0-4) 10/12/18 20:21 U Hyaline Cast (Auto) 0 /lpf (0-5) 10/12/18 20:21 U Epithel Cells (Auto) 20-30 /lpf (0-5) H 10/12/18 20:21 Urine Bacteria (Auto) Negative (Negative) 10/12/18 20:21 Nasal Screen MRSA (PCR) Negative (Negative) 10/12/18 21:08 Hep Bs Antigen Neg (Neg) 10/13/18 10:46 Hep Bs Antibody Non-Immune 10/13/18 10:46 Hep Bs Antibody, Quant 5.51 mIU/mL (>or=10mIU/mL Immune) L 10/13/18 10:46 Resident Activity Tracking Resident Involvement: Resident Care Provided Care Provided: Adult [facility] Medicine (1) Chronic kidney disease Chronic kidney disease stage: unspecified stage Qualified Code(s): N18.9 - Chronic kidney disease, unspecified (2) HTN (hypertension) Hypertension type: unspecified Qualified Code(s): I10 - Essential (primary) hypertension
[2018-10-18 20:44] LABS: LSP % Cells Analyzed CD4 25 % (30-61); LSP Absolute Ct CD4 295 cells/uL (490-1740); LSP Lymphocytes Absolute 1182 cells/uL (850-3900)
[2018-10-18] MEDS: LATANOPROST 0.005% OP SOLN 2.5 ML BTL OP SCH (21:47)
[2018-10-19] MEDS ORDERED: CLINDAMYCIN 600 MG/54 ML BAG IV SCH (06:00)
[2018-10-19 06:59] LABS: Hematocrit (blood only) 23.4 % (42-52); Hemoglobin 7.7 g/dL (14.0-18.0); Mean Corpuscular Hgb Conc 32.9 g/dL (32-36); Mean Corpuscular Volume 93.2 fL (80-100); Mean Platelet Volume 9.6 fL (7.4-10.4); Platelet Count 228 K/uL (130-400); RDW Coefficient of Variation 13.9 % (11.5-14.5); RDW Standard Deviation 46.3 fL (36.4-46.3); Red Blood Count 2.51 M/uL (4.7-6.1); White Blood Count 5.01 K/uL (4.8-10.8)
[2018-10-19 07:53] LABS: BUN Creatinine Ratio 10.8 (10-20); Creatinine Clr Calc Pharmacy 6.9 ml/min; Est GFR (African American) 6.5; Est GFR (Non-African American) 5.6; Potassium 4.7 mmol/L (3.5-5.1)
[2018-10-19] MEDS: INSULIN ASPART 100 UNITS/ML 3 ML PEN SC SCH ×4 (08:31→21:05)
[2018-10-19] MEDS: HEPARIN SOD 5,000 UNIT/0.5 ML VIAL SQ SCH ×2 (08:32→21:04)
[2018-10-19] MEDS: FINASTERIDE 5 MG TAB PO SCH (08:32)
[2018-10-19] MEDS: NEPHROCAPS PO SCH (08:32)
[2018-10-19] MEDS: AMLODIPINE BESYLATE 5 MG TAB PO SCH (08:32)
[2018-10-19] MEDS: SODIUM BICARBONATE 650 MG TAB PO SCH (08:32)
[2018-10-19] MEDS: CARVEDILOL 25 MG TAB PO SCH ×2 (08:32→21:03)
[2018-10-19] MEDS: ROSUVASTATIN CALCIUM 10 MG TAB PO SCH (08:32)
[2018-10-19] MEDS: ONDANSETRON INJ 2 MG/ML 2 ML VIAL IV PRN ×2 (08:33→13:09)
[2018-10-19] MEDS: DOCUSATE SODIUM 100 MG CAP PO SCH (08:39)
[2018-10-19] MEDS: LAMIVUDINE 100 MG PO SCH (08:40)
[2018-10-19] MEDS: PREZCOBIX PO SCH (08:40)
[2018-10-19] MEDS: TIVICAY 50 MG PO SCH (08:40)
[2018-10-19] MEDS ORDERED: EPOETIN ALFA 10,000 UNITS/ML VIAL IV ONE (09:28)
[2018-10-19] MEDS ORDERED: SODIUM CHLORIDE 0.9% 1000ML 1,000 ML IV PRN (09:28)
--- NOTE | 2018-10-19 11:03 | Nephrology Progress Note ---
Date of Service October 19, 2018 Assessment & Plan (1) ESRD (end stage renal disease): -- Biopsy confirmed diabetic nephropathy. -- Surgical note reviewed: no central stenosis. Small basilic vein. May need AVF ligation. -- Plan IJ THC this afternoon followed by 1st run HD. Orders have been entered into EMR and HD RN notified (2) HIV disease: -- No adjustment in medications is necessary at this time based on change in kidney function. (3) HTN (hypertension): -- Improved. Continue amlodipine 10 mg daily, Coreg 50 mg BID and hydralazine 50 mg TID. -- Home dose of Torsemide has been held but may be restarted as needed. (4) Anemia: -- No signs of active bleeding. -- Iron profile acceptable. -- Epogen 4,000 U SQ given 10/14/18. Subjective Miss Dash was seen & examined in her hospital room this morning. Her left arm remains swollen. Surgical note indicates small basilic vein and need to li gate AVF. She is scheduled for IJ THC this afternoon Physical Exam Vital Signs (Past 24 Hours): Last Vital Signs Temp 36.7 C 10/19/18 07:13 Pulse 69 10/19/18 07:13 Resp 18 10/19/18 07:13 BP 147/69 H 10/19/18 07:13 Pulse Ox 93 10/19/18 07:13 Eyes: PERRL, conjunctivae normal, anicteric sclerae ENMT: external ear and nose normal, oropharynx normal Neck: trachea midline, no thyromegaly Respiratory: normal respiratory effort, lungs clear to auscultation Cardiovascular: Rate/Rhythm: regular rate and regular rhythm Heart Sounds: no murmur Extremities: + AV fistula (+ bruit. L arm swollen) Gastrointestinal (Abdomen): normal bowel sounds, soft, nontender, no hepatosplenomegaly Musculoskeletal: no cyanosis or clubbing, extremities motor strength 5/5
--- NOTE | 2018-10-19 12:42 | History & Physical Bridge Note ---
Date of Service October 19, 2018 History & Physical Bridge Note Patient for insertion of permcath today. I have discussed the risks options and benefits of the procedure with the patient. The patient understands the risks options and benefits and agrees to the procedure. I have examined the patient, reviewed the History & Physical and in the interval since the performance of the History & Physical I have noted the following changes of clinical significance: no changes noted
[2018-10-19] MEDS ORDERED: HEPARIN SOD (PORCINE) 5,000 UNITS/ML VIAL ONE (12:48)
[2018-10-19] MEDS ORDERED: fentaNYL citrate 100 MCG/2 ML VIAL ONE (12:48)
[2018-10-19] MEDS ORDERED: MIDAZOLAM HCL 1 MG/ML 2ML VIAL ONE (12:48)
[2018-10-19] MEDS ORDERED: LIDOCAINE HCL 1% 20 ML VIAL ONE (12:48)
--- NOTE | 2018-10-19 13:04 | Pre Anesthesia Assessment ---
Date of Service October 19, 2018 Pre Sedation Assessment Vital Signs Temp Pulse Resp BP Pulse Ox 10/19/18 12:45 36.6 C 74 16 137/64 95 10/19/18 07:13 36.7 C 69 18 147/69 H 93 10/19/18 00:09 36.1 C L 69 18 129/66 90 10/18/18 18:33 36.6 C 70 18 132/70 10/18/18 14:30 36.7 C 68 16 132/70 10/18/18 13:30 71 16 122/63 92 Cardiovascular + regular rate and + regular rhythm Respiratory normal respiratory effort, lungs clear to auscultation Pre-Sedation Airway Assessment Smoking Status: Never smoker Hx Sleep Apnea: No Short, Thick Neck: No Thyromental Distance: > or= 3.5 Finger Breadths Oral Cavity: + WNL Mallampati Class: I ASA: ASA4 NPO Status Date of Last Intake of Fluids: 10/18/18 Time of Last Intake of Fluids: 23:59 Date of Last Intake of Solid Food: 10/18/18 Time of Last Intake of Solid Foods: 23:59 Procedure Planning Contraindications for Sedation: none Current Medications Reviewed: Yes Notes The planned sedation has been discussed with the patient. Informed Consent was obtained. I have identified the patient, determined the appropriateness of benjamin tion and have assessed the patient immediately prior to the procedure. All medicine(s) and interventions are by my order.
--- NOTE | 2018-10-19 13:51 | Post Operative Brief Note ---
Immediate Post Op Note v1 Date of Surgery October 19, 2018 Pre & Post Diagnosis Operation Date: 10/18/18 08:30 Pre-Op Diagnosis: left arm swelling Post-Op Diagnosis: left arm swelling Operation Date: 10/19/18 13:15 Pre-Op Diagnosis: end stage renal disease Post-Op Diagnosis: end stage renal disease Procedure Operation Date: 10/18/18 08:30 Actual Procedures p Left Arm Fistulogram, Percutaneous Transluminal Angioplasty Venous, Central and Peripheral, Moderate Concious Sedation 0853 to 1000(Left) - Daquan Hemphill MD Operation Date: 10/19/18 13:15 Actual Procedures p Insertion of Perm Catheter, Right Internal Jugular Approach, Ultrasound Localization Of Right Internal Jugular Vein, Fluoroscopy For Positioning, Moderate Concious Sedation 1329 to 1356 (Right) - Daquan Hemphill MD Surgeon Daquan Hemphill MD Geriatric Social Worker MD Amanda Estimated Blood Loss 4 Findings Consistent with Post-Op Diagnosis Anesthesia Type RN Sedation Complications none Disposition Accompanied Patient To Recovery: No Disposition: Recovery Room
--- NOTE | 2018-10-19 13:53 | Communication Note ---
Date of Service: October 19, 2018 Will need a right basilic vein fistula creation
--- NOTE | 2018-10-19 14:18 | Family Medicine Progress Note ---
Date of Service October 19, 2018 Assessment & Plan (1) ESRD (end stage renal disease): (1) Acute kidney injury: (1) ESRD (end stage renal disease): 62-year-old female with a past medical history of diabetes, hypertension, HIV, chronic kidney disease presents with end-stage renal disease. Her baseline creatinine is 3-4. Patient is a prisoner from [facility] found to have a greater than 8 and was subsequently brought to the hospital for evaluation. End-stage renal diseaseAKI on CKD -Per nephro -- Biopsy confirmed diabetic nephropathy. -- Surgical note reviewed: no central stenosis. Small basilic vein. May need AVF ligation. -- Plan IJ THC this afternoon followed by 1st run HD. Orders have been entered into EMR and HD RN notified -- No adjustment in HIV medications is necessary at this time based on change in kidney function. -- BP Improved. Continue amlodipine 10 mg daily, Coreg 50 mg BID and hydralazine 50 mg TID. -- Home dose of Torsemide has been held but may be restarted as needed. -- No signs of active bleeding. -- Iron profile acceptable. -- Epogen 4,000 U SQ given 10/14/18. Per Vascular surgery - -- Will need right basilic vein fistula creation Edema of the left upper extremity Venous Doppler of the left upper extremity did not show any signs of clots Vascular surgery consultedveno/fistulogram did not show evidence of central stenosis Anemia in the setting of chronic kidney disease Received Epogen on 10/14/2018 No signs of acute blood loss Hypertension Continue Coreg, hydralazine, amlodipine HIV CD4 count is currently pending Patient admits to being noncompliant on medications. States noncompliance was because she was isolating herself at the correction because of URI and unable to get her medications Sick sinus syndrome Status post pacemaker, continue to monitor heart rates Glaucoma Continue latanoprost Transgender Continue estradiol patch, finasteride DVT prophylaxis Heparin 5000 twice daily Code full Discussed with guard from [facility] who confirms that they will be able to coordinate HD. Supervising Physician Co-Signing Physician Notes Resident Physician Supervision Note: I independently interviewed and examined the patient and verified the read history and physical, reviewed labs and image studies, discussed the case with the resident Dr. Reilly and agree with the findings and care plan. Subjective 62-year-old female history of diabetes, hypertension, HIV presents to [facility] with end-stage renal disease, creatinine greater than 8. Today the patient has no acute complaints. She states that the swelling in her left arm has remained stable. Review of systems Constitutional; no fevers, chills, night sweats Chest; no chest pain, no palpitations, no shortness of breath GI; no abdominal pain, no nausea/vomiting/diarrhea Physical Exam Vital Signs (Past 24 Hours): Last Vital Signs Temp 36.6 C 10/19/18 12:45 Pulse 70 10/19/18 13:56 Resp 16 10/19/18 13:56 BP 109/60 10/19/18 13:56 Pulse Ox 95 10/19/18 13:56 Constitutional: WD/WN, vitals as above Eyes: PERRL, conjunctivae normal, anicteric sclerae ENMT: external ear and nose normal, oropharynx normal Neck: trachea midline, no thyromegaly Respiratory: normal respiratory effort, lungs clear to auscultation Gastrointestinal (Abdomen): normal bowel sounds, soft, nontender, no hepatosplenomegaly Musculoskeletal: no cyanosis or clubbing, extremities motor strength 5/5 Head/Neck/Chest: normocephalic and head atraumatic Persistent left upper extremity edema Skin: no rashes, warm and dry Lymphatic: no cervical or axillary lymphadenopathy Results & Data Laboratory Results Laboratory Last Values WBC 5.01 K/uL (4.8-10.8) 10/19/18 06:14 RBC 2.51 M/uL (4.7-6.1) L 10/19/18 06:14 Hgb 7.7 g/dL (14.0-18.0) L 10/19/18 06:14 Hct 23.4 % (42-52) L 10/19/18 06:14 MCV 93.2 fL (80-100) 10/19/18 06:14 MCH 30.7 pg (25-34) 10/19/18 06:14 MCHC 32.9 g/dL (32-36) 10/19/18 06:14 RDW Std Deviation 46.3 fL (36.4-46.3) 10/19/18 06:14 RDW Coeff of Anam 13.9 % (11.5-14.5) 10/19/18 06:14 Plt Count 228 K/uL (130-400) 10/19/18 06:14 MPV 9.6 fL (7.4-10.4) 10/19/18 06:14 PT 10.9 Seconds (9.0-12.0) 10/12/18 17:35 INR 1.1 (0.9-1.1) 10/12/18 17:35 Sodium 138 mmol/L (136-145) 10/19/18 06:14 Potassium 4.7 mmol/L (3.5-5.1) 10/19/18 06:14 Chloride 110 mmol/L (98-107) H 10/19/18 06:14 Carbon Dioxide 19 mmol/L (21-32) L 10/19/18 06:14 Anion Gap 9.0 (3-11) 10/19/18 06:14 BUN 97 mg/dl (7-18) H 10/19/18 06:14 Creatinine 8.98 mg/dl (0.6-1.4) H* D 10/19/18 06:14 Est Cr Clr Drug Dosing 6.9 ml/min 10/19/18 06:14 Est GFR ( Amer) 6.5 10/19/18 06:14 Est GFR (Non-Af Amer) 5.6 10/19/18 06:14 BUN/Creatinine Ratio 10.8 (10-20) 10/19/18 06:14 Glucose 93 mg/dl (70-99) 10/19/18 06:14 POC Glucose 130 (70-99) H 10/19/18 11:56 Calcium 7.0 mg/dl (8.5-10.1) L 10/19/18 06:14 Phosphorus 5.5 mg/dl (2.5-4.9) H 10/18/18 06:27 Magnesium 2.0 mg/dl (1.8-2.4) 10/15/18 07:14 Iron 67 mcg/dl (35-175) 10/15/18 07:14 Transferrin 150 mg/dl (200-360) L 10/15/18 07:14 Transferrin % Sat 32 % (20-50) 10/15/18 07:14 Ferritin 669.9 ng/ml (8-388) H 10/15/18 07:14 Total Bilirubin 0.3 mg/dl (0.2-1) 10/14/18 05:08 AST 14 U/L (15-37) L 10/14/18 05:08 ALT 16 U/L (12-78) 10/14/18 05:08 Alkaline Phosphatase 70 U/L (45-117) 10/14/18 05:08 Total Protein 6.7 gm/dl (6.4-8.2) 10/14/18 05:08 Albumin 2.0 gm/dl (3.4-5.0) L 10/18/18 06:27 Globulin 4.9 gm/dl (2.5-4.0) H 10/14/18 05:08 Albumin/Globulin Ratio 0.4 (0.9-2) L 10/14/18 05:08 Urine Color Yellow 10/12/18 20:21 Urine Appearance Clear (Clear) 10/12/18 20:21 Urine pH 7.5 (4.5-7.5) 10/12/18 20:21 Ur Specific [place] 1.019 (1.000-1.030) 10/12/18 20:21 Urine Protein 4+ (Negative) H 10/12/18 20:21 Urine Glucose (UA) 1+ (Negative) H 10/12/18 20:21 Urine Ketones Negative (Negative) 10/12/18 20:21 Urine Blood Negative (Negative) 10/12/18 20:21 Urine Nitrite Negative (Negative) 10/12/18 20:21 Urine Bilirubin Negative (Negative) 10/12/18 20:21 Urine Urobilinogen Negative (Negative) 10/12/18 20:21 Ur Leukocyte Esterase Negative (Negative) 10/12/18 20:21 Urine WBC (Auto) 1-5 /hpf (0-5) 10/12/18 20:21 Urine RBC (Auto) 0-4 /hpf (0-4) 10/12/18 20:21 U Hyaline Cast (Auto) 0 /lpf (0-5) 10/12/18 20:21 U Epithel Cells (Auto) 20-30 /lpf (0-5) H 10/12/18 20:21 Urine Bacteria (Auto) Negative (Negative) 10/12/18 20:21 Nasal Screen MRSA (PCR) Negative (Negative) 10/12/18 21:08 Absolute Lymphocytes 1182 cells/uL (850-3900) 10/15/18 07:14 % CD4 Cells 25 % (30-61) L 10/15/18 07:14 Absolute CD4 Count 295 cells/uL (490-1740) L 10/15/18 07:14 Hep Bs Antigen Neg (Neg) 10/13/18 10:46 Hep Bs Antibody Non-Immune 10/13/18 10:46 Hep Bs Antibody, Quant 5.51 mIU/mL (>or=10mIU/mL Immune) L 10/13/18 10:46 Resident Activity Tracking Resident Involvement: Resident Care Provided Care Provided: Adult [facility] Medicine
--- NOTE | 2018-10-19 15:51 | Operative Report ---
DATE OF OPERATION: 10/19/2018 PREOPERATIVE DIAGNOSIS: End-stage renal failure. POSTOPERATIVE DIAGNOSIS: End-stage renal failure. PROCEDURES: Ultrasound-guided right IJ access, right tunneled IJ PermCath, fluoroscopy for positioning, moderate sedation([id number]). SURGEON: Dr. Daquan Hemphill. TECHNICAL TRANSLATOR: Dr. Ericka Odom. ESTIMATED BLOOD LOSS: 4 mL. ANESTHESIA: Moderate sedation plus local. COMPLICATIONS: None. INDICATIONS: Stacey Dash is a 62-year-old person with a history of end-stage renal disease. She now requires dialysis. She previously underwent placement of a left arm AV fistula at the antecubital fossa, but this was not functional. A fistulogram was performed yesterday, but did not show any areas of central venous stenosis or areas amenable to intervention. She will likely require fistula ligation on the left side and creation of new hemodialysis access on the right side. In the interim, she was recommended to undergo placement of a tunneled hemodialysis catheter for initiation of hemodialysis. The risks, benefits and alternatives were discussed with the patient and she consented to the procedure. DESCRIPTION OF PROCEDURE: The patient was taken to the endovascular suite and placed in supine position. The right neck was assessed with ultrasound and the IJ appeared patent. The right neck was then prepped and draped in the usual sterile fashion. A safety timeout was performed to identify the patient, procedure, and sidedness were correctly identified. Ultrasound was again used to identify the right IJ and it appeared patent. Local anesthesia was used to anesthetize the skin overlying the right IJ. It was accessed with an 18-gauge access needle. J-wire easily passed through the needle and down into the IVC. Local anesthesia was then used to anesthetize the skin on the infraclavicular chest up into the IJ access site. A small skin walter was made in the infraclavicular chest and at the IJ access site. A dialysis catheter was then tunneled from the infraclavicular incision to the IJ access site. A dilator was passed over the wire and removed. A peelaway sheath was then passed over the wire and the dilator and wire removed. The catheter was then placed in the peelaway sheath and the peelaway sheath removed. Fluoroscopy confirmed positioning of the hemodialysis catheter in the SVC. There was a slight kink in the catheter and the wire was placed through the red port of the catheter and this alleviated the kink in the catheter. It was sutured to the chest wall with 2 interrupted nylon sutures. The IJ access site was closed with a single 4-0 Vicryl interrupted stitch. Dermabond skin glue was applied to the IJ access site. A sterile dressing was applied. The patient tolerated the procedure well and there were no immediate complications. She was transferred to the recovery area in stable condition. She tolerated the procedure well and there were no immediate complications. Dr. Daquan Hemphill was present for the entire procedure. I attest to the content of the Intraoperative Record and any orders documented therein. Any exceptions are noted below. MIRIAMD
[2018-10-19] MEDS: LATANOPROST 0.005% OP SOLN 2.5 ML BTL OP SCH (21:05)
[2018-10-19] MEDS: ACETAMINOPHEN 325 MG TAB PO PRN (22:03)
[2018-10-20] MEDS ORDERED: BENZONATATE 100 MG CAPSULE PO PRN (07:43)
[2018-10-20] MEDS ORDERED: SODIUM CHLORIDE 0.9% 1000ML 1,000 ML IV PRN (09:06)
[2018-10-20 09:07] LABS: Hematocrit (blood only) 22.1 % (42-52); Hemoglobin 7.4 g/dL (14.0-18.0); Mean Corpuscular Hgb Conc 33.5 g/dL (32-36); Mean Corpuscular Volume 93.6 fL (80-100); Mean Platelet Volume 9.5 fL (7.4-10.4); Platelet Count 221 K/uL (130-400); RDW Coefficient of Variation 14.5 % (11.5-14.5); RDW Standard Deviation 47.9 fL (36.4-46.3); Red Blood Count 2.36 M/uL (4.7-6.1); White Blood Count 6.13 K/uL (4.8-10.8)
[2018-10-20] MEDS ORDERED: EPOETIN ALFA 10,000 UNITS/ML VIAL IV ONE (09:07)
[2018-10-20] MEDS: ROSUVASTATIN CALCIUM 10 MG TAB PO SCH (09:13)
[2018-10-20] MEDS: FINASTERIDE 5 MG TAB PO SCH (09:13)
[2018-10-20] MEDS: NEPHROCAPS PO SCH (09:13)
[2018-10-20] MEDS: ALBUTEROL HFA 8 GM INHALER INH SCH ×5 (09:14→23:49)
[2018-10-20] MEDS: CARVEDILOL 25 MG TAB PO SCH ×2 (09:14→21:48)
[2018-10-20] MEDS: AMLODIPINE BESYLATE 5 MG TAB PO SCH (09:14)
[2018-10-20] MEDS ORDERED: BISACODYL 5 MG TABEC PO ONE (09:42)
[2018-10-20 09:58] LABS: BUN Creatinine Ratio 9.4 (10-20); Calcium 7.1 mg/dl (8.5-10.1); Est GFR (African American) 7.6; Est GFR (Non-African American) 6.6; Potassium 4.6 mmol/L (3.5-5.1)
[2018-10-20] MEDS: LAMIVUDINE 100 MG PO SCH (10:25)
[2018-10-20] MEDS: PREZCOBIX PO SCH (10:25)
[2018-10-20] MEDS: TIVICAY 50 MG PO SCH (10:25)
[2018-10-20] MEDS: DOCUSATE SODIUM 100 MG CAP PO SCH (10:26)
[2018-10-20] MEDS: HEPARIN SOD 5,000 UNIT/0.5 ML VIAL SQ SCH ×2 (10:26→21:52)
[2018-10-20] MEDS: TENOFOVIR 300 MG PO SCH (10:26)
[2018-10-20] MEDS: INSULIN ASPART 100 UNITS/ML 3 ML PEN SC SCH ×4 (10:28→21:56)
--- NOTE | 2018-10-20 11:12 | Nephrology Progress Note ---
Date of Service October 20, 2018 Assessment & Plan (1) ESRD (end stage renal disease): -- Biopsy confirmed diabetic nephropathy. -- Surgical note reviewed: no central stenosis. Small basilic vein. May need AVF ligation. -- Will provide 2nd HD treatment today. No heparin due to recent IJ THC insertion (2) HIV disease: -- No adjustment in medications is necessary at this time based on change in kidney function. (3) HTN (hypertension): -- Improved. Continue amlodipine 10 mg daily, Coreg 50 mg BID and hydralazine 50 mg TID. -- Home dose of Torsemide has been held but may be restarted as needed. (4) Anemia: -- Iron profile acceptable. -- Epogen 4,000 U SQ given 10/14/18. Subjective Miss Dash was seen & examined in her hospital room this morning. Her left arm remains swollen. Surgical note indicates small basilic vein and need to ligate AVF. She underwent R IJ THC insertion yesterday and 1st run HD. She complains of fatigue but denies fever, angina or dyspnea Physical Exam Vital Signs (Past 24 Hours): Last Vital Signs Temp 36.7 C 10/20/18 07:00 Pulse 69 10/20/18 07:00 Resp 18 10/20/18 07:00 BP 144/72 H 10/20/18 07:00 Pulse Ox 100 10/20/18 07:00 Eyes: PERRL, conjunctivae normal, anicteric sclerae ENMT: external ear and nose normal, oropharynx normal Neck: trachea midline, no thyromegaly R IJ THC site w/ dressing in place Respiratory: normal respiratory effort, lungs clear to auscultation Cardiovascular: Rate/Rhythm: regular rate and regular rhythm Heart Sounds: no murmur Extremities: + AV fistula (+ bruit. L arm swollen) Gastrointestinal (Abdomen): normal bowel sounds, soft, nontender, no hepatosplenomegaly Musculoskeletal: no cyanosis or clubbing, extremities motor strength 5/5 Results & Data Laboratory Results Laboratory Tests 10/19/18 10/19/18 06:14 06:14 WBC 5.01 Hgb 7.7 L Hct 23.4 L Plt Count 228 Sodium 138 Potassium 4.7 Chloride 110 H Carbon Dioxide 19 L BUN 97 H Creatinine 8.98 H* D Glucose 93
--- NOTE | 2018-10-20 14:26 | Family Medicine Progress Note ---
Date of Service October 20, 2018 Assessment & Plan (1) ESRD (end stage renal disease): 62-year-old female with a past medical history of diabetes, hypertension, HIV, chronic kidney disease presents with end-stage renal disease. Her baseline creatinine is 3-4. Patient is a prisoner from [facility] found to have a greater than 8 and was subsequently brought to the hospital for evaluation. End-stage renal diseaseAKI on CKD -Per nephro -- Biopsy confirmed diabetic nephropathy. -- Surgical note reviewed: no central stenosis. Small basilic vein. May need AVF ligation. -- IJ THC placed 10/19/18. Patient has received hemodialysis twice. -- No adjustment in HIV medications is necessary at this time based on change in kidney function. -- BP Improved. Continue amlodipine 10 mg daily, Coreg 50 mg BID and hydralazine 50 mg TID. -- Home dose of Torsemide has been held but may be restarted as needed. -- No signs of active bleeding. -- Iron profile acceptable. -- Epogen 4,000 U SQ given 10/14/18. Per Vascular surgery - -- Will need right basilic vein fistula creation Nausea/constipation Continue to follow, provide bowel regimen No indication of bowel obstruction on physical exam. The patient does have a p ast medical history of SBO, continue to follow. Edema of the left upper extremity Venous Doppler of the left upper extremity did not show any signs of clots Vascular surgery consultedveno/fistulogram did not show evidence of central stenosis Anemia in the setting of chronic kidney disease Received Epogen on 10/14/2018 No signs of acute blood loss Hypertension Continue Coreg, hydralazine, amlodipine HIV CD4 count is 295 Patient admits to being noncompliant on medications. States noncompliance was because she was isolating herself at the snf because of URI and unable to get her medications - continue HIV home meds. Sick sinus syndrome Status post pacemaker, continue to monitor heart rates Glaucoma Continue latanoprost Transgender Continue estradiol patch, finasteride DVT prophylaxis Heparin 5000 twice daily Code Full code Disposition; patient will be transferred to [facility] needs to complete 3 dialysis treatments prior to transfer. Continue to follow with case management. In addition, Dr. Hemphill discussed need for basilic vein procedureneed to follow-up whether this is for discharge or in the outpatient setting? Follow-up on patient's constipation/nausea. Patient has a past medical history of small bowel obstructionno physical signs at the moment. (2) Acute kidney injury: Supervising Physician Co-Signing Physician Notes Resident Physician Supervision Note: I independently interviewed and examined the patient and verified the read history and physical, reviewed labs and image studies, discussed the case with the resident Dr. Reilly and agree with the findings and care plan. Subjective 62-year-old female history of diabetes, hypertension, HIV presents to [facility] [address] with end-stage renal disease, creatinine greater than 8. Patient reports having constipation and nausea following meals. She states that she still has an appetite is able to keep food down. She does relate that she vomited on Wednesday. Review of systems Constitutional; no fevers, chills, night sweats Chest; no chest pain, no palpitations, no shortness of breath GI; no abdominal pain, no nausea/vomiting/diarrhea Physical Exam Vital Signs (Past 24 Hours): Last Vital Signs Temp 37.2 C 10/20/18 11:18 Pulse 70 10/20/18 14:00 Resp 18 10/20/18 07:00 BP 128/68 10/20/18 14:00 Pulse Ox 100 10/20/18 07:00 Constitutional: WD/WN, vitals as above Eyes: PERRL, conjunctivae normal, anicteric sclerae ENMT: external ear and nose normal, oropharynx normal Neck: trachea midline, no thyromegaly Respiratory: normal respiratory effort, lungs clear to auscultation Gastrointestinal (Abdomen): normal bowel sounds, soft, nontender, no hepatosplenomegaly Musculoskeletal: no cyanosis or clubbing, extremities motor strength 5/5 Head/Neck/Chest: normocephalic and head atraumatic Skin: no rashes, warm and dry Lymphatic: no cervical or axillary lymphadenopathy Results & Data Laboratory Results Laboratory Last Values WBC 6.13 K/uL (4.8-10.8) 10/20/18 08:19 RBC 2.36 M/uL (4.7-6.1) L 10/20/18 08:19 Hgb 7.4 g/dL (14.0-18.0) L 10/20/18 08:19 Hct 22.1 % (42-52) L 10/20/18 08:19 MCV 93.6 fL (80-100) 10/20/18 08:19 MCH 31.4 pg (25-34) 10/20/18 08:19 MCHC 33.5 g/dL (32-36) 10/20/18 08:19 RDW Std Deviation 47.9 fL (36.4-46.3) H 10/20/18 08:19 RDW Coeff of Anam 14.5 % (11.5-14.5) 10/20/18 08:19 Plt Count 221 K/uL (130-400) 10/20/18 08:19 MPV 9.5 fL (7.4-10.4) 10/20/18 08:19 PT 10.9 Seconds (9.0-12.0) 10/12/18 17:35 INR 1.1 (0.9-1.1) 10/12/18 17:35 Sodium 138 mmol/L (136-145) 10/20/18 08:19 Potassium 4.6 mmol/L (3.5-5.1) 10/20/18 08:19 Chloride 109 mmol/L (98-107) H 10/20/18 08:19 Carbon Dioxide 21 mmol/L (21-32) 10/20/18 08:19 Anion Gap 9.0 (3-11) 10/20/18 08:19 BUN 74 mg/dl (7-18) H 10/20/18 08:19 Creatinine 7.82 mg/dl (0.6-1.4) H* D 10/20/18 08:19 Est Cr Clr Drug Dosing 7.8 ml/min 10/20/18 08:19 Est GFR ( Amer) 7.6 10/20/18 08:19 Est GFR (Non-Af Amer) 6.6 10/20/18 08:19 BUN/Creatinine Ratio 9.4 (10-20) L 10/20/18 08:19 Glucose 104 mg/dl (70-99) H 10/20/18 08:19 POC Glucose 184 (70-99) H 10/19/18 20:24 Calcium 7.1 mg/dl (8.5-10.1) L 10/20/18 08:19 Phosphorus 5.5 mg/dl (2.5-4.9) H 10/18/18 06:27 Magnesium 2.0 mg/dl (1.8-2.4) 10/15/18 07:14 Iron 67 mcg/dl (35-175) 10/15/18 07:14 Transferrin 150 mg/dl (200-360) L 10/15/18 07:14 Transferrin % Sat 32 % (20-50) 10/15/18 07:14 Ferritin 669.9 ng/ml (8-388) H 10/15/18 07:14 Total Bilirubin 0.3 mg/dl (0.2-1) 10/14/18 05:08 AST 14 U/L (15-37) L 10/14/18 05:08 ALT 16 U/L (12-78) 10/14/18 05:08 Alkaline Phosphatase 70 U/L (45-117) 10/14/18 05:08 Total Protein 6.7 gm/dl (6.4-8.2) 10/14/18 05:08 Albumin 2.0 gm/dl (3.4-5.0) L 10/18/18 06:27 Globulin 4.9 gm/dl (2.5-4.0) H 10/14/18 05:08 Albumin/Globulin Ratio 0.4 (0.9-2) L 10/14/18 05:08 Urine Color Yellow 10/12/18 20:21 Urine Appearance Clear (Clear) 10/12/18 20:21 Urine pH 7.5 (4.5-7.5) 10/12/18 20:21 Ur Specific [place] 1.019 (1.000-1.030) 10/12/18 20:21 Urine Protein 4+ (Negative) H 10/12/18 20:21 Urine Glucose (UA) 1+ (Negative) H 10/12/18 20:21 Urine Ketones Negative (Negative) 10/12/18 20:21 Urine Blood Negative (Negative) 10/12/18 20:21 Urine Nitrite Negative (Negative) 10/12/18 20:21 Urine Bilirubin Negative (Negative) 10/12/18 20:21 Urine Urobilinogen Negative (Negative) 10/12/18 20:21 Ur Leukocyte Esterase Negative (Negative) 10/12/18 20:21 Urine WBC (Auto) 1-5 /hpf (0-5) 10/12/18 20:21 Urine RBC (Auto) 0-4 /hpf (0-4) 10/12/18 20:21 U Hyaline Cast (Auto) 0 /lpf (0-5) 10/12/18 20:21 U Epithel Cells (Auto) 20-30 /lpf (0-5) H 10/12/18 20:21 Urine Bacteria (Auto) Negative (Negative) 10/12/18 20:21 Nasal Screen MRSA (PCR) Negative (Negative) 10/12/18 21:08 Absolute Lymphocytes 1182 cells/uL (850-3900) 10/15/18 07:14 % CD4 Cells 25 % (30-61) L 10/15/18 07:14 Absolute CD4 Count 295 cells/uL (490-1740) L 10/15/18 07:14 Hep Bs Antigen Neg (Neg) 10/13/18 10:46 Hep Bs Antibody Non-Immune 10/13/18 10:46 Hep Bs Antibody, Quant 5.51 mIU/mL (>or=10mIU/mL Immune) L 10/13/18 10:46 Resident Activity Tracking Resident Involvement: Resident Care Provided Care Provided: Adult Hospital Medicine
[2018-10-20] MEDS: POLYETHYLENE (MIRALAX) 17 GM PACK PO SCH ×4 (14:52→21:57)
[2018-10-20] MEDS: ONDANSETRON INJ 2 MG/ML 2 ML VIAL IV PRN (19:15)
[2018-10-20] MEDS: LATANOPROST 0.005% OP SOLN 2.5 ML BTL OP SCH (21:49)
[2018-10-21] MEDS: POLYETHYLENE (MIRALAX) 17 GM PACK PO SCH ×4 (02:26→13:08)
[2018-10-21] MEDS: ALBUTEROL HFA 8 GM INHALER INH SCH ×3 (04:23→12:29)
[2018-10-21 06:58] LABS: Creatinine Clr Calc Pharmacy 7.6 ml/min
[2018-10-21 07:34] LABS: Hemoglobin 7.7 g/dL (14.0-18.0); Mean Corpuscular Hgb Conc 36.7 g/dL (32-36); Mean Corpuscular Volume 93.3 fL (80-100); Mean Platelet Volume 8.8 fL (7.4-10.4); Nucleated RBC # (auto) 0.03 K/uL (0-0); Nucleated RBC % (auto) 0.5 %; Platelet Count 175 K/uL (130-400); RDW Coefficient of Variation 14.8 % (11.5-14.5); RDW Standard Deviation 49.3 fL (36.4-46.3); Red Blood Count 2.25 M/uL (4.7-6.1); White Blood Count 6.71 K/uL (4.8-10.8)
[2018-10-21 07:51] VITALS: O2SAT 93
[2018-10-21 08:20] LABS: BUN Creatinine Ratio 7.6 (10-20); Creatinine Clr Calc Pharmacy 10.5 ml/min; Est GFR (African American) 11.3; Est GFR (Non-African American) 9.7; Potassium 4.1 mmol/L (3.5-5.1)
[2018-10-21] MEDS: HEPARIN SOD 5,000 UNIT/0.5 ML VIAL SQ SCH (08:34)
[2018-10-21] MEDS ORDERED: SODIUM CHLORIDE 0.9% 1000ML 1,000 ML IV PRN (08:48)
[2018-10-21] MEDS: ROSUVASTATIN CALCIUM 10 MG TAB PO SCH (08:50)
[2018-10-21] MEDS: NEPHROCAPS PO SCH (08:50)
[2018-10-21] MEDS: AMLODIPINE BESYLATE 5 MG TAB PO SCH (08:50)
[2018-10-21] MEDS: CARVEDILOL 25 MG TAB PO SCH (08:50)
[2018-10-21] MEDS: PREZCOBIX PO SCH (08:51)
[2018-10-21] MEDS: FINASTERIDE 5 MG TAB PO SCH (08:51)
[2018-10-21] MEDS: TIVICAY 50 MG PO SCH (08:51)
[2018-10-21] MEDS: LAMIVUDINE 100 MG PO SCH (08:51)
[2018-10-21] MEDS: DOCUSATE SODIUM 100 MG CAP PO SCH (08:57)
[2018-10-21] MEDS: INSULIN ASPART 100 UNITS/ML 3 ML PEN SC SCH ×2 (09:00→13:07)
[2018-10-21] MEDS ORDERED: EPOETIN ALFA 2,000 UNITS/ML VIAL IV SCH (09:15)
[2018-10-21] MEDS ORDERED: HEPARIN SOD (PORCINE) 1000 UNIT/ML 10 ML VIAL IV SCH (09:15)
--- NOTE | 2018-10-21 09:46 | Communication Note ---
Date of Service: October 21, 2018 Plan on doing a right antecubital basilic vein fistula and ligation of his left arm fistula on Wednesday morning. I have discussed the risks options and benefits of the procedure with the patient. The patient understands the risks options and benefits and agrees to the procedure.
--- NOTE | 2018-10-21 10:11 | Communication Note ---
Date of Service: October 21, 2018 OR time not available on Wednesday. Will have to [facility] for Wednesday.
--- NOTE | 2018-10-21 10:25 | Nephrology Progress Note ---
Date of Service October 21, 2018 Assessment & Plan (1) ESRD (end stage renal disease): -- Biopsy confirmed diabetic nephropathy. -- Surgical note reviewed: no central stenosis. Small basilic vein. May need AVF ligation. -- Will provide 3rd HD treatment today. No heparin due to recent IJ THC insertion (2) HIV disease: -- No adjustment in medications is necessary at this time based on change in kidney function. (3) HTN (hypertension): -- Improved. Continue amlodipine 10 mg daily, Coreg 50 mg BID and hydralazine 50 mg TID. (4) Anemia: -- Iron profile acceptable. -- Will provide UZIEL w/ HD Subjective Miss Dash was seen & examined in her hospital room this morning. Her left arm remains swollen. Surgical note indicates small basilic vein and need to ligate AVF. She underwent her 2nd dialysis treatment yesterday w/ 2500 cc UF. Miss Dash complains of fatigue but denies fever, angina or dyspnea Physical Exam Vital Signs (Past 24 Hours): Last Vital Signs Temp 36.9 C 10/21/18 07:50 Pulse 67 10/21/18 07:50 Resp 16 10/21/18 07:50 BP 147/75 H 10/21/18 07:50 Pulse Ox 93 10/21/18 07:50 Eyes: PERRL, conjunctivae normal, anicteric sclerae ENMT: external ear and nose normal, oropharynx normal Neck: trachea midline, no thyromegaly Respiratory: normal respiratory effort, lungs clear to auscultation Cardiovascular: Rate/Rhythm: regular rate and regular rhythm Heart Sounds: no murmur Extremities: + AV fistula (+ bruit. L arm swollen) Gastrointestinal (Abdomen): normal bowel sounds, soft, nontender, no hepatosplenomegaly Musculoskeletal: no cyanosis or clubbing, extremities motor strength 5/5 Results & Data Laboratory Results Laboratory Tests 10/21/18 10/21/18 07:07 07:07 WBC 6.71 Hgb 7.7 L Hct 21.0 L Plt Count 175 Sodium 137 Potassium 4.1 Chloride 106 Carbon Dioxide 24 BUN 43 H Creatinine 5.66 H* D Glucose 113 H Calcium 7.0 L
[2018-10-21] MEDS: ACETAMINOPHEN 325 MG TAB PO PRN (10:55)
--- NOTE | 2018-10-21 14:16 | Discharge Summary ---
Date of Service October 21, 2018 Admission HPI Per Admitting Provider This is an incarcerated 62 yo transgendered M, who identifies as female, with PMHx of HIV, Hep B, CKD stage IV with acute worsening renal function, DM II, sick sinus syndrome s/p pacemaker insertion, who presents from [facility]. Pt notes she has had a cold in the past week due to worsening of a smoke/fume in the senior living. 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 Pt had a cough, nonproductive, but otherwise denies fever, chills and sweats. Diet and oral intake has remained at baseline, and denies any changes in bowel. Pt does admit to polyuria, light/clear urine recently. Denies any other acute symptoms. ER notes the patient was sent due to worsening of Cr on labs at [facility]. A telemedicine barrel washer was following the patient as outpatient. Cr. elevated at 7.49, K =4.6. Principal Diagnosis End Stage Renal Disease Requiring Dialysis Discharge Exam Constitutional WD/WN, vitals as above well developed, well nourished, cooperative and comfortable; no acute distress and not ill appearing Eyes PERRL, conjunctivae normal, anicteric sclerae ENMT external ear and nose normal, oropharynx normal Ears: no hearing impairment Nose: no nasal discharge Mouth: no oral mucosal abnormality and oral mucous membranes not dry Neck trachea midline, no thyromegaly normal visual inspection; no tracheal deviation and neck nontender Respiratory normal respiratory effort, lungs clear to auscultation able to speak in complete sentences; no respiratory distress, does not use accessory muscles, no cough, not tachypneic and no audible wheezes Auscultation: lungs clear to auscultation bilaterally; no rhonchi and no wheezes Cardiovascular RRR, no murmur, no edema Rate/Rhythm: regular rate and regular rhythm Heart Sounds: normal S1 and normal S2; no gallop and no murmur Vessels: no carotid bruit Extremities: normal capillary refill and + AV fistula (+ bruit. L arm swollen) Chest (Breasts) Chest: + pacemaker and + vascular access device or port (right side anterior cathetor) Gastrointestinal (Abdomen) normal bowel sounds, soft, nontender, no hepatosplenomegaly Inspection/Auscultation: abdomen normal to inspection and normal bowel sounds; abdomen not distended Musculoskeletal no cyanosis or clubbing, extremities motor strength 5/5 Head/Neck/Chest: normocephalic and neck supple Extremities: strength 5/5 throughout; full ROM of extremities, no cyanosis and no clubbing Skin no rashes, warm and dry no erythema Neurologic moves all extremities and awake; no focal motor deficits and not confused Speech / Cognition: no expressive aphasia and no receptive aphasia Cranial Nerves: EOM intact bilaterally, normal facial strength and tongue midline Psychiatric Orientation: alert, oriented x 3 and cooperative Eye Contact: good eye contact Affect: euthymic affect Thought Process: clear/coherent thought process Cognition: recent memory grossly intact Lymphatic no cervical or axillary lymphadenopathy Discharge Data Allergies Allergy/AdvReac Type Severity Reaction Status Date / Time abacavir Allergy Severe Unknown Verified 10/12/18 18:46 Penicillins Allergy Intermediate UNKNOWN Verified 10/12/18 18:46 Consultations 10/12/18 18:08 ED Decision to Admit Stat 10/12/18 18:24 Consult Nephrology Stat 10/14/18 10:06 Consult Vascular Surgery Routine Procedures Performed Operation Date: 10/18/18 08:30 Actual Procedures p Left Arm Fistulogram, Percutaneous Transluminal Angioplasty Venous, Central and Peripheral, Moderate Concious Sedation 0853 to 1000(Left) - Daquan Hemphill MD Operation Date: 10/19/18 13:15 Actual Procedures p Insertion of Perm Catheter, Right Internal Jugular Approach, Ultrasound Localization Of Right Internal Jugular Vein, Fluoroscopy For Positioning, M oderate Concious Sedation 1329 to 1356(Right) - Daquan Hemphill MD Operation Date: 10/25/18 08:00 <No data on this case meets the specified criteria> Ordered Studies 10/14/18 08:58 US venous doppler UE LT Routine 10/14/18 10:03 US renal/blad retro comp Routine 10/18/18 07:17 EV angio arteriovenous shunt Routine 10/18/18 10:56 US venous mapping UE RT Routine 10/19/18 12:48 EV cvc insrt tunnel wo prt/creative director Routine US guide vascular access Routine Hospital Course (1) ESRD (end stage renal disease): 62 [id number] with a past medical history of diabetes, hypertension, HIV, chronic kidney disease presents with end-stage renal disease. Her baseline creatinine is 3-4. Patient is a prisoner from [facility] found to have a creatinine greater than 8 and was subsequently brought to the hospital for evaluation. Her left AV fistula was found to be inoperational and a central cathetor was placed for dialysis. Patient received 3 rounds of dialysis at [facility] with Epogen. Was found to have a CD cell count of 295 and encouraged to take her HIV medications. Pt was discharged to [facility] with the understanding that a Right AV Fistula creation will be arranged as outpatient and dialysis will be scheduled in a timely manner - approx 10/24/18. {} End-stage renal diseaseAKI on CKD Pt received dialysis three times at [facility], last dialysis on 10/21/18 via IJ THC placed 10/19/18. Epogen 4000 units given with dialysis. Consider Epogen in future as needed. Per vascular surgery, 'plan on doing a right antecubital basilic vein fistula and ligation of patients left arm fistula.' Per nephro - Biopsy confirmed diabetic nephropathy. - No adjustment in HIV medications is necessary at this time based on change in kidney function. - HTN (hypertension): Continue amlodipine 10 mg daily, Coreg 50 mg BID and hydralazine 50 mg TID, may restart home dose of Torsemide on DC. - Anemia: Iron profile acceptable, UZIEL w/ HD was provided. - OK to discharge provided hemodialysis is provided in a timely fashion, planned for 10/24/18. {} Nausea/constipation Continue to follow, provide bowel regimen No indication of bowel obstruction on physical exam. The patient does have a past medical history of SBO, continue to follow. {} Edema of the left upper extremity Venous Doppler of the left upper extremity did not show any signs of clots Vascular surgery consultedveno/fistulogram did not show evidence of central stenosis {} Anemia in the setting of chronic kidney disease Received Epogen with hemodialysis. No signs of acute blood loss {} Hypertension Managed per nephro as above. {} HIV CD4 count on admission was 295 Patient admits to being noncompliant on medications. States noncompliance was because she was isolating herself at the senior living because of URI and unable to get her medications. Recommend supervised administration of HIV meds. {} History of Sick sinus syndrome status post pacemaker placement. Heart rate within normal limits while in hospital. {} Glaucoma Continued latanoprost {} Gender Identity Disorder Continued estradiol patch, finasteride (2) Acute kidney injury: Total Time Total Time Spent Total Time Spent (In Minutes): 33 Discharge Plan Discharge Items [facility] Disposition: [facility] Reason For Visit: ACUTE ON CHRONIC RENAL FAILURE Discharge Diagnosis: End Stage Renal Disease Requiring Dialysis Discharge Goals: Improve disease control, Prevent disease and Therapeutic intervention Activity: Per 'Additional Instructions' section Non-emergency contact: Primary Care Provider, Surgeon and Rn Chronic Call non-emergency contact if: your symptoms worsen Follow-up/Referrals: Mike SIMMONS [Primary Care Provider] - Diet: Dialysis Renal Addtl Provider Instructions: You were admitted to the hospital because it was found your kidney function had worsened. In the hospital you were confirmed to have worsened kidney disease. You received 3 rounds of dialysis while in the hospital via a cathetor in your chest wall. Dialysis is a procedure where a machine filters and cleans your blood when your kidneys are unable to do so. Information on dialysis will be printed for you. Your AV Fistula in your left arm was found to be non operational, it will need to be closed at some point in the future. You will need a new AV Fistula, likely in your right arm. We have made arrangements for an a new AV fistula to be placed, your old AV Fistula to be closed and for future dialysis appointments. Please take your medications as prescribed, especially your HIV medications. Prescriptions: New amlodipine [Norvasc] 5 mg Tablet 10 mg PO DAILY 30 Days Qty: 60 RF: 0 Continued docusate sodium 250 mg Capsule 250 mg PO BID PRN (Reason: Constipation) RF: 0 torsemide 20 mg Tablet 20 mg PO DAILY RF: 0 hydralazine 25 mg Tablet 25 mg PO TID RF: 0 benzonatate 100 mg Capsule 100 mg PO BID PRN (Reason: Cough) RF: 0 Humulin R Regular U-100 Insuln 100 unit/mL Solution 1 sliding scale dose SUBCUT UD RF: 0 tenofovir disoproxil fumarate [Viread] 300 mg Tablet 300 mg PO 2XWK RF: 0 latanoprost [Xalatan] 0.005 % Drops 1 drp OPB HS RF: 0 carvedilol 25 mg Tablet 50 mg PO BID RF: 0 lamivudine [Epivir HBV] 100 mg Tablet 100 mg PO DAILY RF: 0 sodium bicarbonate 650 mg Tablet 650 mg PO BID RF: 0 glucose 4 gram Tablet,Chewable 1 tab PO QID PRN (Reason: Hypoglycemia) RF: 0 estradiol [Climara] 0.1 mg/24 hr Patch Weekly 1 patch Topical WK RF: 0 finasteride 5 mg Tablet 5 mg PO DAILY RF: 0 rosuvastatin 10 mg Tablet 10 mg PO DAILY RF: 0 Nephro-Ramirez Rx 1-60-300 mg-mg-mcg Tablet 1 tab PO DAILY RF: 0 Tivicay 50 mg Tablet 50 mg PO DAILY RF: 0 Prezcobix 800-150 mg-mg Tablet 1 tab PO DAILY RF: 0 Stand-Alone Forms: [facility] [employer] [facility]/Other Patient Handouts: Dialysis Arteriovenous Fistula, Hemodialysis Discharge Orders: Discharge Order (Routine); Ordered 10/21/18 Ordered By: Davion Escamilla Admission Data Admit Date/Time: 10/12/18 18:23 Attending Provider: Rosario Lee Admit Provider: Rio Damian Primary Care Provider: Mike SIMMONS Other Providers: Gibran Pardo ; Rio Damian ; Bruce Jaramillo ; Daquan Hemphill Service: Medical Other Interventions: Discharge Summary Assessment (RN) Last Done: 10/21/18 16:10 DC Date/Time DO NOT enter until pt leaves facility: 10/21/18 18:55 Supervising Physician Co-Signing Physician Notes Resident Physician Supervision Note: I independently interviewed and examined the patient and verified the read history and physical, reviewed labs and image studies, discussed the case with the resident Dr. Escamilla and agree with the findings and care plan. Time spent in discharge 35 min Resident Activity Tracking Resident Involvement: Resident Care Provided Care Provided: Adult Hospital Medicine
[2018-10-21 14:51] VITALS: TEMP 98.6
[2018-10-21 17:06] VITALS: BP 120/63; PULSE 69
[2018-10-24] MEDS ORDERED: CLINDAMYCIN 600 MG/54 ML BAG IV SCH (06:00)
[2018-10-25] MEDS ORDERED: CLINDAMYCIN 600 MG/54 ML BAG IV SCH (06:00)
== END 2018-10-21 18:55 | DRG 673 ==
LOC: ED 16:27 → 2S 18:23 → SUATTDRO 18:23 → 2S 19:43 → 2N 10-15 12:10 → 4W 10-19 13:43